=== PATIENT | male | born 1945 | race Caucasian/White ===

== ENCOUNTER 2019-04-29 12:52 | Inpatient (IN) | payer OTHER ==
[2019-04-29] MEDS ORDERED: nitroGLYCERIN DRIP* 25,000 MCG/250 ML BTL IV ONE (13:10)
[2019-04-29] MEDS ORDERED: Furosemide IV* 10 MG/ML VIAL (40 MG) IV SLOW PU ONE (13:10)
--- NOTE | 2019-04-29 13:27 | ED ---
Altered Mental Status - HPI Summary HPI Summary: HPI IS LIMITED DUE TO LEVEL 5 CAVEAT - ALTERED MENTAL STATUS Pt is a 74 y/o M presenting to the ED via EMS for AMS. Pt is present with his sister and another family member. Pt was found by his sister lying on the floor. Pts sister states that pt has not been taking his medications including Lisinopril because [facility] [place]. On the night of 04/28/19, pt was symptomatic. The morning of , pt had a skin tear on his arm, was incoherent and confused when found by his family. Pts family states he uses oxygen at home. Pt lives in [place]. - History Of Current Complaint Chief Complaint: EDAltMentalStatus Stated Complaint: AMS PER EMS Time Seen by Provider: 04/29/19 13:03 Hx Obtained From: Family/Health Aid - Sister and another family member Hx From Patient Unobtainable Due To: Altered Mental Status Onset/Duration: Suddenly Timing: Constant, Lasting Minutes Severity Initially: Severe Severity Currently: Severe Character: Confusion Aggravating Factor(s): Unknown Alleviating Factor(s): Unknown - Allergies/Home Medications Allergies/Adverse Reactions: Allergies Allergy/AdvReac Type Severity Reaction Status Date / Time No Known Allergies Allergy Verified 05/15/12 14:04 Home Medications: Home Medications Atorvastatin* [Lipitor*] 10 mg PO DAILY 04/29/19 [History Confirmed 04/29/19] Carvedilol TAB* [Coreg TAB*] 50 mg PO BID 04/29/19 [History Confirmed 04/29/19] Colchicine* [Colcrys*] 0.6 mg PO DAILY 04/29/19 [History Confirmed 04/29/19] Colchicine* [Colcrys*] 1.2 mg PO DAILY 04/29/19 [History Confirmed 04/29/19] Doxepin HCl [Silenor] 10 mg PO BEDTIME 04/29/19 [History Confirmed 04/29/19] Folic Acid TAB* [Folvite TAB*] 1 mg PO DAILY 04/29/19 [History Confirmed ] Furosemide TAB* [Lasix TAB*] 20 mg PO DAILY 04/29/19 [History Confirmed 04/29/19 ] Isosorbide Mononitrate ER TAB* [Imdur ER TAB*] 30 mg PO DAILY 04/29/19 [History Confirmed 04/29/19] Levothyroxine TAB* [Synthroid TAB*] 50 mcg PO DAILY 04/29/19 [History Confirmed 04/29/19] Lisinopril TAB* [Prinivil TAB*] 40 mg PO DAILY 04/29/19 [History Confirmed 04/29] Omeprazole CAP (NF) [Prilosec CAP* 20 MG] 20 mg PO DAILY 04/29/19 [History Confirmed 04/29/19] Rivaroxaban TAB(*) [Xarelto 20 mg] 20 mg PO DAILY 04/29/19 [History Confirmed ] metFORMIN* [Glucophage 1000 MG TAB *] 1,000 mg PO BID 04/29/19 [History Confirmed 04/29/19] PMH/Surg Hx/FS Hx/Imm Hx Previously Healthy: No - LIMITED DUE TO LEVEL 5 CAVEAT - ALTERED MENTAL STATUS Endocrine/Hematology History: Reports: Hx Diabetes Denies: Hx Anticoagulant Therapy, Hx Thyroid Disease Cardiovascular History: Reports: Hx Hypertension Denies: Hx Pacemaker/ICD Respiratory History: Reports: Hx Asthma, Hx Chronic Obstructive Pulmonary Disease (COPD) - YES 02 DEPENDENT AT HOME History: Denies: Hx Renal Disease Neurological History: Denies: Hx Dementia, Hx Seizures Psychiatric History: Denies: Hx Substance Abuse - Surgical History Surgical History: None Surgery Procedure, Year, and Place: None Infectious Disease History: Unable to Obtain/Confirm Infectious Disease History: Denies: Hx Hepatitis, Hx Human Immunodeficiency Virus (HIV), Traveled Outside the [place] in Last 30 Days - Family History Known Family History: Negative: Diabetes - Social History Alcohol Use: None Hx Substance Use: No Substance Use Type: Reports: None Smoking Status (MU): Unknown if Ever Smoked Review of Systems Positive: Other - Positive skin tear Neurological: Other - Positive confusion and incoherent per family All Other Systems Reviewed And Are Negative: No - Comments Additional Review of Systems Comments: ROS IS LIMITED DUE TO LEVEL 5 CAVEAT - ALTERED MENTAL STATUS Physical Exam - Summary Physical Exam Summary: PHYSICAL EXAM IS LIMITED BY LEVEL 5 CAVEAT - ALTERED MENTAL STATUS Constitutional: Well-developed, Well-nourished, Alert. (-) Distressed Skin: Warm, Dry HENT: Normocephalic; Atraumatic Eyes: Conjunctiva normal Neck: Musculoskeletal ROM normal neck. (-) JVD, (-) Stridor, (-) Tracheal deviation Cardio: Rhythm regular, rate normal, Heart sounds normal; Intact distal pulses; The pedal pulses are 2+ and symmetric. Radial pulses are 2+ and symmetric. (-) Murmur Pulmonary/Chest wall: Effort normal. (-) Respiratory distress, (-) Wheezes. Bilateral rales. Abd: Soft, (-) tenderness, (-) Distension, (-) Guarding, (-) Rebound Musculoskeletal: (-) Edema Lymph: (-) Cervical adenopathy Neuro: does not respond to painful stimulus, no appropriate answers to questions , aphasic, no focal motor deficits. Psych: Mood and affect Normal Triage Information Reviewed: Yes Vital Signs On Initial Exam: Initial Vitals Temp Pulse Resp BP Pulse Ox 97.5 F 103 26 202/166 99 04/29/19 12:55 04/29/19 12:55 04/29/19 12:55 04/29/19 12:55 04/29/19 12:55 Vital Signs Reviewed: Yes Completion Of Physical Exam Limited Due To: Altered Mental Status - Warren Coma Scale Best Eye Response: 4 - Spontaneous Best Motor Response: 5 - Purposeful Movement Best Verbal Response: 4 - Confused Coma Scale Total: 13 Procedures - Sedation Patient Received Moderate/Deep Sedation with Procedure: No - Intubation Time of Intubation: 14:34 Intubation Method: orotracheal Tube Size (cm): 8.0 Medications: Succinylcholine Breath Sounds after Intubation: equal Intubation Complications: no complications Post Intubation Xray: Yes Diagnostics - Vital Signs Vital Signs Temp Pulse Resp BP Pulse Ox 04/29/19 12:55 97.5 F 103 26 202/166 99 - Laboratory Result Diagrams: 05/02/19 05:00 05/02/19 05:00 Lab Statement: Any lab studies that have been ordered have been reviewed, and results considered in the medical decision making process. - Radiology Chest X-ray 1 Radiology Interpretation Completed By: Radiologist Summary of Radiographic Findings: Chest X-ray IMPRESSION: LIMITED STUDY. LEFT BASILAR ATELECTASIS VERSUS CONSOLIDATION. Reviewed by ED physician. Chest X-ray 2 Radiology Interpretation Completed By: Radiologist Summary of Radiographic Findings: Chest X-ray IMPRESSION: THE NASOGASTRIC TUBE PROJECTS OVER THE MEDIASTINUM AT THE LEVEL OF THE. JUANCHO. RECOMMEND REPOSITIONING. Reviewed by ED physician. - CT Brain CT CT Interpretation Completed By: Radiologist Summary of CT Findings: Brain CT IMPRESSION: BILATERAL CHRONIC APPEARING SUBDURAL HEMATOMAS/SUBDURAL HYGROMAS. NO ACUTE INTRACRANIAL. PATHOLOGY. Reviewed by ED physician. Cervical Spine CT CT Interpretation Completed By: Radiologist Summary of CT Findings: Cervical Spine CT IMPRESSION: LIMITED STUDY SECONDARY TO MOTION ARTIFACT. WHILE THERE IS NO GROSS DISPLACED FRACTURE,. THIS STUDY IS NOT CONSIDERED DIAGNOSTIC FOR THE DETECTION OF A NONDISPLACED CERVICAL SPINE. FRACTURE. Reviewed by ED physician. - EKG 13:09 Cardiac Rate: Other Rate - 99 BPM EKG Rhythm: Atrial Fibrillation ST Segment: Normal Ectopy: None Summary of EKG Findings: EKG at 13:09 shows 99 BPM with atrial fibrillation, no STEMI. Reviewed and interpreted by ED physician. Altered Mental Statu Course/Dx - Course Course Of Treatment: LIMITED DUE TO LEVEL 5 CAVEAT - ALTERED MENTAL STATUS. Pt is a 74 y/o M presenting to the ED via EMS for AMS. Pt is present with his sister and another family member. Pt was found by his sister lying on the floor. Pts sister states that pt has not been taking his medications including Lisinopril because the [facility] [place]. On the night of 04/28/19, pt was symptomatic. The morning of , pt had a skin tear on his arm, was incoherent and confused when found by his family. Pts family states he uses oxygen at home. Pt lives in [place]. On exam, does not respond to painful stimulus, no appropriate answers to questions , bilateral rales, aphasic, no focal motor deficits. EKG at 13:09 shows 99 BPM with atrial fibrillation, no STEMI. In the ED course, pt was given NTG 67405 mcg in 250 mls IV, furosemide 80 mg IV, propofol 15 mcg/kg/min IV, and ativan 1 ea IV. Laboratory abnormal findings: RBC 5.57, absolute neuts 8.6, ABG pH 7.27 , ABG pCO2 75, ABG base excess 3.9, sodium 133, potassium 5.6, chloride 95, BUN/ creatinine 25.3, glucose 168, b-natriuretic peptide 272, urine color red, urine RBC 3+. Intubation Procedure: At 14:34, orotracheal intubation method with 8.0 cm tube, succinylcholine, equal breath sounds, no complications. End-tidal capnography waveform is normal. Clinically, the patient presents in respiratory distress as evidenced by severe tachypnea and wheezing, his breath sounds are coarse, his mentation is poor. Given his PCO2 75 and respiratory acidosis, we elected for ventilatory management, starting with Vapotherm and then BiPAP with no significant improvement. The patient did not tolerate BiPAP and required multiple doses of sedation to tolerate this. At this point Dr. Sherif Strong, the supervisor cell operation was present in the emergency department and we made a joint decision to intubate the patient as he was no longer protecting his airway. The family was agreeable. Bacon insertion was somewhat traumatic, a coud was passed, the Bacon bag is now filling with blood. The patient's anticoagulated and the supervisor cell operation plans reversal of anticoagulation. The patient is hemodynamically stable. At 14:50, Dr. Sherif Strong agrees to admit the pt to [facility] with a diagnosis of CO2 narcosis, respiratory acidosis, and acute respiratory failure. Patient will be admitted to [facility] with a diagnosis of CO2 narcosis, respiratory acidosis, and acute respiratory failure. - Diagnoses Provider Diagnoses: CO2 narcosis, Respiratory acidosis, Acute respiratory failure - Provider Notifications Discussed Care Of Patient With: Sherif Strong Time Discussed With Above Provider: 14:50 - At 14:50, Dr. Sherif Strong agrees to admit the pt to [facility] with a diagnosis of CO2 narcosis, respiratory acidosis, and acute respiratory failure. Instructed by Provider To: Admit As Inpatient - Critical Care Time Critical Care Time: 75-104 min Discharge ED - Sign-Out/Discharge Documenting (check all that apply): Patient Departure - Admit - Discharge Plan Condition: Stable Disposition: ADMITTED TO [facility] - Billing Disposition and Condition Condition: STABLE Disposition: Admitted to [facility] - Attestation Statements Document Initiated by Scribe: Yes Documenting Scribe: Nilda Campos Provider For Whom Yaquelin is Documenting (Include Credential): Taran Osorio MD Scribe Attestation: Nilda Epps, scribed for Taran Osorio MD on 05/02/19 at 0730. Scribe Documentation Reviewed: Yes Provider Attestation: The documentation as recorded by the Nilda pal accurately reflects the service I personally performed and the decisions made by me, Taran Osorio MD Status of Scribe Document: Viewed
[2019-04-29 13:37] LABS: ABS Eosinophils 0.2 10^3/ul (0-0.6); ABS Monocytes 0.6 10^3/ul (0-0.8); ABS Neutrophils 8.6 10^3/ul (1.5-7.7); Hematocrit 47 % (42-52); Hemoglobin 15.8 g/dL (14.0-18.0); Lymphocyte % 9.3 %; Mean Corpuscular HGB Conc 33 g/dL (31-36); Mean Corpuscular Hemoglobin 28 pg (27-31); Mean Corpuscular Volume 85 fL (80-94); Mean Platelet Volume 7.6 fL (7.4-10.4); Platelet Count 261 10^3/uL (150-450); Red Blood Count 5.57 10^6 /uL (4.18-5.48); Red Cell Distribution Width 14 % (10-15); White Blood Count 10.3 10^3/uL (3.5-10.8)
[2019-04-29 13:43] LABS: INR 1.09 (0.82-1.09)
[2019-04-29] MEDS ORDERED: Lorazepam PYXIS KEY PRN ×2 (13:44→14:06)
[2019-04-29] MEDS ORDERED: LORazepam INJ* 2 MG/ML 1 ML VIAL IV PUSH ONE ×2 (13:44→14:06)
[2019-04-29] MEDS ORDERED: Lorazepam PYXIS KEY ONE (13:46)
[2019-04-29 13:54] LABS: ALT 22 U/L (7-52); AST 22 U/L (13-39); Albumin 4.3 g/dL (3.2-5.2); Albumin/Globulin Ratio 1.3 (1-3); Alkaline Phosphatase 57 U/L (34-104); BUN/Creatinine Ratio 25.3 (8-20); Blood Urea Nitrogen 19 mg/dL (6-24); CO2 Carbon Dioxide 31 mmol/L (22-32); Calcium 9.6 mg/dL (8.6-10.3); Chloride 95 mmol/L (101-111); Creatine Kinase 163 U/L (10-223); EGFR African American 123.9 (>60); EGFR Non-African American 102.4 (>60); Globulin 3.4 g/dL (2-4); Glucose 168 mg/dL (70-100); Sodium 133 mmol/L (135-145); Total Protein 7.7 g/dL (6.4-8.9)
[2019-04-29 13:57] LABS: Troponin I 0.01 ng/mL (<0.04)
[2019-04-29 13:59] LABS: Myoglobin 68.6 ng/mL (17.4-105.7)
[2019-04-29 14:01] LABS: Anion Gap 7 mmol/L (2-11); Potassium 5.6 mmol/L (3.5-5.0)
[2019-04-29 14:10] LABS: Alcohol < 10 mg/dL (<10)
[2019-04-29 14:10] LABS: Urine Color Red; Urine Specific Gravity 1.016 (1.010-1.030)
[2019-04-29 14:16] LABS: Urine Appearance Cloudy; Urine Bacteria Absent (Absent); Urine Red Blood Cell 3+(>10/hpf) (Absent); Urine White Blood Cell Trace(0-5/hpf) (Absent)
[2019-04-29] MEDS ORDERED: Propofol* 100 ML ONE (14:21)
[2019-04-29] MEDS ORDERED: Succinylcholine* 20 MG/ML 10 ML VIAL ONE (14:30)
[2019-04-29] MEDS ORDERED: Etomidate* 2 MG/ML 20 ML VIAL (40 MG) ONE (14:30)
[2019-04-29] MEDS: Propofol* 100 ML IV ONE ×2 (14:41→20:00)
[2019-04-29] MEDS: Lactated Ringers 1000 ML Bag* 1,000 ML IV SCH (16:31)
[2019-04-29] MEDS: fentaNYL* 50 MCG/ML 2 ML VIAL (100 MCG VIAL) IV SLOW PU PRN (17:15)
[2019-04-29] MEDS ORDERED: fentaNYL* 50 MCG/ML 2 ML VIAL (100 MCG VIAL) ONE (17:19)
[2019-04-29] MEDS: Chlorhexidine MOUTHWASH 0.12%* 15 ML UDC TOPICAL SCH ×2 (18:14→21:41)
[2019-04-29 18:22] LABS: Hematocrit 41 % (42-52); Hemoglobin 13.6 g/dL (14.0-18.0); Mean Corpuscular HGB Conc 34 g/dL (31-36); Mean Corpuscular Hemoglobin 29 pg (27-31); Mean Corpuscular Volume 85 fL (80-94); Mean Platelet Volume 7.9 fL (7.4-10.4); Platelet Count 255 10^3/uL (150-450); Red Blood Count 4.75 10^6 /uL (4.18-5.48); Red Cell Distribution Width 14 % (10-15); White Blood Count 13.4 10^3/uL (3.5-10.8)
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
[2019-04-29] MEDS ORDERED: Lactated Ringers 1000 ML Bag* 500 ML IV SCH (19:00)
[2019-04-29] MEDS ORDERED: Lactated Ringers 1000 ML Bag* 500 ML IV ONE (19:00)
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
[2019-04-29] MEDS: metFORMIN* 1,000 MG TAB PO SCH (21:39)
[2019-04-29] MEDS: Propofol* 100 ML IV SCH (23:23)
[2019-04-29] MEDS: Nystatin CREAM* 15 GM TUBE TOPICAL SCH (23:30)
[2019-04-30] MEDS: Chlorhexidine MOUTHWASH 0.12%* 15 ML UDC TOPICAL SCH ×6 (01:12→21:23)
[2019-04-30] MEDS ORDERED: Metoprolol Tartrate IV* 1 MG/ML 5 ML VIAL IV PRN (01:33)
[2019-04-30] MEDS: Propofol* 100 ML IV SCH ×4 (01:54→14:47)
[2019-04-30] MEDS: fentaNYL* 50 MCG/ML 2 ML VIAL (100 MCG VIAL) IV SLOW PU PRN ×2 (02:40→21:51)
[2019-04-30 05:27] LABS: Hematocrit 43 % (42-52); Hemoglobin 14.2 g/dL (14.0-18.0); Mean Corpuscular HGB Conc 33 g/dL (31-36); Mean Corpuscular Hemoglobin 28 pg (27-31); Mean Corpuscular Volume 85 fL (80-94); Mean Platelet Volume 8.1 fL (7.4-10.4); Platelet Count 219 10^3/uL (150-450); Red Blood Count 5.07 10^6 /uL (4.18-5.48); Red Cell Distribution Width 14 % (10-15); White Blood Count 12.9 10^3/uL (3.5-10.8)
[2019-04-30 05:44] LABS: BUN/Creatinine Ratio 18.5 (8-20); Calcium 8.9 mg/dL (8.6-10.3); EGFR African American 62.9 (>60); Potassium 4.3 mmol/L (3.5-5.0)
[2019-04-30] MEDS ORDERED: Perflutren Lipid Microsphere* 3 ML VIAL ONE (08:14)
[2019-04-30] MEDS ORDERED: Omeprazole CAP (NF) 20 MG CAP.DR PO SCH (09:00)
[2019-04-30] MEDS ORDERED: Lisinopril TAB* 10 MG PO SCH (09:00)
[2019-04-30] MEDS: metFORMIN* 1,000 MG TAB PO SCH ×2 (09:13→21:23)
[2019-04-30] MEDS: Famotidine SUSP ORALSYR 8 MG/ML G TUBE SCH (09:13)
[2019-04-30] MEDS: Levothyroxine TAB* 50 MCG TAB PO SCH (09:13)
[2019-04-30] MEDS: Nystatin CREAM* 15 GM TUBE TOPICAL SCH ×2 (09:14→21:23)
--- NOTE | 2019-04-30 09:24 | ECHO ---
*[facility]* [place] [address] Fax #: [phone] Transthoracic Echocardiogram Patient: Jonah Stone : 1945 Study Date: 04/30/2019 Age: 74 Gender: M HR: 106 bpm Height: 70 in /177.8 cm BSA: 2.17 m^2 Weight: 219.5 lb /99.8 kg BMI: 31.6 kg/m^2 *Real Estate Loan Officer: Nilda Gee [facility] *Referring Physician: * Sherif StrongReading Physician: * Wing Strong MD Indications: Congestive Heart Failure. History: Atrial fibrillation. Congestive heart failure. Chronic obstructive pulmonary disease. Risk factors: Current tobacco use. Conclusions Summary: - Left ventricle: The cavity size is mildly reduced. Wall thickness is mildly increased. Systolic function is normal. The estimated ejection fraction is 60-65%. Wall motion is normal; there are no regional wall motion abnormalities. - Right ventricle: The cavity size is mildly dilated. Systolic function is mildly to moderately reduced. - Left atrium: The atrium is moderately dilated. - Pulmonary arteries: Systolic pressure is mildly increased. The peak pressure during systole by Doppler is 44.0 mm Hg. - No significant valvular abnormalities noted. Recommendations: None prior for comparison at time of interpretation Study data: Transthoracic echocardiogram. Procedure: Transthoracic echocardiography was performed. Image quality was adequate. The study was technically limited due to Patient on ventilator. Intravenous Definity , 2 mlswas administered. Complete 2D, spectral Doppler, and color flow Doppler. Location: ICU Patient status: Inpatient. Patient room number: 2. Rhythm: Atrial fibrillation. Findings Left ventricle: The cavity size is mildly reduced. Wall thickness is mildly increased. Systolic function is normal. The estimated ejection fraction is 60-65%. Wall motion is normal; there are no regional wall motion abnormalities. Left ventricular diastolic function parameters are indeterminate. Right ventricle: The cavity size is mildly dilated. Systolic function is mildly to moderately reduced. Left atrium: The atrium is moderately dilated. Right atrium: The atrium is mildly to moderately dilated. Mitral valve: The leaflets are normal thickness. There is no evidence of stenosis. There is no significant regurgitation. Aortic valve: The valve is probably trileaflet. The leaflets are normal thickness. There is no evidence of stenosis. There is no significant regurgitation. Tricuspid valve: The leaflets are normal thickness. There is no evidence of stenosis. There is trace regurgitation. Pulmonic valve: Not well visualized. The leaflets are normal thickness. There is no significant regurgitation. Aorta: Aortic root: The aortic root is upper normal in size. Ascending aorta: The ascending aorta is appears normal. Aortic arch: The aortic arch is upper normal in size. Pericardium: There is no significant pericardial effusion. Pulmonary arteries: Not well visualized. Systolic pressure is mildly increased. Systemic veins: Inferior vena cava: The vessel is normal in size. Respirophasic changes in dimension are absent. Measurements Left ventricle Value Ref Aortic valve Value Ref ABHINAV, LAX (L) 3.9 cm 4.2 - 5.8 Yevgeniy diam, ED 2.2 cm ----- ESD, LAX 2.5 cm 2.5 - 4.0 Peak v, S 0.99 m/sec ----- FS, LAX 35 % 25 - 43 VTI, S 17.4 cm ----- PW, ED, LAX (H) 1.2 cm 0.6 - 1.0 Mean grad, S 3.0 mm Hg ----- PW/ID, ED 0.31 Peak grad, S 4.0 mm Hg ----- EF 65 % 52 - 72 E', lat yevgeniy, TDI 12.1 cm/sec >=10.0 Mitral valve Value Ref E/e', lat yevgeniy, 6 Peak E 0.7 m/sec ----- TDI Decel time 164 ms ----- E', med yevgeniy, TDI 16.9 cm/sec >=7.0 E/e', med yevgeniy, 4 Pulmonic valve Value Ref TDI Peak v, S 0.78 m/sec ----- E', avg, TDI 14.5 cm/sec Peak grad, S 2.0 mm Hg ----- E/e', avg, TDI 5 <=14 Tricuspid valve Value Ref LVOT Value Ref TR peak v (H) 3.1 m/sec <=2.8 Peak claire, S 0.8 m/sec Peak RV-RA grad, S 38 mm Hg ----- Mean grad, S 1 mm Hg Aortic root Value Ref Ventricular septum Value Ref Root diam 3.5 cm <4.3 IVS, ED (H) 1.6 cm 0.6 - 1.0 Ascending aorta Value Ref Right ventricle Value Ref AAo AP diam, S 3.3 cm ----- ABHINAV, LAX 3.7 cm ABHINAV minor ax, A4C (H) 3.6 cm 1.9 - 3.5 Aortic arch Value Ref mid Arch diam 3.5 cm ----- Pressure, S 46 mm Hg Pulmonary artery Value Ref Left atrium Value Ref Pressure, S 44.0 mm Hg ----- AP dim, ES (H) 4.80 cm 3.00 - 4.00 Inferior vena cava Value Ref ML dim, A4C 6.2 cm Diam 1.6 cm ----- SI dim, A4C 7.4 cm Vol/bsa, ES, A/L (H) 51 ml/m^2 16 - 34 Right atrium Value Ref SI dim, ES (H) 6.0 cm 3.4 - 5.3 ML dim, ES, A4C (H) 4.7 cm 2.6 - 4.4 Estimated RAP 8 mm Hg Legend: (L) and (H) ruben values outside specified reference range. Prepared and electronically signed by Wing Strong MD 04/30/2019 09:24
[2019-04-30] MEDS ORDERED: Gadoteridol* (CONTRAST) 279.3 MG/ML 10 ML IV ONE (11:46)
[2019-04-30] MEDS: Lactated Ringers 1000 ML Bag* 1,000 ML IV SCH (14:49)
[2019-04-30] MEDS: Metoprolol Tartrate IV* 1 MG/ML 5 ML VIAL IV PRN (16:57)
[2019-04-30] MEDS ORDERED: DEXMEDETOMIDINE IV ONE ×2 (17:15)
[2019-04-30] MEDS: Dexmedetomidine* 1,000 MCG in NS 0.9% 250 ML* 240 ML IV SCH (17:38)
--- NOTE | 2019-04-30 21:25 | PN ---
Date of Service: 04/30/19 Critical Care Services: Clinical status unchanged. Remains on ventilator. MRI shows no evidence of subdural empyema or cerical fracture. Switched from propofol to dexmedetomidine - continues to be difficult to arouse. Vital Signs: Temp Pulse Resp BP SpO2 FiO2 97.0 F 85 20 108/75 96 40 Physical Exam: Gen: Unresponsive HEENT: Pupils and corneals reactive. No facial asymmetry Lungs:Coarse rhonchi Cardiac: No murmurs Abdomen:Not distended Extremities: No cyanosis or edema Fluid Balance (Past 24 Hours): 04/30/19 05/01/19 06:59 06:59 Intake Total 1310 755.7 Output Total 854 268 Balance 456 487.7 Weight 219 lb 5.759 oz 219 lb 5.759 oz Intake: IV Fluids 1139 368 LR 1139 368 Medicated IV 121 287.7 CC - Propofol/Diprivan 121 287.7 Oral 0 Tube Feeding Flush Amount 100 NG Tube Irrigate Amount 50 Output: NG Tube Drainage Amount 150 Urine 24 0 Bacon 680 268 Other: Date of Last Bowel 04/30/2019 Movement # Bowel Movements 1 Estimated Stool Amount Medium Labs: 04/29/19 04/30/19 04/30/19 21:35 05:00 05:00 WBC 12.9 H RBC 5.07 Hgb 14.2 Hct 43 MCV 85 MCH 28 MCHC 33 RDW 14 Plt Count 219 MPV 8.1 Sodium 132 L Potassium 4.3 Chloride 93 L Carbon Dioxide 30 Anion Gap 9 BUN 25 Creatinine 1.35 Est GFR ( Amer) 62.9 Est GFR (Non-Af Amer) 52.0 BUN/Creatinine Ratio 18.5 Glucose 160 H POC Glucose (mg/dL) 129 H Calcium 8.9 Studies: MRI scans: as mentioned Cardiac ECHO: dilated right heart. left heart OK Nutrition: None Impression: Exacerbation of COPD. Continues to have decreased consciousness after d/cing propofol. No apparent cause of this continued encephalopathy Plan: Will get neurology evaluation if mental status does not improve. In meantime, will try to wean off ventilator. Critical Care Time: 40 minutes (not including time spent discussing case with family).
[2019-04-30] MEDS: methylPREDNISolone 125 MG* 2 ML VIAL IV SCH (22:45)
[2019-05-01] MEDS: fentaNYL* 50 MCG/ML 2 ML VIAL (100 MCG VIAL) IV SLOW PU PRN ×2 (04:57→10:05)
[2019-05-01] MEDS: Chlorhexidine MOUTHWASH 0.12%* 15 ML UDC TOPICAL SCH ×6 (04:59→20:19)
[2019-05-01] MEDS ORDERED: Lorazepam PYXIS KEY ONE (05:20)
[2019-05-01] MEDS ORDERED: LORazepam INJ* 2 MG/ML 1 ML VIAL ONE (05:20)
[2019-05-01] MEDS ORDERED: Lorazepam PYXIS KEY PRN (05:23)
[2019-05-01] MEDS ORDERED: LORazepam INJ* 2 MG/ML 1 ML VIAL IV PUSH ONE (05:23)
[2019-05-01 05:47] LABS: Hematocrit 44 % (42-52); Hemoglobin 14.4 g/dL (14.0-18.0); Mean Corpuscular HGB Conc 33 g/dL (31-36); Mean Corpuscular Hemoglobin 28 pg (27-31); Mean Corpuscular Volume 85 fL (80-94); Mean Platelet Volume 8.5 fL (7.4-10.4); Platelet Count 199 10^3/uL (150-450); Red Blood Count 5.14 10^6 /uL (4.18-5.48); Red Cell Distribution Width 14 % (10-15); White Blood Count 11.2 10^3/uL (3.5-10.8)
[2019-05-01 05:55] LABS: BUN/Creatinine Ratio 22.4 (8-20); EGFR African American 58.8 (>60); EGFR Non-African American 48.6 (>60); Potassium 4.6 mmol/L (3.5-5.0)
[2019-05-01] MEDS: Dexmedetomidine* 1,000 MCG in NS 0.9% 250 ML* 240 ML IV SCH ×2 (06:48→21:45)
[2019-05-01] MEDS: Nystatin CREAM* 15 GM TUBE TOPICAL SCH ×2 (08:25→20:20)
[2019-05-01] MEDS: methylPREDNISolone 125 MG* 2 ML VIAL IV SCH (08:37)
[2019-05-01] MEDS: Famotidine SUSP ORALSYR 8 MG/ML G TUBE SCH (08:37)
[2019-05-01] MEDS: metFORMIN* 1,000 MG TAB PO SCH ×2 (08:38→20:19)
[2019-05-01] MEDS: Levothyroxine TAB* 50 MCG TAB PO SCH (08:38)
[2019-05-01] MEDS ORDERED: Propofol* 100 ML ONE (10:14)
[2019-05-01] MEDS: Propofol* 100 ML IV SCH ×3 (10:20→22:00)
[2019-05-01] MEDS: Lactated Ringers 1000 ML Bag* 1,000 ML IV SCH (11:41)
[2019-05-01] MEDS: Metoprolol Tartrate IV* 1 MG/ML 5 ML VIAL IV PRN (13:28)
[2019-05-01] MEDS: Cefepime 2 GM in Dextrose(*) 2 GM/50 ML BAG IV SCH (14:06)
[2019-05-01] MEDS ORDERED: hydrALAZINE IV* 20 MG/ML VIAL ONE (15:03)
[2019-05-01] MEDS: hydrALAZINE IV* 20 MG/ML VIAL IV SLOW PU PRN ×2 (15:05→22:25)
--- NOTE | 2019-05-01 16:29 | PN ---
Date of Service: 05/01/19 Critical Care Services: Awoke today and responded to verbal commands. However, became agitated and had to be placed back on propofol. No wean attempts today. Has developed thick, grossly purulent respiratory secretions Vital Signs: Temp Pulse Resp BP SpO2 FiO2 98.1 F 90 23 108/69 95 40 Physical Exam: Gen: Unresponsive (on propofol and precedex) HEENT: Orotrach tube in place Lungs: Coarse rhonchi. No wheezes Cardiac: No murmurs Abdomen: not distended Extremities: 1+ edema Fluid Balance (Past 24 Hours): 04/30/19 05/01/19 05/02/19 06:59 06:59 06:59 Intake Total 1310 1777.7 612 Output Total 854 988 900 Balance 456 789.7 -288 Weight 219 lb 5.759 oz 265 lb 6.985 oz Intake: IV Fluids 1139 1129 LR 1139 1129 IVPB 371 LR 371 Medicated IV 121 548.7 241 CC - Propofol/Diprivan 121 287.7 54 precedex 261 187 Oral 0 0 Tube Feeding Flush Amount 100 NG Tube Irrigate Amount 50 Output: NG Tube Drainage Amount 150 220 Urine 24 0 Bacon 680 988 680 Other: Date of Last Bowel 04/30/2019 04/30/2019 Movement # Bowel Movements 1 Estimated Stool Amount Medium Labs: 05/01/19 05/01/19 04:15 04:15 WBC 11.2 H RBC 5.14 Hgb 14.4 Hct 44 MCV 85 MCH 28 MCHC 33 RDW 14 Plt Count 199 MPV 8.5 Sodium 135 Potassium 4.6 Chloride 97 L Carbon Dioxide 29 Anion Gap 9 BUN 32 H Creatinine 1.43 H Est GFR ( Amer) 58.8 Est GFR (Non-Af Amer) 48.6 BUN/Creatinine Ratio 22.4 H Glucose 198 H Calcium 9.0 Studies: Sputum Gram's stain: 4+ neutrophils, no epithelial cells, 4+ gram+ cocci Nutrition: None since admission (except the propofol) Impression: More aware, but still very agitated. Remains on ventilator, and may have a new lung infection. Plan: start empiric Rx with cefepime. Continue jamila attempts when feasible. Critical Care Time: 50 minutes
[2019-05-01] MEDS: Carvedilol TAB* 25 MG PO SCH (20:19)
[2019-05-02] MEDS: Cefepime 2 GM in Dextrose(*) 2 GM/50 ML BAG IV SCH ×2 (00:40→13:43)
[2019-05-02] MEDS: Chlorhexidine MOUTHWASH 0.12%* 15 ML UDC TOPICAL SCH ×4 (02:23→13:43)
[2019-05-02] MEDS: Propofol* 100 ML IV SCH (03:01)
[2019-05-02 05:18] LABS: Hematocrit 41 % (42-52); Hemoglobin 13.4 g/dL (14.0-18.0); Mean Corpuscular HGB Conc 33 g/dL (31-36); Mean Corpuscular Hemoglobin 28 pg (27-31); Mean Corpuscular Volume 86 fL (80-94); Mean Platelet Volume 8.1 fL (7.4-10.4); Platelet Count 204 10^3/uL (150-450); Red Blood Count 4.81 10^6 /uL (4.18-5.48); Red Cell Distribution Width 14 % (10-15); White Blood Count 10.2 10^3/uL (3.5-10.8)
[2019-05-02 05:33] LABS: BUN/Creatinine Ratio 32.6 (8-20); Calcium 8.8 mg/dL (8.6-10.3); EGFR African American 101.7 (>60); Potassium 4.2 mmol/L (3.5-5.0)
[2019-05-02] MEDS: Lactated Ringers 1000 ML Bag* 1,000 ML IV SCH (09:17)
[2019-05-02] MEDS: Famotidine SUSP ORALSYR 8 MG/ML G TUBE SCH (09:21)
[2019-05-02] MEDS: Carvedilol TAB* 25 MG PO SCH ×2 (09:21→21:52)
[2019-05-02] MEDS: metFORMIN* 1,000 MG TAB PO SCH ×2 (09:21→21:52)
[2019-05-02] MEDS: Levothyroxine TAB* 50 MCG TAB PO SCH (09:21)
[2019-05-02] MEDS: methylPREDNISolone 125 MG* 2 ML VIAL IV SCH (09:21)
[2019-05-02] MEDS: Nystatin CREAM* 15 GM TUBE TOPICAL SCH ×2 (09:30→23:47)
[2019-05-02] MEDS: Albuterol/Ipratropium NEB.SOL* Albuterol 2.5 MG/Ipratropium 0.5 MG 3 ML INH PRN ×2 (14:28→23:54)
--- NOTE | 2019-05-02 15:24 | PN ---
Date of Service: 05/02/19 Critical Care Services: Extubated earlier today and has done well since. Is oxygenating adequately on nasal O2 at 3 L/min. Is confused at times but still able to protect the airways. Vital Signs: Temp Pulse Resp BP SpO2 FiO2 99.1 F 103 18 142/98 98 40 Physical Exam: Gen: Awake and breathing comfortably HEENT: No stridor Lungs: End-exp wheezing both bases Cardiac: Irreg rhythm (AFib) Abdomen: Not distended Extremities: Warm. No cyanosis. Trace edema lower limbs. Fluid Balance (Past 24 Hours): 04/30/19 05/01/19 05/02/19 06:59 06:59 06:59 Intake Total 1310 1777.7 1900 Output Total 953 155 1346 Balance 456 789.7 -220 Weight 219 lb 5.759 oz 265 lb 6.985 oz 265 lb 3.457 oz Intake: IV Fluids 1139 1129 676 LR 1139 1129 676 IVPB 471 LR 471 Medicated IV 121 548.7 683 CC - Propofol/Diprivan 121 287.7 274 precedex 261 409 Oral 0 0 Tube Feeding Flush Amount 100 NG Tube Irrigate Amount 50 70 Output: NG Tube Drainage Amount 150 270 Urine 24 0 Bacon 479 407 3952 Other: Date of Last Bowel 04/30/2019 04/30/2019 Movement # Bowel Movements 1 Estimated Stool Amount Medium Labs: 05/02/19 05/02/19 05:00 05:00 WBC 10.2 RBC 4.81 Hgb 13.4 L Hct 41 L MCV 86 MCH 28 MCHC 33 RDW 14 Plt Count 204 MPV 8.1 Sodium 139 Potassium 4.2 Chloride 100 L Carbon Dioxide 34 H Anion Gap 5 BUN 29 H Creatinine 0.89 Est GFR ( Amer) 101.7 Est GFR (Non-Af Amer) 84.0 BUN/Creatinine Ratio 32.6 H Glucose 184 H Calcium 8.8 Studies: Sputum culture growing Staph aureus, which is consistent with the gram stain. Nutrition: None so far. Impression: 1. Tolerating transition to unassisted breathing at this time. 2. Sputum Gram's stain and culture suggests a Staph pneumonia, but the clinical picture is not convincing. However, will Rx for Staphylococci. 3. The atrophic changes on CT scan of the head indicate probable dementia. Plan: 1. Continue cefepime for the presumed pneumonia. 2. Will use haloperidol to control agitation 3. Transfer out of ICU if tolerates spontaneous breathing overnight. Critical Care Time:
[2019-05-02] MEDS ORDERED: Lorazepam PYXIS KEY PRN (15:36)
[2019-05-02] MEDS: Haloperidol INJ IV/IM* 5 MG/ML AMP IV SLOW PU PRN ×2 (18:46→23:40)
[2019-05-02] MEDS: hydrALAZINE IV* 20 MG/ML VIAL IV SLOW PU PRN (22:45)
[2019-05-02] MEDS: LORazepam INJ* 2 MG/ML 1 ML VIAL IV PUSH PRN (23:40)
[2019-05-02] MEDS ORDERED: Ziprasidone IM INJ* 20 MG/ML VIAL IM PRN (23:52)
--- NOTE | 2019-05-02 23:55 | PN ---
Hospitalist Progress Note Date of Service: 05/02/19 HOSPITALIST ADDENDUM Called by RN because patient is agitated and removing BiPAP. By the time I arrived to bedside, he had received Ativan and was receiving Haldol. He was sedated. CVS: normal S1 and S2, tachycardic Chest: BS+ bilaterally diminished, no added sounds Suspect ICU induced delirium in the setting of dementia. D/w Dr Strong - recommended Geodon if he becomes agitated again and to continue benzos. Will continue to monitor.
[2019-05-03] MEDS: Cefepime 2 GM in Dextrose(*) 2 GM/50 ML BAG IV SCH (01:07)
[2019-05-03] MEDS ORDERED: hydrALAZINE IV* 20 MG/ML VIAL IV SLOW PU ONE ×3 (03:35→17:23)
[2019-05-03] MEDS ORDERED: Labetalol IV* 5 MG/ML 20 ML VIAL IV PUSH ONE ×2 (03:36→04:36)
[2019-05-03 04:47] LABS: Hematocrit 43 % (42-52); Hemoglobin 14.1 g/dL (14.0-18.0); Mean Corpuscular HGB Conc 33 g/dL (31-36); Mean Corpuscular Hemoglobin 28 pg (27-31); Mean Corpuscular Volume 87 fL (80-94); Mean Platelet Volume 8.1 fL (7.4-10.4); Platelet Count 250 10^3/uL (150-450); Red Blood Count 4.97 10^6 /uL (4.18-5.48); Red Cell Distribution Width 14 % (10-15); White Blood Count 8.2 10^3/uL (3.5-10.8)
[2019-05-03 05:01] LABS: BUN/Creatinine Ratio 37.2 (8-20); Calcium 9.1 mg/dL (8.6-10.3); EGFR African American 118.4 (>60); EGFR Non-African American 97.8 (>60); Potassium 4.1 mmol/L (3.5-5.0)
[2019-05-03] MEDS: hydrALAZINE IV* 20 MG/ML VIAL IV SLOW PU PRN (05:03)
[2019-05-03] MEDS: LORazepam INJ* 2 MG/ML 1 ML VIAL IV PUSH PRN (06:27)
[2019-05-03] MEDS: Lactated Ringers 1000 ML Bag* 1,000 ML IV SCH (07:07)
[2019-05-03] MEDS: Nystatin CREAM* 15 GM TUBE TOPICAL SCH ×2 (08:43→20:35)
[2019-05-03] MEDS: Carvedilol TAB* 25 MG PO SCH ×2 (08:44→20:25)
[2019-05-03] MEDS: Famotidine SUSP ORALSYR 8 MG/ML G TUBE SCH (08:44)
[2019-05-03] MEDS: metFORMIN* 1,000 MG TAB PO SCH ×2 (08:45→20:25)
[2019-05-03] MEDS: Levothyroxine TAB* 50 MCG TAB PO SCH (08:45)
[2019-05-03] MEDS ORDERED: Acetaminophen TAB* 325 MG PO PRN (10:46)
[2019-05-03] MEDS: Isosorbide Mononitrate ER TAB* 30 MG PO SCH (10:59)
[2019-05-03] MEDS: methylPREDNISolone 125 MG* 2 ML VIAL IV SCH (10:59)
--- NOTE | 2019-05-03 11:14 | PN ---
Progress Note - Progress Note Date of Service: 05/03/19 Note: Progress Note -- Critical Care 24 hour events/significant events: -extubated yesterday and overnight placed on NIV -agitation episodes overnight requiring ativan to calm him down -he is awake, appears alert, slightly restless but follows commands and speaks -tmax 99.9, BP elevated >160s overnight, mild tachycardia -family at bedside, discussed plan and previous history Tele: NSR, sinus tachy Vitals: Vital Signs Temp 98.7 F 05/03/19 11:04 Pulse 109 05/03/19 09:30 Resp 21 05/03/19 09:30 BP 183/118 05/03/19 09:30 Pulse Ox 92 05/03/19 09:30 Intake & Output 05/02/19 05/03/19 05/03/19 18:59 06:59 18:59 Intake Total 570 730.2 Output Total 570 1350 200 Balance 0 -619.8 -200 Weight 117.3 kg Intake: IV Fluids 376.2 ABX - CEFEPIME 147.2 LR 229 IVPB 410 354 LR 410 354 Medicated IV 160 CC - Propofol/Diprivan 50 precedex 110 Output: Carter 570 1350 200 Other: Date of Last Bowel 05/03/19 Movement # Bowel Movements 1 Estimated Stool Amount Small # Voids 65 O2/Vent: NIV 50%; now on hiflow 50% 40lpm, sats 95%, rr 22 Infusions: LR 50 Medications: Acetaminophen (Tylenol Tab*) 650 mg PO Q6H PRN PRN Reason: PAIN - MILD Last Admin: 05/03/19 10:59 Dose: 650 mg Albuterol/Ipratropium (Duoneb (Albuterol 2.5 Mg/Ipratropium 0.5 Mg)) 1 neb INH Q6H PRN PRN Reason: SOB/WHEEZING Last Admin: 05/02/19 23:54 Dose: 1 neb Carvedilol (Coreg Tab*) 50 mg PO BID JAYY Last Admin: 05/03/19 08:44 Dose: Not Given Famotidine (Pepcid Susp 8mg/Ml) 20 mg PO DAILY [facility] Haloperidol Lactate (Haldol Inj Iv/Im*) 5 mg IV SLOW PU Q4H PRN PRN Reason: AGITATION Hydralazine HCl (Apresoline Iv*) 10 mg IV SLOW PU Q6H PRN PRN Reason: BLOOD PRESSURE Last Admin: 05/03/19 05:03 Dose: 10 mg Cefepime HCl (Maxipime 2 Gm In Dextrose Duplex (*)) 2 gm in 50 mls @ 100 mls/ hr IV Q12H [facility] Last Admin: 05/03/19 01:07 Dose: 100 mls/hr Isosorbide Mononitrate (Imdur Er Tab*) 30 mg PO DAILY [facility] Last Admin: 05/03/19 10:59 Dose: 30 mg Levothyroxine Sodium (Synthroid Tab*) 50 mcg PO DAILY [facility] Last Admin: 05/03/19 08:45 Dose: Not Given Lorazepam (Ativan Inj*) 1 mg IV PUSH Q6H PRN PRN Reason: ANXIETY Last Admin: 05/03/19 06:27 Dose: 1 mg Metformin HCl (Glucophage*) 1,000 mg PO BID [facility] Last Admin: 05/03/19 08:45 Dose: Not Given Methylprednisolone Sodium Succinate (Solu-Medrol 125mg *) 60 mg IV DAILY [facility] Last Admin: 05/03/19 10:59 Dose: 60 mg Miscellaneous (Ativan Pyxis Ellis) 1 ea N/A .ATIVAN IV ELLIS PRN PRN Reason: PYXIS ELLIS Nystatin (Nystatin Cream*) 1 applic TOPICAL BID [facility] Last Admin: 05/03/19 08:43 Dose: 1 applic Ziprasidone (Geodon Im Inj*) 10 mg IM ONCE PRN PRN Reason: Severe agitation Last Admin: 05/03/19 01:50 Dose: 10 mg Physical Exam: Constitutional: awake, alert, restless sometimes, no distress, no diaphoresis Head: normocephalic, atraumatic Eyes: no pallor, no icterus ENT: moist mucous membranes Neck: soft, supple, no jvd, no stridor CVS: normal rate, regular, no murmur Chest/Resp: bilateral air entry, distant breath sounds+, no rhales, no wheeze, no rhonchi, no acc muscle use Abdomen/GI: soft, nontender, nondistended, BS+ Ext/Msk: warm, pulses+, no edema Skin: intact, warm Neuro: awake, semi-alert, appears confused at times, orientedx1-2, moving all extremities, no gross focal deficit Psych: normal affect Labs: Laboratory Results - last 24 hr 05/03/19 05/03/19 04:24 04:24 WBC 8.2 RBC 4.97 Hgb 14.1 Hct 43 MCV 87 MCH 28 MCHC 33 RDW 14 Plt Count 250 MPV 8.1 Sodium 143 Potassium 4.1 Chloride 103 Carbon Dioxide 33 H Anion Gap 7 BUN 29 H Creatinine 0.78 Est GFR ( Amer) 118.4 Est GFR (Non-Af Amer) 97.8 BUN/Creatinine Ratio 37.2 H Glucose 151 H Calcium 9.1 Imaging: CXR 05/01 - small left basal infiltrate Assessment: 74y M w/pmhx of HTN, Afib on Xarelto, DM2, Hypothyroidism, LV diastolic dysfunction, Gout, Chronic hypoxia on Home O2; admitted 04/29 after being found unresponsive, acute on chronic hypercapnic/hypoxic in ER and so was intubated. Found to have bilateral subdural hematomas, reversed Xarelto with Kcentra, but Neurosurgery suspected chronic hygromas, no surgical intervention suspected. Poor compliance with medications, history of confusion for months. Suspected COPD exacerbation with MSSA left lower lobe pneumonia as etiology. Extubated 05/02. Has been having intermittent restlessness and agitation since extubation, consistent with delirium, multifactorial. 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; no neurosurgical intervention -avoid AC given falls and subdurals, high-risk of rebleeds -Delirium prec CVS- -Afib, rate controlled; cont coreg -holding off AC due to falls/bleeding/subdurals -hypertensive, not well controlled, history of noncompliance as per family; restarted lisinopril/imdur; hydralazine prn -CHF; restart lasix 20mg po daily -d/c IVF -Maintain MAP>65 Resp- -on NIV overnight; change to Hiflow 50% 40lpm now, tolerating well -no active wheezing; cont solumedrol 60mg iv daily -cont duoneb q6h rtc -IV abx for MSSA pneumonia -Wean Fio2 to keep sat>92% -Bronchodilators PRN, Aspiration prec ID- tmax 99.9, wbc normallized. -sputum culture with MSSA+ -CXR last with left lower lobe infiltrate+ -Change cefepime to CTX 1gm iv daily for MSSA pneumonia (day 3 of 5) GI- -Bedside swallow eval passed -history of coughing as per famliy when he eats and bouts of it; obtain formal swallow eval and even barium study if needed -diabetic diet, mechanical soft -GI prophylaxis - h2b Renal- -strict I/O, replete to keep K>4, Mg>2 -carter as indicated Heme- hg stable -off AC due to subdurals and history of falls Endo-Maintain BG<200, insulin protocol as needed; on metformin 1gm bid. -cont synthroid 50mcg po daily Musculsk- pressure ulcer prophylaxis. oob to chair Wounds- none Nutrition- diabetic diet, mech soft for now DVT prophylaxis: SCDs GI prophylaxis: h2b Central Line: no Arterial Line: no Carter Cathetor: yes Disposition: Patient requires Critical Care/ICU for respiratory failure req HIflow, delirium, pneumonia Patient clinical status: guarded Code Status: full code Total Critical Care time is 50 minutes, excluding procedures/teaching Karson Brian MD Turf Keeper (Electronically Signed)
[2019-05-03] MEDS: Famotidine SUSP ORALSYR 8 MG/ML PO SCH (11:43)
[2019-05-03] MEDS: cefTRIAXone(*) 1 GM in NS 0.9% 50 ML* 50 ML IVPB SCH (12:14)
[2019-05-03] MEDS ORDERED: traMADol TAB* 50 MG PO PRN (13:56)
[2019-05-03] MEDS ORDERED: traMADol TAB* 50 MG ONE (14:01)
[2019-05-03] MEDS ORDERED: Acetaminophen IV 1GM/100ML * 100 ML IVPB SCH (18:00)
--- NOTE | 2019-05-03 18:50 | PN ---
Progress Note - Progress Note Date of Service: 05/03/19 Note: Reviewed imaging, MRI of Brain with and with out contrast, hematoma appear chronic no apparent signs of empyema. The cervical spine MRI also did not demonstrate any acute injury. Patient was seen this evening was extubated, he does open his name on command, but had difficulty following commands. he was able to wiggle toes and squeeze my hand after several prompts, but was able to answer questions. His siblings were at bedside and observed that patient would occasionally answer questions, but would have episodes of confusion. Also states that patient indicated having head pain. Since patient had an unwitnessed fall will recommend completion of either CT scan or X rays of thoracic and lumbar spine. Also spoke with Dr. Brian at bedside, he will order repeat CT of the head since patient has complained of headache. Will follow up once imaging is completed.
[2019-05-03] MEDS: Albuterol/Ipratropium NEB.SOL* Albuterol 2.5 MG/Ipratropium 0.5 MG 3 ML INH SCH ×2 (18:53→19:22)
[2019-05-03] MEDS: Haloperidol INJ IV/IM* 5 MG/ML AMP IV SLOW PU PRN (22:25)
[2019-05-04] MEDS: LORazepam INJ* 2 MG/ML 1 ML VIAL IV PUSH PRN ×2 (00:30→14:31)
[2019-05-04] MEDS ORDERED: Acetaminophen IV 1GM/100ML * 100 ML IVPB PRN (01:00)
[2019-05-04] MEDS: Albuterol/Ipratropium NEB.SOL* Albuterol 2.5 MG/Ipratropium 0.5 MG 3 ML INH SCH ×4 (01:26→19:06)
[2019-05-04] MEDS: hydrALAZINE IV* 20 MG/ML VIAL IV SLOW PU PRN ×2 (02:36→18:34)
[2019-05-04 05:02] LABS: Hematocrit 42 % (42-52); Hemoglobin 13.5 g/dL (14.0-18.0); Mean Corpuscular HGB Conc 32 g/dL (31-36); Mean Corpuscular Hemoglobin 28 pg (27-31); Mean Corpuscular Volume 87 fL (80-94); Mean Platelet Volume 8.1 fL (7.4-10.4); Platelet Count 244 10^3/uL (150-450); Red Blood Count 4.78 10^6 /uL (4.18-5.48); Red Cell Distribution Width 14 % (10-15); White Blood Count 7.1 10^3/uL (3.5-10.8)
[2019-05-04 05:15] LABS: BUN/Creatinine Ratio 43.9 (8-20); Calcium 9.1 mg/dL (8.6-10.3); EGFR African American 143.6 (>60); EGFR Non-African American 118.6 (>60); Magnesium 2.1 mg/dL (1.9-2.7); Phosphorus 2.9 mg/dL (2.5-5.0); Potassium 4.1 mmol/L (3.5-5.0)
[2019-05-04] MEDS: Carvedilol TAB* 25 MG PO SCH ×3 (05:19→22:24)
[2019-05-04] MEDS: methylPREDNISolone 125 MG* 2 ML VIAL IV SCH ×2 (08:01→22:24)
[2019-05-04] MEDS: Levothyroxine TAB* 50 MCG TAB PO SCH (08:02)
[2019-05-04] MEDS: Isosorbide Mononitrate ER TAB* 30 MG PO SCH (08:02)
[2019-05-04] MEDS: metFORMIN* 1,000 MG TAB PO SCH ×2 (08:02→22:24)
[2019-05-04] MEDS: Furosemide TAB* 20 MG PO SCH (08:02)
[2019-05-04] MEDS: Famotidine SUSP ORALSYR 8 MG/ML PO SCH ×2 (08:03→22:24)
[2019-05-04] MEDS ORDERED: Lisinopril TAB* 10 MG PO SCH (09:00)
[2019-05-04] MEDS: Nystatin CREAM* 15 GM TUBE TOPICAL SCH ×2 (09:19→23:08)
--- NOTE | 2019-05-04 10:31 | PN ---
Progress Note - Progress Note Date of Service: 05/04/19 Note: Progress Note -- Critical Care 24 hour events/significant events: -yesterday had headache all day, requiring tylenol, tramadol -was in chair much of day on hiflow, toelrated well -evening had fluctuating mental status, intermittent unresponsiveness with then back to communicating. -CT brain repeated -ABG last night with no acute worsening hypercapnea -on NIV overnight -this morning awake, alert, oriented x3, no complaints offered, feels okay; but slightly confused -family at bedside -afebrile, BP 140-150s, mild tachycardia, sats 95% on 5L NC Tele: afib, tachy Vitals: Vital Signs Temp 97.9 F 05/04/19 08:00 Pulse 117 05/04/19 10:01 Resp 20 05/04/19 10:01 BP 137/99 05/04/19 10:01 Pulse Ox 96 05/04/19 10:01 Intake & Output 05/03/19 05/04/19 05/04/19 18:59 06:59 18:59 Intake Total 465 355 300 Output Total 580 925 150 Balance -115 -570 150 Weight 118.8 kg Intake: IV Fluids 65 115 LR 65 Tylenol 115 IVPB 50 ABX - CEFEPIME 50 Oral 350 240 300 Output: Carter 580 925 150 Other: # Bowel Movements 2 Estimated Stool Amount Medium Large O2/Vent: NC 5 L Infusions: heplock Medications: Acetaminophen (Tylenol Tab*) 650 mg PO Q6H PRN PRN Reason: PAIN - MILD Last Admin: 05/03/19 10:59 Dose: 650 mg Albuterol/Ipratropium (Duoneb (Albuterol 2.5 Mg/Ipratropium 0.5 Mg)) 1 neb INH [id number] AWAKE [facility] Last Admin: 05/04/19 08:28 Dose: 1 neb Carvedilol (Coreg Tab*) 50 mg PO BID [facility] Last Admin: 05/04/19 07:46 Dose: Not Given Famotidine (Pepcid Susp 8mg/Ml) 20 mg PO DAILY [facility] Last Admin: 05/04/19 08:03 Dose: Not Given Furosemide (Lasix Tab*) 20 mg PO DAILY [facility] Last Admin: 05/04/19 08:02 Dose: 20 mg Haloperidol Lactate (Haldol Inj Iv/Im*) 5 mg IV SLOW PU Q4H PRN PRN Reason: AGITATION Last Admin: 05/03/19 22:25 Dose: 5 mg Hydralazine HCl (Apresoline Iv*) 10 mg IV SLOW PU Q6H PRN PRN Reason: BLOOD PRESSURE Last Admin: 05/04/19 02:36 Dose: 10 mg Ceftriaxone Sodium 1 gm/ (Sodium Chloride) 50 mls @ 200 mls/hr IVPB Q24H [facility] Stop: 05/06/19 11:59 Last Admin: 05/03/19 12:14 Dose: 200 mls/hr Acetaminophen (Ofirmev*) 100 mls @ 400 mls/hr IVPB Q8H PRN PRN Reason: .MD LOVE Isosorbide Mononitrate (Imdur Er Tab*) 30 mg PO DAILY [facility] Last Admin: 05/04/19 08:02 Dose: 30 mg Levothyroxine Sodium (Synthroid Tab*) 50 mcg PO DAILY [facility] Last Admin: 05/04/19 08:02 Dose: 50 mcg Lorazepam (Ativan Inj*) 1 mg IV PUSH Q6H PRN PRN Reason: ANXIETY Last Admin: 05/04/19 00:30 Dose: 1 mg Metformin HCl (Glucophage*) 1,000 mg PO BID [facility] Last Admin: 05/04/19 08:02 Dose: 1,000 mg Methylprednisolone Sodium Succinate (Solu-Medrol 125mg *) 60 mg IV DAILY [facility] Last Admin: 05/04/19 08:01 Dose: 60 mg Miscellaneous (Ativan Pyxis Ellis) 1 ea N/A .ATIVAN IV ELLIS PRN PRN Reason: PYXIS ELLIS Nystatin (Nystatin Cream*) 1 applic TOPICAL BID [facility] Last Admin: 05/04/19 09:19 Dose: 1 applic Quetiapine Fumarate (Seroquel Tab*) 12.5 mg PO DAILY [facility] Tramadol HCl (Ultram*) 50 mg PO Q8H PRN PRN Reason: PAIN - MODERATE Stop: 05/05/19 13:55 Last Admin: 05/03/19 14:05 Dose: 50 mg Physical Exam: Constitutional: awake, alert, no distress, no diaphoresis Head: normocephalic, atraumatic Eyes: no pallor, no icterus ENT: moist mucous membranes Neck: soft, supple, no jvd, no stridor CVS: tachy, irregular, no murmur Chest/Resp: bilateral air entry, distant breath sounds+, no rhales, no wheeze, no rhonchi, no acc muscle use Abdomen/GI: soft, nontender, nondistended, BS+ Ext/Msk: warm, pulses+, no edema Skin: intact, warm Neuro: awake, alert, mild confusion at times, orientedx3, moving all extremities , no gross focal deficit Psych: normal affect Labs: Laboratory Results - last 24 hr 05/03/19 05/03/19 05/03/19 12:30 17:18 18:47 WBC RBC Hgb Hct MCV MCH MCHC RDW Plt Count MPV Patient Temperature Not Reportable ABG pH 7.41 ABG pH (Temp Correct) Not Reportable ABG pCO2 62 H ABG pCO2 (Temp Corrct Not Reportable ABG pO2 114 H ABG pO2 (Temp Correct Not Reportable ABG HCO3 34.3 H ABG O2 Saturation 99.7 H ABG Base Excess 12.0 H Respiration Rate Not Reportable O2 Delivery Device 40 lpm vapo Ventilator Type Not Reportable Vent Mode Not Reportable FiO2 50 Inspiratory Time Not Reportable PEEP Not Reportable Pressure Support Not Reportable Pressure Control Not Reportable EPAP Not Reportable IPAP Not Reportable BiPAP Not Reportable Sodium Potassium Chloride Carbon Dioxide Anion Gap BUN Creatinine Est GFR ( Amer) Est GFR (Non-Af Amer) BUN/Creatinine Ratio Glucose POC Glucose (mg/dL) 191 H 205 H Calcium Phosphorus Magnesium Ammonia 05/03/19 05/04/19 05/04/19 20:40 04:35 04:35 WBC RBC Hgb Hct MCV MCH MCHC RDW Plt Count MPV Patient Temperature ABG pH ABG pH (Temp Correct) ABG pCO2 ABG pCO2 (Temp Corrct ABG pO2 ABG pO2 (Temp Correct ABG HCO3 ABG O2 Saturation ABG Base Excess Respiration Rate O2 Delivery Device Ventilator Type Vent Mode FiO2 Inspiratory Time PEEP Pressure Support Pressure Control EPAP IPAP BiPAP Sodium 140 Potassium 4.1 Chloride 102 Carbon Dioxide 35 H Anion Gap 3 BUN 29 H Creatinine 0.66 L Est GFR ( Amer) 143.6 Est GFR (Non-Af Amer) 118.6 BUN/Creatinine Ratio 43.9 H Glucose 148 H POC Glucose (mg/dL) 203 H Calcium 9.1 Phosphorus 2.9 Magnesium 2.1 Ammonia TNP 05/04/19 05/04/19 05/04/19 04:35 06:00 07:50 WBC 7.1 RBC 4.78 Hgb 13.5 L Hct 42 MCV 87 MCH 28 MCHC 32 RDW 14 Plt Count 244 MPV 8.1 Patient Temperature ABG pH ABG pH (Temp Correct) ABG pCO2 ABG pCO2 (Temp Corrct ABG pO2 ABG pO2 (Temp Correct ABG HCO3 ABG O2 Saturation ABG Base Excess Respiration Rate O2 Delivery Device Ventilator Type Vent Mode FiO2 Inspiratory Time PEEP Pressure Support Pressure Control EPAP IPAP BiPAP Sodium Potassium Chloride Carbon Dioxide Anion Gap BUN Creatinine Est GFR ( Amer) Est GFR (Non-Af Amer) BUN/Creatinine Ratio Glucose POC Glucose (mg/dL) 153 H Calcium Phosphorus Magnesium Ammonia 70 H Imaging: CXR 05/01 - small left basal infiltrate CT brain 05/03 - stable subdural hygromas Xray lumbar/thoracic spine - djd, mild scoliosis+ CXR 05/04 - improving left basal infiltrate/effusion Assessment: 74y M w/pmhx of HTN, Afib on Xarelto, DM2, Hypothyroidism, LV diastolic dysfunction, Gout, Chronic hypoxia on Home O2; admitted 04/29 after being found unresponsive, acute on chronic hypercapnic/hypoxic in ER and so was intubated. Found to have bilateral subdural hematomas, reversed Xarelto with Kcentra, but Neurosurgery suspected chronic hygromas, no surgical intervention suspected. Poor compliance with medications, history of confusion for months. Suspected COPD exacerbation with MSSA left lower lobe pneumonia as etiology. Extubated 05/02. Has been having intermittent restlessness and agitation since extubation, consistent with delirium, multifactorial. Headaches+ 05/03. 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 -Xray of lumbar/thoracic spines with no overt fracture noted; neurosurg followup -Delirium prec CVS- -Afib, tachy; cont coreg 50mg bid -holding off AC due to falls/bleeding/subdurals -hypertension; cont imdur 30mg daily, incr lisinopril to 40mg po daily ; hydralazine prn -CHF; lasix 20mg po daily -Maintain MAP>65 Resp- -weaned to NC 5 L now; will need to continue home oxygen on discharge -cont nocturnal NIV for JANN -no active wheezing; dec to solumedrol 40mg iv daily tonight, start tapering -cont duoneb q6h rtc -IV abx for MSSA pneumonia -Wean Fio2 to keep sat>92% -Bronchodilators PRN, Aspiration prec ID- afebrile, wbc normal -sputum culture with MSSA+ -CXR last with left lower lobe infiltrate+ -Cont CTX 1gm iv daily for MSSA pneumonia (day 4 of 5) GI- -Bedside swallow eval passed -still evidence of couging on liquids when he drinks fast -diabetic diet with nectar thick liquids -history of coughing as per famliy when he eats and bouts of it; will have speech/swallow consult see patient today -GI prophylaxis - h2b Renal- -hematuria yesterday but resolved now; carter in place -will consider d/c carter tomorrow/today -strict I/O, replete to keep K>4, Mg>2 -carter as indicated Heme- hg stable -off AC due to subdurals and history of falls Endo-Maintain BG<200, insulin protocol as needed; on metformin 1gm bid. -cont synthroid 50mcg po daily Musculsk- pressure ulcer prophylaxis. oob to chair Wounds- none Nutrition- diabetic diet, mech soft with nectar thick DVT prophylaxis: SCDs; off AC due to falls in past GI prophylaxis: h2b Central Line: no Arterial Line: no Carter Cathetor: yes Disposition: Patient requires Critical Care/ICU for respiratory failure, delirium, pneumonia ; will consider floor transfer next 24 hours Patient clinical status: stable Code Status: full code Karson Brian MD Ortho Tech (Electronically Signed)
[2019-05-04] MEDS: QUEtiapine TAB* 25 MG PO SCH (12:19)
[2019-05-04] MEDS: cefTRIAXone(*) 1 GM in NS 0.9% 50 ML* 50 ML IVPB SCH (12:21)
[2019-05-04] MEDS ORDERED: QUEtiapine TAB* 25 MG PO SCH (13:00)
[2019-05-04] MEDS ORDERED: Diltiazem IV push/loading dose 5 MG/ML 5 ML vial (25 mg) IV SLOW PU ONE (13:59)
[2019-05-04] MEDS: Haloperidol INJ IV/IM* 5 MG/ML AMP IV SLOW PU PRN ×2 (14:17→19:03)
[2019-05-04] MEDS ORDERED: Dextrose 50% VIAL 50 ml IV PUSH PRN (16:23)
[2019-05-04] MEDS: Insulin LISPRO* 1 UNITS UNIT SUBCUT SCH ×2 (16:45→22:25)
--- NOTE | 2019-05-04 17:36 | PN ---
Progress Note - Progress Note Date of Service: 05/04/19 Note: Reviewed imaging of thoracic and lumbar spine, there does not appear to be any acute injury. Patient condition has improved, he is more alert and follows commands. He is alert to place but still confused to date and time. At this time no surgical intervention is needed, neurosurgery will still be available if needed.
[2019-05-04] MEDS ORDERED: Lorazepam PYXIS KEY PRN (19:13)
[2019-05-04] MEDS ORDERED: LORazepam INJ* 2 MG/ML 1 ML VIAL IV PUSH ONE (19:13)
[2019-05-05] MEDS: Albuterol/Ipratropium NEB.SOL* Albuterol 2.5 MG/Ipratropium 0.5 MG 3 ML INH SCH ×3 (01:31→12:50)
[2019-05-05] MEDS: hydrALAZINE IV* 20 MG/ML VIAL IV SLOW PU PRN (05:06)
[2019-05-05 05:23] LABS: Hematocrit 40 % (42-52); Hemoglobin 13.3 g/dL (14.0-18.0); Mean Corpuscular HGB Conc 33 g/dL (31-36); Mean Corpuscular Hemoglobin 28 pg (27-31); Mean Corpuscular Volume 86 fL (80-94); Platelet Count 256 10^3/uL (150-450); Red Blood Count 4.72 10^6 /uL (4.18-5.48); Red Cell Distribution Width 14 % (10-15); White Blood Count 6.1 10^3/uL (3.5-10.8)
[2019-05-05 05:44] LABS: BUN/Creatinine Ratio 39.4 (8-20); Calcium 9.1 mg/dL (8.6-10.3); EGFR Non-African American 109.1 (>60); Magnesium 1.9 mg/dL (1.9-2.7); Phosphorus 3.6 mg/dL (2.5-5.0); Potassium 4.8 mmol/L (3.5-5.0)
[2019-05-05] MEDS: Insulin LISPRO* 1 UNITS UNIT SUBCUT SCH ×4 (09:41→21:02)
[2019-05-05] MEDS: Levothyroxine TAB* 50 MCG TAB PO SCH (09:51)
[2019-05-05] MEDS: Lisinopril TAB* 10 MG PO SCH (09:51)
[2019-05-05] MEDS: Famotidine SUSP ORALSYR 8 MG/ML PO SCH ×2 (09:52→21:05)
[2019-05-05] MEDS: Isosorbide Mononitrate ER TAB* 30 MG PO SCH (09:52)
[2019-05-05] MEDS: Carvedilol TAB* 25 MG PO SCH ×2 (09:52→21:02)
[2019-05-05] MEDS: Furosemide TAB* 20 MG PO SCH (09:52)
[2019-05-05] MEDS: metFORMIN* 1,000 MG TAB PO SCH ×2 (09:52→21:02)
[2019-05-05] MEDS: QUEtiapine TAB* 25 MG PO SCH ×2 (09:53→15:35)
[2019-05-05] MEDS: Nystatin CREAM* 15 GM TUBE TOPICAL SCH ×2 (09:54→21:06)
[2019-05-05] MEDS ORDERED: Diltiazem TAB* 30 MG PO SCH (12:00)
[2019-05-05] MEDS: cefTRIAXone(*) 1 GM in NS 0.9% 50 ML* 50 ML IVPB SCH (12:20)
[2019-05-05] MEDS: Magnesium Oxide TAB* 400 MG PO SCH ×2 (12:59→21:02)
--- NOTE | 2019-05-05 14:58 | PN ---
Progress Note - Progress Note Date of Service: 05/05/19 Note: Progress Note -- Critical Care 24 hour events/significant events: -yesterday was alert in daytime, then sun-downing and delirium set in in evening , given ativan and haldol to calm down -NIV overnight -this morning awake, alert, slighty confusion at times, but calm -on NC 5 L -Afib, rate 100-120s Tele: afib, tachy Vitals: Vital Signs Temp 98.9 F 05/05/19 11:06 Pulse 120 05/05/19 12:50 Resp 16 05/05/19 14:00 BP 113/79 05/05/19 13:01 Pulse Ox 97 05/05/19 11:00 Intake & Output 05/04/19 05/05/19 05/05/19 18:59 06:59 18:59 Intake Total 650 911 Output Total 705 899 185 Balance -55 -899 726 Weight 120.4 kg Intake: IV Fluids 61 NS 61 Oral 650 850 Output: Urine 110 Carter 705 899 75 Other: Estimated Void Medium # Bowel Movements 2 Estimated Stool Amount Large Medium O2/Vent: NC 5 L Infusions: heplock Medications: Acetaminophen (Tylenol Tab*) 650 mg PO Q6H PRN PRN Reason: PAIN - MILD Last Admin: 05/03/19 10:59 Dose: 650 mg Albuterol/Ipratropium (Duoneb (Albuterol 2.5 Mg/Ipratropium 0.5 Mg)) 1 neb INH [id number] AWAKE [facility] Last Admin: 05/05/19 12:50 Dose: 1 neb Carvedilol (Coreg Tab*) 50 mg PO BID [facility] Last Admin: 05/05/19 09:52 Dose: 50 mg Dextrose (Dextrose 50% Vial 50 Ml*) 25 ml IV PUSH .FOR FS < 60 - SS PRN PRN Reason: FS < 60 Diltiazem HCl (Cardizem Tab*) 30 mg PO Q6HR [facility] Last Admin: 05/05/19 12:35 Dose: 30 mg Famotidine (Pepcid Susp 8mg/Ml) 20 mg PO BID [facility] Last Admin: 05/05/19 09:52 Dose: 20 mg Furosemide (Lasix Tab*) 20 mg PO DAILY [facility] Last Admin: 05/05/19 09:52 Dose: 20 mg Haloperidol Lactate (Haldol Inj Iv/Im*) 5 mg IV SLOW PU Q4H PRN PRN Reason: AGITATION Last Admin: 05/04/19 19:03 Dose: 5 mg Hydralazine HCl (Apresoline Iv*) 10 mg IV SLOW PU Q6H PRN PRN Reason: BLOOD PRESSURE Last Admin: 05/05/19 05:06 Dose: 10 mg Ceftriaxone Sodium 1 gm/ (Sodium Chloride) 50 mls @ 200 mls/hr IVPB Q24H [facility] Stop: 05/06/19 11:59 Last Admin: 05/05/19 12:20 Dose: 200 mls/hr Insulin Human Lispro (Humalog*) 0 units SUBCUT ACHS [facility]; Protocol Last Admin: 05/05/19 12:59 Dose: 3 unit Isosorbide Mononitrate (Imdur Er Tab*) 30 mg PO DAILY [facility] Last Admin: 05/05/19 09:52 Dose: 30 mg Levothyroxine Sodium (Synthroid Tab*) 50 mcg PO DAILY [facility] Last Admin: 05/05/19 09:51 Dose: 50 mcg Lisinopril (Prinivil Tab*) 40 mg PO DAILY [facility] Last Admin: 05/05/19 09:51 Dose: 40 mg Lorazepam (Ativan Inj*) 1 mg IV PUSH Q4H PRN PRN Reason: for severe agitation Magnesium Oxide (Magox 400 Tab*) 400 mg PO BID [facility] Stop: 05/06/19 21:01 Last Admin: 05/05/19 12:59 Dose: 400 mg Metformin HCl (Glucophage*) 1,000 mg PO BID [facility] Last Admin: 05/05/19 09:52 Dose: 1,000 mg Methylprednisolone Sodium Succinate (Solu-Medrol 125mg *) 40 mg IV Q24H [facility] Last Admin: 05/04/19 22:24 Dose: 40 mg Miscellaneous (Ativan Pyxis Ellis) 1 ea N/A .ATIVAN IV ELLIS PRN PRN Reason: PYXIS ELLIS Nystatin (Nystatin Cream*) 1 applic TOPICAL BID [facility] Last Admin: 05/05/19 09:54 Dose: 1 applic Quetiapine Fumarate (Seroquel Tab*) 25 mg PO Q24H [facility] Physical Exam: Constitutional: awake, alert, no distress, no diaphoresis Head: normocephalic, atraumatic Eyes: no pallor, no icterus ENT: moist mucous membranes Neck: soft, supple, no jvd, no stridor CVS: tachy, irregular, no murmur Chest/Resp: bilateral air entry, distant breath sounds+, no rhales, no wheeze, no rhonchi, no acc muscle use Abdomen/GI: soft, nontender, nondistended, BS+ Ext/Msk: warm, pulses+, no edema Skin: intact, warm Neuro: awake, alert, mild confusion at times, orientedx3, moving all extremities , no gross focal deficit Psych: normal affect Labs: Laboratory Results - last 24 hr 05/04/19 05/05/19 05/05/19 21:56 05:05 05:05 WBC 6.1 RBC 4.72 Hgb 13.3 L Hct 40 L MCV 86 MCH 28 MCHC 33 RDW 14 Plt Count 256 MPV 8.0 Sodium 138 Potassium 4.8 Chloride 100 L Carbon Dioxide 34 H Anion Gap 4 BUN 28 H Creatinine 0.71 Est GFR ( Amer) 132.0 Est GFR (Non-Af Amer) 109.1 BUN/Creatinine Ratio 39.4 H Glucose 166 H POC Glucose (mg/dL) 145 H Calcium 9.1 Phosphorus 3.6 Magnesium 1.9 05/05/19 12:26 WBC RBC Hgb Hct MCV MCH MCHC RDW Plt Count MPV Sodium Potassium Chloride Carbon Dioxide Anion Gap BUN Creatinine Est GFR ( Amer) Est GFR (Non-Af Amer) BUN/Creatinine Ratio Glucose POC Glucose (mg/dL) 194 H Calcium Phosphorus Magnesium Imaging: CXR 05/01 - small left basal infiltrate CT brain 05/03 - stable subdural hygromas Xray lumbar/thoracic spine - djd, mild scoliosis+ CXR 05/04 - improving left basal infiltrate/effusion Assessment: 74y M w/pmhx of HTN, Afib on Xarelto, DM2, Hypothyroidism, LV diastolic dysfunction, Gout, Chronic hypoxia on Home O2; admitted 04/29 after being found unresponsive, acute on chronic hypercapnic/hypoxic in ER and so was intubated. Found to have bilateral subdural hematomas, reversed Xarelto with Kcentra, but Neurosurgery suspected chronic hygromas, no surgical intervention suspected. Poor compliance with medications, history of confusion for months. Suspected COPD exacerbation with MSSA left lower lobe pneumonia as etiology. Extubated 05/02. Has been having intermittent restlessness and agitation since extubation, consistent with delirium, multifactorial. Headaches+ 05/03. 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 -Xray of lumbar/thoracic spines with no overt fracture noted; neurosurg followup -Delirium prec CVS- -Afib, tachy; cont coreg 50mg bid; add cardizem 30mg po q6h for rate control, increase as tolerated -holding off AC due to falls/bleeding/subdurals -hypertension, controlled; cont imdur 30mg daily, lisinopril to 40mg po daily ; hydralazine prn -CHF, stable; lasix 20mg po daily -Maintain MAP>65 Resp- - NC 5 L ; will need to continue home oxygen on discharge -cont nocturnal NIV for JANN -no active wheezing; on solumedrol 40mg iv daily, further taper 05/07 onwards to PO prednisone -cont duoneb q6h rtc -IV abx for MSSA pneumonia (complete 05/05) -Wean Fio2 to keep sat>92% -Bronchodilators PRN, Aspiration prec ID- afebrile, wbc normal -sputum culture with MSSA+ -CXR last with left lower lobe infiltrate+ -Cont CTX 1gm iv daily for MSSA pneumonia (day 5 of 5) GI- -Bedside swallow eval passed -still evidence of couging on liquids when he drinks fast -diabetic diet with nectar thick liquids -history of coughing as per famliy when he eats and bouts of it; will have speech/swallow consult see patient today -GI prophylaxis - h2b Renal- -hematuria resolved -d/c carter -strict I/O, replete to keep K>4, Mg>2 -carter as indicated Heme- hg stable -off AC due to subdurals and history of falls Endo-Maintain BG<200, insulin protocol as needed; on metformin 1gm bid. -cont synthroid 50mcg po daily Musculsk- pressure ulcer prophylaxis. oob to chair, pt/ot Wounds- none Nutrition- diabetic diet, mech soft with nectar thick DVT prophylaxis: SCDs; off AC due to falls in past GI prophylaxis: h2b Central Line: no Arterial Line: no Carter Cathetor: yes, d/c 05/05 Disposition: respiratoyr status stable now, improved on NC; has some delirium/ sun-downing, will observe and likely transfer if stable in evening and not requiring a lot of IV meds. Patient clinical status: stable Code Status: full code Karson Brian MD [employer] (Electronically Signed)
[2019-05-05] MEDS: LORazepam INJ* 2 MG/ML 1 ML VIAL IV PUSH PRN ×2 (17:19→22:45)
[2019-05-05] MEDS: Diltiazem TAB* 60 MG PO SCH ×2 (18:24→23:48)
[2019-05-05] MEDS: methylPREDNISolone 125 MG* 2 ML VIAL IV SCH (21:07)
[2019-05-05] MEDS: Haloperidol INJ IV/IM* 5 MG/ML AMP IV SLOW PU PRN (23:48)
[2019-05-06 05:27] LABS: Hematocrit 41 % (42-52); Hemoglobin 13.3 g/dL (14.0-18.0); Mean Corpuscular HGB Conc 33 g/dL (31-36); Mean Corpuscular Hemoglobin 28 pg (27-31); Mean Corpuscular Volume 87 fL (80-94); Mean Platelet Volume 7.8 fL (7.4-10.4); Platelet Count 262 10^3/uL (150-450); Red Cell Distribution Width 14 % (10-15); White Blood Count 8.4 10^3/uL (3.5-10.8)
[2019-05-06 05:43] LABS: BUN/Creatinine Ratio 46.7 (8-20); Calcium 9.8 mg/dL (8.6-10.3); EGFR African American 123.9 (>60); EGFR Non-African American 102.4 (>60); Magnesium 1.7 mg/dL (1.9-2.7); Phosphorus 4.6 mg/dL (2.5-5.0)
[2019-05-06 05:53] LABS: Potassium 5.2 mmol/L (3.5-5.0)
[2019-05-06] MEDS: Diltiazem TAB* 60 MG PO SCH ×3 (06:33→17:05)
[2019-05-06] MEDS: Insulin LISPRO* 1 UNITS UNIT SUBCUT SCH ×4 (09:24→20:52)
[2019-05-06] MEDS: Isosorbide Mononitrate ER TAB* 30 MG PO SCH (09:26)
[2019-05-06] MEDS: metFORMIN* 1,000 MG TAB PO SCH ×2 (09:27→20:25)
[2019-05-06] MEDS: Magnesium Oxide TAB* 400 MG PO SCH ×2 (09:27→20:17)
[2019-05-06] MEDS: Furosemide TAB* 20 MG PO SCH (09:27)
[2019-05-06] MEDS: Lisinopril TAB* 10 MG PO SCH (09:27)
[2019-05-06] MEDS: Levothyroxine TAB* 50 MCG TAB PO SCH (09:29)
[2019-05-06] MEDS: Famotidine SUSP ORALSYR 8 MG/ML PO SCH ×2 (09:36→20:17)
[2019-05-06] MEDS: Carvedilol TAB* 25 MG PO SCH ×2 (09:37→20:29)
[2019-05-06] MEDS: Nystatin CREAM* 15 GM TUBE TOPICAL SCH ×2 (09:40→20:27)
[2019-05-06] MEDS: Albuterol/Ipratropium NEB.SOL* Albuterol 2.5 MG/Ipratropium 0.5 MG 3 ML INH PRN ×2 (11:03→23:52)
--- NOTE | 2019-05-06 11:23 | PN ---
Subjective Date of Service: 05/06/19 Interval History: Pt feels well, although has been using abd muscles to breath all morning. C/o no increased SOB, denies CP Used BIPAP at night, has no BIPAP at home At home on 3L 02, but not compliant Objective Active Medications: Acetaminophen (Tylenol Tab*) 650 mg PO Q6H PRN PRN Reason: PAIN - MILD Last Admin: 05/03/19 10:59 Dose: 650 mg Albuterol/Ipratropium (Duoneb (Albuterol 2.5 Mg/Ipratropium 0.5 Mg)) 1 neb INH [id number] AWAKE PRN PRN Reason: change in order Last Admin: 05/06/19 11:03 Dose: 1 neb Carvedilol (Coreg Tab*) 50 mg PO BID [facility] Last Admin: 05/06/19 09:37 Dose: 50 mg Dextrose (Dextrose 50% Vial 50 Ml*) 25 ml IV PUSH .FOR FS < 60 - SS PRN PRN Reason: FS < 60 Diltiazem HCl (Cardizem Tab*) 60 mg PO Q6HR [facility] Last Admin: 05/06/19 06:33 Dose: 60 mg Famotidine (Pepcid Susp 8mg/Ml) 20 mg PO BID [facility] Last Admin: 05/06/19 09:36 Dose: 20 mg Furosemide (Lasix Tab*) 20 mg PO DAILY [facility] Last Admin: 05/06/19 09:27 Dose: 20 mg Haloperidol Lactate (Haldol Inj Iv/Im*) 5 mg IV SLOW PU Q4H PRN PRN Reason: AGITATION Last Admin: 05/05/19 23:48 Dose: 5 mg Hydralazine HCl (Apresoline Iv*) 10 mg IV SLOW PU Q6H PRN PRN Reason: BLOOD PRESSURE Last Admin: 05/05/19 05:06 Dose: 10 mg Insulin Human Lispro (Humalog*) 0 units SUBCUT ACHS [facility]; Protocol Last Admin: 05/06/19 09:24 Dose: 3 unit Isosorbide Mononitrate (Imdur Er Tab*) 30 mg PO DAILY [facility] Last Admin: 05/06/19 09:26 Dose: 30 mg Levothyroxine Sodium (Synthroid Tab*) 50 mcg PO DAILY [facility] Last Admin: 05/06/19 09:29 Dose: 50 mcg Lisinopril (Prinivil Tab*) 40 mg PO DAILY [facility] Last Admin: 05/06/19 09:27 Dose: 40 mg Lorazepam (Ativan Inj*) 1 mg IV PUSH Q4H PRN PRN Reason: for severe agitation Last Admin: 05/05/19 22:45 Dose: 1 mg Magnesium Oxide (Magox 400 Tab*) 400 mg PO BID [facility] Stop: 05/06/19 21:01 Last Admin: 05/06/19 09:27 Dose: 400 mg Metformin HCl (Glucophage*) 1,000 mg PO BID [facility] Last Admin: 05/06/19 09:27 Dose: 1,000 mg Methylprednisolone Sodium Succinate (Solu-Medrol 125mg *) 40 mg IV Q24H [facility] Last Admin: 05/05/19 21:07 Dose: 40 mg Miscellaneous (Ativan Pyxis Rodriguez) 1 ea N/A .ATIVAN IV RODRIGUEZ PRN PRN Reason: PYXIS RODRIGUEZ Nystatin (Nystatin Cream*) 1 applic TOPICAL BID [facility] Last Admin: 05/06/19 09:40 Dose: 1 applic Quetiapine Fumarate (Seroquel Tab*) 25 mg PO Q24H [facility] Last Admin: 05/05/19 15:35 Dose: 25 mg Vital Signs - 8 hr 05/06/19 05/06/19 05/06/19 04:00 05:00 05:03 Pulse Rate 90 92 100 Respiratory 13 30 19 Rate Blood Pressure 140/90 166/114 (mmHg) O2 Sat by Pulse 92 90 90 Oximetry 05/06/19 05/06/19 05/06/19 05:44 06:00 07:00 Pulse Rate 96 94 91 Respiratory 16 13 14 Rate Blood Pressure 146/105 146/110 159/98 (mmHg) O2 Sat by Pulse 93 92 92 Oximetry 05/06/19 05/06/19 05/06/19 08:00 09:00 10:00 Pulse Rate 106 93 94 Respiratory 26 17 21 Rate Blood Pressure 153/109 (mmHg) O2 Sat by Pulse 94 93 92 Oximetry 05/06/19 11:04 Pulse Rate 92 Respiratory 18 Rate Blood Pressure (mmHg) O2 Sat by Pulse 91 Oximetry Oxygen Devices in Use Now: BiPAP Appearance: 74 yo M in NAD, AAOx3 Eyes: No Scleral Icterus, PERRLA Ears/Nose/Mouth/Throat: NL Teeth, Lips, Gums, Mucous Membranes Moist Neck: NL Appearance and Movements; NL JVP, Trachea Midline Respiratory: - - diffuse b/l upper lung wheezes, poor air entry to b/l lower lungs Cardiovascular: - - irregular, no murmur Abdominal: NL Sounds; No Tenderness; No Distention, No Hepatosplenomegaly Lymphatic: No Cervical Adenopathy Extremities: No Edema, No Clubbing, Cyanosis Skin: No Rash or Ulcers, No Nodules or Sclerosis Neurological: Alert and Oriented x 3, - - genereralized deconditioning Result Diagrams: 05/07/19 04:30 05/07/19 04:30 Microbiology and Other Data: Microbiology 05/01/19 10:55 Aerobic Blood Culture - Preliminary Blood Venous No Growth Day 4 Anaerobic Blood Culture - Preliminary No Growth Day 4 05/01/19 10:24 Aerobic Blood Culture - Preliminary Blood Venous No Growth Day 4 Anaerobic Blood Culture - Preliminary No Growth Day 4 04/29/19 13:25 Aerobic Blood Culture - Final Blood Venous No Growth Day 5 Anaerobic Blood Culture - Final No Growth Day 5 04/29/19 13:19 Aerobic Blood Culture - Final Blood Venous No Growth Day 5 Anaerobic Blood Culture - Final No Growth Day 5 05/04/19 09:41 Stool Occult Blood (BEATRIZ) - Final Stool 05/01/19 07:50 Gram Stain - Final Sputum Sputum Culture - Final Staphylococcus Aureus 04/29/19 13:50 Urine Culture - Final Urine No Growth (<1,000 CFU/mL) 04/29/19 15:27 Nasal Screen MRSA (PCR) - Final Nasal Mrsa Not Detected Assess/Plan/Problems-Billing Assessment: 74y M w/pmhx of HTN, Afib on Xarelto, DM2, Hypothyroidism, LV diastolic dysfunction, Gout, Chronic hypoxia on Home O2; admitted 04/29 after being found unresponsive, acute on chronic hypercapnic/hypoxic in ER and so was intubated. Found to have bilateral subdural hematomas, reversed Xarelto with Kcentra, but Neurosurgery suspected chronic hygromas, no surgical intervention suspected. Poor compliance with medications, history of confusion for months. Suspected COPD exacerbation with MSSA left lower lobe pneumonia as etiology. Extubated . Had intermittent restlessness and agitation after extubation - Patient Problems (1) Encephalopathy Comment: -fluctuating mental status in evenings; may be sun-downing; no other clear reason for delirium but he is on steroids, but stable hygromas, no further fevers/resp compromise but improving oxygenation -CT brain 05/03 with no new changes to chronic hygromas, -cont seroquel to 25mg po daily in evenings -prn haldol ; avoid bdz -history of falls in the past and forgetfullness; no history of dementia otherwise -Chronic subdurals, 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 -Xray of lumbar/thoracic spines with no overt fracture noted; neurosurg followup (2) Pneumonia Comment: sputum culture with MSSA+ -CXR last with left lower lobe infiltrate+ - CTX 1gm iv daily for MSSA pneumonia completed 5 days tx on 05/05/19 (3) COPD exacerbation Comment: NC 5 L ; will need to continue home oxygen on discharge -cont nocturnal NIV for JANN -cont solumedrol 40mg iv daily -cont duoneb q6h rtc -IV abx for MSSA pneumonia (complete 05/05) -Wean Fio2 to keep sat>92% -Bronchodilators PRN, Aspiration prec (4) JANN (obstructive sleep apnea) Comment: Has BIPAP at home, but is not using it (5) Heme + stool Comment: Sample obtained in ICU, no noted h/o melena or BRBPR. Hb stable, so no need for urgent GI eval. Needs outpatient colonoscopy (6) Atrial fibrillation Comment: chronic, anicoagulation stopped due to SDH cont Cardizem , Coreg Rate controled EF 60-65%, no sig valve abn on Echo (7) DVT prophylaxis Comment: SCD's, no anticoagulation due to SDH
[2019-05-06] MEDS ORDERED: Ondansetron INJ* 2 MG/ML VIAL IV PRN (12:14)
[2019-05-06] MEDS ORDERED: Magnesium Sulfate 2 GM IV* 2 GM/50 ML BAG IVPB ONE (12:35)
[2019-05-06] MEDS: QUEtiapine TAB* 25 MG PO SCH (15:49)
[2019-05-06] MEDS: methylPREDNISolone 125 MG* 2 ML VIAL IV SCH (20:57)
[2019-05-07] MEDS: Diltiazem TAB* 60 MG PO SCH ×4 (01:02→17:46)
[2019-05-07 04:58] LABS: Magnesium 1.8 mg/dL (1.9-2.7)
[2019-05-07] MEDS ORDERED: Magnesium Sulfate 2 GM IV* 2 GM/50 ML BAG IVPB ONE (08:46)
[2019-05-07 09:07] LABS: BUN/Creatinine Ratio 46.4 (8-20); Calcium 9.9 mg/dL (8.6-10.3); EGFR African American 136.4 (>60); EGFR Non-African American 112.7 (>60)
[2019-05-07 09:09] LABS: ABS Lymphocytes 0.4 10^3/ul (1.0-4.8); ABS Monocytes 0.3 10^3/ul (0-0.8); ABS Neutrophils 7.3 10^3/ul (1.5-7.7); Eosinophil % 0.1 %; Hematocrit 41 % (42-52); Hemoglobin 13.5 g/dL (14.0-18.0); Lymphocyte % 4.9 %; Mean Corpuscular HGB Conc 33 g/dL (31-36); Mean Corpuscular Hemoglobin 29 pg (27-31); Mean Corpuscular Volume 87 fL (80-94); Mean Platelet Volume 8.4 fL (7.4-10.4); Nucleated Red Blood Cells % 0.1; Platelet Count 253 10^3/uL (150-450); Red Blood Count 4.74 10^6 /uL (4.18-5.48); Red Cell Distribution Width 14 % (10-15)
[2019-05-07] MEDS: Famotidine SUSP ORALSYR 8 MG/ML PO SCH ×2 (09:11→21:53)
[2019-05-07 09:12] LABS: Potassium 5.4 mmol/L (3.5-5.0)
[2019-05-07] MEDS: Carvedilol TAB* 25 MG PO SCH ×2 (09:12→21:56)
[2019-05-07] MEDS: Lisinopril TAB* 10 MG PO SCH (09:12)
[2019-05-07] MEDS: Levothyroxine TAB* 50 MCG TAB PO SCH (09:13)
[2019-05-07] MEDS: metFORMIN* 1,000 MG TAB PO SCH ×2 (09:13→20:44)
[2019-05-07] MEDS: Furosemide TAB* 20 MG PO SCH (09:13)
[2019-05-07] MEDS: Isosorbide Mononitrate ER TAB* 30 MG PO SCH (09:13)
[2019-05-07] MEDS: Insulin LISPRO* 1 UNITS UNIT SUBCUT SCH ×4 (09:34→20:44)
[2019-05-07] MEDS: Nystatin CREAM* 15 GM TUBE TOPICAL SCH ×2 (10:10→21:57)
--- NOTE | 2019-05-07 10:48 | PN ---
Subjective Date of Service: 05/07/19 Interval History: Pt is seen today accompanied by two brothers. Feels much better today. Yesterday he vomited after breakfast and the required BIPAP most of the day Objective Active Medications: Acetaminophen (Tylenol Tab*) 650 mg PO Q6H PRN PRN Reason: PAIN - MILD Last Admin: 05/03/19 10:59 Dose: 650 mg Albuterol/Ipratropium (Duoneb (Albuterol 2.5 Mg/Ipratropium 0.5 Mg)) 1 neb INH [id number] AWAKE PRN PRN Reason: change in order Last Admin: 05/06/19 23:52 Dose: 1 neb Atorvastatin Calcium (Lipitor*) 10 mg PO DAILY [facility] Carvedilol (Coreg Tab*) 50 mg PO BID [facility] Last Admin: 05/07/19 09:12 Dose: 50 mg Dextrose (Dextrose 50% Vial 50 Ml*) 25 ml IV PUSH .FOR FS < 60 - SS PRN PRN Reason: FS < 60 Diltiazem HCl (Cardizem Tab*) 60 mg PO Q6HR [facility] Stop: 05/07/19 23:59 Last Admin: 05/07/19 06:14 Dose: 60 mg Diltiazem HCl (Cardizem Cd Cap*) 240 mg PO DAILY [facility] Famotidine (Pepcid Susp 8mg/Ml) 20 mg PO BID [facility] Last Admin: 05/07/19 09:11 Dose: 20 mg Folic Acid (Folvite Tab*) 1 mg PO DAILY [facility] Furosemide (Lasix Tab*) 20 mg PO DAILY [facility] Last Admin: 05/07/19 09:13 Dose: 20 mg Haloperidol Lactate (Haldol Inj Iv/Im*) 5 mg IV SLOW PU Q4H PRN PRN Reason: AGITATION Last Admin: 05/05/19 23:48 Dose: 5 mg Hydralazine HCl (Apresoline Iv*) 10 mg IV SLOW PU Q6H PRN PRN Reason: BLOOD PRESSURE Last Admin: 05/05/19 05:06 Dose: 10 mg Insulin Human Lispro (Humalog*) 0 units SUBCUT ACHS [facility]; Protocol Last Admin: 05/07/19 09:34 Dose: 3 unit Isosorbide Mononitrate (Imdur Er Tab*) 30 mg PO DAILY [facility] Last Admin: 05/07/19 09:13 Dose: 30 mg Levothyroxine Sodium (Synthroid Tab*) 50 mcg PO DAILY [facility] Last Admin: 05/07/19 09:13 Dose: 50 mcg Lorazepam (Ativan Inj*) 1 mg IV PUSH Q4H PRN PRN Reason: for severe agitation Last Admin: 05/05/19 22:45 Dose: 1 mg Metformin HCl (Glucophage*) 1,000 mg PO BID [facility] Last Admin: 05/07/19 09:13 Dose: 1,000 mg Methylprednisolone Sodium Succinate (Solu-Medrol 125mg *) 40 mg IV Q24H [facility] Last Admin: 05/06/19 20:57 Dose: 40 mg Miscellaneous (Ativan Pyxis Rodriguez) 1 ea N/A .ATIVAN IV RODRIGUEZ PRN PRN Reason: PYXIS RODRIGUEZ Nystatin (Nystatin Cream*) 1 applic TOPICAL BID [facility] Last Admin: 05/06/19 20:27 Dose: 1 applic Patiromer (Veltassa Powder*) 8.4 gm PO DAILY [facility] Stop: 05/07/19 23:59 Quetiapine Fumarate (Seroquel Tab*) 25 mg PO Q24H [facility] Last Admin: 05/06/19 15:49 Dose: 25 mg Vital Signs - 8 hr 05/07/19 05/07/19 05/07/19 03:00 04:00 04:54 Temperature 97.3 F Pulse Rate 91 94 Respiratory 16 13 16 Rate Blood Pressure 132/94 (mmHg) O2 Sat by Pulse 94 94 Oximetry 05/07/19 05/07/19 05/07/19 05:00 05:54 06:00 Temperature Pulse Rate 94 83 Respiratory 17 20 11 Rate Blood Pressure (mmHg) O2 Sat by Pulse 95 94 Oximetry 05/07/19 05/07/19 05/07/19 06:15 06:16 06:17 Temperature Pulse Rate 90 94 94 Respiratory 18 13 26 Rate Blood Pressure 155/104 150/118 165/87 (mmHg) O2 Sat by Pulse 90 90 91 Oximetry 05/07/19 05/07/19 05/07/19 07:00 08:00 08:30 Temperature Pulse Rate 93 95 93 Respiratory 15 11 17 Rate Blood Pressure 158/94 (mmHg) O2 Sat by Pulse 93 92 88 Oximetry 05/07/19 09:00 Temperature Pulse Rate 95 Respiratory 22 Rate Blood Pressure (mmHg) O2 Sat by Pulse 89 Oximetry Oxygen Devices in Use Now: Nasal Cannula Appearance: 74 yo m in nAD, aAOx3 Eyes: No Scleral Icterus, PERRLA Ears/Nose/Mouth/Throat: NL Teeth, Lips, Gums, Mucous Membranes Moist Neck: NL Appearance and Movements; NL JVP, Trachea Midline Respiratory: Symmetrical Chest Expansion and Respiratory Effort, - - scant rhonchi b/l upper lungs Cardiovascular: - - irregular Abdominal: NL Sounds; No Tenderness; No Distention, No Hepatosplenomegaly Lymphatic: No Cervical Adenopathy Extremities: No Edema, No Clubbing, Cyanosis Skin: No Nodules or Sclerosis Neurological: Alert and Oriented x 3, NL Muscle Strength and Tone Result Diagrams: 05/07/19 04:30 05/07/19 04:30 Microbiology and Other Data: Microbiology 05/01/19 10:55 Aerobic Blood Culture - Preliminary Blood Venous No Growth Day 4 Anaerobic Blood Culture - Preliminary No Growth Day 4 05/01/19 10:24 Aerobic Blood Culture - Preliminary Blood Venous No Growth Day 4 Anaerobic Blood Culture - Preliminary No Growth Day 4 04/29/19 13:25 Aerobic Blood Culture - Final Blood Venous No Growth Day 5 Anaerobic Blood Culture - Final No Growth Day 5 04/29/19 13:19 Aerobic Blood Culture - Final Blood Venous No Growth Day 5 Anaerobic Blood Culture - Final No Growth Day 5 05/04/19 09:41 Stool Occult Blood (BEATRIZ) - Final Stool 05/01/19 07:50 Gram Stain - Final Sputum Sputum Culture - Final Staphylococcus Aureus 04/29/19 13:50 Urine Culture - Final Urine No Growth (<1,000 CFU/mL) 04/29/19 15:27 Nasal Screen MRSA (PCR) - Final Nasal Mrsa Not Detected Assess/Plan/Problems-Billing Assessment: 74y M w/pmhx of HTN, Afib on Xarelto, DM2, Hypothyroidism, LV diastolic dysfunction, Gout, Chronic hypoxia on Home O2; admitted 04/29 after being found unresponsive, acute on chronic hypercapnic/hypoxic in ER and so was intubated. Found to have bilateral subdural hematomas, reversed Xarelto with Kcentra, but Neurosurgery suspected chronic hygromas, no surgical intervention suspected. Poor compliance with medications, history of confusion for months. Suspected COPD exacerbation with MSSA left lower lobe pneumonia as etiology. Extubated . Had intermittent restlessness and agitation after extubation - Patient Problems (1) Encephalopathy Comment: -fluctuating mental status in evenings; may be sun-downing; no other clear reason for delirium but he is on steroids, but stable hygromas, no further fevers/resp compromise but improving oxygenation -CT brain 05/03 with no new changes to chronic hygromas, -cont seroquel to 25mg po daily in evenings -prn haldol ; avoid bdz -history of falls in the past and forgetfullness; no history of dementia otherwise -Chronic subdurals, 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 -Xray of lumbar/thoracic spines with no overt fracture noted; neurosurg followup (2) Pneumonia Comment: sputum culture with MSSA+ -CXR last with left lower lobe infiltrate+ - CTX 1gm iv daily for MSSA pneumonia completed 5 days tx on 05/05/19 (3) COPD exacerbation Comment: NC 5 L ; will need to continue home oxygen on discharge -cont nocturnal NIV for JANN, but had been refusing -switch solumedrol 40mg to Prednisone PO -cont duoneb prn -IV abx for MSSA pneumonia (completed 05/05) -Wean Fio2 to keep sat>92% (4) JANN (obstructive sleep apnea) Comment: Has BIPAP at home, but is not using it (5) Heme + stool Comment: Sample obtained in ICU, no noted h/o melena or BRBPR. Hb stable, so no need for urgent GI eval. Needs outpatient colonoscopy PPI started (6) Atrial fibrillation Comment: chronic, anicoagulation stopped due to SDH cont Cardizem , Coreg Rate controled EF 60-65%, no sig valve abn on Echo (7) Hyperkalemia Comment: mild, will treat with Patiromer and d/c ACEI (8) DVT prophylaxis Comment: SCD's, no anticoagulation due to SDH Status and Disposition: inpatient, likely transfer out of ICU today
[2019-05-07] MEDS ORDERED: Isosorbide Mononitrate ER TAB* 30 MG PO ONE (10:53)
[2019-05-07] MEDS ORDERED: Patiromer POWDER* 8.4 GM PAK PO SCH (11:00)
[2019-05-07] MEDS: QUEtiapine TAB* 25 MG PO SCH (17:44)
[2019-05-08 05:51] LABS: Blood Urea Nitrogen 35 mg/dL (6-24); CO2 Carbon Dioxide 37 mmol/L (22-32); Chloride 98 mmol/L (101-111); EGFR African American 134.1 (>60); EGFR Non-African American 110.9 (>60); Glucose 119 mg/dL (70-100); Sodium 139 mmol/L (135-145)
[2019-05-08 06:13] LABS: ABS Monocytes 0.9 10^3/ul (0-0.8); ABS Neutrophils 5.7 10^3/ul (1.5-7.7); Eosinophil % 0.6 %; Hematocrit 41 % (42-52); Hemoglobin 12.9 g/dL (14.0-18.0); Lymphocyte % 13.3 %; Mean Corpuscular HGB Conc 32 g/dL (31-36); Mean Corpuscular Hemoglobin 28 pg (27-31); Mean Corpuscular Volume 87 fL (80-94); Mean Platelet Volume 7.8 fL (7.4-10.4); Platelet Count 205 10^3/uL (150-450); Red Blood Count 4.66 10^6 /uL (4.18-5.48); Red Cell Distribution Width 14 % (10-15); White Blood Count 7.7 10^3/uL (3.5-10.8)
[2019-05-08 06:25] LABS: Anion Gap 4 mmol/L (2-11)
[2019-05-08] MEDS: Insulin LISPRO* 1 UNITS UNIT SUBCUT SCH ×4 (08:09→22:15)
[2019-05-08] MEDS ORDERED: Diltiazem CD CAP* 240 MG PO SCH (09:00)
[2019-05-08] MEDS: metFORMIN* 1,000 MG TAB PO SCH ×2 (09:12→22:16)
[2019-05-08] MEDS: Levothyroxine TAB* 50 MCG TAB PO SCH (09:12)
[2019-05-08] MEDS: predniSONE TAB* 20 MG PO SCH (09:12)
[2019-05-08] MEDS: Atorvastatin* 10 MG TAB PO SCH (09:13)
[2019-05-08] MEDS: Isosorbide Mononitrate ER TAB* 60 MG PO SCH (09:13)
[2019-05-08] MEDS: Furosemide TAB* 20 MG PO SCH (09:13)
[2019-05-08] MEDS: Carvedilol TAB* 25 MG PO SCH ×2 (09:13→22:16)
[2019-05-08] MEDS: Magnesium Oxide TAB* 400 MG PO SCH (09:13)
[2019-05-08] MEDS: Pantoprazole TAB * 40 MG TAB PO SCH (09:13)
[2019-05-08] MEDS: Folic Acid TAB* 1 MG PO SCH (09:13)
[2019-05-08] MEDS: Nystatin CREAM* 15 GM TUBE TOPICAL SCH ×2 (09:14→22:21)
[2019-05-08] MEDS: Famotidine SUSP ORALSYR 8 MG/ML PO SCH (09:14)
[2019-05-08] MEDS: Albuterol/Ipratropium NEB.SOL* Albuterol 2.5 MG/Ipratropium 0.5 MG 3 ML INH PRN (10:01)
--- NOTE | 2019-05-08 11:27 | PN ---
Subjective Date of Service: 05/08/19 Interval History: As per d/w RN pt had mild confusion last night. today is seen with his brother in the room. Feels "OK" awaiting transfer to telem. Still SOB, requiring 5 L 02 NC. Objective Active Medications: Acetaminophen (Tylenol Tab*) 650 mg PO Q6H PRN PRN Reason: PAIN - MILD Last Admin: 05/03/19 10:59 Dose: 650 mg Albuterol/Ipratropium (Duoneb (Albuterol 2.5 Mg/Ipratropium 0.5 Mg)) 1 neb INH [id number] AWAKE PRN PRN Reason: change in order Last Admin: 05/08/19 10:01 Dose: 1 neb Atorvastatin Calcium (Lipitor*) 10 mg PO DAILY [facility] Last Admin: 05/08/19 09:13 Dose: 10 mg Carvedilol (Coreg Tab*) 50 mg PO BID [facility] Last Admin: 05/08/19 09:13 Dose: 50 mg Dextrose (Dextrose 50% Vial 50 Ml*) 25 ml IV PUSH .FOR FS < 60 - SS PRN PRN Reason: FS < 60 Diltiazem HCl (Cardizem Cd Cap*) 240 mg PO DAILY [facility] Last Admin: 05/08/19 09:12 Dose: 240 mg Famotidine (Pepcid Tab*) 20 mg PO BID [facility] Folic Acid (Folvite Tab*) 1 mg PO DAILY [facility] Last Admin: 05/08/19 09:13 Dose: 1 mg Furosemide (Lasix Tab*) 20 mg PO DAILY [facility] Last Admin: 05/08/19 09:13 Dose: 20 mg Haloperidol Lactate (Haldol Inj Iv/Im*) 5 mg IV SLOW PU Q4H PRN PRN Reason: AGITATION Last Admin: 05/05/19 23:48 Dose: 5 mg Hydralazine HCl (Apresoline Iv*) 10 mg IV SLOW PU Q6H PRN PRN Reason: BLOOD PRESSURE Last Admin: 05/05/19 05:06 Dose: 10 mg Insulin Human Lispro (Humalog*) 0 units SUBCUT ACHS [facility]; Protocol Last Admin: 05/08/19 08:09 Dose: Not Given Isosorbide Mononitrate (Imdur Er Tab*) 60 mg PO DAILY [facility] Last Admin: 05/08/19 09:13 Dose: 60 mg Levothyroxine Sodium (Synthroid Tab*) 50 mcg PO DAILY [facility] Last Admin: 05/08/19 09:12 Dose: 50 mcg Lorazepam (Ativan Inj*) 1 mg IV PUSH Q4H PRN PRN Reason: for severe agitation Last Admin: 05/05/19 22:45 Dose: 1 mg Magnesium Oxide (Magox 400 Tab*) 800 mg PO DAILY [facility] Last Admin: 05/08/19 09:13 Dose: 800 mg Metformin HCl (Glucophage*) 1,000 mg PO BID [facility] Last Admin: 05/08/19 09:12 Dose: 1,000 mg Miscellaneous (Ativan Pyxis Rodriguez) 1 ea N/A .ATIVAN IV RODRIGUEZ PRN PRN Reason: PYXIS RODRIGUEZ Nystatin (Nystatin Cream*) 1 applic TOPICAL BID [facility] Last Admin: 05/08/19 09:14 Dose: 1 applic Pantoprazole Sodium (Protonix Tab*) 40 mg PO DAILY [facility] Last Admin: 05/08/19 09:13 Dose: 40 mg Prednisone (Deltasone Tab*) 40 mg PO DAILY [facility] Last Admin: 05/08/19 09:12 Dose: 40 mg Quetiapine Fumarate (Seroquel Tab*) 25 mg PO Q24H [facility] Last Admin: 05/07/19 17:44 Dose: 25 mg Vital Signs - 8 hr 05/08/19 05/08/19 05/08/19 04:00 04:35 05:00 Temperature 98.1 F Pulse Rate 97 100 104 Respiratory 14 19 19 Rate Blood Pressure 151/110 137/101 (mmHg) O2 Sat by Pulse 100 98 99 Oximetry 05/08/19 05/08/19 05/08/19 05:17 05:29 05:32 Temperature Pulse Rate 100 97 Respiratory 16 14 16 Rate Blood Pressure 168/107 146/101 (mmHg) O2 Sat by Pulse 95 95 Oximetry 05/08/19 05/08/19 05/08/19 06:00 07:00 07:22 Temperature 97.5 F Pulse Rate 98 95 Respiratory 15 14 Rate Blood Pressure (mmHg) O2 Sat by Pulse 98 95 Oximetry 05/08/19 05/08/19 05/08/19 08:00 09:00 10:00 Temperature 98.9 F Pulse Rate 96 Respiratory 14 16 23 Rate Blood Pressure 151/111 (mmHg) O2 Sat by Pulse 99 Oximetry 05/08/19 10:01 Temperature Pulse Rate 112 Respiratory 20 Rate Blood Pressure (mmHg) O2 Sat by Pulse 99 Oximetry Oxygen Devices in Use Now: Nasal Cannula Appearance: 74 yo m in nAD, aAO3 Eyes: No Scleral Icterus, PERRLA Ears/Nose/Mouth/Throat: NL Teeth, Lips, Gums, Mucous Membranes Moist Neck: NL Appearance and Movements; NL JVP, Trachea Midline Respiratory: Symmetrical Chest Expansion and Respiratory Effort, - - diffuse wheezes b/l Cardiovascular: - - irregular Abdominal: NL Sounds; No Tenderness; No Distention, No Hepatosplenomegaly Lymphatic: No Cervical Adenopathy Extremities: - - toes purplle R>L, good pedal pulses b/l Skin: No Nodules or Sclerosis Neurological: Alert and Oriented x 3, NL Muscle Strength and Tone Result Diagrams: 05/08/19 06:06 05/08/19 06:15 Microbiology and Other Data: Microbiology 05/01/19 10:55 Aerobic Blood Culture - Preliminary Blood Venous No Growth Day 4 Anaerobic Blood Culture - Preliminary No Growth Day 4 05/01/19 10:24 Aerobic Blood Culture - Preliminary Blood Venous No Growth Day 4 Anaerobic Blood Culture - Preliminary No Growth Day 4 04/29/19 13:25 Aerobic Blood Culture - Final Blood Venous No Growth Day 5 Anaerobic Blood Culture - Final No Growth Day 5 04/29/19 13:19 Aerobic Blood Culture - Final Blood Venous No Growth Day 5 Anaerobic Blood Culture - Final No Growth Day 5 05/04/19 09:41 Stool Occult Blood (BEATRIZ) - Final Stool 05/01/19 07:50 Gram Stain - Final Sputum Sputum Culture - Final Staphylococcus Aureus 04/29/19 13:50 Urine Culture - Final Urine No Growth (<1,000 CFU/mL) 04/29/19 15:27 Nasal Screen MRSA (PCR) - Final Nasal Mrsa Not Detected Assess/Plan/Problems-Billing Assessment: 74y M w/pmhx of HTN, Afib on Xarelto, DM2, Hypothyroidism, LV diastolic dysfunction, Gout, Chronic hypoxia on Home O2; admitted 04/29 after being found unresponsive, acute on chronic hypercapnic/hypoxic in ER and so was intubated. Found to have bilateral subdural hematomas, reversed Xarelto with Kcentra, but Neurosurgery suspected chronic hygromas, no surgical intervention suspected. Poor compliance with medications, history of confusion for months. Suspected COPD exacerbation with MSSA left lower lobe pneumonia as etiology. Extubated . Had intermittent restlessness and agitation after extubation - Patient Problems (1) COPD exacerbation Comment: NC 5 L ; will need to continue home oxygen on discharge -cont nocturnal NIV for JANN, but had been refusing -switched solumedrol 40mg to Prednisone PO on 05/07/19 -cont duoneb but swithc to JAYY due to cont wheezes -IV abx for MSSA pneumonia (completed 05/05) -Wean Fio2 to keep sat>92% (2) Encephalopathy Comment: -fluctuating mental status in evenings; may be sun-downing; no other clear reason for delirium but he is on steroids, but stable hygromas, no further fevers/resp compromise but improving oxygenation -CT brain 05/03 with no new changes to chronic hygromas, -cont seroquel to 25mg po daily in evenings -prn haldol ; avoid bdz -history of falls in the past and forgetfullness; no history of dementia otherwise -Chronic subdurals, 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 -Xray of lumbar/thoracic spines with no overt fracture noted; neurosurg followup (3) Pneumonia Comment: sputum culture with MSSA+ -CXR last with left lower lobe infiltrate+ - CTX 1gm iv daily for MSSA pneumonia completed 5 days tx on 05/05/19 (4) JANN (obstructive sleep apnea) Comment: Has BIPAP at home, but is not using it (5) Heme + stool Comment: Sample obtained in ICU, no noted h/o melena or BRBPR. Hb stable, so no need for urgent GI eval. Needs outpatient colonoscopy PPI started (6) Atrial fibrillation Comment: chronic, anicoagulation stopped due to SDH cont Cardizem , Coreg Rate controled EF 60-65%, no sig valve abn on Echo (7) Hyperkalemia Comment: mild, treated with Patiromer and d/c ACEI on 05/07/19 (8) DM2 (diabetes mellitus, type 2) Comment: controlled on metformin and ISS (9) DVT prophylaxis Comment: SCD's, no anticoagulation due to SDH Status and Disposition: inpatient, likely transfer out of ICU today will need STR
[2019-05-08] MEDS: Albuterol/Ipratropium NEB.SOL* Albuterol 2.5 MG/Ipratropium 0.5 MG 3 ML INH SCH ×2 (13:03→19:39)
[2019-05-08] MEDS ORDERED: NS 0.9% 250 ML* 250 ML IV ONE ×2 (13:19→13:40)
[2019-05-08] MEDS: QUEtiapine TAB* 25 MG PO SCH (17:41)
[2019-05-08] MEDS: Haloperidol INJ IV/IM* 5 MG/ML AMP IV SLOW PU PRN (21:16)
[2019-05-08] MEDS: Famotidine TAB* 20 MG PO SCH (22:16)
[2019-05-09] MEDS: Albuterol/Ipratropium NEB.SOL* Albuterol 2.5 MG/Ipratropium 0.5 MG 3 ML INH SCH ×4 (03:54→20:26)
[2019-05-09] MEDS: Insulin LISPRO* 1 UNITS UNIT SUBCUT SCH ×4 (08:05→20:08)
[2019-05-09] MEDS: predniSONE TAB* 20 MG PO SCH (08:52)
[2019-05-09] MEDS: Famotidine TAB* 20 MG PO SCH ×2 (08:54→19:54)
[2019-05-09] MEDS: Atorvastatin* 10 MG TAB PO SCH (08:54)
[2019-05-09] MEDS: Folic Acid TAB* 1 MG PO SCH (08:54)
[2019-05-09] MEDS: Levothyroxine TAB* 50 MCG TAB PO SCH (08:54)
[2019-05-09] MEDS: Furosemide TAB* 20 MG PO SCH (08:54)
[2019-05-09] MEDS: metFORMIN* 1,000 MG TAB PO SCH ×2 (08:55→19:55)
[2019-05-09] MEDS: Magnesium Oxide TAB* 400 MG PO SCH (08:55)
[2019-05-09] MEDS: Diltiazem CD CAP* 120 MG PO SCH (08:55)
[2019-05-09] MEDS: Carvedilol TAB* 25 MG PO SCH ×2 (08:55→19:54)
[2019-05-09] MEDS: Isosorbide Mononitrate ER TAB* 60 MG PO SCH (08:56)
[2019-05-09] MEDS: Pantoprazole TAB * 40 MG TAB PO SCH (08:56)
--- NOTE | 2019-05-09 11:30 | PN ---
Subjective Date of Service: 05/09/19 Interval History: Pt still has problems with recalling recent events. Has no idea why he is here and what happened. he is surprised had had been here almost 10 days today he has no complaints. stated that he needs to talk with his family about STR Last night got agitated , needed Haldol and hit hid head. CT brain unchanged today. Pt Objective Active Medications: Acetaminophen (Tylenol Tab*) 650 mg PO Q6H PRN PRN Reason: PAIN - MILD Last Admin: 05/03/19 10:59 Dose: 650 mg Albuterol/Ipratropium (Duoneb (Albuterol 2.5 Mg/Ipratropium 0.5 Mg)) 1 neb INH [id number] AWAKE [facility] Last Admin: 05/09/19 07:22 Dose: 1 neb Atorvastatin Calcium (Lipitor*) 10 mg PO DAILY [facility] Last Admin: 05/09/19 08:54 Dose: 10 mg Carvedilol (Coreg Tab*) 50 mg PO BID [facility] Last Admin: 05/09/19 08:55 Dose: 50 mg Dextrose (Dextrose 50% Vial 50 Ml*) 25 ml IV PUSH .FOR FS < 60 - SS PRN PRN Reason: FS < 60 Diltiazem HCl (Cardizem Cd Cap*) 120 mg PO DAILY [facility] Last Admin: 05/09/19 08:55 Dose: 120 mg Famotidine (Pepcid Tab*) 20 mg PO BID [facility] Last Admin: 05/09/19 08:54 Dose: 20 mg Folic Acid (Folvite Tab*) 1 mg PO DAILY [facility] Last Admin: 05/09/19 08:54 Dose: 1 mg Furosemide (Lasix Tab*) 20 mg PO DAILY [facility] Last Admin: 05/09/19 08:54 Dose: 20 mg Haloperidol Lactate (Haldol Inj Iv/Im*) 5 mg IV SLOW PU Q4H PRN PRN Reason: AGITATION Last Admin: 05/08/19 21:16 Dose: 5 mg Hydralazine HCl (Apresoline Iv*) 10 mg IV SLOW PU Q6H PRN PRN Reason: BLOOD PRESSURE Last Admin: 05/05/19 05:06 Dose: 10 mg Insulin Human Lispro (Humalog*) 0 units SUBCUT ACHS [facility]; Protocol Last Admin: 05/09/19 08:05 Dose: Not Given Isosorbide Mononitrate (Imdur Er Tab*) 60 mg PO DAILY [facility] Last Admin: 05/09/19 08:56 Dose: 60 mg Levothyroxine Sodium (Synthroid Tab*) 50 mcg PO DAILY [facility] Last Admin: 05/09/19 08:54 Dose: 50 mcg Lorazepam (Ativan Inj*) 1 mg IV PUSH Q4H PRN PRN Reason: for severe agitation Last Admin: 05/05/19 22:45 Dose: 1 mg Magnesium Oxide (Magox 400 Tab*) 800 mg PO DAILY [facility] Last Admin: 05/09/19 08:55 Dose: 800 mg Metformin HCl (Glucophage*) 1,000 mg PO BID [facility] Last Admin: 05/09/19 08:55 Dose: 1,000 mg Miscellaneous (Ativan Pyxis Rodriguez) 1 ea N/A .ATIVAN IV RODRIGUEZ PRN PRN Reason: PYXIS RODRIGUEZ Nystatin (Nystatin Cream*) 1 applic TOPICAL BID [facility] Last Admin: 05/08/19 22:21 Dose: 1 applic Pantoprazole Sodium (Protonix Tab*) 40 mg PO DAILY [facility] Last Admin: 05/09/19 08:56 Dose: 40 mg Prednisone (Deltasone Tab*) 40 mg PO DAILY [facility] Last Admin: 05/09/19 08:52 Dose: 40 mg Quetiapine Fumarate (Seroquel Tab*) 25 mg PO Q24H [facility] Last Admin: 05/08/19 17:41 Dose: 25 mg Vital Signs - 8 hr 05/09/19 05/09/19 05/09/19 03:57 07:22 07:35 Temperature 97.7 F 98.2 F Pulse Rate 93 95 82 Respiratory 18 17 18 Rate Blood Pressure 154/98 156/104 (mmHg) O2 Sat by Pulse 97 97 96 Oximetry Oxygen Devices in Use Now: Nasal Cannula Appearance: 74 yo m in nAD, aAOx3, but poor historian Eyes: No Scleral Icterus, PERRLA Ears/Nose/Mouth/Throat: NL Teeth, Lips, Gums, Mucous Membranes Moist Neck: NL Appearance and Movements; NL JVP, Trachea Midline Respiratory: Symmetrical Chest Expansion and Respiratory Effort, - - scant wheezes and crackles at b/l bases Cardiovascular: - - irregular Abdominal: NL Sounds; No Tenderness; No Distention, No Hepatosplenomegaly Lymphatic: No Cervical Adenopathy Extremities: No Clubbing, Cyanosis, - - trace pedal edema Skin: No Nodules or Sclerosis Neurological: Alert and Oriented x 3, NL Muscle Strength and Tone Result Diagrams: 05/08/19 06:06 05/08/19 06:15 Microbiology and Other Data: Microbiology 05/01/19 10:55 Aerobic Blood Culture - Preliminary Blood Venous No Growth Day 4 Anaerobic Blood Culture - Preliminary No Growth Day 4 05/01/19 10:24 Aerobic Blood Culture - Preliminary Blood Venous No Growth Day 4 Anaerobic Blood Culture - Preliminary No Growth Day 4 04/29/19 13:25 Aerobic Blood Culture - Final Blood Venous No Growth Day 5 Anaerobic Blood Culture - Final No Growth Day 5 04/29/19 13:19 Aerobic Blood Culture - Final Blood Venous No Growth Day 5 Anaerobic Blood Culture - Final No Growth Day 5 05/04/19 09:41 Stool Occult Blood (BEATRIZ) - Final Stool 05/01/19 07:50 Gram Stain - Final Sputum Sputum Culture - Final Staphylococcus Aureus 04/29/19 13:50 Urine Culture - Final Urine No Growth (<1,000 CFU/mL) 04/29/19 15:27 Nasal Screen MRSA (PCR) - Final Nasal Mrsa Not Detected Assess/Plan/Problems-Billing Assessment: 74y M w/pmhx of HTN, Afib on Xarelto, DM2, Hypothyroidism, LV diastolic dysfunction, Gout, Chronic hypoxia on Home O2; admitted 04/29 after being found unresponsive, acute on chronic hypercapnic/hypoxic in ER and so was intubated. Found to have bilateral subdural hematomas, reversed Xarelto with Kcentra, but Neurosurgery suspected chronic hygromas, no surgical intervention suspected. Poor compliance with medications, history of confusion for months. Suspected COPD exacerbation with MSSA left lower lobe pneumonia as etiology. Extubated . Had intermittent restlessness and agitation after extubation - Patient Problems (1) COPD exacerbation Comment: NC 5 L ; will need to continue home oxygen on discharge -cont nocturnal NIV for JANN, but had been refusing -switched solumedrol 40mg to Prednisone PO on 05/07/19 -cont duoneb JAYY due to cont wheezes -IV abx for MSSA pneumonia (completed 05/05) -Wean Fio2 to keep sat>92% (2) Encephalopathy Comment: -fluctuating mental status in evenings; may be sun-downing; no other clear reason for delirium but he is on steroids, but stable hygromas, no further fevers/resp compromise but improving oxygenation -CT brain 05/03 with no new changes to chronic hygromas, -cont seroquel to 25mg po daily in evenings -prn haldol ; avoid bdz -history of falls in the past and forgetfullness; no history of dementia otherwise -Chronic subdurals, 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 -Xray of lumbar/thoracic spines with no overt fracture noted; neurosurg followup (3) Pneumonia Comment: sputum culture with MSSA+ -CXR last with left lower lobe infiltrate+ - CTX 1gm iv daily for MSSA pneumonia completed 5 days tx on 05/05/19 (4) JANN (obstructive sleep apnea) Comment: Has BIPAP at home, but is not using it (5) Heme + stool Comment: Sample obtained in ICU, no noted h/o melena or BRBPR. Hb stable, so no need for urgent GI eval. Needs outpatient colonoscopy PPI started (6) Atrial fibrillation Comment: chronic, anicoagulation stopped due to SDH cont Cardizem , Coreg Rate controled EF 60-65%, no sig valve abn on Echo (7) Hyperkalemia Comment: mild, treated with Patiromer and d/c ACEI on 05/07/19 (8) DM2 (diabetes mellitus, type 2) Comment: controlled on metformin and ISS (9) DVT prophylaxis Comment: SCD's, no anticoagulation due to SDH Status and Disposition: inpatient, medically ready for discharge will need STR
[2019-05-09] MEDS: Nystatin CREAM* 15 GM TUBE TOPICAL SCH ×2 (13:29→20:08)
[2019-05-09] MEDS: QUEtiapine TAB* 25 MG PO SCH (17:06)
[2019-05-10] MEDS: Albuterol/Ipratropium NEB.SOL* Albuterol 2.5 MG/Ipratropium 0.5 MG 3 ML INH SCH ×2 (01:37→07:25)
[2019-05-10] MEDS ORDERED: Albuterol/Ipratropium NEB.SOL* Albuterol 2.5 MG/Ipratropium 0.5 MG 3 ML INH PRN (07:28)
[2019-05-10] MEDS: Insulin LISPRO* 1 UNITS UNIT SUBCUT SCH ×4 (08:44→21:18)
[2019-05-10] MEDS: Isosorbide Mononitrate ER TAB* 60 MG PO SCH (08:58)
[2019-05-10] MEDS: Famotidine TAB* 20 MG PO SCH ×2 (08:58→20:42)
[2019-05-10] MEDS: predniSONE TAB* 20 MG PO SCH (08:58)
[2019-05-10] MEDS: Folic Acid TAB* 1 MG PO SCH (08:58)
[2019-05-10] MEDS: Levothyroxine TAB* 50 MCG TAB PO SCH (08:58)
[2019-05-10] MEDS: Furosemide TAB* 20 MG PO SCH (08:58)
[2019-05-10] MEDS: metFORMIN* 1,000 MG TAB PO SCH ×2 (08:58→20:42)
[2019-05-10] MEDS: Pantoprazole TAB * 40 MG TAB PO SCH (08:59)
[2019-05-10] MEDS: Diltiazem CD CAP* 120 MG PO SCH (08:59)
[2019-05-10] MEDS: Carvedilol TAB* 25 MG PO SCH ×2 (08:59→20:43)
[2019-05-10] MEDS: Magnesium Oxide TAB* 400 MG PO SCH (08:59)
[2019-05-10] MEDS: Atorvastatin* 10 MG TAB PO SCH (08:59)
[2019-05-10] MEDS: Nystatin CREAM* 15 GM TUBE TOPICAL SCH ×2 (11:18→20:42)
--- NOTE | 2019-05-10 16:29 | DS ---
ADDENDUM NOW INCLUDED ON THIS REPORT CC: Hailee Dilalo; Sylvie Parish NP; Dr. Lezama * DISCHARGE SUMMARY: DATE OF ADMISSION: 04/29/19 DATE OF ANTICIPATED DISCHARGE: 05/11/19 PRIMARY CARE PROVIDER: Sylvie Parish NP, from [place]. DISCHARGE DIAGNOSES: 1. Acute hypercapnic respiratory failure necessitating intubation. The patient was intubated on the day of admission, extubated on 05/02/19. 2. Subsequent development of an acute metabolic encephalopathy and sundowning that is improving. 3. Methicillin-susceptible Staphylococcus aureus pneumonia. 4. Bilateral subdural hematomas, reversed Xarelto with Kcentra, suspected chronic hygromas. The patient's anticoagulation was stopped and not recommended further. 5. Obstructive sleep apnea. The patient is on BiPAP at home, but not using it. 6. Episode of stool positive for blood with rather stable hemoglobin and no evidence of acute bleeding. SECONDARY DIAGNOSES: 1. Oxygen-dependent chronic obstructive pulmonary disease, on 2 L at home. 2. Obstructive sleep apnea, on BiPAP at home. The patient is not using. 3. History of chronic atrial fibrillation, on anticoagulation with Xarelto prior to the hospital stay. 4. History of gastroesophageal reflux disease. 5. Hypothyroidism. MEDICATIONS AT DISCHARGE: Include: 1. Lipitor 10 mg daily. 2. Coreg 50 mg b.i.d. 3. Colchicine 0.6 mg daily p.r.n. 4. Folic acid 1 mg daily. 5. Furosemide 20 mg daily. 6. Imdur ER 30 mg daily. 7. Levothyroxine 50 mcg daily. 8. Glucophage 1000 mg b.i.d. 9. Omeprazole 20 mg daily. 10. Diltiazem CD 180 mg daily. 11. Pepcid 20 mg b.i.d. 12. Magnesium oxide 800 mg daily. 13. Nystatin cream apply to the affected areas b.i.d. 14. Prednisone taper 40 mg daily for 2 days, then 20 mg daily for 2 days, then 10 mg daily for 2 days, then stop. 15. Seroquel 25 mg at bedtime scheduled. 16. Dulera 200/5 two inhalations b.i.d. 17. DuoNeb 1 neb every 4 hours p.r.n. wheezing. DISCHARGE INSTRUCTIONS: 1. The patient is currently on oxygen at 2 to 3 L, which is advised to be continued. 2. The patient's diet is diabetic. 3. The patient is to ambulate with assistance. DISPOSITION AT DISCHARGE: The patient is being discharged to [facility] rehabilitation [facility]. CONDITION ON DISCHARGE: Stable. LABORATORY DATA AND STUDIES PERFORMED DURING THE HOSPITAL STAY: Included on 08/25, white blood cell count of 7.7, hemoglobin of 12.9, hematocrit of 41, and platelets of 209. Sodium 139, potassium 4.6, chloride 98, carbon dioxide 37, BUN 35, creatinine 0.7, calcium of 10. Microbiology tests: Sputum culture is positive for MSSA. Stool occult positive for blood on 05/04/19. Blood cultures showed no growth and 1 set was placed on 04/29/19 and other set on 05/01/19. Brain CT most recently obtained on 05/09/19 after the patient hit his head on a bedside table showed "stable exam from 05/03/19 with prominence of the extraaxial space along with convexities. Stable postoperative changes centered in the right parietal and temporal regions. Cerebral volume loss. Mild chronic small vessel ischemic changes likely." Most recent chest x-ray obtained on 05/04/19, impression: "Resolving left basilar infiltrate and pleural effusion." Thoracic spine x-ray, impression: "Degenerative disk disease and osteoarthritis." Lumbar spine x-ray, impression: "Scoliosis with degenerative disk disease and osteoarthritis progressed from January 2005." Cervical spine MRI, impression: "Degenerative disk disease and osteoarthritis as described above. There is no abnormal enhancement. There is no bone or soft tissue edema to suggest acute injury." Brain MRI obtained on 04/30/19, impression: "Again noted are bilateral chronic subdural hematomas versus subdural hygromas. There is no enhancement or complex fluid to suggest subdural empyema. Chronic small vessel ischemic change. Diffuse involutional change. Moderate sinus mucosal inflammatory disease with air-fluid levels in the maxillary sinuses bilaterally, in the correct clinical setting this may represent acute sinusitis." The patient's transthoracic echocardiogram obtained on 04/30/19 shows EF of 60% to 65% with no significant valvular abnormalities. CONSULTATIONS DURING THE HOSPITAL STAY: Included Dr. Lezama from Neurosurgery. The patient was on splitting machine operator helper service for significant portion of his hospital stay. HOSPITALIZATION COURSE: Gary Stone is a 74-year-old male with history of medical noncompliance who has history of oxygen-dependent COPD and obstructive sleep apnea for which he was supposed to use BiPAP, but he was known by the family not to use either oxygen or BiPAP, who was found down on 04/29/19 [address] his apartment. The initial CT of the brain shows bilateral subdural hematomas that appeared to be chronic. The patient was noted to be confused at home according to his family members. His Xarelto was reversed with Kcentra. Neurosurgical consult was requested, who noted that the patient's CT brain changes are likely due to bilateral chronic hygromas. Nevertheless, due to the patient's history of intermittent confusion and falls, anticoagulation was not recommended by our splitting machine operator helper. The patient also was noted to be in hypercapnic respiratory failure and he was intubated. He was extubated on 05/02/19 with subsequent significant encephalopathy, confusion, and agitation. He was started on Seroquel for that and gradually improving. By the time of discharge, he still has episodes of sundowning, but that is markedly improved. During the day, he is not confused and he is oriented x3. He had been refusing BiPAP during his hospital stay, but it is recommended for the patient to continue his BiPAP from home at discharge to rehab. The patient also is recommended to continue on his oxygen at 5 to 6 L. The patient was treated for MSSA pneumonia with appropriate antibiotic course and finished it during his hospital stay. He was placed on Solu-Medrol and then transitioned to prednisone for COPD exacerbation. By the time of discharge , the patient is to continue prednisone taper as mentioned above. He also has still significant oxygen requirement at 5 to 6 L, that should be continued. He remained in atrial fibrillation that was rate controlled throughout his hospital stay. Once again, his anticoagulation was discontinued and is not recommended to be restarted due to his chronic subdural hematomas. Please note that the patient was evaluated by Physical Therapy and Occupational Therapy and deemed to be a good candidate to rehabilitation for further physical therapy. He is planned to be discharged to [facility] for further rehabilitation on 05/11/19. Disposition at discharge is to [facility]. Condition at discharge is stable. For physical exam, please see daily progress notes. Please note that this is a short summary of the patient's hospital stay. Please refer to further medical records for details. [id number] #: [id number]- [id number]/[facility] #: [id number] [facility]
[2019-05-10] MEDS: QUEtiapine TAB* 25 MG PO SCH (17:43)
[2019-05-10] MEDS: Haloperidol INJ IV/IM* 5 MG/ML AMP IV SLOW PU PRN (20:46)
[2019-05-11] MEDS: Haloperidol INJ IV/IM* 5 MG/ML AMP IV SLOW PU PRN (05:39)
[2019-05-11] MEDS: Insulin LISPRO* 1 UNITS UNIT SUBCUT SCH (08:21)
[2019-05-11] MEDS ORDERED: Ondansetron INJ* 2 MG/ML VIAL IV ONE (08:27)
[2019-05-11] MEDS ORDERED: Diltiazem CD CAP* 180 MG PO SCH (09:00)
[2019-05-11] MEDS: Folic Acid TAB* 1 MG PO SCH (09:12)
[2019-05-11] MEDS: Carvedilol TAB* 25 MG PO SCH (09:12)
[2019-05-11] MEDS: Atorvastatin* 10 MG TAB PO SCH (09:14)
[2019-05-11] MEDS: Pantoprazole TAB * 40 MG TAB PO SCH (09:14)
[2019-05-11] MEDS: Magnesium Oxide TAB* 400 MG PO SCH (09:14)
[2019-05-11] MEDS: Levothyroxine TAB* 50 MCG TAB PO SCH (09:15)
[2019-05-11] MEDS: Isosorbide Mononitrate ER TAB* 60 MG PO SCH (09:15)
[2019-05-11] MEDS: Furosemide TAB* 20 MG PO SCH (09:16)
[2019-05-11] MEDS: Famotidine TAB* 20 MG PO SCH (09:16)
[2019-05-11] MEDS: metFORMIN* 1,000 MG TAB PO SCH (09:16)
[2019-05-11] MEDS: predniSONE TAB* 20 MG PO SCH (09:17)
[2019-05-11] MEDS: Nystatin CREAM* 15 GM TUBE TOPICAL SCH (10:15)
--- NOTE | 2019-05-11 11:18 | DS ---
ADDENDUM: DISCHARGE SUMMARY: MEDICATIONS: Please note that the patient's Cardizem CD is increased to 180 mg daily from 120 that was noted on previous dictation. [id number]/[facility] #: [id number] [facility]
[2019-05-11 11:33] VITALS: BP 130/88
== END 2019-05-11 11:11 | DRG 208 ==
LOC: ED 12:52 → UNDOADMIN 14:26 → ICU 14:26 → MEDTELE 05-08 14:36
PROVIDERS: ADMIT Internal Medicine Critical Care Medicine; ATTEND Internal Medicine
PROC: 5A1945Z Respiratory Ventilation, 24-96 Consecutive Hours (ICD-10-PCS; principal; 2019-04-29)
PROC: 0BH17EZ Insertion of Endotracheal Airway into Trachea, Via Natural or Artificial Opening (ICD-10-PCS; 2019-04-29)
PROC: 5A09357 Assistance with Respiratory Ventilation, Less than 24 Consecutive Hours, Continuous Positive Airway Pressure (ICD-10-PCS; 2019-04-29)
PROC: 30283B1 Transfusion of Nonautologous 4-Factor Prothrombin Complex Concentrate into Vein, Percutaneous Approach (ICD-10-PCS; 2019-04-30)
PROC: 0BP1XDZ Removal of Intraluminal Device from Trachea, External Approach (ICD-10-PCS; 2019-05-02)
DX: J96.22 Acute and chronic respiratory failure with hypercapnia (principal); J15.211 Pneumonia due to Methicillin susceptible Staphylococcus aureus; I62.03 Nontraumatic chronic subdural hemorrhage; G93.41 Metabolic encephalopathy; J44.1 Chronic obstructive pulmonary disease with (acute) exacerbation; J44.0 Chronic obstructive pulmonary disease with (acute) lower respiratory infection; E87.2 Acidosis; G96.0 Cerebrospinal fluid leak; I48.20 Chronic atrial fibrillation, unspecified; J96.21 Acute and chronic respiratory failure with hypoxia; E11.9 Type 2 diabetes mellitus without complications; R40.2352 Coma scale, best motor response, localizes pain, at arrival to emergency department; R40.2142 Coma scale, eyes open, spontaneous, at arrival to emergency department; R40.2242 Coma scale, best verbal response, confused conversation, at arrival to emergency department; I50.9 Heart failure, unspecified; I11.0 Hypertensive heart disease with heart failure; E03.9 Hypothyroidism, unspecified; E66.9 Obesity, unspecified; R31.0 Gross hematuria; M41.56 Other secondary scoliosis, lumbar region; M47.812 Spondylosis without myelopathy or radiculopathy, cervical region; M47.816 Spondylosis without myelopathy or radiculopathy, lumbar region; M47.814 Spondylosis without myelopathy or radiculopathy, thoracic region; G47.33 Obstructive sleep apnea (adult) (pediatric); K21.9 Gastro-esophageal reflux disease without esophagitis; M10.9 Gout, unspecified; F17.200 Nicotine dependence, unspecified, uncomplicated; F03.90 Unspecified dementia, unspecified severity, without behavioral disturbance, psychotic disturbance, mood disturbance, and anxiety; E87.5 Hyperkalemia; Z68.37 Body mass index [BMI] 37.0-37.9, adult; Z99.81 Dependence on supplemental oxygen; Z79.01 Long term (current) use of anticoagulants; Z79.84 Long term (current) use of oral hypoglycemic drugs; Z79.899 Other long term (current) drug therapy; Z91.19 Patient's noncompliance with other medical treatment and regimen
CPT/HCPCS: 36415; 36600; 70450; 70553; 71045; 72070; 72100; 72125; 72156; 80048; 80053; 80320; 81003; 82140; 82272; 82550; 82803; 83605; 83735; 83874; 83880; 84100; 84484; 85025; 85027; 85610; 87040; 87070; 87077; 87086; 87186; 87205; 87641; 93005; 93306; 94002; 94003; 94640; 94660; 96374; 99285; A9270-GY; A9579; C8929; C9132; G0480; G8978-GP-CK; G8979-GP-CI; G8979-GP-CJ; J0330; J0360; J0692; J0696; J1630; J1940; J2060; J2405; J2704; J2930; J3010; J3475; J3486; J3490; J7512

== ENCOUNTER 2019-05-15 09:28 | Inpatient (IN) | payer OTHER ==
[2019-05-15 10:13] LABS: ABS Eosinophils 0.1 10^3/ul (0-0.6); ABS Lymphocytes 0.9 10^3/ul (1.0-4.8); ABS Monocytes 0.7 10^3/ul (0-0.8); ABS Neutrophils 6.7 10^3/ul (1.5-7.7); Eosinophil % 1.3 %; Hematocrit 42 % (42-52); Hemoglobin 13.4 g/dL (14.0-18.0); Lymphocyte % 10.4 %; Mean Corpuscular HGB Conc 32 g/dL (31-36); Mean Corpuscular Hemoglobin 28 pg (27-31); Mean Corpuscular Volume 88 fL (80-94); Mean Platelet Volume 8.3 fL (7.4-10.4); Platelet Count 224 10^3/uL (150-450); Red Blood Count 4.84 10^6 /uL (4.18-5.48); Red Cell Distribution Width 14 % (10-15); White Blood Count 8.4 10^3/uL (3.5-10.8)
--- NOTE | 2019-05-15 10:27 | ED ---
Adult Trauma - HPI Summary HPI Summary: This patient is a 74 year old M w hx chronic SDH, recent respiratory failure and intubation, brought to [facility] by EMS accompanied by sister and brother with a chief complaint of slight altered mental status due to fall. EMS reports he fell 2 days ago which was the 2nd time he has fallen recently. EMS reports pt hit head on cabinet making hole on the 2nd fall and has been more confused, forgetful, weak, fatigued, breathing worse, and more off than normal since fall. Pt reports not remembering falling so assumed LOC. EMS reports significant bruising on arm due to 1st fall. Pt reports left arm pain and bruising, head pain, sore neck, lower back pain, and swollen lower extremities. Pt was at [facility] for chronic subdural on Xarelto and taken off blood thinner . - History of Current Complaint Chief Complaint: EDShortnessOfBreath Stated Complaint: DIFF BREATHING PER EMS Time Seen by Provider: 05/15/19 09:32 Hx Obtained From: Patient Pain Intensity: 0 Aggravating Factor(s): Nothing Alleviating Factor(s): Nothing Associated Signs & Symptoms: Positive: Other: - more confused, forgetful, weak, fatigued, breathing worse, and more off than normal since; bruising; left arm pain and bruising, head pain, sore neck, lower back pain, and swollen lower extremities - Additional Pertinent History Primary Care Physician: [id number] - Allergy/Home Medications Allergies/Adverse Reactions: Allergies Allergy/AdvReac Type Severity Reaction Status Date / Time No Known Allergies Allergy Verified 05/15/12 14:04 Home Medications: Home Medications Acetaminophen [Tylenol Extra Strength] 1,000 mg PO TID 05/15/19 [History Confirmed 05/15/19] Diltiazem CD CAP* [Cardizem CD CAP*] 120 mg PO DAILY 05/15/19 [History Confirmed 05/15/19] Sertraline* [Zoloft*] 50 mg PO DAILY 05/15/19 [History Confirmed 05/15/19] predniSONE TAB* [Deltasone 20 MG TAB*] 10 mg PO DAILY 05/15/19 [History Confirmed 05/15/19] PMH/Surg Hx/FS Hx/Imm Hx Endocrine/Hematology History: Reports: Hx Diabetes Denies: Hx Anticoagulant Therapy, Hx Thyroid Disease Cardiovascular History: Reports: Hx Hypertension, Other Cardiovascular Problems/ Disorders - afib Denies: Hx Pacemaker/ICD Respiratory History: Reports: Hx Asthma, Hx Chronic Obstructive Pulmonary Disease (COPD) - YES 02 DEPENDENT AT HOME, Other Respiratory Problems/Disorders - Agent orange exposure History: Denies: Hx Renal Disease Sensory History: Reports: Hx Contacts or Glasses Denies: Hx Hearing Aid Opthamlomology History: Reports: Hx Contacts or Glasses Neurological History: Denies: Hx Dementia, Hx Seizures Psychiatric History: Denies: Hx Panic Disorder, Hx Substance Abuse - Surgical History Surgery Procedure, Year, and Place: None Infectious Disease History: No Infectious Disease History: Denies: Hx Hepatitis, Hx Human Immunodeficiency Virus (HIV), Traveled Outside the [place] in Last 30 Days - Family History Known Family History: Negative: Diabetes - Social History Alcohol Use: None Hx Substance Use: No Substance Use Type: Reports: None Hx Tobacco Use: Yes Smoking Status (MU): Former Smoker Review of Systems Positive: Other - respiratory failure Positive: Other - confused, forgetful, weak, fatigued, breathing worse, and more off than normal since fall; swollen arm Neurological: Other - slight altered mental status; confused, forgetful, weak, fatigued, breathing worse, and more off than normal since fall. ;; denies LOC All Other Systems Reviewed And Are Negative: Yes Physical Exam - Summary Physical Exam Summary: Constitutional: Well-developed, elderly, Alert. (-) Distressed Skin: ecchymosis to the left forearm HENT: Normocephalic; Atraumatic Eyes: Conjunctiva normal Neck: Musculoskeletal ROM normal neck. (-) JVD, (-) Stridor, (-) Nuchal rigidity Cardio: Irregularly irregular; Intact distal pulses; Radial pulses are 2+ and symmetric. (-) Murmur Pulmonary/Chest wall: slightly increased work of breathing, (-) Respiratory distress, (-) Wheezes, (-) Rales Abd: Soft, (-) tenderness, (-) Distension, (-) Guarding, (-) Rebound Musculoskeletal: 2+ edema to lower extremity, tenderness of the sacrum, paraspinal C spine tenderness, no midline CTL tenderness Neuro: Alert, Oriented x3 Psych: Mood and affect Normal Triage Information Reviewed: Yes Vital Signs On Initial Exam: Initial Vitals Temp Pulse Resp BP Pulse Ox 97 F 111 20 136/112 97 05/15/19 09:31 11/09/19 09:31 05/15/19 09:31 05/15/19 09:31 05/15/19 09:31 Vital Signs Reviewed: Yes Procedures - Sedation Patient Received Moderate/Deep Sedation with Procedure: No Diagnostics - Vital Signs Vital Signs Temp Pulse Resp BP Pulse Ox 05/15/19 09:37 20 05/15/19 09:35 98 14 136/112 97 05/15/19 09:33 8 05/15/19 09:31 97 F 111 20 136/112 97 - Laboratory Lab Results: Lab Results 05/15/19 Range/Units 09:47 WBC 8.4 (3.5-10.8) 10^3/uL RBC 4.84 (4.18-5.48) 10^6 /uL Hgb 13.4 L (14.0-18.0) g/dL Hct 42 (42-52) % MCV 88 (80-94) fL MCH 28 (27-31) pg MCHC 32 (31-36) g/dL RDW 14 (10-15) % Plt Count 224 (150-450) 10^3/uL MPV 8.3 (7.4-10.4) fL Neut % (Auto) 80.4 % Lymph % (Auto) 10.4 % Maury % (Auto) 7.8 % Eos % (Auto) 1.3 % Baso % (Auto) 0.1 % Absolute Neuts (auto) 6.7 (1.5-7.7) 10^3/ul Absolute Lymphs (auto) 0.9 L (1.0-4.8) 10^3/ul Absolute Monos (auto) 0.7 (0-0.8) 10^3/ul Absolute Eos (auto) 0.1 (0-0.6) 10^3/ul Absolute Basos (auto) 0.0 (0-0.2) 10^3/ul Absolute Nucleated RBC 0.0 10^3/ul Nucleated RBC % 0.0 Result Diagrams: 05/15/19 09:47 05/15/19 09:47 Lab Statement: Any lab studies that have been ordered have been reviewed, and results considered in the medical decision making process. - Radiology Pelvis X-Ray Radiology Interpretation Completed By: Radiologist Summary of Radiographic Findings: Per radiologist,. OSTEOARTHRITIS. NO ACUTE OSSEOUS INJURY. IF SYMPTOMS PERSIST, RECOMMEND REPEAT IMAGING. ED physician has reviewed this imaging report. Forearm X-Ray Radiology Interpretation Completed By: Radiologist Summary of Radiographic Findings: Per radiologist,. NO ACUTE OSSEOUS INJURY. IF SYMPTOMS PERSIST, RECOMMEND REPEAT IMAGING. ED physician has reviewed this imaging report. Chest X-Ray Radiology Interpretation Completed By: Radiologist Summary of Radiographic Findings: Per radiologist,. LEFT BASILAR ATELECTASIS VERSUS CONSOLIDATION. ED physician has reveiwed this imaging report. - CT Cervical Spine CT CT Interpretation Completed By: Radiologist Summary of CT Findings: Per radiologist,. DEGENERATIVE DISC DISEASE AND OSTEOARTHRITIS DESCRIBED ABOVE. NO ACUTE OSSEOUS INJURY TO THE CERVICAL SPINE. ED Physician has reviewed this imaging report. Brain CT CT Interpretation Completed By: Radiologist Summary of CT Findings: Per radiologist,. NO ACUTE INTRACRANIAL PATHOLOGY. POSTSURGICAL CHANGE. NO SIGNIFICANT CHANGE FROM MAY 09, 2019. ED physician has reviewed this imaging report. - EKG 0944 Cardiac Rate: NL - 110 BPM Summary of EKG Findings: An EKG taken at 0944, rate 110 BPM atrial fibrillation with artifact, consistent with prior. nml axis, nml intervals. No STEMI. No acute changes. Adult Trauma Course/Dx - Course Course Of Treatment: 74-year-old male with a history of hypercapnic respiratory failure, bilateral subdural hematomas, chronic, JANN who presents with confusion and dyspnea. EF 60-65% on echo. - patient w ecchymosis on arm, paraspinal C spine tenderness no midline, sacral tenderness. - brain/cspine CT neg for acute process. Forearm XRay negative. - CXR w ?LLL infiltrate. Will treat for PNA w lizet and renate. Plan for admit to medicine for PNA. - currently AAOx3, but family reports intermittent confusion. Could be 2/2 hypercapneic resp failure (CO2 77). Pending UA. - Diagnoses Provider Diagnoses: Fall, Pneumonia - Physician Notifications Discussed Care Of Patient With: Vinay Hale Time Discussed With Above Provider: 11:24 Instructed by Provider To: Admit As Inpatient Discharge ED - Sign-Out/Discharge Documenting (check all that apply): Patient Departure - admit - Discharge Plan Condition: Stable Disposition: ADMITTED TO [facility] Referrals: Sylvie Parish [Primary Care Provider] - - Billing Disposition and Condition Condition: STABLE Disposition: Admitted to [facility] - Attestation Statements Document Initiated by Yaquelin: Yes Documenting Scribe: Lakia Anguiano Provider For Whom Yaquelin is Documenting (Include Credential): Dr. Rajwinder Mclaughlin MD Scribe Attestation: ILakia, scribed for Dr. Rajwinder Mclaughlin MD on 05/15/19 at 1157. Scribe Documentation Reviewed: Yes Provider Attestation: The documentation as recorded by the Lakia pal accurately reflects the service I personally performed and the decisions made by il, Dr. Rajwinder Mclaughlin MD Status of Scribe Document: Viewed
[2019-05-15 10:34] LABS: Albumin 3.7 g/dL (3.2-5.2); Albumin/Globulin Ratio 1.3 (1-3); BUN/Creatinine Ratio 21.6 (8-20); Calcium 8.8 mg/dL (8.6-10.3); EGFR Non-African American 85.1 (>60); Globulin 2.8 g/dL (2-4); Potassium 3.6 mmol/L (3.5-5.0); Total Bilirubin 0.4 mg/dL (0.2-1.0); Total Protein 6.5 g/dL (6.4-8.9)
[2019-05-15 10:36] LABS: Troponin I 0.03 ng/mL (<0.04)
[2019-05-15] MEDS ORDERED: Furosemide IV* 10 MG/ML VIAL (40 MG) IV SLOW PU ONE (10:51)
[2019-05-15] MEDS ORDERED: DOXYcycline CAP(*) 100 MG PO ONE (11:23)
[2019-05-15] MEDS ORDERED: Amoxicillin/Clavulanate TAB* 875 MG PO ONE (11:23)
[2019-05-15] MEDS ORDERED: Albuterol/Ipratropium NEB.SOL* Albuterol 2.5 MG/Ipratropium 0.5 MG 3 ML INH PRN (12:37)
[2019-05-15] MEDS ORDERED: Dextrose 50% VIAL 50 ml IV PUSH PRN (12:51)
[2019-05-15 13:21] LABS: Urine Appearance Cloudy; Urine Bacteria Absent (Absent); Urine Bilirubin Negative (Negative); Urine Blood 2+ (Negative); Urine Color Yellow; Urine Glucose Negative (Negative); Urine Ketones Negative (Negative); Urine Nitrite Negative (Negative); Urine Protein Negative (Negative); Urine Red Blood Cell 1+(3-5/hpf) (Absent); Urine Specific Gravity 1.014 (1.010-1.030); Urine Urobilinogen Negative (Negative); Urine White Blood Cell 1+(6-10/hpf) (Absent)
[2019-05-15] MEDS ORDERED: Heparin VIAL(*) 5000 UNITS/ML VIAL (FIVE THOUSAND) SUBCUT SCH (14:00)
[2019-05-15 14:02] LABS: TSH (Thyroid Stimulating Horm) 0.52 mcIU/mL (0.34-5.60)
[2019-05-15] MEDS: QUEtiapine TAB* 25 MG PO SCH (14:29)
[2019-05-15] MEDS: Furosemide IV* 10 MG/ML VIAL (40 MG) IV SCH (14:30)
[2019-05-15] MEDS ORDERED: metFORMIN* 1,000 MG TAB PO SCH (17:00)
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
[2019-05-15] MEDS: Insulin LISPRO* 1 UNITS UNIT SUBCUT SCH (17:23)
[2019-05-15] MEDS: Mometasone/Formoter 200/5 MDI INH SCH (19:31)
[2019-05-15] MEDS: Carvedilol TAB* 25 MG PO SCH (20:30)
[2019-05-15] MEDS: Famotidine TAB* 20 MG PO SCH (20:30)
[2019-05-15] MEDS: Nystatin CREAM* 15 GM TUBE TOPICAL SCH (20:31)
[2019-05-16] MEDS: Levothyroxine TAB* 50 MCG TAB PO SCH (05:09)
[2019-05-16] MEDS: Mometasone/Formoter 200/5 MDI INH SCH ×2 (08:04→19:30)
[2019-05-16] MEDS: Insulin LISPRO* 1 UNITS UNIT SUBCUT SCH ×3 (08:37→17:19)
[2019-05-16] MEDS: Magnesium Oxide TAB* 400 MG PO SCH (08:38)
[2019-05-16] MEDS: Famotidine TAB* 20 MG PO SCH ×2 (08:39→21:16)
[2019-05-16] MEDS: Carvedilol TAB* 25 MG PO SCH ×2 (08:39→22:04)
[2019-05-16] MEDS: Sertraline* 50 MG TAB PO SCH (08:39)
[2019-05-16] MEDS: Atorvastatin* 10 MG TAB PO SCH (08:39)
[2019-05-16] MEDS: Folic Acid TAB* 1 MG PO SCH (08:39)
[2019-05-16] MEDS: predniSONE TAB* 10 MG PO SCH (08:39)
[2019-05-16] MEDS: Isosorbide Mononitrate ER TAB* 30 MG PO SCH (08:40)
[2019-05-16] MEDS: Furosemide IV* 10 MG/ML VIAL (40 MG) IV SCH ×2 (08:40→12:55)
[2019-05-16] MEDS: Nystatin CREAM* 15 GM TUBE TOPICAL SCH ×2 (08:40→22:06)
[2019-05-16] MEDS: Pantoprazole TAB * 40 MG TAB PO SCH (08:42)
[2019-05-16] MEDS ORDERED: Diltiazem CD CAP* 120 MG PO SCH (09:00)
[2019-05-16] MEDS ORDERED: Colchicine* 0.6 MG TAB PO SCH (09:00)
[2019-05-16 10:01] LABS: BUN/Creatinine Ratio 19.5 (8-20); Calcium 8.8 mg/dL (8.6-10.3); EGFR African American 104.4 (>60); EGFR Non-African American 86.3 (>60); Potassium 3.3 mmol/L (3.5-5.0)
--- NOTE | 2019-05-16 10:16 | PN ---
Subjective Date of Service: 05/16/19 Interval History: Patient states he wants to go home and doesn't want to go back to [facility] because he doesn't like the food there. Mentions his sister wants him to go to [facility]. Patient denies fever/chills, headache, chest pain, abd pain. Endorses some difficulty breathing but states, "That's always a problem." He does go on to mention that he feels his breathing is improved from yesterday. Discussed with RN at [facility]. Yesterday patient was in some respiratory distress which apparently improved with a duoneb. However, the patient's brother requested the patient be sent to the emergency room due to a fall 2 days prior that was not reported to [facility] staff. Additionally, [facility] staff did not realize there was a discharge order for overnight BiPAP and therefore he has not had it since he was at [facility]. Objective Active Medications: Acetaminophen (Tylenol Tab*) 650 mg PO Q4H PRN PRN Reason: mild to moderate pain Albuterol/Ipratropium (Duoneb (Albuterol 2.5 Mg/Ipratropium 0.5 Mg)) 1 neb INH Q4H PRN PRN Reason: WHEEZING Atorvastatin Calcium (Lipitor*) 10 mg PO DAILY [facility] Last Admin: 05/16/19 08:39 Dose: 10 mg Carvedilol (Coreg Tab*) 50 mg PO BID [facility] Last Admin: 05/16/19 08:39 Dose: 50 mg Dextrose (Dextrose 50% Vial 50 Ml*) 25 ml IV PUSH .FOR FS < 60 - SS PRN PRN Reason: FS < 60 Diltiazem HCl (Cardizem Cd Cap*) 120 mg PO DAILY [facility] Last Admin: 05/16/19 08:39 Dose: 120 mg Famotidine (Pepcid Tab*) 20 mg PO BID [facility] Last Admin: 05/16/19 08:39 Dose: 20 mg Folic Acid (Folvite Tab*) 1 mg PO DAILY [facility] Last Admin: 05/16/19 08:39 Dose: 1 mg Furosemide (Lasix Iv*) 40 mg IV 0800,1400 [facility] Last Admin: 05/16/19 08:40 Dose: 40 mg Insulin Human Lispro (Humalog*) 0 units SUBCUT [facility]; Protocol Last Admin: 05/16/19 08:37 Dose: Not Given Isosorbide Mononitrate (Imdur Er Tab*) 30 mg PO DAILY [facility] Last Admin: 05/16/19 08:40 Dose: 30 mg Levothyroxine Sodium (Synthroid Tab*) 50 mcg PO DAILY@0600 [facility] Last Admin: 05/16/19 05:09 Dose: 50 mcg Magnesium Oxide (Magox 400 Tab*) 800 mg PO DAILY [facility] Last Admin: 05/16/19 08:38 Dose: 800 mg Mometasone Furoate/Formoterol Fumar (Dulera 200/5 Mdi*) 2 puff INH BID [facility] Last Admin: 05/16/19 08:04 Dose: 2 puff Nystatin (Nystatin Cream*) 1 applic TOPICAL BID [facility] Last Admin: 05/16/19 08:40 Dose: 1 applic Pantoprazole Sodium (Protonix Tab*) 40 mg PO DAILY [facility] Last Admin: 05/16/19 08:42 Dose: 40 mg Prednisone (Deltasone Tab*) 10 mg PO DAILY [facility] Last Admin: 05/16/19 08:39 Dose: 10 mg Quetiapine Fumarate (Seroquel Tab*) 25 mg PO Q24H [facility] Last Admin: 05/15/19 14:29 Dose: 25 mg Sertraline HCl (Zoloft*) 50 mg PO DAILY [facility] Last Admin: 05/16/19 08:39 Dose: 50 mg Vital Signs - 8 hr 05/16/19 05/16/19 05/16/19 02:57 06:21 08:06 Temperature 97.0 F 97.5 F Pulse Rate 104 106 105 Respiratory 18 22 16 Rate Blood Pressure 117/73 159/97 (mmHg) O2 Sat by Pulse 98 91 98 Oximetry Oxygen Devices in Use Now: Nasal Cannula Appearance: Elderly, white male, sitting in chair, appearing comfortable and in NAD Eyes: No Scleral Icterus, - - PERRL Ears/Nose/Mouth/Throat: Mucous Membranes Moist Neck: Trachea Midline Respiratory: Symmetrical Chest Expansion and Respiratory Effort, Clear to Auscultation Cardiovascular: NL Sounds; No Murmurs; No JVD, RRR Abdominal: - - abd soft, nontender, nondistended Extremities: - - +2 pitting edema bilaterally pedally and snf up shins Skin: - - skin warm and intact Neurological: Alert and Oriented x 3, NL Muscle Strength and Tone Result Diagrams: 05/15/19 09:47 05/16/19 09:23 Additional Lab and Data: Lab Results 05/15/19 Range/Units 09:47 WBC 8.4 (3.5-10.8) 10^3/uL RBC 4.84 (4.18-5.48) 10^6 /uL Hgb 13.4 L (14.0-18.0) g/dL Hct 42 (42-52) % MCV 88 (80-94) fL MCH 28 (27-31) pg MCHC 32 (31-36) g/dL RDW 14 (10-15) % Plt Count 224 (150-450) 10^3/uL MPV 8.3 (7.4-10.4) fL Neut % (Auto) 80.4 % Lymph % (Auto) 10.4 % [place] % (Auto) 7.8 % Eos % (Auto) 1.3 % Baso % (Auto) 0.1 % Absolute Neuts (auto) 6.7 (1.5-7.7) 10^3/ul Absolute Lymphs (auto) 0.9 L (1.0-4.8) 10^3/ul Absolute Monos (auto) 0.7 (0-0.8) 10^3/ul Absolute Eos (auto) 0.1 (0-0.6) 10^3/ul Absolute Basos (auto) 0.0 (0-0.2) 10^3/ul Absolute Nucleated RBC 0.0 10^3/ul Nucleated RBC % 0.0 Microbiology and Other Data: Microbiology 05/15/19 16:00 Nasal Screen MRSA (PCR) - Final Nasal Mrsa Not Detected Assess/Plan/Problems-Billing Assessment: 74 yo white male with PMHx Afib not on AC due to recent subdural hematoma, DMT2 , HTN, HFpEF, and COPD with recent exacerbation 2/2 PNA presents with bilateral LE edema and altered mental status. - Patient Problems (1) UTI (urinary tract infection) Current Visit: Yes Status: Acute Comment: -urine culture positive for pseudomonas, S&S pending -ordered cefepime -possibly contributed to the altered mental status at admission, however this seemed improved at time of evaluation this morning (2) Hypercapnia Current Visit: Yes Status: Acute Code(s): R06.89 - OTHER ABNORMALITIES OF BREATHING SNOMED Code(s): 49458353 Comment: -likely due to not using BiPAP at [facility] since discharge on 05/10/19 -Bicarb 44 today, which is likely contributing to why patient was altered at admission though he does appear more mentally clear today despite worsening bicarb -ordered BiPAP overnight and transferring to ICU to receive BiPAP now too -VBG demonstrates compensation (3) COPD (chronic obstructive pulmonary disease) Current Visit: Yes Status: Acute Code(s): J44.9 - CHRONIC OBSTRUCTIVE PULMONARY DISEASE, UNSPECIFIED SNOMED Code(s): 88328424 Comment: -on 5-6L at home -appears patient is not on LAMA at home, starting spiriva -continue dulera and prn duonebs -likely contributes to CO2 retention. BiPAP overnight should be alleviating this -does not appear to have acute exacerbation but did in recent hospitalization (4) Acute on chronic heart failure with preserved ejection fraction Current Visit: Yes Status: Acute Code(s): I50.33 - ACUTE ON CHRONIC DIASTOLIC (CONGESTIVE) HEART FAILURE SNOMED Code(s): 395180315 Comment: -presents with bilateral LE edema -[facility] RN reports patien was compliant with medications since he has been there for TOBY, likely needs po lasix increase at discharge -continue IV lasix BID -LE edema improving, no lung crackles on exam (5) Atrial fibrillation Current Visit: No Status: Acute Code(s): I48.91 - UNSPECIFIED ATRIAL FIBRILLATION SNOMED Code(s): 24961797 Comment: -chronic, anicoagulation stopped due to SDH -was supposed to be discharged on 180mg diltiazem on last d/c, will continue now -minimally tachycardic which is likely related to being on incorrectly low dose of diltiazem at [facility] since last discharge -continue carvedilol -will closelyl monitor HR (6) Hypothyroidism Current Visit: Yes Status: Acute Code(s): E03.9 - HYPOTHYROIDISM, UNSPECIFIED SNOMED Code(s): 69802290 Comment: -continue levothyroxine (7) DM2 (diabetes mellitus, type 2) Current Visit: No Status: Acute Comment: -A1c 7.1 indicating good control for his age -on metformin at home which is on hold -continue lispro SS in the hospital (8) JANN (obstructive sleep apnea) Current Visit: No Status: Acute Code(s): G47.33 - OBSTRUCTIVE SLEEP APNEA ( ADULT) (PEDIATRIC) SNOMED Code(s): 37570414 Comment: -reportedly has BiPAP overnight at home that he was not adherent to, and due to unclear reasons was not receiving at [facility] for TOBY since [place] [facility] [place] -continue BiPAP o/n (9) Full code status Current Visit: Yes Status: Acute Code(s): Z78.9 - OTHER SPECIFIED HEALTH STATUS SNOMED Code(s): 299128460 (10) DVT prophylaxis Current Visit: No Status: Acute Code(s): Z29.9 - ENCOUNTER FOR PROPHYLACTIC MEASURES, UNSPECIFIED SNOMED Code(s): 639455544 Comment: -SCD's, no anticoagulation due to recent SDH Status and Disposition: pending further medical improvement, anticipate back to [facility] for continued TOBY at d/c
[2019-05-16] MEDS ORDERED: Haloperidol INJ IV/IM* 5 MG/ML AMP IV SLOW PU ONE (11:46)
[2019-05-16] MEDS ORDERED: diPHENhydraMINE PO* 25 MG PO ONE (11:47)
[2019-05-16] MEDS: QUEtiapine TAB* 25 MG PO SCH (12:27)
[2019-05-16] MEDS: KCL 20 MEQ/100 ML IVPREMIX* 20 MEQ/100 ML BAG IV SCH ×3 (16:04→21:04)
[2019-05-16] MEDS: Acetaminophen TAB* 325 MG PO PRN (17:19)
[2019-05-16] MEDS: Cefepime 1 GM in Dextrose(*) 1 GM/50 ML BAG IV SCH (18:38)
[2019-05-16] MEDS: SPIRIVA Respimat* (tiotropium) 2.5 mcg/inh Inhaler INH SCH (19:28)
[2019-05-16] MEDS ORDERED: Potassium Chlor TAB* 20 MEQ TAB.ER PO ONE (21:00)
[2019-05-17] MEDS: Acetaminophen TAB* 325 MG PO PRN ×5 (03:25→21:58)
[2019-05-17] MEDS: Cefepime 1 GM in Dextrose(*) 1 GM/50 ML BAG IV SCH ×3 (03:40→21:58)
[2019-05-17] MEDS: Levothyroxine TAB* 50 MCG TAB PO SCH (06:16)
[2019-05-17 07:06] LABS: Calcium 8.4 mg/dL (8.6-10.3); Chloride 94 mmol/L (101-111); Sodium 140 mmol/L (135-145)
[2019-05-17 07:09] LABS: Hematocrit 42 % (42-52); Hemoglobin 13.2 g/dL (14.0-18.0); Mean Corpuscular HGB Conc 32 g/dL (31-36); Mean Corpuscular Hemoglobin 28 pg (27-31); Mean Corpuscular Volume 88 fL (80-94); Red Blood Count 4.71 10^6 /uL (4.18-5.48); Red Cell Distribution Width 14 % (10-15); White Blood Count 5.9 10^3/uL (3.5-10.8)
[2019-05-17 07:11] LABS: BUN/Creatinine Ratio 20.9 (8-20); Blood Urea Nitrogen 18 mg/dL (6-24); EGFR African American 105.8 (>60); EGFR Non-African American 87.4 (>60); Glucose 114 mg/dL (70-100)
[2019-05-17 07:15] LABS: CO2 Carbon Dioxide 41 mmol/L (22-32)
[2019-05-17 07:43] LABS: ABS Eosinophils 0.1 10^3/ul (0-0.6); ABS Monocytes 0.6 10^3/ul (0-0.8); ABS Neutrophils 4.2 10^3/ul (1.5-7.7); Eosinophil % 2.1 %; Lymphocyte % 16.8 %; Mean Platelet Volume 8.8 fL (7.4-10.4); Nucleated Red Blood Cells % 0.1; Platelet Count 63 10^3/uL (150-450)
[2019-05-17 08:12] LABS: Anion Gap 5 mmol/L (2-11)
[2019-05-17] MEDS: Insulin LISPRO* 1 UNITS UNIT SUBCUT SCH ×3 (08:16→17:35)
[2019-05-17] MEDS: Furosemide IV* 10 MG/ML VIAL (40 MG) IV SCH ×2 (08:17→16:11)
[2019-05-17] MEDS: Carvedilol TAB* 25 MG PO SCH ×2 (08:18→20:22)
[2019-05-17] MEDS: Atorvastatin* 10 MG TAB PO SCH (08:18)
[2019-05-17] MEDS: Folic Acid TAB* 1 MG PO SCH (08:18)
[2019-05-17] MEDS: Diltiazem CD CAP* 180 MG PO SCH (08:18)
[2019-05-17] MEDS: Magnesium Oxide TAB* 400 MG PO SCH (08:18)
[2019-05-17] MEDS: Isosorbide Mononitrate ER TAB* 30 MG PO SCH (08:18)
[2019-05-17] MEDS: Famotidine TAB* 20 MG PO SCH ×2 (08:18→20:23)
[2019-05-17] MEDS: Pantoprazole TAB * 40 MG TAB PO SCH (08:19)
[2019-05-17] MEDS: Nystatin CREAM* 15 GM TUBE TOPICAL SCH ×2 (08:19→22:00)
[2019-05-17] MEDS: predniSONE TAB* 10 MG PO SCH (08:19)
[2019-05-17] MEDS: Sertraline* 50 MG TAB PO SCH (08:19)
[2019-05-17] MEDS: Mometasone/Formoter 200/5 MDI INH SCH ×2 (08:23→19:53)
[2019-05-17] MEDS: SPIRIVA Respimat* (tiotropium) 2.5 mcg/inh Inhaler INH SCH (08:23)
[2019-05-17 09:27] LABS: Magnesium 1.5 mg/dL (1.9-2.7)
[2019-05-17] MEDS: acetaZOLAMIDE VIAL* 500 MG in NS 0.9% 50 ML* 50 ML IVPB SCH (11:34)
[2019-05-17] MEDS ORDERED: Magnesium Sulfate 2 GM IV* 2 GM/50 ML BAG IVPB ONE (13:12)
--- NOTE | 2019-05-17 13:14 | PN ---
Subjective Date of Service: 05/17/19 Interval History: Patient tells me he had abdominal pain yesterday which is resolved today. He did not mention that yesterday during this selling underwriter's evaluation. Today he denies SOB, chest pain, fever/chills, visual changes, headache. He and his sister agree that he as previously prescribed a CPAP and he was not using it. Objective Active Medications: Acetaminophen (Tylenol Tab*) 650 mg PO Q4H PRN PRN Reason: mild to moderate pain Last Admin: 05/17/19 12:34 Dose: 650 mg Albuterol/Ipratropium (Duoneb (Albuterol 2.5 Mg/Ipratropium 0.5 Mg)) 1 neb INH Q4H PRN PRN Reason: WHEEZING Atorvastatin Calcium (Lipitor*) 10 mg PO DAILY [facility] Last Admin: 05/17/19 08:18 Dose: 10 mg Carvedilol (Coreg Tab*) 50 mg PO BID [facility] Last Admin: 05/17/19 08:18 Dose: 50 mg Dextrose (Dextrose 50% Vial 50 Ml*) 25 ml IV PUSH .FOR FS < 60 - SS PRN PRN Reason: FS < 60 Diltiazem HCl (Cardizem Cd Cap*) 180 mg PO DAILY [facility] Last Admin: 05/17/19 08:18 Dose: 180 mg Famotidine (Pepcid Tab*) 20 mg PO BID [facility] Last Admin: 05/17/19 08:18 Dose: 20 mg Folic Acid (Folvite Tab*) 1 mg PO DAILY [facility] Last Admin: 05/17/19 08:18 Dose: 1 mg Furosemide (Lasix Iv*) 40 mg IV 0800,1400 [facility] Last Admin: 05/17/19 08:17 Dose: 40 mg Cefepime HCl (Maxipime 1 Gm In Dextrose Duplex (*)) 1 gm in 50 mls @ 100 mls/ hr IV Q12H [facility] Last Admin: 05/17/19 03:40 Dose: 100 mls/hr Acetazolamide Sodium 500 mg/ (Sodium Chloride) 50 mls @ 100 mls/hr IVPB DAILY [facility] Last Admin: 05/17/19 11:34 Dose: 100 mls/hr Magnesium Sulfate (Magnesium Sulfate 2 Gm Iv*) 2 gm in 50 mls @ 50 mls/hr IVPB ONCE ONE Stop: 05/17/19 14:11 Insulin Human Lispro (Humalog*) 0 units SUBCUT AC [facility]; Protocol Last Admin: 05/17/19 12:35 Dose: 3 units Isosorbide Mononitrate (Imdur Er Tab*) 30 mg PO DAILY [facility] Last Admin: 05/17/19 08:18 Dose: 30 mg Levothyroxine Sodium (Synthroid Tab*) 50 mcg PO DAILY@0600 [facility] Last Admin: 05/17/19 06:16 Dose: 50 mcg Magnesium Oxide (Magox 400 Tab*) 800 mg PO DAILY [facility] Last Admin: 05/17/19 08:18 Dose: 800 mg Mometasone Furoate/Formoterol Fumar (Dulera 200/5 Mdi*) 2 puff INH BID [facility] Last Admin: 05/17/19 08:23 Dose: 2 puff Nystatin (Nystatin Cream*) 1 applic TOPICAL BID [facility] Last Admin: 05/17/19 08:19 Dose: 1 applic Pantoprazole Sodium (Protonix Tab*) 40 mg PO DAILY [facility] Last Admin: 05/17/19 08:19 Dose: 40 mg Prednisone (Deltasone Tab*) 10 mg PO DAILY [facility] Last Admin: 05/17/19 08:19 Dose: 10 mg Quetiapine Fumarate (Seroquel Tab*) 25 mg PO Q24H [facility] Last Admin: 05/16/19 12:27 Dose: 25 mg Sertraline HCl (Zoloft*) 50 mg PO DAILY [facility] Last Admin: 05/17/19 08:19 Dose: 50 mg Tamsulosin HCl (Flomax Cap*) 0.4 mg PO BEDTIME [facility] Tiotropium [place] (Spiriva Respimat 2.5 Mcg) 2 puff INH DAILY [facility] Last Admin: 05/17/19 08:23 Dose: 2 puff Vital Signs - 8 hr 05/17/19 05/17/19 08:00 08:27 Temperature 97.1 F Pulse Rate 97 103 Respiratory 20 18 Rate Blood Pressure 138/95 (mmHg) O2 Sat by Pulse 98 95 Oximetry Oxygen Devices in Use Now: Nasal Cannula Appearance: Elderly white male, laying upright in bed, appearing comfortable and in NAD; sister and brother at bedside Eyes: No Scleral Icterus, - - PERRL Ears/Nose/Mouth/Throat: Mucous Membranes Moist Neck: Trachea Midline Respiratory: Symmetrical Chest Expansion and Respiratory Effort, Clear to Auscultation Cardiovascular: NL Sounds; No Murmurs; No JVD, RRR Abdominal: - - abd soft, nontender, nondistended Extremities: - - +2 pitting edema bilaterally pedally up to [facility] through shins, overall unchanged from yesterday Skin: No Rash or Ulcers Neurological: Alert and Oriented x 3, NL Muscle Strength and Tone Result Diagrams: 05/17/19 15:16 05/17/19 15:16 Additional Lab and Data: Lab Results 05/15/19 Range/Units 09:47 WBC 8.4 (3.5-10.8) 10^3/uL RBC 4.84 (4.18-5.48) 10^6 /uL Hgb 13.4 L (14.0-18.0) g/dL Hct 42 (42-52) % MCV 88 (80-94) fL MCH 28 (27-31) pg MCHC 32 (31-36) g/dL RDW 14 (10-15) % Plt Count 224 (150-450) 10^3/uL MPV 8.3 (7.4-10.4) fL Neut % (Auto) 80.4 % Lymph % (Auto) 10.4 % [place] % (Auto) 7.8 % Eos % (Auto) 1.3 % Baso % (Auto) 0.1 % Absolute Neuts (auto) 6.7 (1.5-7.7) 10^3/ul Absolute Lymphs (auto) 0.9 L (1.0-4.8) 10^3/ul Absolute Monos (auto) 0.7 (0-0.8) 10^3/ul Absolute Eos (auto) 0.1 (0-0.6) 10^3/ul Absolute Basos (auto) 0.0 (0-0.2) 10^3/ul Absolute Nucleated RBC 0.0 10^3/ul Nucleated RBC % 0.0 Microbiology and Other Data: Microbiology 05/15/19 16:00 Nasal Screen MRSA (PCR) - Final Nasal Mrsa Not Detected Assess/Plan/Problems-Billing Assessment: 74 yo white male with PMHx Afib not on AC due to recent subdural hematoma, DMT2 , HTN, HFpEF, and COPD with recent exacerbation 2/2 PNA presents with bilateral LE edema and altered mental status. - Patient Problems (1) UTI (urinary tract infection) Current Visit: Yes Status: Acute Comment: -urine culture positive for pseudomonas -continue cefepime, sensitive -possibly contributed to the altered mental status at admission, however this seems resolved (2) Hypercapnia Current Visit: Yes Status: Acute Code(s): R06.89 - OTHER ABNORMALITIES OF BREATHING SNOMED Code(s): 40851723 Comment: -likely due to not using BiPAP at [facility] since discharge on 05/10/19, likely chronic retention due to COPD -possibly also contributing factor to AMS at admission -improving today -VBGs demonstrate compensation -continue BiPAP o/n. Need to ensure this is ordered for d/c to [facility] (3) Urinary retention Current Visit: Yes Status: Acute Code(s): R33.9 - RETENTION OF URINE, UNSPECIFIED SNOMED Code(s): 839701601 Comment: -Nursing verbally reports that patient had 960 cc urine output when carter inserted overnight -starting flomax -will trial carter out tomorrow with bladder scans (4) Acute on chronic heart failure with preserved ejection fraction Current Visit: Yes Status: Acute Code(s): I50.33 - ACUTE ON CHRONIC DIASTOLIC (CONGESTIVE) HEART FAILURE SNOMED Code(s): 385475827 Comment: -presents with bilateral LE edema -[facility] RN reports patien was compliant with medications since he has been there for [facility], likely needs po lasix increase at discharge -continue IV lasix BID -lungs clear, LE edema unchanged from yesterday -adding spironolactone to assist diuresis and prevent future hypokalemia which occurred today (5) COPD (chronic obstructive pulmonary disease) Current Visit: Yes Status: Acute Code(s): J44.9 - CHRONIC OBSTRUCTIVE PULMONARY DISEASE, UNSPECIFIED SNOMED Code(s): 05752479 Comment: -was on 5-6L at [facility] after recent discharge 05/10/19 -appears patient is not on LAMA at home, continue spiriva -continue dulera and prn duonebs -likely contributes to CO2 retention. BiPAP overnight should be alleviating this -does not appear to have acute exacerbation but did in recent hospitalization (6) Atrial fibrillation Current Visit: No Status: Acute Code(s): I48.91 - UNSPECIFIED ATRIAL FIBRILLATION SNOMED Code(s): 17967826 Comment: -chronic, anicoagulation stopped due to SDH -continue diltiazem and carvedilol -overall rate controlled, at times with HR tachycardic to low 100s but not symptomatic (7) Hypothyroidism Current Visit: Yes Status: Acute Code(s): E03.9 - HYPOTHYROIDISM, UNSPECIFIED SNOMED Code(s): 84355769 Comment: -continue levothyroxine (8) DM2 (diabetes mellitus, type 2) Current Visit: No Status: Acute Comment: -A1c 7.1 indicating good control for his age -on metformin at home which is on hold -continue lispro SS in the hospital (9) JANN (obstructive sleep apnea) Current Visit: No Status: Acute Code(s): G47.33 - OBSTRUCTIVE SLEEP APNEA ( ADULT) (PEDIATRIC) SNOMED Code(s): 33614510 Comment: -reportedly has CPAP overnight at home that he was not adherent to, and due to unclear reasons was not receiving ordered BiPAP at [facility] for TOBY since discharge from [facility] 05/10/19 -continue BiPAP o/n (10) Hypomagnesemia Current Visit: Yes Status: Acute Code(s): E83.42 - HYPOMAGNESEMIA SNOMED Code(s): 225017704 Comment: -possibly related to diuresis -possibly contributing to hypercapnia -replacing and will reassess (11) Full code status Current Visit: Yes Status: Acute Code(s): Z78.9 - OTHER SPECIFIED HEALTH STATUS SNOMED Code(s): 847345230 (12) DVT prophylaxis Current Visit: No Status: Acute Code(s): Z29.9 - ENCOUNTER FOR PROPHYLACTIC MEASURES, UNSPECIFIED SNOMED Code(s): 902921691 Comment: -SCD's, no anticoagulation due to recent SDH Status and Disposition: pending further medical improvement. Came from [facility] at [facility] and has been accepted to [facility] at [facility]
[2019-05-17 15:34] LABS: ABS Eosinophils 0.1 10^3/ul (0-0.6); ABS Lymphocytes 0.8 10^3/ul (1.0-4.8); ABS Monocytes 0.7 10^3/ul (0-0.8); ABS Neutrophils 9.5 10^3/ul (1.5-7.7); Eosinophil % 0.9 %; Hematocrit 42 % (42-52); Hemoglobin 13.4 g/dL (14.0-18.0); Lymphocyte % 6.9 %; Mean Corpuscular HGB Conc 32 g/dL (31-36); Mean Corpuscular Hemoglobin 28 pg (27-31); Mean Corpuscular Volume 88 fL (80-94); Nucleated Red Blood Cells % 0.1; Platelet Count 253 10^3/uL (150-450); Red Blood Count 4.79 10^6 /uL (4.18-5.48); Red Cell Distribution Width 14 % (10-15)
[2019-05-17 15:57] LABS: BUN/Creatinine Ratio 20.6 (8-20); Calcium 8.6 mg/dL (8.6-10.3); EGFR African American 82.2 (>60); EGFR Non-African American 67.9 (>60); Potassium 3.8 mmol/L (3.5-5.0)
[2019-05-17] MEDS: QUEtiapine TAB* 25 MG PO SCH (16:11)
[2019-05-17] MEDS: Spironolactone TAB* 25 MG PO SCH (16:11)
[2019-05-17] MEDS: Tamsulosin CAP* 0.4 MG PO SCH (20:24)
[2019-05-18 05:07] LABS: ABS Eosinophils 0.2 10^3/ul (0-0.6); ABS Lymphocytes 1.1 10^3/ul (1.0-4.8); ABS Monocytes 0.6 10^3/ul (0-0.8); ABS Neutrophils 4.7 10^3/ul (1.5-7.7); Eosinophil % 2.7 %; Hematocrit 40 % (42-52); Hemoglobin 13.1 g/dL (14.0-18.0); Lymphocyte % 16.2 %; Mean Corpuscular HGB Conc 33 g/dL (31-36); Mean Corpuscular Hemoglobin 28 pg (27-31); Mean Corpuscular Volume 85 fL (80-94); Mean Platelet Volume 7.7 fL (7.4-10.4); Platelet Count 177 10^3/uL (150-450); Red Blood Count 4.65 10^6 /uL (4.18-5.48); Red Cell Distribution Width 14 % (10-15); White Blood Count 6.6 10^3/uL (3.5-10.8)
[2019-05-18 05:23] LABS: BUN/Creatinine Ratio 26.5 (8-20); Calcium 8.2 mg/dL (8.6-10.3); EGFR African American 110.2 (>60); EGFR Non-African American 91.1 (>60); Magnesium 1.9 mg/dL (1.9-2.7)
[2019-05-18] MEDS: Levothyroxine TAB* 50 MCG TAB PO SCH (06:03)
[2019-05-18] MEDS: Insulin LISPRO* 1 UNITS UNIT SUBCUT SCH ×3 (07:53→18:21)
[2019-05-18] MEDS: SPIRIVA Respimat* (tiotropium) 2.5 mcg/inh Inhaler INH SCH (08:24)
[2019-05-18] MEDS: Mometasone/Formoter 200/5 MDI INH SCH ×2 (08:24→19:30)
[2019-05-18] MEDS ORDERED: Potassium Chlor TAB* 20 MEQ TAB.ER PO ONE (08:28)
[2019-05-18] MEDS: Cefepime 1 GM in Dextrose(*) 1 GM/50 ML BAG IV SCH ×2 (08:36→21:39)
[2019-05-18] MEDS: Furosemide IV* 10 MG/ML VIAL (40 MG) IV SCH ×2 (08:36→14:17)
[2019-05-18] MEDS: Diltiazem CD CAP* 180 MG PO SCH (08:37)
[2019-05-18] MEDS: Spironolactone TAB* 25 MG PO SCH (08:37)
[2019-05-18] MEDS: Famotidine TAB* 20 MG PO SCH ×2 (08:37→20:23)
[2019-05-18] MEDS: Carvedilol TAB* 25 MG PO SCH (08:37)
[2019-05-18] MEDS: Nystatin CREAM* 15 GM TUBE TOPICAL SCH ×2 (08:37→21:39)
[2019-05-18] MEDS: predniSONE TAB* 10 MG PO SCH (08:37)
[2019-05-18] MEDS: Isosorbide Mononitrate ER TAB* 30 MG PO SCH (08:37)
[2019-05-18] MEDS: Folic Acid TAB* 1 MG PO SCH (08:37)
[2019-05-18] MEDS: Magnesium Oxide TAB* 400 MG PO SCH (08:38)
[2019-05-18] MEDS: Pantoprazole TAB * 40 MG TAB PO SCH (08:38)
[2019-05-18] MEDS: Atorvastatin* 10 MG TAB PO SCH (08:38)
[2019-05-18] MEDS: Sertraline* 50 MG TAB PO SCH (08:38)
[2019-05-18] MEDS: acetaZOLAMIDE VIAL* 500 MG in NS 0.9% 50 ML* 50 ML IVPB SCH (09:46)
[2019-05-18] MEDS: Acetaminophen TAB* 325 MG PO PRN ×2 (09:46→20:23)
[2019-05-18] MEDS ORDERED: Simethicone TAB* 80 MG TAB.CHEW PO PRN (10:35)
--- NOTE | 2019-05-18 10:39 | PN ---
Subjective Date of Service: 05/18/19 Interval History: Patient c/o lower abdominal pain shortly after breakfast. Says he has now started eating an apple "to see if that helps." Patient denies nausea, vomiting , fever/chills, difficulty breathing, chest pain. Urgently called to bedside approx 1300 and patient was tammie appearing, hypoxic and requiring 15 L via oxymask, hypotensive to 80s/40s-50s. C/o chest pain, but 5-10 min later denies this. Transferred to ICU for BiPAP Objective Active Medications: Acetaminophen (Tylenol Tab*) 650 mg PO Q4H PRN PRN Reason: mild to moderate pain Last Admin: 05/18/19 09:46 Dose: 650 mg Albuterol/Ipratropium (Duoneb (Albuterol 2.5 Mg/Ipratropium 0.5 Mg)) 1 neb INH Q4H PRN PRN Reason: WHEEZING Atorvastatin Calcium (Lipitor*) 10 mg PO DAILY [facility] Last Admin: 05/18/19 08:38 Dose: 10 mg Carvedilol (Coreg Tab*) 50 mg PO BID [facility] Last Admin: 05/18/19 08:37 Dose: 50 mg Dextrose (Dextrose 50% Vial 50 Ml*) 25 ml IV PUSH .FOR FS < 60 - SS PRN PRN Reason: FS < 60 Diltiazem HCl (Cardizem Cd Cap*) 180 mg PO DAILY [facility] Last Admin: 05/18/19 08:37 Dose: 180 mg Famotidine (Pepcid Tab*) 20 mg PO BID [facility] Last Admin: 05/18/19 08:37 Dose: 20 mg Folic Acid (Folvite Tab*) 1 mg PO DAILY [facility] Last Admin: 05/18/19 08:37 Dose: 1 mg Furosemide (Lasix Iv*) 40 mg IV 0800,1400 [facility] Last Admin: 05/18/19 08:36 Dose: 40 mg Acetazolamide Sodium 500 mg/ (Sodium Chloride) 50 mls @ 100 mls/hr IVPB DAILY [facility] Last Admin: 05/18/19 09:46 Dose: 100 mls/hr Cefepime HCl (Maxipime 1 Gm In Dextrose Duplex (*)) 1 gm in 50 mls @ 100 mls/ hr IV 0900,2100 [facility] Last Admin: 05/18/19 08:36 Dose: 100 mls/hr Potassium Chloride (Potassium Chloride 20 Meq/100 Ml Ivpremix*) 20 meq in 100 mls @ 50 mls/hr IV Q2H [facility] Stop: 05/18/19 12:59 Insulin Human Lispro (Humalog*) 0 units SUBCUT AC [facility]; Protocol Last Admin: 05/18/19 07:53 Dose: Not Given Isosorbide Mononitrate (Imdur Er Tab*) 30 mg PO DAILY [facility] Last Admin: 05/18/19 08:37 Dose: 30 mg Levothyroxine Sodium (Synthroid Tab*) 50 mcg PO DAILY@0600 [facility] Last Admin: 05/18/19 06:03 Dose: 50 mcg Magnesium Oxide (Magox 400 Tab*) 800 mg PO DAILY [facility] Last Admin: 05/18/19 08:38 Dose: 800 mg Mometasone Furoate/Formoterol Fumar (Dulera 200/5 Mdi*) 2 puff INH BID [facility] Last Admin: 05/18/19 08:24 Dose: 2 puff Nystatin (Nystatin Cream*) 1 applic TOPICAL BID [facility] Last Admin: 05/18/19 08:37 Dose: 1 applic Pantoprazole Sodium (Protonix Tab*) 40 mg PO DAILY [facility] Last Admin: 05/18/19 08:38 Dose: 40 mg Quetiapine Fumarate (Seroquel Tab*) 25 mg PO Q24H [facility] Last Admin: 05/17/19 16:11 Dose: 25 mg Sertraline HCl (Zoloft*) 50 mg PO DAILY [facility] Last Admin: 05/18/19 08:38 Dose: 50 mg Spironolactone (Aldactone Tab*) 25 mg PO DAILY [facility] Last Admin: 05/18/19 08:37 Dose: 25 mg Tamsulosin HCl (Flomax Cap*) 0.4 mg PO BEDTIME [facility] Last Admin: 05/17/19 20:24 Dose: 0.4 mg Tiotropium [place] (Spiriva Respimat 2.5 Mcg) 2 puff INH DAILY [facility] Last Admin: 05/18/19 08:24 Dose: 2 puff Vital Signs - 8 hr 05/18/19 05/18/19 05/18/19 03:33 08:00 08:27 Temperature 97.8 F Pulse Rate 96 97 Respiratory 20 16 18 Rate Blood Pressure 99/76 (mmHg) O2 Sat by Pulse 99 96 Oximetry 05/18/19 09:05 Temperature 97.3 F Pulse Rate 97 Respiratory 16 Rate Blood Pressure 148/93 (mmHg) O2 Sat by Pulse 98 Oximetry Oxygen Devices in Use Now: Nasal Cannula Appearance: Elderly white male, sitting in hospital recliner, eating an apple, appearing comfortable and in NAD Eyes: No Scleral Icterus, - - PERRL Ears/Nose/Mouth/Throat: Mucous Membranes Moist Neck: Trachea Midline Respiratory: Symmetrical Chest Expansion and Respiratory Effort, - - expiratory wheeze in right LL and left mid lung field Cardiovascular: NL Sounds; No Murmurs; No JVD, RRR Abdominal: - - abd soft, nontender, nondistended Extremities: No Clubbing, Cyanosis, - - +1 pitting edema pedally and to ankles bilaterally Skin: No Rash or Ulcers Neurological: Alert and Oriented x 3, NL Muscle Strength and Tone Result Diagrams: 05/18/19 04:53 05/18/19 13:17 Additional Lab and Data: Lab Results 05/15/19 Range/Units 09:47 WBC 8.4 (3.5-10.8) 10^3/uL RBC 4.84 (4.18-5.48) 10^6 /uL Hgb 13.4 L (14.0-18.0) g/dL Hct 42 (42-52) % MCV 88 (80-94) fL MCH 28 (27-31) pg MCHC 32 (31-36) g/dL RDW 14 (10-15) % Plt Count 224 (150-450) 10^3/uL MPV 8.3 (7.4-10.4) fL Neut % (Auto) 80.4 % Lymph % (Auto) 10.4 % [place] % (Auto) 7.8 % Eos % (Auto) 1.3 % Baso % (Auto) 0.1 % Absolute Neuts (auto) 6.7 (1.5-7.7) 10^3/ul Absolute Lymphs (auto) 0.9 L (1.0-4.8) 10^3/ul Absolute Monos (auto) 0.7 (0-0.8) 10^3/ul Absolute Eos (auto) 0.1 (0-0.6) 10^3/ul Absolute Basos (auto) 0.0 (0-0.2) 10^3/ul Absolute Nucleated RBC 0.0 10^3/ul Nucleated RBC % 0.0 Microbiology and Other Data: Microbiology 05/15/19 16:00 Nasal Screen MRSA (PCR) - Final Nasal Mrsa Not Detected Assess/Plan/Problems-Billing Assessment: 74 yo white male with PMHx Afib not on AC due to recent subdural hematoma, DMT2 , HTN, HFpEF, and COPD with recent exacerbation 2/2 PNA presents with bilateral LE edema and altered mental status. - Patient Problems (1) Hypoxia Current Visit: Yes Status: Acute Code(s): R09.02 - HYPOXEMIA SNOMED Code(s ): 598196044 Comment: -transferred to ICU for urgent BiPAP and hypotension -Dr. Sheehan consulted, appreciate recommendations. Holding diuretics and giving IVF. BP improving. -ABG compensated (2) UTI (urinary tract infection) Current Visit: Yes Status: Acute Comment: -urine culture positive for pseudomonas -continue cefepime, sensitive -possibly contributed to the altered mental status at admission, however this seems resolved (3) Hypercapnia Current Visit: Yes Status: Acute Code(s): R06.89 - OTHER ABNORMALITIES OF BREATHING SNOMED Code(s): 22066725 Comment: -likely due to not using BiPAP at [place] since discharge on 05/10/19, likely chronic retention due to COPD -possibly also contributing factor to AMS at admission -VBGs demonstrate compensation -continue BiPAP o/n. Need to ensure this is ordered for d/c to [facility] -continues to improve (4) Urinary retention Current Visit: Yes Status: Acute Code(s): R33.9 - RETENTION OF URINE, UNSPECIFIED SNOMED Code(s): 337924247 Comment: -Nursing verbally reports that patient had 960 cc urine output when carter inserted overnight -starting flomax -will trial carter out today with bladder scans (5) Acute on chronic heart failure with preserved ejection fraction Current Visit: Yes Status: Acute Code(s): I50.33 - ACUTE ON CHRONIC DIASTOLIC (CONGESTIVE) HEART FAILURE SNOMED Code(s): 884865768 Comment: -presents with bilateral LE edema -[place] RN reports patien was compliant with medications since he has been there for [facility], likely needs po lasix increase at discharge -holding diuretics in setting of sudden hypotension today -lungs clear, LE edema improving (6) COPD (chronic obstructive pulmonary disease) Current Visit: Yes Status: Acute Code(s): J44.9 - CHRONIC OBSTRUCTIVE PULMONARY DISEASE, UNSPECIFIED SNOMED Code(s): 86626568 Comment: -was on 5-6L at [facility] after recent discharge 05/10/19 -appears patient is not on LAMA at home, continue spiriva -continue dulera and prn duonebs -likely contributes to CO2 retention. BiPAP overnight should be alleviating this -does not appear to have acute exacerbation but did in recent hospitalization. Now on 4L oxygen -finished prednisone taper (7) Atrial fibrillation Current Visit: No Status: Acute Code(s): I48.91 - UNSPECIFIED ATRIAL FIBRILLATION SNOMED Code(s): 78804581 Comment: -chronic, anicoagulation stopped due to SDH -continue diltiazem and carvedilol -overall rate controlled, at times with HR tachycardic to low 100s but not symptomatic (8) Hypothyroidism Current Visit: Yes Status: Acute Code(s): E03.9 - HYPOTHYROIDISM, UNSPECIFIED SNOMED Code(s): 52366722 Comment: -continue levothyroxine (9) DM2 (diabetes mellitus, type 2) Current Visit: No Status: Acute Comment: -A1c 7.1 indicating good control for his age -on metformin at home which is on hold -continue lispro SS in the hospital (10) JANN (obstructive sleep apnea) Current Visit: No Status: Acute Code(s): G47.33 - OBSTRUCTIVE SLEEP APNEA ( ADULT) (PEDIATRIC) SNOMED Code(s): 82409373 Comment: -due to unclear reasons was not receiving ordered BiPAP at [place] for [facility] [place] [facility] [place] -continue BiPAP o/n (11) Hypomagnesemia Current Visit: Yes Status: Acute Code(s): E83.42 - HYPOMAGNESEMIA SNOMED Code(s): 297091281 Comment: -possibly related to diuresis -possibly contributing to hypercapnia -replacing and will reassess (12) Full code status Current Visit: Yes Status: Acute Code(s): Z78.9 - OTHER SPECIFIED HEALTH STATUS SNOMED Code(s): 146809432 (13) DVT prophylaxis Current Visit: No Status: Acute Code(s): Z29.9 - ENCOUNTER FOR PROPHYLACTIC MEASURES, UNSPECIFIED SNOMED Code(s): 246555362 Comment: -SCD's, no anticoagulation due to recent SDH Status and Disposition: pending further medical improvement. Came from [facility] at [place] and has been accepted to [facility] at [facility]
[2019-05-18] MEDS: KCL 20 MEQ/100 ML IVPREMIX* 20 MEQ/100 ML BAG IV SCH ×3 (10:50→19:39)
[2019-05-18] MEDS ORDERED: Morphine INJ* 2 MG/ML 1 ML SYRINGE (TWO MG - NEW SYRINGE VERSION) ONE (13:16)
[2019-05-18 13:48] LABS: Troponin I 0.01 ng/mL (<0.04)
[2019-05-18 13:51] LABS: BUN/Creatinine Ratio 22.3 (8-20); Calcium 8.2 mg/dL (8.6-10.3); EGFR African American 95.5 (>60); EGFR Non-African American 78.9 (>60); Potassium 3.9 mmol/L (3.5-5.0)
[2019-05-18] MEDS ORDERED: NS 0.9% 500 ML* 500 ML IV ONE ×2 (13:55→14:14)
--- NOTE | 2019-05-18 13:59 | PN ---
Date of Service: 05/18/19 Critical Care Services: transferred to ICU for hypoxemia and hypotension. patient on multiple BP medications and negative balance past several days. ABG prior to admission to ICU: 7.40/57/79/31/97.5%. Patient with long hx of COPD and on 4-5 liters NC at home. Vital Signs: Temp Pulse Resp BP SpO2 FiO2 97.6 F 82 18 95/64 98 05/18/19 12:00 05/18/19 12:00 05/18/19 12:00 05/18/19 12:00 05/18/19 12:00 Physical Exam: Gen: AO times 3. Following and answering appropriately. HEENT: EOMI Lungs: Decreased bS's Cardiac: RRR Abdomen: +BS's, Soft, NTP. Extremities: No JOANN Neuro: no focal deficits Fluid Balance (Past 24 Hours): I= O= Net Intake & Output 05/16/19 05/17/19 05/18/19 05/19/19 06:59 06:59 06:59 06:59 Intake Total 635 0440 600 4534 Output Total 3175 3775 1800 Balance 635 -1553 -3065 -740 Weight 261 lb 256 lb 9.6 oz 244 lb 1.6 oz Intake: IV Fluids 20 200 30 ABX - CEFEPIME 30 30 NS (0.9%) 20 Potassium 170 IVPB 272 50 100 ABX - CEFEPIME 112 50 100 Potassium 160 Oral 615 1150 630 960 Output: Urine 1775 2600 [place] 1400 1175 1800 Other: Estimated Void Medium Large # Bowel Movements 0 1 Estimated Stool Amount Medium Small # Voids 1 1 Labs: Laboratory Results - last 24 hr 05/17/19 05/17/19 05/17/19 05:55 15:16 15:16 WBC 11.0 H RBC 4.79 Hgb 13.4 L Hct 42 MCV 88 MCH 28 MCHC 32 RDW 14 Plt Count 253 MPV 8.0 Neut % (Auto) 85.9 Lymph % (Auto) 6.9 [place] % (Auto) 6.0 Eos % (Auto) 0.9 Baso % (Auto) 0.3 Absolute Neuts (auto) 9.5 H Absolute Lymphs (auto) 0.8 L Absolute Monos (auto) 0.7 Absolute Eos (auto) 0.1 Absolute Basos (auto) 0.0 Absolute Nucleated RBC 0.0 Nucleated RBC % 0.1 Hem Pathologist Commnt Patient Temperature ABG pH ABG pH (Temp Correct) ABG pCO2 ABG pCO2 (Temp Corrct ABG pO2 ABG pO2 (Temp Correct ABG HCO3 ABG O2 Saturation ABG Base Excess Respiration Rate O2 Delivery Device Ventilator Type Vent Mode FiO2 Inspiratory Time PEEP Pressure Support Pressure Control EPAP IPAP BiPAP Sodium 141 Potassium 3.8 Chloride 92 L Carbon Dioxide 41 H* Anion Gap 8 BUN 22 Creatinine 1.07 Est GFR ( Amer) 82.2 Est GFR (Non-Af Amer) 67.9 BUN/Creatinine Ratio 20.6 H Glucose 115 H POC Glucose (mg/dL) Lactic Acid Calcium 8.6 Magnesium Troponin I 05/17/19 05/17/19 05/18/19 17:08 20:10 04:53 WBC 6.6 RBC 4.65 Hgb 13.1 L Hct 40 L MCV 85 MCH 28 MCHC 33 RDW 14 Plt Count 177 MPV 7.7 Neut % (Auto) 71.6 Lymph % (Auto) 16.2 [place] % (Auto) 8.9 Eos % (Auto) 2.7 Baso % (Auto) 0.6 Absolute Neuts (auto) 4.7 Absolute Lymphs (auto) 1.1 Absolute Monos (auto) 0.6 Absolute Eos (auto) 0.2 Absolute Basos (auto) 0.0 Absolute Nucleated RBC 0.0 Nucleated RBC % 0.0 Hem Pathologist Commnt Patient Temperature ABG pH ABG pH (Temp Correct) ABG pCO2 ABG pCO2 (Temp Corrct ABG pO2 ABG pO2 (Temp Correct ABG HCO3 ABG O2 Saturation ABG Base Excess Respiration Rate O2 Delivery Device Ventilator Type Vent Mode FiO2 Inspiratory Time PEEP Pressure Support Pressure Control EPAP IPAP BiPAP Sodium Potassium Chloride Carbon Dioxide Anion Gap BUN Creatinine Est GFR ( Amer) Est GFR (Non-Af Amer) BUN/Creatinine Ratio Glucose POC Glucose (mg/dL) 200 H 169 H Lactic Acid Calcium Magnesium Troponin I 05/18/19 05/18/19 05/18/19 04:53 07:21 11:23 WBC RBC Hgb Hct MCV MCH MCHC RDW Plt Count MPV Neut % (Auto) Lymph % (Auto) [place] % (Auto) Eos % (Auto) Baso % (Auto) Absolute Neuts (auto) Absolute Lymphs (auto) Absolute Monos (auto) Absolute Eos (auto) Absolute Basos (auto) Absolute Nucleated RBC Nucleated RBC % Hem Pathologist Commnt Patient Temperature ABG pH ABG pH (Temp Correct) ABG pCO2 ABG pCO2 (Temp Corrct ABG pO2 ABG pO2 (Temp Correct ABG HCO3 ABG O2 Saturation ABG Base Excess Respiration Rate O2 Delivery Device Ventilator Type Vent Mode FiO2 Inspiratory Time PEEP Pressure Support Pressure Control EPAP IPAP BiPAP Sodium 138 Potassium 3.0 L Chloride 94 L Carbon Dioxide 39 H Anion Gap 5 BUN 22 Creatinine 0.83 Est GFR ( Amer) 110.2 Est GFR (Non-Af Amer) 91.1 BUN/Creatinine Ratio 26.5 H Glucose 111 H POC Glucose (mg/dL) 127 H 162 H Lactic Acid Calcium 8.2 L Magnesium 1.9 Troponin I 05/18/19 05/18/19 05/18/19 13:10 13:17 13:17 WBC RBC Hgb Hct MCV MCH MCHC RDW Plt Count MPV Neut % (Auto) Lymph % (Auto) [place] % (Auto) Eos % (Auto) Baso % (Auto) Absolute Neuts (auto) Absolute Lymphs (auto) Absolute Monos (auto) Absolute Eos (auto) Absolute Basos (auto) Absolute Nucleated RBC Nucleated RBC % Hem Pathologist Commnt Patient Temperature Not Reportable ABG pH 7.40 ABG pH (Temp Correct) Not Reportable ABG pCO2 57 H ABG pCO2 (Temp Corrct Not Reportable ABG pO2 79 L ABG pO2 (Temp Correct Not Reportable ABG HCO3 31.5 H ABG O2 Saturation 97.5 ABG Base Excess 8.5 H Respiration Rate Not Reportable O2 Delivery Device 15 lpm oxymask Ventilator Type Not Reportable Vent Mode Not Reportable FiO2 Not Reportable Inspiratory Time Not Reportable PEEP Not Reportable Pressure Support Not Reportable Pressure Control Not Reportable EPAP Not Reportable IPAP Not Reportable BiPAP Not Reportable Sodium 136 Potassium 3.9 Chloride 94 L Carbon Dioxide 36 H Anion Gap 6 BUN 21 Creatinine 0.94 Est GFR ( Amer) 95.5 Est GFR (Non-Af Amer) 78.9 BUN/Creatinine Ratio 22.3 H Glucose 171 H POC Glucose (mg/dL) Lactic Acid 2.4 H* Calcium 8.2 L Magnesium Troponin I 0.01 Impression: End stage COPD on 4-5 liters home 02 Hx ISMAEL not on AC 2/2 SDH DM HTN HFpEF with LVEF 60-65% Pulmonary HTN with PAP approx 44 (04/24) Hx of intubation Hx of urine pseudomonas Hx of hypothyroidism JANN Plan: patient at baseline respiratory status with normal ABG for him now IVF challenge for hypotension Hold BP medications for next 24 hours Patient does not need Diamox at moment. Patient's pH 7.40 presently hold all diuretics. Net negative 6 liters past several days continue to monitor in the ICU Critical Care Time: 67
[2019-05-18] MEDS: QUEtiapine TAB* 25 MG PO SCH (15:24)
[2019-05-18] MEDS ORDERED: KCL 20 MEQ/100 ML IVPREMIX* 20 MEQ/100 ML BAG IV ONE (18:30)
[2019-05-18] MEDS: Ondansetron INJ* 2 MG/ML VIAL IV PRN (19:02)
[2019-05-18] MEDS: Tamsulosin CAP* 0.4 MG PO SCH (20:23)
[2019-05-19] MEDS: Levothyroxine TAB* 50 MCG TAB PO SCH (05:28)
[2019-05-19 05:34] LABS: BUN/Creatinine Ratio 21.6 (8-20); Calcium 7.8 mg/dL (8.6-10.3); EGFR African American 125.8 (>60); Potassium 3.8 mmol/L (3.5-5.0)
[2019-05-19] MEDS: Insulin LISPRO* 1 UNITS UNIT SUBCUT SCH ×3 (07:36→17:53)
[2019-05-19] MEDS: SPIRIVA Respimat* (tiotropium) 2.5 mcg/inh Inhaler INH SCH (07:53)
[2019-05-19] MEDS: Mometasone/Formoter 200/5 MDI INH SCH ×2 (07:53→20:35)
[2019-05-19] MEDS: Atorvastatin* 10 MG TAB PO SCH (08:04)
[2019-05-19] MEDS: Sertraline* 50 MG TAB PO SCH (08:04)
[2019-05-19] MEDS: Famotidine TAB* 20 MG PO SCH ×2 (08:04→21:32)
[2019-05-19] MEDS: Folic Acid TAB* 1 MG PO SCH (08:04)
[2019-05-19] MEDS: Magnesium Oxide TAB* 400 MG PO SCH (08:04)
[2019-05-19] MEDS: Pantoprazole TAB * 40 MG TAB PO SCH (08:04)
[2019-05-19] MEDS: Diltiazem CD CAP* 180 MG PO SCH (08:04)
[2019-05-19] MEDS: Nystatin CREAM* 15 GM TUBE TOPICAL SCH ×2 (08:05→21:33)
[2019-05-19] MEDS: Cefepime 1 GM in Dextrose(*) 1 GM/50 ML BAG IV SCH ×2 (08:06→21:32)
[2019-05-19] MEDS: Acetaminophen TAB* 325 MG PO PRN (10:28)
--- NOTE | 2019-05-19 11:54 | PN ---
Date of Service: 05/19/19 Critical Care Services: remains on NC. Oxygenation WNL. At baseline No longer hypotensive. Vital Signs: Temp Pulse Resp BP SpO2 FiO2 97.3 F 95 10 123/100 96 70 05/19/19 07:36 05/19/19 10:01 05/19/19 10:01 05/19/19 10:01 05/19/19 10:01 05/19 07:52 Physical Exam: Gen: Sitting up in bed. Family at bedside. Conversational. NAD HEENT: EOMI Lungs: Decreased BS"s Cardiac: RRR Abdomen: +BS's, soft, NTP. No rebound or guarding Extremities: No JOANN Neuro: No focal deficits Fluid Balance (Past 24 Hours): I= O= Net Intake & Output 05/17/19 05/18/19 05/19/19 05/20/19 06:59 06:59 06:59 06:59 Intake Total 4713 497 3135 360 Output Total 3175 3775 1800 Balance -1553 -3065 242 360 Weight 256 lb 9.6 oz 244 lb 1.6 oz 251 lb 5.231 oz Intake: IV Fluids 200 30 729 ABX - CEFEPIME 30 30 NS (0.9%) 729 Potassium 170 IVPB 272 50 353 ABX - CEFEPIME 112 50 150 Potassium 160 203 Oral 1150 630 960 360 Output: Urine 1775 2600 [place] 1400 1175 1800 Other: Estimated Void Large Large # Bowel Movements 1 Estimated Stool Amount Small # Voids 1 1 Labs: Laboratory Results - last 24 hr 05/17/19 05/18/19 05/18/19 05:55 13:10 13:17 Hem Pathologist Commnt Patient Temperature Not Reportable ABG pH 7.40 ABG pH (Temp Correct) Not Reportable ABG pCO2 57 H ABG pCO2 (Temp Corrct Not Reportable ABG pO2 79 L ABG pO2 (Temp Correct Not Reportable ABG HCO3 31.5 H ABG O2 Saturation 97.5 ABG Base Excess 8.5 H Respiration Rate Not Reportable O2 Delivery Device 15 lpm oxymask Ventilator Type Not Reportable Vent Mode Not Reportable FiO2 Not Reportable Inspiratory Time Not Reportable PEEP Not Reportable Pressure Support Not Reportable Pressure Control Not Reportable EPAP Not Reportable IPAP Not Reportable BiPAP Not Reportable Sodium 136 Potassium 3.9 Chloride 94 L Carbon Dioxide 36 H Anion Gap 6 BUN 21 Creatinine 0.94 Est GFR ( Amer) 95.5 Est GFR (Non-Af Amer) 78.9 BUN/Creatinine Ratio 22.3 H Glucose 171 H POC Glucose (mg/dL) Lactic Acid Calcium 8.2 L Troponin I 0.01 05/18/19 05/18/19 05/18/19 13:17 16:17 17:46 Hem Pathologist Commnt Patient Temperature ABG pH ABG pH (Temp Correct) ABG pCO2 ABG pCO2 (Temp Corrct ABG pO2 ABG pO2 (Temp Correct ABG HCO3 ABG O2 Saturation ABG Base Excess Respiration Rate O2 Delivery Device Ventilator Type Vent Mode FiO2 Inspiratory Time PEEP Pressure Support Pressure Control EPAP IPAP BiPAP Sodium Potassium Chloride Carbon Dioxide Anion Gap BUN Creatinine Est GFR ( Amer) Est GFR (Non-Af Amer) BUN/Creatinine Ratio Glucose POC Glucose (mg/dL) 210 H Lactic Acid 2.4 H* 1.5 Calcium Troponin I 05/19/19 05/19/19 05:12 07:35 Hem Pathologist Commnt Patient Temperature ABG pH ABG pH (Temp Correct) ABG pCO2 ABG pCO2 (Temp Corrct ABG pO2 ABG pO2 (Temp Correct ABG HCO3 ABG O2 Saturation ABG Base Excess Respiration Rate O2 Delivery Device Ventilator Type Vent Mode FiO2 Inspiratory Time PEEP Pressure Support Pressure Control EPAP IPAP BiPAP Sodium 138 Potassium 3.8 Chloride 102 Carbon Dioxide 34 H Anion Gap 2 BUN 16 Creatinine 0.74 Est GFR ( Amer) 125.8 Est GFR (Non-Af Amer) 104.0 BUN/Creatinine Ratio 21.6 H Glucose 112 H POC Glucose (mg/dL) 120 H Lactic Acid Calcium 7.8 L Troponin I Impression: End stage COPD on 4-5 liters home 02 Hx ISMAEL not on AC 2/2 SDH DM HTN HFpEF with LVEF 60-65% Pulmonary HTN with PAP approx 44 (04/24) Hx of intubation Hx of urine pseudomonas Hx of hypothyroidism JANN Plan: Plan: patient at baseline respiratory and does not require Bi-Pap hold off on further diuretics 2/2 hypotension continue to hold Blood pressure medications Patient does not need Diamox at moment since well compensated patient can transfer to floor. would consult pulmonary on the floor. Critical Care Time: 56
--- NOTE | 2019-05-19 12:49 | PN ---
Subjective Date of Service: 05/19/19 Interval History: Patient is very anxious to get out of the hospital. Patient denies any F/C, SOB , Cough, F/C, VYAS, dizziness, palpitations, CP, Abdominal pain, diarrhea, or other pain. Patient states "I Have slept my whole life, why don't you want me to sleep now?" Patient very odd and somewhat non-sensical at times. Family History: Unchanged from Admission Social History: Unchanged from Admission Past Medical History: Unchanged from Admission Objective Active Medications: Acetaminophen (Tylenol Tab*) 650 mg PO Q4H PRN PRN Reason: mild to moderate pain Last Admin: 05/19/19 10:28 Dose: 650 mg Albuterol/Ipratropium (Duoneb (Albuterol 2.5 Mg/Ipratropium 0.5 Mg)) 1 neb INH Q4H PRN PRN Reason: WHEEZING Atorvastatin Calcium (Lipitor*) 10 mg PO DAILY [facility] Last Admin: 05/19/19 08:04 Dose: 10 mg Dextrose (Dextrose 50% Vial 50 Ml*) 25 ml IV PUSH .FOR FS < 60 - SS PRN PRN Reason: FS < 60 Diltiazem HCl (Cardizem Cd Cap*) 180 mg PO DAILY [facility] Last Admin: 05/19/19 08:04 Dose: 180 mg Famotidine (Pepcid Tab*) 20 mg PO BID [facility] Last Admin: 05/19/19 08:04 Dose: 20 mg Folic Acid (Folvite Tab*) 1 mg PO DAILY [facility] Last Admin: 05/19/19 08:04 Dose: 1 mg Cefepime HCl (Maxipime 1 Gm In Dextrose Duplex (*)) 1 gm in 50 mls @ 100 mls/ hr IV 0900,2100 [facility] Last Admin: 05/19/19 08:06 Dose: 100 mls/hr Insulin Human Lispro (Humalog*) 0 units SUBCUT AC [facility]; Protocol Last Admin: 05/19/19 11:57 Dose: 9 units Levothyroxine Sodium (Synthroid Tab*) 50 mcg PO DAILY@0600 [facility] Last Admin: 05/19/19 05:28 Dose: 50 mcg Magnesium Oxide (Magox 400 Tab*) 800 mg PO DAILY [facility] Last Admin: 05/19/19 08:04 Dose: 800 mg Mometasone Furoate/Formoterol Fumar (Dulera 200/5 Mdi*) 2 puff INH BID [facility] Last Admin: 05/19/19 07:53 Dose: 2 puff Nystatin (Nystatin Cream*) 1 applic TOPICAL BID [facility] Last Admin: 05/19/19 08:05 Dose: 1 applic Ondansetron HCl (Zofran Inj*) 4 mg IV Q4H PRN PRN Reason: NAUSEA Last Admin: 05/18/19 19:02 Dose: 4 mg Pantoprazole Sodium (Protonix Tab*) 40 mg PO DAILY [facility] Last Admin: 05/19/19 08:04 Dose: 40 mg Quetiapine Fumarate (Seroquel Tab*) 25 mg PO Q24H [facility] Last Admin: 05/18/19 15:24 Dose: 25 mg Sertraline HCl (Zoloft*) 50 mg PO DAILY [facility] Last Admin: 05/19/19 08:04 Dose: 50 mg Simethicone (Mylicon Tab*) 80 mg PO Q6H PRN PRN Reason: abdomen pain Tamsulosin HCl (Flomax Cap*) 0.4 mg PO BEDTIME [facility] Last Admin: 05/18/19 20:23 Dose: 0.4 mg Tiotropium [place] (Spiriva Respimat 2.5 Mcg) 2 puff INH DAILY [facility] Last Admin: 05/19/19 07:53 Dose: 2 puff Vital Signs - 8 hr 05/19/19 05/19/19 05/19/19 04:45 05:00 05:15 Temperature Pulse Rate 82 85 88 Respiratory 11 13 14 Rate Blood Pressure 129/78 121/74 142/91 (mmHg) O2 Sat by Pulse 97 97 97 Oximetry 05/19/19 05/19/19 05/19/19 05:30 05:45 06:00 Temperature Pulse Rate 90 88 82 Respiratory 15 13 9 Rate Blood Pressure 135/98 142/100 153/95 (mmHg) O2 Sat by Pulse 92 94 98 Oximetry 05/19/19 05/19/19 05/19/19 06:15 06:30 06:45 Temperature Pulse Rate 75 79 74 Respiratory 12 11 11 Rate Blood Pressure 123/88 116/87 123/88 (mmHg) O2 Sat by Pulse 97 97 98 Oximetry 05/19/19 05/19/19 05/19/19 07:00 07:16 07:30 Temperature Pulse Rate 87 91 82 Respiratory 16 15 15 Rate Blood Pressure 147/96 128/81 148/93 (mmHg) O2 Sat by Pulse 98 96 99 Oximetry 05/19/19 05/19/19 05/19/19 07:36 07:45 07:54 Temperature 97.3 F Pulse Rate 87 79 Respiratory 12 14 Rate Blood Pressure 133/117 (mmHg) O2 Sat by Pulse 99 98 Oximetry 05/19/19 05/19/19 05/19/19 08:00 09:00 10:00 Temperature Pulse Rate 85 86 91 Respiratory 9 16 15 Rate Blood Pressure 154/92 (mmHg) O2 Sat by Pulse 98 95 97 Oximetry 05/19/19 10:01 Temperature Pulse Rate 95 Respiratory 10 Rate Blood Pressure 123/100 (mmHg) O2 Sat by Pulse 96 Oximetry Oxygen Devices in Use Now: Nasal Cannula Appearance: Patient is a 74yo male who appears stated age and is sitting in the bed in NAD. Eyes: No Scleral Icterus, PERRLA Ears/Nose/Mouth/Throat: NL Teeth, Lips, Gums, Clear Oropharnyx, Mucous Membranes Moist Neck: NL Appearance and Movements; NL JVP, Trachea Midline Respiratory: Symmetrical Chest Expansion and Respiratory Effort, - - Diminished in bases, Cardiovascular: NL Sounds; No Murmurs; No JVD, RRR, No Edema Abdominal: NL Sounds; No Tenderness; No Distention, No Hepatosplenomegaly Lymphatic: No Cervical Adenopathy Extremities: No Edema, No Clubbing, Cyanosis Skin: No Rash or Ulcers, No Nodules or Sclerosis Neurological: Alert and Oriented x 3, NL Sensation, NL Muscle Strength and Tone , - - CN II-XII intact. Result Diagrams: 05/18/19 04:53 05/19/19 05:12 Additional Lab and Data: Lab Results Microbiology and Other Data: Microbiology 05/15/19 16:00 Nasal Screen MRSA (PCR) - Final Nasal Mrsa Not Detected Assess/Plan/Problems-Billing Assessment: 74 yo white male with PMHx Afib not on AC due to recent subdural hematoma, DMT2 , HTN, HFpEF, and COPD with recent exacerbation 2/2 PNA presents with bilateral LE edema and altered mental status. - Patient Problems (1) Acute on chronic heart failure with preserved ejection fraction Current Visit: Yes Status: Acute Code(s): I50.33 - ACUTE ON CHRONIC DIASTOLIC (CONGESTIVE) HEART FAILURE SNOMED Code(s): 942650719 Comment: - Presents with bilateral LE edema - Hailee Antoine RN reports patient was compliant with medications since he has been there for TOBY, likely needs po lasix increase at discharge - Close to chronic 2L O2. - Lungs clear, LE edema improved - Diuretics on hold due to hypotension yesterday. - Resume diuretics tomorrow (2) COPD (chronic obstructive pulmonary disease) Current Visit: Yes Status: Acute Code(s): J44.9 - CHRONIC OBSTRUCTIVE PULMONARY DISEASE, UNSPECIFIED SNOMED Code(s): 75750870 Comment: - With chronic hypoxic and hypercarbic respiratory failure - Not in acute exacerbation, titrate to low 90s. - Continue triple inhaler therapy - Was previously on 2L O2, recently D/C'd on 5-6L, will likely need a flow rate between these - No indication for steroids at this time. - Possibly contributed to AMS on admission. (3) Hypomagnesemia Current Visit: Yes Status: Acute Code(s): E83.42 - HYPOMAGNESEMIA SNOMED Code(s): 618750359 Comment: - Replace and recheck PRN. (4) Hypothyroidism Current Visit: Yes Status: Acute Code(s): E03.9 - HYPOTHYROIDISM, UNSPECIFIED SNOMED Code(s): 10643194 Comment: - Continue levothyroxine (5) UTI (urinary tract infection) Current Visit: Yes Status: Acute Comment: - Urine culture positive for pseudomonas - Continue cefepime, sensitive - Possibly contributed to the altered mental status at admission, however this seems resolved (6) Urinary retention Current Visit: Yes Status: Acute Code(s): R33.9 - RETENTION OF URINE, UNSPECIFIED SNOMED Code(s): 844882763 Comment: - Continue flomax, no signs of ongoing retention. (7) Atrial fibrillation Current Visit: No Status: Acute Code(s): I48.91 - UNSPECIFIED ATRIAL FIBRILLATION SNOMED Code(s): 91134925 Comment: - Chronic, anicoagulation stopped due to SDH - Continue diltiazem and carvedilol - Overall rate controlled, at times with HR tachycardic to low 100s but not symptomatic - Treating JANN may help with rate control. (8) DM2 (diabetes mellitus, type 2) Current Visit: No Status: Acute Comment: - A1c 7.1 indicating good control for his age - On metformin at home which is on hold - Continue lispro SS in the hospital - Relatively good control (9) JANN (obstructive sleep apnea) Current Visit: No Status: Acute Code(s): G47.33 - OBSTRUCTIVE SLEEP APNEA ( ADULT) (PEDIATRIC) SNOMED Code(s): 57601568 Comment: - With Chronic Hypercarbic respiratory failure - Due to unclear reasons was not receiving ordered BiPAP at [place] for [facility] since discharge from [facility] 05/10/19 - Continue BiPAP O/N (10) Full code status Current Visit: Yes Status: Acute Code(s): Z78.9 - OTHER SPECIFIED HEALTH STATUS SNOMED Code(s): 581469870 Status and Disposition: pending further medical improvement. Came from [facility] at [place] and has been accepted to [facility] at [facility]. Hopeful D/C in the next 1-2 days.
[2019-05-19] MEDS: QUEtiapine TAB* 25 MG PO SCH (13:32)
[2019-05-19] MEDS: Ondansetron INJ* 2 MG/ML VIAL IV PRN (18:50)
[2019-05-19] MEDS: Tamsulosin CAP* 0.4 MG PO SCH (21:32)
[2019-05-19] MEDS: Carvedilol TAB* 6.25 MG PO SCH (21:32)
[2019-05-20] MEDS: Levothyroxine TAB* 50 MCG TAB PO SCH (05:10)
[2019-05-20 05:58] LABS: ABS Eosinophils 0.2 10^3/ul (0-0.6); ABS Monocytes 0.5 10^3/ul (0-0.8); ABS Neutrophils 4.3 10^3/ul (1.5-7.7); Eosinophil % 3.5 %; Hematocrit 39 % (42-52); Hemoglobin 12.7 g/dL (14.0-18.0); Mean Corpuscular HGB Conc 33 g/dL (31-36); Mean Corpuscular Hemoglobin 28 pg (27-31); Mean Corpuscular Volume 87 fL (80-94); Platelet Count 165 10^3/uL (150-450); Red Cell Distribution Width 14 % (10-15)
[2019-05-20 06:14] LABS: BUN/Creatinine Ratio 24.1 (8-20); Calcium 8.5 mg/dL (8.6-10.3); EGFR African American 116.7 (>60); EGFR Non-African American 96.4 (>60); Potassium 3.7 mmol/L (3.5-5.0)
[2019-05-20] MEDS: SPIRIVA Respimat* (tiotropium) 2.5 mcg/inh Inhaler INH SCH (07:54)
[2019-05-20] MEDS: Mometasone/Formoter 200/5 MDI INH SCH (07:54)
[2019-05-20] MEDS: Magnesium Oxide TAB* 400 MG PO SCH (08:42)
[2019-05-20] MEDS: Famotidine TAB* 20 MG PO SCH (08:42)
[2019-05-20] MEDS: Folic Acid TAB* 1 MG PO SCH (08:43)
[2019-05-20] MEDS: Sertraline* 50 MG TAB PO SCH (08:44)
[2019-05-20] MEDS: Atorvastatin* 10 MG TAB PO SCH (08:44)
[2019-05-20] MEDS: Carvedilol TAB* 6.25 MG PO SCH (08:44)
[2019-05-20] MEDS: Pantoprazole TAB * 40 MG TAB PO SCH (08:45)
[2019-05-20] MEDS: Insulin LISPRO* 1 UNITS UNIT SUBCUT SCH ×2 (08:45→11:28)
[2019-05-20] MEDS: Diltiazem CD CAP* 180 MG PO SCH (08:45)
[2019-05-20] MEDS: Nystatin CREAM* 15 GM TUBE TOPICAL SCH (08:46)
[2019-05-20] MEDS: Cefepime 1 GM in Dextrose(*) 1 GM/50 ML BAG IV SCH (08:49)
[2019-05-20] MEDS ORDERED: Furosemide TAB* 20 MG PO SCH ×2 (09:00)
[2019-05-20] MEDS: Ondansetron INJ* 2 MG/ML VIAL IV PRN (11:44)
[2019-05-20] MEDS: QUEtiapine TAB* 25 MG PO SCH (12:41)
--- NOTE | 2019-05-20 14:15 | DS ---
CC: Sylvie Parish NP; [facility] * DATE OF ADMISSION: 05/15/2019. DATE OF DISCHARGE: 05/20/2019. PRIMARY CARE PROVIDER: Sylvie Parish NP. ATTENDING PHYSICIAN: Dr. Kaiyt Pickens * (dictated by ARI Montejo). PRIMARY DISCHARGE DIAGNOSES: 1. Acute on chronic hypercarbic respiratory failure due to hyperoxemia. 2. Acute metabolic encephalopathy due to hypercapnia, resolved. 3. Acute on chronic diastolic heart failure, resolved. 4. Fall. 5. Pseudomonas urinary tract infection. 6. Urinary retention, resolved. SECONDARY DISCHARGE DIAGNOSES: 1. Diabetes mellitus type 2. 2. Hypertension. 3. Atrial fibrillation. 4. Hypothyroidism. 5. COPD with chronic hypoxic respiratory failure. 6. Asthma. 7. GERD. 8. Pulmonary nodule. STUDIES DONE WHILE IN THE HOSPITAL: 1. Brain CT from 05/15/2019, read as: No acute intracranial pathology. 2. Cervical spine CT from 05/15/2019, read as: Degenerative disk disease and osteoarthritis. No acute osseous injury to the cervical spine. 3. EKG from 05/15/2019, read as: Atrial fibrillation, rate of 110, QTc of 461 , wandering baseline, left axis deviation, no segment elevation or depression, no obvious hypertrophy or enlargement. 4. Repeat EKG from 05/18/2019 shows diffuse T-wave inversions in the lateral leads, new from previous exam. 5. Chest x-ray from 05/15/2019, read as: Left basilar atelectasis versus consolidation. 6. Forearm x-ray from 05/15/2019, read as: No acute osseous injury. 7. Pelvis x-ray from 05/15/2019, read as: No acute osseous injury, osteoarthritis. 8. Chest x-ray from 05/08/2019, read as: Small pleural effusion. MEDICATIONS AT DISCHARGE: 1. Folic Acid 1 mg p.o. daily. 2. Synthroid 50 mcg p.o. daily. 3. Atorvastatin 10 mg p.o. daily. 4. Furosemide 20 mg p.o. daily. 5. Metformin 1,000 mg p.o. b.i.d. 6. Prilosec 20 mg p.o. daily. 7. Imdur 30 mg p.o. daily. 8. Colchicine 0.6 mg p.o. daily. 9. Famotidine 20 mg p.o. b.i.d. 10. Magnesium Oxide 800 mg p.o. daily. 11. Nystatin one application topical b.i.d. 12. Quetiapine 25 mg p.o. daily. 13. DuoNeb one inhalation q.4 hours as needed. 14. Dulera 200/5 two puffs inhalation b.i.d. 15. Sertraline 50 mg p.o. daily. 16. Tylenol 1,000 mg p.o. t.i.d. 17. Diltiazem 120 mg p.o. daily. 18. Ciprofloxacin 500 mg p.o. b.i.d. times 6 doses. 19. Lactobacillus Acidophilus one tab p.o. daily. 20. Simethicone 80 mg p.o. q.6 hours as needed. 21. Tamsulosin 0.4 mg p.o. at bedtime. 22. Spiriva one cap inhalation daily. 23. Carvedilol 25 mg p.o. daily. NEW MEDICATION AT DISCHARGE: Cipro, lactobacillus, Simethicone, Flomax, Tiotropium, Carvedilol. MEDICATIONS DISCONTINUED AT DISCHARGE: Prednisone 10 mg p.o. daily, Carvedilol 50 mg p.o. b.i.d. HOSPITAL COURSE: This is a brief summary of the patient's presentation. For more details, please see the history and physical from ARI Melendez on 05/15/2019. In brief, the patient is a 74-year-old male with a past medical history significant for the above who was recently admitted to the hospital, intubated due to hypoxic respiratory failure, in that time developed MSSA pneumonia and had anticoagulation for his atrial fibrillation, discontinued due to chronic hygromas in his brain. The patient was deconditioned through his hospital stay and was discharged to [facility]. The patient was discharged on 5 to 6 liters of oxygen with no weaning protocol. The patient, while at rehab, got more encephalopathic and had several falls and was sent back to the hospital, and was found to have severely elevated carbon dioxide. The patient was admitted to the hospital with concern for metabolic encephalopathy from his hypercarbic respiratory failure, as well as heart failure exacerbation. The patient was diuresed aggressively during this. The patient's carbon dioxide level on his BMP went as high as 41 and his PCO2 on his ABG as high as 77. The patient had significant negative weight during his hospitalization with his greatest weight gain being noted to be 20 pounds. This is more likely approximately 12 pounds. The patient diuresed well. He had lower extremity edema, resolved. The patient was maintained on high levels of oxygen of 3 to 4 liters with his oxygen saturations being near 100 percent through the vast portion of his hospitalization. The patent on 05/18/2019 was noted to have significant altered mental status, hypoxia, hypotension, and was transferred to the ICU for BiPAP and fluids. These both resolved quickly. The patient, however, was only able to tolerate BiPAP for a short period of time. He did not tolerate it overnight and repeatedly refused it while in the hospital. The patient was found to have a pseudomonas urinary tract infection during his hospitalization and though the patient was initially treated and placed on antibiotics, this was transitioned to Cefepime which was appropriate coverage on 05/17/2019. The patient's mental status improved greatly during his time in the ICU as did his oxygen requirements. He was able to taper down to 2 liters of oxygen with his oxygen saturation still staying in the mid 90s. The patient carbon dioxide level on his BMP improved significantly, being down to 34 on May 19 and not worsening despite lack of BiPAP overnight from the to the . The patient was found again to have physical therapy needs, but did not want to go back to [facility] and he accepted a bed to [facility]. The patient had some abdominal pain with bowel movements, but with small diarrheal bowel movements on the morning of 05/20/2019, but his abdominal pain decreased significantly throughout the day. The patient was stable and amenable for discharge on 05/20/2019 to [facility]. PHYSICAL EXAMINATION ON THE DAY OF DISCHARGE: General: The patient is a 74- year- old male who appears stated age and sitting in bed, in no acute distress. Vital Signs: Temperature 98.3, pulse rate 90, respiratory rate 16, oxygen saturation 94 percent on two liters, blood pressure 135/86. HEENT: Head normocephalic, atraumatic. Sclerae anicteric. No conjunctival injection. Nasal mucosa moist. Oral mucosa moist. No pharyngeal erythema, discharge, or exudate. Neck: Supple, nontender. No lymphadenopathy. Unable to assess JVD. Cardiac: Irregularly irregular rate and rhythm. No clicks, murmurs, gallops, or rubs. Pulses are 2+ in the bilateral dorsalis pedis, posterior tibialis, and radial areas. 2+ bilateral pitting edema in the feet and ankles, not in the calves. Respiratory: Clear to auscultation bilaterally. No wheezes, rales , or rhonchi diminished. Abdomen: Soft, nontender, nondistended. Bowel sounds are present. Normoactive in all four quadrants. No hepatosplenomegaly. No abdominal bruits auscultated. No hepatojugular reflux. Genitourinary: No suprapubic or CVA tenderness. Skin: Clean, dry, and intact. No rashes. Neuro : Cranial nerves II through XII intact. No focal deficits. Alert and oriented times three. Psychiatric: Pleasant and cooperative. DISCHARGE PLAN BY PROBLEM: 1. Acute on chronic hypoxic respiratory failure due to hyperoxemia. This was likely due to the patient being discharged on a much higher dose of oxygen than was needed long-term likely causing CO2 retention, encephalopathy and falls leading to his return to the hospital. The patient was weaned onto his home dose of 2 liters of oxygen. 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 The patient does not need acute BiPAP therapy at this time. The patient appears euvolemic and is not being volume contracted. The patient is not in COPD exacerbation at this time and needs no additional therapy for this. 2. Urinary tract infection due to pseudomonas. This possibly was contributing to the patient's metabolic encephalopathy. This has improved greatly during his hospitalization and on Cefepime. The patient will be transitioned to Ciprofloxacin to which his bacterium is sensitive for a total of three more days for a total of seven days total treatment. 3. Hypertension: The patient was markedly hypotensive likely due over diuresis. The patient's blood pressure is now on the high end of normal. The patient will be continued on a decrease dose of Carvedilol, a decreased dose of his Diltiazem, and will be resumed on his Imdur and his Furosemide as well. The patient's blood pressure should be monitored and his blood pressure medication should be titrated at [facility]. 4. Urinary retention: The patient was found to be retaining urine. The patient was given a Bacon catheter and was started on Tamsulosin and this resolved. The patient has been voiding normally. 5. COPD: The patient was started on triple inhaler therapy and is on oxygen as above due to chronic hypoxic respiratory failure. 6. Hyperlipidemia: Continue the patient's Lipitor. 7. GERD: Continue the patient's Famotidine. 8. Diabetes mellitus type 2: Continue patient's Metformin. The patient should be continued with routine BMP's and hemoglobin A1c. 9. Infiltrate on chest x-ray: This likely represents the patient's previous pneumonia and not a new event. 10. Chronic hygromas: The patient has no signs of neurologic deterioration concerning for intracranial bleed. 11. Patient had a small incidentally noted Pulmonary nodule in his lungs on CT from [facility]. This should be followed up within an appropriate period fo time via his primary care provider. DISPOSITION: To [facility]. DIET: Heart-healthy, caffeine okay, low sodium. CONDITION ON DISCHARGE: Stable. TIME SPENT: Approximately 60 minutes were spent on the discharge of this patient, 30 of which was spent [id number] with the patient obtaining history and physical and discussing the treatment plan. ARI MONTEJO [id number]/MIGUELINA #: [id number] SAMAN
[2019-05-20 14:39] VITALS: BP 140/88
== END 2019-05-20 14:15 | DRG 189 ==
LOC: ED 09:28 → MED 12:33 → ICU 05-16 10:27 → MEDTELE 05-17 02:34 → ICU 05-18 14:15 → MEDTELE 05-19 13:02
PROVIDERS: ADMIT Internal Medicine; ATTEND Hospitalist
PROC: 5A09357 Assistance with Respiratory Ventilation, Less than 24 Consecutive Hours, Continuous Positive Airway Pressure (ICD-10-PCS; principal; 2019-05-18)
DX: J96.22 Acute and chronic respiratory failure with hypercapnia (principal); G93.41 Metabolic encephalopathy; I50.33 Acute on chronic diastolic (congestive) heart failure; N39.0 Urinary tract infection, site not specified; G96.0 Cerebrospinal fluid leak; E11.9 Type 2 diabetes mellitus without complications; I11.0 Hypertensive heart disease with heart failure; I48.91 Unspecified atrial fibrillation; J44.9 Chronic obstructive pulmonary disease, unspecified; M50.30 Other cervical disc degeneration, unspecified cervical region; E03.9 Hypothyroidism, unspecified; K21.9 Gastro-esophageal reflux disease without esophagitis; E66.9 Obesity, unspecified; B96.5 Pseudomonas (aeruginosa) (mallei) (pseudomallei) as the cause of diseases classified elsewhere; S50.12XA Contusion of left forearm, initial encounter; J96.21 Acute and chronic respiratory failure with hypoxia; W19.XXXA Unspecified fall, initial encounter; G47.33 Obstructive sleep apnea (adult) (pediatric); E83.42 Hypomagnesemia; R33.9 Retention of urine, unspecified; I95.9 Hypotension, unspecified; I27.20 Pulmonary hypertension, unspecified; M47.812 Spondylosis without myelopathy or radiculopathy, cervical region; R91.1 Solitary pulmonary nodule; R29.6 Repeated falls; Y92.009 Unspecified place in unspecified non-institutional (private) residence as the place of occurrence of the external cause; Z87.891 Personal history of nicotine dependence; Z99.81 Dependence on supplemental oxygen; Z72.89 Other problems related to lifestyle; Z68.34 Body mass index [BMI] 34.0-34.9, adult; Z91.19 Patient's noncompliance with other medical treatment and regimen; Z79.84 Long term (current) use of oral hypoglycemic drugs; Z79.899 Other long term (current) drug therapy
CPT/HCPCS: 36415; 36600; 70450; 71045; 72125; 72170; 80048; 80053; 81003; 81015; 82550; 82803; 83036; 83605; 83735; 83880; 84443; 84484; 85025; 85060; 87077; 87086; 87186; 87641; 93005; 94640; 94660; 96374; 99284; A9270-GY; J0692; J1120; J1630; J1644; J1940; J2270; J2405; J3475; J3480; J3535; J7512

== ENCOUNTER 2019-06-04 09:06 | Inpatient (IN) | payer MEDICARE, OTHER ==
--- NOTE | 2019-06-04 09:24 | ED ---
Shortness of Breath - HPI Summary HPI Summary: 74 year old male presents to the ED by EMS for shortness of breath starting several days ago. Per EMS, patient was at [facility] for rehab due to a fall sustained several weeks ago. Patient has COPD and is normally on O2. He woke up this morning with severe shortness of breath. Per patient, he has had difficulty breathing every morning for the past several days. He reports vomiting every morning after breakfast. Patient also notes edema in his legs bilaterally for the past several weeks that has resolved over the last several days. He denies diarrhea and abdominal pain. PMHx of DM, HTN, and asthma. Pt is a former tobacco smoker. He does not drink alcohol. - History of Current Complaint Time Seen by Provider: 06/04/19 09:07 Hx Obtained From: Patient, EMS Onset/Duration: Sudden Onset, Lasting Days, Still Present Dyspnea At: Rest Alleviating Factors: Oxygen Associated Signs & Symptoms: Edema - Allergy/Home Medications Allergies/Adverse Reactions: Allergies Allergy/AdvReac Type Severity Reaction Status Date / Time No Known Allergies Allergy Verified 06/04/19 09:17 Home Medications: Home Medications Budesonide/Formote 160/4.5(NF) [Symbicort 160/4.5 (NF)] 2 puff INH BID 06/04/19 [History Confirmed 06/04/19] Calcium Carbonate [Tums Ultra 1000] 1,000 mg PO Q6H PRN 06/04/19 [History Confirmed 06/04/19] Finasteride TAB* [Proscar TAB*] 5 mg PO DAILY 06/04/19 [History Confirmed ] Methyl Salicylate/Menthol [Bengay Greaseless Cream] 1 applic TOPICAL DAILY 06/04 [History Confirmed 06/04/19] Ondansetron ODT TAB* [Zofran 4 MG Odt TAB*] 4 mg PO Q6H PRN 06/04/19 [History Confirmed 06/04/19] PMH/Surg Hx/FS Hx/Imm Hx Endocrine/Hematology History: Reports: Hx Diabetes Denies: Hx Anticoagulant Therapy, Hx Thyroid Disease Cardiovascular History: Reports: Hx Hypertension, Other Cardiovascular Problems/ Disorders - afib Denies: Hx Pacemaker/ICD Respiratory History: Reports: Hx Asthma, Hx Chronic Obstructive Pulmonary Disease (COPD) - YES 02 DEPENDENT AT HOME, Other Respiratory Problems/Disorders - Agent orange exposure History: Denies: Hx Renal Disease Sensory History: Reports: Hx Contacts or Glasses Denies: Hx Hearing Aid Opthamlomology History: Reports: Hx Contacts or Glasses Neurological History: Denies: Hx Dementia, Hx Seizures Psychiatric History: Denies: Hx Panic Disorder, Hx Substance Abuse - Surgical History Surgery Procedure, Year, and Place: None Infectious Disease History: No Infectious Disease History: Denies: Hx Hepatitis, Hx Human Immunodeficiency Virus (HIV), Traveled Outside the [place] in Last 30 Days - Family History Known Family History: Negative: Diabetes - Social History Alcohol Use: None Hx Substance Use: No Substance Use Type: Reports: None Hx Tobacco Use: Yes Smoking Status (MU): Former Smoker Review of Systems Negative: Fever Positive: Shortness Of Breath Positive: Vomiting. Negative: Abdominal Pain All Other Systems Reviewed And Are Negative: Yes Physical Exam - Summary Physical Exam Summary: Constitutional: Well-developed, Well-nourished, Alert. (-) Distressed. Skin: Warm, Dry HENT: Normocephalic; Atraumatic Eyes: Conjunctiva normal Neck: Musculoskeletal ROM normal neck. (-) JVD, (-) Stridor, (-) Tracheal deviation Cardio: Rhythm regular, rate normal, Heart sounds normal; Intact distal pulses; The pedal pulses are 2+ and symmetric. Radial pulses are 2+ and symmetric. (-) Murmur Pulmonary/Chest wall: Effort normal. (-) Respiratory distress, (-) Wheezes, (-) Rales Abd: Soft, (-) tenderness, (-) Distension, (-) Guarding, (-) Rebound Musculoskeletal: Edema bilaterally lower extremities. Lymph: (-) Cervical adenopathy Neuro: Alert, Oriented x3 Psych: Mood and affect Normal Triage Information Reviewed: Yes Vital Signs On Initial Exam: Initial Vitals Temp Pulse Resp BP Pulse Ox 98.7 F 86 16 151/108 94 06/04/19 09:14 06/04/19 09:14 06/04/19 09:14 06/04/19 09:14 06/04/19 09:14 Vital Signs Reviewed: Yes Procedures - Sedation Patient Received Moderate/Deep Sedation with Procedure: No Diagnostics - Vital Signs Vital Signs Temp Pulse Resp BP Pulse Ox 06/04/19 09:14 98.7 F 86 16 151/108 94 - Laboratory Result Diagrams: 06/04/19 09:40 06/04/19 09:39 Lab Statement: Any lab studies that have been ordered have been reviewed, and results considered in the medical decision making process. - Radiology CXR Radiology Interpretation Completed By: Radiologist Summary of Radiographic Findings: CXR IMPRESSION: 1. Elevated lung volumes corresponding with history of obstructive lung disease. No acute cardiopulmonary process evident. An ED physician has reviewed this report. - CT C/T CT CT Interpretation Completed By: Radiologist Summary of CT Findings: CHEST IMPRESSION: 1. Borderline suboptimal contrast opacification and motion artifact mildly degrades the CT pulmonary angiogram. No compelling filling defects are identified from the main to the segmental and where visible subsegmental pulmonary arteries to indicate pulmonary embolism. 2. Suggestion of mild pulmonary vascular congestion with small pleural effusions and passive reflux of contrast to the liver. 3. Suggestion of potential long segment mural thickening of the esophagus. Correlate for potential symptoms of esophagitis consider follow-up esophagram or upper GI for further assessment if deemed clinically appropriate. 4. Multiple mediastinal lymph nodes with a few mildly enlarged nodes. An ED physician has reviewed this report. - EKG No standard instances Cardiac Rate: NL EKG Rhythm: Atrial Fibrillation ST Segment: Normal Ectopy: None - A-fib, rate 87 Summary of EKG Findings: An ED physician has interpreted and reviewed this ECG. Course/Dx - Course Course Of Treatment: 74 year old male presents to the ED by EMS for shortness of breath starting several days ago. Per EMS, patient was at [facility] for rehab due to a fall sustained several weeks ago. Patient has COPD and is normally on O2. He woke up this morning with severe shortness of breath. Per patient, he has had difficulty breathing every morning for the past several days. He reports vomiting every morning after breakfast. Patient also notes edema in his legs bilaterally for the past several weeks that has resolved over the last several days. He denies diarrhea and abdominal pain. PMHx of DM, HTN, and asthma. Pt is a former tobacco smoker. He does not drink alcohol. Bilateral edema in lower extremities noted on physical. Patient's symptoms are alleviated by supplemental O2. CXR IMPRESSION: 1. Elevated lung volumes corresponding with history of obstructive lung disease. No acute cardiopulmonary process evident. EKG shows Afib. CHEST/THORAX CT IMPRESSION: 1. Borderline suboptimal contrast opacification and motion artifact mildly degrades the CT pulmonary angiogram. No compelling filling defects are identified from the main to the segmental and where visible subsegmental pulmonary arteries to indicate pulmonary embolism. 2. Suggestion of mild pulmonary vascular congestion with small pleural effusions and passive reflux of contrast to the liver. 3. Suggestion of potential long segment mural thickening of the esophagus. Correlate for potential symptoms of esophagitis consider follow-up esophagram or upper GI for further assessment if deemed clinically appropriate. 4. Multiple mediastinal lymph nodes with a few mildly enlarged nodes. During ED course patient was given albuterol, atorvastatin, carvedilol, dextrose, diltiazem, finasteride, folic acid, furosemide, heparin, insulin, iodixanol, isosorbide, lactobacillus, levothyroxine, magnesium oxide, fluids, Nystatin, ondansetron, pantoprazole, sertraline, simethicone, tamsulosin , and tiotropium. Diagnosis is CHF. Spoke to Dr. Galvez who recommends admission. Pt understands and agrees with this plan. - Diagnoses Provider Diagnoses: A-fib, CHF (congestive heart failure) - Physician Notifications Discussed Care of Patient With: Sia Galvez - Hospitalist Time Discussed With Above Provider: 13:57 Instructed by Provider To: Admit As Inpatient - Dr. Galvez recommends admitting patient to hospital. Admit/Transition Orders Completed By ED Provider: Yes Discharge ED - Sign-Out/Discharge Documenting (check all that apply): Patient Departure - admit All imaging exams completed and their final reports reviewed: Yes - Discharge Plan Condition: Stable Disposition: ADMITTED TO [facility] - Billing Disposition and Condition Condition: STABLE Disposition: Admitted to [facility] - Attestation Statements Document Initiated by Scribe: Yes Documenting Scribe: Williams Guan Provider For Whom Yaquelin is Documenting (Include Credential): Nahid Zhang DO Scribe Attestation: Williams Epps, josé miguelibed for Nahid Zhang DO on 06/04/19 at 1830. Status of Scribe Document: Viewed
[2019-06-04 09:49] LABS: ABS Eosinophils 0.1 10^3/ul (0-0.6); ABS Monocytes 0.5 10^3/ul (0-0.8); ABS Neutrophils 2.3 10^3/ul (1.5-7.7); Eosinophil % 2.6 %; Hematocrit 39 % (42-52); Hemoglobin 12.7 g/dL (14.0-18.0); Lymphocyte % 25.9 %; Mean Corpuscular HGB Conc 33 g/dL (31-36); Mean Corpuscular Hemoglobin 28 pg (27-31); Mean Corpuscular Volume 86 fL (80-94); Nucleated Red Blood Cells % 0.1; Platelet Count 160 10^3/uL (150-450); Red Cell Distribution Width 15 % (10-15); White Blood Count 3.9 10^3/uL (3.5-10.8)
[2019-06-04 09:58] LABS: Activated Partial Thrombo Time 23.6 seconds (26.0-38.0); INR 1.1 (0.82-1.09)
[2019-06-04 10:08] LABS: Albumin 3.5 g/dL (3.2-5.2); Albumin/Globulin Ratio 1.3 (1-3); BUN/Creatinine Ratio 15.9 (8-20); Calcium 8.7 mg/dL (8.6-10.3); EGFR African American 136.4 (>60); EGFR Non-African American 112.7 (>60); Globulin 2.6 g/dL (2-4); Potassium 3.7 mmol/L (3.5-5.0); Total Bilirubin 0.5 mg/dL (0.2-1.0); Total Protein 6.1 g/dL (6.4-8.9)
[2019-06-04 10:10] LABS: Troponin I 0.01 ng/mL (<0.03)
[2019-06-04] MEDS ORDERED: Furosemide IV* 10 MG/ML VIAL (40 MG) IV ONE (11:01)
[2019-06-04] MEDS ORDERED: Albuterol/Ipratropium NEB.SOL* Albuterol 2.5 MG/Ipratropium 0.5 MG 3 ML INH ONE (11:43)
[2019-06-04] MEDS ORDERED: NS 0.9% 500 ML* 500 ML IV ONE (12:35)
[2019-06-04] MEDS ORDERED: Iodixanol* (CONTRAST) 320 MG/ML 100 ML SDV IV ONE (12:52)
[2019-06-04] MEDS ORDERED: Ondansetron ODT TAB* 4 MG PO PRN (15:17)
[2019-06-04] MEDS ORDERED: Albuterol/Ipratropium NEB.SOL* Albuterol 2.5 MG/Ipratropium 0.5 MG 3 ML INH PRN (15:17)
[2019-06-04] MEDS ORDERED: Simethicone TAB* 80 MG TAB.CHEW PO PRN (15:17)
[2019-06-04] MEDS ORDERED: Dextrose 50% VIAL 50 ml IV PUSH PRN (15:25)
--- NOTE | 2019-06-04 16:58 | HP ---
CC: Sylvie Parish NP; Providers at [facility] MEDICINE HISTORY AND PHYSICAL: DATE OF ADMISSION: 06/04/19 PRIMARY CARE PHYSICIAN: Sylvie Parish NP ATTENDING PHYSICIAN: Dr. Sia Mathur * (dictation provided by Shi Muniz NP ). CHIEF COMPLAINT: Weakness and shortness of breath. HISTORY OF PRESENT ILLNESS: Mr. Stone is a 74-year-old male with a past medical history of diastolic congestive heart failure, COPD with chronic hypercapnic and hypoxic respiratory failure, on 2 L nasal cannula as well as non -insulin dependent diabetes, atrial fibrillation, hypothyroidism, who presents today to the hospital with concern for weakness and shortness of breath. Mr. Stone has been admitted to our hospital twice in the recent months, was first admitted on 04/29/19 to the intensive care unit for acute on chronic respiratory failure secondary to COPD. He was discharged on 05/10/19, but returned on 05/15/19 with altered mental status and a fall thought to be secondary to acute on chronic hypercapnic respiratory failure, metabolic encephalopathy due to the hypercapnia, diastolic heart failure and pseudomonas urinary tract infection with urinary retention. The patient was discharged on 05/20/19 to [facility]. The patient states that since being there, he has been deteriorating slowly. He has had worsening shortness of breath and increasing lower extremity edema. He states that he wears 2 L nasal cannula during the day only and does not wear his prescribed BiPAP or oxygen at all at night. He notes that over the same time course that he has been admitted to the hospital here with us since April that he has developed new nausea and vomiting in the a.m. He describes vomiting after he takes one bite of food in the morning, but then is able to tolerate oral intake as the day progresses. He is not exactly sure when this started, but from the report it sounds like it was around April. The patient denies abdominal pain. He has no diarrhea, no constipation. He does endorse worsening lower extremity edema. He does endorse shortness of breath. He denies chest pain. He denies palpitations. His family confirmed that his mental status is at baseline. Please note that the patient was discharged without a Bacon after his last hospitalization, but due to urinary retention, the Bacon was replaced at [facility]. Mr. Stone today was found to be short of breath and more hypoxic than usual and refusing oral intake and therefore was brought to the hospital for evaluation via emergency medical services. In the emergency room, he is requiring 4 L nasal cannula to maintain O2 saturation greater than 90%. He is afebrile. He is not tachycardic. His blood pressure is on the higher side, running systolically 150 and diastolically about 110. He had a chest x-ray that showed no acute process, but chest thorax CTA confirmed some mild interstitial edema, but also of note has a concerning finding of long segment mural thickening of the esophagus as well as multiple mediastinal lymph nodes enlarged with largest one being 1.2 cm in the short axis. His EKG shows atrial fibrillation with no evidence of ischemia. His labs are unremarkable, though his BNP is elevated at 343. His troponin is 0.01 x2. His D-dimer is 611, but CTA of the chest was obtained and did not show pulmonary embolism. PAST MEDICAL HISTORY: 1. Chronic hypoxic and hypercapnic respiratory failure. 2. COPD. 3. Diastolic CHF. 4. Hypertension. 5. Non-insulin dependent diabetes. 6. Atrial fibrillation. 7. GERD. 8. Hypothyroidism. MEDICATIONS: 1. Ondansetron 4 mg p.o. q.6 hours p.r.n. 2. Calcium carbonate 1000 mg p.o. q.6 hours p.r.n. 3. Spiriva 1 cap inhaled daily. 4. Tamsulosin 0.4 mg p.o. at bedtime. 5. Symbicort 160/4.5 two puffs inhaled b.i.d. 6. Simethicone 80 mg p.o. q.6 hours p.r.n. 7. Sertraline 50 mg p.o. daily. 8. Omeprazole 20 mg p.o. daily. 9. Nystatin cream 1 application topically b.i.d. 10. Metformin 1000 mg p.o. b.i.d. 11. Magnesium oxide 800 mg p.o. daily. 12. Levothyroxine 50 mcg p.o. daily. 13. Lactobacillus 1 cap p.o. daily. 14. Isosorbide mononitrate ER 30 mg p.o. daily. 15. Furosemide 20 mg p.o. daily. 16. Folic acid 1 mg p.o. daily. 17. DuoNeb nebulizers 1 neb inhaled q.4 hours p.r.n. 18. Finasteride 5 mg p.o. daily. 19. Tylenol 1000 mg p.o. q.8 hours. 20. Diltiazem CD 120 mg p.o. daily. 21. Carvedilol 25 mg p.o. b.i.d. 22. Bengay cream p.r.n. 23. Atorvastatin 10 mg p.o. at bedtime. FAMILY HISTORY: The patient's mother had diabetes and history of heart failure. She related to heart failure. No known history for the father. No family history of cancer or stroke. SOCIAL HISTORY: The patient is a former smoker, but he has not smoked for 40 to 50 years. He used alcohol daily, but has not done so in the last 2 to 5 weeks. As reported, the patient was a nightly marijuana smoker. 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 His surrogate decision-maker is his friend, Mike, but also Марина Marroquin, his sister. REVIEW OF SYSTEMS: A 14-point review of systems was completed with Mr. Stone and all those not mentioned above are negative. PHYSICAL EXAMINATION GENERAL: Mr. Stone is lying in the bed. He is in no acute distress. His family is at the bedside. VITAL SIGNS: Temperature 98.7, pulse rate 90, respiratory rate 15, O2 saturation 96% on 4 L nasal cannula, blood pressure 137/103. LUNGS: Diminished in the bases with fine expiratory crackles, but no accessory muscle use and good aeration. HEART: S1, S2. No murmur, rub, or gallop and regular. ABDOMEN: Soft, nontender with bowel sounds positive x4. EXTREMITIES: No cyanosis. Positive for 2+ pitting edema. NEUROLOGIC: He is alert. He is oriented x3. He moves all extremities equally. There is no facial asymmetry or focal weakness. Extraocular movements are intact. SKIN: Intact. DIAGNOSTIC STUDIES/LAB DATA: WBC 3.9, hemoglobin 12.7, hematocrit 39, platelet count 160. INR 1.10, D-dimer is 611. Sodium 138, potassium 3.7, chloride 96, serum bicarbonate 37, BUN 11, creatinine 0.69, glucose 125. AST 11 , ALT 12. BNP 343. Troponins 0.01 x2. WBC 3.9, hemoglobin 12.7, hematocrit 39 , platelet count 160. Chest x-ray shows elevated lung volumes corresponding with a history of obstructive lung disease, no acute cardiopulmonary process evident. The chest/thorax CTA shows "borderline suboptimal contrast opacification and motion artifact mildly degrades the CT pulmonary angiogram. No compelling filling defects are identified from the vein to segmental and more visible subsegmental pulmonary arteries to indicate pulmonary embolism. Suggestion of mild pulmonary vascular congestion with small pleural effusions and passive reflux of contrast to the liver. Suggestion of potential long segment mural thickening of the esophagus, correlate for potential symptoms of esophagitis, consider followup esophagogram or upper GI for further assessment if deemed clinically appropriate. Multiple mediastinal lymph nodes with few mildly enlarged nodes. ASSESSMENT AND PLAN: Mr. Stone is a 74-year-old male with a past medical history of a chronic hypoxemic and hypercapnia respiratory failure as well as diastolic congestive heart failure, chronic obstructive pulmonary disease, hypertension, non- insulin dependent diabetes, atrial fibrillation, who presented to the hospital with concern for shortness of breath and weakness, found to have likely acute on chronic hypoxemic respiratory failure due to diastolic congestive heart failure. Our plans are for observation in the hospital for the followin. Acute on chronic hypoxemic respiratory failure due to congestive heart failure: The patient's elevated blood pressure, CT chest findings and lower extremity edema as well as his laboratory findings all points to the fact that he likely has an acute diastolic congestive heart failure exacerbation. His last echocardiogram was on 04/30/19. At that time, he had an intact ejection fraction, no significant valvular abnormalities. His troponins are normal. Plan to monitor on telemetry, he will have I's and O's with daily weights. He has been given 40 mg IV Lasix in the emergency room and will continue with an additional dose in the morning and then will dose from there based on clinical course. It is not clear what is driving his congestive heart failure exacerbation. He denies any outside food other than what was provided at [facility]. 2. Chronic obstructive pulmonary disease. No evidence of current exacerbation. Plan to continue home medications. 3. Tyle 2 diabetes. Plan to hold metformin and provide blood glucoses q.a.c. with lispro sliding scale. 4. Hypertension. Plan to continue carvedilol, diltiazem, isosorbide. 5. Hypothyroidism. Continue levothyroxine. 6. Depression. Continue sertraline. 7. Urinary retention. Plan to continue tamsulosin and finasteride. The patient has a Bacon placed at [facility] and we will change this per routine q.30 days. 8. Question esophagitis and lymphadenopathy: This has been reviewed with Dr. Saldivar and he will be providing consultation regarding recommendations on the appropriate course of workup and diagnostic workup for this. He will continue on omeprazole and ondansetron and simethicone. 9. Code status is full code. TIME SPENT: Approximately 60 minutes was spent on the admission of this patient , more than half that time was spent with the patient at the bedside reviewing the events leading up to this hospitalization, performing the physical examination, and reviewing my plan of care. SHI MUNIZ NP [id number]/[facility] #: [id number] SAMAN
--- NOTE | 2019-06-04 17:38 | CONS ---
GASTROENTEROLOGY CONSULTATION DATE: 06/04/19 CONSULTING PHYSICIANS: Sia Mathur MD, Sylvie Parish NP ( [facility]) REASON FOR CONSULTATION: Repeated daily emesis and thickened esophagus on CTA in a man who came to the ER weak and short of breath. HISTORY: This 74-year-old man transferred from his intermediate for SOB has a history of diastolic heart failure, COPD, and chronic hypercarbic respiratory failure, AODM atrial fibrillation, recent cessation of anticoagulation ( bilateral chronic subdural hematomas) and recent falls. He has been at [facility] after his family transferred him from [facility]. He has received most of his medical care through the years through the [facility]. He states initially that he has not had any long-term gastrointestinal problems and has not required any evaluation. It appears he has not ever had an upper endoscopy or colonoscopy. He does at length refer to reflux and that the medication he is on (omeprazole 20 mg listed during initial admission 04/29/19) is working well. In the ER as part of the evaluation for possible pulmonary embolism he had a CTA today and that showed a thickened esophagus with some mediastinal nodes, somewhat to the left. There was no localized thickening of the esophagus and no pulmonary mass. History is limited as the patient states he does not know the the answer to most questions. It is in the notes that he has been vomiting in the morning after breakfast, which consist of eggs. He says months ago he was not prone to that although he would not eat eggs in the morning and he preferred cereal. He states that the noontime meal and dinner have not been a problem. Yesterday, he recalls eating turkey that his family brought in and that did not give him trouble. PAST MEDICAL HISTORY: 1. GERD - treated at the [facility] and the discharge summary on 05/20/19 shows he was sent home on Prilosec in the morning and famotidine 20 b.i.d. 2. Morbid obesity. 3. Diabetes. 4. Diastolic heart failure. 5. COPD. 6. Urinary retention - Bacon placed while at [facility]. 7. Atrial fibrillation. 8. Chronic subdurals and anticoagulations stopped.Apr 2019 MEDICATIONS: List reviewed and per the GI relevance are: 1. Metformin 1000 b.i.d. 2. Magnesium oxide 800 a day. 3. Cardizem 120. 4. Carvedilol 25 b.i.d. 5. Atorvastatin 20. 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 He never . He has no children. He has 4 brothers and 2 sisters. His healthcare proxy is Марина Marroquin, a sister who lives locally. REVIEW OF SYSTEMS: No history of abdominal surgery, gallstones, hepatitis, rectal bleeding, prior colonoscopy or upper endo. No history of seizure, TIA or CVA. No history of known thromboembolic phenomena. Again, most of his healthcare has been through the [facility] in [place] and says he has never been admitted there though with low oxygen they suggested admission a year ago and he refused. He recalls a nuclear stress test there a year or two ago. He had a heme positive stool during the April admission here and timing use of a prior Xarelto to be determined. PHYSICAL EXAM: He is a obese older man appearing chronically ill in no overt distress. When awakened, he can give a reasonably cogent history. He just does not know any of the details. His pulses are regular. His color is good. He is on oxygen. HEENT exam shows no icterus. He has no adenopathy. Breath showed diminished sounds bilaterally symmetrically. There is no murmur. The abdomen is obese, symmetric, soft and nontender. Rectal deferred. Extremity: Show symmetric dense edema to the knee 2 to 3+. He has a Bacon in place. DIAGNOSTIC STUDIES: CT review - there is an air-fluid level in a mildly dilated esophagus. The wall is thickened diffusely. There is no focal mass though some suspicious mediastinal nodes. IMPRESSION: This 74-year-old man with multiple problems and very poor functional status has been treated for gastroesophageal reflux disease for many years. The current appearance of the CT and the frequent vomiting could be compatible with a esophageal stricture distally. An early malignancy is certainly also a possibility. Having more trouble with breakfast than dinner might more suggest a pharyngeal problem. Full assessment of significance, cause of exacerbation and response of his cardiopulmonary disease is pending. Upper endoscopy certainly could be justified though the risks and benefits are to be reviewed with the patient and his family. A benign stricture could be dilated though treatment options for a malignancy may be limited. [id number]/[facility] #: [id number] [facility]
[2019-06-04] MEDS: Insulin LISPRO* 1 UNITS UNIT SUBCUT SCH (19:12)
[2019-06-04] MEDS: Tamsulosin CAP* 0.4 MG PO SCH (21:53)
[2019-06-04] MEDS: Atorvastatin* 10 MG TAB PO SCH (21:53)
[2019-06-04] MEDS: Nystatin CREAM* 15 GM TUBE TOPICAL SCH (21:53)
[2019-06-04] MEDS: Carvedilol TAB* 25 MG PO SCH (21:53)
[2019-06-04] MEDS: Heparin VIAL(*) 5000 UNITS/ML VIAL (FIVE THOUSAND) SUBCUT SCH (21:54)
[2019-06-05] MEDS: Heparin VIAL(*) 5000 UNITS/ML VIAL (FIVE THOUSAND) SUBCUT SCH ×3 (05:22→22:05)
[2019-06-05] MEDS: Levothyroxine TAB* 50 MCG TAB PO SCH (05:23)
[2019-06-05] MEDS ORDERED: Furosemide IV* 10 MG/ML VIAL (40 MG) IV ONE (06:00)
[2019-06-05 06:15] LABS: BUN/Creatinine Ratio 10.8 (8-20); Calcium 9.1 mg/dL (8.6-10.3); EGFR African American 146.1 (>60); EGFR Non-African American 120.8 (>60); Potassium 3.7 mmol/L (3.5-5.0)
[2019-06-05] MEDS: Insulin LISPRO* 1 UNITS UNIT SUBCUT SCH ×3 (07:54→17:45)
[2019-06-05] MEDS ORDERED: Acetaminophen TAB* 325 MG PO PRN (08:00)
[2019-06-05] MEDS: SPIRIVA Respimat* (tiotropium) 2.5 mcg/inh Inhaler INH SCH (08:07)
[2019-06-05] MEDS: Mometasone/Formoter 200/5 MDI INH SCH ×2 (08:08→22:34)
[2019-06-05] MEDS: Folic Acid TAB* 1 MG PO SCH (09:02)
[2019-06-05] MEDS: Isosorbide Mononitrate ER TAB* 30 MG PO SCH (09:02)
[2019-06-05] MEDS: Magnesium Oxide TAB* 400 MG PO SCH (09:02)
[2019-06-05] MEDS: Diltiazem CD CAP* 120 MG PO SCH (09:02)
[2019-06-05] MEDS: Finasteride TAB* 5 MG PO SCH (09:03)
[2019-06-05] MEDS: Lactobacillus Acidophilus* 1 TAB PO SCH (09:03)
[2019-06-05] MEDS: Sertraline* 50 MG TAB PO SCH (09:03)
[2019-06-05] MEDS: Carvedilol TAB* 25 MG PO SCH ×2 (09:03→22:05)
[2019-06-05] MEDS: Pantoprazole TAB * 40 MG TAB PO SCH (09:03)
[2019-06-05] MEDS: Nystatin CREAM* 15 GM TUBE TOPICAL SCH ×2 (09:13→22:24)
--- NOTE | 2019-06-05 10:41 | PN ---
Subjective Date of Service: 06/05/19 Interval History: No acute events overnight. Sat 99% on 4L currently, asked RN to wean down. Afebrile. Headache and tylenol prn added back on. Net negative 3.1L (got another 40mg IV dose at 6am) Improved pedal edema b/l tolerated his eggs without nausea this AM, had for 5 days straight at [facility]. Brother is fixing up a 2 room unit near his property (their sister also lives in the front), that is his ultimate goal destination. Does not "believe" in the physical therapy he is getting at [facility], does not think he needs it. Used to drink 4-5 beers a day but none for about 15 days he says though admits his memory is "shot". Denies hx of cirrhosis or double vision. Objective Active Medications: Acetaminophen (Tylenol Tab*) 650 mg PO Q6H PRN PRN Reason: PAIN-MILD/TEMP >/= 100.4 Last Admin: 06/05/19 09:03 Dose: 650 mg Albuterol/Ipratropium (Duoneb (Albuterol 2.5 Mg/Ipratropium 0.5 Mg)) 1 neb INH Q4H PRN PRN Reason: WHEEZING Atorvastatin Calcium (Lipitor*) 10 mg PO BEDTIME [facility] Last Admin: 06/04/19 21:53 Dose: 10 mg Carvedilol (Coreg Tab*) 25 mg PO BID [facility] Last Admin: 06/05/19 09:03 Dose: 25 mg Dextrose (Dextrose 50% Vial 50 Ml*) 25 ml IV PUSH .FOR FS < 60 - SS PRN PRN Reason: FS < 60 Diltiazem HCl (Cardizem Cd Cap*) 120 mg PO DAILY [facility] Last Admin: 06/05/19 09:02 Dose: 120 mg Finasteride (Proscar Tab*) 5 mg PO DAILY [facility] Last Admin: 06/05/19 09:03 Dose: 5 mg Folic Acid (Folvite Tab*) 1 mg PO DAILY [facility] Last Admin: 06/05/19 09:02 Dose: 1 mg Heparin Sodium (Porcine) (Heparin Vial(*)) 5,000 units SUBCUT Q8HR [facility] Last Admin: 06/05/19 05:22 Dose: 5,000 units Insulin Human Lispro (Humalog*) 0 units SUBCUT AC [facility]; Protocol Last Admin: 06/05/19 07:54 Dose: Not Given Isosorbide Mononitrate (Imdur Er Tab*) 30 mg PO DAILY [facility] Last Admin: 06/05/19 09:02 Dose: 30 mg Lactobacillus Rhamnosus (Lactobacillus Acidophilus*) 1 tab PO DAILY [facility] Last Admin: 06/05/19 09:03 Dose: 1 tab Levothyroxine Sodium (Synthroid Tab*) 50 mcg PO DAILY@0600 [facility] Last Admin: 06/05/19 05:23 Dose: 50 mcg Magnesium Oxide (Magox 400 Tab*) 800 mg PO DAILY [facility] Last Admin: 06/05/19 09:02 Dose: 800 mg Mometasone Furoate/Formoterol Fumar (Dulera 200/5 Mdi*) 2 puff INH BID [facility] Last Admin: 06/05/19 08:08 Dose: Not Given Nystatin (Nystatin Cream*) 1 applic TOPICAL BID [facility] Last Admin: 06/05/19 09:13 Dose: 1 applic Ondansetron HCl (Zofran Odt Tab*) 4 mg PO Q6H PRN PRN Reason: NAUSEA/VOMITING Pantoprazole Sodium (Protonix Tab*) 40 mg PO DAILY [facility] Last Admin: 06/05/19 09:03 Dose: 40 mg Sertraline HCl (Zoloft*) 50 mg PO DAILY [facility] Last Admin: 06/05/19 09:03 Dose: 50 mg Simethicone (Mylicon Tab*) 80 mg PO Q6H PRN PRN Reason: abdomen pain Tamsulosin HCl (Flomax Cap*) 0.4 mg PO BEDTIME [facility] Last Admin: 06/04/19 21:53 Dose: 0.4 mg Tiotropium Mccormick (Spiriva Respimat 2.5 Mcg) 2 puff INH DAILY [facility] Last Admin: 06/05/19 08:07 Dose: 2 puff Vital Signs - 8 hr 06/05/19 06/05/19 06/05/19 03:15 07:15 08:09 Temperature 97.4 F 97.6 F Pulse Rate 85 89 88 Respiratory 20 20 16 Rate Blood Pressure 139/85 139/95 (mmHg) O2 Sat by Pulse 96 99 97 Oximetry Oxygen Devices in Use Now: Nasal Cannula Appearance: NAD Eyes: No Scleral Icterus Respiratory: Symmetrical Chest Expansion and Respiratory Effort, - - slight rales bilateral bases. Cardiovascular: - - irregularly irregular, no m/r/g Abdominal: NL Sounds; No Tenderness; No Distention Extremities: - - 1+ edema feet and lower ext b/l. compression stockings on. Skin: No Rash or Ulcers Neurological: Alert and Oriented x 3, NL Muscle Strength and Tone Lines/Tubes/Other Access: Clean, Dry and Intact Bacon Nutrition: Taking PO's Result Diagrams: 06/04/19 09:40 06/05/19 05:49 Additional Lab and Data: Laboratory Results - last 24 hr 06/04/19 06/04/19 06/05/19 09:39 12:45 05:49 D-Dimer, Quantitative 611 H Sodium 140 Potassium 3.7 Chloride 92 L Carbon Dioxide 43 H* Anion Gap 5 BUN 7 Creatinine 0.65 L Est GFR ( Amer) 146.1 Est GFR (Non-Af Amer) 120.8 BUN/Creatinine Ratio 10.8 Glucose 125 H POC Glucose (mg/dL) Calcium 9.1 Troponin I 0.01 06/05/19 07:16 D-Dimer, Quantitative Sodium Potassium Chloride Carbon Dioxide Anion Gap BUN Creatinine Est GFR ( Amer) Est GFR (Non-Af Amer) BUN/Creatinine Ratio Glucose POC Glucose (mg/dL) 127 H Calcium Troponin I Assess/Plan/Problems-Billing Assessment: 74 yo male H diastolic CHF, COPD, 2L O2 with chronic hypercapnic and hypoxic respiratory, NIDDM, Afib (recently stopped off anticoagulation when 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 Suspected acute CHF exaccerbation. - Patient Problems (1) Acute on chronic heart failure with preserved ejection fraction Current Visit: No Status: Acute Code(s): I50.33 - ACUTE ON CHRONIC DIASTOLIC (CONGESTIVE) HEART FAILURE SNOMED Code(s): 755928816 Comment: - Presents with bilateral LE edema - chronically on 2L O2. - s/p net negative 3.1L after 40mg IV lasix. (2) Nausea & vomiting Current Visit: Yes Status: Acute Code(s): R11.2 - NAUSEA WITH VOMITING, UNSPECIFIED SNOMED Code(s): 27812110 Comment: appreciate GI recs resolved PPI consideration for EGD given esophageal thickening with mediastinal lymphadenopathy. Never had EGD or colonoscopy. (3) Esophageal thickening Current Visit: Yes Status: Acute Code(s): K22.8 - OTHER SPECIFIED DISEASES OF ESOPHAGUS SNOMED Code(s): 05652732 Comment: appreciated GI recs. consideration for EGD given esophageal thickening with mediastinal lymphadenopathy. Never had EGD or colonoscopy. (4) Atrial fibrillation Current Visit: No Status: Acute Code(s): I48.91 - UNSPECIFIED ATRIAL FIBRILLATION SNOMED Code(s): 60490240 Comment: - Paraxsymal, anicoagulation stopped due to SDH - Continue diltiazem and carvedilol - was NSR overnight but back in Afib. Overall rate controlled (5) COPD (chronic obstructive pulmonary disease) Current Visit: No Status: Acute Code(s): J44.9 - CHRONIC OBSTRUCTIVE PULMONARY DISEASE, UNSPECIFIED SNOMED Code(s): 95793507 Comment: - With chronic hypoxic and hypercarbic respiratory failure - Titrate supplemental oxygen to low 90s. - Continue triple inhaler therapy - 2L O2 (6) DM2 (diabetes mellitus, type 2) Current Visit: No Status: Acute Comment: - A1c 7.1 on 05/16/19 indicating good control for his age - On metformin at home which is on hold - Continue lispro SS in the hospital - 120s here (7) DVT prophylaxis Current Visit: No Status: Acute Code(s): Z29.9 - ENCOUNTER FOR PROPHYLACTIC MEASURES, UNSPECIFIED SNOMED Code(s): 277240709 Comment: -SCD's, no anticoagulation due to recent SDH (8) JANN (obstructive sleep apnea) Current Visit: No Status: Acute Code(s): G47.33 - OBSTRUCTIVE SLEEP APNEA ( ADULT) (PEDIATRIC) SNOMED Code(s): 02115173 Comment: - With Chronic Hypercarbic respiratory failure - Reportedly has not been compliant with BiPAP at [facility]. (9) Mediastinal lymphadenopathy Current Visit: Yes Status: Acute Code(s): R59.0 - LOCALIZED ENLARGED LYMPH NODES SNOMED Code(s): 45141917 Comment: consideration for EGD given esophageal thickening with mediastinal lymphadenopathy. Never had EGD or colonoscopy. (10) Urinary retention Current Visit: No Status: Acute Code(s): R33.9 - RETENTION OF URINE, UNSPECIFIED SNOMED Code(s): 672718803 Comment: - emma was put in at [facility] since last discharge for retention. - Continue flomax - recommend f/u with Urology as outpatient. Status and Disposition: medicine, switch to inpatient status. From [facility].
[2019-06-05] MEDS: Thiamine TAB* 100 MG TAB PO SCH (14:51)
[2019-06-05] MEDS: Tamsulosin CAP* 0.4 MG PO SCH (22:05)
[2019-06-05] MEDS: Atorvastatin* 10 MG TAB PO SCH (22:05)
[2019-06-06] MEDS: Heparin VIAL(*) 5000 UNITS/ML VIAL (FIVE THOUSAND) SUBCUT SCH ×3 (06:42→20:11)
[2019-06-06] MEDS: Levothyroxine TAB* 50 MCG TAB PO SCH (06:42)
[2019-06-06 07:11] LABS: BUN/Creatinine Ratio 12.1 (8-20); Calcium 9.3 mg/dL (8.6-10.3); EGFR African American 143.6 (>60); EGFR Non-African American 118.6 (>60); Magnesium 1.6 mg/dL (1.9-2.7); Potassium 3.7 mmol/L (3.5-5.0)
[2019-06-06] MEDS ORDERED: Magnesium Sulfate 2 GM IV* 2 GM/50 ML BAG IVPB ONE (07:48)
[2019-06-06] MEDS: Mometasone/Formoter 200/5 MDI INH SCH ×2 (08:11→19:32)
[2019-06-06] MEDS: SPIRIVA Respimat* (tiotropium) 2.5 mcg/inh Inhaler INH SCH (08:11)
[2019-06-06] MEDS: Magnesium Oxide TAB* 400 MG PO SCH (08:14)
[2019-06-06] MEDS: Isosorbide Mononitrate ER TAB* 30 MG PO SCH (08:14)
[2019-06-06] MEDS: Lactobacillus Acidophilus* 1 TAB PO SCH (08:14)
[2019-06-06] MEDS: Sertraline* 50 MG TAB PO SCH (08:14)
[2019-06-06] MEDS: Carvedilol TAB* 25 MG PO SCH ×2 (08:15→20:11)
[2019-06-06] MEDS: Pantoprazole TAB * 40 MG TAB PO SCH (08:15)
[2019-06-06] MEDS: Thiamine TAB* 100 MG TAB PO SCH (08:15)
[2019-06-06] MEDS: Folic Acid TAB* 1 MG PO SCH (08:15)
[2019-06-06] MEDS: Diltiazem CD CAP* 120 MG PO SCH (08:15)
[2019-06-06] MEDS: Finasteride TAB* 5 MG PO SCH (08:15)
[2019-06-06] MEDS: Insulin LISPRO* 1 UNITS UNIT SUBCUT SCH ×3 (08:16→16:55)
[2019-06-06] MEDS: Nystatin CREAM* 15 GM TUBE TOPICAL SCH ×2 (08:36→21:32)
[2019-06-06] MEDS ORDERED: Furosemide TAB* 20 MG PO SCH (09:00)
[2019-06-06] MEDS ORDERED: Magnesium Sulfate 1 GM IV* 1 GM/100 ML BAG IV ONE (14:06)
[2019-06-06] MEDS ORDERED: Potassium Chlor TAB* 20 MEQ TAB.ER PO ONE (14:16)
--- NOTE | 2019-06-06 14:52 | PN ---
Subjective Date of Service: 06/06/19 Interval History: Patient was still refusing Bipap overnight, he was put on oxy mask instead, requiring 4L/min O2 overnight. He was eating scrambled eggs and bagel this morning , he had a few bursts of cough when I saw him. Subsequently when he had another bites of egg and bagel, he coughed vigorously and eventually threw up. His cough settled after vomiting. He admitted he was a heavy smoker in the past stopped 35 yrs ago. He denied morning cough at home, he said it started in the past few days. Noted two episodes of sinus pause about 2s length at 1pm and 2pm, the first one when he was taking a nap, the second one when he was chatting with a aid. He didn't feel any chest pain, SOB, light headiness, dizziness. Rate is in 70-80s, Afib. Objective Active Medications: Acetaminophen (Tylenol Tab*) 650 mg PO Q6H PRN PRN Reason: PAIN-MILD/TEMP >/= 100.4 Last Admin: 06/05/19 09:03 Dose: 650 mg Albuterol/Ipratropium (Duoneb (Albuterol 2.5 Mg/Ipratropium 0.5 Mg)) 1 neb INH Q4H PRN PRN Reason: WHEEZING Atorvastatin Calcium (Lipitor*) 10 mg PO BEDTIME [facility] Last Admin: 06/05/19 22:05 Dose: 10 mg Carvedilol (Coreg Tab*) 25 mg PO BID [facility] Last Admin: 06/06/19 08:15 Dose: 25 mg Dextrose (Dextrose 50% Vial 50 Ml*) 25 ml IV PUSH .FOR FS < 60 - SS PRN PRN Reason: FS < 60 Diltiazem HCl (Cardizem Cd Cap*) 120 mg PO DAILY [facility] Last Admin: 06/06/19 08:15 Dose: 120 mg Finasteride (Proscar Tab*) 5 mg PO DAILY [facility] Last Admin: 06/06/19 08:15 Dose: 5 mg Folic Acid (Folvite Tab*) 1 mg PO DAILY [facility] Last Admin: 06/06/19 08:15 Dose: 1 mg Furosemide (Lasix Tab*) 40 mg PO DAILY [facility] Heparin Sodium (Porcine) (Heparin Vial(*)) 5,000 units SUBCUT Q8HR [facility] Last Admin: 06/06/19 06:42 Dose: 5,000 units Insulin Human Lispro (Humalog*) 0 units SUBCUT [facility]; Protocol Last Admin: 06/06/19 12:08 Dose: 2 units Isosorbide Mononitrate (Imdur Er Tab*) 30 mg PO DAILY [facility] Last Admin: 06/06/19 08:14 Dose: 30 mg Lactobacillus Rhamnosus (Lactobacillus Acidophilus*) 1 tab PO DAILY [facility] Last Admin: 06/06/19 08:14 Dose: 1 tab Levothyroxine Sodium (Synthroid Tab*) 50 mcg PO DAILY@0600 [facility] Last Admin: 06/06/19 06:42 Dose: 50 mcg Magnesium Oxide (Magox 400 Tab*) 800 mg PO DAILY [facility] Last Admin: 06/06/19 08:14 Dose: 800 mg Mometasone Furoate/Formoterol Fumar (Dulera 200/5 Mdi*) 2 puff INH BID [facility] Last Admin: 06/06/19 08:11 Dose: 2 puff Nystatin (Nystatin Cream*) 1 applic TOPICAL BID [facility] Last Admin: 06/06/19 08:36 Dose: 1 applic Ondansetron HCl (Zofran Odt Tab*) 4 mg PO Q6H PRN PRN Reason: NAUSEA/VOMITING Pantoprazole Sodium (Protonix Tab*) 40 mg PO DAILY [facility] Last Admin: 06/06/19 08:15 Dose: 40 mg Sertraline HCl (Zoloft*) 50 mg PO DAILY [facility] Last Admin: 06/06/19 08:14 Dose: 50 mg Simethicone (Mylicon Tab*) 80 mg PO Q6H PRN PRN Reason: abdomen pain Tamsulosin HCl (Flomax Cap*) 0.4 mg PO BEDTIME [facility] Last Admin: 06/05/19 22:05 Dose: 0.4 mg Thiamine HCl (Vitamin B-1 Tab*) 100 mg PO DAILY [facility] Last Admin: 06/06/19 08:15 Dose: 100 mg Tiotropium Hope (Spiriva Respimat 2.5 Mcg) 2 puff INH DAILY [facility] Last Admin: 06/06/19 08:11 Dose: 2 puff Vital Signs - 8 hr 06/06/19 06/06/19 06/06/19 07:15 08:13 11:15 Temperature 98.1 F 97.9 F Pulse Rate 91 91 82 Respiratory 22 22 18 Rate Blood Pressure 134/73 98/60 (mmHg) O2 Sat by Pulse 95 95 97 Oximetry Oxygen Devices in Use Now: Nasal Cannula Exam: Appearance: NAD Eyes: No Scleral Icterus Respiratory: Symmetrical Chest Expansion and Respiratory Effort, - - slight rales bilateral bases. Cardiovascular: irregularly irregular, no m/r/g Abdominal: NL Sounds; No Tenderness; No Distention Extremities: bilateral pitting edema up to ankles Skin: Decreased skin turgor Neurological: Alert and Oriented x 3, NL Muscle Strength and Tone Lines/Tubes/Other Access: Clean, Dry and Intact Carter Nutrition: Taking PO's. Result Diagrams: 06/04/19 09:40 06/06/19 14:49 Additional Lab and Data: Laboratory Results - last 24 hr 06/04/19 06/04/19 06/05/19 09:39 12:45 05:49 D-Dimer, Quantitative 611 H Sodium 140 Potassium 3.7 Chloride 92 L Carbon Dioxide 43 H* Anion Gap 5 BUN 7 Creatinine 0.65 L Est GFR ( Amer) 146.1 Est GFR (Non-Af Amer) 120.8 BUN/Creatinine Ratio 10.8 Glucose 125 H POC Glucose (mg/dL) Calcium 9.1 Troponin I 0.01 06/05/19 07:16 D-Dimer, Quantitative Sodium Potassium Chloride Carbon Dioxide Anion Gap BUN Creatinine Est GFR ( Amer) Est GFR (Non-Af Amer) BUN/Creatinine Ratio Glucose POC Glucose (mg/dL) 127 H Calcium Troponin I Assess/Plan/Problems-Billing Assessment: 74 yo male PMH diastolic CHF, COPD, 2L O2 with chronic hypercapnic and hypoxic respiratory, NIDDM, Afib (recently stopped off anticoagulation when found 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 Suspected acute CHF exaccerbation. His hospital course complicated by incidental finding of thickened gastric wall, and sinus pauses in tele. - Patient Problems (1) Sinus pause Current Visit: Yes Status: Acute Code(s): I45.5 - OTHER SPECIFIED HEART BLOCK SNOMED Code(s): 98215644 Comment: - two episodes of sinus pauses today, 2s each, asymptomatic - electrolytes and trop , EKG no acute changes, and inferior lead Q waves seen, present in Nov EKG but not Oct EKG - TTE pending - keep Mg>2, K>4 - Emphasized the importance of bipap to patient, he agreed to wear it during sleep (2) Acute on chronic heart failure with preserved ejection fraction Current Visit: No Status: Acute Code(s): I50.33 - ACUTE ON CHRONIC DIASTOLIC (CONGESTIVE) HEART FAILURE SNOMED Code(s): 046732374 Comment: - Presents with bilateral LE edema - chronically on 2L O2. - still requiring 3.5L today - decrease lasix to 40mg iv today as decreased skin turgor seen (3) Esophageal thickening Current Visit: Yes Status: Acute Code(s): K22.8 - OTHER SPECIFIED DISEASES OF ESOPHAGUS SNOMED Code(s): 49141370 Comment: appreciated GI recs. consideration for EGD given esophageal thickening with mediastinal lymphadenopathy. Never had EGD or colonoscopy. consider barium swallow and swallow evalulation instead in view of poor cardiac status (sinus pause) (4) Nausea & vomiting Current Visit: Yes Status: Acute Code(s): R11.2 - NAUSEA WITH VOMITING, UNSPECIFIED SNOMED Code(s): 58318083 Comment: oropharyngeal dysphagia vs GI pathology for swallowing eval and endoscopy (5) Atrial fibrillation Current Visit: No Status: Acute Code(s): I48.91 - UNSPECIFIED ATRIAL FIBRILLATION SNOMED Code(s): 64517449 Comment: - Paraxsymal, anicoagulation stopped due to SDH - Continue diltiazem and carvedilol - Afib. Overall rate controlled (6) COPD (chronic obstructive pulmonary disease) Current Visit: No Status: Acute Code(s): J44.9 - CHRONIC OBSTRUCTIVE PULMONARY DISEASE, UNSPECIFIED SNOMED Code(s): 17328523 Comment: - With chronic hypoxic and hypercarbic respiratory failure - Titrate supplemental oxygen to low 90s. - Continue triple inhaler therapy - baseline 2L (7) DM2 (diabetes mellitus, type 2) Current Visit: No Status: Acute Comment: - A1c 7.1 on 05/16/19 indicating good control for his age - On metformin at home which is on hold - Continue lispro SS in the hospital - 120s here (8) DVT prophylaxis Current Visit: No Status: Acute Code(s): Z29.9 - ENCOUNTER FOR PROPHYLACTIC MEASURES, UNSPECIFIED SNOMED Code(s): 956863005 Comment: -SCD's, no anticoagulation due to recent SDH (9) JANN (obstructive sleep apnea) Current Visit: No Status: Acute Code(s): G47.33 - OBSTRUCTIVE SLEEP APNEA ( ADULT) (PEDIATRIC) SNOMED Code(s): 09541763 Comment: - With Chronic Hypercarbic respiratory failure - Reportedly has not been compliant with BiPAP at [facility]. (10) Urinary retention Current Visit: No Status: Acute Code(s): R33.9 - RETENTION OF URINE, UNSPECIFIED SNOMED Code(s): 568080607 Comment: - carter was put in at [facility] since last discharge for retention. - Continue flomax - recommend f/u with Urology as outpatient. (11) Full code status Current Visit: No Status: Acute Code(s): Z78.9 - OTHER SPECIFIED HEALTH STATUS SNOMED Code(s): 345971712 Comment: Confirmed with patient today Status and Disposition: Inpatient Medicine. From [facility]. Attestation Documenting Resident: Zina Pfeiffer Supervising Physician: Vinay Hale Attending/Supervising Physician Comment: Was observed with suspected dysphagia by Dr. Pfeiffer. 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 Chronic hypoxic and hypercapnic failure with refusal to wear bipap to date. Explained the risks to the patient. Would consider a palliative care consult if continues to be noncompliant. ABG tomorrow requested by Dr. Saldivar prior to further consideration for possible EGD on Friday. ECHO ordered given sinus pauses and EKG with now continguous Q waves in III, aVF. Has had brisk diuresis previous 2 days, titrating down lasix. Still some dependent edema. Had been on 2-4L at [facility]. Goal sat between 88-92, wean excess supplemental oxygen. Attestation: This service has been performed in part by a resident under the direction of a teaching physician.I, Vinay Hale, performed the service, or was physically present during the critical, or herrera portions of the service, furnished by the resident. I participated in the management of the patient.
[2019-06-06 15:27] LABS: BUN/Creatinine Ratio 12.6 (8-20); Calcium 8.8 mg/dL (8.6-10.3); EGFR African American 104.4 (>60); EGFR Non-African American 86.3 (>60); Potassium 3.5 mmol/L (3.5-5.0)
[2019-06-06 15:28] LABS: Troponin I 0.01 ng/mL (<0.03)
[2019-06-06] MEDS: Atorvastatin* 10 MG TAB PO SCH (20:11)
[2019-06-06] MEDS: Tamsulosin CAP* 0.4 MG PO SCH (20:11)
[2019-06-06] MEDS: hydrOXYzine HCL TAB* 10 MG PO PRN (22:43)
[2019-06-07] MEDS: Melatonin 3 MG TAB PO SCH ×2 (00:32→21:07)
[2019-06-07] MEDS: Levothyroxine TAB* 50 MCG TAB PO SCH (05:23)
[2019-06-07] MEDS: Heparin VIAL(*) 5000 UNITS/ML VIAL (FIVE THOUSAND) SUBCUT SCH (05:23)
[2019-06-07 06:52] LABS: ABS Eosinophils 0.1 10^3/ul (0-0.6); ABS Lymphocytes 1.2 10^3/ul (1.0-4.8); ABS Monocytes 0.5 10^3/ul (0-0.8); ABS Neutrophils 2.6 10^3/ul (1.5-7.7); Eosinophil % 2.6 %; Hematocrit 36 % (42-52); Lymphocyte % 26.3 %; Mean Corpuscular HGB Conc 34 g/dL (31-36); Mean Corpuscular Hemoglobin 29 pg (27-31); Mean Corpuscular Volume 86 fL (80-94); Mean Platelet Volume 7.2 fL (7.4-10.4); Platelet Count 159 10^3/uL (150-450); Red Blood Count 4.15 10^6 /uL (4.18-5.48); Red Cell Distribution Width 15 % (10-15); White Blood Count 4.4 10^3/uL (3.5-10.8)
[2019-06-07 07:09] LABS: BUN/Creatinine Ratio 17.8 (8-20); Calcium 8.3 mg/dL (8.6-10.3); EGFR African American 127.8 (>60); EGFR Non-African American 105.6 (>60); Magnesium 1.9 mg/dL (1.9-2.7); Potassium 3.5 mmol/L (3.5-5.0)
[2019-06-07] MEDS: Mometasone/Formoter 200/5 MDI INH SCH ×2 (07:46→19:56)
[2019-06-07] MEDS: SPIRIVA Respimat* (tiotropium) 2.5 mcg/inh Inhaler INH SCH (07:47)
[2019-06-07] MEDS ORDERED: Potassium Chlor TAB* 20 MEQ TAB.ER PO ONE ×2 (08:10→17:11)
[2019-06-07] MEDS: Sertraline* 50 MG TAB PO SCH (08:55)
[2019-06-07] MEDS: Insulin LISPRO* 1 UNITS UNIT SUBCUT SCH ×3 (08:55→17:06)
[2019-06-07] MEDS: Thiamine TAB* 100 MG TAB PO SCH (08:56)
[2019-06-07] MEDS: Carvedilol TAB* 25 MG PO SCH ×2 (08:56→21:07)
[2019-06-07] MEDS: Diltiazem CD CAP* 120 MG PO SCH (08:56)
[2019-06-07] MEDS: Folic Acid TAB* 1 MG PO SCH (08:56)
[2019-06-07] MEDS: Furosemide TAB* 20 MG PO SCH (08:56)
[2019-06-07] MEDS: Finasteride TAB* 5 MG PO SCH (08:57)
[2019-06-07] MEDS: Lactobacillus Acidophilus* 1 TAB PO SCH (08:57)
[2019-06-07] MEDS: Pantoprazole TAB * 40 MG TAB PO SCH (08:57)
[2019-06-07] MEDS: Magnesium Oxide TAB* 400 MG PO SCH (08:57)
[2019-06-07] MEDS: Isosorbide Mononitrate ER TAB* 30 MG PO SCH (08:58)
[2019-06-07] MEDS ORDERED: Perflutren Lipid Microsphere* 3 ML VIAL ONE (09:40)
--- NOTE | 2019-06-07 11:00 | ECHO ---
*[facility]* [place] [address] Fax #: [phone] Transthoracic Echocardiogram Patient: Jonah Stone : 1945 Study Date: 06/07/2019 Age: 74 Gender: M HR: 79 bpm Height: 72 in /182.9 cm BSA: 2.29 m^2 Weight: 237.5 lb /108 kg BMI: 32.3 kg/m^2 *Field Contact Technician: * Nilda Metz [facility] *Referring Physician: * Zina Pfeiffer *Reading Physician: * Lj Dumas MD Indications: Abnormal EKG. History: Atrial fibrillation. Chronic obstructive pulmonary disease. Risk factors: Hypertension. Diabetes mellitus. Conclusions Summary: - Left ventricle: Systolic function is normal. The estimated ejection fraction is 55-60%. Wall motion is normal; there are no regional wall motion abnormalities. - Left atrium: The atrium is severely dilated. - Mitral valve: There is no significant regurgitation. - Aortic valve: There is no evidence of stenosis. - Tricuspid valve: There is trace to mild regurgitation. - Pulmonary arteries: Systolic pressure is within the normal range. - Compared to study of 04/30/19, there is no change. Study data: Transthoracic echocardiogram. Procedure: Transthoracic echocardiography was performed. Image quality was suboptimal. Intravenous Definity , 2 mlswas administered. Complete 2D, spectral Doppler, and color flow Doppler. Location: Bedside. Patient status: Inpatient. Patient room number: 448 02. Rhythm: Atrial fibrillation. Findings Left ventricle: The cavity size is normal. Wall thickness is mildly to moderately increased. Systolic function is normal. The estimated ejection fraction is 55-60%. Wall motion is normal; there are no regional wall motion abnormalities. Left ventricular diastolic function parameters are indeterminate. Right ventricle: The cavity size is mildly dilated. Systolic function is normal. Left atrium: The atrium is severely dilated. Right atrium: The atrium is moderately to severely dilated. Mitral valve: The leaflets are normal thickness. There is no evidence of stenosis. There is no significant regurgitation. Aortic valve: The valve is probably trileaflet. The leaflets are mildly thickened. There is no evidence of stenosis. There is no significant regurgitation. Tricuspid valve: The leaflets are normal thickness. There is no evidence of stenosis. There is trace to mild regurgitation. Pulmonic valve: Not well visualized. There is no significant regurgitation. Aorta: Aortic root: The aortic root is mildly dilated. Ascending aorta: The ascending aorta is mildly dilated. Aortic arch: The aortic arch is mildly dilated. Pericardium: There is no significant pericardial effusion. Pulmonary arteries: Not well visualized. Systolic pressure is within the normal range. Systemic veins: Inferior vena cava: There is (>= 50%) respiratory change in the IVC dimension. Measurements Left ventricle Value Ref Mitral valve Value Ref ABHINAV, LAX (L) 4.0 cm 4.2 - 5.8 Peak E 0.89 m/sec ----- ESD, LAX 3.2 cm 2.5 - 4.0 Peak A 0.03 m/sec ----- FS, LAX (L) 22 % 25 - 43 Decel time 143 ms ----- PW, ED, LAX (H) 1.3 cm 0.6 - 1.0 Peak grad, D 3.1 mm Hg ----- EF (L) 45 % 52 - 72 Peak E/A ratio 31.6 ----- E', lat yevgeniy, TDI 12.6 cm/sec >=10.0 E/e', lat yevgeniy, 7 Pulmonic valve Value Ref TDI Peak v, S 0.62 m/sec ----- E', med yevgeniy, TDI 9.6 cm/sec >=7.0 Peak grad, S 2.0 mm Hg --- -- E/e', med yevgeniy, 9 TDI Tricuspid valve Value Ref E', avg, TDI 11.1 cm/sec TR peak v 2 m/sec <=2 .8 E/e', avg, TDI 8 <=14 Peak RV-RA grad, S 16 mm Hg --- -- LVOT Value Ref Aortic root Value Ref Peak claire, S 0.97 m/sec Root diam 3.5 cm <4.4 Ventricular septum Value Ref Ascending aorta Value Ref IVS, ED (H) 1.6 cm 0.6 - 1.0 AAo AP diam, S 3.6 cm ----- Right ventricle Value Ref Aortic arch Value Ref ABHINAV, LAX 4.1 cm Arch diam 3.7 cm ----- ABHINAV minor ax, A4C (H) 4.0 cm 1.9 - 3.5 mid Decending aorta Value Ref Pressure, S 24 mm Hg Melany peak claire 0.57 m/sec ----- Left atrium Value Ref Pulmonary artery Value Ref AP dim, ES (H) 4.60 cm 3.00 - Pressure, S 22.0 mm Hg ----- 4.00 Vol/bsa, S (H) 58 ml/m^2 16 - 34 Inferior vena cava Value Ref Diam 1.8 cm ----- Right atrium Value Ref SI dim, ES (H) 6.7 cm 3.4 - 5.3 ML dim, ES, A4C (H) 4.7 cm 2.6 - 4.4 Estimated RAP 8 mm Hg Aortic valve Value Ref Yevgeniy diam, ED 2.1 cm Peak v, S 1.13 m/sec Peak grad, S 5.0 mm Hg Legend: (L) and (H) ruben values outside specified reference range. Prepared and electronically signed by Lj Dumas MD 06/07/2019 11:00
[2019-06-07] MEDS: Nystatin CREAM* 15 GM TUBE TOPICAL SCH ×2 (11:19→21:11)
--- NOTE | 2019-06-07 16:10 | PN ---
Progress Note - Progress Note Date of Service: 06/07/19 Note: Pt asleep will try tomorrow.
--- NOTE | 2019-06-07 17:29 | PN ---
Subjective Date of Service: 06/07/19 Interval History: Patient used Bipap yesterday. on room air; maintaining saturation of 97% Patient feeling fine. denies cough, chest pain and dizziness. had speech evaluation today and it was normal; recommended regular diet Objective Active Medications: Acetaminophen (Tylenol Tab*) 650 mg PO Q6H PRN PRN Reason: PAIN-MILD/TEMP >/= 100.4 Last Admin: 06/05/19 09:03 Dose: 650 mg Albuterol/Ipratropium (Duoneb (Albuterol 2.5 Mg/Ipratropium 0.5 Mg)) 1 neb INH Q4H PRN PRN Reason: WHEEZING Atorvastatin Calcium (Lipitor*) 10 mg PO BEDTIME [facility] Last Admin: 06/06/19 20:11 Dose: 10 mg Carvedilol (Coreg Tab*) 25 mg PO BID [facility] Last Admin: 06/07/19 08:56 Dose: 25 mg Dextrose (Dextrose 50% Vial 50 Ml*) 25 ml IV PUSH .FOR FS < 60 - SS PRN PRN Reason: FS < 60 Diltiazem HCl (Cardizem Cd Cap*) 120 mg PO DAILY [facility] Last Admin: 06/07/19 08:56 Dose: 120 mg Enoxaparin Sodium (Lovenox(*)) 40 mg SUBCUT BEDTIME [facility] Finasteride (Proscar Tab*) 5 mg PO DAILY [facility] Last Admin: 06/07/19 08:57 Dose: 5 mg Folic Acid (Folvite Tab*) 1 mg PO DAILY [facility] Last Admin: 06/07/19 08:56 Dose: 1 mg Furosemide (Lasix Tab*) 40 mg PO DAILY [facility] Last Admin: 06/07/19 08:56 Dose: 40 mg Hydroxyzine HCl (Atarax Tab*) 10 mg PO Q4H PRN PRN Reason: ANXIETY Last Admin: 06/06/19 22:43 Dose: 10 mg Insulin Human Lispro (Humalog*) 0 units SUBCUT AC [facility]; Protocol Last Admin: 06/07/19 17:06 Dose: Not Given Isosorbide Mononitrate (Imdur Er Tab*) 30 mg PO DAILY [facility] Last Admin: 06/07/19 08:58 Dose: 30 mg Lactobacillus Rhamnosus (Lactobacillus Acidophilus*) 1 tab PO DAILY [facility] Last Admin: 06/07/19 08:57 Dose: 1 tab Levothyroxine Sodium (Synthroid Tab*) 50 mcg PO DAILY@0600 [facility] Last Admin: 06/07/19 05:23 Dose: 50 mcg Magnesium Oxide (Magox 400 Tab*) 800 mg PO DAILY [facility] Last Admin: 06/07/19 08:57 Dose: 800 mg Melatonin (Melatonin) 3 mg PO BEDTIME [facility] Last Admin: 06/07/19 00:32 Dose: 3 mg Mometasone Furoate/Formoterol Fumar (Dulera 200/5 Mdi*) 2 puff INH BID [facility] Last Admin: 06/07/19 07:46 Dose: 2 puff Nystatin (Nystatin Cream*) 1 applic TOPICAL BID [facility] Last Admin: 06/07/19 11:19 Dose: 1 applic Ondansetron HCl (Zofran Odt Tab*) 4 mg PO Q6H PRN PRN Reason: NAUSEA/VOMITING Pantoprazole Sodium (Protonix Tab*) 40 mg PO DAILY [facility] Last Admin: 06/07/19 08:57 Dose: 40 mg Sertraline HCl (Zoloft*) 50 mg PO DAILY [facility] Last Admin: 06/07/19 08:55 Dose: 50 mg Simethicone (Mylicon Tab*) 80 mg PO Q6H PRN PRN Reason: abdomen pain Tamsulosin HCl (Flomax Cap*) 0.4 mg PO BEDTIME [facility] Last Admin: 06/06/19 20:11 Dose: 0.4 mg Thiamine HCl (Vitamin B-1 Tab*) 100 mg PO DAILY [facility] Last Admin: 06/07/19 08:56 Dose: 100 mg Tiotropium Lomita (Spiriva Respimat 2.5 Mcg) 2 puff INH DAILY [facility] Last Admin: 06/07/19 07:47 Dose: 2 puff Vital Signs - 8 hr 06/07/19 11:15 Temperature 97.0 F Pulse Rate 73 Respiratory 20 Rate Blood Pressure 114/70 (mmHg) O2 Sat by Pulse 97 Oximetry Oxygen Devices in Use Now: Nasal Cannula Exam: Appearance: NAD Eyes: No Scleral Icterus Respiratory: Symmetrical Chest Expansion and Respiratory Effort, - - slight rales bilateral bases. Cardiovascular: irregularly irregular, no m/r/g Abdominal: NL Sounds; No Tenderness; No Distention Extremities: bilateral pitting edema up to ankles Neurological: Alert and Oriented x 3, NL Muscle Strength and Tone Lines/Tubes/Other Access: Clean, Dry and Intact Bacon Nutrition: Taking PO's. Result Diagrams: 06/07/19 06:25 06/07/19 06:25 Additional Lab and Data: Laboratory Results - last 24 hr 06/04/19 06/04/19 06/05/19 09:39 12:45 05:49 D-Dimer, Quantitative 611 H Sodium 140 Potassium 3.7 Chloride 92 L Carbon Dioxide 43 H* Anion Gap 5 BUN 7 Creatinine 0.65 L Est GFR ( Amer) 146.1 Est GFR (Non-Af Amer) 120.8 BUN/Creatinine Ratio 10.8 Glucose 125 H POC Glucose (mg/dL) Calcium 9.1 Troponin I 0.01 06/05/19 07:16 D-Dimer, Quantitative Sodium Potassium Chloride Carbon Dioxide Anion Gap BUN Creatinine Est GFR ( Amer) Est GFR (Non-Af Amer) BUN/Creatinine Ratio Glucose POC Glucose (mg/dL) 127 H Calcium Troponin I Assess/Plan/Problems-Billing Assessment: 74 yo male PMH HFpEF, COPD, 2L O2 with chronic hypercapnic and hypoxic respiratory, NIDDM, Afib (recently stopped off anticoagulation 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 Suspected acute CHF exacerbation. Hospital course complicated by incidental finding of thickened gastric wall, and sinus pauses in tele; asymptomatic. Awaiting barium swallow and EGD - Patient Problems (1) Esophageal thickening Current Visit: Yes Status: Acute Code(s): K22.8 - OTHER SPECIFIED DISEASES OF ESOPHAGUS SNOMED Code(s): 15845691 Comment: -swallow eval normal -appreciated GI recs. -EGD tomorrow given esophageal thickening with mediastinal lymphadenopathy. Never had EGD or colonoscopy. -barium swallow tomorrow (2) Sinus pause Current Visit: Yes Status: Acute Code(s): I45.5 - OTHER SPECIFIED HEART BLOCK SNOMED Code(s): 14427289 Comment: - one episodes of sinus pause today for 2 sec, asymptomatic - electrolytes and trop , EKG no acute changes, and inferior lead Q waves seen, present in Nov EKG but not Oct EKG - TTE similar to 04/30/2019- EF of 55-60% with severe LA dilatation - keep Mg>2, K>4; repleting; monitor tomorrow - Noncomplaint with bipap; used today night (3) Acute on chronic heart failure with preserved ejection fraction Current Visit: No Status: Acute Code(s): I50.33 - ACUTE ON CHRONIC DIASTOLIC (CONGESTIVE) HEART FAILURE SNOMED Code(s): 935897495 Comment: - Presents with bilateral LE edema - chronically on 2L O2. - on room air today - on po lasix 40 mg daily (4) Atrial fibrillation Current Visit: No Status: Acute Code(s): I48.91 - UNSPECIFIED ATRIAL FIBRILLATION SNOMED Code(s): 27814672 Comment: - Paraxsymal, anicoagulation stopped due to SDH - Continue diltiazem and carvedilol - Afib. Overall rate controlled (5) COPD (chronic obstructive pulmonary disease) Current Visit: No Status: Acute Code(s): J44.9 - CHRONIC OBSTRUCTIVE PULMONARY DISEASE, UNSPECIFIED SNOMED Code(s): 15762135 Comment: - With chronic hypoxic and hypercarbic respiratory failure - Titrate supplemental oxygen to low 90s. - Continue triple inhaler therapy - baseline 2L; not using oxygen today (6) DM2 (diabetes mellitus, type 2) Current Visit: No Status: Acute Comment: - A1c 7.1 on 05/16/19 indicating good control for his age - On metformin at home which is on hold - Continue lispro SS in the hospital - 120s here (7) Carbon dioxide retention Current Visit: Yes Status: Acute Code(s): E87.2 - ACIDOSIS SNOMED Code(s) : 48479302 Comment: -has chronic retention -probably from JANN and noncomplaint with Bipap use -Got better during this discharge but increased today -could be from contraction alkalosis -lasix switched to po -will monitor (8) JANN (obstructive sleep apnea) Current Visit: No Status: Acute Code(s): G47.33 - OBSTRUCTIVE SLEEP APNEA ( ADULT) (PEDIATRIC) SNOMED Code(s): 08030292 Comment: - With Chronic Hypercarbic respiratory failure - Reportedly has not been compliant with BiPAP at [facility]. -encouraged to use bipap machine (9) Urinary retention Current Visit: No Status: Acute Code(s): R33.9 - RETENTION OF URINE, UNSPECIFIED SNOMED Code(s): 294521850 Comment: - emma was put in at [facility] since last discharge for retention. - Continue flomax - recommend f/u with Urology as outpatient. (10) DVT prophylaxis Current Visit: No Status: Acute Code(s): Z29.9 - ENCOUNTER FOR PROPHYLACTIC MEASURES, UNSPECIFIED SNOMED Code(s): 184504315 Comment: -SCD's, no anticoagulation due to recent SDH (11) Full code status Current Visit: No Status: Acute Code(s): Z78.9 - OTHER SPECIFIED HEALTH STATUS SNOMED Code(s): 569919964 Comment: Confirmed with patient today Status and Disposition: Inpatient Medicine. From [facility]. awaiting EGD and barium swallow- tomorrow. Attending: Maddie Rangel Attestation Documenting Resident: Ld Gerco Supervising Physician: Maddie Rangel Attestation: This service has been performed in part by a resident under the direction of a teaching physician.I, Maddie Rangel, performed the service, or was physically present during the critical, or herrera portions of the service, furnished by the resident. I participated in the management of the patient.
[2019-06-07] MEDS ORDERED: Enoxaparin(*) 40 MG/0.4 ML SYR SUBCUT SCH (21:00)
[2019-06-07] MEDS: Atorvastatin* 10 MG TAB PO SCH (21:08)
[2019-06-07] MEDS: Tamsulosin CAP* 0.4 MG PO SCH (21:08)
[2019-06-08] MEDS: Levothyroxine TAB* 50 MCG TAB PO SCH (05:56)
[2019-06-08 06:38] LABS: ABS Eosinophils 0.1 10^3/ul (0-0.6); ABS Lymphocytes 1.3 10^3/ul (1.0-4.8); ABS Monocytes 0.5 10^3/ul (0-0.8); ABS Neutrophils 2.8 10^3/ul (1.5-7.7); Eosinophil % 2.8 %; Hematocrit 36 % (42-52); Lymphocyte % 27.2 %; Mean Corpuscular HGB Conc 34 g/dL (31-36); Mean Corpuscular Hemoglobin 29 pg (27-31); Mean Corpuscular Volume 86 fL (80-94); Mean Platelet Volume 7.5 fL (7.4-10.4); Nucleated Red Blood Cells % 0.2; Platelet Count 171 10^3/uL (150-450); Red Blood Count 4.15 10^6 /uL (4.18-5.48); Red Cell Distribution Width 15 % (10-15); White Blood Count 4.8 10^3/uL (3.5-10.8)
--- NOTE | 2019-06-08 06:51 | PN ---
Subjective Date of Service: 06/08/19 Interval History: HD 5 on 06/08/2019 No acute overnight notes VS stable on and off oxygen; still requiring 3 L of oxygen patient says he feels hungry. Denies any complaint. Objective Active Medications: Acetaminophen (Tylenol Tab*) 650 mg PO Q6H PRN PRN Reason: PAIN-MILD/TEMP >/= 100.4 Last Admin: 06/05/19 09:03 Dose: 650 mg Albuterol/Ipratropium (Duoneb (Albuterol 2.5 Mg/Ipratropium 0.5 Mg)) 1 neb INH Q4H PRN PRN Reason: WHEEZING Atorvastatin Calcium (Lipitor*) 10 mg PO BEDTIME [facility] Last Admin: 06/07/19 21:08 Dose: 10 mg Carvedilol (Coreg Tab*) 25 mg PO BID [facility] Last Admin: 06/07/19 21:07 Dose: 25 mg Dextrose (Dextrose 50% Vial 50 Ml*) 25 ml IV PUSH .FOR FS < 60 - SS PRN PRN Reason: FS < 60 Diltiazem HCl (Cardizem Cd Cap*) 120 mg PO DAILY [facility] Last Admin: 06/07/19 08:56 Dose: 120 mg Enoxaparin Sodium (Lovenox(*)) 40 mg SUBCUT BEDTIME [facility] Last Admin: 06/07/19 21:08 Dose: 40 mg Finasteride (Proscar Tab*) 5 mg PO DAILY [facility] Last Admin: 06/07/19 08:57 Dose: 5 mg Folic Acid (Folvite Tab*) 1 mg PO DAILY [facility] Last Admin: 06/07/19 08:56 Dose: 1 mg Furosemide (Lasix Tab*) 40 mg PO DAILY [facility] Last Admin: 06/07/19 08:56 Dose: 40 mg Hydroxyzine HCl (Atarax Tab*) 10 mg PO Q4H PRN PRN Reason: ANXIETY Last Admin: 06/06/19 22:43 Dose: 10 mg Insulin Human Lispro (Humalog*) 0 units SUBCUT AC [facility]; Protocol Last Admin: 06/07/19 17:06 Dose: Not Given Isosorbide Mononitrate (Imdur Er Tab*) 30 mg PO DAILY [facility] Last Admin: 06/07/19 08:58 Dose: 30 mg Lactobacillus Rhamnosus (Lactobacillus Acidophilus*) 1 tab PO DAILY [facility] Last Admin: 06/07/19 08:57 Dose: 1 tab Levothyroxine Sodium (Synthroid Tab*) 50 mcg PO DAILY@0600 [facility] Last Admin: 06/08/19 05:56 Dose: 50 mcg Magnesium Oxide (Magox 400 Tab*) 800 mg PO DAILY [facility] Last Admin: 06/07/19 08:57 Dose: 800 mg Melatonin (Melatonin) 3 mg PO BEDTIME [facility] Last Admin: 06/07/19 21:07 Dose: 3 mg Mometasone Furoate/Formoterol Fumar (Dulera 200/5 Mdi*) 2 puff INH BID [facility] Last Admin: 06/07/19 19:56 Dose: 2 puff Nystatin (Nystatin Cream*) 1 applic TOPICAL BID [facility] Last Admin: 06/07/19 21:11 Dose: 1 applic Ondansetron HCl (Zofran Odt Tab*) 4 mg PO Q6H PRN PRN Reason: NAUSEA/VOMITING Pantoprazole Sodium (Protonix Tab*) 40 mg PO DAILY [facility] Last Admin: 06/07/19 08:57 Dose: 40 mg Sertraline HCl (Zoloft*) 50 mg PO DAILY [facility] Last Admin: 06/07/19 08:55 Dose: 50 mg Simethicone (Mylicon Tab*) 80 mg PO Q6H PRN PRN Reason: abdomen pain Tamsulosin HCl (Flomax Cap*) 0.4 mg PO BEDTIME [facility] Last Admin: 06/07/19 21:08 Dose: 0.4 mg Thiamine HCl (Vitamin B-1 Tab*) 100 mg PO DAILY [facility] Last Admin: 06/07/19 08:56 Dose: 100 mg Tiotropium Sprague (Spiriva Respimat 2.5 Mcg) 2 puff INH DAILY [facility] Last Admin: 06/07/19 07:47 Dose: 2 puff Vital Signs - 8 hr 06/07/19 06/08/19 23:15 03:20 Temperature 98.9 F 98.3 F Pulse Rate 70 78 Respiratory 16 16 Rate Blood Pressure 95/50 137/80 (mmHg) O2 Sat by Pulse 93 98 Oximetry Oxygen Devices in Use Now: Nasal Cannula Exam: Appearance: NAD Eyes: No Scleral Icterus Respiratory: Symmetrical Chest Expansion and Respiratory Effort, - - slight rales bilateral bases. Cardiovascular: irregularly irregular, no m/r/g Abdominal: NL Sounds; No Tenderness; No Distention Extremities: bilateral pitting edema up to ankles Neurological: Alert and Oriented x 3, NL Muscle Strength and Tone Lines/Tubes/Other Access: Clean, Dry and Intact Carter Nutrition: Taking PO's. Result Diagrams: 06/08/19 05:56 06/09/19 05:35 Additional Lab and Data: Laboratory Results - last 24 hr 06/04/19 06/04/19 06/05/19 09:39 12:45 05:49 D-Dimer, Quantitative 611 H Sodium 140 Potassium 3.7 Chloride 92 L Carbon Dioxide 43 H* Anion Gap 5 BUN 7 Creatinine 0.65 L Est GFR ( Amer) 146.1 Est GFR (Non-Af Amer) 120.8 BUN/Creatinine Ratio 10.8 Glucose 125 H POC Glucose (mg/dL) Calcium 9.1 Troponin I 0.01 06/05/19 07:16 D-Dimer, Quantitative Sodium Potassium Chloride Carbon Dioxide Anion Gap BUN Creatinine Est GFR ( Amer) Est GFR (Non-Af Amer) BUN/Creatinine Ratio Glucose POC Glucose (mg/dL) 127 H Calcium Troponin I Assess/Plan/Problems-Billing Assessment: 74 yo male PMH HFpEF, COPD, 2L O2 with chronic hypercapnic and hypoxic respiratory, NIDDM, Afib (recently stopped off anticoagulation d/t 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 Suspected acute CHF exacerbation. Hospital course complicated by incidental finding of thickened gastric wall, and sinus pauses in tele; asymptomatic. EGD showed thrush - Patient Problems (1) Esophageal thickening Status: Acute Code(s): K22.8 - OTHER SPECIFIED DISEASES OF ESOPHAGUS SNOMED Code(s): 94009534 Comment: -swallow eval normal -appreciated GI recs. -barium swallow- suspicion of malignacy -EGD done- no mass; had thrush and possible spasm -On clotrimazole (2) Sinus pause Status: Acute Code(s): I45.5 - OTHER SPECIFIED HEART BLOCK SNOMED Code(s): 90602917 Comment: - one episodes of sinus pause yesterday for 2 sec, asymptomatic - electrolytes and trop , EKG no acute changes, and inferior lead Q waves seen, present in Nov EKG but not Oct EKG - TTE similar to 04/30/2019- EF of 55-60% with severe LA dilatation - keep Mg>2, K>4; repleting; monitor tomorrow - Noncomplaint with bipap (3) Acute on chronic heart failure with preserved ejection fraction Status: Acute Code(s): I50.33 - ACUTE ON CHRONIC DIASTOLIC (CONGESTIVE) HEART FAILURE SNOMED Code(s): 071979110 Comment: - Presents with bilateral LE edema - chronically on 2L O2. - on room air today - on po lasix 40 mg daily (4) Atrial fibrillation Status: Acute Code(s): I48.91 - UNSPECIFIED ATRIAL FIBRILLATION SNOMED Code( s): 40011648 Comment: - Paraxsymal, anicoagulation stopped due to SDH - Continue diltiazem and carvedilol - Afib. Overall rate controlled (5) COPD (chronic obstructive pulmonary disease) Status: Acute Code(s): J44.9 - CHRONIC OBSTRUCTIVE PULMONARY DISEASE, UNSPECIFIED SNOMED Code(s): 94868131 Comment: - With chronic hypoxic and hypercarbic respiratory failure - Titrate supplemental oxygen to low 90s. - Continue triple inhaler therapy - baseline 2L; not using oxygen today (6) DM2 (diabetes mellitus, type 2) Status: Acute Comment: - A1c 7.1 on 05/16/19 indicating good control for his age - On metformin at home which is on hold - Continue lispro SS in the hospital - 120s here (7) Carbon dioxide retention Status: Acute Code(s): E87.2 - ACIDOSIS SNOMED Code(s): 46381349 Comment: -has chronic retention -probably from JANN and noncomplaint with Bipap use -Got better during this discharge but increased today -could be from contraction alkalosis -lasix switched to po -will monitor (8) JANN (obstructive sleep apnea) Status: Acute Code(s): G47.33 - OBSTRUCTIVE SLEEP APNEA (ADULT) (PEDIATRIC) SNOMED Code(s): 51755095 Comment: - With Chronic Hypercarbic respiratory failure - Reportedly has not been compliant with BiPAP at [facility]. -encouraged to use bipap machine (9) Urinary retention Status: Acute Code(s): R33.9 - RETENTION OF URINE, UNSPECIFIED SNOMED Code(s ): 913232716 Comment: - carter was put in at [facility] since last discharge for retention. - Continue flomax - recommend f/u with Urology as outpatient. (10) DVT prophylaxis Status: Acute Code(s): Z29.9 - ENCOUNTER FOR PROPHYLACTIC MEASURES, UNSPECIFIED SNOMED Code(s): 404017671 Comment: -SCD's, no anticoagulation due to recent SDH (11) Full code status Status: Acute Code(s): Z78.9 - OTHER SPECIFIED HEALTH STATUS SNOMED Code(s) : 668282541 Comment: Confirmed with patient today Status and Disposition: Inpatient Medicine. From [facility]. Attending: Maddie Rangel Attestation Documenting Resident: Ld Greco Supervising Physician: Maddie Rangel Attending/Supervising Physician Comment: HF exacerbation has resolved, but pt now being worked up for progressive nausea and vomiting. Barium swallow concerning for mass, however, EGD with esophageal spasm s/p dilation. Also noted to have candidiasis. Recommend to better control GERD. Pt already on PPI, can also consider bid dosing vs addition of H2 stephanie. Can follow this up outpatient. Attestation: This service has been performed in part by a resident under the direction of a teaching physician.I, Maddie Rangel, performed the service, or was physically present during the critical, or herrera portions of the service, furnished by the resident. I participated in the management of the patient.
[2019-06-08 07:01] LABS: BUN/Creatinine Ratio 16.2 (8-20); Blood Urea Nitrogen 11 mg/dL (6-24); CO2 Carbon Dioxide 38 mmol/L (22-32); Calcium 8.7 mg/dL (8.6-10.3); Chloride 96 mmol/L (101-111); EGFR African American 138.7 (>60); EGFR Non-African American 114.6 (>60); Glucose 109 mg/dL (70-100); Sodium 137 mmol/L (135-145)
[2019-06-08 07:20] LABS: Anion Gap 3 mmol/L (2-11)
[2019-06-08] MEDS: Insulin LISPRO* 1 UNITS UNIT SUBCUT SCH ×3 (07:35→17:36)
[2019-06-08] MEDS: Mometasone/Formoter 200/5 MDI INH SCH ×2 (08:06→20:11)
[2019-06-08] MEDS: SPIRIVA Respimat* (tiotropium) 2.5 mcg/inh Inhaler INH SCH (08:06)
[2019-06-08 08:58] LABS: Magnesium 1.9 mg/dL (1.9-2.7); Potassium 4.5 mmol/L (3.5-5.0)
[2019-06-08] MEDS: Magnesium Oxide TAB* 400 MG PO SCH (09:31)
[2019-06-08] MEDS: Folic Acid TAB* 1 MG PO SCH (09:31)
[2019-06-08] MEDS: Sertraline* 50 MG TAB PO SCH (09:31)
[2019-06-08] MEDS: Finasteride TAB* 5 MG PO SCH (09:31)
[2019-06-08] MEDS: Lactobacillus Acidophilus* 1 TAB PO SCH (09:31)
[2019-06-08] MEDS: Nystatin CREAM* 15 GM TUBE TOPICAL SCH ×2 (09:31→20:26)
[2019-06-08] MEDS: Pantoprazole TAB * 40 MG TAB PO SCH (09:31)
[2019-06-08] MEDS: Thiamine TAB* 100 MG TAB PO SCH (09:31)
[2019-06-08] MEDS: Isosorbide Mononitrate ER TAB* 30 MG PO SCH (09:31)
[2019-06-08] MEDS: Diltiazem CD CAP* 120 MG PO SCH (09:31)
[2019-06-08] MEDS: Carvedilol TAB* 25 MG PO SCH ×2 (09:31→20:24)
[2019-06-08] MEDS: Furosemide TAB* 20 MG PO SCH (09:31)
[2019-06-08] MEDS ORDERED: Levalbuterol 0.63MG/3ML NEB* UNIT OF USE INH ONE ×2 (16:46→16:57)
[2019-06-08] MEDS ORDERED: Naloxone* 0.4 MG/ML 1 ML VIAL IV PRN (16:58)
[2019-06-08] MEDS ORDERED: DiMENhydriNATE IV* 50 MG/ML VIAL IV PUSH PRN (16:58)
[2019-06-08] MEDS ORDERED: Midazolam* 1 MG/ML 5 ML VIAL (5 MG) ONE (17:10)
[2019-06-08] MEDS ORDERED: KETAMINE HCL* 50 MG/ML 10 ML VIAL ONE (17:19)
[2019-06-08] MEDS ORDERED: Ondansetron INJ* 2 MG/ML VIAL ONE (17:24)
[2019-06-08] MEDS ORDERED: Propofol* 10 MG/ML 20 ML BTL ONE (17:31)
[2019-06-08] MEDS: Clotrimazole TROCHE* 10 MG TROCHE PO SCH (20:24)
[2019-06-08] MEDS: Atorvastatin* 10 MG TAB PO SCH (20:24)
[2019-06-08] MEDS: Melatonin 3 MG TAB PO SCH (20:24)
[2019-06-08] MEDS: Tamsulosin CAP* 0.4 MG PO SCH (20:24)
[2019-06-08] MEDS: hydrOXYzine HCL TAB* 10 MG PO PRN (21:47)
--- NOTE | 2019-06-09 00:02 | PRO ---
DATE: 06/08/19 - ROOM #[id number] REFERRING PHYSICIAN: Gokul Ching MD, [facility].* PROCEDURE: Upper gastrointestinal endoscopy and balloon dilation of distal esophagus to 18 mm with TTS balloon. INDICATION: This 74-year-old man with COPD and CO2 retention and cardiomyopathy with elevated BNP, has also complained of dysphagia. It has been predominantly in the morning. He passed a swallowing function study by Speech Pathology yesterday. Barium swallow today was interpreted as a probable esophageal mass. CT scan a few days ago on admission showed thickened wall of the mid to distal esophagus with air above. Given his severe COPD, anesthesia assistance was requested. Informed consent was obtained and the patient was aware of biopsy or dilation are likely outcomes. ENDOSCOPIST: Dr. Saldivar. ANESTHESIOLOGIST: Dr. Marlena Stout. FINDINGS: He is a chronically ill-appearing moderately overweight older man in no overt distress despite CO2 retention. He was positioned left side down. EGD: Larynx - symmetric, limited views. Esophagus - easily entered and the mucosa is normal and then at about 19 to 20, there was a stippled monilia. There was no stricture. Beginning at about 32 cm , there was the impression of a spiral spastic configuration to the esophagus with slight mucosal scarring in the incomplete rings. The scope was steered somewhat around in the corkscrew configuration and the EG junction located at 46. There was no hiatal hernia and no focal stricture at the squamocolumnar junction. Stomach - generally normal contours and rugal folds, cardia, fundus, body and antrum. There was no ulcer. Duodenum - the pylorus, bulb and second through fourth portions appeared normal. The scope was brought back to the cardia and a TTS balloon inserted 15 to 18 mm. It was brought up to the distal esophagus with the scope tip at about 38 and the balloon inflated to 15, then 16.5, then 18 mm with only the latter creating slight splits and some minimal blood tinge in the lumen. The scope was then brought up to the mid esophagus at about 30 and the TTS balloon at about 34 and inflations from 16.5 to 18 done. A final 18 dilation distally was done. There were multiple small superficial bruise henry, but no defining split. IMPRESSION: Esophageal spasm - no masses seen. Further dilations can be considered depending upon the result today. [id number]/[facility] #: [id number] [facility]
[2019-06-09] MEDS: Levothyroxine TAB* 50 MCG TAB PO SCH (06:03)
[2019-06-09 06:10] LABS: Calcium 8.9 mg/dL (8.6-10.3); EGFR African American 160.2 (>60); EGFR Non-African American 132.4 (>60); Magnesium 1.7 mg/dL (1.9-2.7); Potassium 4.1 mmol/L (3.5-5.0)
[2019-06-09] MEDS ORDERED: Magnesium Sulfate 1 GM IV* 1 GM/100 ML BAG IV ONE (07:17)
[2019-06-09] MEDS: Mometasone/Formoter 200/5 MDI INH SCH (07:30)
[2019-06-09] MEDS: SPIRIVA Respimat* (tiotropium) 2.5 mcg/inh Inhaler INH SCH (07:31)
[2019-06-09] MEDS: Finasteride TAB* 5 MG PO SCH (08:04)
[2019-06-09] MEDS: Lactobacillus Acidophilus* 1 TAB PO SCH (08:04)
[2019-06-09] MEDS: Clotrimazole TROCHE* 10 MG TROCHE PO SCH ×2 (08:04→14:13)
[2019-06-09] MEDS: Sertraline* 50 MG TAB PO SCH (08:04)
[2019-06-09] MEDS: Furosemide TAB* 20 MG PO SCH (08:05)
[2019-06-09] MEDS: Folic Acid TAB* 1 MG PO SCH (08:05)
[2019-06-09] MEDS: Pantoprazole TAB * 40 MG TAB PO SCH (08:06)
[2019-06-09] MEDS: Carvedilol TAB* 25 MG PO SCH (08:06)
[2019-06-09] MEDS: Isosorbide Mononitrate ER TAB* 30 MG PO SCH (08:06)
[2019-06-09] MEDS: Thiamine TAB* 100 MG TAB PO SCH (08:06)
[2019-06-09] MEDS: Magnesium Oxide TAB* 400 MG PO SCH (08:06)
[2019-06-09] MEDS: Nystatin CREAM* 15 GM TUBE TOPICAL SCH (08:07)
[2019-06-09] MEDS: Diltiazem CD CAP* 120 MG PO SCH (08:08)
[2019-06-09] MEDS: Insulin LISPRO* 1 UNITS UNIT SUBCUT SCH ×2 (09:29→12:38)
[2019-06-09 11:26] VITALS: BP 99/63
--- NOTE | 2019-06-09 11:32 | CONSULT ---
Palliative / Hospice Consult Ordering Provider: Maddie Rangel - PCP-BRITTANY Parish Referal Reason: Goals of care/no bowel meds/no narcotics - Subjective Code Status: Full Code Advance Directives Location: With Family - History or Present Illness History or Present Illness: 74 yo male with COPD and diastolic CHF presents with SOB from [facility]. PMH is significant for COPD on 2 liters & BiPAP at night which he doesn't wear, DM type 2, afib, hypothyroid, GERD and HTN. 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 Studies CXR-COPD, EKG-afib, CTA-showed esophagitis, mild pulmonary congestion with small pleural effusion, H/H 12/36, BUN/Cr 13/.73 , egfr 105.6, alb 3.5, BNP 343, esophagus xray-circumferential lesions in proximal third of esophagus suspicious for neoplasm and egd showed spasm which was dilated, no lesion & no strictures. Pt was admitted with acute on chronic respiratory hypoxic failure and COPD. Pt has had 2 prior admissions 04/09-2018 for respiratory issues and 05/15- for acute on chronic CHF. All history is from the pt, sister and medical record. Lab Values: Abnormal Lab Results 06/08/19 06/08/19 06/09/19 11:32 15:57 05:35 Sodium 136 Potassium 4.1 Chloride 96 L Carbon Dioxide 38 H Anion Gap 2 BUN 9 Creatinine 0.60 L Est GFR ( Amer) 160.2 Est GFR (Non-Af Amer) 132.4 BUN/Creatinine Ratio 15.0 Glucose 97 POC Glucose (mg/dL) 125 H 125 H Calcium 8.9 Magnesium 1.7 L 06/09/19 08:14 Sodium Potassium Chloride Carbon Dioxide Anion Gap BUN Creatinine Est GFR ( Amer) Est GFR (Non-Af Amer) BUN/Creatinine Ratio Glucose POC Glucose (mg/dL) 131 H Calcium Magnesium Laboratory Last Values WBC 4.8 10^3/uL (3.5-10.8) 06/08/19 05:56 RBC 4.15 10^6 /uL (4.18-5.48) L 06/08/19 05:56 Hgb 12.0 g/dL (14.0-18.0) L 06/08/19 05:56 Hct 36 % (42-52) L 06/08/19 05:56 MCV 86 fL (80-94) 06/08/19 05:56 MCH 29 pg (27-31) 06/08/19 05:56 MCHC 34 g/dL (31-36) 06/08/19 05:56 RDW 15 % (10-15) 06/08/19 05:56 Plt Count 171 10^3/uL (150-450) 06/08/19 05:56 MPV 7.5 fL (7.4-10.4) 06/08/19 05:56 Neut % (Auto) 58.5 % 06/08/19 05:56 Lymph % (Auto) 27.2 % 06/08/19 05:56 [place] % (Auto) 11.1 % 06/08/19 05:56 Eos % (Auto) 2.8 % 06/08/19 05:56 Baso % (Auto) 0.4 % 06/08/19 05:56 Absolute Neuts (auto) 2.8 10^3/ul (1.5-7.7) 06/08/19 05:56 Absolute Lymphs (auto) 1.3 10^3/ul (1.0-4.8) 06/08/19 05:56 Absolute Monos (auto) 0.5 10^3/ul (0-0.8) 06/08/19 05:56 Absolute Eos (auto) 0.1 10^3/ul (0-0.6) 06/08/19 05:56 Absolute Basos (auto) 0.0 10^3/ul (0-0.2) 06/08/19 05:56 Absolute Nucleated RBC 0.0 10^3/ul 06/08/19 05:56 Nucleated RBC % 0.2 06/08/19 05:56 INR (Anticoag Therapy) 1.10 (0.82-1.09) H 06/04/19 09:39 APTT 23.6 seconds (26.0-38.0) L 06/04/19 09:39 D-Dimer, Quantitative 611 ng/mL (Less Than 230) H 06/04/19 09:39 ABG pH 7.43 (7.35-7.45) 06/07/19 07:50 ABG pCO2 65 mmHg (35-45) H 06/07/19 07:50 ABG pO2 77 mmHg (80-100) L 06/07/19 07:50 ABG HCO3 36.9 mmol/L (19-31) H 06/07/19 07:50 ABG O2 Saturation 97.3 % (94.0-98.0) 06/07/19 07:50 ABG Base Excess 15.5 mmol/L (-2.0-2.0) H 06/07/19 07:50 Sodium 136 mmol/L (135-145) 06/09/19 05:35 Potassium 4.1 mmol/L (3.5-5.0) 06/09/19 05:35 Chloride 96 mmol/L (101-111) L 06/09/19 05:35 Carbon Dioxide 38 mmol/L (22-32) H 06/09/19 05:35 Anion Gap 2 mmol/L (2-11) 06/09/19 05:35 BUN 9 mg/dL (6-24) 06/09/19 05:35 Creatinine 0.60 mg/dL (0.67-1.17) L 06/09/19 05:35 Est GFR ( Amer) 160.2 (>60) 06/09/19 05:35 Est GFR (Non-Af Amer) 132.4 (>60) 06/09/19 05:35 BUN/Creatinine Ratio 15.0 (8-20) 06/09/19 05:35 Glucose 97 mg/dL (70-100) 06/09/19 05:35 POC Glucose (mg/dL) 131 mg/dL (70-100) H 06/09/19 08:14 Calcium 8.9 mg/dL (8.6-10.3) 06/09/19 05:35 Magnesium 1.7 mg/dL (1.9-2.7) L 06/09/19 05:35 Total Bilirubin 0.50 mg/dL (0.2-1.0) 06/04/19 09:39 AST 11 U/L (13-39) L 06/04/19 09:39 ALT 12 U/L (7-52) 06/04/19 09:39 Alkaline Phosphatase 49 U/L (34-104) 06/04/19 09:39 Ammonia 42 mcmol/L (16-53) 06/06/19 06:41 Troponin I 0.01 ng/mL (<0.03) 06/06/19 14:49 B-Natriuretic Peptide 183 pg/mL (<=100) H 06/08/19 05:56 Total Protein 6.1 g/dL (6.4-8.9) L 06/04/19 09:39 Albumin 3.5 g/dL (3.2-5.2) 06/04/19 09:39 Globulin 2.6 g/dL (2-4) 06/04/19 09:39 Albumin/Globulin Ratio 1.3 (1-3) 06/04/19 09:39 - Objective Active Medications: Acetaminophen (Tylenol Tab*) 650 mg PO Q6H PRN PRN Reason: PAIN-MILD/TEMP >/= 100.4 Last Admin: 06/05/19 09:03 Dose: 650 mg Albuterol/Ipratropium (Duoneb (Albuterol 2.5 Mg/Ipratropium 0.5 Mg)) 1 neb INH Q4H PRN PRN Reason: WHEEZING Atorvastatin Calcium (Lipitor*) 10 mg PO BEDTIME [facility] Last Admin: 06/08/19 20:24 Dose: 10 mg Carvedilol (Coreg Tab*) 25 mg PO BID [facility] Last Admin: 06/09/19 08:06 Dose: 25 mg Clotrimazole (Mycelex Moises*) 10 mg PO QID [facility] Last Admin: 06/09/19 08:04 Dose: 10 mg Dextrose (Dextrose 50% Vial 50 Ml*) 25 ml IV PUSH .FOR FS < 60 - SS PRN PRN Reason: FS < 60 Diltiazem HCl (Cardizem Cd Cap*) 120 mg PO DAILY [facility] Last Admin: 06/09/19 08:08 Dose: 120 mg Finasteride (Proscar Tab*) 5 mg PO DAILY [facility] Last Admin: 06/09/19 08:04 Dose: 5 mg Folic Acid (Folvite Tab*) 1 mg PO DAILY [facility] Last Admin: 06/09/19 08:05 Dose: 1 mg Furosemide (Lasix Tab*) 40 mg PO DAILY [facility] Last Admin: 06/09/19 08:05 Dose: 40 mg Hydroxyzine HCl (Atarax Tab*) 10 mg PO Q4H PRN PRN Reason: ANXIETY Last Admin: 06/08/19 21:47 Dose: 10 mg Insulin Human Lispro (Humalog*) 0 units SUBCUT [facility]; Protocol Last Admin: 06/09/19 09:29 Dose: 1 units Isosorbide Mononitrate (Imdur Er Tab*) 30 mg PO DAILY [facility] Last Admin: 06/09/19 08:06 Dose: 30 mg Lactobacillus Rhamnosus (Lactobacillus Acidophilus*) 1 tab PO DAILY [facility] Last Admin: 06/09/19 08:04 Dose: 1 tab Levothyroxine Sodium (Synthroid Tab*) 50 mcg PO DAILY@0600 [facility] Last Admin: 06/09/19 06:03 Dose: 50 mcg Magnesium Oxide (Magox 400 Tab*) 800 mg PO DAILY [facility] Last Admin: 06/09/19 08:06 Dose: 800 mg Melatonin (Melatonin) 3 mg PO BEDTIME [facility] Last Admin: 06/08/19 20:24 Dose: 3 mg Mometasone Furoate/Formoterol Fumar (Dulera 200/5 Mdi*) 2 puff INH BID [facility] Last Admin: 06/09/19 07:30 Dose: 2 puff Nystatin (Nystatin Cream*) 1 applic TOPICAL BID [facility] Last Admin: 06/09/19 08:07 Dose: 1 applic Ondansetron HCl (Zofran Odt Tab*) 4 mg PO Q6H PRN PRN Reason: NAUSEA/VOMITING Pantoprazole Sodium (Protonix Tab*) 40 mg PO DAILY [facility] Last Admin: 06/09/19 08:06 Dose: 40 mg Sertraline HCl (Zoloft*) 50 mg PO DAILY [facility] Last Admin: 06/09/19 08:04 Dose: 50 mg Simethicone (Mylicon Tab*) 80 mg PO Q6H PRN PRN Reason: abdomen pain Tamsulosin HCl (Flomax Cap*) 0.4 mg PO BEDTIME [facility] Last Admin: 06/08/19 20:24 Dose: 0.4 mg Thiamine HCl (Vitamin B-1 Tab*) 100 mg PO DAILY [facility] Last Admin: 06/09/19 08:06 Dose: 100 mg Tiotropium [place] (Spiriva Respimat 2.5 Mcg) 2 puff INH DAILY [facility] Last Admin: 06/09/19 07:31 Dose: 2 puff Vital Signs: Vital Signs: Temp Pulse Resp BP Pulse Ox 96.9 F 88 20 123/72 94 06/09/19 07:15 06/09/19 07:34 06/09/19 08:00 06/09/19 07:15 06/09/19 07:34 Patient Weight: Weight 107.728 kg Intake and Output: Intake & Output 06/07/19 06/08/19 06/09/19 06/10/19 06:59 06:59 06:59 06:59 Intake Total 1907 1960 590 360 Output Total 6288 739 1763 410 Balance 507 1060 -1010 -50 Weight 107.32 kg 107.728 kg Intake: IV Fluids 107 Mg++ 107 Oral 1800 1960 590 360 Output: Urine 0 600 Bacon 9216 737 9249 350 Emesis 60 ADLs: Meal Record Start: 06/04/19 16: 33 Freq: DAILY@0900,1400,1800 Status: Active Protocol: Created 06/04/19 16:33 System (Rec: 06/04/19 16:33 System TELE-C15) Document 06/04/19 18:00 [id number] (Rec: 06/04/19 18:39 [id number] TELE-C01) Document 06/05/19 08:56 [id number] (Rec: 06/05/19 08:56 OIE0764 TELE-C09) Document 06/05/19 13:30 [id number] (Rec: 06/05/19 13:30 EDV0838 TELE-C09) Document 06/05/19 18:00 TQN0853 (Rec: 06/05/19 18:16 [id number] TELE-C09) Document 06/06/19 09:00 [id number] (Rec: 06/06/19 11:46 IUY0715 TELE-C09) Document 06/06/19 14:00 DEQ4387 (Rec: 06/06/19 15:05 RPV2160 TELE-C07) Document 06/06/19 18:00 JIG2755 (Rec: 06/06/19 18:10 [id number] TELE-C01) Document 06/07/19 09:00 OKL7338 (Rec: 06/07/19 09:09 [id number] TELE-C05) Document 06/07/19 13:16 QCO9599 (Rec: 06/07/19 13:17 NEF3645 TELE-C05) Document 06/07/19 18:00 UTE4958 (Rec: 06/07/19 18:29 BAP4913 TELE-C06) Document 06/08/19 09:00 OXK8081 (Rec: 06/08/19 09:53 EPK1016 TELE-C07) Document 06/08/19 13:25 QQA2322 (Rec: 06/08/19 13:25 CYD1035 TELE-C07) Document 06/08/19 18:00 XQW3493 (Rec: 06/08/19 20:19 KDR2112 TELE-C09) Document 06/08/19 20:44 VYB3575 (Rec: 06/08/19 20:44 CBA0920 TELE-C09) Document 06/09/19 09:00 KDN7914 (Rec: 06/09/19 09:20 [id number] TELE-C07) Intake and Output Start: 06/04/19 09: 17 Freq: Status: Cancelled Protocol: Created 06/04/19 09:17 System (Rec: 06/04/19 09:17 System EDRM-C18) Document 06/04/19 11:29 NAD1223 (Rec: 06/04/19 11:31 TLR7075 ED-C31) Document 06/04/19 12:50 ZKY0070 (Rec: 06/04/19 13:26 MQI2299 ED-C31) Intake and Output Start: 06/04/19 15: 16 Freq: 06,14,2200 Status: Active Protocol: Created 06/04/19 15:16 [id number] (Rec: 06/04/19 15:16 BKG JAMAAL-BG12) Document 06/04/19 22:00 NSZ1095 (Rec: 06/04/19 22:59 CPJ0669 MED-M27) Document 06/05/19 06:00 VWT0417 (Rec: 06/05/19 06:06 RVK6006 TELE-C10) Document 06/05/19 06:55 ZJM5715 (Rec: 06/05/19 06:55 ZVQ9314 TELE-C09) Document 06/05/19 08:08 TNQ7343 (Rec: 06/05/19 08:09 MLF3206 TELE-C09) Document 06/05/19 13:54 FYJ6251 (Rec: 06/05/19 13:54 TIE6758 TELE-C09) Document 06/05/19 21:56 IYY7767 (Rec: 06/05/19 21:57 QJZ9078 TELE-C01) Document 06/06/19 06:00 CKG6050 (Rec: 06/06/19 06:33 GUH8722 TELE-C07) Document 06/06/19 22:00 BQC7943 (Rec: 06/06/19 22:38 XBD4424 TELE-C09) Document 06/07/19 03:08 EMI0576 (Rec: 06/07/19 03:08 IUH7544 TELE-C08) Document 06/07/19 06:00 RQQ4437 (Rec: 06/07/19 06:05 KGK5663 TELE-C09) Document 06/07/19 14:00 ASQ6545 (Rec: 06/07/19 14:59 KLF4348 TELE-C05) Document 06/07/19 16:51 IXY8254 (Rec: 06/07/19 16:51 GBA4788 TELE-C05) Document 06/07/19 21:35 BIV4970 (Rec: 06/07/19 21:36 JKP1822 TELE-C05) Document 06/08/19 06:00 QTA6640 (Rec: 06/08/19 06:29 RNT9861 TELE-C09) Document 06/08/19 14:00 JFT6977 (Rec: 06/08/19 15:07 XGH9249 TELE-C07) Document 06/08/19 20:44 RIU5204 (Rec: 06/08/19 20:44 ZKV6637 TELE-C09) Document 06/08/19 20:46 NXS9972 (Rec: 06/08/19 20:47 SIN2682 TELE-C09) Document 06/09/19 06:00 LIP9984 (Rec: 06/09/19 06:36 YCP3671 TELE-C10) Document 06/09/19 08:44 JBT4408 (Rec: 06/09/19 08:44 XIS1454 TELE-C08) Intake and Output Start: 06/04/19 16: 33 Freq: DAILY@0600,1400,2200 Status: Inactive Protocol: Created 06/04/19 16:33 System (Rec: 06/04/19 16:33 System TELE-C15) Document 06/04/19 18:39 TNO8970 (Rec: 06/04/19 18:39 XGH2914 TELE-C01) Document 06/04/19 22:00 JND5403 (Rec: 06/04/19 22:31 UPX7724 TELE-C01) Eyes: No Scleral Icterus Ears/Nose/Mouth/Throat: NL Teeth, Lips, Gums Neck: NL Appearance and Movements; NL JVP Cardiovascular: NL Sounds; No Murmurs; No JVD, - - irregularly irregular, no m/r /g Respiratory: Symmetrical Chest Expansion and Respiratory Effort Abdominal: NL Sounds; No Tenderness; No Distention Extremities: - - 1+ edema feet and lower ext b/l. compression stockings on. Neurological: Alert and Oriented x 3, NL Muscle Strength and Tone - Assessment Assessment: 74yo male with acute on chronic respiratory hypoxic failure and worsening COPD - Plan Consult Plan (MU): Palliative Plan: Long discussion with pt about goals of care. Pt doesn't like [facility] and wants to move out and live with one of his siblings. Spoke with sister and she feels they will not be able to care for him at home. He is very forgetful, forgets to take pills and can't care for himself. She noted they are looking into a [place]. One of his brothers may still consider caring for him but sister doesn't think he understands how much care is involved. Pt doesn't want to wear BiPAP because it's uncomfortable and feels it doesn't help him. He doesn't have a lot of insight into his disease process but does feel he is getting a little worse. Pt is sad at times but still does enjoy things. Feels his quality of life is the same used to read but doesn't now due to his vision, watches TV. Discussed MOLST he wants to give CPR a try but doesn't want to be intubated or have BiPAP or have a feeding tube. His HCP is his sister. She asked prognosis of his illnesses which I explained the chronic disease trajectory and he is not eligible for hospice as of now. Pt is to go back to [facility]. KPS 50%, PPS 50% - Time On Unit Date of Evaluation: 06/09/19 Hospice Consult Time in: 10:30 Hospice Consult Time Out: 11:30 Hospice Consult Time Total: 60 > 50% of Time Spend In Counseling or Coordinating Care: Yes
--- NOTE | 2019-06-09 13:30 | DS ---
CC: Dr. Saldivar; Dr. Janelle Cote DATE OF ADMISSION: 06/04/2019. DATE OF DISCHARGE: 06/09/2019. PRIMARY CARE PHYSICIAN: Sylvie Parish NP. PRIMARY DIAGNOSES: 1. Acute on chronic heart failure preserved ejection fraction 2. Esophageal spasm s/p dilatation. 3. Esophageal candidiasis. CONSULTS: Dr. Saldivar of GI and Dr. Janelle Cote of Palliative Care. PROCEDURES: EGD on 06/08/2019. DISCHARGE MEDICATIONS: 1. Clotrimazole Moises 10 mg q.i.d. for 13 more days. 2. Furosemide 40 mg daily. 3. Thiamine 100 mg daily. 4. Atorvastatin 10 mg at bedtime. 5. Carvedilol 25 mg every 12 hours. 6. Diltiazem 120 mg daily. 7. Isosorbide Mononitrate 30 mg daily. 8. Symbicort two puffs twice a day. 9. Spiriva one cap inhalation daily. 10. DuoNebs every 4 hours as needed for shortness of breath. 11. Finasteride 5 mg daily. 12. Sertraline 50 mg daily. 13. Tamsulosin 0.4 mg daily. 14. Ondansetron 4 mg orally every 6 hours as needed for nausea. 15. Simethicone 80 mg every 6 hours as needed for gas pain. 16. Omeprazole 20 mg daily. 17. Metformin 1,000 mg twice a day. 18. Levothyroxine 50 mcg daily. 19. Lactobacillus one capsule daily. 20. Folic acid 1 mg daily. 21. Thiamine 100 mg daily. 22. Magnesium Oxide 800 mg daily. 23. Nystatin cream twice a day as needed for rash. 24. Tums every 6 hours as needed for epigastric pain. HISTORY OF PRESENT ILLNESS: Mr. Stone is a 74-year-old man with HFpEF, COPD with chronic hypercapnic and hypoxic respiratory failure on 2L of oxygen at home, DM2, atrial fibrillation, not on anticoagulation, and hypothyroidism who is presenting with concern for weakness and shortness of breath at [place]. Mr. Stone has had two hospitalizations recently. The first on 04/29/2019 through the ICU for acute on chronic respiratory failure secondary to COPD. He was discharged on May 10 and returned May 15 with altered mental status and a fall thought to be secondary to acute on chronic hypercapnic respiratory failure, metabolic encephalopathy due to hypercapnia, diastolic heart failure, and pseudomonas urinary tract infection with urinary retention. He was then discharged on May 20 to [facility]. The patient states that since he has been there he has been slowly deteriorating, had worsening shortness of breath, and increased lower extremity edema. He states that he wears two liters nasal cannula during the day only and does not wear his prescribed BiPAP or oxygen at night. He states that over the last month he has developed new nausea and vomiting in the morning. He describes vomiting after he takes one bite of food in the morning, but then is able to tolerate oral intake as the day progresses. He is not sure when this started, but it possibly was around April. He denies abdominal pain, diarrhea, or constipation. He is reporting lower extremity edema and shortness of breath, but no chest pain or palpitations. The patient's family reports his mental status is at baseline at this time. On the day of presentation, he was found to be more short of breath and hypoxic and refusing oral intake, so he was brought to the hospital for evaluation. HOSPITAL COURSE: In the emergency room, the patient had newly increased oxygen requirement, but was afebrile and he was not tachycardic. Chest x-ray was without acute process and a CTA confirmed mild interstitial edema. Incidentally, the CTA showed long segment mural thickening of the esophagus, as well as multiple mediastinal lymph nodes. EKG was with atrial fibrillation without evidence of ischemia. His labs were otherwise unremarkable, including negative troponins. He was admitted for heart failure exacerbation given worsening shortness of breath, lower extremity edema, and interstitial edema on CTA. He responded well to IV Lasix and he reports that his shortness of breath and lower extremity edema significantly improved; however, he was noted on his second day of admission to cough and choke after eating eggs and a bagel, and eventually vomiting in the morning, so GI was consulted, who recommended barium swallowing as well as an EGD. The barium swallow showed circumferential mucosa and submucosal lesion of the proximal third of the esophagus extending for approximately 6.3 cm in length which was concerning for an esophageal neoplasm. EGD was without findings concerning for mass, but was notable for esophageal spasm and candidiasis, and GI recommended clotrimazole troches and continued treatment for GERD. By the day of discharge, the patient reports that he is tolerating food better. His presenting symptoms had resolved and he was ready to return to [facility]. Given that the patient frequently declined BiPAP and expressed that he had significant concerns about returning to the hospital so frequently, he was amenable to a palliative care consult. The patient seemed to have poor insight into his disease process. MOLST form was reviewed with the patient and he expressed that he does not want intubation or BiPAP or feeding tube; however, he states he wants to "give CPR a try." PERTINENT DIAGNOSTIC STUDIES: 1. CBC notable for anemia to 12 which is near the patient's baseline with MCV of 86. 2. BMP with creatinine of 0.06. 3. ABG with PCO2 65 and pH 7.43. 4. Chest x-ray with elevated lung volumes corresponding with a history of obstructive lung disease. No acute cardiopulmonary process evident. 5. Chest CTA with borderline suboptimal; no compelling filling defects identified from the main to the segmental branches to indicate pulmonary embolism; suggestion of mild pulmonary vascular congestion with small pleural effusions and passive reflux of contrast to the liver; suggestion of potential long segment mural thickening of the esophagus; correlate for potential symptoms of esophagitis and consider follow-up esophagram or upper GI for further assessment if deemed clinically appropriate; multiple mediastinal lymph nodes with a few mildly enlarged nodes. 6. Transthoracic echocardiogram with LV systolic function normal and EF 55 to 60 percent, wall motion normal without regional wall motion abnormalities, LA severely dilated, mitral valve without significant regurg and aortic valve without evidence of stenosis. Compared to the study from last month, there is no change. Diastolic function parameters are indeterminate. 7. 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 8. EGD notable for esophageal spasms without masses seen. The esophagus was dilated during this exam. There was stippled monilia in the esophagus. DISCHARGE PLAN: The patient should follow-up with his primary care physician for ongoing management of his chronic medical problems. He was also referred to Dr. Harrington for his severe COPD on triple therapy with hypercarbic and hypoxic respiratory failure. Given the esophageal candidiasis seen on EGD with inflammation seen on CTA, he was discharged on Clotrimazole to complete a total of a 14 day course. He was also discharged on a higher dose of Furosemide. Now he should take 40 mg daily and continue to have ongoing daily weights for titration of his diuretic. The patient was educated on return precautions which include, but are not limited to fevers, chest pain, shortness of breath or chills. He should eat a healthy diet low in processed foods and resume activity as tolerated. DISPOSITION: To [facility]. CONDITION ON DISCHARGE: Improved. TIME SEEN: Approximately 60 minutes were spent on the discharge of this patient , more than half of which was spent with care coordination at bedside for interview and exam. [id number]/[facility] #: [id number] SAMAN
== END 2019-06-09 13:25 | DRG 291 ==
LOC: ED 09:06 → MEDTELE 15:14 → OBSVTOIN 15:14
PROVIDERS: ADMIT Internal Medicine; ATTEND Internal Medicine
PROC: 0D758ZZ Dilation of Esophagus, Via Natural or Artificial Opening Endoscopic (ICD-10-PCS; principal; 2019-06-08 14:30)
DX: I11.0 Hypertensive heart disease with heart failure (principal); J96.21 Acute and chronic respiratory failure with hypoxia; J96.12 Chronic respiratory failure with hypercapnia; E87.2 Acidosis; B37.81 Candidal esophagitis; K22.4 Dyskinesia of esophagus; E11.9 Type 2 diabetes mellitus without complications; I50.33 Acute on chronic diastolic (congestive) heart failure; I48.91 Unspecified atrial fibrillation; J44.9 Chronic obstructive pulmonary disease, unspecified; E03.9 Hypothyroidism, unspecified; F32.9 Major depressive disorder, single episode, unspecified; R33.9 Retention of urine, unspecified; I42.9 Cardiomyopathy, unspecified; M19.90 Unspecified osteoarthritis, unspecified site; E66.01 Morbid (severe) obesity due to excess calories; R13.12 Dysphagia, oropharyngeal phase; K21.0 Gastro-esophageal reflux disease with esophagitis; R59.0 Localized enlarged lymph nodes; I49.5 Sick sinus syndrome; Z79.84 Long term (current) use of oral hypoglycemic drugs; Z87.891 Personal history of nicotine dependence; Z68.32 Body mass index [BMI] 32.0-32.9, adult; Z79.890 Hormone replacement therapy; Z79.899 Other long term (current) drug therapy
CPT/HCPCS: 36415; 36600; 71046; 71275; 74220; 80048; 80053; 82140; 82272; 82803; 83735; 83880; 84132; 84425; 84484; 85025; 85379; 85610; 85730; 93005; 93306; 94640; 94660; 96374; 99285; A9270-GY; J1644; J1650; J1940; J2250; J2405; J2704; J3475; J3535; Q9967

== ENCOUNTER 2019-07-03 09:45 | Emergency (ER) | payer OTHER ==
[2019-07-03] MEDS ORDERED: Albuterol/Ipratropium NEB.SOL* Albuterol 2.5 MG/Ipratropium 0.5 MG 3 ML INH ONE (10:00)
--- NOTE | 2019-07-03 10:04 | ED ---
Respiratory - HPI Summary HPI Summary: Patient is a 74 y/o M presenting to [facility] via EMS for a chief complaint of dyspnea. Per EMS, patient's sister called for concern over the patient retaining CO2 and abdominal breathing. On EMS arrival, patient had an oxygen saturation of 92% and had diminished breath sounds. Patient does not have any complaints and denies cough, fever, headache, or myalgia. Patient is unsure why he is at [facility] as he states he feels well. Patient typically has a 2 L oxygen nasal cannula, and breathing treatment at home, which he completed on the morning of 07/03/19. He was given albuterol by EMS. He denies any aggravating factors. Last hospitalization was 3 weeks ago at [facility]. PMHx is significant for DM , atrial fibrillation, and COPD. - History of Current Complaint Chief Complaint: EDRespiratoryDistress Stated Complaint: DIFFICULTY BREATHING PER EMS Time Seen by Provider: 07/03/19 09:47 Hx Obtained From: Patient, EMS Onset/Duration: Sudden Onset, Still Present Timing: Constant Initial Severity: Mild Current Severity: Mild Pain Intensity: 0 Character: Dyspnea at Rest Sputum Amount: None Aggravating Factor(s): Nothing Alleviating Factor(s): Nothing Associated Signs and Symptoms: Dyspnea - Allergy/Home Medications Allergies/Adverse Reactions: Allergies Allergy/AdvReac Type Severity Reaction Status Date / Time No Known Allergies Allergy Verified 06/04/19 09:17 PMH/Surg Hx/FS Hx/Imm Hx Previously Healthy: Yes Endocrine/Hematology History: Reports: Hx Diabetes Denies: Hx Anticoagulant Therapy, Hx Thyroid Disease Cardiovascular History: Reports: Hx Atrial Fibrillation, Hx Hypertension, Other Cardiovascular Problems/Disorders - afib Denies: Hx Pacemaker/ICD Respiratory History: Reports: Hx Asthma, Hx Chronic Obstructive Pulmonary Disease (COPD) - YES 02 DEPENDENT AT HOME, Other Respiratory Problems/Disorders - Agent orange exposure History: Reports: Hx Benign Prostatic Hyperplasia Denies: Hx Renal Disease Musculoskeletal History: Reports: Hx Gout Sensory History: Reports: Hx Contacts or Glasses Denies: Hx Cataracts, Hx Glaucoma, Hx Legally Blind, Hx Deafness, Hx Hearing Aid, Other Sensory Impairments Opthamlomology History: Reports: Hx Contacts or Glasses Denies: Hx Cataracts, Hx Glaucoma, Hx Legally Blind, Other Sensory Impairments EENT History: Denies: Hx Deafness Neurological History: Denies: Hx Dementia, Hx Seizures Psychiatric History: Reports: Hx Post Traumatic Stress Disorder - [place] war Denies: Hx Panic Disorder, Hx Substance Abuse - Surgical History Surgical History: None Surgery Procedure, Year, and Place: None Hx Anesthesia Reactions: No Infectious Disease History: No Infectious Disease History: Denies: Hx Hepatitis, Hx Human Immunodeficiency Virus (HIV), Traveled Outside the [place] in Last 30 Days - Family History Known Family History: Negative: Diabetes - Social History Occupation: Retired Alcohol Use: None Alcohol Amount: 4-5 per day Hx Substance Use: No Substance Use Type: Reports: None Hx Tobacco Use: Yes Smoking Status (MU): Former Smoker Review of Systems Negative: Fever Positive: Other - Positive dyspnea. Negative: Cough Negative: Myalgia Negative: Headache All Other Systems Reviewed And Are Negative: Yes Physical Exam - Summary Physical Exam Summary: Constitutional: Well-developed, Well-nourished, Alert. (-) Distressed. Nasal cannula. Skin: Warm, Dry HENT: Normocephalic; Atraumatic Eyes: Conjunctiva normal Neck: Musculoskeletal ROM normal neck. (-) JVD, (-) Stridor, (-) Nuchal rigidity Cardio: Rhythm regular, rate normal, Heart sounds normal; Intact distal pulses; Radial pulses are 2+ and symmetric. (-) Murmur Pulmonary/Chest wall: Effort normal. (-) Respiratory distress,, (-) Rales. Mild expiratory wheezing. Abd: Soft, (-) tenderness, (-) Distension, (-) Guarding, (-) Rebound Musculoskeletal: (-) Edema Lymph: (-) Cervical adenopathy Neuro: Alert, Oriented x3 Psych: Mood and affect Normal Triage Information Reviewed: Yes Vital Signs On Initial Exam: Initial Vitals Temp Pulse Resp BP Pulse Ox 97.3 F 76 18 124/92 92 07/03/19 09:47 07/03/19 09:47 07/03/19 09:47 07/03/19 09:47 07/03/19 09:47 Vital Signs Reviewed: Yes Procedures - Sedation Patient Received Moderate/Deep Sedation with Procedure: No Diagnostics - Vital Signs Vital Signs Temp Pulse Resp BP Pulse Ox 07/03/19 09:53 79 93 07/03/19 09:51 78 124/92 92 07/03/19 09:47 97.3 F 76 18 124/92 92 - Laboratory Result Diagrams: 07/03/19 10:11 07/03/19 10:11 Lab Statement: Any lab studies that have been ordered have been reviewed, and results considered in the medical decision making process. - Radiology Chest X-ray Radiology Interpretation Completed By: Radiologist Summary of Radiographic Findings: Chest X-ray IMPRESSION: 1. SMALL LEFT BASILAR INFILTRATE AND PLEURAL EFFUSION. 2. FINDINGS CONSISTENT WITH COPD AND OLD GRANULOMATOUS DISEASE. Reviewed by Dr. Mclaughlin. Disposition - Course Course Of Treatment: 74-year-old male with a history of diabetes, A. fib, COPD on 2 L nasal cannula at baseline presents with concern for increased of breathing at home. - Physical exam of w well-appearing male, no respiratory distress. Lungs mild expiratory wheezing, given 1 DuoNeb. Patient denies respiratory complaints. Chest x-ray obtained shows a left-sided infiltrate, we' ll treat as pneumonia with Augmentin and erythromycin. Steroids deferred as patient has no obvious increased work of breathing or COPD exacerbation. - Diagnoses Provider Diagnoses: Pneumonia Discharge ED - Sign-Out/Discharge Documenting (check all that apply): Patient Departure - Discharge - Discharge Plan Condition: Stable Disposition: HOME Prescriptions: Amoxicillin/Clavulanate TAB* [Augmentin TAB 875*] 875 mg PO BID 5 Days #10 tab Azithromyxin JOSEPH (NF) [Z-Joseph (Zithromax) 250 mg tabs #6] 2 tab PO .TODAY, THEN 1 DAILY #6 tab Patient Education Materials: Bacterial Pneumonia (ED) Referrals: Sylvie Parish [Primary Care Provider] - Additional Instructions: You were seen in the emergency department for breath. Your x-ray showed a small infiltrate on the left side we are treating this as pneumonia. Please take Augmentin twice a day, please take Zithromax and once today. Please follow up with your primary care doctor in next 2-3 days and return to emergency department for trouble breathing, chest pain, worsening or concerning symptoms. It was a pleasure taking care of you today. - Billing Disposition and Condition Condition: STABLE Disposition: Home - Attestation Statements Document Initiated by Scribe: Yes Documenting Scribe: Nilda Campos Provider For Whom Scribe is Documenting (Include Credential): MD Tayler Jenningsibe Attestation: I, Nilda Campos, scribed for Rajwinder Mclaughlin MD on 07/03/19 at 1523. Scribe Documentation Reviewed: Yes Provider Attestation: The documentation as recorded by the scribe, Nilda Campos accurately reflects the service I personally performed and the decisions made by me, Rajwinder Mclaughlin MD Status of Scribe Document: Viewed
--- OUTSIDE RECORDS SUMMARY | 2019-07-03 10:10 | XMS REPORT ---
:1945 Author Organization [facility] Care Team Providers Name Role Phone Unavailable Unavailable Unavailable Problems Condition Condition Condition Status Onset Resolution Last Treating Comments Name Details Category Date Date Treatment Clinician Date Hypertensiv Hypertensiv Diagnosis Active 2018-07 Abigail e heart e heart 08-04 Carrier RN disease disease with heart with heart failure failure Acute on Acute on Diagnosis Active 2018-07 Abigail chronic chronic 08-04 Carrier RN diastolic diastolic (congestive (congestive ) heart ) heart failure failure Chronic Chronic Diagnosis Active Abigail obstructive obstructive 07-07 Carrier RN pulmonary pulmonary disease, disease, unspecified unspecified Chronic Chronic Diagnosis Active Abigail respiratory respiratory 07-07 Carrier RN failure failure with with hypoxia hypoxia Chronic Chronic Diagnosis Active Abigail respiratory respiratory 07-07 Carrier RN failure failure with with hypercapnia hypercapnia Type 2 Type 2 Diagnosis Active Abigail diabetes diabetes 07-07 Carrier RN mellitus mellitus without without complicatio complicatio ns ns Dyskinesia 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 Unspecified Unspecified Diagnosis Active Abigail atrial atrial Carrier RN fibrillatio fibrillatio n n Hypothyroid Hypothyroid Diagnosis Active Abigail ism, ism, Carrier RN unspecified unspecified Dependence Dependence Diagnosis Active Abigail on on Carrier RN supplementa supplementa l oxygen l oxygen 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 [facility] Diagnosis Active Abigail (current) (current) Carrier RN use of use of inhaled inhaled steroids steroids 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 Diagnosis Active Abigail (current) (current) Carrier RN use of oral use of oral hypoglycemi hypoglycemi c drugs c drugs Encounter Encounter Diagnosis Active Abigail for fitting for fitting Carrier RN and and adjustment adjustment of urinary of urinary device device Personal Personal Diagnosis Active Abigail history of history of Carrier RN urinary urinary (tract) (tract) infections infections Pain frequent Pain Mgmt Active 2018-07 Mary pain 2-17 [place] 12:28: [id number] Respiratory dyspnea Respirator Active 2018-07 Mary present y 08-23 [place] 12:28: [id number] 00 Respiratory oxygen Respirator Active 2018-07 Mary treatments y 08-23 [place] in home 12:28: [id number] 00 Respiratory lung sounds Respirator Active 2018-07 Mary deficit y 08-23 [place] 12:28: [id number] 00 Endo/Carlos diabetic Endo/Carlos Active 2018-07 Mary foot care 08-23 [place] 12:28: [id number] 00 Sensory impaired Sensory Active 2018-07 Mary hearing 08-23 [place] 12:28: [id number] 00 Integument skin Integument Active 2018-07 Mary integrity 08-23 [place] risk 12:28: [id number] 00 Nutrition nutritional Nutrition Active 2018-07 Mary restriction 08-23 [place] s 12:28: [id number] 00 Elimination catheter Eliminatio Active 2018-07 Mary present n 08-23 [place] 12:28: [id number] 00 Elimination ostomy Eliminatio Active 2018-07 Mary present n 08-23 [place] 12:28: [id number] 00 Neuro confusion Neuro/Emot Active 2018-07 Mary present ion 08-23 [place] 12:28: [id number] 00 Activity ADL Activity Active 2018-07 Mary assistance 08-23 [place] required 12:28: [id number] 00 Activity self-care Activity Active 2018-07 Mary deficit 08-23 [place] 12:28: [id number] 00 Safety structural Safety Active 2018-07 Mary barriers 08-23 [place] present 12:28: [id number] 00 Safety fall risk Safety Active 2018-07 Mary factor 08-23 [place] present 12:28: [id number] 00 Safety risk for Safety Active 2018-07 Mary hospitaliza 08-23 [place] tion 12:28: [id number] 00 Safety can be left Safety Active 2018-07 Mary alone for 08-23 [place] only short 12:28: [id number] periods 00 Medication oral med Meds Active 2018-07 Mary assistance 08-23 [place] required 12:28: [id number] 00 Medication knowledge/s Meds Active 2018-07 Mary kill 08-23 [place] deficit: pt 12:28: [id number] 00 Medication knowledge/s Meds Active 2018-07 Mary kill 08-23 [place] deficit: cg 12:28: [id number] 00 Medication potential Meds Active 2018-07 Mary clinically 08-23 [place] significant 12:28: [id number] medication 00 issue Musculoskel transfer Musculoske Active 2018-07 Mary etal assistance letal 08-23 [place] required 12:28: [id number] 00 Musculoskel requires Musculoske Active 2018-07 Mary etal human letal 08-23 [place] assist to 12:28: [id number] leave home 00 Allergies, Adverse Reactions, Alerts Allergy Allergy Status Severity Reaction(s) Onset Inactive Treating Comments Name Type Date Date Clinician Unknown None Active Unknown None Unknown No Known Allergies For This Patient Medications Ordered Filled Start Stop Current Ordering Indication Dosage Frequency Signature Comments Components Medication Medication Date Date Medication? Clinician (SIG) Name Name furosemide furosemide 2018-07 Yes Humza Unknown Unknown 20 mg 20 mg 2- Gokul SALAZAR tablet tablet thiamine thiamine 2018-07 Yes [employer] Unknown Unknown HCl HCl 08-23 Gokul SALAZAR (vitamin (vitamin B1) 100 mg B1) 100 mg tablet tablet atorvastati atorvastati 2018-07 Yes Humza Unknown Unknown n 20 mg n 20 mg 2- Gokul SALAZAR tablet tablet carvedilol carvedilol 2018-07 Yes [employer] Unknown Unknown 25 mg 25 mg 2- Gokul SALAZAR tablet tablet DILT-XR 120 DILT-XR 120 2018-07 Yes [employer] Unknown Unknown mg capsule, mg capsule, 2- Gokul SALAZAR extended extended release release isosorbide isosorbide 2018-07 Yes Humza Unknown Unknown mononitrate mononitrate 2- Gokul SALAZAR ER 30 mg ER 30 mg tablet,exte tablet,exte nded nded release 24 release 24 hr hr Symbicort Symbicort 2018-07 Yes [employer] Unknown Unknown 160 mcg-4.5 160 mcg-4.5 2- Gokul SALAZAR mcg/actuati mcg/actuati on HFA on HFA aerosol aerosol inhaler inhaler Spiriva Spiriva 2018-07 Yes Humza Unknown Unknown with with 2- Gokul SALAZAR HandiHaler HandiHaler 18 mcg and 18 mcg and inhalation inhalation capsules capsules ipratropium ipratropium 2018-07 Yes [employer] Unknown Unknown -albuterol -albuterol 2- Gokul SALAZAR 0.5 mg-3 0.5 mg-3 mg(2.5 mg mg(2.5 mg base)/3 mL base)/3 mL nebulizatio nebulizatio n soln n soln finasteride finasteride 2018-07 Yes [employer] Unknown Unknown 5 mg tablet 5 mg tablet 08-23 ,Gokul sertraline sertraline 2018-07 Yes Humza Unknown Unknown 100 mg 100 mg 08-23 ,Gokul tablet tablet tamsulosin tamsulosin 2018-07 Yes [employer] Unknown Unknown 0.4 mg 0.4 mg 08-23 ,Gokul capsule capsule ondansetron ondansetron 2018-07 Yes [employer] Unknown Unknown 4 mg 4 mg 08-23 Gokul SALAZAR disintegrat disintegrat ing tablet ing tablet simethicone simethicone 2018-07 Yes [employer] Unknown Unknown 80 mg 80 mg 08-23 ,Gokul chewable chewable tablet tablet omeprazole omeprazole 2018-07 Yes [employer] Unknown Unknown 20 mg 20 mg 08-23 ,Gokul capsule,del capsule,del ayed ayed release release metFORMIN metFORMIN 2018-07 Yes Humza Unknown Unknown 1,000 mg 1,000 mg 08-23 ,Gokul tablet tablet levothyroxi levothyroxi 2018-07 Yes [employer] Unknown Unknown ne 50 mcg ne 50 mcg 08-23 ,Gokul tablet tablet Lactobac. Lactobac. 2018-07 Yes [employer] Unknown Unknown acidophilus acidophilus 08-23 Gokul SALAZAR -Bifido. -Bifido. animalis 10 animalis 10 billion billion cell cell chewable chewable tablet tablet folic acid folic acid 2018-07 Yes Humza Unknown Unknown 1 mg tablet 1 mg tablet - ,Gokul magnesium magnesium 2018-07 Yes Humza Unknown Unknown oxide 400 oxide 400 08-23 ,Gokul mg (241.3 mg (241.3 mg mg magnesium) magnesium) tablet tablet colchicine colchicine 2018-07 Yes Humza Unknown Unknown 0.6 mg 0.6 mg 2 ,Gokul tablet tablet cholecalcif cholecalcif 2018-07 Yes [employer] Unknown Unknown murray murray - Gokul SALAZAR (vitamin (vitamin D3) 1,000 D3) 1,000 unit unit capsule capsule Tums 200 mg Tums 200 mg 2019-1 Yes Humza Unknown Unknown calcium calcium 2- Gokul SALAZAR (500 mg) (500 mg) chewable chewable tablet tablet oxygen oxygen 2018-07 Yes Humza Unknown Unknown 2- Gokul SALAZAR Vital Signs Vital Name Observation Time Observation Value Comments SYSTOLIC mm[Hg] 2019-06-28 18:09:30 132 mm[Hg] mm[Hg] Method: Sit SYSTOLIC mm[Hg] 2019-06-22 18:09:24 148 mm[Hg] mm[Hg] Method: Stand DIASTOLIC mm[Hg] 2019-06-28 18:09:30 80 mm[Hg] mm[Hg] Method: Sit DIASTOLIC mm[Hg] 2019-06-22 18:09:24 84 mm[Hg] mm[Hg] Method: Stand PULSE 2019-06-28 18:09:30 60 /min /min RESP RATE 2019-06-28 18:09:30 18 /min /min TEMP 2019-07-01 18:09:33 97.9 [degF] Procedures This patient has no known procedures. Results This patient has no known results.
--- OUTSIDE RECORDS SUMMARY | 2019-07-03 10:10 | XMS REPORT ---
:1945 Author Organization [facility] Care Team Providers Name Role Phone Unavailable [...] RN supplementa supplementa l oxygen l oxygen director long term care longterm Diagnosis Active Abigail (current) (current) Carrier RN use of use of inhaled inhaled steroids steroids director long term care director long term care Diagnosis Active Abigail (current) (current) Carrier RN [...] Pain Mgmt Active 2018-07 Mary pain 2-17 [place] 12:28: [id number] 00 Respiratory dyspnea Respirator Active 2018-07 Mary present y 08-23 [place] 12:28: [id number] 00 Respiratory oxygen Respirator Active 2018-07 Mary treatments y 08-23 [place] in home 12:28: [id number] 00 Respiratory lung sounds Respirator Active 2018-07 Mary deficit y 08-23 [place] 12:28: [id number] 00 Endo/Carlos diabetic Endo/Carlos Active 2018-07 Mary foot care 08-23 [place] 12:28: [id number] 00 Sensory impaired Sensory Active 2018-07 Mary hearing 08-23 [place] 12:28: [id number] 00 Integument skin Integument Active 2018-07 Mary integrity 08-23 [place] risk 12:28: [id number] 00 Nutrition nutritional Nutrition Active 2018-07 Mary restriction 08-23 [place] s 12:28: [id number] 00 Elimination catheter Eliminatio Active 2018-07 Mary present n 08-23 [place] 12:28: [id number] 00 Elimination ostomy Eliminatio Active 2018-07 Mary present n 08-23 [place] 12:28: [id number] 00 Neuro confusion Neuro/Emot Active 2018-07 Mary present ion 08-23 [place] 12:28: [id number] 00 Activity ADL Activity Active 2018-07 Mary assistance 08-23 [place] required 12:28: [id number] 00 Activity self-care Activity Active 2018-07 Mary deficit 08-23 [place] 12:28: [id number] 00 Safety structural Safety Active 2018-07 Mary barriers 08-23 [place] present 12:28: [id number] 00 Safety fall risk Safety Active 2018-07 Mary factor 08-23 [place] present 12:28: [id number] 00 Safety risk for Safety Active 2018-07 Mary hospitaliza 08-23 [place] tion 12:28: [id number] 00 Safety can be left Safety Active 2018-07 Mary alone for 08-23 [place] only short 12:28: [id number] periods 00 Medication oral med Meds Active 2018-07 Mary assistance 08-23 [place] required 12:28: [id number] 00 Medication knowledge/s Meds Active 2018-07 Mary kill 08-23 [place] deficit: pt 12:28: [id number] 00 Medication knowledge/s Meds Active 2018-07 Mary kill 08-23 [place] deficit: cg 12:28: [id number] 00 Medication potential Meds Active 2018-07 Mary clinically 08-23 [place] significant 12:28: [id number] medication 00 issue Musculoskel transfer Musculoske Active 2018-07 Mary etal assistance letal 08-23 [place] required 12:28: [id number] 00 Musculoskel requires Musculoske Active 2018-07 Mary etal human letal 08-23 [place] assist to 12:28: [id number] leave home 00 Allergies, Adverse Reactions, Alerts [...] SALAZAR tablet tablet thiamine thiamine 2018-07 Yes [place] Unknown Unknown HCl HCl 08-23 Gokul SALAZAR (vitamin (vitamin B1) 100 mg B1) 100 mg tablet tablet atorvastati atorvastati 2018-07 Yes Humza Unknown Unknown n 20 mg n 20 mg 2- Gokul SALAZAR tablet tablet carvedilol carvedilol 2018-07 Yes [place] Unknown Unknown 25 mg 25 mg 2- Gokul SALAZAR tablet tablet DILT-XR 120 DILT-XR 120 2018-07 Yes [place] Unknown Unknown mg capsule, mg capsule, 2- Gokul SALAZAR extended extended release release isosorbide isosorbide 2018-07 Yes Humza Unknown Unknown mononitrate mononitrate 2- Gokul SALAZAR ER 30 mg ER 30 mg tablet,exte tablet,exte nded nded release 24 release 24 hr hr Symbicort Symbicort 2018-07 Yes [place] Unknown Unknown 160 mcg-4.5 160 mcg-4.5 2- Gokul SALAZAR mcg/actuati mcg/actuati on HFA on HFA aerosol aerosol inhaler inhaler Spiriva Spiriva 2018-07 Yes Humza Unknown Unknown with with 2- Gokul SALAZAR HandiHaler HandiHaler 18 mcg and 18 mcg and inhalation inhalation capsules capsules ipratropium ipratropium 2018-07 Yes [place] Unknown Unknown -albuterol -albuterol 2- Gokul SALAZAR 0.5 mg-3 0.5 mg-3 mg(2.5 mg mg(2.5 mg base)/3 mL base)/3 mL nebulizatio nebulizatio n soln n soln finasteride finasteride 2018-07 Yes [place] Unknown Unknown 5 mg tablet 5 mg tablet 08-23 ,Gokul sertraline sertraline 2018-07 Yes Humza Unknown Unknown 100 mg 100 mg 08-23 ,Gokul tablet tablet tamsulosin tamsulosin 2018-07 Yes [place] Unknown Unknown 0.4 mg 0.4 mg 08-23 ,Gokul capsule capsule ondansetron ondansetron 2018-07 Yes [place] Unknown Unknown 4 mg 4 mg 08-23 Gokul SALAZAR disintegrat disintegrat ing tablet ing tablet simethicone simethicone 2018-07 Yes [place] Unknown Unknown 80 mg 80 mg 08-23 ,Gokul chewable chewable tablet tablet omeprazole omeprazole 2018-07 Yes [place] Unknown Unknown 20 mg 20 mg 08-23 ,Gokul capsule,del capsule,del ayed ayed release release metFORMIN metFORMIN 2018-07 Yes Humza Unknown Unknown 1,000 mg 1,000 mg 08-23 ,Gokul tablet tablet levothyroxi levothyroxi 2018-07 Yes [place] Unknown Unknown ne 50 mcg ne 50 mcg 08-23 ,Gokul tablet tablet Lactobac. Lactobac. 2018-07 Yes [place] Unknown Unknown acidophilus acidophilus 08-23 Gokul SALAZAR [...] ,Gokul tablet tablet cholecalcif cholecalcif 2018-07 Yes [place] Unknown Unknown murray murray - Gokul SALAZAR [...] RATE 2019-06-28 18:09:30 18 /min /min TEMP 2019-06-28 18:09:30 99.0 [degF] Procedures This patient has no known procedures. Results This patient has no known results.
--- OUTSIDE RECORDS SUMMARY | 2019-07-03 10:10 | XMS REPORT ---
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 Abigail (current) (current) Carrier RN [...] Pain Mgmt Active 2018-07 Mary pain 2-17 [place] 12:28: [id number] Respiratory dyspnea Respirator Active 2018-07 Mary present y 08-23 [place] 12:28: [id number] 00 Respiratory oxygen Respirator Active 2018-07 Mary treatments y 08-23 [place] in home 12:28: [id number] 00 Respiratory lung sounds Respirator Active 2018-07 Mary deficit y 08-23 [place] 12:28: [id number] 00 Endo/Carlos diabetic Endo/Carlos Active 2018-07 Mary foot care 08-23 [place] 12:28: [id number] 00 Sensory impaired Sensory Active 2018-07 Mary hearing 08-23 [place] 12:28: [id number] 00 Integument skin Integument Active 2018-07 Mary integrity 08-23 [place] risk 12:28: [id number] 00 Nutrition nutritional Nutrition Active 2018-07 Mary restriction 08-23 [place] s 12:28: [id number] 00 Elimination catheter Eliminatio Active 2018-07 Mary present n 08-23 [place] 12:28: [id number] 00 Elimination ostomy Eliminatio Active 2018-07 Mary present n 08-23 [place] 12:28: [id number] 00 Neuro confusion Neuro/Emot Active 2018-07 Mary present ion 08-23 [place] 12:28: [id number] 00 Activity ADL Activity Active 2018-07 Mary assistance 08-23 [place] required 12:28: [id number] 00 Activity self-care Activity Active 2018-07 Mary deficit 08-23 [place] 12:28: [id number] 00 Safety structural Safety Active 2018-07 Mary barriers 08-23 [place] present 12:28: [id number] 00 Safety fall risk Safety Active 2018-07 Mary factor 08-23 [place] present 12:28: [id number] 00 Safety risk for Safety Active 2018-07 Mary hospitaliza 08-23 [place] tion 12:28: [id number] 00 Safety can be left Safety Active 2018-07 Mary alone for 08-23 [place] only short 12:28: [id number] periods 00 Medication oral med Meds Active 2018-07 Mary assistance 08-23 [place] required 12:28: [id number] 00 Medication knowledge/s Meds Active 2018-07 Mary kill 08-23 [place] deficit: pt 12:28: [id number] 00 Medication knowledge/s Meds Active 2018-07 Mary kill 08-23 [place] deficit: cg 12:28: [id number] 00 Medication potential Meds Active 2018-07 Mary clinically 08-23 [place] significant 12:28: [id number] medication 00 issue Musculoskel transfer Musculoske Active 2018-07 Mary etal assistance letal 08-23 [place] required 12:28: [id number] 00 Musculoskel requires Musculoske Active 2018-07 Mary etal human letal 08-23 [place] assist to 12:28: [id number] leave home 00 Allergies, Adverse Reactions, Alerts [...] SALAZAR tablet tablet thiamine thiamine 2018-07 Yes [place] Unknown Unknown HCl HCl 08-23 Gokul SALAZAR (vitamin (vitamin B1) 100 mg B1) 100 mg tablet tablet atorvastati atorvastati 2018-07 Yes Humza Unknown Unknown n 20 mg n 20 mg 2- Gokul SALAZAR tablet tablet carvedilol carvedilol 2018-07 Yes [place] Unknown Unknown 25 mg 25 mg 2- Gokul SALAZAR tablet tablet DILT-XR 120 DILT-XR 120 2018-07 Yes [place] Unknown Unknown mg capsule, mg capsule, 2- Gokul SALAZAR extended extended release release isosorbide isosorbide 2018-07 Yes Humza Unknown Unknown mononitrate mononitrate 2- Gokul SALAZAR ER 30 mg ER 30 mg tablet,exte tablet,exte nded nded release 24 release 24 hr hr Symbicort Symbicort 2018-07 Yes [place] Unknown Unknown 160 mcg-4.5 160 mcg-4.5 2- Gokul SALAZAR mcg/actuati mcg/actuati on HFA on HFA aerosol aerosol inhaler inhaler Spiriva Spiriva 2018-07 Yes Humza Unknown Unknown with with 2- Gokul SALAZAR HandiHaler HandiHaler 18 mcg and 18 mcg and inhalation inhalation capsules capsules ipratropium ipratropium 2018-07 Yes [place] Unknown Unknown -albuterol -albuterol 2- Gokul SALAZAR 0.5 mg-3 0.5 mg-3 mg(2.5 mg mg(2.5 mg base)/3 mL base)/3 mL nebulizatio nebulizatio n soln n soln finasteride finasteride 2018-07 Yes [place] Unknown Unknown 5 mg tablet 5 mg tablet 08-23 ,Gokul sertraline sertraline 2018-07 Yes Humza Unknown Unknown 100 mg 100 mg 08-23 ,Gokul tablet tablet tamsulosin tamsulosin 2018-07 Yes [place] Unknown Unknown 0.4 mg 0.4 mg 08-23 ,Gokul capsule capsule ondansetron ondansetron 2018-07 Yes [place] Unknown Unknown 4 mg 4 mg 08-23 Gokul SALAZAR disintegrat disintegrat ing tablet ing tablet simethicone simethicone 2018-07 Yes [place] Unknown Unknown 80 mg 80 mg 08-23 ,Gokul chewable chewable tablet tablet omeprazole omeprazole 2018-07 Yes [place] Unknown Unknown 20 mg 20 mg 08-23 ,Gokul capsule,del capsule,del ayed ayed release release metFORMIN metFORMIN 2018-07 Yes Humza Unknown Unknown 1,000 mg 1,000 mg 08-23 ,Gokul tablet tablet levothyroxi levothyroxi 2018-07 Yes [place] Unknown Unknown ne 50 mcg ne 50 mcg 08-23 ,Gokul tablet tablet Lactobac. Lactobac. 2018-07 Yes [place] Unknown Unknown acidophilus acidophilus 08-23 Gokul SALAZAR [...] ,Gokul tablet tablet cholecalcif cholecalcif 2018-07 Yes [place] Unknown Unknown murray murray - Gokul SALAZAR [...]
--- OUTSIDE RECORDS SUMMARY | 2019-07-03 10:10 | XMS REPORT ---
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 Abigail (current) (current) Carrier RN [...] Pain Mgmt Active 2018-07 Mary pain 2-17 [place] 12:28: [id number] Respiratory dyspnea Respirator Active 2018-07 Mary present y 08-23 [place] 12:28: [id number] 00 Respiratory oxygen Respirator Active 2018-07 Mary treatments y 08-23 [place] in home 12:28: [id number] 00 Respiratory lung sounds Respirator Active 2018-07 Mary deficit y 08-23 [place] 12:28: [id number] 00 Endo/Acrlos diabetic Endo/Carlos Active 2018-07 Mary foot care 08-23 [place] 12:28: [id number] 00 Sensory impaired Sensory Active 2018-07 Mary hearing 08-23 [place] 12:28: [id number] 00 Integument skin Integument Active 2018-07 Mary integrity 08-23 [place] risk 12:28: [id number] 00 Nutrition nutritional Nutrition Active 2018-07 Mary restriction 08-23 [place] s 12:28: [id number] 00 Elimination catheter Eliminatio Active 2018-07 Mary present n 08-23 [place] 12:28: [id number] 00 Elimination ostomy Eliminatio Active 2018-07 Mary present n 08-23 [place] 12:28: [id number] 00 Neuro confusion Neuro/Emot Active 2018-07 Mary present ion 08-23 [place] 12:28: [id number] 00 Activity ADL Activity Active 2018-07 Mary assistance 08-23 [place] required 12:28: [id number] 00 Activity self-care Activity Active 2018-07 Mary deficit 08-23 [place] 12:28: [id number] 00 Safety structural Safety Active 2018-07 Mary barriers 08-23 [place] present 12:28: [id number] 00 Safety fall risk Safety Active 2018-07 Mary factor 08-23 [place] present 12:28: [id number] 00 Safety risk for Safety Active 2018-07 Mary hospitaliza 08-23 [place] tion 12:28: [id number] 00 Safety can be left Safety Active 2018-07 Mary alone for 08-23 [place] only short 12:28: [id number] periods 00 Medication oral med Meds Active 2018-07 Mary assistance 08-23 [place] required 12:28: [id number] 00 Medication knowledge/s Meds Active 2018-07 Mary kill 08-23 [place] deficit: pt 12:28: [id number] 00 Medication knowledge/s Meds Active 2018-07 Mary kill 08-23 [place] deficit: cg 12:28: [id number] 00 Medication potential Meds Active 2018-07 Mary clinically 08-23 [place] significant 12:28: [id number] medication 00 issue Musculoskel transfer Musculoske Active 2018-07 Mary etal assistance letal 08-23 [place] required 12:28: [id number] 00 Musculoskel requires Musculoske Active 2018-07 Mary etal human letal 08-23 [place] assist to 12:28: [id number] leave home 00 Allergies, Adverse Reactions, Alerts [...] SALAZAR tablet tablet thiamine thiamine 2018-07 Yes [place] Unknown Unknown HCl HCl 08-23 Gokul SALAZAR (vitamin (vitamin B1) 100 mg B1) 100 mg tablet tablet atorvastati atorvastati 2018-07 Yes Humza Unknown Unknown n 20 mg n 20 mg 2- Gokul SALAZAR tablet tablet carvedilol carvedilol 2018-07 Yes [place] Unknown Unknown 25 mg 25 mg 2- Gokul SALAZAR tablet tablet DILT-XR 120 DILT-XR 120 2018-07 Yes [place] Unknown Unknown mg capsule, mg capsule, 2- Gokul SALAZAR extended extended release release isosorbide isosorbide 2018-07 Yes Humza Unknown Unknown mononitrate mononitrate 2- Gokul SALAZAR ER 30 mg ER 30 mg tablet,exte tablet,exte nded nded release 24 release 24 hr hr Symbicort Symbicort 2018-07 Yes [place] Unknown Unknown 160 mcg-4.5 160 mcg-4.5 2- Gokul SALAZAR mcg/actuati mcg/actuati on HFA on HFA aerosol aerosol inhaler inhaler Spiriva Spiriva 2018-07 Yes Humza Unknown Unknown with with 2- Gokul SALAZAR HandiHaler HandiHaler 18 mcg and 18 mcg and inhalation inhalation capsules capsules ipratropium ipratropium 2018-07 Yes [place] Unknown Unknown -albuterol -albuterol 2- Gokul SALAZAR 0.5 mg-3 0.5 mg-3 mg(2.5 mg mg(2.5 mg base)/3 mL base)/3 mL nebulizatio nebulizatio n soln n soln finasteride finasteride 2018-07 Yes [place] Unknown Unknown 5 mg tablet 5 mg tablet 08-23 ,Gokul sertraline sertraline 2018-07 Yes Humza Unknown Unknown 100 mg 100 mg 08-23 ,Gokul tablet tablet tamsulosin tamsulosin 2018-07 Yes [place] Unknown Unknown 0.4 mg 0.4 mg 08-23 ,Gokul capsule capsule ondansetron ondansetron 2018-07 Yes [place] Unknown Unknown 4 mg 4 mg 08-23 Gokul SALAZAR disintegrat disintegrat ing tablet ing tablet simethicone simethicone 2018-07 Yes [place] Unknown Unknown 80 mg 80 mg 08-23 ,Gokul chewable chewable tablet tablet omeprazole omeprazole 2018-07 Yes [place] Unknown Unknown 20 mg 20 mg 08-23 ,Gokul capsule,del capsule,del ayed ayed release release metFORMIN metFORMIN 2018-07 Yes Humza Unknown Unknown 1,000 mg 1,000 mg 08-23 ,Gokul tablet tablet levothyroxi levothyroxi 2018-07 Yes [place] Unknown Unknown ne 50 mcg ne 50 mcg 08-23 ,Gokul tablet tablet Lactobac. Lactobac. 2018-07 Yes [place] Unknown Unknown acidophilus acidophilus 08-23 Gokul SALAZAR [...] ,Gokul tablet tablet cholecalcif cholecalcif 2018-07 Yes [place] Unknown Unknown murray murray - Gokul SALAZAR [...]
--- OUTSIDE RECORDS SUMMARY | 2019-07-03 10:10 | XMS REPORT ---
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 Diagnosis Active Abigail (current) (current) Carrier RN use of use of inhaled inhaled steroids steroids 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 Diagnosis 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 Abigail (current) (current) Carrier RN [...] Pain Mgmt Active 2018-07 Mary pain 2-17 [place] 12:28: [id number] 00 Respiratory dyspnea Respirator Active 2018-07 Mary present y 08-23 [place] 12:28: [id number] 00 Respiratory oxygen Respirator Active 2018-07 Mary treatments y 08-23 [place] in home 12:28: [id number] 00 Respiratory lung sounds Respirator Active 2018-07 Mary deficit y 08-23 [place] 12:28: [id number] 00 Endo/Carlos diabetic Endo/Carlos Active 2018-07 Mary foot care 08-23 [place] 12:28: [id number] 00 Sensory impaired Sensory Active 2018-07 Mary hearing 08-23 [place] 12:28: [id number] 00 Integument skin Integument Active 2018-07 Mary integrity 08-23 [place] risk 12:28: [id number] 00 Nutrition nutritional Nutrition Active 2018-07 Mary restriction 08-23 [place] s 12:28: [id number] 00 Elimination catheter Eliminatio Active 2018-07 Mary present n 08-23 [place] 12:28: [id number] 00 Elimination ostomy Eliminatio Resolve 2018-072019-06-24 Mary present n d 08-23 14:35:00 [place] 12:28: [id number] 00 Neuro confusion Neuro/Emot Active 2018-07 Mary present ion 08-23 [place] 12:28: [id number] 00 Activity ADL Activity Active 2018-07 Mary assistance 08-23 [place] required 12:28: [id number] 00 Activity self-care Activity Active 2018-07 Mary deficit 08-23 [place] 12:28: [id number] 00 Safety structural Safety Active 2018-07 Mary barriers 08-23 [place] present 12:28: [id number] 00 Safety fall risk Safety Active 2018-07 Mary factor 08-23 [place] present 12:28: [id number] 00 Safety risk for Safety Active 2018-07 Mary hospitaliza 08-23 [place] tion 12:28: [id number] 00 Safety can be left Safety Active 2018-07 Mary alone for 08-23 [place] only short 12:28: [id number] periods 00 Medication oral med Meds Active 2018-07 Mary assistance 08-23 [place] required 12:28: [id number] 00 Medication knowledge/s Meds Active 2018-07 Mary kill 08-23 [place] deficit: pt 12:28: [id number] 00 Medication knowledge/s Meds Active 2018-07 Mary garcia -17 [place] deficit: cg 12:28: [id number] 00 Medication potential Meds Active 2018-07 Mary clinically - [place] significant 12:28: [id number] medication 00 issue Musculoskel transfer Musculoske Active 2018-07 Mary etal assistance letal 08-23 [place] required 12:28: [id number] 00 Musculoskel requires Musculoske Active 2018-07 Mary etal human letal 08-23 [place] assist to 12:28: [id number] leave home 00 Cardio edema Cardiovasc Active 2018-07 Abigail teague 2-19 Carrier RN 14:35: 00 Cardio hypertensio Cardiovasc Resolve 2018-072019-06-24 Abigail dalalar d 2- 14:35:00 Carrier RN 14:35: 00 Respiratory nebulizer Respirator Active 2018-07 Abigail souza y - Carrier RN in home 14:35: 00 Integument knowledge/s Integument Active 2018-07 Abigail jose 2-23 Carrier RN deficit: pt 15:25: 00 Integument knowledge/s Integument Active 2018-07 Abigail garcia 2-26 Carrier RN deficit: cg 10:55: 00 Allergies, Adverse Reactions, Alerts Allergy Allergy Status Severity Reaction(s) Onset Inactive Treating Comments Name Type Date Date Clinician Unknown None Active Unknown None Unknown No Known Allergies For This Patient Medications Ordered Filled Start Stop Current Ordering Indication Dosage Frequency Signature Comments Components Medication Medication Date Date Medication? Clinician (SIG) Name Name furosemide furosemide 2018-07 Yes [place] Unknown Unknown 20 mg 20 mg 2-17 Gokul SALAZAR tablet tablet thiamine thiamine 2018-07 Yes Humza Unknown Unknown HCl HCl 2-17 Gokul SALAZAR (vitamin (vitamin B1) 100 mg B1) 100 mg tablet tablet atorvastati atorvastati 2018-07 Yes [place] Unknown Unknown n 20 mg n 20 mg 2-17 Gokul SALAZAR tablet tablet carvedilol carvedilol 2018-07 Yes Humza Unknown Unknown 25 mg 25 mg 2- Gokul SALAZAR tablet tablet DILT-XR 120 DILT-XR 120 2018-07 Yes Humza Unknown Unknown mg capsule, mg capsule, 2- Gokul SALAZAR extended extended release release isosorbide isosorbide 2018-07 Yes [place] Unknown Unknown mononitrate mononitrate 2- Gokul SALAZAR ER 30 mg ER 30 mg tablet,exte tablet,exte nded nded release 24 release 24 hr hr Symbicort Symbicort 2018-07 Yes Humza Unknown Unknown 160 mcg-4.5 160 mcg-4.5 2- Gokul SALAZAR mcg/actuati mcg/actuati on HFA on HFA aerosol aerosol inhaler inhaler Spiriva Spiriva 2018-07 Yes Humza Unknown Unknown with with 2- Gokul SALAZAR HandiHaler HandiHaler 18 mcg and 18 mcg and inhalation inhalation capsules capsules ipratropium ipratropium 2018-07 Yes Humza Unknown Unknown -albuterol -albuterol 2- Gokul SALAZAR 0.5 mg-3 0.5 mg-3 mg(2.5 mg mg(2.5 mg base)/3 mL base)/3 mL nebulizatio nebulizatio n soln n soln finasteride finasteride 2018-07 Yes [place] Unknown Unknown 5 mg tablet 5 mg tablet 2- Gokul SALAZAR sertraline sertraline 2018-07 Yes [place] Unknown Unknown 100 mg 100 mg 2- ,Gokul tablet tablet tamsulosin tamsulosin 2018-07 Yes [place] Unknown Unknown 0.4 mg 0.4 mg 2 Gokul SALAZAR capsule capsule ondansetron ondansetron 2018-07 Yes [place] Unknown Unknown 4 mg 4 mg 2- Gokul SALAZAR disintegrat disintegrat ing tablet ing tablet simethicone simethicone 2018-07 Yes Humza Unknown Unknown 80 mg 80 mg 2- Gokul SALAZAR chewable chewable tablet tablet omeprazole omeprazole 2018-07 Yes Humza Unknown Unknown 20 mg 20 mg 2- Gokul SALAZAR capsule,del capsule,del ayed ayed release release metFORMIN metFORMIN 2018-07 Yes Humza Unknown Unknown 1,000 mg 1,000 mg 2- ,Gokul tablet tablet levothyroxi levothyroxi 2018-07 Yes Humza Unknown Unknown ne 50 mcg ne 50 mcg 2-17 ,Gokul tablet tablet Lactobac. Lactobac. 2018-07 Yes [place] Unknown Unknown acidophilus acidophilus 2-17 Gokul SALAZAR -Bifido. -Bifido. animalis 10 animalis 10 billion billion cell cell chewable chewable tablet tablet folic acid folic acid 2018-07 Yes Humza Unknown Unknown 1 mg tablet 1 mg tablet 2 Gokul SALAZAR magnesium magnesium 2018-07 Yes [place] Unknown Unknown oxide 400 oxide 400 2 Gokul SALAZAR mg (241.3 mg (241.3 mg mg magnesium) magnesium) tablet tablet colchicine colchicine 2018-07 Yes Humza Unknown Unknown 0.6 mg 0.6 mg 2 Gokul SALAZAR tablet tablet cholecalcif cholecalcif 2018-07 Yes Humza Unknown Unknown murray murray 08-23 Gokul SALAZAR (vitamin (vitamin D3) 1,000 D3) 1,000 unit unit capsule capsule Tums 200 mg Tums 200 mg 2018-07 Yes Humza Unknown Unknown calcium calcium 08-23 Gokul SALAZAR (500 mg) (500 mg) chewable chewable tablet tablet oxygen oxygen 2018-07 Yes Humza Unknown Unknown 2 Gokul SALAZAR acetaminoph acetaminoph 2018-07 Yes Humza Unknown Unknown en 500 mg en 500 mg 08-29 ,Gokul tablet tablet Vital Signs Vital Name Observation Time Observation Value Comments SYSTOLIC mm[Hg] 2019-07-02 18:09:34 136 mm[Hg] mm[Hg] Method: Sit SYSTOLIC mm[Hg] 2019-06-22 18:09:24 148 mm[Hg] mm[Hg] Method: Stand DIASTOLIC mm[Hg] 2019-07-02 18:09:34 84 mm[Hg] mm[Hg] Method: Sit DIASTOLIC mm[Hg] 2019-06-22 18:09:24 84 mm[Hg] mm[Hg] Method: Stand PULSE 2019-07-02 18:09:34 72 /min /min RESP RATE 2019-07-02 18:09:34 16 /min /min TEMP 2019-07-01 18:09:33 97.9 [degF] Procedures This patient has no known procedures. Results This patient has no known results.
--- OUTSIDE RECORDS SUMMARY | 2019-07-03 10:11 | XMS REPORT ---
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 Abigail (current) (current) Carrier RN [...] Pain Mgmt Active 2018-07 Mary pain 2-17 [place] 12:28: [id number] 00 Respiratory dyspnea Respirator Active 2018-07 Mary present y 08-23 [place] 12:28: [id number] 00 Respiratory oxygen Respirator Active 2018-07 Mary treatments y 08-23 [place] in home 12:28: [id number] 00 Respiratory lung sounds Respirator Active 2018-07 Mary deficit y 08-23 [place] 12:28: [id number] 00 Endo/Carlos diabetic Endo/Carlos Active 2018-07 Mary foot care 08-23 [place] 12:28: [id number] 00 Sensory impaired Sensory Active 2018-07 Mary hearing 08-23 [place] 12:28: [id number] 00 Integument skin Integument Active 2018-07 Mary integrity 08-23 [place] risk 12:28: [id number] 00 Nutrition nutritional Nutrition Active 2018-07 Mary restriction 08-23 [place] s 12:28: [id number] 00 Elimination catheter Eliminatio Active 2018-07 Mary present n 08-23 [place] 12:28: [id number] 00 Elimination ostomy Eliminatio Active 2018-07 Mary present n 08-23 [place] 12:28: [id number] 00 Neuro confusion Neuro/Emot Active 2018-07 Mary present ion 08-23 [place] 12:28: [id number] 00 Activity ADL Activity Active 2018-07 Mary assistance 08-23 [place] required 12:28: [id number] 00 Activity self-care Activity Active 2018-07 Mary deficit 08-23 [place] 12:28: [id number] 00 Safety structural Safety Active 2018-07 Mary barriers 08-23 [place] present 12:28: [id number] 00 Safety fall risk Safety Active 2018-07 Mary factor 08-23 [place] present 12:28: [id number] 00 Safety risk for Safety Active 2018-07 Mary hospitaliza 08-23 [place] tion 12:28: [id number] 00 Safety can be left Safety Active 2018-07 Mary alone for 08-23 [place] only short 12:28: [id number] periods 00 Medication oral med Meds Active 2018-07 Mary assistance 08-23 [place] required 12:28: [id number] 00 Medication knowledge/s Meds Active 2018-07 Mary kill 08-23 [place] deficit: pt 12:28: [id number] 00 Medication knowledge/s Meds Active 2018-07 Mary kill 08-23 [place] deficit: cg 12:28: [id number] 00 Medication potential Meds Active 2018-07 Mary clinically 08-23 [place] significant 12:28: [id number] medication 00 issue Musculoskel transfer Musculoske Active 2018-07 Mary etal assistance letal 08-23 [place] required 12:28: [id number] 00 Musculoskel requires Musculoske Active 2018-07 Mary etal human letal 08-23 [place] assist to 12:28: [id number] leave home 00 Allergies, Adverse Reactions, Alerts [...] SALAZAR tablet tablet thiamine thiamine 2018-07 Yes [place] Unknown Unknown HCl HCl 08-23 Gokul SALAZAR (vitamin (vitamin B1) 100 mg B1) 100 mg tablet tablet atorvastati atorvastati 2018-07 Yes Humza Unknown Unknown n 20 mg n 20 mg 2- Gokul SALAZAR tablet tablet carvedilol carvedilol 2018-07 Yes [place] Unknown Unknown 25 mg 25 mg 2- Gokul SALAZAR tablet tablet DILT-XR 120 DILT-XR 120 2018-07 Yes [place] Unknown Unknown mg capsule, mg capsule, 2- Gokul SALAZAR extended extended release release isosorbide isosorbide 2018-07 Yes Humza Unknown Unknown mononitrate mononitrate 2- Gokul SALAZAR ER 30 mg ER 30 mg tablet,exte tablet,exte nded nded release 24 release 24 hr hr Symbicort Symbicort 2018-07 Yes [place] Unknown Unknown 160 mcg-4.5 160 mcg-4.5 2- Gokul SALAZAR mcg/actuati mcg/actuati on HFA on HFA aerosol aerosol inhaler inhaler Spiriva Spiriva 2018-07 Yes Humza Unknown Unknown with with 2- Gokul SALAZAR HandiHaler HandiHaler 18 mcg and 18 mcg and inhalation inhalation capsules capsules ipratropium ipratropium 2018-07 Yes [place] Unknown Unknown -albuterol -albuterol 2- Gokul SALAZAR 0.5 mg-3 0.5 mg-3 mg(2.5 mg mg(2.5 mg base)/3 mL base)/3 mL nebulizatio nebulizatio n soln n soln finasteride finasteride 2018-07 Yes [place] Unknown Unknown 5 mg tablet 5 mg tablet 08-23 ,Gokul sertraline sertraline 2018-07 Yes Humza Unknown Unknown 100 mg 100 mg 08-23 ,Gokul tablet tablet tamsulosin tamsulosin 2018-07 Yes [place] Unknown Unknown 0.4 mg 0.4 mg 08-23 ,Gokul capsule capsule ondansetron ondansetron 2018-07 Yes [place] Unknown Unknown 4 mg 4 mg 08-23 Gokul SALAZAR disintegrat disintegrat ing tablet ing tablet simethicone simethicone 2018-07 Yes [place] Unknown Unknown 80 mg 80 mg 08-23 ,Gokul chewable chewable tablet tablet omeprazole omeprazole 2018-07 Yes [place] Unknown Unknown 20 mg 20 mg 08-23 ,Gokul capsule,del capsule,del ayed ayed release release metFORMIN metFORMIN 2018-07 Yes Humza Unknown Unknown 1,000 mg 1,000 mg 08-23 ,Gokul tablet tablet levothyroxi levothyroxi 2018-07 Yes [place] Unknown Unknown ne 50 mcg ne 50 mcg 08-23 ,Gokul tablet tablet Lactobac. Lactobac. 2018-07 Yes [place] Unknown Unknown acidophilus acidophilus 08-23 Gokul SALAZAR [...] ,Gokul tablet tablet cholecalcif cholecalcif 2018-07 Yes [place] Unknown Unknown murray murray - Gokul SALAZAR (vitamin (vitamin D3) 1,000 D3) 1,000 unit unit capsule capsule Tums 200 mg Tums 200 mg 2019-1 Yes Humza Unknown Unknown calcium calcium 2-17 Gokul SALAZAR (500 mg) (500 mg) chewable chewable tablet tablet oxygen oxygen 2018-07 Yes Humza Unknown Unknown 08-23 Gokul SALAZAR Vital Signs Vital Name Observation Time Observation Value Comments SYSTOLIC mm[Hg] 2019-06-22 18:09:24 140 mm[Hg] mm[Hg] Method: Sit SYSTOLIC mm[Hg] 2019-06-22 18:09:24 148 mm[Hg] mm[Hg] Method: Stand DIASTOLIC mm[Hg] 2019-06-22 18:09:24 78 mm[Hg] mm[Hg] Method: Sit DIASTOLIC mm[Hg] 2019-06-22 18:09:24 84 mm[Hg] mm[Hg] Method: Stand PULSE 2019-06-22 18:09:24 76 /min /min RESP RATE 2019-06-22 18:09:24 16 /min /min TEMP 2019-06-24 18:09:26 97.8 [degF] Procedures This patient has no known procedures. Results This patient has no known results.
--- OUTSIDE RECORDS SUMMARY | 2019-07-03 10:11 | XMS REPORT ---
:1945 Author Organization [facility] Care Team Providers Name Role Phone Unavailable Unavailable Unavailable Problems This patient has no known problems. Allergies, Adverse Reactions, Alerts Allergy Allergy Status Severity Reaction(s) Onset Inactive Treating Comments Name Type Date Date Clinician Unknown None Active Unknown None Unknown No Known Allergies For This Patient Medications Ordered Filled Start Stop Current Ordering Indication Dosage Frequency Signature Comments Components Medication Medication Date Date Medication? Clinician (SIG) Name Name No Known No Known No None None None Medications Medications For This For This Patient Patient Procedures This patient has no known procedures. Results This patient has no known results.
--- OUTSIDE RECORDS SUMMARY | 2019-07-03 10:11 | XMS REPORT ---
:1945 Author Organization [facility] Care Team Providers Name Role Phone Unavailable [...]
--- OUTSIDE RECORDS SUMMARY | 2019-07-03 10:11 | XMS REPORT ---
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 (congestive (congestive ) heart ) heart failure failure Pain frequent Pain Mgmt Active 2018-07 Mary pain 08-23 [place] 12:28: [id number] Respiratory dyspnea Respirator Active 2018-07 Mary present y 08-23 [place] 12:28: [id number] 00 Respiratory oxygen Respirator Active 2018-07 Mary treatments y 08-23 [place] in home 12:28: [id number] 00 Respiratory lung sounds Respirator Active 2018-07 Mary deficit y 08-23 [place] 12:28: [id number] 00 Endo/Carlos diabetic Endo/Carlos Active 2018-07 Mary foot care 08-23 [place] 12:28: [id number] 00 Sensory impaired Sensory Active 2018-07 Mary hearing 08-23 [place] 12:28: [id number] 00 Integument skin Integument Active 2018-07 Mary integrity 08-23 [place] risk 12:28: [id number] 00 Nutrition nutritional Nutrition Active 2018-07 Mary restriction 08-23 [place] s 12:28: [id number] 00 Elimination catheter Eliminatio Active 2018-07 Mary present n 08-23 [place] 12:28: [id number] 00 Elimination ostomy Eliminatio Active 2018-07 Mary present n 08-23 [place] 12:28: [id number] 00 Neuro confusion Neuro/Emot Active 2018-07 Mary present ion 08-23 [place] 12:28: [id number] 00 Activity ADL Activity Active 2018-07 Mary assistance 08-23 [place] required 12:28: [id number] 00 Activity self-care Activity Active 2018-07 Mary deficit 08-23 [place] 12:28: [id number] 00 Safety structural Safety Active 2018-07 Mary barriers 08-23 [place] present 12:28: [id number] 00 Safety fall risk Safety Active 2018-07 Mary factor 08-23 [place] present 12:28: [id number] 00 Safety risk for Safety Active 2018-07 Mary hospitaliza 08-23 [place] tion 12:28: [id number] 00 Safety can be left Safety Active 2018-07 Mary alone for 08-23 [place] only short 12:28: [id number] periods 00 Medication oral med Meds Active 2018-07 Mary assistance 08-23 [place] required 12:28: [id number] 00 Medication knowledge/s Meds Active 2018-07 Mary kill 08-23 [place] deficit: pt 12:28: [id number] 00 Medication knowledge/s Meds Active 2018-07 Mary kill 08-23 [place] deficit: cg 12:28: [id number] 00 Medication potential Meds Active 2018-07 Mary clinically 08-23 [place] significant 12:28: [id number] medication 00 issue Musculoskel transfer Musculoske Active 2018-07 Mary etal assistance letal 08-23 [place] required 12:28: [id number] 00 Musculoskel requires Musculoske Active 2018-07 Mary etal human letal 08-23 [place] assist to 12:28: [id number] leave home 00 Allergies, Adverse Reactions, Alerts [...] Medications For This For This Patient Patient Vital Signs Vital Name Observation Time Observation Value Comments SYSTOLIC mm[Hg] 2019-06-22 18:09:24 140 mm[Hg] mm[Hg] Method: Sit SYSTOLIC mm[Hg] 2019-06-22 18:09:24 148 mm[Hg] mm[Hg] Method: Stand DIASTOLIC mm[Hg] 2019-06-22 18:09:24 78 mm[Hg] mm[Hg] Method: Sit DIASTOLIC mm[Hg] 2019-06-22 18:09:24 84 mm[Hg] mm[Hg] Method: Stand PULSE 2019-06-22 18:09:24 76 /min /min RESP RATE 2019-06-22 18:09:24 16 /min /min TEMP 2019-06-22 18:09:24 98.4 [degF] Procedures This patient has no known procedures. Results This patient has no known results.
--- OUTSIDE RECORDS SUMMARY | 2019-07-03 10:11 | XMS REPORT ---
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 RN [...] Pain Mgmt Active 2018-07 Mary pain 2-17 [place] 12:28: [id number] 00 Respiratory dyspnea Respirator Active 2018-07 Mary present y 08-23 [place] 12:28: [id number] 00 Respiratory oxygen Respirator Active 2018-07 Mary treatments y 08-23 [place] in home 12:28: [id number] 00 Respiratory lung sounds Respirator Active 2018-07 Mary deficit y 08-23 [place] 12:28: [id number] 00 Endo/Carlos diabetic Endo/Carlos Active 2018-07 Mary foot care 08-23 [place] 12:28: [id number] 00 Sensory impaired Sensory Active 2018-07 Mary hearing 08-23 [place] 12:28: [id number] 00 Integument skin Integument Active 2018-07 Mary integrity 08-23 [place] risk 12:28: [id number] 00 Nutrition nutritional Nutrition Active 2018-07 Mary restriction 08-23 [place] 12:28: [id number] 00 Elimination catheter Eliminatio Active 2018-07 Mary present n 08-23 [place] 12:28: [id number] 00 Elimination ostomy Eliminatio Active 2018-07 Mary present n 08-23 [place] 12:28: [id number] 00 Neuro confusion Neuro/Emot Active 2018-07 Mary present ion 08-23 [place] 12:28: [id number] 00 Activity ADL Activity Active 2018-07 Mary assistance 08-23 [place] required 12:28: [id number] 00 Activity self-care Activity Active 2018-07 Mary deficit 08-23 [place] 12:28: [id number] 00 Safety structural Safety Active 2018-07 Mary barriers 08-23 [place] present 12:28: [id number] 00 Safety fall risk Safety Active 2018-07 Mary factor 08-23 [place] present 12:28: [id number] 00 Safety risk for Safety Active 2018-07 Mary hospitaliza 08-23 [place] tion 12:28: [id number] 00 Safety can be left Safety Active 2018-07 Mary alone for 08-23 [place] only short 12:28: [id number] periods 00 Medication oral med Meds Active 2018-07 Mary assistance 08-23 [place] required 12:28: [id number] 00 Medication knowledge/s Meds Active 2018-07 Mary kill 08-23 [place] deficit: pt 12:28: [id number] 00 Medication knowledge/s Meds Active 2018-07 Mary kill 08-23 [place] deficit: cg 12:28: [id number] 00 Medication potential Meds Active 2018-07 Mary clinically 08-23 [place] significant 12:28: [id number] medication 00 issue Musculoskel transfer Musculoske Active 2018-07 Mary etal assistance letal 08-23 [place] required 12:28: [id number] 00 Musculoskel requires Musculoske Active 2018-07 Mary etal human letal 08-23 [place] assist to 12:28: [id number] leave home 00 Allergies, Adverse Reactions, Alerts [...] SALAZAR tablet tablet thiamine thiamine 2018-07 Yes [place] Unknown Unknown HCl HCl 08-23 [place] SALAZAR (vitamin (vitamin B1) 100 mg B1) 100 mg tablet tablet atorvastati atorvastati 2018-07 Yes Humza Unknown Unknown n 20 mg n 20 mg 2- Gokul SALAZAR tablet tablet carvedilol carvedilol 2018-07 Yes [place] Unknown Unknown 25 mg 25 mg 2- Gokul SALAAZR tablet tablet DILT-XR 120 DILT-XR 120 2018-07 Yes [place] Unknown Unknown mg capsule, mg capsule, 2- Gokul SALAZAR extended extended release release isosorbide isosorbide 2018-07 Yes Humza Unknown Unknown mononitrate mononitrate 2- Gokul SALAZAR ER 30 mg ER 30 mg tablet,exte tablet,exte nded nded release 24 release 24 hr hr Symbicort Symbicort 2018-07 Yes [place] Unknown Unknown 160 mcg-4.5 160 mcg-4.5 2- Gokul SALAZAR mcg/actuati mcg/actuati on HFA on HFA aerosol aerosol inhaler inhaler Spiriva Spiriva 2018-07 Yes Humza Unknown Unknown with with 2- Gokul SALAZAR HandiHaler HandiHaler 18 mcg and 18 mcg and inhalation inhalation capsules capsules ipratropium ipratropium 2018-07 Yes [place] Unknown Unknown -albuterol -albuterol 2- Gokul SALAZAR 0.5 mg-3 0.5 mg-3 mg(2.5 mg mg(2.5 mg base)/3 mL base)/3 mL nebulizatio nebulizatio n soln n soln finasteride finasteride 2018-07 Yes [place] Unknown Unknown 5 mg tablet 5 mg tablet 08-23 ,Gokul sertraline sertraline 2018-07 Yes Humza Unknown Unknown 100 mg 100 mg 08-23 ,Gokul tablet tablet tamsulosin tamsulosin 2018-07 Yes [place] Unknown Unknown 0.4 mg 0.4 mg 08-23 ,Gokul capsule capsule ondansetron ondansetron 2018-07 Yes [place] Unknown Unknown 4 mg 4 mg 08-23 Gokul SALAZAR disintegrat disintegrat ing tablet ing tablet simethicone simethicone 2018-07 Yes [place] Unknown Unknown 80 mg 80 mg 08-23 ,Gokul chewable chewable tablet tablet omeprazole omeprazole 2018-07 Yes [place] Unknown Unknown 20 mg 20 mg 08-23 ,Gokul capsule,del capsule,del ayed ayed release release metFORMIN metFORMIN 2018-07 Yes Humza Unknown Unknown 1,000 mg 1,000 mg 08-23 ,Gokul tablet tablet levothyroxi levothyroxi 2018-07 Yes [place] Unknown Unknown ne 50 mcg ne 50 mcg 08-23 ,Gokul tablet tablet Lactobac. Lactobac. 2018-07 Yes [place] Unknown Unknown acidophilus acidophilus 08-23 Gokul SALAZAR [...] ,Gokul tablet tablet cholecalcif cholecalcif 2018-07 Yes [place] Unknown Unknown murray murray - Gokul SALAZAR [...]
--- OUTSIDE RECORDS SUMMARY | 2019-07-03 10:11 | XMS REPORT ---
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 diastolic diastolic (congestive (congestive ) heart ) heart failure failure Pain frequent Pain Mgmt Active 2018-07 Mary pain 08-23 [place] 12:28: [id number] Respiratory dyspnea Respirator Active 2018-07 Mary present y 08-23 [place] 12:28: [id number] 00 Respiratory oxygen Respirator Active 2018-07 Mary treatments y 08-23 [place] in home 12:28: [id number] 00 Respiratory lung sounds Respirator Active 2018-07 Mary deficit y 08-23 [place] 12:28: [id number] 00 Endo/Carlos diabetic Endo/Carlos Active 2018-07 Mary foot care 08-23 [place] 12:28: [id number] 00 Sensory impaired Sensory Active 2018-07 Mary hearing 08-23 [place] 12:28: [id number] 00 Integument skin Integument Active 2018-07 Mary integrity 08-23 [place] risk 12:28: [id number] 00 Nutrition nutritional Nutrition Active 2018-07 Mary restriction 08-23 [place] s 12:28: [id number] 00 Elimination catheter Eliminatio Active 2018-07 Mary present n 08-23 [place] 12:28: [id number] 00 Elimination ostomy Eliminatio Active 2018-07 Mary present n 08-23 [place] 12:28: [id number] 00 Neuro confusion Neuro/Emot Active 2018-07 Mary present ion 08-23 [place] 12:28: [id number] 00 Activity ADL Activity Active 2018-07 Mary assistance 08-23 [place] required 12:28: [id number] 00 Activity self-care Activity Active 2018-07 Mary deficit 08-23 [place] 12:28: [id number] 00 Safety structural Safety Active 2018-07 Mary barriers 08-23 [place] present 12:28: [id number] 00 Safety fall risk Safety Active 2018-07 Mary factor 08-23 [place] present 12:28: [id number] 00 Safety risk for Safety Active 2018-07 Mary hospitaliza 08-23 [place] tion 12:28: [id number] 00 Safety can be left Safety Active 2018-07 Mary alone for 08-23 [place] only short 12:28: [id number] periods 00 Medication oral med Meds Active 2018-07 Mary assistance 08-23 [place] required 12:28: [id number] 00 Medication knowledge/s Meds Active 2018-07 Mary kill 08-23 [place] deficit: pt 12:28: [id number] 00 Medication knowledge/s Meds Active 2018-07 Mary kill 08-23 [place] deficit: cg 12:28: [id number] 00 Medication potential Meds Active 2018-07 Mary clinically 08-23 [place] significant 12:28: [id number] medication 00 issue Musculoskel transfer Musculoske Active 2018-07 Mary etal assistance letal 08-23 [place] required 12:28: [id number] 00 Musculoskel requires Musculoske Active 2018-07 Mary etal human letal 08-23 [place] assist to 12:28: [id number] leave home 00 Allergies, Adverse Reactions, Alerts [...] Humza Unknown Unknown 20 mg 20 mg 08-23 Gok[place] SALAZAR tablet tablet thiamine thiamine 2018-07 Yes Humza Unknown Unknown HCl HCl 08-23 Gokul SALAZAR (vitamin (vitamin B1) 100 mg B1) 100 mg tablet tablet atorvastati atorvastati 2018-07 Yes [place] Unknown Unknown n 20 mg n 20 mg 2 Gokul SALAZAR tablet tablet carvedilol carvedilol 2018-07 Yes Humza Unknown Unknown 25 mg 25 mg 08-23 Gokul SALAZAR tablet tablet DILT-XR 120 DILT-XR 120 2018-07 Yes [place] Unknown Unknown mg capsule, mg capsule, 2- Gokul SALAZAR extended extended release release isosorbide isosorbide 2018-07 Yes [place] Unknown Unknown mononitrate mononitrate 2- Gokul SALAZAR ER 30 mg ER 30 mg tablet,exte tablet,exte nded nded release 24 release 24 hr hr Symbicort Symbicort 2018-07 Yes [place] Unknown Unknown 160 mcg-4.5 160 mcg-4.5 2- Gokul SALAZAR mcg/actuati mcg/actuati on HFA on HFA aerosol aerosol inhaler inhaler Spiriva Spiriva 2018-07 Yes Humza Unknown Unknown with with 2 Gokul SALAZAR HandiHaler HandiHaler 18 mcg and 18 mcg and inhalation inhalation capsules capsules ipratropium ipratropium 2018-07 Yes [place] Unknown Unknown -albuterol -albuterol 2- Gokul SALAZAR 0.5 mg-3 0.5 mg-3 mg(2.5 mg mg(2.5 mg base)/3 mL base)/3 mL nebulizatio nebulizatio n soln n soln finasteride finasteride 2018-07 Yes Humza Unknown Unknown 5 mg tablet 5 mg tablet 2 Gokul SALAZAR sertraline sertraline 2018-07 Yes [place] Unknown Unknown 100 mg 100 mg 2- Gokul SALAZAR tablet tablet tamsulosin tamsulosin 2018-07 Yes [place] Unknown Unknown 0.4 mg 0.4 mg 2 Gokul SALAZAR capsule capsule ondansetron ondansetron 2018-07 Yes Humza Unknown Unknown 4 mg 4 mg 2 Gokul SALAZAR disintegrat disintegrat ing tablet ing tablet simethicone simethicone 2018-07 Yes Humza Unknown Unknown 80 mg 80 mg 2- Gokul SALAZAR chewable chewable tablet tablet omeprazole omeprazole 2018-07 Yes [place] Unknown Unknown 20 mg 20 mg 2- Gokul SALAZAR capsule,del capsule,del ayed ayed release release metFORMIN metFORMIN 2018-07 Yes Humza Unknown Unknown 1,000 mg 1,000 mg 2-17 ,Gokul tablet tablet levothyroxi levothyroxi 2018-07 Yes Humza Unknown Unknown ne 50 mcg ne 50 mcg 2- ,Gokul tablet tablet Lactobac. Lactobac. 2018-07 Yes [place] Unknown Unknown acidophilus acidophilus 2-17 MD,Gokul -Bifido. -Bifido. animalis 10 animalis 10 billion billion cell cell chewable chewable tablet tablet folic acid folic acid 2018-07 Yes [place] Unknown Unknown 1 mg tablet 1 mg tablet 08-23 Gokul SALAZAR magnesium magnesium 2018-07 Yes Humza Unknown Unknown oxide 400 oxide 400 08-23 Gokul SALAZAR mg (241.3 mg (241.3 mg mg magnesium) magnesium) tablet tablet colchicine colchicine 2018-07 Yes Humza Unknown Unknown 0.6 mg 0.6 mg 08-23 Gokul SALAZAR tablet tablet cholecalcif cholecalcif 2018-07 Yes Humza Unknown Unknown murray murray 08-23 Gokul SALAZAR (vitamin (vitamin D3) 1,000 D3) 1,000 unit unit capsule capsule Tums 200 mg Tums 200 mg 2018-07 Yes [place] Unknown Unknown calcium calcium 08-23 Gokul SALAZAR [...]
[2019-07-03 10:27] LABS: ABS Eosinophils 0.2 10^3/ul (0-0.6); ABS Lymphocytes 1.2 10^3/ul (1.0-4.8); ABS Monocytes 0.6 10^3/ul (0-0.8); ABS Neutrophils 8.5 10^3/ul (1.5-7.7); Eosinophil % 2.1 %; Hematocrit 40 % (42-52); Hemoglobin 13.2 g/dL (14.0-18.0); Lymphocyte % 11.4 %; Mean Corpuscular HGB Conc 33 g/dL (31-36); Mean Corpuscular Hemoglobin 28 pg (27-31); Mean Corpuscular Volume 85 fL (80-94); Mean Platelet Volume 7.4 fL (7.4-10.4); Nucleated Red Blood Cells % 0.3; Platelet Count 250 10^3/uL (150-450); Red Blood Count 4.72 10^6 /uL (4.18-5.48); Red Cell Distribution Width 15 % (10-15); White Blood Count 10.6 10^3/uL (3.5-10.8)
[2019-07-03 10:41] LABS: Albumin/Globulin Ratio 1.2 (1-3); BUN/Creatinine Ratio 13.6 (8-20); Calcium 9.4 mg/dL (8.6-10.3); EGFR African American 163.4 (>60); Globulin 3.3 g/dL (2-4); Potassium 3.9 mmol/L (3.5-5.0); Total Bilirubin 0.4 mg/dL (0.2-1.0); Total Protein 7.3 g/dL (6.4-8.9)
[2019-07-03 12:25] VITALS: BP 122/86
== END 2019-07-03 12:36 | disposition home or self-care (01) ==
LOC: ED 09:45
DX: J18.9 Pneumonia, unspecified organism (principal); R06.00 Dyspnea, unspecified; E11.9 Type 2 diabetes mellitus without complications; I48.91 Unspecified atrial fibrillation; I10 Essential (primary) hypertension; Z87.891 Personal history of nicotine dependence; Z86.79 Personal history of other diseases of the circulatory system
CPT/HCPCS: 36415; 71046; 80053; 85025; 99283; A9270-GY

== ENCOUNTER 2019-07-15 06:32 | Inpatient (IN) | payer OTHER ==
[2019-07-15] MEDS ORDERED: NS 0.9% 1000 ML** 1,000 ML IV ONE (06:36)
--- OUTSIDE RECORDS SUMMARY | 2019-07-15 06:39 | XMS REPORT ---
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 RN [...] Pain Mgmt Active 2018-07 Mary pain 2-17 [place] 12:28: [id number] 00 Respiratory dyspnea Respirator Active 2018-07 Mary present y 08-23 [place] 12:28: [id number] 00 Respiratory oxygen Respirator Active 2018-07 Mary treatments y 08-23 [place] in home 12:28: [id number] 00 Respiratory lung sounds Respirator Active 2018-07 Mary deficit y 08-23 [place] 12:28: [id number] 00 Endo/Carlos diabetic Endo/Carlos Active 2018-07 Mary foot care 08-23 [place] 12:28: [id number] 00 Sensory impaired Sensory Active 2018-07 Mary hearing 08-23 [place] 12:28: [id number] 00 Integument skin Integument Active 2018-07 Mary integrity 08-23 [place] risk 12:28: [id number] 00 Nutrition nutritional Nutrition Active 2018-07 Mary restriction 08-23 [place] s 12:28: [id number] 00 Elimination catheter Eliminatio Active 2018-07 Mary present n 08-23 [place] 12:28: [id number] 00 Elimination ostomy Eliminatio Resolve 2018-072019-06-24 Mary present n d 08-23 14:35:00 [place] 12:28: [id number] 00 Neuro confusion Neuro/Emot Active 2018-07 Mary present ion 08-23 [place] 12:28: [id number] 00 Activity ADL Activity Active 2018-07 Mary assistance 08-23 [place] required 12:28: [id number] 00 Activity self-care Activity Active 2018-07 Mary deficit 08-23 [place] 12:28: [id number] 00 Safety structural Safety Active 2018-07 Mary barriers 08-23 [place] present 12:28: [id number] 00 Safety fall risk Safety Active 2018-07 Mary factor 08-23 [place] present 12:28: [id number] 00 Safety risk for Safety Active 2018-07 Mary hospitaliza 08-23 [place] tion 12:28: [id number] 00 Safety can be left Safety Active 2018-07 Mary alone for 08-23 [place] only short 12:28: [id number] periods 00 Medication oral med Meds Active 2018-07 Mary assistance 08-23 [place] required 12:28: [id number] 00 Medication knowledge/s Meds Active 2018-07 Mary kill 08-23 [place] deficit: pt 12:28: [id number] 00 Medication knowledge/s Meds Active 2018-07 Mary garcia 2-17 [place] deficit: cg 12:28: [id number] 00 Medication potential Meds Active 2018-07 Mary clinically 2-17 [place] significant 12:28: [id number] medication 00 issue Musculoskel transfer Musculoske Active 2018-07 Mary etal assistance letal -17 [place] required 12:28: [id number] 00 Musculoskel requires Musculoske Active 2018-07 Mary etal human letal 2-17 [place] assist to 12:28: [id number] leave home 00 Cardio edema Cardiovasc Active 2018-07 Abigail ular 2-19 Carrier RN 14:35: 00 Cardio hypertensio Cardiovasc Active 2018-07 Abigail n ular 2-19 Carrier RN 14:35: 00 Respiratory nebulizer Respirator Active 2018-07 Abigail treatment y 2-19 [place] RN in home 14:35: 00 Integument knowledge/s Integument Active 2018-07 Abigail kill 2-23 [place]rier RN deficit: pt 15:25: 00 Integument knowledge/s Integument Active 2018-07 Abigali kill 2-26 Carrier RN deficit: cg 10:55: 00 Social knowledge/s SERGIO: Active 2018-07 Nancy Services kill Social 2-27 [place] deficit - Services 10:00: [id number] pt 00 Social knowledge/s SERGIO: Active 2018-07 Nancy Services kill Social 2-27 [place] deficit - Services 10:00: [id number] cg 00 Social knowledge/s SERGIO: Unknown 2018-07 Alicia Services kill Social 2-30 [place] deficit - Services 13:17: [id number] cg 00 Allergies, Adverse Reactions, Alerts Allergy Allergy Status Severity Reaction(s) Onset Inactive Treating Comments Name Type Date Date Clinician Unknown None Active Unknown None Unknown No Known Allergies For This Patient Medications Ordered Filled Start Stop Current Ordering Indication Dosage Frequency Signature Comments Components Medication Medication Date Date Medication? Clinician (SIG) Name Name furosemide furosemide 2018-07 Yes [place] Unknown Unknown 20 mg 20 mg 2- Gokul SALAZAR tablet tablet thiamine thiamine 2018-07 Yes [place] Unknown Unknown HCl HCl 2-17 Gokul SALAZAR (vitamin (vitamin B1) 100 mg B1) 100 mg tablet tablet atorvastati atorvastati 2018-07 Yes [place] Unknown Unknown n 20 mg n 20 mg 2-17 ,Gokul tablet tablet carvedilol carvedilol 2018-07 Yes [place] Unknown Unknown 25 mg 25 mg 2-17 ,Gokul tablet tablet DILT-XR 120 DILT-XR 120 2018-07 Yes Humza Unknown Unknown mg capsule, mg capsule, 2-17 ,Gokul extended extended release release isosorbide isosorbide 2018-07 Yes [place] Unknown Unknown mononitrate mononitrate 2-17 MD,Gokul ER 30 mg ER 30 mg tablet,exte tablet,exte nded nded release 24 release 24 hr hr Symbicort Symbicort 2018-07 Yes Humza Unknown Unknown 160 mcg-4.5 160 mcg-4.5 2-17 Gokul SALAZAR mcg/actuati mcg/actuati on HFA on HFA aerosol aerosol inhaler inhaler Spiriva Spiriva 2018-07 Yes Humza Unknown Unknown with with 2-17 Gokul SALAZAR HandiHaler HandiHaler 18 mcg and 18 mcg and inhalation inhalation capsules capsules ipratropium ipratropium 2018-07 Yes Humza Unknown Unknown -albuterol -albuterol 2-17 Gokul SALAZAR 0.5 mg-3 0.5 mg-3 mg(2.5 mg mg(2.5 mg base)/3 mL base)/3 mL nebulizatio nebulizatio n soln n soln finasteride finasteride 2018-07 Yes Humza Unknown Unknown 5 mg tablet 5 mg tablet 2-17 Gokul SALAZAR sertraline sertraline 2018-07 Yes Humza Unknown Unknown 100 mg 100 mg 2-17 Gokul SALAZAR tablet tablet tamsulosin tamsulosin 2018-07 Yes Humza Unknown Unknown 0.4 mg 0.4 mg 2-17 ,Gokul capsule capsule ondansetron ondansetron 2018-07 Yes [place] Unknown Unknown 4 mg 4 mg 2-17 Gokul SALAZAR disintegrat disintegrat ing tablet ing tablet simethicone simethicone 2018-07 Yes Humza Unknown Unknown 80 mg 80 mg 2-17 MD,Gokul chewable chewable tablet tablet omeprazole omeprazole 2018-07 Yes [place] Unknown Unknown 20 mg 20 mg 2-17 ,Gokul capsule,del capsule,del ayed ayed release release metFORMIN metFORMIN 2018-07 Yes [place] Unknown Unknown 1,000 mg 1,000 mg 2 Gokul SALAZAR tablet tablet levothyroxi levothyroxi 2018-07 Yes [place] Unknown Unknown ne 50 mcg ne 50 mcg 2 Gokul SALAZAR tablet tablet Lactobac. Lactobac. 2018-07 Yes [place] Unknown Unknown acidophilus acidophilus 08-23 Gokul SALAZAR -Bifido. -Bifido. animalis 10 animalis 10 billion billion cell cell chewable chewable tablet tablet folic acid folic acid 2018-07 Yes [place] Unknown Unknown 1 mg tablet 1 mg tablet 2- Gokul SALAZAR magnesium magnesium 2018-07 Yes [place] Unknown Unknown oxide 400 oxide 400 08-23 Gokul SALAZAR mg (241.3 mg (241.3 mg mg magnesium) magnesium) tablet tablet colchicine colchicine 2018-07 Yes Humza Unknown Unknown 0.6 mg 0.6 mg 2 Gokul SALAZAR tablet tablet cholecalcif cholecalcif 2018-07 Yes [place] Unknown Unknown murray murray 08-23 Gokul SALAZAR (vitamin (vitamin D3) 1,000 D3) 1,000 unit unit capsule capsule Tums 200 mg Tums 200 mg 2018-07 Yes Humza Unknown Unknown calcium calcium 08-23 Gokul SALAZAR (500 mg) (500 mg) chewable chewable tablet tablet oxygen oxygen 2018-07 Yes [place] Unknown Unknown 08-23 Gokul SALAZAR acetaminoph acetaminoph 2018-07 Yes Humza Unknown Unknown en 500 mg en 500 mg 08-29 Gokul SALAZAR tablet tablet azithromyci azithromyci 2018-07- Yes [place] Unknown Unknown n 250 mg n 250 mg 09-02 Gokul SALAZAR tablet tablet amoxicillin amoxicillin 2018-07 Yes Humza Unknown Unknown [id number] 09-02 Gokul SALAZAR mg-potassiu mg-potassiu m m clavulanate clavulanate 125 mg 125 mg tablet tablet diphenhydrA diphenhydrA 2018-07 Yes Humza Unknown Unknown MINE 25 mg MINE 25 mg 09-02 Gokul SALAZAR tablet tablet Zithromax Zithromax 2018-07 Yes [place] Unknown Unknown 250 mg 250 mg 09-03 Gokul SALAZAR tablet tablet Vital Signs Vital Name Observation Time Observation Value Comments SYSTOLIC mm[Hg] 2019-07-08 18:09:40 130 mm[Hg] mm[Hg] Method: Sit SYSTOLIC mm[Hg] 2019-06-22 18:09:24 148 mm[Hg] mm[Hg] Method: Stand DIASTOLIC mm[Hg] 2019-07-08 18:09:40 80 mm[Hg] mm[Hg] Method: Sit DIASTOLIC mm[Hg] 2019-06-22 18:09:24 84 mm[Hg] mm[Hg] Method: Stand PULSE 2019-07-08 18:09:40 84 /min /min RESP RATE 2019-07-08 18:09:40 16 /min /min TEMP 2019-07-08 18:09:40 97.9 [degF] Procedures This patient has no known procedures. Results This patient has no known results.
--- OUTSIDE RECORDS SUMMARY | 2019-07-15 06:39 | XMS REPORT ---
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 rodent exterminator Diagnosis Active Abigail (current) (current) Carrier [...] Pain Mgmt Active 2018-07 Mary pain 2-17 [place] 12:28: [id number] 00 Respiratory dyspnea Respirator Active 2018-07 Mary present y 08-23 [place] 12:28: [id number] 00 Respiratory oxygen Respirator Active 2018-07 Mary treatments y 08-23 [place] in home 12:28: [id number] Respiratory lung sounds Respirator Active 2018-07 Mary deficit y 08-23 [place] 12:28: [id number] 00 Endo/Carlos diabetic Endo/Carlos Active 2018-07 Mary foot care 08-23 [place] 12:28: [id number] 00 Sensory impaired Sensory Active 2018-07 Mary hearing 08-23 [place] 12:28: [id number] 00 Integument skin Integument Active 2018-07 Mary integrity 08-23 [place] risk 12:28: [id number] 00 Nutrition nutritional Nutrition Active 2018-07 Mary restriction 08-23 [place] 12:28: [id number] 00 Elimination catheter Eliminatio Active 2018-07 Mary present n 08-23 [place] 12:28: [id number] 00 Elimination ostomy Eliminatio Resolve 2018-072019-06-24 Mary present n d 08-23 14:35:00 [place] 12:28: [id number] 00 Neuro confusion Neuro/Emot Active 2018-07 Mary present ion 08-23 [place] 12:28: [id number] 00 Activity ADL Activity Active 2018-07 Mary assistance 08-23 [place] required 12:28: [id number] Activity self-care Activity Active 2018-07 Mary deficit 08-23 [place] 12:28: [id number] 00 Safety structural Safety Active 2018-07 Mary barriers 08-23 [place] present 12:28: [id number] 00 Safety fall risk Safety Active 2018-07 Mary factor 08-23 [place] present 12:28: [id number] 00 Safety risk for Safety Active 2018-07 Mary hospitaliza 08-23 [place] tion 12:28: [id number] 00 Safety can be left Safety Active 2018-07 Mary alone for 08-23 [place] only short 12:28: [id number] periods 00 Medication oral med Meds Active 2018-07 Mary assistance 08-23 [place] required 12:28: [id number] 00 Medication knowledge/s Meds Active 2018-07 Mary kill 08-23 [place] deficit: pt 12:28: [id number] 00 Medication knowledge/s Meds Active 2018-07 Mary kill 2-17 [place] deficit: cg 12:28: [id number] 00 Medication potential Meds Active 2018-07 Mary clinically 2-17 [place] significant 12:28: [id number] medication 00 issue Musculoskel transfer Musculoske Active 2018-07 Mary etal assistance letal -17 [place] required 12:28: [id number] 00 Musculoskel requires Musculoske Active 2018-07 Mary etal human letal -17 [place] assist to 12:28: [id number] leave home 00 Cardio edema Cardiovasc Active [...] Integument knowledge/s Integument Active 2018-07 Abigail kill 2-26 Carrier RN deficit: cg 10:55: 00 Social knowledge/s SERGIO: Active 2018-07 Nancy Services kill Social -27 [place] deficit - Services 10:00: [id number] pt 00 Social knowledge/s SERGIO: Resolve 2018-072019-07-02 Nancy Services kill Social d 2-27 10:00:00 [place] deficit - Services 10:00: [id number] cg 00 Allergies, Adverse Reactions, Alerts Allergy Allergy Status Severity Reaction(s) Onset Inactive Treating Comments Name Type Date Date Clinician Unknown None Active Unknown None Unknown No Known Allergies For This Patient Medications Ordered Filled Start Stop Current Ordering Indication Dosage Frequency Signature Comments Components Medication Medication Date Date Medication? Clinician (SIG) Name Name furosemide furosemide 2018-07 Yes [place] Unknown Unknown 20 mg 20 mg 2-17 [...] tablet DILT-XR 120 DILT-XR 120 2018-07 Yes [place] Unknown Unknown mg capsule, mg capsule, 2-17 Gokul SALAZAR extended extended release release isosorbide isosorbide 2018-07 Yes [place] Unknown Unknown mononitrate mononitrate 2-17 Gokul SALAZAR ER 30 mg ER 30 mg tablet,exte tablet,exte nded nded release 24 release 24 hr hr Symbicort Symbicort 2018-07 Yes Humza Unknown Unknown 160 mcg-4.5 160 mcg-4.5 2- Gokul SALAZAR mcg/actuati mcg/actuati on HFA on HFA aerosol aerosol inhaler inhaler Spiriva Spiriva 2018-07 Yes Humza Unknown Unknown with with 2- Gokul SALZAAR HandiHaler HandiHaler 18 mcg and 18 mcg and inhalation inhalation capsules capsules ipratropium ipratropium 2018-07 Yes Humza Unknown Unknown -albuterol -albuterol 2-17 Gokul SALAZAR 0.5 mg-3 0.5 mg-3 mg(2.5 mg mg(2.5 mg base)/3 mL base)/3 mL nebulizatio nebulizatio n soln n soln finasteride finasteride 2018-07 Yes [place] Unknown Unknown 5 mg tablet 5 mg tablet 2- Gokul SALAZAR sertraline sertraline 2018-07 Yes Humza Unknown Unknown 100 mg 100 mg 2- Gokul SALAZAR tablet tablet tamsulosin tamsulosin 2018-07 Yes Humza Unknown Unknown 0.4 mg 0.4 mg 2- Gokul SALAZAR capsule capsule ondansetron ondansetron 2018-07 Yes Humza Unknown Unknown 4 mg 4 mg 2- Gokul SALAZAR disintegrat disintegrat ing tablet ing tablet simethicone simethicone 2018-07 Yes [place] Unknown Unknown 80 mg 80 mg 2-17 ,Gokul chewable chewable tablet tablet omeprazole omeprazole 2018-07 Yes [place] Unknown Unknown 20 mg 20 mg 2- ,Gokul capsule,del capsule,del ayed ayed release release metFORMIN metFORMIN 2018-07 Yes [place] Unknown Unknown 1,000 mg 1,000 mg 2-17 ,Gokul tablet tablet levothyroxi levothyroxi 2018-07 Yes [place] Unknown Unknown ne 50 mcg ne 50 mcg 2 Gokul SALAZAR tablet tablet Lactobac. Lactobac. 2018-07 Yes Humza Unknown Unknown acidophilus acidophilus 2 Goklu SALAZAR -Bifido. -Bifido. animalis 10 animalis 10 billion billion cell cell chewable chewable tablet tablet folic acid folic acid 2018-07 Yes [place] Unknown Unknown 1 mg tablet 1 mg tablet 2 Gokul SALAZAR magnesium magnesium 2018-07 Yes [place] Unknown Unknown oxide 400 oxide 400 2 [...] 2018-07 Yes Humza Unknown Unknown calcium calcium 2- Gokul SALAZAR (500 mg) (500 mg) chewable chewable tablet tablet oxygen oxygen 2018-07 Yes Humza Unknown Unknown 2- Gokul SALAZAR acetaminoph acetaminoph 2018-07 Yes [place] Unknown Unknown en 500 mg en 500 mg 08-29 ,Gokul tablet tablet Vital Signs Vital Name Observation Time Observation Value Comments SYSTOLIC mm[Hg] 2019-07-05 18:09:37 124 mm[Hg] mm[Hg] Method: Sit SYSTOLIC mm[Hg] 2019-06-22 18:09:24 148 mm[Hg] mm[Hg] Method: Stand DIASTOLIC mm[Hg] 2019-07-05 18:09:37 80 mm[Hg] mm[Hg] Method: Sit DIASTOLIC mm[Hg] 2019-06-22 18:09:24 84 mm[Hg] mm[Hg] Method: Stand PULSE 2019-07-05 18:09:37 78 /min /min RESP RATE 2019-07-05 18:09:37 18 /min /min TEMP 2019-07-05 18:09:37 98 [degF] Procedures This patient has no known procedures. Results This patient has no known results.
--- OUTSIDE RECORDS SUMMARY | 2019-07-15 06:39 | XMS REPORT ---
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 Diagnosis Active Abigail (current) (current) Carrier RN [...] Pain Mgmt Active 2018-07 Mary pain 2-17 [place] 12:28: [id number] 00 Respiratory dyspnea Respirator Active 2018-07 Mary present y 08-23 [place] 12:28: [id number] 00 Respiratory oxygen Respirator Active 2018-07 Mary treatments y 08-23 [place] in home 12:28: [id number] 00 Respiratory lung sounds Respirator Active 2018-07 Mary deficit y 08-23 [place] 12:28: [id number] 00 Endo/Carlos diabetic Endo/Carlos Active 2018-07 Mary foot care 08-23 [place] 12:28: [id number] 00 Sensory impaired Sensory Active 2018-07 Mary hearing 08-23 [place] 12:28: [id number] 00 Integument skin Integument Active 2018-07 Mary integrity 08-23 [place] risk 12:28: [id number] 00 Nutrition nutritional Nutrition Active 2018-07 Mary restriction 08-23 [place] s 12:28: [id number] 00 Elimination catheter Eliminatio Active 2018-07 Mary present n 08-23 [place] 12:28: [id number] 00 Elimination ostomy Eliminatio Resolve 2018-072019-06-24 Mary present n d 08-23 14:35:00 [place] 12:28: [id number] 00 Neuro confusion Neuro/Emot Active 2018-07 Mary present ion 08-23 [place] 12:28: [id number] 00 Activity ADL Activity Active 2018-07 Mary assistance 08-23 [place] required 12:28: [id number] 00 Activity self-care Activity Active 2018-07 Mary deficit 08-23 [place] 12:28: [id number] 00 Safety structural Safety Active 2018-07 Mary barriers 08-23 [place] present 12:28: [id number] 00 Safety fall risk Safety Active 2018-07 Mary factor 08-23 [place] present 12:28: [id number] 00 Safety risk for Safety Active 2018-07 Mary hospitaliza 08-23 [place] tion 12:28: [id number] 00 Safety can be left Safety Active 2018-07 Mary alone for 08-23 [place] only short 12:28: [id number] periods 00 Medication oral med Meds Active 2018-07 Mary assistance 08-23 [place] required 12:28: [id number] 00 Medication knowledge/s Meds Active 2018-07 Mary kill 08-23 [place] deficit: pt 12:28: [id number] 00 Medication knowledge/s Meds Active 2018-07 Mary kill 2-17 [place] deficit: cg 12:28: [id number] 00 Medication potential Meds Active 2018-07 Mary clinically 2-17 [place] significant 12:28: [id number] medication 00 issue Musculoskel transfer Musculoske Active 2018-07 Mary etal assistance letal -17 [place] required 12:28: [id number] 00 Musculoskel requires Musculoske Active 2018-07 Mary etal human letal -17 [place] assist to 12:28: [id number] leave home 00 Cardio edema Cardiovasc Active [...] Social -27 [place] deficit - Services 10:00: [id number] pt 00 Social knowledge/s SERGIO: Resolve 2018-072019-07-02 Nancy Services kill Social d 2-27 10:00:00 [place] deficit - Services 10:00: [id number] cg 00 Allergies, Adverse Reactions, Alerts Allergy [...] Humza Unknown Unknown 20 mg 20 mg 2-17 Gokul SALAZAR tablet tablet thiamine thiamine 2018-07 Yes [place] Unknown Unknown HCl HCl 2-17 Gokul SALAZAR (vitamin (vitamin B1) 100 mg B1) 100 mg tablet tablet atorvastati atorvastati 2018-07 Yes Humza Unknown Unknown n 20 mg n 20 mg 2-17 Gokul SALAZAR tablet tablet carvedilol carvedilol 2018-07 Yes Humza Unknown Unknown 25 mg 25 mg 2- Gokul SALAZAR tablet tablet DILT-XR 120 DILT-XR 120 2018-07 Yes [place] Unknown Unknown mg capsule, mg capsule, 2-17 Gokul SALAZAR extended extended release release isosorbide isosorbide 2018-07 Yes Humza Unknown Unknown mononitrate mononitrate 2-17 Gokul SALAZAR [...] inhalation capsules capsules ipratropium ipratropium 2018-07 Yes [place] Unknown Unknown -albuterol -albuterol 2-17 Gokul SALAZAR [...] SALAZAR capsule capsule ondansetron ondansetron 2018-07 Yes [place] Unknown Unknown 4 mg 4 mg 2- Gokul SALAZAR disintegrat disintegrat ing tablet ing tablet simethicone simethicone 2018-07 Yes Humza Unknown Unknown 80 mg 80 mg 2-17 ,Gokul chewable chewable tablet tablet omeprazole omeprazole 2018-07 Yes [place] Unknown Unknown 20 mg 20 mg 2- ,Gokul capsule,del capsule,del ayed ayed release release metFORMIN metFORMIN 2018-07 Yes Humza Unknown Unknown 1,000 mg 1,000 mg 2-17 ,Gokul tablet tablet levothyroxi levothyroxi 2018-07 Yes Humza Unknown Unknown ne 50 mcg ne 50 mcg 2 Gokul SALAZAR tablet tablet Lactobac. Lactobac. 2018-07 Yes Humza Unknown Unknown acidophilus acidophilus 2 Gokul SALAZAR -Bifido. -Bifido. animalis 10 animalis 10 billion billion cell cell chewable chewable tablet tablet folic acid folic acid 2018-07 Yes Humza Unknown Unknown 1 mg tablet 1 mg tablet 2 Gokul SALAZAR magnesium magnesium 2018-07 Yes Humza Unknown Unknown oxide 400 oxide 400 2 Gokul SALAZAR mg (241.3 mg (241.3 mg mg magnesium) magnesium) tablet tablet colchicine colchicine 2018-07 Yes Humza Unknown Unknown 0.6 mg 0.6 mg 2 Gokul SALAZAR tablet tablet cholecalcif cholecalcif 2018-07 Yes [place] Unknown Unknown murray murray 08-23 Gokul SALAZAR (vitamin (vitamin D3) 1,000 D3) 1,000 unit unit capsule capsule Tums 200 mg Tums 200 mg 2018-07 Yes Humza Unknown Unknown calcium calcium 2- Gokul SALAZAR (500 mg) (500 mg) chewable chewable tablet tablet oxygen oxygen 2018-07 Yes [place] Unknown Unknown 2- Gokul SALAZAR acetaminoph acetaminoph 2018-07 Yes Humza [...]
--- OUTSIDE RECORDS SUMMARY | 2019-07-15 06:39 | XMS REPORT ---
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 Active Abigail (current) (current) Carrier RN [...] Pain Mgmt Active 2018-07 Mary pain 2-17 [place] 12:28: [id number] 00 Respiratory dyspnea Respirator Active 2018-07 Mary present y 08-23 [place] 12:28: [id number] 00 Respiratory oxygen Respirator Active 2018-07 Mary treatments y 08-23 [place] in home 12:28: [id number] 00 Respiratory lung sounds Respirator Active 2018-07 Mary deficit y 08-23 [place] 12:28: [id number] 00 Endo/Carlos diabetic Endo/Carlos Active 2018-07 Mary foot care 08-23 [place] 12:28: [id number] 00 Sensory impaired Sensory Active 2018-07 Mary hearing 08-23 [place] 12:28: [id number] 00 Integument skin Integument Active 2018-07 Mary integrity 08-23 [place] risk 12:28: [id number] 00 Nutrition nutritional Nutrition Active 2018-07 Mary restriction 08-23 [place] s 12:28: [id number] 00 Elimination catheter Eliminatio Active 2018-07 Mary present n 08-23 [place] 12:28: [id number] 00 Elimination ostomy Eliminatio Resolve 2018-072019-06-24 Mary present n d 08-23 14:35:00 [place] 12:28: [id number] 00 Neuro confusion Neuro/Emot Active 2018-07 Mary present ion 08-23 [place] 12:28: [id number] 00 Activity ADL Activity Active 2018-07 Mary assistance 08-23 [place] required 12:28: [id number] 00 Activity self-care Activity Active 2018-07 Mary deficit 08-23 [place] 12:28: [id number] 00 Safety structural Safety Active 2018-07 Mary barriers 08-23 [place] present 12:28: [id number] 00 Safety fall risk Safety Active 2018-07 Mary factor 08-23 [place] present 12:28: [id number] 00 Safety risk for Safety Active 2018-07 Mary hospitaliza 08-23 [place] tion 12:28: [id number] 00 Safety can be left Safety Active 2018-07 Mary alone for 08-23 [place] only short 12:28: [id number] periods 00 Medication oral med Meds Active 2018-07 Mary assistance 08-23 [place] required 12:28: [id number] 00 Medication knowledge/s Meds Active 2018-07 Mary kill 08-23 [place] deficit: pt 12:28: [id number] 00 Medication knowledge/s Meds Active 2018-07 Mary garcia 2-17 [place] deficit: cg 12:28: [id number] 00 Medication potential Meds Active 2018-07 Mary clinically 2-17 [place] significant 12:28: [id number] medication 00 issue Musculoskel transfer Musculoske Active 2018-07 Mary etal assistance letal -17 [place] required 12:28: [id number] 00 Musculoskel requires Musculoske Active 2018-07 Mary etal human letal 2-17 [place] assist to 12:28: [id number] leave home 00 Cardio edema Cardiovasc Active [...] Social 2-27 [place] deficit - Services 10:00: [id number] pt 00 Social knowledge/s SERGIO: Active 2018-07 Nancy Services kill Social 2-27 [place] deficit - Services 10:00: [id number] cg 00 Social knowledge/s SERGIO: Unknown 2018-07 Alicia Services kill Social 2-30 [place] deficit - Services 13:17: [id number] cg 00 Allergies, Adverse Reactions, Alerts Allergy Allergy Status Severity Reaction(s) Onset Inactive Treating Comments Name Type Date Date Clinician Unknown None Active Unknown None Unknown No Known Allergies For This Patient Medications Ordered Filled Start Stop Current Ordering Indication Dosage Frequency Signature Comments Components Medication Medication Date Date Medication? Clinician (SIG) Name Name furosemide furosemide 2018-07 Yes [place] Unknown Unknown 20 mg 20 mg 2- Gokul SALAZAR tablet tablet thiamine thiamine 2018-07 Yes [place] Unknown Unknown HCl HCl 2-17 Gokul SALAZAR (vitamin (vitamin B1) 100 mg B1) 100 mg tablet tablet atorvastati atorvastati 2018-07 Yes [place] Unknown Unknown n 20 mg n 20 mg 2-17 ,Gokul tablet tablet carvedilol carvedilol 2018-07 Yes [place] Unknown Unknown 25 mg 25 mg 2-17 ,Gokul tablet tablet DILT-XR 120 DILT-XR 120 2018-07 Yes Humza Unknown Unknown mg capsule, mg capsule, 2-17 ,Gokul extended extended release release isosorbide isosorbide 2018-07 Yes [place] Unknown Unknown mononitrate mononitrate 2-17 MD,Gokul ER [...] ,Gokul capsule capsule ondansetron ondansetron 2018-07 Yes [place] Unknown Unknown 4 mg 4 mg 2-17 Gokul SALAZAR disintegrat disintegrat ing tablet ing tablet simethicone simethicone 2018-07 Yes Humza Unknown Unknown 80 mg 80 mg 2-17 MD,Gokul chewable chewable tablet tablet omeprazole omeprazole 2018-07 Yes [place] Unknown Unknown 20 mg 20 mg 2-17 ,Gokul capsule,del capsule,del ayed ayed release release metFORMIN metFORMIN 2018-07 Yes [place] Unknown Unknown 1,000 mg 1,000 mg 2 Gokul SALAZAR tablet tablet levothyroxi levothyroxi 2018-07 Yes [place] Unknown Unknown ne 50 mcg ne 50 mcg 2 Gokul SALAZAR tablet tablet Lactobac. Lactobac. 2018-07 Yes [place] Unknown Unknown acidophilus acidophilus 08-23 Gokul SALAZAR -Bifido. -Bifido. animalis 10 animalis 10 billion billion cell cell chewable chewable tablet tablet folic acid folic acid 2018-07 Yes [place] Unknown Unknown 1 mg tablet 1 mg tablet 2- Gokul SALAZAR magnesium magnesium 2018-07 Yes [place] Unknown Unknown oxide 400 oxide 400 08-23 Gokul SALAZAR mg (241.3 mg (241.3 mg mg magnesium) magnesium) tablet tablet colchicine colchicine 2018-07 Yes Humza Unknown Unknown 0.6 mg 0.6 mg 2 Gokul SALAZAR tablet tablet cholecalcif cholecalcif 2018-07 Yes [place] Unknown Unknown murray murray 08-23 Gokul SALAZAR (vitamin (vitamin D3) 1,000 D3) 1,000 unit unit capsule capsule Tums 200 mg Tums 200 mg 2018-07 Yes Humza Unknown Unknown calcium calcium 08-23 Gokul SALAZAR (500 mg) (500 mg) chewable chewable tablet tablet oxygen oxygen 2018-07 Yes [place] Unknown Unknown 08-23 Gokul SALAZAR acetaminoph acetaminoph 2018-07 Yes Humza Unknown Unknown en 500 mg en 500 mg 08-29 Gokul SALAZAR tablet tablet azithromyci azithromyci 2018-07- Yes [place] Unknown Unknown n 250 mg n 250 mg 09-02 Gokul SALAZAR tablet tablet amoxicillin amoxicillin 2018-07 Yes Humza Unknown Unknown [id number] 09-02 Gokul SALAZAR mg-potassiu mg-potassiu m m clavulanate clavulanate 125 mg 125 mg tablet tablet diphenhydrA diphenhydrA 2018-07 Yes Humza Unknown Unknown MINE 25 mg MINE 25 mg 09-02 Gokul SALAZAR tablet tablet Zithromax Zithromax 2018-07 Yes [place] Unknown Unknown 250 mg 250 mg 09-03 Gokul SALAZAR tablet tablet Vital Signs Vital Name Observation Time Observation Value Comments SYSTOLIC mm[Hg] 2019-07-13 18:09:45 120 mm[Hg] mm[Hg] Method: Sit SYSTOLIC mm[Hg] 2019-06-22 18:09:24 148 mm[Hg] mm[Hg] Method: Stand DIASTOLIC mm[Hg] 2019-07-13 18:09:45 52 mm[Hg] mm[Hg] Method: Sit DIASTOLIC mm[Hg] 2019-06-22 18:09:24 84 mm[Hg] mm[Hg] Method: Stand PULSE 2019-07-13 18:09:45 72 /min /min RESP RATE 2019-07-08 18:09:40 16 /min /min TEMP 2019-07-13 18:09:45 98.2 [degF] Procedures This patient has no known procedures. Results This patient has no known results.
--- OUTSIDE RECORDS SUMMARY | 2019-07-15 06:39 | XMS REPORT ---
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 ro[facility] winder [facility] Diagnosis Active Abigail (current) (current) [...] Pain Mgmt Active 2018-07 Mary pain 2-17 [place] 12:28: [id number] Respiratory dyspnea Respirator Active 2018-07 Mary present y 08-23 [place] 12:28: [id number] 00 Respiratory oxygen Respirator Active 2018-07 Mary treatments y 08-23 [place] in home 12:28: [id number] 00 Respiratory lung sounds Respirator Active 2018-07 Mary deficit y 08-23 [place] 12:28: [id number] Endo/Carlos diabetic Endo/Carlos Active 2018-07 Mary foot care 08-23 [place] 12:28: [id number] Sensory impaired Sensory Active 2018-07 Mary hearing 08-23 [place] 12:28: [id number] 00 Integument skin Integument Active 2018-07 Mary integrity 08-23 [place] risk 12:28: [id number] Nutrition nutritional Nutrition Active 2018-07 Mary restriction 08-23 [place] s 12:28: [id number] Elimination catheter Eliminatio Active 2018-07 Mary present n 08-23 [place] 12:28: [id number] 00 Elimination ostomy Eliminatio Resolve 2018-072019-06-24 Mary present n d 08-23 14:35:00 [place] 12:28: [id number] 00 Neuro confusion Neuro/Emot Active 2018-07 Mary present ion 08-23 [place] 12:28: [id number] Activity ADL Activity Active 2018-07 Mary assistance 08-23 [place] required 12:28: [id number] 00 Activity self-care Activity Active 2018-07 Mary deficit 08-23 [place] 12:28: [id number] 00 Safety structural Safety Active 2018-07 Mary barriers 08-23 [place] present 12:28: [id number] 00 Safety fall risk Safety Active 2018-07 Mary factor 08-23 [place] present 12:28: [id number] 00 Safety risk for Safety Active 2018-07 Mary hospitaliza 08-23 [place] tion 12:28: [id number] 00 Safety can be left Safety Active 2018-07 Mary alone for 08-23 [place] only short 12:28: [id number] periods 00 Medication oral med Meds Active 2018-07 Mary assistance 08-23 [place] required 12:28: [id number] 00 Medication knowledge/s Meds Active 2018-07 Mary kill 08-23 [place] deficit: pt 12:28: [id number] 00 Medication knowledge/s Meds Active 2018-07 Mary garcia 2-17 [place] deficit: cg 12:28: [id number] 00 Medication potential Meds Active 2018-07 Mary clinically 2-17 [place] significant 12:28: [id number] medication 00 issue Musculoskel transfer Musculoske Active 2018-07 Mary etal assistance letal -17 [place] required 12:28: [id number] 00 Musculoskel requires Musculoske Active 2018-07 Mary etal human letal 2-17 [place] assist to 12:28: [id number] leave home 00 Cardio edema Cardiovasc Active [...] Social 2-27 [place] deficit - Services 10:00: [id number] pt 00 Social knowledge/s SERGIO: Active 2018-07 Nancy Services kill Social 2-27 [place] deficit - Services 10:00: [id number] cg 00 Social knowledge/s SERGIO: Active 2018-07 Alicia Services kill Social 2-30 [place] deficit - Services 13:17: [id number] cg 00 Allergies, Adverse Reactions, Alerts Allergy Allergy Status Severity Reaction(s) Onset Inactive Treating Comments Name Type Date Date Clinician Unknown None Active Unknown None Unknown No Known Allergies For This Patient Medications Ordered Filled Start Stop Current Ordering Indication Dosage Frequency Signature Comments Components Medication Medication Date Date Medication? Clinician (SIG) Name Name furosemide furosemide 2018-07 Yes Hernandez Unknown Unknown 20 mg 20 mg 2- Gokul SALAZAR tablet tablet thiamine thiamine 2018-07 Yes Humza Unknown Unknown HCl HCl 2- Gokul SALAZAR (vitamin (vitamin B1) 100 mg B1) 100 mg tablet tablet atorvastati atorvastati 2018-07 Yes Humza Unknown Unknown n 20 mg n 20 mg 2-17 ,Gokul tablet tablet carvedilol carvedilol 2018-07 Yes Hernandez Unknown Unknown 25 mg 25 mg 2-17 ,Gokul tablet tablet DILT-XR 120 DILT-XR 120 2018-07 Yes Hernandez Unknown Unknown mg capsule, mg capsule, 2-17 ,Gokul extended extended release release isosorbide isosorbide 2018-07 Yes Hernandez Unknown Unknown mononitrate mononitrate 2-17 MD,Gokul ER [...] inhalation capsules capsules ipratropium ipratropium 2018-07 Yes Hernandez Unknown Unknown -albuterol -albuterol 2-17 Gokul SALAZAR [...] ,Gokul capsule capsule ondansetron ondansetron 2018-07 Yes Hernandez Unknown Unknown 4 mg 4 mg 2-17 Gokul SALAZAR disintegrat disintegrat ing tablet ing tablet simethicone simethicone 2018-07 Yes Hernandez Unknown Unknown 80 mg 80 mg 2-17 MD,Gokul chewable chewable tablet tablet omeprazole omeprazole 2018-07 Yes Hernandez Unknown Unknown 20 mg 20 mg 2-17 ,Gokul capsule,del capsule,del ayed ayed release release metFORMIN metFORMIN 2018-07 Yes Hernandez Unknown Unknown 1,000 mg 1,000 mg 2 Gokul SALAZAR tablet tablet levothyroxi levothyroxi 2018-07 Yes Hernandez Unknown Unknown ne 50 mcg ne 50 mcg 08-23 Gokul SALAZAR tablet tablet Lactobac. Lactobac. 2018-07 Yes Hernandez Unknown Unknown acidophilus acidophilus 08-23 Gokul SALAZAR -Bifido. -Bifido. animalis 10 animalis 10 billion billion cell cell chewable chewable tablet tablet folic acid folic acid 2018-07 Yes Hernandez Unknown Unknown 1 mg tablet 1 mg tablet 2- Gokul SALAZAR magnesium magnesium 2018-07 Yes Hernandez Unknown Unknown oxide 400 oxide 400 08-23 Gokul SALAZAR mg (241.3 mg (241.3 mg mg magnesium) magnesium) tablet tablet colchicine colchicine 2018-07 Yes Hernandez Unknown Unknown 0.6 mg 0.6 mg 08-23 Gokul SLAAZAR tablet tablet cholecalcif cholecalcif 2018-07 Yes Hernandez Unknown Unknown murray murray 08-23 Gokul SALAZAR (vitamin (vitamin D3) 1,000 D3) 1,000 unit unit capsule capsule Tums 200 mg Tums 200 mg 2018-07 Yes Hernandez Unknown Unknown calcium calcium 08-23 Gokul SALAZAR (500 mg) (500 mg) chewable chewable tablet tablet oxygen oxygen 2018-07 Yes Humza Unknown Unknown 08-23 Gokul SALAZAR acetaminoph acetaminoph 2018-07 Yes Hernandez Unknown Unknown en 500 mg en 500 mg 08-29 Gokul SALAZAR tablet tablet azithromyci azithromyci 2018-07 Yes Hernandez Unknown Unknown n 250 mg n 250 mg 09-02 Gokul SALAZAR tablet tablet amoxicillin amoxicillin 2018-07 Yes Hernandez Unknown Unknown [id number] 09-02 Gokul SALAZAR mg-potassiu mg-potassiu m m clavulanate clavulanate 125 mg 125 mg tablet tablet diphenhydrA diphenhydrA 2018-07 Yes Uhmza Unknown Unknown MINE 25 mg MINE 25 mg 09-02 Gokul SALAZAR tablet tablet Vital Signs Vital [...]
--- OUTSIDE RECORDS SUMMARY | 2019-07-15 06:39 | XMS REPORT ---
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 rn long term care [facility] Diagnosis Active Abigail (current) (current) Carrier [...] Pain Mgmt Active 2018-07 Mary pain 2-17 [place] 12:28: [id number] 00 Respiratory dyspnea Respirator Active 2018-07 Mary present y 08-23 [place] 12:28: [id number] 00 Respiratory oxygen Respirator Active 2018-07 Mary treatments y 08-23 [place] in home 12:28: [id number] 00 Respiratory lung sounds Respirator Active 2018-07 Mary deficit y 08-23 [place] 12:28: [id number] 00 Endo/Carlos diabetic Endo/Carlos Active 2018-07 Mary foot care 08-23 [place] 12:28: [id number] 00 Sensory impaired Sensory Active 2018-07 Mary hearing 08-23 [place] 12:28: [id number] 00 Integument skin Integument Active 2018-07 Mary integrity 08-23 [place] risk 12:28: [id number] 00 Nutrition nutritional Nutrition Active 2018-07 Mary restriction 08-23 [place] s 12:28: [id number] 00 Elimination catheter Eliminatio Active 2018-07 Mary present n 08-23 [place] 12:28: [id number] 00 Elimination ostomy Eliminatio Resolve 2018-072019-06-24 Mary present n d 08-23 14:35:00 [place] 12:28: [id number] 00 Neuro confusion Neuro/Emot Active 2018-07 Mary present ion 08-23 [place] 12:28: [id number] 00 Activity ADL Activity Active 2018-07 Mary assistance 08-23 [place] required 12:28: [id number] 00 Activity self-care Activity Active 2018-07 Mary deficit 08-23 [place] 12:28: [id number] 00 Safety structural Safety Active 2018-07 Mary barriers 08-23 [place] present 12:28: [id number] 00 Safety fall risk Safety Active 2018-07 Mary factor 08-23 [place] present 12:28: [id number] 00 Safety risk for Safety Active 2018-07 Mary hospitaliza 08-23 [place] tion 12:28: [id number] 00 Safety can be left Safety Active 2018-07 Mary alone for 08-23 [place] only short 12:28: [id number] periods 00 Medication oral med Meds Active 2018-07 Mary assistance 08-23 [place] required 12:28: [id number] 00 Medication knowledge/s Meds Active 2018-07 Mary kill 08-23 [place] deficit: pt 12:28: [id number] 00 Medication knowledge/s Meds Active 2018-07 Mary garcia 2-17 [place] deficit: cg 12:28: [id number] 00 Medication potential Meds Active 2018-07 Mary clinically 2-17 [place] significant 12:28: [id number] medication 00 issue Musculoskel transfer Musculoske Active 2018-07 Mary etal assistance letal -17 [place] required 12:28: [id number] 00 Musculoskel requires Musculoske Active 2018-07 Mary etal human letal 2-17 [place] assist to 12:28: [id number] leave home 00 Cardio edema Cardiovasc Active [...] Social 2-27 [place] deficit - Services 10:00: [id number] pt 00 Social knowledge/s SERGIO: Active 2018-07 Nancy Services kill Social 2-27 [place] deficit - Services 10:00: [id number] cg 00 Social knowledge/s SERGIO: Unknown 2018-07 Alicia Services kill Social 2-30 [place] deficit - Services 13:17: [id number] cg 00 Allergies, Adverse Reactions, Alerts Allergy Allergy Status Severity Reaction(s) Onset Inactive Treating Comments Name Type Date Date Clinician Unknown None Active Unknown None Unknown No Known Allergies For This Patient Medications Ordered Filled Start Stop Current Ordering Indication Dosage Frequency Signature Comments Components Medication Medication Date Date Medication? Clinician (SIG) Name Name furosemide furosemide 2018-07 Yes [place] Unknown Unknown 20 mg 20 mg 2- Gokul SALAZAR tablet tablet thiamine thiamine 2018-07 Yes [place] Unknown Unknown HCl HCl 2-17 Gokul SALAZAR (vitamin (vitamin B1) 100 mg B1) 100 mg tablet tablet atorvastati atorvastati 2018-07 Yes [place] Unknown Unknown n 20 mg n 20 mg 2-17 ,Gokul tablet tablet carvedilol carvedilol 2018-07 Yes [place] Unknown Unknown 25 mg 25 mg 2-17 ,Gokul tablet tablet DILT-XR 120 DILT-XR 120 2018-07 Yes Humza Unknown Unknown mg capsule, mg capsule, 2-17 ,Gokul extended extended release release isosorbide isosorbide 2018-07 Yes [place] Unknown Unknown mononitrate mononitrate 2-17 MD,Gokul ER [...] ,Gokul capsule capsule ondansetron ondansetron 2018-07 Yes [place] Unknown Unknown 4 mg 4 mg 2-17 Gokul SALAZAR disintegrat disintegrat ing tablet ing tablet simethicone simethicone 2018-07 Yes Humza Unknown Unknown 80 mg 80 mg 2-17 MD,Gokul chewable chewable tablet tablet omeprazole omeprazole 2018-07 Yes [place] Unknown Unknown 20 mg 20 mg 2-17 ,Gokul capsule,del capsule,del ayed ayed release release metFORMIN metFORMIN 2018-07 Yes [place] Unknown Unknown 1,000 mg 1,000 mg 2 Gokul SALAZAR tablet tablet levothyroxi levothyroxi 2018-07 Yes [place] Unknown Unknown ne 50 mcg ne 50 mcg 2 Gokul SALAZAR tablet tablet Lactobac. Lactobac. 2018-07 Yes [place] Unknown Unknown acidophilus acidophilus 08-23 Gokul SALAZAR -Bifido. -Bifido. animalis 10 animalis 10 billion billion cell cell chewable chewable tablet tablet folic acid folic acid 2018-07 Yes [place] Unknown Unknown 1 mg tablet 1 mg tablet 2- Gokul SALAZAR magnesium magnesium 2018-07 Yes [place] Unknown Unknown oxide 400 oxide 400 08-23 Gokul SALAZAR mg (241.3 mg (241.3 mg mg magnesium) magnesium) tablet tablet colchicine colchicine 2018-07 Yes Humza Unknown Unknown 0.6 mg 0.6 mg 2 Gokul SALAZAR tablet tablet cholecalcif cholecalcif 2018-07 Yes [place] Unknown Unknown murray murray 08-23 Gokul SALAZAR (vitamin (vitamin D3) 1,000 D3) 1,000 unit unit capsule capsule Tums 200 mg Tums 200 mg 2018-07 Yes Humza Unknown Unknown calcium calcium 08-23 Gokul SALAZAR (500 mg) (500 mg) chewable chewable tablet tablet oxygen oxygen 2018-07 Yes [place] Unknown Unknown 08-23 Gokul SALAZAR acetaminoph acetaminoph 2018-07 Yes Humza Unknown Unknown en 500 mg en 500 mg 08-29 Gokul SALAZAR tablet tablet azithromyci azithromyci 2018-07- Yes [place] Unknown Unknown n 250 mg n 250 mg 09-02 Gokul SALAZAR tablet tablet amoxicillin amoxicillin 2018-07 Yes Humza Unknown Unknown [id number] 09-02 Gokul SALAZAR mg-potassiu mg-potassiu m m clavulanate clavulanate 125 mg 125 mg tablet tablet diphenhydrA diphenhydrA 2018-07 Yes Humza Unknown Unknown MINE 25 mg MINE 25 mg 09-02 Gokul SALAZAR tablet tablet Zithromax Zithromax 2018-07 Yes [place] Unknown Unknown 250 mg 250 mg 09-03 [...]
--- OUTSIDE RECORDS SUMMARY | 2019-07-15 06:39 | XMS REPORT ---
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 [...] Pain Mgmt Active 2018-07 Mary pain 2-17 [place] 12:28: [id number] 00 Respiratory dyspnea Respirator Active 2018-07 Mary present y 08-23 [place] 12:28: [id number] 00 Respiratory oxygen Respirator Active 2018-07 Mary treatments y 08-23 [place] in home 12:28: [id number] 00 Respiratory lung sounds Respirator Active 2018-07 Mary deficit y 08-23 [place] 12:28: [id number] 00 Endo/Carlos diabetic Endo/Carlos Active 2018-07 Mary foot care 08-23 [place] 12:28: [id number] 00 Sensory impaired Sensory Active 2018-07 Mary hearing 08-23 [place] 12:28: [id number] 00 Integument skin Integument Active 2018-07 Mary integrity 08-23 [place] risk 12:28: [id number] 00 Nutrition nutritional Nutrition Active 2018-07 Mary restriction 08-23 [place] s 12:28: [id number] 00 Elimination catheter Eliminatio Active 2018-07 Mary present n 08-23 [place] 12:28: [id number] 00 Elimination ostomy Eliminatio Resolve 2018-072019-06-24 Mary present n d 08-23 14:35:00 [place] 12:28: [id number] 00 Neuro confusion Neuro/Emot Active 2018-07 Mary present ion 08-23 [place] 12:28: [id number] Activity ADL Activity Active 2018-07 Mary assistance 08-23 [place] required 12:28: [id number] 00 Activity self-care Activity Active 2018-07 Mary deficit 08-23 [place] 12:28: [id number] 00 Safety structural Safety Active 2018-07 Mary barriers 08-23 [place] present 12:28: [id number] 00 Safety fall risk Safety Active 2018-07 Mary factor 08-23 [place] present 12:28: [id number] 00 Safety risk for Safety Active 2018-07 Mary hospitaliza 08-23 [place] tion 12:28: [id number] 00 Safety can be left Safety Active 2018-07 Mary alone for 08-23 [place] only short 12:28: [id number] periods 00 Medication oral med Meds Active 2018-07 Mary assistance 08-23 [place] required 12:28: [id number] 00 Medication knowledge/s Meds Active 2018-07 Mary kill 08-23 [place] deficit: pt 12:28: [id number] 00 Medication knowledge/s Meds Active 2018-07 Mary garcia 2-17 [place] deficit: cg 12:28: [id number] 00 Medication potential Meds Active 2018-07 Mary clinically 2-17 [place] significant 12:28: [id number] medication 00 issue Musculoskel transfer Musculoske Active 2018-07 Mary etal assistance letal -17 [place] required 12:28: [id number] 00 Musculoskel requires Musculoske Active 2018-07 Mary etal human letal 2-17 [place] assist to 12:28: [id number] leave home 00 Cardio edema Cardiovasc Active [...] Social 2-27 [place] deficit - Services 10:00: [id number] pt 00 Social knowledge/s SERGIO: Active 2018-07 Nancy Services kill Social 2-27 [place] deficit - Services 10:00: [id number] cg 00 Social knowledge/s SERGIO: Unknown 2018-07 Alicia Services kill Social 2-30 [place] deficit - Services 13:17: [id number] cg 00 Allergies, Adverse Reactions, Alerts Allergy Allergy Status Severity Reaction(s) Onset Inactive Treating Comments Name Type Date Date Clinician Unknown None Active Unknown None Unknown No Known Allergies For This Patient Medications Ordered Filled Start Stop Current Ordering Indication Dosage Frequency Signature Comments Components Medication Medication Date Date Medication? Clinician (SIG) Name Name furosemide furosemide 2018-07 Yes [place] Unknown Unknown 20 mg 20 mg 2- Gokul SALAZAR tablet tablet thiamine thiamine 2018-07 Yes [place] Unknown Unknown HCl HCl 2-17 Gokul SALAZAR (vitamin (vitamin B1) 100 mg B1) 100 mg tablet tablet atorvastati atorvastati 2018-07 Yes [place] Unknown Unknown n 20 mg n 20 mg 2-17 ,Gokul tablet tablet carvedilol carvedilol 2018-07 Yes [place] Unknown Unknown 25 mg 25 mg 2-17 ,Gokul tablet tablet DILT-XR 120 DILT-XR 120 2018-07 Yes Humza Unknown Unknown mg capsule, mg capsule, 2-17 ,Gokul extended extended release release isosorbide isosorbide 2018-07 Yes [place] Unknown Unknown mononitrate mononitrate 2-17 MD,Gokul ER [...] ,Gokul capsule capsule ondansetron ondansetron 2018-07 Yes [place] Unknown Unknown 4 mg 4 mg 2-17 Gokul SALAZAR disintegrat disintegrat ing tablet ing tablet simethicone simethicone 2018-07 Yes Humza Unknown Unknown 80 mg 80 mg 2-17 MD,Gokul chewable chewable tablet tablet omeprazole omeprazole 2018-07 Yes [place] Unknown Unknown 20 mg 20 mg 2-17 ,Gokul capsule,del capsule,del ayed ayed release release metFORMIN metFORMIN 2018-07 Yes [place] Unknown Unknown 1,000 mg 1,000 mg 2 Gokul SALAZAR tablet tablet levothyroxi levothyroxi 2018-07 Yes [place] Unknown Unknown ne 50 mcg ne 50 mcg 2 Gokul SALAZAR tablet tablet Lactobac. Lactobac. 2018-07 Yes [place] Unknown Unknown acidophilus acidophilus 08-23 Gokul SALAZAR -Bifido. -Bifido. animalis 10 animalis 10 billion billion cell cell chewable chewable tablet tablet folic acid folic acid 2018-07 Yes [place] Unknown Unknown 1 mg tablet 1 mg tablet 2- Gokul SALAZAR magnesium magnesium 2018-07 Yes [place] Unknown Unknown oxide 400 oxide 400 08-23 Gokul SALAZAR mg (241.3 mg (241.3 mg mg magnesium) magnesium) tablet tablet colchicine colchicine 2018-07 Yes Humza Unknown Unknown 0.6 mg 0.6 mg 2 Gokul SALAZAR tablet tablet cholecalcif cholecalcif 2018-07 Yes [place] Unknown Unknown murray murray 08-23 Gokul SALAZAR (vitamin (vitamin D3) 1,000 D3) 1,000 unit unit capsule capsule Tums 200 mg Tums 200 mg 2018-07 Yes Humza Unknown Unknown calcium calcium 08-23 Gokul SALAZAR (500 mg) (500 mg) chewable chewable tablet tablet oxygen oxygen 2018-07 Yes [place] Unknown Unknown 08-23 Gokul SALAZAR acetaminoph acetaminoph 2018-07 Yes Humza Unknown Unknown en 500 mg en 500 mg 08-29 Gokul SALAZAR tablet tablet azithromyci azithromyci 2018-07- Yes [place] Unknown Unknown n 250 mg n 250 mg 09-02 Gokul SALAZAR tablet tablet amoxicillin amoxicillin 2018-07 Yes Humza Unknown Unknown [id number] 09-02 Gokul SALAZAR mg-potassiu mg-potassiu m m clavulanate clavulanate 125 mg 125 mg tablet tablet diphenhydrA diphenhydrA 2018-07 Yes Humza Unknown Unknown MINE 25 mg MINE 25 mg 09-02 Gokul SALAZAR tablet tablet Zithromax Zithromax 2018-07 Yes [place] Unknown Unknown 250 mg 250 mg 09-03 [...]
--- OUTSIDE RECORDS SUMMARY | 2019-07-15 06:39 | XMS REPORT ---
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 [...] Mgmt Active 2018-07 Mary pain 2-17 [place] 12:28: [id number] 00 Respiratory dyspnea Respirator Active 2018-07 Mary present y 08-23 [place] 12:28: [id number] 00 Respiratory oxygen Respirator Active 2018-07 Mary treatments y 08-23 [place] in home 12:28: [id number] 00 Respiratory lung sounds Respirator Active 2018-07 Mary deficit y 08-23 [place] 12:28: [id number] 00 Endo/Carlos diabetic Endo/Carlos Active 2018-07 Mary foot care 08-23 [place] 12:28: [id number] 00 Sensory impaired Sensory Active 2018-07 Mary hearing 08-23 [place] 12:28: [id number] 00 Integument skin Integument Active 2018-07 Mary integrity 08-23 [place] risk 12:28: [id number] 00 Nutrition nutritional Nutrition Active 2018-07 Mary restriction 08-23 [place] s 12:28: [id number] 00 Elimination catheter Eliminatio Active 2018-07 Mary present n 08-23 [place] 12:28: [id number] 00 Elimination ostomy Eliminatio Resolve 2018-072019-06-24 Mary present n d 08-23 14:35:00 [place] 12:28: [id number] 00 Neuro confusion Neuro/Emot Active 2018-07 Mary present ion 08-23 [place] 12:28: [id number] 00 Activity ADL Activity Active 2018-07 Mary assistance 08-23 [place] required 12:28: [id number] 00 Activity self-care Activity Active 2018-07 Mary deficit 08-23 [place] 12:28: [id number] 00 Safety structural Safety Active 2018-07 Mary barriers 08-23 [place] present 12:28: [id number] 00 Safety fall risk Safety Active 2018-07 Mary factor 08-23 [place] present 12:28: [id number] 00 Safety risk for Safety Active 2018-07 Mary hospitaliza 08-23 [place] tion 12:28: [id number] 00 Safety can be left Safety Active 2018-07 Mary alone for 08-23 [place] only short 12:28: [id number] periods 00 Medication oral med Meds Active 2018-07 Mary assistance 08-23 [place] required 12:28: [id number] 00 Medication knowledge/s Meds Active 2018-07 Mary kill 08-23 [place] deficit: pt 12:28: [id number] 00 Medication knowledge/s Meds Active 2018-07 Mary garcia -17 [place] deficit: cg 12:28: [id number] 00 Medication potential Meds Active 2018-07 Mary clinically - [place] significant 12:28: [id number] medication 00 issue Musculoskel transfer Musculoske Active 2018-07 Mary etal assistance letal 08-23 [place] required 12:28: [id number] 00 Musculoskel requires Musculoske Active 2018-07 Mary etal human letal 08-23 [place] assist to 12:28: [id number] leave home 00 Cardio edema Cardiovasc Active [...] 00 Integument knowledge/s Integument Active 2018-07 Abigali garcia 2-26 Carrier RN deficit: cg 10:55: [...] (SIG) Name Name furosemide furosemide 2018-07 Yes [place] Unknown Unknown 20 mg 20 mg 2-17 Gokul SALAZAR tablet tablet thiamine thiamine 2018-07 Yes Humza Unknown Unknown HCl HCl 2-17 Gokul SALAZAR (vitamin (vitamin B1) 100 mg B1) 100 mg tablet tablet atorvastati atorvastati 2018-07 Yes [place] Unknown Unknown n 20 mg n 20 mg 2-17 Gokul SALAZAR tablet tablet carvedilol carvedilol 2018-07 Yes Humza Unknown Unknown 25 mg 25 mg 2- Gokul SALAZAR tablet tablet DILT-XR 120 DILT-XR 120 2018-07 Yes Humza Unknown Unknown mg capsule, mg capsule, 2- Gokul SALAZAR extended extended release release isosorbide isosorbide 2018-07 Yes [place] Unknown Unknown mononitrate mononitrate 2- Gokul SALAZAR [...] soln n soln finasteride finasteride 2018-07 Yes [place] Unknown Unknown 5 mg tablet 5 mg tablet 2- Gokul SALAZAR sertraline sertraline 2018-07 Yes [place] Unknown Unknown 100 mg 100 mg 2- ,Gokul tablet tablet tamsulosin tamsulosin 2018-07 Yes [place] Unknown Unknown 0.4 mg 0.4 mg 2 Gokul SALAZAR capsule capsule ondansetron ondansetron 2018-07 Yes [place] Unknown Unknown 4 mg 4 mg 2- [...] ,Gokul tablet tablet Lactobac. Lactobac. 2018-07 Yes [place] Unknown Unknown acidophilus acidophilus 2-17 Gokul SALAZAR -Bifido. -Bifido. animalis 10 animalis 10 billion billion cell cell chewable chewable tablet tablet folic acid folic acid 2018-07 Yes Humza Unknown Unknown 1 mg tablet 1 mg tablet 2 Gokul SALAZAR magnesium magnesium 2018-07 Yes [place] Unknown Unknown oxide 400 oxide 400 2 [...]
--- NOTE | 2019-07-15 07:01 | ED ---
Shortness of Breath - HPI Summary HPI Summary: 74-year-old male with a significant past medical history of chronic hypoxic and hypercapnic respiratory failure, COPD, diastolic congestive heart failure, hypertension, [id number] diabetes mellitus, atrial fibrillation, hypothyroidism presents to the emergency department today in acute respiratory failure. Patient's family states she was fine last night and awoke this morning having considerable shortness of breath. Family denies recent trauma, fever, complaints of chest pain, abdominal pain, rash. Patient is unable to give adequate history at this time. - History of Current Complaint Chief Complaint: EDRespiratoryDistress Time Seen by Provider: 07/15/19 06:36 Hx Obtained From: Family/Local Delivery Truck Driver Onset/Duration: Sudden Onset Current Severity: Severe Dyspnea At: Rest Alleviating Factors: Bronchodilators, EMS Tx, Oxygen, Upright Position Associated Signs & Symptoms: Wheezing - Allergy/Home Medications Allergies/Adverse Reactions: Allergies Allergy/AdvReac Type Severity Reaction Status Date / Time No Known Allergies Allergy Verified 06/04/19 09:17 Home Medications: Home Medications Albuterol HFA INHALER* [Ventolin HFA Inhaler*] 2 puff INH Q4H PRN 07/15/19 [ History Confirmed 07/15/19] Cholecalciferol CAP/TAB(NF) [Vitamin D3 CAP/TAB (NF)] 2,000 unit PO DAILY [History Confirmed 07/15/19] Nystatin CREAM* 1 applic TOPICAL DAILY PRN 07/15/19 [History Confirmed 07/15/19] Simethicone TAB* [Mylicon TAB*] 80 mg PO Q6H PRN 07/15/19 [History Confirmed 03/26] Tamsulosin CAP* [Flomax CAP*] 0.4 mg PO DAILY 07/15/19 [History Confirmed ] PMH/Surg Hx/FS Hx/Imm Hx Endocrine/Hematology History: Reports: Hx Diabetes Denies: Hx Anticoagulant Therapy, Hx Thyroid Disease Cardiovascular History: Reports: Hx Atrial Fibrillation, Hx Hypertension, Other Cardiovascular Problems/Disorders - afib Denies: Hx Pacemaker/ICD Respiratory History: Reports: Hx Asthma, Hx Chronic Obstructive Pulmonary Disease (COPD) - YES 02 DEPENDENT AT HOME, Other Respiratory Problems/Disorders - Agent orange exposure History: Reports: Hx Benign Prostatic Hyperplasia Denies: Hx Renal Disease Musculoskeletal History: Reports: Hx Gout Sensory History: Reports: Hx Contacts or Glasses Denies: Hx Cataracts, Hx Glaucoma, Hx Legally Blind, Hx Deafness, Hx Hearing Aid, Other Sensory Impairments Opthamlomology History: Reports: Hx Contacts or Glasses Denies: Hx Cataracts, Hx Glaucoma, Hx Legally Blind, Other Sensory Impairments Neurological History: Denies: Hx Dementia, Hx Seizures Psychiatric History: Reports: Hx Post Traumatic Stress Disorder - [place] war Denies: Hx Panic Disorder, Hx Substance Abuse - Surgical History Surgery Procedure, Year, and Place: None Hx Anesthesia Reactions: No Infectious Disease History: No Infectious Disease History: Denies: Hx Hepatitis, Hx Human Immunodeficiency Virus (HIV), Traveled Outside the [place] in Last 30 Days - Family History Known Family History: Negative: Diabetes - Social History Alcohol Use: Occasionally Alcohol Amount: 4-5 per day Hx Substance Use: No Substance Use Type: Reports: None Hx Tobacco Use: Yes Smoking Status (MU): Former Smoker Review of Systems Constitutional: Negative Negative: Cough Negative: Rash, Bruising Positive: Anxious All Other Systems Reviewed And Are Negative: Yes Physical Exam - Summary Physical Exam Summary: Patient has evidence of labored breathing with accessory muscle use. Patient speaks in 2 word broken sentences. GCS 15. No evidence of cyanosis. Auscultation reveals diminished lung sounds. Auscultation heart reveals S1 and S2 with an irregular rate and rhythm. Vital Signs On Initial Exam: Initial Vitals Temp Pulse Resp BP Pulse Ox 96.9 F 89 23 162/106 91 07/15/19 06:34 07/15/19 06:34 07/15/19 06:34 07/15/19 06:34 07/15/19 06:34 Appearance: Positive: No Pain Distress, Well-Nourished, Ill-Appearing, Obese Skin: Positive: Warm, Skin Color Reflects Adequate Perfusion Eyes: Positive: EOMI, NANETTE ENT: Positive: Hearing grossly normal Respiratory/Lung Sounds: Positive: Breath Sounds Present, Decreased Breath Sounds, Wheezes Cardiovascular: Positive: RRR, S1, S2 Abdomen Description: Positive: Soft, Distended Bowel Sounds: Positive: Present Musculoskeletal: Positive: Strength/ROM Intact Neurological: Positive: Sensory/Motor Intact, Alert, Oriented to Person Place, Time, Facial Symmetry, Speech Normal Psychiatric: Positive: Affect/Mood Appropriate, Anxious AVPU Assessment: Alert Procedures - Sedation Patient Received Moderate/Deep Sedation with Procedure: No Diagnostics - Vital Signs Vital Signs Temp Pulse Resp BP Pulse Ox 07/15/19 07:00 86 21 100 07/15/19 06:55 104 25 91 07/15/19 06:37 90 23 162/106 90 07/15/19 06:34 96.9 F 89 23 162/106 91 - Laboratory Lab Results: Lab Results 07/15/19 Range/Units 06:40 Patient Temperature Not Reportable ABG pH 7.24 L (7.35-7.45) ABG pH (Temp Correct) Not Reportable ABG pCO2 87 H* (35-45) mmHg ABG pCO2 (Temp Corrct Not Reportable ABG pO2 67 L (80-100) mmHg ABG pO2 (Temp Correct Not Reportable ABG HCO3 29.9 (19-31) mmol/L ABG O2 Saturation 93.1 L (94.0-98.0) % ABG Base Excess 6.6 H (-2.0-2.0) mmol/L Respiration Rate Not Reportable Ventilator Type Not Reportable Vent Mode Not Reportable FiO2 100 Inspiratory Time Not Reportable PEEP Not Reportable Pressure Support Not Reportable Pressure Control Not Reportable EPAP Not Reportable IPAP 10 BiPAP Not Reportable Result Diagrams: 07/15/19 07:23 07/15/19 07:23 Lab Statement: Any lab studies that have been ordered have been reviewed, and results considered in the medical decision making process. Course/Dx - Course Course Of Treatment: Patient was evaluated in the emergency department today for shortness of breath. Patient seen and examined he showed evidence of accessory muscle use and labored breathing. Patient received 1 DuoNeb and 10 mg of Decadron and wrapped the hospital. Upon arrival to hospital patient was placed on BiPAP EKG was done promptly which showed atrial fibrillation at rate of 93 bpm long QTc interval. No evidence of STEMI. Normal axis. No significant changes when compared to prior EKG in 06-06-19. ABG was done which shows pH 7.24 and PCO2 of 87 consistent with respiratory acidosis secondary to acute on chronic hypercarbic hypoxemic respiratory failure. Patient placed on BiPAP for respiratory support. Labs show no leukocytosis with a white blood count of 10.2. There are no significant electrolyte abnormalities however hyperglycemia is noted with a BG of 192 Patient has mild anemia however this is his baseline. BNP is 353 which is not significant for acute congestive heart failure. Urinalysis appears contaminated and pt is asymptomatic for UTI. Initial ABG shows pH 7.24, CO2 87. Repeat ABG 1 hr later shows pH 7.30, PCO2 75. Influenza swab negative. Pt improving with use of BIPAP with decrease in respiritory acidosis. Dr. Pickens, ep technologist, was consulted at 1006 for admisison of the patient for further managment. - Diagnoses Differential Diagnosis/HQI/PQRI: Positive: Airway Obstruction, Airway Foreign Body, Asthma, CHF, COPD Exacerbation, Pneumonia, Pneumothorax Provider Diagnoses: COPD exacerbation - Critical Care Time Critical Care Time: 30-74 min - 30 min Discharge ED - Sign-Out/Discharge Documenting (check all that apply): Patient Departure - Discharge Plan Condition: Stable Disposition: ADMITTED TO [facility] - Billing Disposition and Condition Condition: STABLE Disposition: Admitted to [facility] - Attestation Statements Provider Attestation: I have seen the patient with the AIDEE and agree with the plan and documentation below except as noted: briefly this is a 74-year-old male history of COPD presents with hypercapnic respiratory failure. Placed on BiPAP, given DuoNeb and Decadron. To be admitted to ICU on BiPAP. Rajwinder Mclaughlin MD
[2019-07-15 07:31] LABS: ABS Eosinophils 0.3 10^3/ul (0-0.6); ABS Lymphocytes 0.9 10^3/ul (1.0-4.8); ABS Monocytes 0.5 10^3/ul (0-0.8); ABS Neutrophils 8.4 10^3/ul (1.5-7.7); Eosinophil % 2.6 %; Hematocrit 38 % (42-52); Hemoglobin 12.5 g/dL (14.0-18.0); Lymphocyte % 9.3 %; Mean Corpuscular HGB Conc 33 g/dL (31-36); Mean Corpuscular Hemoglobin 29 pg (27-31); Mean Corpuscular Volume 85 fL (80-94); Mean Platelet Volume 7.6 fL (7.4-10.4); Platelet Count 218 10^3/uL (150-450); Red Cell Distribution Width 14 % (10-15); White Blood Count 10.2 10^3/uL (3.5-10.8)
[2019-07-15 07:49] LABS: ALT 19 U/L (7-52); AST 16 U/L (13-39); Albumin/Globulin Ratio 1.2 (1-3); Alkaline Phosphatase 71 U/L (34-104); Anion Gap 4 mmol/L (2-11); BUN/Creatinine Ratio 14.9 (8-20); Blood Urea Nitrogen 10 mg/dL (6-24); C Reactive Protein 21.01 mg/L (<8.01); CO2 Carbon Dioxide 39 mmol/L (22-32); Chloride 95 mmol/L (101-111); EGFR African American 141.1 (>60); EGFR Non-African American 116.6 (>60); Globulin 3.3 g/dL (2-4); Glucose 192 mg/dL (70-100); Potassium 4.1 mmol/L (3.5-5.0); Sodium 138 mmol/L (135-145); Total Protein 7.3 g/dL (6.4-8.9)
[2019-07-15 07:50] LABS: Troponin I 0.01 ng/mL (<0.03)
[2019-07-15 08:24] LABS: Urine Appearance Turbid; Urine Bilirubin Negative (Negative); Urine Blood 1+ (Negative); Urine Color Yellow; Urine Glucose Negative (Negative); Urine Ketones Negative (Negative); Urine Nitrite Negative (Negative); Urine Protein 2+(100 mg/dL) (Negative); Urine Specific Gravity 1.013 (1.010-1.030); Urine Urobilinogen Negative (Negative)
[2019-07-15 08:33] LABS: Urine Bacteria Absent (Absent); Urine Red Blood Cell 1+(3-5/hpf) (Absent); Urine White Blood Cell 3+(>20/hpf) (Absent)
[2019-07-15 09:15] LABS: Influenza A Molecular NEGATIVE (Negative); Influenza B Molecular NEGATIVE (Negative)
[2019-07-15] MEDS ORDERED: Acetaminophen TAB* 325 MG PO PRN (11:24)
[2019-07-15] MEDS ORDERED: Furosemide IV* 10 MG/ML VIAL (40 MG) IV ONE (11:27)
[2019-07-15] MEDS ORDERED: Azithromycin 500 mg/250 ml NS 500 MG/250 ML BAG IVPB ONE (11:27)
[2019-07-15] MEDS ORDERED: Dextrose 50% VIAL 50 ml IV PUSH PRN (11:49)
[2019-07-15] MEDS ORDERED: Albuterol HFA INHALER* 8 gm MDI INH PRN (11:50)
[2019-07-15] MEDS ORDERED: Simethicone TAB* 80 MG TAB.CHEW PO PRN (11:50)
[2019-07-15 12:13] LABS: % Iron Saturation 13 % (15-55); Iron 48 ug/dL (50-212); Total Iron Binding Capacity 365 mcg/dL (250-450); Transferrin 261 mg/dL (203-362)
[2019-07-15 12:38] LABS: Folate > 20.00 ng/mL (>3.99)
[2019-07-15] MEDS ORDERED: Heparin VIAL(*) 5000 UNITS/ML VIAL (FIVE THOUSAND) SUBCUT SCH (14:00)
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
[2019-07-15] MEDS: methylPREDNISolone 125 MG* 2 ML VIAL IV SCH (14:19)
[2019-07-15] MEDS: hydrALAZINE IV* 20 MG/ML VIAL IV SLOW PU PRN (14:19)
[2019-07-15] MEDS ORDERED: Albuterol/Ipratropium NEB.SOL* Albuterol 2.5 MG/Ipratropium 0.5 MG 3 ML INH SCH (15:00)
[2019-07-15] MEDS: Azithromycin IV(*) 250 MG in NS 0.9% 250 ML* 250 ML IVPB SCH (16:40)
[2019-07-15] MEDS: Insulin LISPRO* 1 UNITS UNIT SUBCUT SCH (17:03)
[2019-07-15] MEDS: Diltiazem CD CAP* 120 MG PO SCH (17:33)
[2019-07-15] MEDS: Mometasone/Formoter 200/5 MDI INH SCH (19:41)
[2019-07-15] MEDS: Albuterol/Ipratropium NEB.SOL* Albuterol 2.5 MG/Ipratropium 0.5 MG 3 ML INH SCH (19:43)
[2019-07-15] MEDS: Carvedilol TAB* 25 MG PO SCH (21:31)
[2019-07-15] MEDS: Melatonin 3 MG TAB PO SCH (21:31)
[2019-07-16] MEDS: methylPREDNISolone 125 MG* 2 ML VIAL IV SCH ×2 (03:20→14:08)
[2019-07-16 05:30] LABS: ABS Lymphocytes 0.7 10^3/ul (1.0-4.8); ABS Monocytes 0.3 10^3/ul (0-0.8); ABS Neutrophils 5.3 10^3/ul (1.5-7.7); Hematocrit 36 % (42-52); Hemoglobin 12.2 g/dL (14.0-18.0); Lymphocyte % 10.9 %; Mean Corpuscular HGB Conc 34 g/dL (31-36); Mean Corpuscular Hemoglobin 28 pg (27-31); Mean Corpuscular Volume 84 fL (80-94); Mean Platelet Volume 8.2 fL (7.4-10.4); Platelet Count 248 10^3/uL (150-450); Red Blood Count 4.31 10^6 /uL (4.18-5.48); Red Cell Distribution Width 14 % (10-15); White Blood Count 6.2 10^3/uL (3.5-10.8)
[2019-07-16 05:35] LABS: EGFR African American 197.8 (>60); EGFR Non-African American 163.5 (>60); Potassium 3.8 mmol/L (3.5-5.0)
[2019-07-16] MEDS: Levothyroxine TAB* 50 MCG TAB PO SCH (06:25)
[2019-07-16] MEDS: SPIRIVA Respimat* (tiotropium) 2.5 mcg/inh Inhaler INH SCH (08:16)
[2019-07-16] MEDS: Albuterol/Ipratropium NEB.SOL* Albuterol 2.5 MG/Ipratropium 0.5 MG 3 ML INH SCH ×2 (08:18→19:59)
[2019-07-16] MEDS: Mometasone/Formoter 200/5 MDI INH SCH ×2 (08:18→19:59)
[2019-07-16] MEDS ORDERED: Folic Acid TAB* 1 MG PO SCH (09:00)
[2019-07-16] MEDS ORDERED: Diltiazem CD CAP* 120 MG PO SCH (09:00)
[2019-07-16] MEDS ORDERED: Furosemide TAB* 40 MG PO SCH (09:00)
[2019-07-16] MEDS: Insulin LISPRO* 1 UNITS UNIT SUBCUT SCH ×3 (09:06→17:37)
[2019-07-16] MEDS: Diltiazem CD CAP* 120 MG PO SCH (09:09)
[2019-07-16] MEDS: Atorvastatin* 10 MG TAB PO SCH (09:09)
[2019-07-16] MEDS: Isosorbide Mononitrate ER TAB* 30 MG PO SCH (09:09)
[2019-07-16] MEDS: Finasteride TAB* 5 MG PO SCH (09:10)
[2019-07-16] MEDS: Pantoprazole TAB * 40 MG TAB PO SCH (09:10)
[2019-07-16] MEDS: Sertraline* 50 MG TAB PO SCH (09:10)
[2019-07-16] MEDS: Thiamine TAB* 100 MG TAB PO SCH (09:10)
[2019-07-16] MEDS: Magnesium Oxide TAB* 400 MG PO SCH (09:11)
[2019-07-16] MEDS: Cholecalciferol TAB* 1000 UNITS PO SCH (09:11)
[2019-07-16] MEDS: Tamsulosin CAP* 0.4 MG PO SCH (09:12)
[2019-07-16] MEDS: Lactobacillus Acidophilus* 1 TAB PO SCH (09:12)
[2019-07-16] MEDS: Carvedilol TAB* 25 MG PO SCH ×2 (09:42→20:00)
[2019-07-16] MEDS: Furosemide IV* 10 MG/ML VIAL (40 MG) IV SLOW PU SCH (10:41)
--- NOTE | 2019-07-16 14:21 | PN ---
Subjective Date of Service: 07/16/19 Interval History: HOSPITALIST PROGRESS NOTE Patient seen and examined at bedside. Care reviewed and d/w Napoleon Marcelino RN. He feels better this AM. States his breathing is much improved, denies chest pain or palpitations. Family History: Unchanged from Admission Social History: Unchanged from Admission Past Medical History: Unchanged from Admission Objective Active Medications: Acetaminophen (Tylenol Tab*) 650 mg PO Q4H PRN PRN Reason: mild to moderate pain Last Admin: 07/15/19 15:23 Dose: 650 mg Albuterol (Ventolin Hfa Inhaler*) 2 puff INH Q4H PRN PRN Reason: SOB/WHEEZING Albuterol/Ipratropium (Duoneb (Albuterol 2.5 Mg/Ipratropium 0.5 Mg)) 1 neb INH BID [facility] Last Admin: 07/16/19 08:18 Dose: 1 neb Atorvastatin Calcium (Lipitor*) 10 mg PO DAILY [facility] Last Admin: 07/16/19 09:09 Dose: 10 mg Carvedilol (Coreg Tab*) 25 mg PO BID [facility] Last Admin: 07/16/19 09:42 Dose: 25 mg Cholecalciferol (Vitamin D Tab*) 2,000 units PO DAILY [facility] Last Admin: 07/16/19 09:11 Dose: 2,000 units Dextrose (Dextrose 50% Vial 50 Ml*) 25 ml IV PUSH .FOR FS < 60 - SS PRN PRN Reason: FS < 60 Diltiazem HCl (Cardizem Cd Cap*) 120 mg PO DAILY [facility] Last Admin: 07/16/19 09:09 Dose: 120 mg Finasteride (Proscar Tab*) 5 mg PO DAILY [facility] Last Admin: 07/16/19 09:10 Dose: 5 mg Folic Acid (Folvite Tab*) 1 mg PO DAILY [facility] Last Admin: 07/16/19 09:12 Dose: 1 mg Furosemide (Lasix Iv*) 40 mg IV SLOW PU DAILY [facility] Last Admin: 07/16/19 10:41 Dose: 40 mg Hydralazine HCl (Apresoline Iv*) 5 mg IV SLOW PU Q6H PRN PRN Reason: SBP > 160 Last Admin: 07/15/19 14:19 Dose: 5 mg Azithromycin 250 mg/ Sodium (Chloride) 250 mls @ 250 mls/hr IVPB Q24H [facility] Stop: 07/19/19 12:59 Last Admin: 07/15/19 16:40 Dose: 250 mls/hr Insulin Human Lispro (Humalog*) 0 units SUBCUT AC [facility]; Protocol Last Admin: 07/16/19 12:41 Dose: 6 units Isosorbide Mononitrate (Imdur Er Tab*) 30 mg PO DAILY [facility] Last Admin: 07/16/19 09:09 Dose: 30 mg Lactobacillus Rhamnosus (Lactobacillus Acidophilus*) 1 tab PO DAILY [facility] Last Admin: 07/16/19 09:12 Dose: 1 tab Levothyroxine Sodium (Synthroid Tab*) 50 mcg PO DAILY@0600 [facility] Last Admin: 07/16/19 06:25 Dose: 50 mcg Magnesium Oxide (Magox 400 Tab*) 800 mg PO DAILY [facility] Last Admin: 07/16/19 09:11 Dose: 800 mg Melatonin (Melatonin) 3 mg PO BEDTIME [facility] Last Admin: 07/15/19 21:31 Dose: 3 mg Methylprednisolone Sodium Succinate (Solu-Medrol 125mg *) 60 mg IV Q12H [facility] Last Admin: 07/16/19 14:08 Dose: 60 mg Mometasone Furoate/Formoterol Fumar (Dulera 200/5 Mdi*) 2 puff INH BID [facility]; Protocol Last Admin: 07/16/19 08:18 Dose: 2 puff Pantoprazole Sodium (Protonix Tab*) 40 mg PO DAILY [facility] Last Admin: 07/16/19 09:10 Dose: 40 mg Sertraline HCl (Zoloft*) 50 mg PO DAILY [facility] Last Admin: 07/16/19 09:10 Dose: 50 mg Simethicone (Mylicon Tab*) 80 mg PO Q6H PRN PRN Reason: gas Tamsulosin HCl (Flomax Cap*) 0.4 mg PO DAILY [facility] Last Admin: 07/16/19 09:12 Dose: 0.4 mg Thiamine HCl (Vitamin B-1 Tab*) 100 mg PO DAILY [facility] Last Admin: 07/16/19 09:10 Dose: 100 mg Tiotropium [place] (Spiriva Respimat 2.5 Mcg) 2 puff INH DAILY [facility] Last Admin: 07/16/19 08:16 Dose: 2 puff Vital Signs - 8 hr 01/10/20 01/10/20 01/10/20 07:00 07:59 08:00 Temperature 97.5 F Pulse Rate 85 83 78 Respiratory 25 17 19 Rate Blood Pressure 133/82 152/97 152/91 (mmHg) O2 Sat by Pulse 96 96 95 Oximetry 07/16/19 07/16/19 07/16/19 08:02 08:20 09:00 Temperature Pulse Rate 87 89 85 Respiratory 20 16 21 Rate Blood Pressure 146/78 (mmHg) O2 Sat by Pulse 96 98 94 Oximetry 07/16/19 07/16/19 07/16/19 10:00 11:00 11:59 Temperature 97 F Pulse Rate 87 84 85 Respiratory 21 14 18 Rate Blood Pressure 152/88 136/79 135/85 (mmHg) O2 Sat by Pulse 95 96 98 Oximetry Oxygen Devices in Use Now: Nasal Cannula Appearance: Elderly obese gentleman sitting up in bed in NAD, watching TV Eyes: No Scleral Icterus Ears/Nose/Mouth/Throat: Mucous Membranes Moist Neck: Trachea Midline Respiratory: Symmetrical Chest Expansion and Respiratory Effort, - - BS+ bilaterally diminished, no added sounds Cardiovascular: RRR - Normal S1 and S2 Abdominal: NL Sounds; No Tenderness; No Distention Neurological: Alert and Oriented x 3, NL Muscle Strength and Tone Result Diagrams: 07/16/19 04:59 07/16/19 04:59 Microbiology and Other Data: Microbiology 07/15/19 08:10 Urine Culture - Preliminary Urine Enterobacter Cloacae 07/15/19 19:11 Nasal Screen MRSA (PCR) - Final Nasal Mrsa Not Detected Assess/Plan/Problems-Billing Assessment: Mr Stone is a 74yo M with PMH of chronic hypoxic/hypercapnic respiratory failure, COPD, HFpEF, type 2 DM, HTN, HLD, Afib not on AC, hypothyroidism, GERD , depression, BPH, who presented to ED with dyspnea, found to have acute on chronic hypercapnic respiratory failure secondary to COPD exacerbation and BiPAP non compliance. - Patient Problems (1) Acute hypercapnic respiratory failure Comment: - Secondary to COPD exacerbation and BiPAP non compliance. - Improved. - This is his 4th admission since end of April. - Lengthy conversation about indication and importance of BiPAP for his condition, but he is adamant he cannot tolerate it. We talked about different masks that would not trigger claustrophobia, including nasal pillows, but he is not interested. (2) COPD exacerbation Comment: - Secondary to bronchitis. - Continue Azithromycin, steroids, and bronchodilators. (3) UTI (urinary tract infection) Comment: - Present on admission, not Bacon catheter related. - Urine culture growing Enterobacter - add Ceftriaxone and follow sensitivities. (4) DM2 (diabetes mellitus, type 2) Comment: - Continue Lispro SS. (5) DVT prophylaxis Comment: - SQ heparin. (6) Full code status Status and Disposition: Inpatient. Transfer to telemetry floor.
[2019-07-16] MEDS: Azithromycin IV(*) 250 MG in NS 0.9% 250 ML* 250 ML IVPB SCH (14:23)
[2019-07-16] MEDS: cefTRIAXone(*) 1 GM in NS 0.9% 50 ML* 50 ML IVPB SCH (16:49)
[2019-07-16] MEDS: Melatonin 3 MG TAB PO SCH (20:00)
[2019-07-16] MEDS ORDERED: Thiamine INJ* 100 MG/ML 2 ML VIAL IM ONE (23:00)
[2019-07-16] MEDS ORDERED: LORazepam INJ* 2 MG/ML 1 ML VIAL IV PUSH SCH (23:00)
[2019-07-16] MEDS ORDERED: Lorazepam PYXIS KEY ONE ×2 (23:13→23:26)
[2019-07-17] MEDS: methylPREDNISolone 125 MG* 2 ML VIAL IV SCH ×2 (03:51→14:42)
[2019-07-17] MEDS: Levothyroxine TAB* 50 MCG TAB PO SCH (06:13)
[2019-07-17] MEDS: Mometasone/Formoter 200/5 MDI INH SCH ×2 (07:49→19:28)
[2019-07-17] MEDS: Albuterol/Ipratropium NEB.SOL* Albuterol 2.5 MG/Ipratropium 0.5 MG 3 ML INH SCH ×2 (07:49→19:28)
[2019-07-17] MEDS: SPIRIVA Respimat* (tiotropium) 2.5 mcg/inh Inhaler INH SCH (07:50)
[2019-07-17] MEDS: Insulin LISPRO* 1 UNITS UNIT SUBCUT SCH ×3 (08:24→17:48)
[2019-07-17] MEDS: Furosemide IV* 10 MG/ML VIAL (40 MG) IV SLOW PU SCH (08:24)
[2019-07-17] MEDS: Thiamine TAB* 100 MG TAB PO SCH (08:25)
[2019-07-17] MEDS: Cholecalciferol TAB* 1000 UNITS PO SCH (08:25)
[2019-07-17] MEDS: Lactobacillus Acidophilus* 1 TAB PO SCH (08:25)
[2019-07-17] MEDS: Magnesium Oxide TAB* 400 MG PO SCH (08:25)
[2019-07-17] MEDS: Isosorbide Mononitrate ER TAB* 30 MG PO SCH (08:25)
[2019-07-17] MEDS: Pantoprazole TAB * 40 MG TAB PO SCH (08:25)
[2019-07-17] MEDS: Finasteride TAB* 5 MG PO SCH (08:25)
[2019-07-17] MEDS: Atorvastatin* 10 MG TAB PO SCH (08:25)
[2019-07-17] MEDS: Carvedilol TAB* 25 MG PO SCH ×2 (08:25→21:13)
[2019-07-17] MEDS: Tamsulosin CAP* 0.4 MG PO SCH (08:25)
[2019-07-17] MEDS: Multivitamins/Minerals TAB PO SCH (08:25)
[2019-07-17] MEDS: Diltiazem CD CAP* 120 MG PO SCH (08:25)
[2019-07-17] MEDS: Sertraline* 50 MG TAB PO SCH (08:25)
[2019-07-17] MEDS: Folic Acid TAB* 1 MG PO SCH (08:25)
[2019-07-17 09:44] LABS: BUN/Creatinine Ratio 26.8 (8-20); Calcium 9.3 mg/dL (8.6-10.3); EGFR African American 173.5 (>60); EGFR Non-African American 143.4 (>60); Potassium 3.5 mmol/L (3.5-5.0)
[2019-07-17] MEDS: acetaZOLAMIDE TAB* 250 MG PO SCH ×2 (11:23→21:14)
[2019-07-17] MEDS: Azithromycin IV(*) 250 MG in NS 0.9% 250 ML* 250 ML IVPB SCH (11:27)
--- NOTE | 2019-07-17 14:36 | PN ---
Subjective Date of Service: 07/17/19 Interval History: HOSPITALIST PROGRESS NOTE Patient seen and examined at bedside. Care reviewed and d/w Florentin Mark RN. He offers no new complaints, feels tired. Willing to try BIPAP again after talking to his sister. Family History: Unchanged from Admission Social History: Unchanged from Admission Past Medical History: Unchanged from Admission Objective Active Medications: Acetaminophen (Tylenol Tab*) 650 mg PO Q4H PRN PRN Reason: mild to moderate pain Last Admin: 07/15/19 15:23 Dose: 650 mg Acetazolamide (Diamox Tab*) 250 mg PO BID [facility] Stop: 07/17/19 21:01 Last Admin: 07/17/19 11:23 Dose: 250 mg Albuterol (Ventolin Hfa Inhaler*) 2 puff INH Q4H PRN PRN Reason: SOB/WHEEZING Albuterol/Ipratropium (Duoneb (Albuterol 2.5 Mg/Ipratropium 0.5 Mg)) 1 neb INH BID [facility] Last Admin: 07/17/19 07:49 Dose: 1 neb Atorvastatin Calcium (Lipitor*) 10 mg PO DAILY [facility] Last Admin: 07/17/19 08:25 Dose: 10 mg Carvedilol (Coreg Tab*) 25 mg PO BID [facility] Last Admin: 07/17/19 08:25 Dose: 25 mg Cholecalciferol (Vitamin D Tab*) 2,000 units PO DAILY [facility] Last Admin: 07/17/19 08:25 Dose: 2,000 units Dextrose (Dextrose 50% Vial 50 Ml*) 25 ml IV PUSH .FOR FS < 60 - SS PRN PRN Reason: FS < 60 Diltiazem HCl (Cardizem Cd Cap*) 120 mg PO DAILY [facility] Last Admin: 07/17/19 08:25 Dose: 120 mg Finasteride (Proscar Tab*) 5 mg PO DAILY [facility] Last Admin: 07/17/19 08:25 Dose: 5 mg Folic Acid (Folvite Tab*) 1 mg PO DAILY [facility] Last Admin: 07/17/19 08:25 Dose: 1 mg Furosemide (Lasix Iv*) 40 mg IV SLOW PU DAILY [facility] Last Admin: 07/17/19 08:24 Dose: 40 mg Hydralazine HCl (Apresoline Iv*) 5 mg IV SLOW PU Q6H PRN PRN Reason: SBP > 160 Last Admin: 07/15/19 14:19 Dose: 5 mg Azithromycin 250 mg/ Sodium (Chloride) 250 mls @ 250 mls/hr IVPB Q24H [facility] Stop: 07/19/19 12:59 Last Admin: 07/17/19 11:27 Dose: 250 mls/hr Ceftriaxone Sodium 1 gm/ (Sodium Chloride) 50 mls @ 100 mls/hr IVPB Q24H [facility] Last Admin: 07/16/19 16:49 Dose: 100 mls/hr Insulin Human Lispro (Humalog*) 0 units SUBCUT AC [facility]; Protocol Last Admin: 07/17/19 11:54 Dose: 9 units Isosorbide Mononitrate (Imdur Er Tab*) 30 mg PO DAILY [facility] Last Admin: 07/17/19 08:25 Dose: 30 mg Lactobacillus Rhamnosus (Lactobacillus Acidophilus*) 1 tab PO DAILY [facility] Last Admin: 07/17/19 08:25 Dose: 1 tab Levothyroxine Sodium (Synthroid Tab*) 50 mcg PO DAILY@0600 [facility] Last Admin: 07/17/19 06:13 Dose: 50 mcg Magnesium Oxide (Magox 400 Tab*) 800 mg PO DAILY [facility] Last Admin: 07/17/19 08:25 Dose: 800 mg Melatonin (Melatonin) 3 mg PO BEDTIME [facility] Last Admin: 07/16/19 20:00 Dose: 3 mg Methylprednisolone Sodium Succinate (Solu-Medrol 125mg *) 60 mg IV Q12H [facility] Last Admin: 07/17/19 03:51 Dose: 60 mg Mometasone Furoate/Formoterol Fumar (Dulera 200/5 Mdi*) 2 puff INH BID [facility]; Protocol Last Admin: 07/17/19 07:49 Dose: 2 puff Multivitamins/Minerals (Theragran/Minerals Tab*) 1 tab PO DAILY [facility] Last Admin: 07/17/19 08:25 Dose: 1 tab Pantoprazole Sodium (Protonix Tab*) 40 mg PO DAILY [facility] Last Admin: 07/17/19 08:25 Dose: 40 mg Sertraline HCl (Zoloft*) 50 mg PO DAILY [facility] Last Admin: 07/17/19 08:25 Dose: 50 mg Simethicone (Mylicon Tab*) 80 mg PO Q6H PRN PRN Reason: gas Tamsulosin HCl (Flomax Cap*) 0.4 mg PO DAILY [facility] Last Admin: 07/17/19 08:25 Dose: 0.4 mg Thiamine HCl (Vitamin B-1 Tab*) 100 mg PO DAILY [facility] Last Admin: 07/17/19 08:25 Dose: 100 mg Tiotropium [place] (Spiriva Respimat 2.5 Mcg) 2 puff INH DAILY [facility] Last Admin: 07/17/19 07:50 Dose: 2 puff Vital Signs - 8 hr 07/17/19 07/17/19 07/17/19 07:35 07:52 08:38 Temperature 97.4 F Pulse Rate 93 Respiratory 20 16 20 Rate Blood Pressure 149/96 (mmHg) O2 Sat by Pulse 97 Oximetry 07/17/19 07/17/19 09:13 11:47 Temperature 97.5 F 97.3 F Pulse Rate 104 93 Respiratory 20 20 Rate Blood Pressure 136/79 128/73 (mmHg) O2 Sat by Pulse 92 97 Oximetry Oxygen Devices in Use Now: Nasal Cannula Appearance: Elderly obese gentleman sitting up in bed in NAD Eyes: No Scleral Icterus Ears/Nose/Mouth/Throat: Mucous Membranes Moist Neck: Trachea Midline Respiratory: Symmetrical Chest Expansion and Respiratory Effort, Clear to Auscultation Cardiovascular: RRR - Normal S1 and S2 Abdominal: NL Sounds; No Tenderness; No Distention Neurological: Alert and Oriented x 3, NL Muscle Strength and Tone Result Diagrams: 07/16/19 04:59 07/17/19 09:20 Microbiology and Other Data: Microbiology 07/15/19 08:10 Urine Culture - Preliminary Urine Enterobacter Cloacae 07/15/19 19:11 Nasal Screen MRSA (PCR) - Final Nasal Mrsa Not Detected Assess/Plan/Problems-Billing Assessment: Mr Stone is a 74yo M with PMH of chronic hypoxic/hypercapnic respiratory failure, COPD, HFpEF, type 2 DM, HTN, HLD, Afib not on AC, hypothyroidism, GERD , depression, BPH, who presented to ED with dyspnea, found to have acute on chronic hypercapnic respiratory failure secondary to COPD exacerbation and BiPAP non compliance. - Patient Problems (1) Acute hypercapnic respiratory failure Comment: - Secondary to COPD exacerbation and BiPAP non compliance. - Improved. - This is his 4th admission since end april. - Lengthy conversation about indication and importance of BiPAP for his condition, but he was adamant he cannot tolerate it. After he talked to his sister, he is willing to try again. - Will give Acetazolamide to lower CO2 and give him a buffer if he doesn't wear BIPAP. (2) COPD exacerbation Comment: - Secondary to bronchitis. - Continue Azithromycin, steroids, and bronchodilators. (3) UTI (urinary tract infection) Comment: - Present on admission, not Bacon catheter related. - Urine culture growing Enterobacter sensitive to Ceftriaxone. (4) DM2 (diabetes mellitus, type 2) Comment: - Uncontrolledin the setting of steroid use. - Add low dose Lantus and continue Lispro SS. (5) DVT prophylaxis Comment: - SQ heparin. (6) Full code status Status and Disposition: Inpatient. Transfer to telemetry floor.
[2019-07-17] MEDS: cefTRIAXone(*) 1 GM in NS 0.9% 50 ML* 50 ML IVPB SCH (14:42)
[2019-07-17] MEDS: Potassium Chlor TAB* 20 MEQ TAB.ER PO SCH (15:14)
[2019-07-17] MEDS: Melatonin 3 MG TAB PO SCH (21:13)
[2019-07-17] MEDS: Insulin GLARGINE(*) 1 UNITS UNIT SUBCUT SCH (21:13)
[2019-07-18] MEDS: methylPREDNISolone 125 MG* 2 ML VIAL IV SCH ×2 (02:53→14:23)
[2019-07-18] MEDS: Levothyroxine TAB* 50 MCG TAB PO SCH (06:04)
[2019-07-18] MEDS: Albuterol/Ipratropium NEB.SOL* Albuterol 2.5 MG/Ipratropium 0.5 MG 3 ML INH SCH ×3 (06:56→22:37)
[2019-07-18] MEDS: Mometasone/Formoter 200/5 MDI INH SCH ×2 (06:57→07:06)
[2019-07-18] MEDS: SPIRIVA Respimat* (tiotropium) 2.5 mcg/inh Inhaler INH SCH ×2 (07:00→07:06)
[2019-07-18 08:09] LABS: Calcium 9.3 mg/dL (8.6-10.3); Potassium 3.5 mmol/L (3.5-5.0)
[2019-07-18] MEDS: Insulin LISPRO* 1 UNITS UNIT SUBCUT SCH ×3 (08:10→16:33)
[2019-07-18] MEDS: Tamsulosin CAP* 0.4 MG PO SCH (08:11)
[2019-07-18] MEDS: Sertraline* 50 MG TAB PO SCH (08:11)
[2019-07-18] MEDS: Furosemide IV* 10 MG/ML VIAL (40 MG) IV SLOW PU SCH (08:11)
[2019-07-18] MEDS: Pantoprazole TAB * 40 MG TAB PO SCH (08:11)
[2019-07-18] MEDS: Thiamine TAB* 100 MG TAB PO SCH (08:11)
[2019-07-18] MEDS: Carvedilol TAB* 25 MG PO SCH ×2 (08:11→21:21)
[2019-07-18] MEDS: Folic Acid TAB* 1 MG PO SCH (08:12)
[2019-07-18] MEDS: Isosorbide Mononitrate ER TAB* 30 MG PO SCH (08:12)
[2019-07-18] MEDS: Diltiazem CD CAP* 120 MG PO SCH (08:12)
[2019-07-18] MEDS: Atorvastatin* 10 MG TAB PO SCH (08:12)
[2019-07-18] MEDS: Magnesium Oxide TAB* 400 MG PO SCH (08:12)
[2019-07-18] MEDS: Cholecalciferol TAB* 1000 UNITS PO SCH (08:12)
[2019-07-18] MEDS: Finasteride TAB* 5 MG PO SCH (08:12)
[2019-07-18 08:27] LABS: BUN/Creatinine Ratio 31.7 (8-20); EGFR African American 160.2 (>60); EGFR Non-African American 132.4 (>60)
[2019-07-18] MEDS: Potassium Chlor TAB* 20 MEQ TAB.ER PO SCH (10:20)
[2019-07-18] MEDS: Multivitamins/Minerals TAB PO SCH (10:20)
[2019-07-18] MEDS: Lactobacillus Acidophilus* 1 TAB PO SCH (10:20)
[2019-07-18] MEDS: Azithromycin IV(*) 250 MG in NS 0.9% 250 ML* 250 ML IVPB SCH (12:06)
--- NOTE | 2019-07-18 13:49 | PN ---
Subjective Date of Service: 07/18/19 Interval History: HOSPITALIST PROGRESS NOTE Patient seen and examined at bedside. Care reviewed and d/w Florentin Jackson RN. He offers no new complaints today. Tried BIPAP last night from -, but states it is "uncomfortable, but I'm going to use it". Family History: Unchanged from Admission Social History: Unchanged from Admission Past Medical History: Unchanged from Admission Objective Active Medications: Acetaminophen (Tylenol Tab*) 650 mg PO Q4H PRN PRN Reason: mild to moderate pain Last Admin: 07/15/19 15:23 Dose: 650 mg Albuterol (Ventolin Hfa Inhaler*) 2 puff INH Q4H PRN PRN Reason: SOB/WHEEZING Albuterol/Ipratropium (Duoneb (Albuterol 2.5 Mg/Ipratropium 0.5 Mg)) 1 neb INH BID [facility] Last Admin: 07/18/19 07:05 Dose: Not Given Atorvastatin Calcium (Lipitor*) 10 mg PO DAILY [facility] Last Admin: 07/18/19 08:12 Dose: 10 mg Carvedilol (Coreg Tab*) 25 mg PO BID [facility] Last Admin: 07/18/19 08:11 Dose: 25 mg Cholecalciferol (Vitamin D Tab*) 2,000 units PO DAILY [facility] Last Admin: 07/18/19 08:12 Dose: 2,000 units Dextrose (Dextrose 50% Vial 50 Ml*) 25 ml IV PUSH .FOR FS < 60 - SS PRN PRN Reason: FS < 60 Diltiazem HCl (Cardizem Cd Cap*) 120 mg PO DAILY [facility] Last Admin: 07/18/19 08:12 Dose: 120 mg Finasteride (Proscar Tab*) 5 mg PO DAILY [facility] Last Admin: 07/18/19 08:12 Dose: 5 mg Folic Acid (Folvite Tab*) 1 mg PO DAILY [facility] Last Admin: 07/18/19 08:12 Dose: 1 mg Furosemide (Lasix Iv*) 40 mg IV SLOW PU DAILY [facility] Last Admin: 07/18/19 08:11 Dose: 40 mg Hydralazine HCl (Apresoline Iv*) 5 mg IV SLOW PU Q6H PRN PRN Reason: SBP > 160 Last Admin: 07/15/19 14:19 Dose: 5 mg Azithromycin 250 mg/ Sodium (Chloride) 250 mls @ 250 mls/hr IVPB Q24H [facility] Stop: 07/19/19 12:59 Last Admin: 07/18/19 12:06 Dose: 250 mls/hr Ceftriaxone Sodium 1 gm/ (Sodium Chloride) 50 mls @ 100 mls/hr IVPB Q24H [facility] Last Admin: 07/17/19 14:42 Dose: 100 mls/hr Insulin Glargine (Lantus(*)) 10 units SUBCUT BEDTIME [facility] Last Admin: 07/17/19 21:13 Dose: 10 units Insulin Human Lispro (Humalog*) 0 units SUBCUT AC [facility]; Protocol Last Admin: 07/18/19 12:05 Dose: 6 units Isosorbide Mononitrate (Imdur Er Tab*) 30 mg PO DAILY [facility] Last Admin: 07/18/19 08:12 Dose: 30 mg Lactobacillus Rhamnosus (Lactobacillus Acidophilus*) 1 tab PO DAILY [facility] Last Admin: 07/18/19 10:20 Dose: 1 tab Levothyroxine Sodium (Synthroid Tab*) 50 mcg PO DAILY@0600 [facility] Last Admin: 07/18/19 06:04 Dose: 50 mcg Magnesium Oxide (Magox 400 Tab*) 800 mg PO DAILY [facility] Last Admin: 07/18/19 08:12 Dose: 800 mg Melatonin (Melatonin) 3 mg PO BEDTIME [facility] Last Admin: 07/17/19 21:13 Dose: 3 mg Methylprednisolone Sodium Succinate (Solu-Medrol 125mg *) 60 mg IV Q12H [facility] Last Admin: 07/18/19 02:53 Dose: 60 mg Mometasone Furoate/Formoterol Fumar (Dulera 200/5 Mdi*) 2 puff INH BID [facility]; Protocol Last Admin: 07/18/19 07:06 Dose: Not Given Multivitamins/Minerals (Theragran/Minerals Tab*) 1 tab PO DAILY [facility] Last Admin: 07/18/19 10:20 Dose: 1 tab Pantoprazole Sodium (Protonix Tab*) 40 mg PO DAILY [facility] Last Admin: 07/18/19 08:11 Dose: 40 mg Potassium Chloride (Klor Con Er Tab*) 40 meq PO DAILY [facility] Last Admin: 07/18/19 10:20 Dose: 40 meq Sertraline HCl (Zoloft*) 50 mg PO DAILY [facility] Last Admin: 07/18/19 08:11 Dose: 50 mg Simethicone (Mylicon Tab*) 80 mg PO Q6H PRN PRN Reason: gas Tamsulosin HCl (Flomax Cap*) 0.4 mg PO DAILY [facility] Last Admin: 07/18/19 08:11 Dose: 0.4 mg Thiamine HCl (Vitamin B-1 Tab*) 100 mg PO DAILY [facility] Last Admin: 07/18/19 08:11 Dose: 100 mg Tiotropium [place] (Spiriva Respimat 2.5 Mcg) 2 puff INH DAILY [facility] Last Admin: 07/18/19 07:06 Dose: Not Given Vital Signs - 8 hr 07/18/19 07/18/19 07/18/19 07:01 07:46 07:51 Temperature 97.8 F Pulse Rate 100 94 Respiratory 16 20 20 Rate Blood Pressure 150/88 (mmHg) O2 Sat by Pulse 97 Oximetry 07/18/19 11:24 Temperature 97.7 F Pulse Rate 95 Respiratory 20 Rate Blood Pressure 142/89 (mmHg) O2 Sat by Pulse 91 Oximetry Oxygen Devices in Use Now: Nasal Cannula Appearance: Elderly obese gentleman sitting up in a chair in NAD Eyes: No Scleral Icterus Ears/Nose/Mouth/Throat: Mucous Membranes Moist Neck: Trachea Midline Respiratory: Symmetrical Chest Expansion and Respiratory Effort, Clear to Auscultation Cardiovascular: RRR - Normal S1 and S2 Abdominal: NL Sounds; No Tenderness; No Distention - obese Neurological: Alert and Oriented x 3, NL Muscle Strength and Tone Result Diagrams: 07/16/19 04:59 07/18/19 07:50 Microbiology and Other Data: Microbiology 07/15/19 08:10 Urine Culture - Preliminary Urine Enterobacter Cloacae 07/15/19 19:11 Nasal Screen MRSA (PCR) - Final Nasal Mrsa Not Detected Assess/Plan/Problems-Billing Assessment: Mr Stone is a 74yo M with PMH of chronic hypoxic/hypercapnic respiratory failure, COPD, HFpEF, type 2 DM, HTN, HLD, Afib not on AC, hypothyroidism, GERD , depression, BPH, who presented to ED with dyspnea, found to have acute on chronic hypercapnic respiratory failure secondary to COPD exacerbation and BiPAP non compliance. - Patient Problems (1) Acute hypercapnic respiratory failure Comment: - Secondary to COPD exacerbation. - Improved. - This is his 4th admission since end april. - Lengthy conversation about indication and importance of BiPAP for his condition, but he was adamant he cannot tolerate it. After he talked to his sister, he is willing to try again. - Received Acetazolamide x 2 and bicarb is down to 31. Patient understands if he doesn't wear BIPAP, his CO2 will go up again. (2) COPD exacerbation Comment: - Secondary to bronchitis. - Continue Azithromycin, steroids, and bronchodilators. (3) UTI (urinary tract infection) Comment: - Present on admission, not Bacon catheter related. - Urine culture growing Enterobacter sensitive to Ceftriaxone. (4) DM2 (diabetes mellitus, type 2) Comment: - Uncontrolled in the setting of steroid use. - Continue Lantus and Lispro SS. (5) DVT prophylaxis Comment: - SQ heparin. (6) Full code status Status and Disposition: Inpatient.
[2019-07-18] MEDS: cefTRIAXone(*) 1 GM in NS 0.9% 50 ML* 50 ML IVPB SCH (14:23)
[2019-07-18] MEDS: Melatonin 3 MG TAB PO SCH (21:21)
[2019-07-18] MEDS: Insulin GLARGINE(*) 1 UNITS UNIT SUBCUT SCH (21:21)
[2019-07-19] MEDS: methylPREDNISolone 125 MG* 2 ML VIAL IV SCH (02:38)
[2019-07-19] MEDS: Levothyroxine TAB* 50 MCG TAB PO SCH (05:27)
[2019-07-19] MEDS: Mometasone/Formoter 200/5 MDI INH SCH ×3 (06:56→19:21)
[2019-07-19] MEDS: Albuterol/Ipratropium NEB.SOL* Albuterol 2.5 MG/Ipratropium 0.5 MG 3 ML INH SCH ×2 (08:31→19:16)
[2019-07-19] MEDS: SPIRIVA Respimat* (tiotropium) 2.5 mcg/inh Inhaler INH SCH (08:34)
[2019-07-19] MEDS: Furosemide IV* 10 MG/ML VIAL (40 MG) IV SLOW PU SCH (09:04)
[2019-07-19] MEDS: Insulin LISPRO* 1 UNITS UNIT SUBCUT SCH ×3 (09:04→17:29)
[2019-07-19] MEDS: Pantoprazole TAB * 40 MG TAB PO SCH (09:05)
[2019-07-19] MEDS: Atorvastatin* 10 MG TAB PO SCH (09:05)
[2019-07-19] MEDS: Finasteride TAB* 5 MG PO SCH (09:05)
[2019-07-19] MEDS: Magnesium Oxide TAB* 400 MG PO SCH (09:05)
[2019-07-19] MEDS: Folic Acid TAB* 1 MG PO SCH (09:05)
[2019-07-19] MEDS: Multivitamins/Minerals TAB PO SCH (09:05)
[2019-07-19] MEDS: Isosorbide Mononitrate ER TAB* 30 MG PO SCH (09:05)
[2019-07-19] MEDS: Thiamine TAB* 100 MG TAB PO SCH (09:05)
[2019-07-19] MEDS: Potassium Chlor TAB* 20 MEQ TAB.ER PO SCH (09:05)
[2019-07-19] MEDS: Lactobacillus Acidophilus* 1 TAB PO SCH (09:05)
[2019-07-19] MEDS: Cholecalciferol TAB* 1000 UNITS PO SCH (09:05)
[2019-07-19] MEDS: Carvedilol TAB* 25 MG PO SCH ×2 (09:05→21:44)
[2019-07-19] MEDS: Tamsulosin CAP* 0.4 MG PO SCH (09:05)
[2019-07-19] MEDS: Diltiazem CD CAP* 120 MG PO SCH (09:05)
[2019-07-19] MEDS: Sertraline* 50 MG TAB PO SCH (09:06)
[2019-07-19] MEDS ORDERED: Azithromycin TAB* 250 MG PO ONE (11:28)
--- NOTE | 2019-07-19 11:32 | PN ---
Subjective Date of Service: 07/19/19 Interval History: Mr. Stone states that he wore his BiPAP all night last night without too much difficulty; he states that he is able to tolerate the face mask and is more amenable to use at home. Currently waiting for arrangements for home delivery of BiPAP prior to d/c. Mr. Stone states that he has no SOB, cough, fever today. He has had a Bacon in place for "a while" and follows with a urologist at the [place] clinic. He has been up to [place] with walker. He has no other complaints today, but is eager for discharge. Family History: Unchanged from Admission Social History: Unchanged from Admission Past Medical History: Unchanged from Admission Objective Active Medications: Acetaminophen (Tylenol Tab*) 650 mg PO Q4H PRN PRN Reason: mild to moderate pain Last Admin: 07/15/19 15:23 Dose: 650 mg Albuterol (Ventolin Hfa Inhaler*) 2 puff INH Q4H PRN PRN Reason: SOB/WHEEZING Albuterol/Ipratropium (Duoneb (Albuterol 2.5 Mg/Ipratropium 0.5 Mg)) 1 neb INH BID [facility] Last Admin: 07/19/19 08:31 Dose: 1 neb Atorvastatin Calcium (Lipitor*) 10 mg PO DAILY [facility] Last Admin: 07/19/19 09:05 Dose: 10 mg Carvedilol (Coreg Tab*) 25 mg PO BID [facility] Last Admin: 07/19/19 09:05 Dose: 25 mg Cholecalciferol (Vitamin D Tab*) 2,000 units PO DAILY [facility] Last Admin: 07/19/19 09:05 Dose: 2,000 units Dextrose (Dextrose 50% Vial 50 Ml*) 25 ml IV PUSH .FOR FS < 60 - SS PRN PRN Reason: FS < 60 Diltiazem HCl (Cardizem Cd Cap*) 120 mg PO DAILY [facility] Last Admin: 07/19/19 09:05 Dose: 120 mg Finasteride (Proscar Tab*) 5 mg PO DAILY [facility] Last Admin: 07/19/19 09:05 Dose: 5 mg Folic Acid (Folvite Tab*) 1 mg PO DAILY [facility] Last Admin: 07/19/19 09:05 Dose: 1 mg Furosemide (Lasix Iv*) 40 mg IV SLOW PU DAILY [facility] Last Admin: 07/19/19 09:04 Dose: 40 mg Hydralazine HCl (Apresoline Iv*) 5 mg IV SLOW PU Q6H PRN PRN Reason: SBP > 160 Last Admin: 07/15/19 14:19 Dose: 5 mg Azithromycin 250 mg/ Sodium (Chloride) 250 mls @ 250 mls/hr IVPB Q24H [facility] Stop: 07/19/19 12:59 Last Admin: 07/18/19 12:06 Dose: 250 mls/hr Ceftriaxone Sodium 1 gm/ (Sodium Chloride) 50 mls @ 100 mls/hr IVPB Q24H [facility] Last Admin: 07/18/19 14:23 Dose: 100 mls/hr Insulin Glargine (Lantus(*)) 10 units SUBCUT BEDTIME [facility] Last Admin: 07/18/19 21:21 Dose: 10 units Insulin Human Lispro (Humalog*) 0 units SUBCUT AC [facility]; Protocol Last Admin: 07/19/19 09:04 Dose: 6 units Isosorbide Mononitrate (Imdur Er Tab*) 30 mg PO DAILY [facility] Last Admin: 07/19/19 09:05 Dose: 30 mg Lactobacillus Rhamnosus (Lactobacillus Acidophilus*) 1 tab PO DAILY [facility] Last Admin: 07/19/19 09:05 Dose: 1 tab Levothyroxine Sodium (Synthroid Tab*) 50 mcg PO DAILY@0600 [facility] Last Admin: 07/19/19 05:27 Dose: 50 mcg Magnesium Oxide (Magox 400 Tab*) 800 mg PO DAILY [facility] Last Admin: 07/19/19 09:05 Dose: 800 mg Melatonin (Melatonin) 3 mg PO BEDTIME [facility] Last Admin: 07/18/19 21:21 Dose: 3 mg Methylprednisolone Sodium Succinate (Solu-Medrol 125mg *) 60 mg IV Q12H [facility] Last Admin: 07/19/19 02:38 Dose: 60 mg Mometasone Furoate/Formoterol Fumar (Dulera 200/5 Mdi*) 2 puff INH BID [facility]; Protocol Last Admin: 07/19/19 08:33 Dose: 2 puff Multivitamins/Minerals (Theragran/Minerals Tab*) 1 tab PO DAILY [facility] Last Admin: 07/19/19 09:05 Dose: 1 tab Pantoprazole Sodium (Protonix Tab*) 40 mg PO DAILY [facility] Last Admin: 07/19/19 09:05 Dose: 40 mg Potassium Chloride (Klor Con Er Tab*) 40 meq PO DAILY [facility] Last Admin: 07/19/19 09:05 Dose: 40 meq Sertraline HCl (Zoloft*) 50 mg PO DAILY [facility] Last Admin: 07/19/19 09:06 Dose: 50 mg Simethicone (Mylicon Tab*) 80 mg PO Q6H PRN PRN Reason: gas Tamsulosin HCl (Flomax Cap*) 0.4 mg PO DAILY [facility] Last Admin: 07/19/19 09:05 Dose: 0.4 mg Thiamine HCl (Vitamin B-1 Tab*) 100 mg PO DAILY [facility] Last Admin: 07/19/19 09:05 Dose: 100 mg Tiotropium [place] (Spiriva Respimat 2.5 Mcg) 2 puff INH DAILY [facility] Last Admin: 07/19/19 08:34 Dose: 2 puff Vital Signs: Temp Pulse Resp BP Pulse Ox 97.4 F 94 18 147/90 99 07/19/19 11:13 07/19/19 11:13 07/19/19 11:13 07/19/19 11:13 07/19/19 11:13 Oxygen Devices in Use Now: Nasal Cannula Appearance: Mr. Stone is an obese older white male who is sitting in a chair with LE elevated. He is breathing comfortably on his home dose of 2L O2 and appears to be in no acute distress. Eyes: No Scleral Icterus, PERRLA Ears/Nose/Mouth/Throat: NL Teeth, Lips, Gums, Clear Oropharnyx, Mucous Membranes Moist Neck: NL Appearance and Movements; NL JVP, Trachea Midline Respiratory: Symmetrical Chest Expansion and Respiratory Effort, Clear to Auscultation Cardiovascular: NL Sounds; No Murmurs; No JVD, - - irregular rate, rhythm controlled; trace LE edema Abdominal: NL Sounds; No Tenderness; No Distention - obese Extremities: No Clubbing, Cyanosis Neurological: Alert and Oriented x 3 Result Diagrams: 07/16/19 04:59 07/18/19 07:50 Additional Lab and Data: Lab Results 07/15/19 Range/Units 06:40 Patient Temperature Not Reportable ABG pH 7.24 L (7.35-7.45) ABG pH (Temp Correct) Not Reportable ABG pCO2 87 H* (35-45) mmHg ABG pCO2 (Temp Corrct Not Reportable ABG pO2 67 L (80-100) mmHg ABG pO2 (Temp Correct Not Reportable ABG HCO3 29.9 (19-31) mmol/L ABG O2 Saturation 93.1 L (94.0-98.0) % ABG Base Excess 6.6 H (-2.0-2.0) mmol/L Respiration Rate Not Reportable Ventilator Type Not Reportable Vent Mode Not Reportable FiO2 100 Inspiratory Time Not Reportable PEEP Not Reportable Pressure Support Not Reportable Pressure Control Not Reportable EPAP Not Reportable IPAP 10 BiPAP Not Reportable Microbiology and Other Data: Microbiology 07/15/19 08:10 Urine Culture - Preliminary Urine Enterobacter Cloacae 07/15/19 19:11 Nasal Screen MRSA (PCR) - Final Nasal Mrsa Not Detected Assess/Plan/Problems-Billing Assessment: Mr Stone is a 74yo M with PMH of chronic hypoxic/hypercapnic respiratory failure, COPD, HFpEF, type 2 DM, HTN, HLD, Afib not on AC, hypothyroidism, GERD , depression, BPH, who presented to ED with dyspnea, found to have acute on chronic hypercapnic respiratory failure secondary to COPD exacerbation and BiPAP non compliance. - Patient Problems (1) Acute hypercapnic respiratory failure Comment: -secondary to COPD exacerbation -improved -this is his 4th admission since end of April -lengthy conversation about indication and importance of BiPAP for his condition , but he was adamant he cannot tolerate it; after he talked to his sister, he is willing to try again; [facility] -received Acetazolamide x 2 and bicarb is down to 31. Patient understands if he doesn't wear BIPAP, his CO2 will go up again. (2) COPD exacerbation Comment: -secondary to bronchitis -continue azithromycin (day 5/5), bronchodilators -transition from IV to PO steroid -continue home inhalers (3) DM2 (diabetes mellitus, type 2) Comment: -BS 190-280; uncontrolled in the setting of steroid use -continue Lantus and Lispro SS (4) UTI (urinary tract infection) Comment: -present on admission, not Bacon catheter related -urine culture growing Enterobacter sensitive to Ceftriaxone (5) (HFpEF) heart failure with preserved ejection fraction Comment: -does not appear to be in exacerbation -continue BB, CCB, imdur, furosemide (6) HTN (hypertension) Comment: -SBP 130-150's -continue dilt, carvedolol, hydralazine, furosemide (7) Atrial fibrillation Comment: -rate controlled; tele shows AF -paroxysmal; not on AC d/t SDH -continue diltiazem and carvedilol (8) Hypothyroidism Comment: -continue levothyroxine (9) HLD (hyperlipidemia) Comment: -continue atorvastatin (10) GERD (gastroesophageal reflux disease) Comment: -continue PPI (11) BPH (benign prostatic hyperplasia) Comment: -continue tamsulosin, finasteride (12) DVT prophylaxis Comment: -SCD's -no anticoagulation due to recent SDH (13) Full code status Status and Disposition: Inpatient. Plan for discharge once BiPAP arranged.
[2019-07-19] MEDS: cefTRIAXone(*) 1 GM in NS 0.9% 50 ML* 50 ML IVPB SCH (14:42)
[2019-07-19] MEDS: Melatonin 3 MG TAB PO SCH (21:45)
[2019-07-19] MEDS: Insulin GLARGINE(*) 1 UNITS UNIT SUBCUT SCH (21:45)
[2019-07-20] MEDS: hydrALAZINE IV* 20 MG/ML VIAL IV SLOW PU PRN (04:10)
[2019-07-20] MEDS: Levothyroxine TAB* 50 MCG TAB PO SCH (05:30)
[2019-07-20] MEDS: SPIRIVA Respimat* (tiotropium) 2.5 mcg/inh Inhaler INH SCH (07:47)
[2019-07-20] MEDS: Albuterol/Ipratropium NEB.SOL* Albuterol 2.5 MG/Ipratropium 0.5 MG 3 ML INH SCH ×2 (07:47→19:54)
[2019-07-20] MEDS: Mometasone/Formoter 200/5 MDI INH SCH ×2 (07:48→19:56)
[2019-07-20] MEDS: Folic Acid TAB* 1 MG PO SCH (08:46)
[2019-07-20] MEDS: Isosorbide Mononitrate ER TAB* 30 MG PO SCH (08:46)
[2019-07-20] MEDS: Magnesium Oxide TAB* 400 MG PO SCH (08:46)
[2019-07-20] MEDS: Potassium Chlor TAB* 20 MEQ TAB.ER PO SCH (08:46)
[2019-07-20] MEDS: Atorvastatin* 10 MG TAB PO SCH (08:46)
[2019-07-20] MEDS: Sertraline* 50 MG TAB PO SCH (08:46)
[2019-07-20] MEDS: Pantoprazole TAB * 40 MG TAB PO SCH (08:46)
[2019-07-20] MEDS: Thiamine TAB* 100 MG TAB PO SCH (08:46)
[2019-07-20] MEDS: Cholecalciferol TAB* 1000 UNITS PO SCH (08:46)
[2019-07-20] MEDS: Lactobacillus Acidophilus* 1 TAB PO SCH (08:46)
[2019-07-20] MEDS: Multivitamins/Minerals TAB PO SCH (08:47)
[2019-07-20] MEDS: Carvedilol TAB* 25 MG PO SCH ×2 (08:47→21:08)
[2019-07-20] MEDS: Diltiazem CD CAP* 120 MG PO SCH (08:47)
[2019-07-20] MEDS: Finasteride TAB* 5 MG PO SCH (08:47)
[2019-07-20] MEDS: Furosemide IV* 10 MG/ML VIAL (40 MG) IV SLOW PU SCH (08:47)
[2019-07-20] MEDS: Insulin LISPRO* 1 UNITS UNIT SUBCUT SCH ×3 (08:47→17:23)
[2019-07-20] MEDS: Tamsulosin CAP* 0.4 MG PO SCH (08:47)
[2019-07-20] MEDS ORDERED: Diltiazem CD CAP* 120 MG PO ONE (10:24)
[2019-07-20] MEDS: cefTRIAXone(*) 1 GM in NS 0.9% 50 ML* 50 ML IVPB SCH (15:11)
--- NOTE | 2019-07-20 19:52 | PN ---
Subjective Date of Service: 07/20/19 Interval History: Mr. Stone states he is eager to be discharged, but is agreeable to waiting for BiPAP machine arrival. He denies cough, fever, chills. He is on his home dose of supplemental oxygen and breathing comfortably. He is using BiPAP overnight without difficulty. No other complaints today. Family History: Unchanged from Admission Social History: Unchanged from Admission Past Medical History: Unchanged from Admission Objective Active Medications: Acetaminophen (Tylenol Tab*) 650 mg PO Q4H PRN PRN Reason: mild to moderate pain Last Admin: 07/15/19 15:23 Dose: 650 mg Albuterol (Ventolin Hfa Inhaler*) 2 puff INH Q4H PRN PRN Reason: SOB/WHEEZING Albuterol/Ipratropium (Duoneb (Albuterol 2.5 Mg/Ipratropium 0.5 Mg)) 1 neb INH BID [facility] Last Admin: 07/20/19 07:47 Dose: 1 neb Atorvastatin Calcium (Lipitor*) 10 mg PO DAILY [facility] Last Admin: 07/20/19 08:46 Dose: 10 mg Carvedilol (Coreg Tab*) 25 mg PO BID [facility] Last Admin: 07/20/19 08:47 Dose: 25 mg Cholecalciferol (Vitamin D Tab*) 2,000 units PO DAILY [facility] Last Admin: 07/20/19 08:46 Dose: 2,000 units Dextrose (Dextrose 50% Vial 50 Ml*) 25 ml IV PUSH .FOR FS < 60 - SS PRN PRN Reason: FS < 60 Diltiazem HCl (Cardizem Cd Cap*) 120 mg PO DAILY [facility] Last Admin: 07/20/19 08:47 Dose: 120 mg Finasteride (Proscar Tab*) 5 mg PO DAILY [facility] Last Admin: 07/20/19 08:47 Dose: 5 mg Folic Acid (Folvite Tab*) 1 mg PO DAILY [facility] Last Admin: 07/20/19 08:46 Dose: 1 mg Furosemide (Lasix Iv*) 40 mg IV SLOW PU DAILY [facility] Last Admin: 07/20/19 08:47 Dose: 40 mg Hydralazine HCl (Apresoline Iv*) 5 mg IV SLOW PU Q6H PRN PRN Reason: SBP > 160 Last Admin: 07/20/19 04:10 Dose: 5 mg Ceftriaxone Sodium 1 gm/ (Sodium Chloride) 50 mls @ 100 mls/hr IVPB Q24H [facility] Last Admin: 07/20/19 15:11 Dose: 100 mls/hr Insulin Glargine (Lantus(*)) 10 units SUBCUT BEDTIME [facility] Last Admin: 07/19/19 21:45 Dose: 10 units Insulin Human Lispro (Humalog*) 0 units SUBCUT AC [facility]; Protocol Last Admin: 07/20/19 17:23 Dose: 9 units Isosorbide Mononitrate (Imdur Er Tab*) 30 mg PO DAILY [facility] Last Admin: 07/20/19 08:46 Dose: 30 mg Lactobacillus Rhamnosus (Lactobacillus Acidophilus*) 1 tab PO DAILY [facility] Last Admin: 07/20/19 08:46 Dose: 1 tab Levothyroxine Sodium (Synthroid Tab*) 50 mcg PO DAILY@0600 [facility] Last Admin: 07/20/19 05:30 Dose: 50 mcg Magnesium Oxide (Magox 400 Tab*) 800 mg PO DAILY [facility] Last Admin: 07/20/19 08:46 Dose: 800 mg Melatonin (Melatonin) 3 mg PO BEDTIME [facility] Last Admin: 07/19/19 21:45 Dose: 3 mg Mometasone Furoate/Formoterol Fumar (Dulera 200/5 Mdi*) 2 puff INH BID [facility]; Protocol Last Admin: 07/20/19 07:48 Dose: 2 puff Multivitamins/Minerals (Theragran/Minerals Tab*) 1 tab PO DAILY [facility] Last Admin: 07/20/19 08:47 Dose: 1 tab Pantoprazole Sodium (Protonix Tab*) 40 mg PO DAILY [facility] Last Admin: 07/20/19 08:46 Dose: 40 mg Potassium Chloride (Klor Con Er Tab*) 40 meq PO DAILY [facility] Last Admin: 07/20/19 08:46 Dose: 40 meq Prednisone (Deltasone 50 Mg Tab) 50 mg PO DAILY [facility] Stop: 07/21/19 09:01 Last Admin: 07/20/19 08:46 Dose: 50 mg Sertraline HCl (Zoloft*) 50 mg PO DAILY [facility] Last Admin: 07/20/19 08:46 Dose: 50 mg Simethicone (Mylicon Tab*) 80 mg PO Q6H PRN PRN Reason: gas Tamsulosin HCl (Flomax Cap*) 0.4 mg PO DAILY [facility] Last Admin: 07/20/19 08:47 Dose: 0.4 mg Thiamine HCl (Vitamin B-1 Tab*) 100 mg PO DAILY [facility] Last Admin: 07/20/19 08:46 Dose: 100 mg Tiotropium [place] (Spiriva Respimat 2.5 Mcg) 2 puff INH DAILY [facility] Last Admin: 07/20/19 07:47 Dose: 2 puff Vital Signs: Temp Pulse Resp BP Pulse Ox 97.6 F 97 20 119/63 96 07/20/19 14:59 07/20/19 14:59 07/20/19 14:59 07/20/19 14:59 07/20/19 14:59 Oxygen Devices in Use Now: Nasal Cannula Appearance: Mr. Stone is an obese, older white male who is sitting in chair with LE elevated; he is seen eating lunch. He appears comfortable and in no acute distress. Eyes: No Scleral Icterus, PERRLA Ears/Nose/Mouth/Throat: NL Teeth, Lips, Gums, Clear Oropharnyx, Mucous Membranes Moist Neck: NL Appearance and Movements; NL JVP, Trachea Midline Respiratory: Symmetrical Chest Expansion and Respiratory Effort, Clear to Auscultation Cardiovascular: NL Sounds; No Murmurs; No JVD, No Edema, - - irregularly irregular Abdominal: NL Sounds; No Tenderness; No Distention, No Hepatosplenomegaly Extremities: No Edema, No Clubbing, Cyanosis Neurological: Alert and Oriented x 3 Result Diagrams: 07/16/19 04:59 07/18/19 07:50 Additional Lab and Data: Lab Results 07/15/19 Range/Units 06:40 Patient Temperature Not Reportable ABG pH 7.24 L (7.35-7.45) ABG pH (Temp Correct) Not Reportable ABG pCO2 87 H* (35-45) mmHg ABG pCO2 (Temp Corrct Not Reportable ABG pO2 67 L (80-100) mmHg ABG pO2 (Temp Correct Not Reportable ABG HCO3 29.9 (19-31) mmol/L ABG O2 Saturation 93.1 L (94.0-98.0) % ABG Base Excess 6.6 H (-2.0-2.0) mmol/L Respiration Rate Not Reportable Ventilator Type Not Reportable Vent Mode Not Reportable FiO2 100 Inspiratory Time Not Reportable PEEP Not Reportable Pressure Support Not Reportable Pressure Control Not Reportable EPAP Not Reportable IPAP 10 BiPAP Not Reportable Microbiology and Other Data: Microbiology 07/15/19 08:10 Urine Culture - Preliminary Urine Enterobacter Cloacae 07/15/19 19:11 Nasal Screen MRSA (PCR) - Final Nasal Mrsa Not Detected Assess/Plan/Problems-Billing Assessment: Mr Stone is a 74yo M with PMH of chronic hypoxic/hypercapnic respiratory failure, COPD, HFpEF, type 2 DM, HTN, HLD, Afib not on AC, hypothyroidism, GERD , depression, BPH, who presented to ED with dyspnea, found to have acute on chronic hypercapnic respiratory failure secondary to COPD exacerbation and BiPAP non compliance. - Patient Problems (1) Acute hypercapnic respiratory failure Comment: -secondary to COPD exacerbation -improved -this is his 4th admission since end of April -lengthy conversation about indication and importance of BiPAP for his condition , but he was adamant he cannot tolerate it; after he talked to his sister, he is willing to try again; [facility] -received Acetazolamide x 2 and bicarb is down to 31. Patient understands if he doesn't wear BIPAP, his CO2 will go up again. (2) COPD exacerbation Comment: -secondary to bronchitis -finished course of azithromycin -continue bronchodilators and PO steroid -continue home inhalers (3) DM2 (diabetes mellitus, type 2) Comment: -BS 160-290; uncontrolled in the setting of steroid use -continue Lantus and Lispro SS (4) UTI (urinary tract infection) Comment: -present on admission, not Bacon catheter related -urine culture growing Enterobacter sensitive to Ceftriaxone -continue ceftriaxone (day 5) (5) (HFpEF) heart failure with preserved ejection fraction Comment: -does not appear to be in exacerbation -continue BB, CCB, imdur, furosemide (6) HTN (hypertension) Comment: -SBP 110-150's -continue dilt, carvedolol, hydralazine, furosemide (7) Atrial fibrillation Comment: -rate controlled; tele shows AF -paroxysmal; not on AC d/t SDH -continue diltiazem and carvedilol (8) Hypothyroidism Comment: -continue levothyroxine (9) HLD (hyperlipidemia) Comment: -continue atorvastatin (10) GERD (gastroesophageal reflux disease) Comment: -continue PPI (11) BPH (benign prostatic hyperplasia) Comment: -continue tamsulosin, finasteride (12) DVT prophylaxis Comment: -SCD's -no anticoagulation due to recent SDH (13) Full code status Status and Disposition: Inpatient. Plan for discharge once BiPAP arranged.
[2019-07-20] MEDS: Melatonin 3 MG TAB PO SCH (21:08)
[2019-07-20] MEDS: Insulin GLARGINE(*) 1 UNITS UNIT SUBCUT SCH (21:09)
[2019-07-21] MEDS: Levothyroxine TAB* 50 MCG TAB PO SCH (05:02)
[2019-07-21] MEDS: Albuterol/Ipratropium NEB.SOL* Albuterol 2.5 MG/Ipratropium 0.5 MG 3 ML INH SCH ×2 (07:54→19:27)
[2019-07-21] MEDS: Mometasone/Formoter 200/5 MDI INH SCH ×2 (07:54→19:27)
[2019-07-21] MEDS: SPIRIVA Respimat* (tiotropium) 2.5 mcg/inh Inhaler INH SCH (07:55)
[2019-07-21] MEDS: Insulin LISPRO* 1 UNITS UNIT SUBCUT SCH ×3 (08:00→16:28)
[2019-07-21] MEDS: Folic Acid TAB* 1 MG PO SCH (08:06)
[2019-07-21] MEDS: Furosemide IV* 10 MG/ML VIAL (40 MG) IV SLOW PU SCH (08:06)
[2019-07-21] MEDS: Lactobacillus Acidophilus* 1 TAB PO SCH (08:07)
[2019-07-21] MEDS: Tamsulosin CAP* 0.4 MG PO SCH (08:07)
[2019-07-21] MEDS: Atorvastatin* 10 MG TAB PO SCH (08:07)
[2019-07-21] MEDS: Finasteride TAB* 5 MG PO SCH (08:07)
[2019-07-21] MEDS: Pantoprazole TAB * 40 MG TAB PO SCH (08:07)
[2019-07-21] MEDS: Thiamine TAB* 100 MG TAB PO SCH (08:07)
[2019-07-21] MEDS: Potassium Chlor TAB* 20 MEQ TAB.ER PO SCH (08:07)
[2019-07-21] MEDS: Carvedilol TAB* 25 MG PO SCH ×2 (08:07→21:37)
[2019-07-21] MEDS: Magnesium Oxide TAB* 400 MG PO SCH (08:07)
[2019-07-21] MEDS: Sertraline* 50 MG TAB PO SCH (08:07)
[2019-07-21] MEDS: Multivitamins/Minerals TAB PO SCH (08:07)
[2019-07-21] MEDS: Diltiazem CD CAP* 120 MG PO SCH (08:07)
[2019-07-21] MEDS: Isosorbide Mononitrate ER TAB* 30 MG PO SCH (08:07)
[2019-07-21] MEDS: Cholecalciferol TAB* 1000 UNITS PO SCH (08:08)
--- NOTE | 2019-07-21 11:36 | PN ---
Subjective Date of Service: 07/21/19 Interval History: Mr. Stone states he is ready to go home, although he does understand we are waiting for BiPAP. He reports that BiPAP is uncomfortable, but he has been using it nightly. He denies cough, SOB, fever, chills. He has no other complaints today. Family History: Unchanged from Admission Social History: Unchanged from Admission Past Medical History: Unchanged from Admission Objective Active Medications: Acetaminophen (Tylenol Tab*) 650 mg PO Q4H PRN PRN Reason: mild to moderate pain Last Admin: 07/15/19 15:23 Dose: 650 mg Albuterol (Ventolin Hfa Inhaler*) 2 puff INH Q4H PRN PRN Reason: SOB/WHEEZING Albuterol/Ipratropium (Duoneb (Albuterol 2.5 Mg/Ipratropium 0.5 Mg)) 1 neb INH BID [facility] Last Admin: 07/21/19 07:54 Dose: 1 neb Atorvastatin Calcium (Lipitor*) 10 mg PO DAILY [facility] Last Admin: 07/21/19 08:07 Dose: 10 mg Carvedilol (Coreg Tab*) 25 mg PO BID [facility] Last Admin: 07/21/19 08:07 Dose: 25 mg Cholecalciferol (Vitamin D Tab*) 2,000 units PO DAILY [facility] Last Admin: 07/21/19 08:08 Dose: 2,000 units Dextrose (Dextrose 50% Vial 50 Ml*) 25 ml IV PUSH .FOR FS < 60 - SS PRN PRN Reason: FS < 60 Diltiazem HCl (Cardizem Cd Cap*) 120 mg PO DAILY [facility] Last Admin: 07/21/19 08:07 Dose: 120 mg Finasteride (Proscar Tab*) 5 mg PO DAILY [facility] Last Admin: 07/21/19 08:07 Dose: 5 mg Folic Acid (Folvite Tab*) 1 mg PO DAILY [facility] Last Admin: 07/21/19 08:06 Dose: 1 mg Furosemide (Lasix Iv*) 40 mg IV SLOW PU DAILY [facility] Last Admin: 07/21/19 08:06 Dose: 40 mg Hydralazine HCl (Apresoline Iv*) 5 mg IV SLOW PU Q6H PRN PRN Reason: SBP > 160 Last Admin: 07/20/19 04:10 Dose: 5 mg Ceftriaxone Sodium 1 gm/ (Sodium Chloride) 50 mls @ 100 mls/hr IVPB Q24H [facility] Last Admin: 07/20/19 15:11 Dose: 100 mls/hr Insulin Glargine (Lantus(*)) 10 units SUBCUT BEDTIME [facility] Last Admin: 07/20/19 21:09 Dose: 10 units Insulin Human Lispro (Humalog*) 0 units SUBCUT AC [facility]; Protocol Last Admin: 07/21/19 08:00 Dose: Not Given Isosorbide Mononitrate (Imdur Er Tab*) 30 mg PO DAILY [facility] Last Admin: 07/21/19 08:07 Dose: 30 mg Lactobacillus Rhamnosus (Lactobacillus Acidophilus*) 1 tab PO DAILY [facility] Last Admin: 07/21/19 08:07 Dose: 1 tab Levothyroxine Sodium (Synthroid Tab*) 50 mcg PO DAILY@0600 [facility] Last Admin: 07/21/19 05:02 Dose: 50 mcg Magnesium Oxide (Magox 400 Tab*) 800 mg PO DAILY [facility] Last Admin: 07/21/19 08:07 Dose: 800 mg Melatonin (Melatonin) 3 mg PO BEDTIME [facility] Last Admin: 07/20/19 21:08 Dose: 3 mg Mometasone Furoate/Formoterol Fumar (Dulera 200/5 Mdi*) 2 puff INH BID [facility]; Protocol Last Admin: 07/21/19 07:54 Dose: 2 puff Multivitamins/Minerals (Theragran/Minerals Tab*) 1 tab PO DAILY [facility] Last Admin: 07/21/19 08:07 Dose: 1 tab Pantoprazole Sodium (Protonix Tab*) 40 mg PO DAILY [facility] Last Admin: 07/21/19 08:07 Dose: 40 mg Potassium Chloride (Klor Con Er Tab*) 40 meq PO DAILY [facility] Last Admin: 07/21/19 08:07 Dose: 40 meq Sertraline HCl (Zoloft*) 50 mg PO DAILY [facility] Last Admin: 07/21/19 08:07 Dose: 50 mg Simethicone (Mylicon Tab*) 80 mg PO Q6H PRN PRN Reason: gas Tamsulosin HCl (Flomax Cap*) 0.4 mg PO DAILY [facility] Last Admin: 07/21/19 08:07 Dose: 0.4 mg Thiamine HCl (Vitamin B-1 Tab*) 100 mg PO DAILY [facility] Last Admin: 07/21/19 08:07 Dose: 100 mg Tiotropium [place] (Spiriva Respimat 2.5 Mcg) 2 puff INH DAILY [facility] Last Admin: 07/21/19 07:55 Dose: 2 puff Vital Signs: Temp Pulse Resp BP Pulse Ox 97.5 F 87 14 118/82 97 07/21/19 11:15 07/21/19 11:15 07/21/19 11:15 07/21/19 11:15 07/21/19 11:15 Oxygen Devices in Use Now: Nasal Cannula Appearance: Mr. Stone is an obese older white male who is sitting in chair with LE elevated. He is breathing comfortably on home dose of O2. He appears to be in no acute distress. Eyes: No Scleral Icterus, PERRLA Ears/Nose/Mouth/Throat: NL Teeth, Lips, Gums, Clear Oropharnyx, Mucous Membranes Moist Neck: NL Appearance and Movements; NL JVP, Trachea Midline Respiratory: Symmetrical Chest Expansion and Respiratory Effort, Clear to Auscultation Cardiovascular: NL Sounds; No Murmurs; No JVD, No Edema, - - irregularly irregular Abdominal: NL Sounds; No Tenderness; No Distention, No Hepatosplenomegaly Extremities: No Edema, No Clubbing, Cyanosis Neurological: Alert and Oriented x 3 Result Diagrams: 07/16/19 04:59 07/18/19 07:50 Additional Lab and Data: Lab Results 07/15/19 Range/Units 06:40 Patient Temperature Not Reportable ABG pH 7.24 L (7.35-7.45) ABG pH (Temp Correct) Not Reportable ABG pCO2 87 H* (35-45) mmHg ABG pCO2 (Temp Corrct Not Reportable ABG pO2 67 L (80-100) mmHg ABG pO2 (Temp Correct Not Reportable ABG HCO3 29.9 (19-31) mmol/L ABG O2 Saturation 93.1 L (94.0-98.0) % ABG Base Excess 6.6 H (-2.0-2.0) mmol/L Respiration Rate Not Reportable Ventilator Type Not Reportable Vent Mode Not Reportable FiO2 100 Inspiratory Time Not Reportable PEEP Not Reportable Pressure Support Not Reportable Pressure Control Not Reportable EPAP Not Reportable IPAP 10 BiPAP Not Reportable Microbiology and Other Data: Microbiology 07/15/19 08:10 Urine Culture - Preliminary Urine Enterobacter Cloacae 07/15/19 19:11 Nasal Screen MRSA (PCR) - Final Nasal Mrsa Not Detected Assess/Plan/Problems-Billing Assessment: Mr Stone is a 74yo M with PMH of chronic hypoxic/hypercapnic respiratory failure, COPD, HFpEF, type 2 DM, HTN, HLD, Afib not on AC, hypothyroidism, GERD , depression, BPH, who presented to ED with dyspnea, found to have acute on chronic hypercapnic respiratory failure secondary to COPD exacerbation and BiPAP non compliance. - Patient Problems (1) Acute hypercapnic respiratory failure Comment: -secondary to COPD exacerbation -improved -this is his 4th admission since end of April -lengthy conversation about indication and importance of BiPAP for his condition , but he was adamant he cannot tolerate it; after he talked to his sister, he is willing to try again; awaiting Bi[facility] -received Acetazolamide x 2 and bicarb is down to 31. Patient understands if he doesn't wear BIPAP, his CO2 will go up again. (2) COPD exacerbation Comment: -resolved -secondary to bronchitis -finished course of azithromycin and prednisone -continue bronchodilators and home inhalers (3) DM2 (diabetes mellitus, type 2) Comment: -BS 120-330 -uncontrolled in the setting of steroid use; today was last dose -continue Lantus and Lispro SS (4) UTI (urinary tract infection) Comment: -present on admission, not Bacon catheter related -urine culture growing Enterobacter sensitive to Ceftriaxone -continue ceftriaxone (day 6/7) (5) (HFpEF) heart failure with preserved ejection fraction Comment: -does not appear to be in exacerbation -continue BB, CCB, imdur, furosemide (6) HTN (hypertension) Comment: -SBP 110-160's -continue dilt, carvedolol, hydralazine, furosemide (7) Atrial fibrillation Comment: -rate controlled; tele shows AF -paroxysmal; not on AC d/t SDH -continue diltiazem and carvedilol (8) Hypothyroidism Comment: -continue levothyroxine (9) HLD (hyperlipidemia) Comment: -continue atorvastatin (10) GERD (gastroesophageal reflux disease) Comment: -continue PPI (11) BPH (benign prostatic hyperplasia) Comment: -continue tamsulosin, finasteride (12) DVT prophylaxis Comment: -SCD's -no anticoagulation due to recent SDH (13) Full code status Status and Disposition: Inpatient. Plan for discharge once BiPAP arranged.
[2019-07-21] MEDS: cefTRIAXone(*) 1 GM in NS 0.9% 50 ML* 50 ML IVPB SCH (14:41)
[2019-07-21] MEDS: Insulin GLARGINE(*) 1 UNITS UNIT SUBCUT SCH (21:37)
[2019-07-21] MEDS: Melatonin 3 MG TAB PO SCH (21:37)
[2019-07-22] MEDS: Levothyroxine TAB* 50 MCG TAB PO SCH (06:11)
[2019-07-22] MEDS: Mometasone/Formoter 200/5 MDI INH SCH (07:34)
[2019-07-22] MEDS: Albuterol/Ipratropium NEB.SOL* Albuterol 2.5 MG/Ipratropium 0.5 MG 3 ML INH SCH (07:34)
[2019-07-22] MEDS: SPIRIVA Respimat* (tiotropium) 2.5 mcg/inh Inhaler INH SCH (07:34)
[2019-07-22] MEDS: Insulin LISPRO* 1 UNITS UNIT SUBCUT SCH ×3 (07:53→17:20)
[2019-07-22] MEDS: Magnesium Oxide TAB* 400 MG PO SCH (09:03)
[2019-07-22] MEDS: Diltiazem CD CAP* 120 MG PO SCH (09:03)
[2019-07-22] MEDS: Tamsulosin CAP* 0.4 MG PO SCH (09:04)
[2019-07-22] MEDS: Cholecalciferol TAB* 1000 UNITS PO SCH (09:04)
[2019-07-22] MEDS: Finasteride TAB* 5 MG PO SCH (09:04)
[2019-07-22] MEDS: Thiamine TAB* 100 MG TAB PO SCH (09:04)
[2019-07-22] MEDS: Lactobacillus Acidophilus* 1 TAB PO SCH (09:04)
[2019-07-22] MEDS: Multivitamins/Minerals TAB PO SCH (09:04)
[2019-07-22] MEDS: Isosorbide Mononitrate ER TAB* 30 MG PO SCH (09:04)
[2019-07-22] MEDS: Sertraline* 50 MG TAB PO SCH (09:04)
[2019-07-22] MEDS: Potassium Chlor TAB* 20 MEQ TAB.ER PO SCH (09:04)
[2019-07-22] MEDS: Pantoprazole TAB * 40 MG TAB PO SCH (09:05)
[2019-07-22] MEDS: Atorvastatin* 10 MG TAB PO SCH (09:05)
[2019-07-22] MEDS: Folic Acid TAB* 1 MG PO SCH (09:05)
[2019-07-22] MEDS: Carvedilol TAB* 25 MG PO SCH (09:05)
[2019-07-22] MEDS: Furosemide IV* 10 MG/ML VIAL (40 MG) IV SLOW PU SCH (09:05)
[2019-07-22] MEDS: cefTRIAXone(*) 1 GM in NS 0.9% 50 ML* 50 ML IVPB SCH (15:31)
[2019-07-22 15:39] VITALS: BP 101/65
--- NOTE | 2019-07-23 04:10 | DS ---
CC: Sylvie Parish NP * DISCHARGE SUMMARY: DATE OF ADMISSION: 07/15/19 DATE OF DISCHARGE: 07/22/19 PRIMARY CARE PROVIDER: Sylvie Parish NP ATTENDING PHYSICIAN: Dr. Laury Huizar * (dictated by ARI Melendez) PRIMARY DIAGNOSES: 1. Acute on chronic hypoxic and hypercapnic respiratory failure. 2. Chronic obstructive pulmonary disease exacerbation. 3. Urinary tract infection with Enterobacter cloacae. SECONDARY DIAGNOSES: 1. Chronic hypoxic and hypercapnic respiratory failure, requiring 2 L of oxygen at all times. 2. Chronic obstructive pulmonary disease. 3. Heart failure, preserved ejection fraction. 4. Diabetes mellitus type 2, not on insulin. 5. Hypertension. 6. Hyperlipidemia. 7. Atrial fibrillation, not on anticoagulation. 8. Hypothyroidism. 9. Gastroesophageal reflux disease. 10. Depression. 11. Benign prostatic hypertrophy. STUDIES WHILE IN THE HOSPITAL: Chest x-ray, impression: Blunting of the left costophrenic angle, could be due to atelectasis and/or pleural effusion, the degree of aeration is improved relative to the 07/03/19 chest x-ray. DISCHARGE MEDICATIONS: Home medications: 1. Albuterol HFA inhaler 2 puffs inhalation q.4 hours p.r.n. 2. Atorvastatin 10 mg p.o. daily. 3. Budesonide/formoterol 160/4.5 two puffs inhalation b.i.d. 4. Carvedilol 25 mg p.o. b.i.d. 5. Cholecalciferol 2000 units p.o. daily. 6. Diltiazem CD 120 mg p.o. daily. 7. Finasteride 5 mg p.o. daily. 8. Folic acid 1 mg p.o. daily. 9. Furosemide 40 mg p.o. daily. 10. Isosorbide mononitrate ER 30 mg p.o. daily. 11. Lactobacillus acidophilus 1 cap p.o. daily. 12. Levothyroxine 50 mcg p.o. daily. 13. Magnesium oxide 800 mg p.o. daily. 14. Metformin 1000 mg p.o. b.i.d. 15. Nystatin cream 1 application topically daily p.r.n. 16. Omeprazole 20 mg p.o. daily. 17. Ondansetron 4 mg p.o. q.6 hours p.r.n. 18. Sertraline 50 mg p.o. daily. 19. Simethicone 80 mg p.o. q.6 hours p.r.n. 20. Tamsulosin 0.4 mg p.o. daily. 21. Thiamine 100 mg p.o. daily. 22. Tiotropium capsule 1 cap inhalation daily. HISTORY OF PRESENT ILLNESS/HOSPITAL COURSE: Mr. Stone is a 74-year-old male with a past medical history of chronic hypoxic and hypercapnic respiratory failure, requiring 2 L of oxygen at all times; COPD; heart failure, preserved ejection fraction, who presented to the ER on 07/15/19 with complaints of shortness of breath. For full and complete details, please see the history and physical dictated on 07/15/19, but in short, the patient presents with the above symptoms noting that he awoke with these symptoms. Chart reveals recommendations for BiPAP, which he refused. The patient was admitted and placed on BiPAP due to elevated CO2 and shortness of breath. He was admitted to the ICU. He was eventually weaned off of daytime BiPAP, but continued to use BiPAP at night. Initially, the patient was having difficulty with tolerating therapy, but he eventually started to use the machine every night. He reports that he is able to tolerate the machine longer each night, although he does report that it is still mildly uncomfortable. Upon admission, the patient was noted to be in mild COPD exacerbation. He received a full course of azithromycin and oral steroids. He was continued on his home medications. Upon arrival, the patient's urinalysis revealed 3+ LE, negative for nitrites and bacteria. He had a Bacon in place at that time, which was changed. The patient was started on ceftriaxone. Urine cultures came back with Enterobacter cloacae, which was sensitive to ceftriaxone. The patient remained on ceftriaxone throughout his stay and completed a 7-day course of antibiotics. At the time of discharge, the patient states that he has a mild cough, but denies fevers and chills. He is eager to be discharged to home. His sister has offered to shrimp picker his BiPAP machine for [place] and will then receive teaching on the BiPAP machine in written for her brother. She plans to discuss instructions with him upon taking him home. The patient denies dizziness, lightheadedness, vision changes, difficulty speaking or swallowing, chest pain, shortness of breath. He again has mild cough without fevers, chills, sweats, or fatigue. He denies abdominal pain, nausea, vomiting, diarrhea, myalgias, arthralgias, swelling in the extremities. Mr. Stone is stable for discharge to home. PHYSICAL EXAMINATION: Vital Signs: Temperature 96.9 temporal, heart rate 84, respiratory 20, oxygen saturation 99% on 2 L nasal cannula, blood pressure 101/ 65. General: Mr. Stone is a well-developed, well-nourished, obese, older while male who is sitting in his chair with his lower extremities elevated. He is breathing comfortably on 2 L supplemental oxygen. He speaks in complete sentences. HEENT: PERRL, EOMI. Hearing grossly intact. Oral mucous membranes are moist. There are no lesions. The pharynx is clear. The tongue is at midline. Palate elevates symmetrically. Cardiovascular: Irregular rate and rhythm with S1, S2 present. There are no murmurs, rubs, clicks, or gallops. There is no JVD or peripheral edema. Pulmonary: Symmetrical chest expansion without use of accessory muscles. Clear to auscultation bilaterally without rhonchi, wheeze, or rales. Abdomen: Obese. Bowel sounds in all quadrants. Soft, nontender to palpation. Neuro: The patient is awake. He is alert and oriented x3. Cranial nerves are grossly intact. DISCHARGE PLAN: Mr. Stone will be discharged to home. CONDITION: Fair. DIET: 1. Heart Healthy. 2. ADA/diabetic. ACTIVITY: As tolerated. MEDICATIONS: 1. Continue home medications. 2. Continue BiPAP. EDUCATION: 1. Recheck BMP in 3 to 5 days and prior to appointment with primary care provider. 2. Follow up with primary care provider in 4 to 7 days. 3. Return to the ER or nearest hospital if you experience any return or worsening of symptoms, chest pain or discomfort, shortness of breath, dizziness , lightheadedness, loss of consciousness, high fevers, chills, night sweats, or any other worrisome signs or symptoms. This is a summarized report of a complex medical history and hospital stay. For further details, please see the entire medical record. TIME SPENT: Approximately 38 minutes was spent on this discharge, greater than half that time was spent [id number] with the patient discussing discharge plans and instructions. ARI SANCHEZ [id number]/[facility] #: [id number] SAMAN
== END 2019-07-22 18:36 | disposition home or self-care (01) | DRG 189 ==
LOC: ED 06:32 → ICU 11:13 → MEDTELE 07-16 09:05
PROVIDERS: ADMIT Hospitalist; ATTEND Internal Medicine
PROC: 5A09357 Assistance with Respiratory Ventilation, Less than 24 Consecutive Hours, Continuous Positive Airway Pressure (ICD-10-PCS; principal; 2019-07-15)
DX: J96.21 Acute and chronic respiratory failure with hypoxia (principal); J44.1 Chronic obstructive pulmonary disease with (acute) exacerbation; N39.0 Urinary tract infection, site not specified; E87.2 Acidosis; I50.32 Chronic diastolic (congestive) heart failure; J96.22 Acute and chronic respiratory failure with hypercapnia; B96.89 Other specified bacterial agents as the cause of diseases classified elsewhere; E03.9 Hypothyroidism, unspecified; I11.0 Hypertensive heart disease with heart failure; E11.9 Type 2 diabetes mellitus without complications; I48.91 Unspecified atrial fibrillation; N40.0 Benign prostatic hyperplasia without lower urinary tract symptoms; M10.9 Gout, unspecified; F43.10 Post-traumatic stress disorder, unspecified; E78.5 Hyperlipidemia, unspecified; D64.9 Anemia, unspecified; F40.240 Claustrophobia; E66.9 Obesity, unspecified; J40 Bronchitis, not specified as acute or chronic; K21.9 Gastro-esophageal reflux disease without esophagitis; F32.9 Major depressive disorder, single episode, unspecified; T38.0X5A Adverse effect of glucocorticoids and synthetic analogues, initial encounter; Y92.239 Unspecified place in hospital as the place of occurrence of the external cause; Z68.32 Body mass index [BMI] 32.0-32.9, adult; Z87.891 Personal history of nicotine dependence; Z99.81 Dependence on supplemental oxygen; Z91.19 Patient's noncompliance with other medical treatment and regimen; Z79.890 Hormone replacement therapy; Z79.84 Long term (current) use of oral hypoglycemic drugs; Z79.899 Other long term (current) drug therapy; Z99.89 Dependence on other enabling machines and devices
CPT/HCPCS: 36415; 36600; 71045; 80048; 80053; 81003; 81015; 82607; 82728; 82746; 82803; 83540; 83550; 83605; 83880; 84484; 85025; 86140; 87077; 87086; 87186; 87641; 93005; 94640; 94660; 99285; A9270-GY; J0360; J0456; J0696; J1940; J2060; J2930; J3411; J3535; J7512

== ENCOUNTER 2019-08-10 19:01 | Inpatient (IN) | payer OTHER ==
--- OUTSIDE RECORDS SUMMARY | 2019-08-10 19:16 | XMS REPORT ---
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 Chronic Chronic Diagnosis Active 2018-07 Abigail diastolic diastolic 08-04 Carrier RN (congestive (congestive ) heart ) heart failure [...] mellitus without without complicatio complicatio ns ns Unspecified Unspecified Diagnosis Active Abigail atrial atrial Carrier RN fibrillatio fibrillatio n n Anemia, Anemia, Diagnosis Active Baigail unspecified unspecified Carrier RN Major Major Diagnosis Active Abigail depressive depressive Carrier RN disorder, disorder, single single episode, episode, unspecified unspecified Benign Benign Diagnosis Active Abigail prostatic prostatic Carrier RN hyperplasia hyperplasia with lower with lower urinary urinary tract tract symptoms symptoms Other Other Diagnosis Active Abigail retention retention Carrier RN of urine of urine Encounter Encounter Diagnosis Active Abigail for fitting for fitting Carrier RN and and adjustment adjustment of urinary of urinary device device Hypothyroid Hypothyroid Diagnosis Active Abigail ism, ism, Carrier RN unspecified unspecified Hyperlipide Hyperlipide Diagnosis Active Abigail jered, jered, Carrier RN unspecified unspecified Gastro-esop Gastro-esop Diagnosis Active Abigail hageal hageal Carrier RN reflux reflux disease disease without without esophagitis esophagitis Obesity, Obesity, Diagnosis Active Abigail unspecified unspecified Carrier RN Dependence Dependence Diagnosis Active Abigail on on Carrier RN supplementa supplementa l oxygen l oxygen intermediate long term Diagnosis Active Abigail (current) (current) Carrier RN use of use of inhaled inhaled steroids steroids long term intermediate Diagnosis Active Abigail (current) (current) Carrier RN use of oral use of oral hypoglycemi hypoglycemi c drugs c drugs Personal Personal Diagnosis Active Abigail history of history of Carrier RN urinary urinary (tract) (tract) infections infections Personal Personal Diagnosis Active Abigail history of history of Carrier RN nicotine nicotine dependence dependence Body mass Body mass Diagnosis Active Abigail index (BMI) index (BMI) Carrier RN 32.0-32.9, 32.0-32.9, adult adult Pain frequent Pain Mgmt Resolve 2018-072019-08-02 Mary pain d 08-23 12:50:00 [place] 12:28: [id number] 00 Respiratory dyspnea Respirator Active 2018-07 Mary present y 08-23 [place] 12:28: [id number] 00 Respiratory oxygen Respirator Active 2018-07 Mary treatments y 08-23 [place] in home 12:28: [id number] 00 Respiratory lung sounds Respirator Active 2018-07 Mary deficit y 08-23 [place] 12:28: [id number] 00 Endo/Carlos diabetic Endo/Carlos Resolve 2018-072019-07-30 Mary foot care d 08-23 10:45:00 [place] 12:28: [id number] 00 Sensory impaired Sensory Active 2018-07 Mary hearing 08-23 [place] 12:28: [id number] 00 Integument skin Integument Active 2018-07 Mary integrity 08-23 [place] risk 12:28: [id number] 00 Nutrition nutritional Nutrition Resolve 2018-072019-07-30 Mary restriction d 08-23 10:45:00 [place] s 12:28: [id number] 00 Elimination catheter Eliminatio Active 2018-07 Mary present n 08-23 [place] 12:28: [id number] 00 Elimination ostomy Eliminatio Resolve 2018-072019-06-24 Mary present n d 08-23 14:35:00 [place] 12:28: [id number] 00 Neuro confusion Neuro/Emot Resolve 2018-072019-08-02 Mary present ion d 08-23 12:50:00 [place] 12:28: [id number] 00 Activity ADL Activity Resolve 2018-072019-08-02 Mary assistance d 2- 12:50:00 [place] required 12:28: [id number] 00 Activity self-care Activity Resolve 2018-072019-07-30 Mary deficit d 2-17 10:45:00 [place] 12:28: [id number] 00 Safety structural Safety Active 2018-07 Mary barriers 08-23 [place] present 12:28: [id number] 00 Safety fall risk Safety Active 2018-07 Mary factor 08-23 [place] present 12:28: [id number] 00 Safety risk for Safety Active 2018-07 Mary hospitaliza 08-23 [place] tion 12:28: [id number] 00 Safety can be left Safety Active 2018-07 Mary alone for 08-23 [place] only short 12:28: [id number] periods 00 Medication oral med Meds Resolve 2018-072019-08-02 Mary assistance d 2- 12:50:00 [place] required 12:28: [id number] 00 Medication knowledge/s Meds Resolve 2018-072019-08-02 Mary kill d 2- 12:50:00 [place] deficit: pt 12:28: [id number] 00 Medication knowledge/s Meds Resolve 2018-072019-08-02 Mary kill d 2- 12:50:00 [place] deficit: cg 12:28: [id number] 00 Medication potential Meds Resolve 2018-072019-08-02 Mary clinically d - 12:50:00 [place] significant 12:28: [id number] medication 00 issue Musculoskel transfer Musculoske Active 2018-07 Mary etal assistance letal 08-23 [place] required 12:28: [id number] 00 Musculoskel requires Musculoske Active 2018-07 Mary etal human letal 08-23 [place] assist to 12:28: [id number] leave home 00 Cardio edema Cardiovasc Active [...] Social 2-27 [place] deficit - Services 10:00: [id number] pt 00 Social knowledge/s SERGIO: Active 2018-07 Nancy Services kill Social 2- [place] deficit - Services 10:00: [id number] cg 00 Social knowledge/s SERGIO: Unknown 2018-07 Alicia Services kill Social 2-30 [place] deficit - Services 13:17: [id number] cg 00 Cardio knowledge/s Cardiovasc Active 2020-0 Abigail kill ular 1-17 Carrier RN deficit: pt 14:45: 00 Respiratory CPAP Respirator Active 2020-0 Abigail treatments y 1-17 Carrier RN in home 14:45: 00 Respiratory knowledge/s Respirator Active 2020-0 Abigail kill y 1-17 Carrier RN deficit: pt 14:45: 00 Respiratory knowledge/s Respirator Active 2020-0 Abigail kill y 1-17 Carrier RN deficit: cg 14:45: 00 Elimination recurring Eliminatio Active 2020-0 Abigail UTI n 1-17 Carrier RN 14:45: 00 Elimination UTI within Eliminatio Active 2020-0 Abigail past 14 n 1-17 Carrier RN days 14:45: 00 Medication inhalant Meds Active 2020-0 Abigail med 1-17 Carrier RN assistance 14:45: required 00 Respiratory BiPAP Respirator Active 2020-0 Abigail treatments y 1-24 Carrier RN in home 10:45: 00 Nutrition nutritional Nutrition Active 2020-0 Abigail restriction 1-27 Carrier RN s 12:50: 00 Medication knowledge/s Meds Active 2020-0 Abigail kill 1-28 Carrier RN deficit: pt 16:00: 00 Allergies, Adverse Reactions, Alerts Allergy Allergy Status Severity Reaction(s) Onset Inactive Treating Comments Name Type Date Date Clinician Unknown None Active Unknown None Unknown No Known Allergies For This Patient Medications Ordered Filled Start Stop Current Ordering Indication Dosage Frequency Signature Comments Components Medication Medication Date Date Medication? Clinician (SIG) Name Name furosemide furosemide 2018-07 Yes Arnold Unknown Unknown 20 mg 20 mg 2-17 ,Gokul tablet tablet thiamine thiamine 2018-07 Yes Humza Unknown Unknown HCl HCl 2-17 Gokul SALAZAR (vitamin (vitamin B1) 100 mg B1) 100 mg tablet tablet atorvastati atorvastati 2018-07 Yes Arnold Unknown Unknown n 20 mg n 20 mg 2- ,Gokul tablet tablet carvedilol carvedilol 2018-07 Yes Humza Unknown Unknown 25 mg 25 mg 2- ,Gokul tablet tablet DILT-XR 120 DILT-XR 120 2018-07 Yes Humza Unknown Unknown mg capsule, mg capsule, 2- ,Gokul extended extended release release isosorbide isosorbide 2018-07 Yes Humza Unknown Unknown mononitrate mononitrate 2-17 ,Gokul ER 30 mg ER 30 mg tablet,exte tablet,exte nded nded release 24 release 24 hr hr Symbicort Symbicort 2018-07 Yes Arnold Unknown Unknown 160 mcg-4.5 160 mcg-4.5 2- [...] 5 mg tablet 5 mg tablet 2-17 ,Gokul sertraline sertraline 2018-07 Yes Humza Unknown Unknown 100 mg 100 mg 2-17 ,Gokul tablet tablet tamsulosin tamsulosin 2018-07 Yes Humza Unknown Unknown 0.4 mg 0.4 mg 2- ,Gokul capsule capsule ondansetron ondansetron 2018-07 Yes Humza Unknown Unknown 4 mg 4 mg 2- Gokul SALAZAR disintegrat disintegrat ing tablet ing tablet simethicone simethicone 2018-07 Yes Humza Unknown Unknown 80 mg 80 mg 2-17 Gokul SALAZAR chewable chewable tablet tablet omeprazole omeprazole 2018-07 Yes Humza Unknown Unknown 20 mg 20 mg 2- Gokul SALAZAR capsule,del capsule,del ayed ayed release release metFORMIN metFORMIN 2018-07 Yes Humza Unknown Unknown 1,000 mg 1,000 mg 2 Gokul SALAZAR tablet tablet levothyroxi levothyroxi 2018-07 Yes Humza Unknown Unknown ne 50 mcg ne 50 mcg 2 Gokul SALAZAR tablet tablet Lactobac. Lactobac. 2018-07 Yes Arnold Unknown Unknown acidophilus acidophilus 08-23 Gokul SALAZAR -Bifido. -Bifido. animalis 10 animalis 10 billion billion cell cell chewable chewable tablet tablet folic acid folic acid 2018-07 Yes Arnold Unknown Unknown 1 mg tablet 1 mg tablet 08-23 Gokul SALAZAR magnesium magnesium 2018-07 Yes Humza Unknown Unknown oxide 400 oxide 400 08-23 Gokul SALAZAR mg (241.3 mg (241.3 mg mg magnesium) magnesium) tablet tablet colchicine colchicine 2018-07 Yes Arnold Unknown Unknown 0.6 mg 0.6 mg 08-23 Gokul SALAZAR tablet tablet cholecalcif cholecalcif 2018-07 Yes Arnold Unknown Unknown murray murray 08-23 Gokul SALAZAR (vitamin (vitamin D3) 1,000 D3) 1,000 unit unit capsule capsule Tums 200 mg Tums 200 mg 2018-07 Yes Humza Unknown Unknown calcium calcium 08-23 Gokul SALAZAR (500 mg) (500 mg) chewable chewable tablet tablet oxygen oxygen 2018-07 Yes Arnold Unknown Unknown 08-23 Gokul SALAZAR acetaminoph acetaminoph 2018-07 Yes Arnold Unknown Unknown en 500 mg en 500 mg 08-29 Gokul SALAZAR tablet tablet azithromyci azithromyci 2018-07- Yes Humza Unknown Unknown n 250 mg n 250 mg 09-02 Gokul SALAZAR tablet tablet amoxicillin amoxicillin 2018-07- Yes Arnold Unknown Unknown [id number] 09-02 Gokul SALAZAR mg-potassiu mg-potassiu m m clavulanate clavulanate 125 mg 125 mg tablet tablet diphenhydrA diphenhydrA 2018-07 Yes Arnold Unknown Unknown MINE 25 mg MINE 25 mg 09-02 MD,Gokul tablet tablet Zithromax Zithromax 2018-07- Yes Humza Unknown Unknown 250 mg 250 mg 09-03 ,Gokul tablet tablet Vital Signs Vital Name Observation Time Observation Value Comments SYSTOLIC mm[Hg] 2019-08-09 18:10:12 140 mm[Hg] mm[Hg] Method: Sit SYSTOLIC mm[Hg] 2019-06-22 18:09:24 148 mm[Hg] mm[Hg] Method: Stand DIASTOLIC mm[Hg] 2019-08-09 18:10:12 80 mm[Hg] mm[Hg] Method: Sit DIASTOLIC mm[Hg] 2019-06-22 18:09:24 84 mm[Hg] mm[Hg] Method: Stand PULSE 2019-08-09 18:10:12 70 /min /min RESP RATE 2019-08-09 18:10:12 16 /min /min TEMP 2019-08-09 18:10:12 99.3 [degF] Procedures This patient has no known procedures. Results This patient has no known results.
--- OUTSIDE RECORDS SUMMARY | 2019-08-10 19:16 | XMS REPORT ---
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 manager Diagnosis Active Abigail (current) (current) Carrier RN use of use of inhaled inhaled steroids steroids admitting manager [facility] Diagnosis Active Abigail (current) (current) Carrier RN use of oral use of oral hypoglycemi hypoglycemi c drugs c drugs Personal Personal Diagnosis Active Aibgail history of history of Carrier RN urinary urinary (tract) (tract) infections infections Personal Personal Diagnosis Active Abigail history of history of Carrier RN nicotine nicotine dependence dependence Body mass Body mass Diagnosis Active Abigail index (BMI) index (BMI) Carrier RN 32.0-32.9, 32.0-32.9, adult adult Pain frequent Pain Mgmt Resolve 2018-072019-08-02 Mary pain d 08-23 12:50:00 [place] 12:28: [id number] 00 Respiratory dyspnea Respirator Active 2018-07 Mary present y 08-23 [place] 12:28: [id number] 00 Respiratory oxygen Respirator Active 2018-07 Mary treatments y 08-23 [place] in home 12:28: [id number] 00 Respiratory lung sounds Respirator Active 2018-07 Mary deficit y 08-23 [place] 12:28: [id number] 00 Endo/Carlos diabetic Endo/Carlos Resolve 2018-072019-07-30 Mary foot care d 08-23 10:45:00 [place] 12:28: [id number] 00 Sensory impaired Sensory Active 2018-07 Mary hearing 08-23 [place] 12:28: [id number] 00 Integument skin Integument Active 2018-07 Mary integrity 08-23 [place] risk 12:28: [id number] 00 Nutrition nutritional Nutrition Resolve 2018-072019-07-30 Mary restriction d 08-23 10:45:00 [place] s 12:28: [id number] 00 Elimination catheter Eliminatio Active 2018-07 Mary present n 08-23 [place] 12:28: [id number] 00 Elimination ostomy Eliminatio Resolve 2018-072019-06-24 Mary present n d 08-23 14:35:00 [place] 12:28: [id number] 00 Neuro confusion Neuro/Emot Resolve 2018-072019-08-02 Mary present ion d 08-23 12:50:00 [place] 12:28: [id number] 00 Activity ADL Activity Resolve 2018-072019-08-02 Mary assistance d 2- 12:50:00 [place] required 12:28: [id number] 00 Activity self-care Activity Resolve 2018-072019-07-30 Mary deficit d 2-17 10:45:00 [place] 12:28: [id number] 00 Safety structural Safety Active 2018-07 Mary barriers 08-23 [place] present 12:28: [id number] 00 Safety fall risk Safety Active 2018-07 Mary factor 08-23 [place] present 12:28: [id number] 00 Safety risk for Safety Active 2018-07 Mary hospitaliza 08-23 [place] tion 12:28: [id number] 00 Safety can be left Safety Active 2018-07 Mary alone for 08-23 [place] only short 12:28: [id number] periods 00 Medication oral med Meds Resolve 2018-072019-08-02 Mary assistance d 2- 12:50:00 [place] required 12:28: [id number] 00 Medication knowledge/s Meds Resolve 2018-072019-08-02 Mary kill d 2- 12:50:00 [place] deficit: pt 12:28: [id number] 00 Medication knowledge/s Meds Resolve 2018-072019-08-02 Mary kill d 2- 12:50:00 [place] deficit: cg 12:28: [id number] 00 Medication potential Meds Resolve 2018-072019-08-02 Mary clinically d - 12:50:00 [place] significant 12:28: [id number] medication 00 issue Musculoskel transfer Musculoske Active 2018-07 Mary etal assistance letal 08-23 [place] required 12:28: [id number] 00 Musculoskel requires Musculoske Active 2018-07 Mary etal human letal 08-23 [place] assist to 12:28: [id number] leave home 00 Cardio edema Cardiovasc Active [...] Social 2-27 [place] deficit - Services 10:00: [id number] pt 00 Social knowledge/s SERGIO: Active 2018-07 Nancy Services kill Social 2- [place] deficit - Services 10:00: [id number] cg 00 Social knowledge/s SERGIO: Unknown 2018-07 Alicia Services kill Social 2-30 [place] deficit - Services 13:17: [id number] cg 00 Cardio knowledge/s Cardiovasc Active 2019-0 Abigail kill ular 1-17 Carrier RN deficit: pt 14:45: 00 Respiratory CPAP Respirator Active 2019-0 Abigail treatments y 1-17 Carrier RN in home 14:45: 00 Respiratory knowledge/s Respirator Active 2020-0 Abigail kill y 1-17 Carrier RN deficit: pt 14:45: 00 Respiratory knowledge/s Respirator Active 2020-0 Abigail kill y 1-17 Carrier RN deficit: cg 14:45: 00 Elimination recurring Eliminatio Active 2019-0 Abigail UTI n 1-17 Carrier RN 14:45: 00 Elimination UTI within Eliminatio Active 2020-0 Abigail past 14 n 1-17 Carrier RN days 14:45: 00 Medication inhalant Meds Active 2019-0 Abigail med 1-17 Carrier RN assistance 14:45: required 00 Respiratory BiPAP Respirator Resolve 2020-0 2019-07-30 Abigail treatments y d -24 10:45:00 Carrier RN in home 10:45: 00 Nutrition nutritional Nutrition Active 2019-0 Abigail restriction - Carrier RN s 12:50: 00 Allergies, Adverse Reactions, Alerts Allergy Allergy Status Severity Reaction(s) Onset Inactive Treating Comments Name Type Date Date Clinician Unknown None Active Unknown None Unknown No Known Allergies For This Patient Medications Ordered Filled Start Stop Current Ordering Indication Dosage Frequency Signature Comments Components Medication Medication Date Date Medication? Clinician (SIG) Name Name furosemide furosemide 2018-07 Yes [place] Unknown Unknown 20 mg 20 mg 2-17 Gokul SALAZAR tablet tablet thiamine thiamine 2018-07 Yes [place] Unknown Unknown HCl HCl 2- Gokul SALAZAR (vitamin (vitamin B1) 100 mg B1) 100 mg tablet tablet atorvastati atorvastati 2018-07 Yes Humza Unknown Unknown n 20 mg n 20 mg 2- ,Gokul tablet tablet carvedilol carvedilol 2018-07 Yes [place] Unknown Unknown 25 mg 25 mg 2- Gokul SALAZAR tablet tablet DILT-XR 120 DILT-XR 120 2018-07 Yes Humza Unknown Unknown mg capsule, mg capsule, 2- ,Gokul extended extended release release isosorbide isosorbide 2018-07 Yes [place] Unknown Unknown mononitrate mononitrate 2- ,Gokul ER 30 mg ER 30 mg tablet,exte tablet,exte nded nded release 24 release 24 hr hr Symbicort Symbicort 2018-07 Yes [place] Unknown Unknown 160 mcg-4.5 160 mcg-4.5 2- Gokul SALAZAR mcg/actuati mcg/actuati on HFA on HFA aerosol aerosol inhaler inhaler Spiriva Spiriva 2018-07 Yes [place] Unknown Unknown with with 2- Gokul SALAZAR HandiHaler HandiHaler 18 mcg and 18 mcg and inhalation inhalation capsules capsules ipratropium ipratropium 2018-07 Yes [place] Unknown Unknown -albuterol -albuterol 2- Gokul SALAZAR 0.5 mg-3 0.5 mg-3 mg(2.5 mg mg(2.5 mg base)/3 mL base)/3 mL nebulizatio nebulizatio n soln n soln finasteride finasteride 2018-07 Yes [place] Unknown Unknown 5 mg tablet 5 mg tablet 2- Gokul SALAZAR sertraline sertraline 2018-07 Yes Humza Unknown Unknown 100 mg 100 mg 2- Gokul SALAZAR tablet tablet tamsulosin tamsulosin 2018-07 Yes Humza Unknown Unknown 0.4 mg 0.4 mg 2- Gokul SALAZAR capsule capsule ondansetron ondansetron 2018-07 Yes [place] Unknown Unknown 4 mg 4 mg 2- Gokul SALAZAR disintegrat disintegrat ing tablet ing tablet simethicone simethicone 2018-07 Yes Humza Unknown Unknown 80 mg 80 mg 2- Gokul SALAZAR chewable chewable tablet tablet omeprazole omeprazole 2018-07 Yes [place] Unknown Unknown 20 mg 20 mg 2 Gokul SALAZAR capsule,del capsule,del ayed ayed release release metFORMIN metFORMIN 2018-07 Yes [place] Unknown Unknown 1,000 mg 1,000 mg 2 Gokul SALAZAR tablet tablet levothyroxi levothyroxi 2018-07 Yes [place] Unknown Unknown ne 50 mcg ne 50 mcg 2 Gokul SALAZAR tablet tablet Lactobac. Lactobac. 2018-07 Yes [place] Unknown Unknown acidophilus acidophilus 08-23 Gokul SALAZAR [...] magnesium) tablet tablet colchicine colchicine 2018-07 Yes [place] Unknown Unknown 0.6 mg 0.6 mg 08-23 Gokul SALAZAR tablet tablet cholecalcif cholecalcif 2018-07 Yes Humza Unknown Unknown murray murray 08-23 Gokul SALAZAR (vitamin (vitamin D3) 1,000 D3) 1,000 unit unit capsule capsule Tums 200 mg Tums 200 mg 2018-07 Yes Humza Unknown Unknown calcium calcium 08-23 Gokul SALAZAR (500 mg) (500 mg) chewable chewable tablet tablet oxygen oxygen 2018-07 Yes [place] Unknown Unknown 08-23 Gokul SALAZAR acetaminoph acetaminoph 2018-07 Yes [place] Unknown Unknown en 500 mg en 500 mg 08-29 Gokul SALAZAR tablet tablet azithromyci azithromyci 2018-07- Yes Humza Unknown Unknown n 250 mg n 250 mg 09-02 Gokul SALAZAR tablet tablet amoxicillin amoxicillin 2018-07- Yes [place] Unknown Unknown [id number] 09-02 Gokul SALAZAR mg-potassiu mg-potassiu m m clavulanate clavulanate 125 mg 125 mg tablet tablet diphenhydrA diphenhydrA 2018-07 Yes Humza Unknown Unknown MINE 25 mg MINE 25 mg 09-02 Gokul SALAZAR tablet tablet Zithromax Zithromax 2018-07- Yes Humza Unknown Unknown 250 mg 250 mg 09-03 ,Gokul tablet tablet Vital Signs Vital Name Observation Time Observation Value Comments SYSTOLIC mm[Hg] 2019-08-02 18:10:05 138 mm[Hg] mm[Hg] Method: Sit SYSTOLIC mm[Hg] 2019-06-22 18:09:24 148 mm[Hg] mm[Hg] Method: Stand DIASTOLIC mm[Hg] 2019-08-02 18:10:05 78 mm[Hg] mm[Hg] Method: Sit DIASTOLIC mm[Hg] 2019-06-22 18:09:24 84 mm[Hg] mm[Hg] Method: Stand PULSE 2019-08-02 18:10:05 60 /min /min RESP RATE 2019-08-02 18:10:05 16 /min /min TEMP 2019-08-02 18:10:05 98.1 [degF] Procedures This patient has no known procedures. Results This patient has no known results.
--- OUTSIDE RECORDS SUMMARY | 2019-08-10 19:16 | XMS REPORT ---
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 Diagnosis Active Abigail (current) (current) Carrier RN [...] 32.0-32.9, adult adult Pain frequent Pain Mgmt Active 2018-07 Mary pain 08-23 [place] 12:28: [id number] 00 Respiratory dyspnea Respirator Active 2018-07 Mary present y 08-23 [place] 12:28: [id number] 00 Respiratory oxygen Respirator Active 2018-07 Mary treatments y 08-23 [place] in home 12:28: [id number] 00 Respiratory lung sounds Respirator Active 2018-07 Mary deficit y 08-23 [place] 12:28: [id number] 00 Endo/Carlos diabetic Endo/Carlos Active 2018-07 Mary foot care 08-23 [place] 12:28: [id number] 00 Sensory impaired Sensory Active 2018-07 Mary hearing 08-23 [place] 12:28: [id number] 00 Integument skin Integument Active 2018-07 Mary integrity 08-23 [place] risk 12:28: [id number] 00 Nutrition nutritional Nutrition Active 2018-07 Mary restriction 08-23 [place] s 12:28: [id number] 00 Elimination catheter Eliminatio Active 2018-07 Mary present n 08-23 [place] 12:28: [id number] 00 Elimination ostomy Eliminatio Resolve 2018-072019-06-24 Mary present n d 08-23 14:35:00 [place] 12:28: [id number] 00 Neuro confusion Neuro/Emot Active 2018-07 Mary present ion 08-23 [place] 12:28: [id number] 00 Activity ADL Activity Active 2018-07 Mary assistance 08-23 [place] required 12:28: [id number] 00 Activity self-care Activity Active 2018-07 Mary deficit - [place] 12:28: [id number] 00 Safety structural Safety Active 2018-07 Mary barriers - [place] present 12:28: [id number] 00 Safety fall risk Safety Active 2018-07 Mary factor - [place] present 12:28: [id number] 00 Safety risk for Safety Active 2018-07 Mary hospitaliza 08-23 [place] tion 12:28: [id number] 00 Safety can be left Safety Active 2018-07 Mary alone for 08-23 [place] only short 12:28: [id number] periods 00 Medication oral med Meds Active 2018-07 Mary assistance 08-23 [place] required 12:28: [id number] 00 Medication knowledge/s Meds Active 2018-07 Mary kill 08-23 [place] deficit: pt 12:28: [id number] 00 Medication knowledge/s Meds Active 2018-07 Mary kill 08-23 [place] deficit: cg 12:28: [id number] 00 Medication potential Meds Active 2018-07 Mary clinically 08-23 [place] significant 12:28: [id number] medication 00 issue Musculoskel transfer Musculoske Active 2018-07 Mary etal assistance letal 08-23 [place] required 12:28: [id number] 00 Musculoskel requires Musculoske Active 2018-07 Mary etal human letal 08-23 [place] assist to 12:28: [id number] leave home 00 Cardio edema Cardiovasc Active 2018-07 Abigail ular 2-19 Carrier RN 14:35: 00 Cardio hypertensio Cardiovasc Active 2018-07 Abigail teague 2-19 Carrier RN 14:35: 00 Respiratory nebulizer Respirator Active 2018-07 Abigail treatment y 2-19 Carrier RN in home 14:35: 00 Integument knowledge/s Integument Active 2018-07 Abigail kill 2-23 Carrier RN deficit: pt 15:25: 00 Integument knowledge/s Integument Active 2018-07 Abigail kill 2-26 Carrier RN deficit: cg 10:55: 00 Social knowledge/s SERGIO: Active 2018-07 Nancy Services kill Social 09-02 [place] deficit - Services 10:00: [id number] pt 00 Social knowledge/s SERGIO: Active 2018-07 Nancy Services kill Social - [place] deficit - Services 10:00: [id number] cg 00 Social knowledge/s SERGIO: Unknown 2018-07 Alicia Potts kill Social 2-30 [place] deficit - Services 13:17: [id number] cg 00 Cardio knowledge/s Cardiovasc Active Abigail kill ular -17 Carrier RN deficit: pt 14:45: 00 Respiratory CPAP Respirator Active Abigail treatments y -17 Carrier RN in home 14:45: 00 Respiratory knowledge/s Respirator Active 2019- Abigail kill y 1-17 Carrier RN deficit: pt 14:45: 00 Respiratory knowledge/s Respirator Active 2019- Abigail kill y -17 Carrier RN deficit: cg 14:45: 00 Elimination recurring Eliminatio Active Abigail UTI n 1-17 Carrier RN 14:45: 00 Elimination UTI within Eliminatio Active Abigail past 14 n -17 Carrier RN days 14:45: 00 Medication inhalant Meds Resolve 2019-07-23 Abigail med d -17 14:45:00 Carrier RN assistance 14:45: required 00 Allergies, Adverse Reactions, Alerts Allergy Allergy Status Severity Reaction(s) Onset Inactive Treating Comments Name Type Date Date Clinician Unknown None Active Unknown None Unknown No Known Allergies For This Patient Medications Ordered Filled Start Stop Current Ordering Indication Dosage Frequency Signature Comments Components Medication Medication Date Date Medication? Clinician (SIG) Name Name furosemide furosemide 2018-07 Yes [place] Unknown Unknown 20 mg 20 mg 2- Gokul SALAZAR tablet tablet thiamine thiamine 2018-07 Yes Humza Unknown Unknown HCl HCl 2- Gokul SALAZAR (vitamin (vitamin B1) 100 mg B1) 100 mg tablet tablet atorvastati atorvastati 2018-07 Yes [place] Unknown Unknown n 20 mg n 20 mg 2- Gokul SALAZAR tablet tablet carvedilol carvedilol 2018-07 Yes [place] Unknown Unknown 25 mg 25 mg 2- Gokul SALAZAR tablet tablet DILT-XR 120 DILT-XR 120 2018-07 Yes Humza Unknown Unknown mg capsule, mg capsule, 2- Gokul SALAZAR extended extended release release isosorbide isosorbide 2018-07 Yes Humza Unknown Unknown mononitrate mononitrate 2- Gokul SALAZAR ER 30 mg ER 30 mg tablet,exte tablet,exte nded nded release 24 release 24 hr hr Symbicort Symbicort 2018-07 Yes [place] Unknown Unknown 160 mcg-4.5 160 mcg-4.5 2-17 [...] SALAZAR tablet tablet tamsulosin tamsulosin 2018-07 Yes [place] Unknown Unknown 0.4 mg 0.4 mg 2 Gokul SALAZAR capsule capsule ondansetron ondansetron 2018-07 Yes Humza Unknown Unknown 4 mg 4 mg 2- Gokul SALAZAR disintegrat disintegrat ing tablet ing tablet simethicone simethicone 2018-07 Yes [place] Unknown Unknown 80 mg 80 mg 2- Gokul SALAZAR chewable chewable tablet tablet omeprazole omeprazole 2018-07 Yes [place] Unknown Unknown 20 mg 20 mg 2- Gokul SALAZAR capsule,del capsule,del ayed ayed release release metFORMIN metFORMIN 2018-07 Yes Humza Unknown Unknown 1,000 mg 1,000 mg 2-17 ,Gokul tablet tablet levothyroxi levothyroxi 2018-07 Yes [place] Unknown Unknown ne 50 mcg ne 50 mcg 2- ,Gokul tablet tablet Lactobac. Lactobac. 2018-07 Yes Humza Unknown Unknown acidophilus acidophilus 2- Gokul SALAZAR -Bifido. -Bifido. animalis 10 animalis 10 billion billion cell cell chewable chewable tablet tablet folic acid folic acid 2018-07 Yes [place] Unknown Unknown 1 mg tablet 1 mg tablet 2-17 MD,Gokul magnesium magnesium 2018-07 Yes Humza Unknown Unknown oxide 400 oxide 400 2- Gokul SALAZAR mg (241.3 mg (241.3 mg mg magnesium) magnesium) tablet tablet colchicine colchicine 2018-07 Yes [facility]za Unknown Unknown 0.6 mg 0.6 mg 2 Gokul SALAZAR tablet tablet cholecalcif cholecalcif 2018-07 Yes [place] Unknown Unknown murray murray 2 Gokul SALAZAR (vitamin (vitamin D3) 1,000 D3) 1,000 unit unit capsule capsule Tums 200 mg Tums 200 mg 2018-07 Yes [place] Unknown Unknown calcium calcium 2 Gokul SALAZAR (500 mg) (500 mg) chewable chewable tablet tablet oxygen oxygen 2018-07 Yes [place] Unknown Unknown 08-23 Gokul SALAZAR acetaminoph acetaminoph 2018-07 Yes [place] Unknown Unknown en 500 mg en 500 mg 08-29 Gokul SALAZAR tablet tablet azithromyci azithromyci 2018-07 Yes [place] Unknown Unknown n 250 mg n 250 mg 09-02 Gokul SALAZAR tablet tablet amoxicillin amoxicillin 2018-07- Yes [place] Unknown Unknown [phone] 09-02 Gokul SALAZAR mg-potassiu mg-potassiu m m clavulanate clavulanate 125 mg 125 mg tablet tablet diphenhydrA diphenhydrA 2018-07 Yes Humza Unknown Unknown MINE 25 mg MINE 25 mg 09-02 Gokul SALAZAR tablet tablet Zithromax Zithromax 2018-07 Yes Humza Unknown Unknown 250 mg 250 mg 09-03 ,Gokul tablet tablet Vital Signs Vital Name Observation Time Observation Value Comments SYSTOLIC mm[Hg] 2019-07-30 18:10:02 122 mm[Hg] mm[Hg] Method: Sit SYSTOLIC mm[Hg] 2019-06-22 18:09:24 148 mm[Hg] mm[Hg] Method: Stand DIASTOLIC mm[Hg] 2019-07-30 18:10:02 60 mm[Hg] mm[Hg] Method: Sit DIASTOLIC mm[Hg] 2019-06-22 18:09:24 84 mm[Hg] mm[Hg] Method: Stand PULSE 2019-07-30 18:10:02 84 /min /min RESP RATE 2019-07-30 18:10:02 18 /min /min TEMP 2019-07-30 18:10:02 98.9 [degF] Procedures This patient has no known procedures. Results This patient has no known results.
--- OUTSIDE RECORDS SUMMARY | 2019-08-10 19:16 | XMS REPORT ---
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 Abigail (current) (current) Carrier [...] Resolve 2018-072019-08-02 Mary pain d 08-23 12:50:00 [place] 12:28: [id number] 00 Respiratory dyspnea Respirator Active 2018-07 Mary present y 08-23 [place] 12:28: [id number] 00 Respiratory oxygen Respirator Active 2018-07 Mary treatments y 08-23 [place] in home 12:28: [id number] 00 Respiratory lung sounds Respirator Active 2018-07 Mary deficit y 08-23 [place] 12:28: [id number] 00 Endo/Carlos diabetic Endo/Carlos Resolve 2018-072019-07-30 Mary foot care d 08-23 10:45:00 [place] 12:28: [id number] 00 Sensory impaired Sensory Active 2018-07 Mary hearing 08-23 [place] 12:28: [id number] 00 Integument skin Integument Active 2018-07 Mary integrity 08-23 [place] risk 12:28: [id number] 00 Nutrition nutritional Nutrition Resolve 2018-072019-07-30 Mary restriction d 08-23 10:45:00 [place] s 12:28: [id number] 00 Elimination catheter Eliminatio Active 2018-07 Mary present n 08-23 [place] 12:28: [id number] 00 Elimination ostomy Eliminatio Resolve 2018-072019-06-24 Mary present n d 08-23 14:35:00 [place] 12:28: [id number] 00 Neuro confusion Neuro/Emot Resolve 2018-072019-08-02 Mary present ion d 08-23 12:50:00 [place] 12:28: [id number] 00 Activity ADL Activity Resolve 2018-072019-08-02 Mary assistance d 2- 12:50:00 [place] required 12:28: [id number] 00 Activity self-care Activity Resolve 2018-072019-07-30 Mary deficit d 2-17 10:45:00 [place] 12:28: [id number] 00 Safety structural Safety Active 2018-07 Mary barriers 08-23 [place] present 12:28: [id number] 00 Safety fall risk Safety Active 2018-07 Mary factor 08-23 [place] present 12:28: [id number] 00 Safety risk for Safety Active 2018-07 Mary hospitaliza 08-23 [place] tion 12:28: [id number] 00 Safety can be left Safety Active 2018-07 Mary alone for 08-23 [place] only short 12:28: [id number] periods 00 Medication oral med Meds Resolve 2018-072019-08-02 Mary assistance d 2- 12:50:00 [place] required 12:28: [id number] 00 Medication knowledge/s Meds Resolve 2018-072019-08-02 Mary kill d 2- 12:50:00 [place] deficit: pt 12:28: [id number] 00 Medication knowledge/s Meds Resolve 2018-072019-08-02 Mary kill d 2- 12:50:00 [place] deficit: cg 12:28: [id number] 00 Medication potential Meds Resolve 2018-072019-08-02 Mary clinically d - 12:50:00 [place] significant 12:28: [id number] medication 00 issue Musculoskel transfer Musculoske Active 2018-07 Mary etal assistance letal 08-23 [place] required 12:28: [id number] 00 Musculoskel requires Musculoske Active 2018-07 Mary etal human letal 08-23 [place] assist to 12:28: [id number] leave home 00 Cardio edema Cardiovasc Active [...] Social 2-27 [place] deficit - Services 10:00: [id number] pt 00 Social knowledge/s SERGIO: Active 2018-07 Nancy Services kill Social 2- [place] deficit - Services 10:00: [id number] cg 00 Social knowledge/s SERGIO: Unknown 2018-07 Alicia Services kill Social 2-30 [place] deficit - Services 13:17: [id number] cg 00 Cardio knowledge/s Cardiovasc Active 2019-0 [...] (SIG) Name Name furosemide furosemide 2018-07 Yes [place] Unknown Unknown 20 mg 20 mg 2-17 Gokul SALAZAR tablet tablet thiamine thiamine 2018-07 Yes [place] Unknown Unknown HCl HCl 2- Gokul SALAZAR (vitamin (vitamin B1) 100 mg B1) 100 mg tablet tablet atorvastati atorvastati 2018-07 Yes Humza Unknown Unknown n 20 mg n 20 mg 2- ,Gokul tablet tablet carvedilol carvedilol 2018-07 Yes [place] Unknown Unknown 25 mg 25 mg 2- Gokul SALAZAR tablet tablet DILT-XR 120 DILT-XR 120 2018-07 Yes Humza Unknown Unknown mg capsule, mg capsule, 2- ,Gokul extended extended release release isosorbide isosorbide 2018-07 Yes [place] Unknown Unknown mononitrate mononitrate 2- ,Gokul ER 30 mg ER 30 mg tablet,exte tablet,exte nded nded release 24 release 24 hr hr Symbicort Symbicort 2018-07 Yes [place] Unknown Unknown 160 mcg-4.5 160 mcg-4.5 2- Gokul SALAZAR mcg/actuati mcg/actuati on HFA on HFA aerosol aerosol inhaler inhaler Spiriva Spiriva 2018-07 Yes [place] Unknown Unknown with with 2- Gokul SALAZAR HandiHaler HandiHaler 18 mcg and 18 mcg and inhalation inhalation capsules capsules ipratropium ipratropium 2018-07 Yes [place] Unknown Unknown -albuterol -albuterol 2- Gokul SALAZAR 0.5 mg-3 0.5 mg-3 mg(2.5 mg mg(2.5 mg base)/3 mL base)/3 mL nebulizatio nebulizatio n soln n soln finasteride finasteride 2018-07 Yes [place] Unknown Unknown 5 mg tablet 5 mg tablet 2- Gokul SALAZAR sertraline sertraline 2018-07 Yes Humza Unknown Unknown 100 mg 100 mg 2- Gokul SALZAAR tablet tablet tamsulosin tamsulosin 2018-07 Yes Humza Unknown Unknown 0.4 mg 0.4 mg 2- Gokul SALAZAR capsule capsule ondansetron ondansetron 2018-07 Yes [place] Unknown Unknown 4 mg 4 mg 2- Gokul SALAZAR disintegrat disintegrat ing tablet ing tablet simethicone simethicone 2018-07 Yes Humza Unknown Unknown 80 mg 80 mg 2- Gokul SALAZAR chewable chewable tablet tablet omeprazole omeprazole 2018-07 Yes [place] Unknown Unknown 20 mg 20 mg 2 Gokul SALAZAR capsule,del capsule,del ayed ayed release release metFORMIN metFORMIN 2018-07 Yes [place] Unknown Unknown 1,000 mg 1,000 mg 2 Gokul SALAZAR tablet tablet levothyroxi levothyroxi 2018-07 Yes [place] Unknown Unknown ne 50 mcg ne 50 mcg 2 Gokul SALAZAR tablet tablet Lactobac. Lactobac. 2018-07 Yes [place] Unknown Unknown acidophilus acidophilus 08-23 Gokul SALAZAR [...] magnesium) tablet tablet colchicine colchicine 2018-07 Yes [place] Unknown Unknown 0.6 mg 0.6 mg 08-23 Gokul SALAZAR tablet tablet cholecalcif cholecalcif 2018-07 Yes Humza Unknown Unknown murray murray 08-23 Gokul SALAZAR (vitamin (vitamin D3) 1,000 D3) 1,000 unit unit capsule capsule Tums 200 mg Tums 200 mg 2018-07 Yes Humza Unknown Unknown calcium calcium 08-23 Gokul SALAZAR (500 mg) (500 mg) chewable chewable tablet tablet oxygen oxygen 2018-07 Yes [place] Unknown Unknown 08-23 Gokul SALAZAR acetaminoph acetaminoph 2018-07 Yes [place] Unknown Unknown en 500 mg en 500 mg 08-29 Gokul SALAZAR tablet tablet azithromyci azithromyci 2018-07- Yes Humza Unknown Unknown n 250 mg n 250 mg 09-02 Gokul SALAZAR tablet tablet amoxicillin amoxicillin 2018-07- Yes [place] Unknown Unknown [id number] 09-02 Gokul SALAZAR [...]
--- OUTSIDE RECORDS SUMMARY | 2019-08-10 19:16 | XMS REPORT ---
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 Abigail (current) [...] Pain Mgmt Active 2018-07 Mary pain 2-17 [place] 12:28: [id number] 00 Respiratory dyspnea Respirator Active 2018-07 Mary present y 08-23 [place] 12:28: [id number] 00 Respiratory oxygen Respirator Active 2018-07 Mary treatments y 08-23 [place] in home 12:28: [id number] 00 Respiratory lung sounds Respirator Active 2018-07 Mary deficit y 08-23 [place] 12:28: [id number] 00 Endo/Carlos diabetic Endo/Carlos Active 2018-07 Mary foot care 08-23 [place] 12:28: [id number] 00 Sensory impaired Sensory Active 2018-07 Mary hearing 08-23 [place] 12:28: [id number] 00 Integument skin Integument Active 2018-07 Mary integrity 08-23 [place] risk 12:28: [id number] 00 Nutrition nutritional Nutrition Active 2018-07 Mary restriction 08-23 [place] s 12:28: [id number] 00 Elimination catheter Eliminatio Active 2018-07 Mary present n 08-23 [place] 12:28: [id number] 00 Elimination ostomy Eliminatio Resolve 2018-072019-06-24 Mary present n d 08-23 14:35:00 [place] 12:28: [id number] 00 Neuro confusion Neuro/Emot Active 2018-07 Mary present ion 08-23 [place] 12:28: [id number] 00 Activity ADL Activity Active 2018-07 Mary assistance 08-23 [place] required 12:28: [id number] 00 Activity self-care Activity Active 2018-07 Mary deficit 08-23 [place] 12:28: [id number] 00 Safety structural Safety Active 2018-07 Mary barriers 08-23 [place] present 12:28: [id number] 00 Safety fall risk Safety Active 2018-07 Mary factor 08-23 [place] present 12:28: [id number] 00 Safety risk for Safety Active 2018-07 Mary hospitaliza 08-23 [place] tion 12:28: [id number] 00 Safety can be left Safety Active 2018-07 Mary alone for 08-23 [place] only short 12:28: [id number] periods 00 Medication oral med Meds Active 2018-07 Mary assistance 08-23 [place] required 12:28: [id number] 00 Medication knowledge/s Meds Active 2018-07 Mary kill 08-23 [place] deficit: pt 12:28: [id number] 00 Medication knowledge/s Meds Active 2018-07 Mary garcia 2-17 [place] deficit: cg 12:28: [id number] 00 Medication potential Meds Active 2018-07 Mary clinically 2-17 [place] significant 12:28: [id number] medication 00 issue Musculoskel transfer Musculoske Active 2018-07 Mary etal assistance letal 2-17 [place] required 12:28: [id number] 00 Musculoskel requires Musculoske Active 2018-07 Mary etal human letal 2-17 [place] assist to 12:28: [id number] leave home 00 Cardio edema Cardiovasc Active [...] Social 2-27 [place] deficit - Services 10:00: [id number] pt 00 Social knowledge/s SERGIO: Active 2018-07 Nancy Services kill Social 2-27 [place] deficit - Services 10:00: [id number] cg 00 Social knowledge/s SERGIO: Unknown 2018-07 Alicia Services kill Social 2-30 [place] deficit - Services 13:17: [id number] cg 00 Respiratory CPAP Respirator Active Abigail treatments y 1-17 Carrier RN in home 14:45: 00 Allergies, Adverse Reactions, Alerts Allergy Allergy [...] mg tablet tablet atorvastati atorvastati 2018-07 Yes [place] Unknown Unknown n 20 mg n 20 mg 2- ,Gokul tablet tablet carvedilol carvedilol 2018-07 Yes [place] Unknown Unknown 25 mg 25 mg 2- Gokul SALAZAR tablet tablet DILT-XR 120 DILT-XR 120 2018-07 Yes [place] Unknown Unknown mg capsule, mg capsule, 2- ,Gokul extended extended release release isosorbide isosorbide 2018-07 Yes Humza Unknown Unknown mononitrate mononitrate 2- Gokul SALAZAR ER 30 mg ER 30 mg tablet,exte tablet,exte nded nded release 24 release 24 hr hr Symbicort Symbicort 2018-07 Yes [place] Unknown Unknown 160 mcg-4.5 160 mcg-4.5 2- Gokul SALAZAR mcg/actuati mcg/actuati on HFA on HFA aerosol aerosol inhaler inhaler Spiriva Spiriva 2018-07 Yes [place] Unknown Unknown with with 2- Gokul SALAZAR HandiHaler HandiHaler 18 mcg and 18 mcg and inhalation inhalation capsules capsules ipratropium ipratropium 2018-07 Yes [place] Unknown Unknown -albuterol -albuterol 2- Gokul SALAZAR 0.5 mg-3 0.5 mg-3 mg(2.5 mg mg(2.5 mg base)/3 mL base)/3 mL nebulizatio nebulizatio n soln n soln finasteride finasteride 2018-07 Yes [place] Unknown Unknown 5 mg tablet 5 mg [...] tablet ing tablet simethicone simethicone 2018-07 Yes [place] Unknown Unknown 80 mg 80 mg 2- Gokul SALAZAR chewable chewable tablet tablet omeprazole omeprazole 2018-07 Yes [place] Unknown Unknown 20 mg 20 mg 2 Gokul SALAZAR capsule,del capsule,del ayed ayed release release metFORMIN metFORMIN 2018-07 Yes Humza Unknown Unknown 1,000 mg 1,000 mg 2 Gokul SALAZAR tablet tablet levothyroxi levothyroxi 2018-07 Yes Humza Unknown Unknown ne 50 mcg ne 50 mcg 2 Gokul SALAZAR tablet tablet Lactobac. Lactobac. 2018-07 Yes [place] Unknown Unknown acidophilus acidophilus 08-23 Gokul SALAZAR [...] magnesium) tablet tablet colchicine colchicine 2018-07 Yes [place] Unknown Unknown 0.6 mg 0.6 mg 08-23 Gokul SALAZAR tablet tablet cholecalcif cholecalcif 2018-07 Yes [place] Unknown Unknown murray murray 08-23 Gokul SALAZAR (vitamin (vitamin D3) 1,000 D3) 1,000 unit unit capsule capsule Tums 200 mg Tums 200 mg 2018-07 Yes [place] Unknown Unknown calcium calcium 08-23 Gokul SALAZAR (500 mg) (500 mg) chewable chewable tablet tablet oxygen oxygen 2018-07 Yes Humza Unknown Unknown 08-23 Gokul SALAZAR acetaminoph acetaminoph 2018-07 Yes [place] Unknown Unknown en 500 mg en 500 mg 08-29 Gokul SALAZAR tablet tablet azithromyci azithromyci 2018-07- Yes [place] Unknown Unknown n 250 mg n 250 mg 09-02 Gokul SALAZAR tablet tablet amoxicillin amoxicillin 2018-07 Yes [place] Unknown Unknown [id number] 09-02 Gokul SALAZAR mg-potassiu mg-potassiu m m clavulanate clavulanate 125 mg 125 mg tablet tablet diphenhydrA diphenhydrA 2018-07 Yes [place] Unknown Unknown MINE 25 mg MINE 25 mg 09-02 Gokul SALAZAR tablet tablet Zithromax Zithromax 2018-07 Yes [place] Unknown Unknown 250 mg 250 mg 09-03 Gokul SALAZAR tablet tablet Vital Signs Vital Name Observation Time Observation Value Comments SYSTOLIC mm[Hg] 2019-07-23 18:09:55 118 mm[Hg] mm[Hg] Method: Sit SYSTOLIC mm[Hg] 2019-06-22 18:09:24 148 mm[Hg] mm[Hg] Method: Stand DIASTOLIC mm[Hg] 2019-07-23 18:09:55 60 mm[Hg] mm[Hg] Method: Sit DIASTOLIC mm[Hg] 2019-06-22 18:09:24 84 mm[Hg] mm[Hg] Method: Stand PULSE 2019-07-23 18:09:55 60 /min /min RESP RATE 2019-07-23 18:09:55 16 /min /min TEMP 2019-07-23 18:09:55 97.5 [degF] Procedures This patient has no known procedures. Results This patient has no known results.
--- OUTSIDE RECORDS SUMMARY | 2019-08-10 19:16 | XMS REPORT ---
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) (current) 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 use of use of inhaled inhaled steroids 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 Diagnosis Active Abigail (current) (current) Carrier [...] Pain Mgmt Active 2018-07 Mary pain 08-23 [facility] 12:28: [id number] Respiratory dyspnea Respirator Active 2018-07 Mary present y 08-23 [facility] 12:28: [id number] 00 Respiratory oxygen Respirator Active 2018-07 Mary treatments y 08-23 [facility] in home 12:28: [id number] 00 Respiratory lung sounds Respirator Active 2018-07 Mary deficit y 08-23 [facility] 12:28: [id number] 00 Endo/Carlos diabetic Endo/Carlos Active 2018-07 Mary foot care 08-23 [facility] 12:28: [id number] 00 Sensory impaired Sensory Active 2018-07 Mary hearing 08-23 [facility] 12:28: [id number] 00 Integument skin Integument Active 2018-07 Mary integrity 08-23 [facility] risk 12:28: [id number] 00 Nutrition nutritional Nutrition Active 2018-07 Mary restriction 08-23 [facility] s 12:28: [id number] 00 Elimination catheter Eliminatio Active 2018-07 Mary present n 08-23 [facility] 12:28: [id number] 00 Elimination ostomy Eliminatio Resolve 2018-072019-06-24 Mary present n d 08-23 14:35:00 [facility] 12:28: [id number] 00 Neuro confusion Neuro/Emot Active 2018-07 Mary present ion 08-23 [facility] 12:28: [id number] 00 Activity ADL Activity Active 2018-07 Mary assistance 08-23 [facility] required 12:28: [id number] 00 Activity self-care Activity Active 2018-07 Mary deficit - [facility] 12:28: [id number] 00 Safety structural Safety Active 2018-07 Mary barriers - [facility] present 12:28: [id number] 00 Safety fall risk Safety Active 2018-07 Mary factor - [facility] present 12:28: [id number] 00 Safety risk for Safety Active 2018-07 Mary hospitaliza 08-23 [facility] tion 12:28: [id number] 00 Safety can be left Safety Active 2018-07 Mary alone for 08-23 [facility] only short 12:28: [id number] periods 00 Medication oral med Meds Active 2018-07 Mary assistance 08-23 [facility] required 12:28: [id number] 00 Medication knowledge/s Meds Active 2018-07 Mary kill 08-23 [facility] deficit: pt 12:28: [id number] 00 Medication knowledge/s Meds Active 2018-07 Mary kill 08-23 [facility] deficit: cg 12:28: [id number] 00 Medication potential Meds Active 2018-07 Mary clinically 08-23 [facility] significant 12:28: [id number] medication 00 issue Musculoskel transfer Musculoske Active 2018-07 Mary etal assistance letal 08-23 [facility] required 12:28: [id number] 00 Musculoskel requires Musculoske Active 2018-07 Mary etal human letal 08-23 [facility] assist to 12:28: [id number] leave home 00 Cardio edema Cardiovasc Active [...] Social 09-02 [place] deficit - Services 10:00: [id number] pt 00 Social knowledge/s SERGIO: Active 2018-07 Nancy Services kill Social - [place] deficit - Services 10:00: [id number] cg 00 Social knowledge/s SERGIO: Unknown 2018-07 Alicia Potts kill Social 2-30 [place] deficit - Services 13:17: [id number] cg 00 Cardio knowledge/s Cardiovasc Active Abigail kill ular -17 Carrier RN deficit: pt 14:45: 00 Respiratory CPAP Respirator Active Abigial treatments y -17 Carrier RN in home [...] (SIG) Name Name furosemide furosemide 2018-07 Yes [place] Unknown Unknown 20 mg 20 mg 2- Gokul SALAZAR tablet tablet thiamine thiamine 2018-07 Yes Humza Unknown Unknown HCl HCl 2- Gokul SALAZAR (vitamin (vitamin B1) 100 mg B1) 100 mg tablet tablet atorvastati atorvastati 2018-07 Yes [place] Unknown Unknown n 20 mg n 20 mg 2- Gokul SALAZAR tablet tablet carvedilol carvedilol 2018-07 Yes [place] Unknown Unknown 25 mg 25 mg 2- Gokul SALAZAR tablet tablet DILT-XR 120 DILT-XR 120 2018-07 Yes Humza Unknown Unknown mg capsule, mg capsule, 2- Gokul SALAZAR extended extended release release isosorbide isosorbide 2018-07 Yes Humza Unknown Unknown mononitrate mononitrate 2- Gokul SALAZAR ER 30 mg ER 30 mg tablet,exte tablet,exte nded nded release 24 release 24 hr hr Symbicort Symbicort 2018-07 Yes [place] Unknown Unknown 160 mcg-4.5 160 mcg-4.5 2-17 [...] SALAZAR tablet tablet tamsulosin tamsulosin 2018-07 Yes [place] Unknown Unknown 0.4 mg 0.4 mg 2 Gokul SALAZAR capsule capsule ondansetron ondansetron 2018-07 Yes Humza Unknown Unknown 4 mg 4 mg 2- Gokul SALAZAR disintegrat disintegrat ing tablet ing tablet simethicone simethicone 2018-07 Yes [place] Unknown Unknown 80 mg 80 mg 2- Gokul SALAZAR chewable chewable tablet tablet omeprazole omeprazole 2018-07 Yes [place] Unknown Unknown 20 mg 20 mg 2- Gokul SALAZAR capsule,del capsule,del ayed ayed release release metFORMIN metFORMIN 2018-07 Yes Humza Unknown Unknown 1,000 mg 1,000 mg 2-17 ,Gokul tablet tablet levothyroxi levothyroxi 2018-07 Yes [place] Unknown Unknown ne 50 mcg ne 50 mcg 2- ,Gokul tablet tablet Lactobac. Lactobac. 2018-07 Yes Humza Unknown Unknown acidophilus acidophilus 2- Gokul SALAZAR -Bifido. -Bifido. animalis 10 animalis 10 billion billion cell cell chewable chewable tablet tablet folic acid folic acid 2018-07 Yes [place] Unknown Unknown 1 mg tablet 1 mg tablet 2-17 MD,Gokul magnesium magnesium 2018-07 Yes Humza Unknown Unknown oxide 400 oxide 400 2- Gokul SALAZAR mg (241.3 mg (241.3 mg mg magnesium) magnesium) tablet tablet colchicine colchicine 2018-07 Yes Humza Unknown Unknown 0.6 mg 0.6 mg 2 Gokul SALAZAR tablet tablet cholecalcif cholecalcif 2018-07 Yes [place] Unknown Unknown murray murray 2 Gokul SALAZAR (vitamin (vitamin D3) 1,000 D3) 1,000 unit unit capsule capsule Tums 200 mg Tums 200 mg 2018-07 Yes [place] Unknown Unknown calcium calcium 2 Gokul SALAZAR (500 mg) (500 mg) chewable chewable tablet tablet oxygen oxygen 2018-07 Yes [place] Unknown Unknown 08-23 Gokul SALAZAR acetaminoph acetaminoph 2018-07 Yes [place] Unknown Unknown en 500 mg en 500 mg 08-29 Gokul SALAZAR tablet tablet azithromyci azithromyci 2018-07 Yes [place] Unknown Unknown n 250 mg n 250 mg 09-02 Gokul SALAZAR tablet tablet amoxicillin amoxicillin 2018-07- Yes [place] Unknown Unknown [id number] 09-02 Gokul SALAZAR [...]
--- OUTSIDE RECORDS SUMMARY | 2019-08-10 19:16 | XMS REPORT ---
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 Abigail (current) (current) Carrier [...] Pain Mgmt Active 2018-07 Mary pain 2-17 [place] 12:28: [id number] Respiratory dyspnea Respirator Active 2018-07 Mary present y 08-23 [place] 12:28: [id number] 00 Respiratory oxygen Respirator Active 2018-07 Mary treatments y 08-23 [place] in home 12:28: [id number] 00 Respiratory lung sounds Respirator Active 2018-07 Mary deficit y 08-23 [place] 12:28: [id number] 00 Endo/Carlos diabetic Endo/Carlos Active 2018-07 Mary foot care 08-23 [place] 12:28: [id number] 00 Sensory impaired Sensory Active 2018-07 Mary hearing 08-23 [place] 12:28: [id number] 00 Integument skin Integument Active 2018-07 Mary integrity 08-23 [place] risk 12:28: [id number] 00 Nutrition nutritional Nutrition Active 2018-07 Mary restriction 08-23 [place] s 12:28: [id number] 00 Elimination catheter Eliminatio Active 2018-07 Mary present n 08-23 [place] 12:28: [id number] 00 Elimination ostomy Eliminatio Resolve 2018-072019-06-24 Mary present n d 08-23 14:35:00 [place] 12:28: [id number] 00 Neuro confusion Neuro/Emot Active 2018-07 Mary present ion 08-23 [place] 12:28: [id number] 00 Activity ADL Activity Active 2018-07 Mary assistance 08-23 [place] required 12:28: [id number] 00 Activity self-care Activity Active 2018-07 Mary deficit 08-23 [place] 12:28: [id number] 00 Safety structural Safety Active 2018-07 Mary barriers 08-23 [place] present 12:28: [id number] 00 Safety fall risk Safety Active 2018-07 Mary factor 08-23 [place] present 12:28: [id number] 00 Safety risk for Safety Active 2018-07 Mary hospitaliza 08-23 [place] tion 12:28: [id number] 00 Safety can be left Safety Active 2018-07 Mary alone for 08-23 [place] only short 12:28: [id number] periods 00 Medication oral med Meds Active 2018-07 Mary assistance 08-23 [place] required 12:28: [id number] 00 Medication knowledge/s Meds Active 2018-07 Mary kill 08-23 [place] deficit: pt 12:28: [id number] 00 Medication knowledge/s Meds Active 2018-07 Mary garcia 2-17 [place] deficit: cg 12:28: [id number] 00 Medication potential Meds Active 2018-07 Mary clinically 2-17 [place] significant 12:28: [id number] medication 00 issue Musculoskel transfer Musculoske Active 2018-07 Mary etal assistance letal 2-17 [place] required 12:28: [id number] 00 Musculoskel requires Musculoske Active 2018-07 Mary etal human letal 2-17 [place] assist to 12:28: [id number] leave home 00 Cardio edema Cardiovasc Active [...] Social 2-27 [place] deficit - Services 10:00: [id number] pt 00 Social knowledge/s SERGIO: Active 2018-07 Nancy Services kill Social 2-27 [place] deficit - Services 10:00: [id number] cg 00 Social knowledge/s SERGIO: Unknown 2018-07 Alicia Services kill Social 2-30 [place] deficit - Services 13:17: [id number] cg 00 Respiratory CPAP Respirator Active Abigail [...] mg tablet tablet atorvastati atorvastati 2018-07 Yes [place] Unknown Unknown n 20 mg n 20 mg 2- ,Gokul tablet tablet carvedilol carvedilol 2018-07 Yes [place] Unknown Unknown 25 mg 25 mg 2- Gokul SALAZAR tablet tablet DILT-XR 120 DILT-XR 120 2018-07 Yes [place] Unknown Unknown mg capsule, mg capsule, 2- ,Gokul extended extended release release isosorbide isosorbide 2018-07 Yes Humza Unknown Unknown mononitrate mononitrate 2- Gokul SALAZAR ER 30 mg ER 30 mg tablet,exte tablet,exte nded nded release 24 release 24 hr hr Symbicort Symbicort 2018-07 Yes [place] Unknown Unknown 160 mcg-4.5 160 mcg-4.5 2- Gokul SALAZAR mcg/actuati mcg/actuati on HFA on HFA aerosol aerosol inhaler inhaler Spiriva Spiriva 2018-07 Yes [place] Unknown Unknown with with 2- Gokul SALAZAR HandiHaler HandiHaler 18 mcg and 18 mcg and inhalation inhalation capsules capsules ipratropium ipratropium 2018-07 Yes [place] Unknown Unknown -albuterol -albuterol 2- Gokul SALAZAR 0.5 mg-3 0.5 mg-3 mg(2.5 mg mg(2.5 mg base)/3 mL base)/3 mL nebulizatio nebulizatio n soln n soln finasteride finasteride 2018-07 Yes [place] Unknown Unknown 5 mg tablet 5 mg [...] tablet ing tablet simethicone simethicone 2018-07 Yes [place] Unknown Unknown 80 mg 80 mg 2- Gokul SALAZAR chewable chewable tablet tablet omeprazole omeprazole 2018-07 Yes [place] Unknown Unknown 20 mg 20 mg 2 Gokul SALAZAR capsule,del capsule,del ayed ayed release release metFORMIN metFORMIN 2018-07 Yes Humza Unknown Unknown 1,000 mg 1,000 mg 2 Gokul SALAZAR tablet tablet levothyroxi levothyroxi 2018-07 Yes Humza Unknown Unknown ne 50 mcg ne 50 mcg 2 Gokul SALAZAR tablet tablet Lactobac. Lactobac. 2018-07 Yes Humza Unknown Unknown acidophilus acidophilus 08-23 Gokul SALAZAR [...] magnesium) tablet tablet colchicine colchicine 2018-07 Yes [place] Unknown Unknown 0.6 mg 0.6 mg 08-23 Gokul SALAZAR tablet tablet cholecalcif cholecalcif 2018-07 Yes [place] Unknown Unknown murray murray 08-23 Gokul SALAZAR (vitamin (vitamin D3) 1,000 D3) 1,000 unit unit capsule capsule Tums 200 mg Tums 200 mg 2018-07 Yes [place] Unknown Unknown calcium calcium 08-23 Gokul SALAZAR (500 mg) (500 mg) chewable chewable tablet tablet oxygen oxygen 2018-07 Yes Humza Unknown Unknown 08-23 Gokul SALAZAR acetaminoph acetaminoph 2018-07 Yes [place] Unknown Unknown en 500 mg en 500 mg 08-29 Gokul SALAZAR tablet tablet azithromyci azithromyci 2018-07- Yes [place] Unknown Unknown n 250 mg n 250 mg 09-02 Gokul SALAZAR tablet tablet amoxicillin amoxicillin 2018-07 Yes [place] Unknown Unknown [id number] 09-02 Gokul SALAZAR mg-potassiu mg-potassiu m m clavulanate clavulanate 125 mg 125 mg tablet tablet diphenhydrA diphenhydrA 2018-07 Yes Marcell Unknown Unknown MINE 25 mg MINE 25 mg 09-02 Gokul SALAZAR tablet tablet Zithromax Zithromax 2018-07 Yes Marcell Unknown Unknown 250 mg 250 mg 09-03 [...]
--- OUTSIDE RECORDS SUMMARY | 2019-08-10 19:16 | XMS REPORT ---
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 Abigail (current) (current) Carrier RN [...] Pain Mgmt Active 2018-07 Mary pain 2-17 [place] 12:28: [id number] 00 Respiratory dyspnea Respirator Active 2018-07 Mary present y 08-23 [place] 12:28: [id number] 00 Respiratory oxygen Respirator Active 2018-07 Mary treatments y 08-23 [place] in home 12:28: [id number] 00 Respiratory lung sounds Respirator Active 2018-07 Mary deficit y 08-23 [place] 12:28: [id number] 00 Endo/Carlos diabetic Endo/Carlos Active 2018-07 Mary foot care 08-23 [place] 12:28: [id number] 00 Sensory impaired Sensory Active 2018-07 Mary hearing 08-23 [place] 12:28: [id number] 00 Integument skin Integument Active 2018-07 Mary integrity 08-23 [place] risk 12:28: [id number] 00 Nutrition nutritional Nutrition Active 2018-07 Mary restriction 08-23 [place] s 12:28: [id number] 00 Elimination catheter Eliminatio Active 2018-07 Mary present n 08-23 [place] 12:28: [id number] 00 Elimination ostomy Eliminatio Resolve 2018-072019-06-24 Mary present n d 08-23 14:35:00 [place] 12:28: [id number] 00 Neuro confusion Neuro/Emot Active 2018-07 Mary present ion 08-23 [place] 12:28: [id number] 00 Activity ADL Activity Active 2018-07 Mary assistance 08-23 [place] required 12:28: [id number] 00 Activity self-care Activity Active 2018-07 Mary deficit 08-23 [place] 12:28: [id number] 00 Safety structural Safety Active 2018-07 Mary barriers 08-23 [place] present 12:28: [id number] 00 Safety fall risk Safety Active 2018-07 Mary factor 08-23 [place] present 12:28: [id number] 00 Safety risk for Safety Active 2018-07 Mary hospitaliza 08-23 [place] tion 12:28: [id number] 00 Safety can be left Safety Active 2018-07 Mary alone for 08-23 [place] only short 12:28: [id number] periods 00 Medication oral med Meds Active 2018-07 Mary assistance 08-23 [place] required 12:28: [id number] 00 Medication knowledge/s Meds Active 2018-07 Mary kill 08-23 [place] deficit: pt 12:28: [id number] 00 Medication knowledge/s Meds Active 2018-07 Mary garcia 2-17 [place] deficit: cg 12:28: [id number] 00 Medication potential Meds Active 2018-07 Mary clinically 2-17 [place] significant 12:28: [id number] medication 00 issue Musculoskel transfer Musculoske Active 2018-07 Mary etal assistance letal -17 [place] required 12:28: [id number] 00 Musculoskel requires Musculoske Active 2018-07 Mary etal human letal 2-17 [place] assist to 12:28: [id number] leave home 00 Cardio edema Cardiovasc Active [...] Social 2-27 [place] deficit - Services 10:00: [id number] pt 00 Social knowledge/s SERGIO: Active 2018-07 Nancy Services kill Social 2-27 [place] deficit - Services 10:00: [id number] cg 00 Social knowledge/s SERGIO: Unknown 2018-07 Alicia Services kill Social 2-30 [place] deficit - Services 13:17: [id number] cg 00 Allergies, Adverse Reactions, Alerts Allergy [...] Unknown 20 mg 20 mg 2- Gokul SALZAAR tablet tablet thiamine thiamine 2018-07 Yes Humza Unknown Unknown HCl HCl 2-17 Gokul SALAZAR (vitamin (vitamin B1) 100 mg B1) 100 mg tablet tablet atorvastati atorvastati 2018-07 Yes Humza Unknown Unknown n 20 mg n 20 mg 2-17 ,Gokul tablet tablet carvedilol carvedilol 2018-07 Yes [place] Unknown Unknown 25 mg 25 mg 2-17 ,Gokul tablet tablet DILT-XR 120 DILT-XR 120 2018-07 Yes Humza Unknown Unknown mg capsule, mg capsule, 2-17 ,Gokul extended extended release release isosorbide isosorbide 2018-07 Yes [place] Unknown Unknown mononitrate mononitrate 2-17 MD,Gokul ER 30 mg ER 30 mg tablet,exte tablet,exte nded nded release 24 release 24 hr hr Symbicort Symbicort 2018-07 Yes [place] Unknown Unknown 160 mcg-4.5 160 mcg-4.5 2-17 [...] ,Gokul capsule capsule ondansetron ondansetron 2018-07 Yes [place] Unknown Unknown 4 mg 4 mg 2-17 Gokul SALAZAR disintegrat disintegrat ing tablet ing tablet simethicone simethicone 2018-07 Yes [place] Unknown Unknown 80 mg 80 mg 2-17 [...] mg tablet 1 mg tablet 2- Gokul SALAAZR magnesium magnesium 2018-07 Yes [place] Unknown Unknown oxide 400 oxide 400 08-23 Gokul SALAZAR mg (241.3 mg (241.3 mg mg magnesium) magnesium) tablet tablet colchicine colchicine 2018-07 Yes [place] Unknown Unknown 0.6 mg 0.6 mg 2 [...] mg tablet tablet diphenhydrA diphenhydrA 2018-07 Yes [place] Unknown Unknown MINE 25 mg MINE 25 mg 09-02 Gokul SALAZAR tablet tablet Zithromax Zithromax 2018-07 Yes [place] Unknown Unknown 250 mg 250 mg 09-03 [...] 2019-07-13 18:09:45 72 /min /min RESP RATE 2019-07-15 18:09:47 16 /min /min TEMP 2019-07-13 18:09:45 98.2 [degF] Procedures This patient has no known procedures. Results This patient has no known results.
--- OUTSIDE RECORDS SUMMARY | 2019-08-10 19:16 | XMS REPORT ---
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 halfway Diagnosis Active Abigail (current) (current) Carrier [...] Resolve 2018-072019-08-02 Mary pain d 08-23 12:50:00 [place] 12:28: [id number] 00 Respiratory dyspnea Respirator Active 2018-07 Mary present y 08-23 [place] 12:28: [id number] 00 Respiratory oxygen Respirator Active 2018-07 Mary treatments y 08-23 [place] in home 12:28: [id number] 00 Respiratory lung sounds Respirator Active 2018-07 Mary deficit y 08-23 [place] 12:28: [id number] 00 Endo/Carlos diabetic Endo/Carlos Resolve 2018-072019-07-30 Mary foot care d 08-23 10:45:00 [place] 12:28: [id number] 00 Sensory impaired Sensory Active 2018-07 Mary hearing 08-23 [place] 12:28: [id number] 00 Integument skin Integument Active 2018-07 Mary integrity 08-23 [place] risk 12:28: [id number] Nutrition nutritional Nutrition Resolve 2018-072019-07-30 Mary restriction d 08-23 10:45:00 [place] s 12:28: [id number] 00 Elimination catheter Eliminatio Active 2018-07 Mary present n 08-23 [place] 12:28: [id number] 00 Elimination ostomy Eliminatio Resolve 2018-072019-06-24 Mary present n d 08-23 14:35:00 [place] 12:28: [id number] 00 Neuro confusion Neuro/Emot Resolve 2018-072019-08-02 Mary present ion d 08-23 12:50:00 [place] 12:28: [id number] 00 Activity ADL Activity Resolve 2018-072019-08-02 Mary assistance d 2- 12:50:00 [place] required 12:28: [id number] 00 Activity self-care Activity Resolve 2018-072019-07-30 Mary deficit d 2-17 10:45:00 [place] 12:28: [id number] 00 Safety structural Safety Active 2018-07 Mary barriers 08-23 [place] present 12:28: [id number] 00 Safety fall risk Safety Active 2018-07 Mary factor 08-23 [place] present 12:28: [id number] 00 Safety risk for Safety Active 2018-07 Mary hospitaliza 08-23 [place] tion 12:28: [id number] 00 Safety can be left Safety Active 2018-07 Mary alone for 08-23 [place] only short 12:28: [id number] periods 00 Medication oral med Meds Resolve 2018-072019-08-02 Mary assistance d 2- 12:50:00 [place] required 12:28: [id number] 00 Medication knowledge/s Meds Resolve 2018-072019-08-02 Mary kill d 2- 12:50:00 [place] deficit: pt 12:28: [id number] 00 Medication knowledge/s Meds Resolve 2018-072019-08-02 Mary kill d 2- 12:50:00 [place] deficit: cg 12:28: [id number] 00 Medication potential Meds Resolve 2018-072019-08-02 Mary clinically d - 12:50:00 [place] significant 12:28: [id number] medication 00 issue Musculoskel transfer Musculoske Active 2018-07 Mary etal assistance letal 08-23 [place] required 12:28: [id number] 00 Musculoskel requires Musculoske Active 2018-07 Mary etal human letal 08-23 [place] assist to 12:28: [id number] leave home 00 Cardio edema Cardiovasc Active 2018-07 Abigail ular 2-19 Carrier RN 14:35: 00 Cardio hypertensio Cardiovasc Active 2018-07 Abigail n ular 2-19 Carrier RN 14:35: 00 Respiratory nebulizer Respirator Active 2018-07 Abigali treatment y 2-19 Carrier RN in home 14:35: 00 Integument knowledge/s Integument Active 2018-07 Abigail kill 2-23 Carrier RN deficit: pt 15:25: 00 Integument knowledge/s Integument Active 2018-07 Abigail kill 2-26 Carrier RN deficit: cg 10:55: 00 Social knowledge/s SERGIO: Active 2018-07 Nancy Services kill Social 2-27 [place] deficit - Services 10:00: [id number] pt 00 Social knowledge/s SERGIO: Active 2018-07 Nancy Services kill Social 2- [place] deficit - Services 10:00: [id number] cg 00 Social knowledge/s SERGIO: Unknown 2018-07 Alicia Services kill Social 2-30 [place] deficit - Services 13:17: [id number] cg 00 Cardio knowledge/s Cardiovasc Active 2019-0 [...] (SIG) Name Name furosemide furosemide 2018-07 Yes [place] Unknown Unknown 20 mg 20 mg 2-17 Gokul SALAZAR tablet tablet thiamine thiamine 2018-07 Yes [place] Unknown Unknown HCl HCl 2- Gokul SALAZAR (vitamin (vitamin B1) 100 mg B1) 100 mg tablet tablet atorvastati atorvastati 2018-07 Yes Humza Unknown Unknown n 20 mg n 20 mg 2- ,Gokul tablet tablet carvedilol carvedilol 2018-07 Yes [place] Unknown Unknown 25 mg 25 mg 2- Gokul SALAZAR tablet tablet DILT-XR 120 DILT-XR 120 2018-07 Yes Humza Unknown Unknown mg capsule, mg capsule, 2- ,Gokul extended extended release release isosorbide isosorbide 2018-07 Yes [place] Unknown Unknown mononitrate mononitrate 2- ,Gokul ER 30 mg ER 30 mg tablet,exte tablet,exte nded nded release 24 release 24 hr hr Symbicort Symbicort 2018-07 Yes [place] Unknown Unknown 160 mcg-4.5 160 mcg-4.5 2- Gokul SALAZAR mcg/actuati mcg/actuati on HFA on HFA aerosol aerosol inhaler inhaler Spiriva Spiriva 2018-07 Yes [place] Unknown Unknown with with 2- Gokul SALAZAR HandiHaler HandiHaler 18 mcg and 18 mcg and inhalation inhalation capsules capsules ipratropium ipratropium 2018-07 Yes [place] Unknown Unknown -albuterol -albuterol 2- Gokul SALAZAR 0.5 mg-3 0.5 mg-3 mg(2.5 mg mg(2.5 mg base)/3 mL base)/3 mL nebulizatio nebulizatio n soln n soln finasteride finasteride 2018-07 Yes [place] Unknown Unknown 5 mg tablet 5 mg tablet 2- Gokul SALAZAR sertraline sertraline 2018-07 Yes Humza Unknown Unknown 100 mg 100 mg 2- Gokul SALAZAR tablet tablet tamsulosin tamsulosin 2018-07 Yes Humza Unknown Unknown 0.4 mg 0.4 mg 2- Gokul SALAZAR capsule capsule ondansetron ondansetron 2018-07 Yes [place] Unknown Unknown 4 mg 4 mg 2- Gokul SALAZAR disintegrat disintegrat ing tablet ing tablet simethicone simethicone 2018-07 Yes Humza Unknown Unknown 80 mg 80 mg 2- Gokul SALAZAR chewable chewable tablet tablet omeprazole omeprazole 2018-07 Yes [place] Unknown Unknown 20 mg 20 mg 2 Gokul SALAZAR capsule,del capsule,del ayed ayed release release metFORMIN metFORMIN 2018-07 Yes [place] Unknown Unknown 1,000 mg 1,000 mg 2 Gokul SALAZAR tablet tablet levothyroxi levothyroxi 2018-07 Yes [place] Unknown Unknown ne 50 mcg ne 50 mcg 2 Gokul SALAZAR tablet tablet Lactobac. Lactobac. 2018-07 Yes [place] Unknown Unknown acidophilus acidophilus 08-23 Gokul SALAZAR [...] magnesium) tablet tablet colchicine colchicine 2018-07 Yes [place] Unknown Unknown 0.6 mg 0.6 mg 08-23 Gokul SALAZAR tablet tablet cholecalcif cholecalcif 2018-07 Yes Humza Unknown Unknown murray murray 08-23 Gokul SALAZAR (vitamin (vitamin D3) 1,000 D3) 1,000 unit unit capsule capsule Tums 200 mg Tums 200 mg 2018-07 Yes Humza Unknown Unknown calcium calcium 08-23 Gokul SALAZAR (500 mg) (500 mg) chewable chewable tablet tablet oxygen oxygen 2018-07 Yes [place] Unknown Unknown 08-23 Gokul SALAZAR acetaminoph acetaminoph 2018-07 Yes [place] Unknown Unknown en 500 mg en 500 mg 08-29 Gokul SALAZAR tablet tablet azithromyci azithromyci 2018-07- Yes Humza Unknown Unknown n 250 mg n 250 mg 09-02 Gokul SALAZAR tablet tablet amoxicillin amoxicillin 2018-07- Yes [place] Unknown Unknown [id number] 09-02 Gokul SALAZAR [...]
--- OUTSIDE RECORDS SUMMARY | 2019-08-10 19:16 | XMS REPORT ---
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 Active Abigail (current) (current) Carrier RN [...] Pain Mgmt Active 2018-07 Mary pain 2-17 [place] 12:28: [id number] 00 Respiratory dyspnea Respirator Active 2018-07 Mary present y 08-23 [place] 12:28: [id number] 00 Respiratory oxygen Respirator Active 2018-07 Mary treatments y 08-23 [place] in home 12:28: [id number] 00 Respiratory lung sounds Respirator Active 2018-07 Mary deficit y 08-23 [place] 12:28: [id number] 00 Endo/Carlos diabetic Endo/Carlos Active 2018-07 Mary foot care 08-23 [place] 12:28: [id number] 00 Sensory impaired Sensory Active 2018-07 Mary hearing 08-23 [place] 12:28: [id number] 00 Integument skin Integument Active 2018-07 Mary integrity 08-23 [place] risk 12:28: [id number] Nutrition nutritional Nutrition Active 2018-07 Mary restriction 08-23 [place] s 12:28: [id number] 00 Elimination catheter Eliminatio Active 2018-07 Mary present n 08-23 [place] 12:28: [id number] 00 Elimination ostomy Eliminatio Resolve 2018-072019-06-24 Mary present n d 08-23 14:35:00 [place] 12:28: [id number] 00 Neuro confusion Neuro/Emot Active 2018-07 Mary present ion 08-23 [place] 12:28: [id number] 00 Activity ADL Activity Active 2018-07 Mary assistance 08-23 [place] required 12:28: [id number] 00 Activity self-care Activity Active 2018-07 Mary deficit 08-23 [place] 12:28: [id number] 00 Safety structural Safety Active 2018-07 Mary barriers 08-23 [place] present 12:28: [id number] 00 Safety fall risk Safety Active 2018-07 Mary factor 08-23 [place] present 12:28: [id number] 00 Safety risk for Safety Active 2018-07 Mary hospitaliza 08-23 [place] tion 12:28: [id number] 00 Safety can be left Safety Active 2018-07 Mary alone for 08-23 [place] only short 12:28: [id number] periods 00 Medication oral med Meds Active 2018-07 Mary assistance 08-23 [place] required 12:28: [id number] 00 Medication knowledge/s Meds Active 2018-07 Mary kill 08-23 [place] deficit: pt 12:28: [id number] 00 Medication knowledge/s Meds Active 2018- Mary kill 2-17 [place] deficit: cg 12:28: [id number] 00 Medication potential Meds Active 2018-07 Mary clinically 2-17 [place] significant 12:28: [id number] medication 00 issue Musculoskel transfer Musculoske Active 2018-07 Mary etal assistance letal 2-17 [place] required 12:28: [id number] 00 Musculoskel requires Musculoske Active 2018-07 Mary etal human letal 2-17 [place] assist to 12:28: [id number] leave home 00 Cardio edema Cardiovasc Active [...] Social 2-27 [place] deficit - Services 10:00: [id number] pt 00 Social knowledge/s SERGIO: Active 2018-07 Nancy Services kill Social 2-27 [place] deficit - Services 10:00: [id number] cg 00 Social knowledge/s SERGIO: Unknown 2018-07 Alicia Services kill Social 2-30 [place] deficit - Services 13:17: [id number] cg 00 Cardio knowledge/s Cardiovasc Active 2020-0 [...] (SIG) Name Name furosemide furosemide 2018-07 Yes [place] Unknown Unknown 20 mg 20 mg 2- Gokul SALAZAR tablet tablet thiamine thiamine 2018-07 Yes [place] Unknown Unknown HCl HCl 2- Gokul SALAZAR (vitamin (vitamin B1) 100 mg B1) 100 mg tablet tablet atorvastati atorvastati 2018-07 Yes Humza Unknown Unknown n 20 mg n 20 mg 2- Gokul SALAZAR tablet tablet carvedilol carvedilol 2018-07 Yes Humza Unknown Unknown 25 mg 25 mg 2- Gokul SALAZAR tablet tablet DILT-XR 120 DILT-XR 120 2018-07 Yes [place] Unknown Unknown mg capsule, mg capsule, 2- Gokul SALAZAR extended extended release release isosorbide isosorbide 2018-07 Yes [place] Unknown Unknown mononitrate mononitrate 2-17 Gokul SALAZAR ER 30 mg ER 30 mg tablet,exte tablet,exte nded nded release 24 release 24 hr hr Symbicort Symbicort 2018-07 Yes [place] Unknown Unknown 160 mcg-4.5 160 mcg-4.5 2-17 Gokul SALAZAR mcg/actuati mcg/actuati on HFA on HFA aerosol aerosol inhaler inhaler Spiriva Spiriva 2018-07 Yes [place] Unknown Unknown with with 2- Gokul SALAZAR HandiHaler HandiHaler 18 mcg and 18 mcg and inhalation inhalation capsules capsules ipratropium ipratropium 2018-07 Yes Humza Unknown Unknown -albuterol -albuterol 2-17 Gokul SALAZAR 0.5 mg-3 0.5 mg-3 mg(2.5 mg mg(2.5 mg base)/3 mL base)/3 mL nebulizatio nebulizatio n soln n soln finasteride finasteride 2018-07 Yes [place] Unknown Unknown 5 mg tablet 5 mg tablet 08-23 Gokul SALAZAR sertraline sertraline 2018-07 Yes Humza Unknown Unknown 100 mg 100 mg 08-23 Gokul SALAZAR tablet tablet tamsulosin tamsulosin 2018-07 Yes Humza Unknown Unknown 0.4 mg 0.4 mg 08-23 Gokul SALAZAR capsule capsule ondansetron ondansetron 2018-07 Yes [place] Unknown Unknown 4 mg 4 mg 08-23 Gokul SALAZAR disintegrat disintegrat ing tablet ing tablet simethicone simethicone 2018-07 Yes [place] Unknown Unknown 80 mg 80 mg 08-23 Gokul SALAZAR chewable chewable tablet tablet omeprazole omeprazole 2018-07 Yes Humza Unknown Unknown 20 mg 20 mg 08-23 Gokul SALAZAR capsule,del capsule,del ayed ayed release release metFORMIN metFORMIN 2018-07 Yes Humza Unknown Unknown 1,000 mg 1,000 mg 08-23 Gokul SALAZAR tablet tablet levothyroxi levothyroxi 2018-07 Yes Humza Unknown Unknown ne 50 mcg ne 50 mcg 08-23 Gokul SALAZAR tablet tablet Lactobac. Lactobac. 2018-07 Yes [place] Unknown Unknown acidophilus acidophilus 08-23 Gokul SALAZAR -Bifido. -Bifido. animalis 10 animalis 10 billion billion cell cell chewable chewable tablet tablet folic acid folic acid 2018-07 Yes Humza Unknown Unknown 1 mg tablet 1 mg tablet 08-23 Gokul SALAZAR magnesium magnesium 2018-07 Yes [place] Unknown Unknown oxide 400 oxide 400 08-23 [...] 200 mg Tums 200 mg 2018-07 Yes [place] Unknown Unknown calcium calcium 08-23 Gokul SALAZAR (500 mg) (500 mg) chewable chewable tablet tablet oxygen oxygen 2018-07 Yes Humza Unknown Unknown 08-23 Gokul SALAZAR acetaminoph acetaminoph 2018-07 Yes Humza Unknown Unknown en 500 mg en 500 mg 08-29 MD,Gokul tablet tablet azithromyci azithromyci 2018-07- Yes [place] Unknown Unknown n 250 mg n 250 mg 09-02 ,Gokul tablet tablet amoxicillin amoxicillin 2018-07- Yes Humza Unknown Unknown [id number] 09-02 ,Gokul mg-potassiu mg-potassiu m m clavulanate clavulanate 125 mg 125 mg tablet tablet diphenhydrA diphenhydrA 2018-07 Yes [place] Unknown Unknown MINE 25 mg MINE 25 mg 09-02 MD,Gokul tablet tablet Zithromax Zithromax 2018-07- Yes Humza Unknown Unknown 250 mg 250 mg 09-03 ,Gokul tablet tablet Vital Signs Vital Name Observation Time Observation Value Comments SYSTOLIC mm[Hg] 2019-07-28 18:10:00 140 mm[Hg] mm[Hg] Method: Sit SYSTOLIC mm[Hg] 2019-06-22 18:09:24 148 mm[Hg] mm[Hg] Method: Stand DIASTOLIC mm[Hg] 2019-07-28 18:10:00 72 mm[Hg] mm[Hg] Method: Sit DIASTOLIC mm[Hg] 2019-06-22 18:09:24 84 mm[Hg] mm[Hg] Method: Stand PULSE 2019-07-28 18:10:00 70 /min /min RESP RATE 2019-07-28 18:10:00 16 /min /min TEMP 2019-07-28 18:10:00 98.1 [degF] Procedures This patient has no known procedures. Results This patient has no known results.
--- OUTSIDE RECORDS SUMMARY | 2019-08-10 19:16 | XMS REPORT ---
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 intermediate teacher Diagnosis Active Abigail (current) (current) Carrier RN [...] Pain Mgmt Active 2018-07 Mary pain 2-17 [place] 12:28: [id number] 00 Respiratory dyspnea Respirator Active 2018-07 Mary present y 08-23 [place] 12:28: [id number] 00 Respiratory oxygen Respirator Active 2018-07 Mary treatments y 08-23 [place] in home 12:28: [id number] 00 Respiratory lung sounds Respirator Active 2018-07 Mary deficit y 08-23 [place] 12:28: [id number] 00 Endo/Carlos diabetic Endo/Carlos Active 2018-07 Mary foot care 08-23 [place] 12:28: [id number] 00 Sensory impaired Sensory Active 2018-07 Mary hearing 08-23 [place] 12:28: [id number] 00 Integument skin Integument Active 2018-07 Mary integrity 08-23 [place] risk 12:28: [id number] 00 Nutrition nutritional Nutrition Active 2018-07 Mary restriction 08-23 [place] s 12:28: [id number] 00 Elimination catheter Eliminatio Active 2018-07 Mary present n 08-23 [place] 12:28: [id number] 00 Elimination ostomy Eliminatio Resolve 2018-072019-06-24 Mary present n d 08-23 14:35:00 [place] 12:28: [id number] 00 Neuro confusion Neuro/Emot Active 2018-07 Mary present ion 08-23 [place] 12:28: [id number] 00 Activity ADL Activity Active 2018-07 Mary assistance 08-23 [place] required 12:28: [id number] 00 Activity self-care Activity Active 2018-07 Mary deficit 08-23 [place] 12:28: [id number] 00 Safety structural Safety Active 2018-07 Mary barriers 08-23 [place] present 12:28: [id number] 00 Safety fall risk Safety Active 2018-07 Mary factor 08-23 [place] present 12:28: [id number] 00 Safety risk for Safety Active 2018-07 Mary hospitaliza 08-23 [place] tion 12:28: [id number] 00 Safety can be left Safety Active 2018-07 Mary alone for 08-23 [place] only short 12:28: [id number] periods 00 Medication oral med Meds Active 2018-07 Mary assistance 08-23 [place] required 12:28: [id number] 00 Medication knowledge/s Meds Active 2018-07 Mary kill 08-23 [place] deficit: pt 12:28: [id number] 00 Medication knowledge/s Meds Active 2018- Mary kill 2-17 [place] deficit: cg 12:28: [id number] 00 Medication potential Meds Active 2018-07 Mary clinically 2-17 [place] significant 12:28: [id number] medication 00 issue Musculoskel transfer Musculoske Active 2018-07 Mary etal assistance letal 2-17 [place] required 12:28: [id number] 00 Musculoskel requires Musculoske Active 2018-07 Mary etal human letal 2-17 [place] assist to 12:28: [id number] leave home 00 Cardio edema Cardiovasc Active [...] Social 2-27 [place] deficit - Services 10:00: [id number] pt 00 Social knowledge/s SERGIO: Active 2018-07 Nancy Services kill Social 2-27 [place] deficit - Services 10:00: [id number] cg 00 Social knowledge/s SERGIO: Unknown 2018-07 Alicia Services kill Social 2-30 [place] deficit - Services 13:17: [id number] cg 00 Cardio knowledge/s Cardiovasc Active 2020-0 [...] (SIG) Name Name furosemide furosemide 2018-[address] Unknown Unknown 20 mg 20 mg 2- Gokul SALAZAR tablet tablet thiamine thiamine 2018-[address] Unknown Unknown HCl HCl 2- Gokul SALAZAR (vitamin (vitamin B1) 100 mg B1) 100 mg tablet tablet atorvastati atorvastati 2018-07 Yes Humza Unknown Unknown n 20 mg n 20 mg 2- Gokul SALAZAR tablet tablet carvedilol carvedilol 2018-07 Yes Humza Unknown Unknown 25 mg 25 mg 2- Gokul SALAZAR tablet tablet DILT-XR 120 DILT-XR 120 2018-[address] Unknown Unknown mg capsule, mg capsule, 2- Gokul SALAZAR extended extended release release isosorbide isosorbide 2018-[address] Unknown Unknown mononitrate mononitrate 2-17 Gokul SALAZAR ER 30 mg ER 30 mg tablet,exte tablet,exte nded nded release 24 release 24 hr hr Symbicort Symbicort 2018-[address] Unknown Unknown 160 mcg-4.5 160 mcg-4.5 2-17 Gokul SALAZAR mcg/actuati mcg/actuati on HFA on HFA aerosol aerosol inhaler inhaler Spiriva Spiriva 2018-[address] Unknown Unknown with with 2- Gokul SALAZAR HandiHaler HandiHaler 18 mcg and 18 mcg and inhalation inhalation capsules capsules ipratropium ipratropium 2018-07 Yes Humza Unknown Unknown -albuterol -albuterol 2-17 Gokul SALAZAR 0.5 mg-3 0.5 mg-3 mg(2.5 mg mg(2.5 mg base)/3 mL base)/3 mL nebulizatio nebulizatio n soln n soln finasteride finasteride 2018-[address] Unknown Unknown 5 mg tablet 5 mg tablet 08-23 Gokul SALAZAR sertraline sertraline 2018-07 Yes Humza Unknown Unknown 100 mg 100 mg 08-23 Gokul SALAZAR tablet tablet tamsulosin tamsulosin 2018-07 Yes Humza Unknown Unknown 0.4 mg 0.4 mg 08-23 Gokul SALAZAR capsule capsule ondansetron ondansetron 2018-[address] Unknown Unknown 4 mg 4 mg 08-23 Gokul SALAZAR disintegrat disintegrat ing tablet ing tablet simethicone simethicone 2018-[address] Unknown Unknown 80 mg 80 mg 08-23 [...] SALAZAR tablet tablet Lactobac. Lactobac. 2018-[address] Unknown Unknown acidophilus acidophilus 08-23 Gokul SALAZAR -Bifido. -Bifido. animalis 10 animalis 10 billion billion cell cell chewable chewable tablet tablet folic acid folic acid 2018-07 Yes Humza Unknown Unknown 1 mg tablet 1 mg tablet 08-23 Gokul SALAZAR magnesium magnesium 2018-[address] Unknown Unknown oxide 400 oxide 400 08-23 [...] 200 mg Tums 200 mg 2018-[address] Unknown Unknown calcium calcium 08-23 Gokul SALAZAR (500 mg) (500 mg) chewable chewable tablet tablet oxygen oxygen 2018-07 Yes Humza Unknown Unknown 08-23 Gokul SALAZAR acetaminoph acetaminoph 2018-07 Yes Humza Unknown Unknown en 500 mg en 500 mg 08-29 MD,[place] tablet tablet azithromyci azithromyci 2018-07- Yes [address] Unknown Unknown n 250 mg n 250 mg 09-02 ,Gokul tablet tablet amoxicillin amoxicillin 2018-07- Yes Humza Unknown Unknown [phone] 09-02 ,Gokul mg-potassiu mg-potassiu m m clavulanate clavulanate 125 mg 125 mg tablet tablet diphenhydrA diphenhydrA 2018-[address] Unknown Unknown MINE 25 mg MINE 25 [...]
--- OUTSIDE RECORDS SUMMARY | 2019-08-10 19:16 | XMS REPORT ---
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 exterminator helper longterm Diagnosis Active Abigail (current) (current) Carrier [...] Resolve 2018-072019-08-02 Mary pain d 08-23 12:50:00 [place] 12:28: [id number] 00 Respiratory dyspnea Respirator Active 2018-07 Mary present y 08-23 [place] 12:28: [id number] 00 Respiratory oxygen Respirator Active 2018-07 Mary treatments y 08-23 [place] in home 12:28: [id number] 00 Respiratory lung sounds Respirator Active 2018-07 Mary deficit y 08-23 [place] 12:28: [id number] 00 Endo/Carlos diabetic Endo/Carlos Resolve 2018-072019-07-30 Mary foot care d 08-23 10:45:00 [place] 12:28: [id number] 00 Sensory impaired Sensory Active 2018-07 Mary hearing 08-23 [place] 12:28: [id number] 00 Integument skin Integument Active 2018-07 Mary integrity 08-23 [place] risk 12:28: [id number] 00 Nutrition nutritional Nutrition Resolve 2018-072019-07-30 Mary restriction d 08-23 10:45:00 [place] s 12:28: [id number] 00 Elimination catheter Eliminatio Active 2018-07 Mary present n 08-23 [place] 12:28: [id number] 00 Elimination ostomy Eliminatio Resolve 2018-072019-06-24 Mary present n d 08-23 14:35:00 [place] 12:28: [id number] 00 Neuro confusion Neuro/Emot Resolve 2018-072019-08-02 Mary present ion d 08-23 12:50:00 [place] 12:28: [id number] 00 Activity ADL Activity Resolve 2018-072019-08-02 Mary assistance d 2- 12:50:00 [place] required 12:28: [id number] 00 Activity self-care Activity Resolve 2018-072019-07-30 Mary deficit d 2-17 10:45:00 [place] 12:28: [id number] 00 Safety structural Safety Active 2018-07 Mary barriers 08-23 [place] present 12:28: [id number] 00 Safety fall risk Safety Active 2018-07 Mary factor 08-23 [place] present 12:28: [id number] 00 Safety risk for Safety Active 2018-07 Mary hospitaliza 08-23 [place] tion 12:28: [id number] 00 Safety can be left Safety Active 2018-07 Mary alone for 08-23 [place] only short 12:28: [id number] periods 00 Medication oral med Meds Resolve 2018-072019-08-02 Mary assistance d 2- 12:50:00 [place] required 12:28: [id number] 00 Medication knowledge/s Meds Resolve 2018-072019-08-02 Mary kill d 2- 12:50:00 [place] deficit: pt 12:28: [id number] 00 Medication knowledge/s Meds Resolve 2018-072019-08-02 Mary kill d 2- 12:50:00 [place] deficit: cg 12:28: [id number] 00 Medication potential Meds Resolve 2018-072019-08-02 Mary clinically d - 12:50:00 [place] significant 12:28: [id number] medication 00 issue Musculoskel transfer Musculoske Active 2018-07 Mary etal assistance letal 08-23 [place] required 12:28: [id number] Musculoskel requires Musculoske Active 2018-07 Mary etal human letal 08-23 [place] assist to 12:28: [id number] leave home 00 Cardio edema Cardiovasc Active [...] Social 2-27 [place] deficit - Services 10:00: [id number] pt 00 Social knowledge/s SERGIO: Active 2018-07 Nancy Services kill Social 2- [place] deficit - Services 10:00: [id number] cg 00 Social knowledge/s SERGIO: Unknown 2018-07 [place]ia Services kill Social 2-30 [place] deficit - Services 13:17: [id number] cg 00 Cardio knowledge/s Cardiovasc Active 2019-0 [...] (SIG) Name Name furosemide furosemide 2018-07 Yes [place] Unknown Unknown 20 mg 20 mg 2-17 Gokul SALAZAR tablet tablet thiamine thiamine 2018-07 Yes [place] Unknown Unknown HCl HCl 2- Gokul SALAZAR (vitamin (vitamin B1) 100 mg B1) 100 mg tablet tablet atorvastati atorvastati 2018-07 Yes [place] Unknown Unknown n 20 mg n 20 mg 2- ,Gokul tablet tablet carvedilol carvedilol 2018-07 Yes [place] Unknown Unknown 25 mg 25 mg 2- Gokul SALAZAR tablet tablet DILT-XR 120 DILT-XR 120 2018-07 Yes [place] Unknown Unknown mg capsule, mg capsule, 2- ,Gokul extended extended release release isosorbide isosorbide 2018-07 Yes [place] Unknown Unknown mononitrate mononitrate 2- ,Gokul ER 30 mg ER 30 mg tablet,exte tablet,exte nded nded release 24 release 24 hr hr Symbicort Symbicort 2018-07 Yes [place] Unknown Unknown 160 mcg-4.5 160 mcg-4.5 2- Gokul SALAZAR mcg/actuati mcg/actuati on HFA on HFA aerosol aerosol inhaler inhaler Spiriva Spiriva 2018-07 Yes [place] Unknown Unknown with with 2- Gokul SALAZAR HandiHaler HandiHaler 18 mcg and 18 mcg and inhalation inhalation capsules capsules ipratropium ipratropium 2018-07 Yes [place] Unknown Unknown -albuterol -albuterol 2- Gokul SALAZAR 0.5 mg-3 0.5 mg-3 mg(2.5 mg mg(2.5 mg base)/3 mL base)/3 mL nebulizatio nebulizatio n soln n soln finasteride finasteride 2018-07 Yes [place] Unknown Unknown 5 mg tablet 5 mg tablet 2- Gokul SALAZAR sertraline sertraline 2018-07 Yes [place] Unknown Unknown 100 mg 100 mg 2- Gokul SALAZAR tablet tablet tamsulosin tamsulosin 2018-07 Yes [place] Unknown Unknown 0.4 mg 0.4 mg 2- Gokul SALAZAR capsule capsule ondansetron ondansetron 2018-07 Yes [place] Unknown Unknown 4 mg 4 mg 2- Gokul SALAZAR disintegrat disintegrat ing tablet ing tablet simethicone simethicone 2018-07 Yes [place] Unknown Unknown 80 mg 80 mg 2- Gokul SALAZAR chewable chewable tablet tablet omeprazole omeprazole 2018-07 Yes [place] Unknown Unknown 20 mg 20 mg 2 Gokul SALAZAR capsule,del capsule,del ayed ayed release release metFORMIN metFORMIN 2018-07 Yes [place] Unknown Unknown 1,000 mg 1,000 mg 2 Gokul SALAZAR tablet tablet levothyroxi levothyroxi 2018-07 Yes [place] Unknown Unknown ne 50 mcg ne 50 mcg 2 Gokul SALAZAR tablet tablet Lactobac. Lactobac. 2018-07 Yes [place] Unknown Unknown acidophilus acidophilus 08-23 Gokul SALAZAR [...] magnesium) tablet tablet colchicine colchicine 2018-07 Yes [place] Unknown Unknown 0.6 mg 0.6 mg 08-23 Gokul SALAZAR tablet tablet cholecalcif cholecalcif 2018-07 Yes [place] Unknown Unknown umrray murray 08-23 Gokul SALAZAR (vitamin (vitamin D3) 1,000 D3) 1,000 unit unit capsule capsule Tums 200 mg Tums 200 mg 2018-07 Yes [place] Unknown Unknown calcium calcium 08-23 Gokul SALAZAR (500 mg) (500 mg) chewable chewable tablet tablet oxygen oxygen 2018-07 Yes [place] Unknown Unknown 08-23 Gokul SALAZAR acetaminoph acetaminoph 2018-07 Yes [place] Unknown Unknown en 500 mg en 500 mg 08-29 Gokul SALAZAR tablet tablet azithromyci azithromyci 2018-07- Yes [place] Unknown Unknown n 250 mg n 250 mg 09-02 Gokul SALAZAR tablet tablet amoxicillin amoxicillin 2018-07- Yes [place] Unknown Unknown [id number] 09-02 Gokul SALAZAR mg-potassiu mg-potassiu m m clavulanate clavulanate 125 mg 125 mg tablet tablet diphenhydrA diphenhydrA 2018-07 Yes Humza Unknown Unknown MINE 25 mg MINE 25 mg 09-02 Gokul SALAZAR tablet tablet Zithromax Zithromax 2018-07- Yes Humza Unknown Unknown 250 mg 250 mg 09-03 ,Gokul tablet tablet Vital Signs Vital Name Observation Time Observation Value Comments SYSTOLIC mm[Hg] 2019-08-06 18:10:09 128 mm[Hg] mm[Hg] Method: Sit SYSTOLIC mm[Hg] 2019-06-22 18:09:24 148 mm[Hg] mm[Hg] Method: Stand DIASTOLIC mm[Hg] 2019-08-06 18:10:09 70 mm[Hg] mm[Hg] Method: Sit DIASTOLIC mm[Hg] 2019-06-22 18:09:24 84 mm[Hg] mm[Hg] Method: Stand PULSE 2019-08-06 18:10:09 64 /min /min RESP RATE 2019-08-06 18:10:09 16 /min /min TEMP 2019-08-06 18:10:09 98.1 [degF] Procedures This patient has no known procedures. Results This patient has no known results.
--- OUTSIDE RECORDS SUMMARY | 2019-08-10 19:16 | XMS REPORT ---
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 clerk Diagnosis Active Abigail (current) (current) [...] Pain Mgmt Active 2018-07 Mary pain 2-17 [place] 12:28: [id number] 00 Respiratory dyspnea Respirator Active 2018-07 Mary present y 08-23 [place] 12:28: [id number] 00 Respiratory oxygen Respirator Active 2018-07 Mary treatments y 08-23 [place] in home 12:28: [id number] 00 Respiratory lung sounds Respirator Active 2018-07 Mary deficit y 08-23 [place] 12:28: [id number] 00 Endo/Carlos diabetic Endo/Carlos Active 2018-07 Mary foot care 08-23 [place] 12:28: [id number] 00 Sensory impaired Sensory Active 2018-07 Mary hearing 08-23 [place] 12:28: [id number] 00 Integument skin Integument Active 2018-07 Mary integrity 08-23 [place] risk 12:28: [id number] 00 Nutrition nutritional Nutrition Active 2018-07 Mary restriction 08-23 [place] s 12:28: [id number] 00 Elimination catheter Eliminatio Active 2018-07 Mary present n 08-23 [place] 12:28: [id number] 00 Elimination ostomy Eliminatio Resolve 2018-072019-06-24 Mary present n d 08-23 14:35:00 [place] 12:28: [id number] 00 Neuro confusion Neuro/Emot Active 2018-07 Mary present ion 08-23 [place] 12:28: [id number] 00 Activity ADL Activity Active 2018-07 Mary assistance 08-23 [place] required 12:28: [id number] 00 Activity self-care Activity Active 2018-07 Mary deficit 08-23 [place] 12:28: [id number] 00 Safety structural Safety Active 2018-07 Mary barriers 08-23 [place] present 12:28: [id number] 00 Safety fall risk Safety Active 2018-07 Mary factor 08-23 [place] present 12:28: [id number] 00 Safety risk for Safety Active 2018-07 Mary hospitaliza 08-23 [place] tion 12:28: [id number] 00 Safety can be left Safety Active 2018-07 Mary alone for 08-23 [place] only short 12:28: [id number] periods 00 Medication oral med Meds Active 2018-07 Mary assistance 08-23 [place] required 12:28: [id number] 00 Medication knowledge/s Meds Active 2018-07 Mary kill 08-23 [place] deficit: pt 12:28: [id number] 00 Medication knowledge/s Meds Active 2018-07 Mary garcia 2-17 [place] deficit: cg 12:28: [id number] 00 Medication potential Meds Active 2018-07 Mary clinically 2-17 [place] significant 12:28: [id number] medication 00 issue Musculoskel transfer Musculoske Active 2018-07 Mary etal assistance letal 2-17 [place] required 12:28: [id number] 00 Musculoskel requires Musculoske Active 2018-07 Mary etal human letal 2-17 [place] assist to 12:28: [id number] leave home 00 Cardio edema Cardiovasc Active [...] Social 2-27 [place] deficit - Services 10:00: [id number] pt 00 Social knowledge/s SERGIO: Active 2018-07 Nancy Services kill Social 2-27 [place] deficit - Services 10:00: [id number] cg 00 Social knowledge/s SERGIO: Unknown 2018-07 Alicia Services kill Social 2-30 [place] deficit - Services 13:17: [id number] cg 00 Respiratory CPAP Respirator Active Abigail [...] tablet tablet atorvastati atorvastati 2018-07 Yes [place] Unknown Unknown n 20 mg n 20 mg 2- ,Gokul tablet tablet carvedilol carvedilol 2018-07 Yes [place] Unknown Unknown 25 mg 25 mg 2- Gokul SALAZAR tablet tablet DILT-XR 120 DILT-XR 120 2018-07 Yes [place] Unknown Unknown mg capsule, mg capsule, 2- ,Gokul extended extended release release isosorbide isosorbide 2018-07 Yes [facility] Unknown Unknown mononitrate mononitrate 2- Gokul SALAZAR ER 30 mg ER 30 mg tablet,exte tablet,exte nded nded release 24 release 24 hr hr Symbicort Symbicort 2018-07 Yes [place] Unknown Unknown 160 mcg-4.5 160 mcg-4.5 2- Gokul SALAZAR mcg/actuati mcg/actuati on HFA on HFA aerosol aerosol inhaler inhaler Spiriva Spiriva 2018-07 Yes [place] Unknown Unknown with with 2- Gokul SALAZAR HandiHaler HandiHaler 18 mcg and 18 mcg and inhalation inhalation capsules capsules ipratropium ipratropium 2018-07 Yes [place] Unknown Unknown -albuterol -albuterol 2- Gokul SALAZAR 0.5 mg-3 0.5 mg-3 mg(2.5 mg mg(2.5 mg base)/3 mL base)/3 mL nebulizatio nebulizatio n soln n soln finasteride finasteride 2018-07 Yes [place] Unknown Unknown 5 mg tablet 5 mg [...] tablet ing tablet simethicone simethicone 2018-07 Yes [place] Unknown Unknown 80 mg 80 mg 2- Gokul SALAZAR chewable chewable tablet tablet omeprazole omeprazole 2018-07 Yes [place] Unknown Unknown 20 mg 20 mg 2 [...] magnesium) tablet tablet colchicine colchicine 2018-07 Yes [place] Unknown Unknown 0.6 mg 0.6 mg 08-23 Gokul SALAZAR tablet tablet cholecalcif cholecalcif 2018-07 Yes [place] Unknown Unknown murray murray 08-23 Gokul SALAZAR (vitamin (vitamin D3) 1,000 D3) 1,000 unit unit capsule capsule Tums 200 mg Tums 200 mg 2018-07 Yes [place] Unknown Unknown calcium calcium 08-23 Gokul SALAZAR (500 mg) (500 mg) chewable chewable tablet tablet oxygen oxygen 2018-07 Yes [place] Unknown Unknown 08-23 Gokul SALAZAR acetaminoph acetaminoph 2018-07 Yes [place] Unknown Unknown en 500 mg en 500 mg 08-29 Gokul SALAZAR tablet tablet azithromyci azithromyci 2018-07- Yes [place] Unknown Unknown n 250 mg n 250 mg 09-02 Gokul SALAZAR tablet tablet amoxicillin amoxicillin 2018-07 Yes [place] Unknown Unknown [id number] 09-02 Gokul SALAZAR mg-potassiu mg-potassiu m m clavulanate clavulanate 125 mg 125 mg tablet tablet diphenhydrA diphenhydrA 2018-07 Yes [place] Unknown Unknown MINE 25 mg MINE 25 mg 09-02 Gokul SALAZAR tablet tablet Zithromax Zithromax 2018-07 Yes [place] Unknown Unknown 250 mg 250 mg 09-03 Gokul SALAZAR tablet tablet Vital Signs Vital Name Observation Time Observation Value Comments SYSTOLIC mm[Hg] 2019-07-26 18:09:58 110 mm[Hg] mm[Hg] Method: Sit SYSTOLIC mm[Hg] 2019-06-22 18:09:24 148 mm[Hg] mm[Hg] Method: Stand DIASTOLIC mm[Hg] 2019-07-26 18:09:58 74 mm[Hg] mm[Hg] Method: Sit DIASTOLIC mm[Hg] 2019-06-22 18:09:24 84 mm[Hg] mm[Hg] Method: Stand PULSE 2019-07-26 18:09:58 72 /min /min RESP RATE 2019-07-26 18:09:58 16 /min /min TEMP 2019-07-26 18:09:58 97.6 [degF] Procedures This patient has no known procedures. Results This patient has no known results.
--- OUTSIDE RECORDS SUMMARY | 2019-08-10 19:16 | XMS REPORT ---
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) Carrier [...] Pain Mgmt Active 2018-07 Mary pain 2-17 [place] 12:28: [id number] 00 Respiratory dyspnea Respirator Active 2018-07 Mary present y 08-23 [place] 12:28: [id number] 00 Respiratory oxygen Respirator Active 2018-07 Mary treatments y 08-23 [place] in home 12:28: [id number] 00 Respiratory lung sounds Respirator Active 2018-07 Mary deficit y 08-23 [place] 12:28: [id number] 00 Endo/Carlos diabetic Endo/Carlos Active 2018-07 Mary foot care 08-23 [place] 12:28: [id number] 00 Sensory impaired Sensory Active 2018-07 Mary hearing 08-23 [place] 12:28: [id number] 00 Integument skin Integument Active 2018-07 Mary integrity 08-23 [place] risk 12:28: [id number] 00 Nutrition nutritional Nutrition Active 2018-07 Mary restriction 08-23 [place] s 12:28: [id number] 00 Elimination catheter Eliminatio Active 2018-07 Mary present n 08-23 [place] 12:28: [id number] 00 Elimination ostomy Eliminatio Resolve 2018-072019-06-24 Mary present n d 08-23 14:35:00 [place] 12:28: [id number] 00 Neuro confusion Neuro/Emot Active 2018-07 Mary present ion 08-23 [place] 12:28: [id number] 00 Activity ADL Activity Active 2018-07 Mary assistance 08-23 [place] required 12:28: [id number] 00 Activity self-care Activity Active 2018-07 Mary deficit 08-23 [place] 12:28: [id number] 00 Safety structural Safety Active 2018-07 Mary barriers 08-23 [place] present 12:28: [id number] 00 Safety fall risk Safety Active 2018-07 Mary factor 08-23 [place] present 12:28: [id number] 00 Safety risk for Safety Active 2018-07 Mary hospitaliza 08-23 [place] tion 12:28: [id number] 00 Safety can be left Safety Active 2018-07 Mary alone for 08-23 [place] only short 12:28: [id number] periods 00 Medication oral med Meds Active 2018-07 Mary assistance 08-23 [place] required 12:28: [id number] 00 Medication knowledge/s Meds Active 2018-07 Mary kill 08-23 [place] deficit: pt 12:28: [id number] 00 Medication knowledge/s Meds Active 2018-07 Mary garcia 2-17 [place] deficit: cg 12:28: [id number] 00 Medication potential Meds Active 2018-07 Mary clinically 2-17 [place] significant 12:28: [id number] medication 00 issue Musculoskel transfer Musculoske Active 2018-07 Mary etal assistance letal -17 [place] required 12:28: [id number] 00 Musculoskel requires Musculoske Active 2018-07 Mary etal human letal 2-17 [place] assist to 12:28: [id number] leave home 00 Cardio edema Cardiovasc Active [...] Social 2-27 [place] deficit - Services 10:00: [id number] pt 00 Social knowledge/s SERGIO: Active 2018-07 Nancy Services kill Social 2-27 [place] deficit - Services 10:00: [id number] cg 00 Social knowledge/s SERGIO: Unknown 2018-07 Alicia Services kill Social 2-30 [place] deficit - Services 13:17: [id number] cg 00 Allergies, Adverse Reactions, Alerts Allergy [...] ,Gokul tablet tablet carvedilol carvedilol 2018-07 Yes [place] Unknown Unknown 25 mg 25 mg 2-17 ,Gokul tablet tablet DILT-XR 120 DILT-XR 120 2018-07 Yes [place] Unknown Unknown mg capsule, mg capsule, 2-17 ,Gokul extended extended release release isosorbide isosorbide 2018-07 Yes [place] Unknown Unknown mononitrate mononitrate 2-17 MD,Gokul ER 30 mg ER 30 mg tablet,exte tablet,exte nded nded release 24 release 24 hr hr Symbicort Symbicort 2018-07 Yes [place] Unknown Unknown 160 mcg-4.5 160 mcg-4.5 2-17 [...] ,Gokul capsule capsule ondansetron ondansetron 2018-07 Yes [place] Unknown Unknown 4 mg 4 mg 2-17 Gokul SALAZAR disintegrat disintegrat ing tablet ing tablet simethicone simethicone 2018-07 Yes [place] Unknown Unknown 80 mg 80 mg 2-17 [...] 2- Gokul SALAZAR magnesium magnesium 2018-07 Yes [place] Unknown Unknown oxide 400 oxide 400 08-23 Gokul SALAZAR mg (241.3 mg (241.3 mg mg magnesium) magnesium) tablet tablet colchicine colchicine 2018-07 Yes [place] Unknown Unknown 0.6 mg 0.6 mg 2 [...] mg tablet tablet diphenhydrA diphenhydrA 2018-07 Yes [place] Unknown Unknown MINE 25 mg MINE 25 mg 09-02 Gokul SALAZAR tablet tablet Zithromax Zithromax 2018-07 Yes [place] Unknown Unknown 250 mg 250 mg 09-03 [...]
--- OUTSIDE RECORDS SUMMARY | 2019-08-10 19:16 | XMS REPORT ---
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 continuous churn Diagnosis Active Abigail (current) (current) Carrier RN [...] Pain Mgmt Active 2018-07 Mary pain 2-17 [place] 12:28: [id number] 00 Respiratory dyspnea Respirator Active 2018-07 Mary present y 08-23 [place] 12:28: [id number] 00 Respiratory oxygen Respirator Active 2018-07 Mary treatments y 08-23 [place] in home 12:28: [id number] 00 Respiratory lung sounds Respirator Active 2018-07 Mary deficit y 08-23 [place] 12:28: [id number] 00 Endo/Carlos diabetic Endo/Carlos Active 2018-07 Mary foot care 08-23 [place] 12:28: [id number] 00 Sensory impaired Sensory Active 2018-07 Mary hearing 08-23 [place] 12:28: [id number] 00 Integument skin Integument Active 2018-07 Mary integrity 08-23 [place] risk 12:28: [id number] 00 Nutrition nutritional Nutrition Active 2018-07 Mary restriction 08-23 [place] s 12:28: [id number] 00 Elimination catheter Eliminatio Active 2018-07 [place] present n 08-23 [place] 12:28: [id number] 00 Elimination ostomy Eliminatio Resolve 2018-072019-06-24 Mary present n d 08-23 14:35:00 [place] 12:28: [id number] 00 Neuro confusion Neuro/Emot Active 2018-07 Mary present ion 08-23 [place] 12:28: [id number] 00 Activity ADL Activity Active 2018-07 Mary assistance 08-23 [place] required 12:28: [id number] 00 Activity self-care Activity Active 2018-07 Mary deficit 08-23 [place] 12:28: [id number] 00 Safety structural Safety Active 2018-07 Mary barriers 08-23 [place] present 12:28: [id number] 00 Safety fall risk Safety Active 2018-07 Mary factor 08-23 [place] present 12:28: [id number] 00 Safety risk for Safety Active 2018-07 Mary hospitaliza 08-23 [place] tion 12:28: [id number] 00 Safety can be left Safety Active 2018-07 Mary alone for 08-23 [place] only short 12:28: [id number] periods 00 Medication oral med Meds Active 2018-07 Mary assistance 08-23 [place] required 12:28: [id number] 00 Medication knowledge/s Meds Active 2018-07 Mary kill 08-23 [place] deficit: pt 12:28: [id number] 00 Medication knowledge/s Meds Active 2018-07 Mary garcia 2-17 [place] deficit: cg 12:28: [id number] 00 Medication potential Meds Active 2018-07 Mary clinically 2-17 [place] significant 12:28: [id number] medication 00 issue Musculoskel transfer Musculoske Active 2018-07 Mary etal assistance letal 2-17 [place] required 12:28: [id number] 00 Musculoskel requires Musculoske Active 2018-07 Mary etal human letal 2-17 [place] assist to 12:28: [id number] leave home 00 Cardio edema Cardiovasc Active [...] Social 2-27 [place] deficit - Services 10:00: [id number] pt 00 Social knowledge/s SERGIO: Active 2018-07 Nancy Services kill Social 2-27 [place] deficit - Services 10:00: [id number] cg 00 Social knowledge/s SERGIO: Unknown 2018-07 [place] Services kill Social 2-30 [place] deficit - Services 13:17: [id number] cg 00 Respiratory CPAP Respirator Active Abigail [...] mg tablet tablet atorvastati atorvastati 2018-07 Yes [place] Unknown Unknown n 20 mg n 20 mg 2- ,Goklu tablet tablet carvedilol carvedilol 2018-07 Yes [place] Unknown Unknown 25 mg 25 mg 2- Gokul SALAZAR tablet tablet DILT-XR 120 DILT-XR 120 2018-07 Yes [place] Unknown Unknown mg capsule, mg capsule, 2- ,Gokul extended extended release release isosorbide isosorbide 2018-07 Yes [place] Unknown Unknown mononitrate mononitrate 2- Gokul SALAZAR ER 30 mg ER 30 mg tablet,exte tablet,exte nded nded release 24 release 24 hr hr Symbicort Symbicort 2018-07 Yes [place] Unknown Unknown 160 mcg-4.5 160 mcg-4.5 2- Gokul SALAZAR mcg/actuati mcg/actuati on HFA on HFA aerosol aerosol inhaler inhaler Spiriva Spiriva 2018-07 Yes [place] Unknown Unknown with with 2- Gokul SALAZAR HandiHaler HandiHaler 18 mcg and 18 mcg and inhalation inhalation capsules capsules ipratropium ipratropium 2018-07 Yes [place] Unknown Unknown -albuterol -albuterol 2- Gokul SALAZAR 0.5 mg-3 0.5 mg-3 mg(2.5 mg mg(2.5 mg base)/3 mL base)/3 mL nebulizatio nebulizatio n soln n soln finasteride finasteride 2018-07 Yes [place] Unknown Unknown 5 mg tablet 5 mg [...] tablet ing tablet simethicone simethicone 2018-07 Yes [place] Unknown Unknown 80 mg 80 mg 2- Gokul SALAZAR chewable chewable tablet tablet omeprazole omeprazole 2018-07 Yes [place] Unknown Unknown 20 mg 20 mg 2 [...] magnesium) tablet tablet colchicine colchicine 2018-07 Yes [place] Unknown Unknown 0.6 mg 0.6 mg 08-23 Gokul SALAZAR tablet tablet cholecalcif cholecalcif 2018-07 Yes [place] Unknown Unknown murray murray 08-23 Gokul SALAZAR (vitamin (vitamin D3) 1,000 D3) 1,000 unit unit capsule capsule Tums 200 mg Tums 200 mg 2018-07 Yes [place] Unknown Unknown calcium calcium 08-23 Gokul SALAZAR (500 mg) (500 mg) chewable chewable tablet tablet oxygen oxygen 2018-07 Yes [place] Unknown Unknown 08-23 Gokul SALAZAR acetaminoph acetaminoph 2018-07 Yes [place] Unknown Unknown en 500 mg en 500 mg 08-29 Gokul SALAZAR tablet tablet azithromyci azithromyci 2018-07- Yes [place] Unknown Unknown n 250 mg n 250 mg 09-02 Gokul SALAZAR tablet tablet amoxicillin amoxicillin 2018-07 Yes [place] Unknown Unknown [id number] 09-02 Gokul SALAZAR mg-potassiu mg-potassiu m m clavulanate clavulanate 125 mg 125 mg tablet tablet diphenhydrA diphenhydrA 2018-07 Yes [place] Unknown Unknown MINE 25 mg MINE 25 mg 09-02 Gokul SALAZAR tablet tablet Zithromax Zithromax 2018-07 Yes [place] Unknown Unknown 250 mg 250 mg 09-03 [...]
--- OUTSIDE RECORDS SUMMARY | 2019-08-10 19:16 | XMS REPORT ---
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 Diagnosis Active Abigail (current) (current) Carrier [...] Resolve 2018-072019-08-02 Mary pain d 08-23 12:50:00 [place] 12:28: [id number] 00 Respiratory dyspnea Respirator Active 2018-07 Mary present y 08-23 [place] 12:28: [id number] 00 Respiratory oxygen Respirator Active 2018-07 Mary treatments y 08-23 [place] in home 12:28: [id number] 00 Respiratory lung sounds Respirator Active 2018-07 Mary deficit y 08-23 [place] 12:28: [id number] 00 Endo/Carlos diabetic Endo/Carlos Resolve 2018-072019-07-30 Mary foot care d 08-23 10:45:00 [place] 12:28: [id number] Sensory impaired Sensory Active 2018-07 Mary hearing 08-23 [place] 12:28: [id number] 00 Integument skin Integument Active 2018-07 Mary integrity 08-23 [place] risk 12:28: [id number] 00 Nutrition nutritional Nutrition Resolve 2018-072019-07-30 Mary restriction d 08-23 10:45:00 [place] s 12:28: [id number] 00 Elimination catheter Eliminatio Active 2018-07 Mary present n 08-23 [place] 12:28: [id number] 00 Elimination ostomy Eliminatio Resolve 2018-072019-06-24 Mary present n d 08-23 14:35:00 [place] 12:28: [id number] 00 Neuro confusion Neuro/Emot Resolve 2018-072019-08-02 Mary present ion d 08-23 12:50:00 [place] 12:28: [id number] 00 Activity ADL Activity Resolve 2018-072019-08-02 Mary assistance d 2- 12:50:00 [place] required 12:28: [id number] 00 Activity self-care Activity Resolve 2018-072019-07-30 Mary deficit d 2-17 10:45:00 [place] 12:28: [id number] 00 Safety structural Safety Active 2018-07 Mary barriers 08-23 [place] present 12:28: [id number] 00 Safety fall risk Safety Active 2018-07 Mary factor 08-23 [place] present 12:28: [id number] 00 Safety risk for Safety Active 2018-07 Mary hospitaliza 08-23 [place] tion 12:28: [id number] 00 Safety can be left Safety Active 2018-07 Mary alone for 08-23 [place] only short 12:28: [id number] periods 00 Medication oral med Meds Resolve 2018-072019-08-02 Mary assistance d 2- 12:50:00 [place] required 12:28: [id number] 00 Medication knowledge/s Meds Resolve 2018-072019-08-02 Mary kill d 2- 12:50:00 [place] deficit: pt 12:28: [id number] 00 Medication knowledge/s Meds Resolve 2018-072019-08-02 Mary kill d 2- 12:50:00 [place] deficit: cg 12:28: [id number] 00 Medication potential Meds Resolve 2018-072019-08-02 Mary clinically d - 12:50:00 [place] significant 12:28: [id number] medication 00 issue Musculoskel transfer Musculoske Active 2018-07 Mary etal assistance letal 08-23 [place] required 12:28: [id number] 00 Musculoskel requires Musculoske Active 2018-07 Mary etal human letal 08-23 [place] assist to 12:28: [id number] leave home 00 Cardio edema Cardiovasc Active [...] Social 2-27 [place] deficit - Services 10:00: [id number] pt 00 Social knowledge/s SERGIO: Active 2018-07 Nancy Services kill Social 2- [place] deficit - Services 10:00: [id number] cg 00 Social knowledge/s SERGIO: Unknown 2018-07 Alicia Services kill Social 2-30 [place] deficit - Services 13:17: [id number] cg 00 Cardio knowledge/s Cardiovasc Active 2019-0 [...] (SIG) Name Name furosemide furosemide 2018-07 Yes [place] Unknown Unknown 20 mg 20 mg 2-17 Gokul SALAZAR tablet tablet thiamine thiamine 2018-07 Yes [place] Unknown Unknown HCl HCl 2- Gokul SALAZAR (vitamin (vitamin B1) 100 mg B1) 100 mg tablet tablet atorvastati atorvastati 2018-07 Yes Humza Unknown Unknown n 20 mg n 20 mg 2- ,Gokul tablet tablet carvedilol carvedilol 2018-07 Yes [place] Unknown Unknown 25 mg 25 mg 2- Gokul SALAZAR tablet tablet DILT-XR 120 DILT-XR 120 2018-07 Yes Humza Unknown Unknown mg capsule, mg capsule, 2- ,Gokul extended extended release release isosorbide isosorbide 2018-07 Yes [place] Unknown Unknown mononitrate mononitrate 2- ,Gokul ER 30 mg ER 30 mg tablet,exte tablet,exte nded nded release 24 release 24 hr hr Symbicort Symbicort 2018-07 Yes [place] Unknown Unknown 160 mcg-4.5 160 mcg-4.5 2- Gokul SALAZAR mcg/actuati mcg/actuati on HFA on HFA aerosol aerosol inhaler inhaler Spiriva Spiriva 2018-07 Yes [place] Unknown Unknown with with 2- Gokul SALAZAR HandiHaler HandiHaler 18 mcg and 18 mcg and inhalation inhalation capsules capsules ipratropium ipratropium 2018-07 Yes [place] Unknown Unknown -albuterol -albuterol 2- Gokul SALAZAR 0.5 mg-3 0.5 mg-3 mg(2.5 mg mg(2.5 mg base)/3 mL base)/3 mL nebulizatio nebulizatio n soln n soln finasteride finasteride 2018-07 Yes [place] Unknown Unknown 5 mg tablet 5 mg tablet 2- Gokul SALAZAR sertraline sertraline 2018-07 Yes Humza Unknown Unknown 100 mg 100 mg 2- Gokul SALAZAR tablet tablet tamsulosin tamsulosin 2018-07 Yes Humza Unknown Unknown 0.4 mg 0.4 mg 2- Gokul SALAZAR capsule capsule ondansetron ondansetron 2018-07 Yes [place] Unknown Unknown 4 mg 4 mg 2- Gokul SALAZAR disintegrat disintegrat ing tablet ing tablet simethicone simethicone 2018-07 Yes Humza Unknown Unknown 80 mg 80 mg 2- Gokul SALAZAR chewable chewable tablet tablet omeprazole omeprazole 2018-07 Yes [place] Unknown Unknown 20 mg 20 mg 2 Gokul SALAZAR capsule,del capsule,del ayed ayed release release metFORMIN metFORMIN 2018-07 Yes [place] Unknown Unknown 1,000 mg 1,000 mg 2 Gokul SALAZAR tablet tablet levothyroxi levothyroxi 2018-07 Yes [place] Unknown Unknown ne 50 mcg ne 50 mcg 2 Gokul SALAZAR tablet tablet Lactobac. Lactobac. 2018-07 Yes [place] Unknown Unknown acidophilus acidophilus 08-23 Gokul SALAZAR [...] magnesium) tablet tablet colchicine colchicine 2018-07 Yes [place] Unknown Unknown 0.6 mg 0.6 mg 08-23 Gokul SALAZAR tablet tablet cholecalcif cholecalcif 2018-07 Yes Humza Unknown Unknown murray murray 08-23 Gokul SALAZAR (vitamin (vitamin D3) 1,000 D3) 1,000 unit unit capsule capsule Tums 200 mg Tums 200 mg 2018-07 Yes Humza Unknown Unknown calcium calcium 08-23 Gokul SALAZAR (500 mg) (500 mg) chewable chewable tablet tablet oxygen oxygen 2018-07 Yes [place] Unknown Unknown 08-23 Gokul SALAZAR acetaminoph acetaminoph 2018-07 Yes [place] Unknown Unknown en 500 mg en 500 mg 08-29 Gokul SALAZAR tablet tablet azithromyci azithromyci 2018-07- Yes Humza Unknown Unknown n 250 mg n 250 mg 09-02 Gokul SALAZAR tablet tablet amoxicillin amoxicillin 2018-07- Yes [place] Unknown Unknown [id number] 09-02 Gokul SALAZAR [...]
--- OUTSIDE RECORDS SUMMARY | 2019-08-10 19:16 | XMS REPORT ---
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) Carrier [...] Pain Mgmt Active 2018-07 Mary pain 2-17 [place] 12:28: [id number] 00 Respiratory dyspnea Respirator Active 2018-07 Mary present y 08-23 [place] 12:28: [id number] 00 Respiratory oxygen Respirator Active 2018-07 Mary treatments y 08-23 [place] in home 12:28: [id number] Respiratory lung sounds Respirator Active 2018-07 Mary deficit y 08-23 [place] 12:28: [id number] 00 Endo/Carlos diabetic Endo/Carlos Active 2018-07 Mary foot care 08-23 [place] 12:28: [id number] Sensory impaired Sensory Active 2018-07 Mary hearing 08-23 [place] 12:28: [id number] 00 Integument skin Integument Active 2018-07 Mary integrity 08-23 [place] risk 12:28: [id number] 00 Nutrition nutritional Nutrition Active 2018-07 Mary restriction 08-23 [place] s 12:28: [id number] 00 Elimination catheter Eliminatio Active 2018-07 Mary present n 08-23 [place] 12:28: [id number] 00 Elimination ostomy Eliminatio Resolve 2018-072019-06-24 Mary present n d 08-23 14:35:00 [place] 12:28: [id number] 00 Neuro confusion Neuro/Emot Active 2018-07 Mary present ion 08-23 [place] 12:28: [id number] 00 Activity ADL Activity Active 2018-07 Mary assistance 08-23 [place] required 12:28: [id number] 00 Activity self-care Activity Active 2018-07 Mary deficit 08-23 [place] 12:28: [id number] 00 Safety structural Safety Active 2018-07 Mary barriers 08-23 [place] present 12:28: [id number] 00 Safety fall risk Safety Active 2018-07 Mary factor 08-23 [place] present 12:28: [id number] 00 Safety risk for Safety Active 2018-07 Mary hospitaliza 08-23 [place] tion 12:28: [id number] 00 Safety can be left Safety Active 2018-07 Mary alone for 08-23 [place] only short 12:28: [id number] periods 00 Medication oral med Meds Active 2018-07 Mary assistance 08-23 [place] required 12:28: [id number] 00 Medication knowledge/s Meds Active 2018-07 Mary kill 08-23 [place] deficit: pt 12:28: [id number] 00 Medication knowledge/s Meds Active 2018-07 Mary garcia 2-17 [place] deficit: cg 12:28: [id number] 00 Medication potential Meds Active 2018-07 Mary clinically 2-17 [place] significant 12:28: [id number] medication 00 issue Musculoskel transfer Musculoske Active 2018-07 Mary etal assistance letal 2-17 [place] required 12:28: [id number] 00 Musculoskel requires Musculoske Active 2018-07 Mary etal human letal 2-17 [place] assist to 12:28: [id number] leave home 00 Cardio edema Cardiovasc Active [...] Social 2-27 [place] deficit - Services 10:00: [id number] pt 00 Social knowledge/s SERGIO: Active 2018-07 Nancy Services kill Social 2-27 [place] deficit - Services 10:00: [id number] cg 00 Social knowledge/s SERGIO: Unknown 2018-07 Alicia Services kill Social 2-30 [place] deficit - Services 13:17: [id number] cg 00 Respiratory CPAP Respirator Active Abigail [...] mg tablet tablet atorvastati atorvastati 2018-07 Yes [place] Unknown Unknown n 20 mg n 20 mg 2- ,Gokul tablet tablet carvedilol carvedilol 2018-07 Yes [place] Unknown Unknown 25 mg 25 mg 2- Gokul SALAZAR tablet tablet DILT-XR 120 DILT-XR 120 2018-07 Yes [place] Unknown Unknown mg capsule, mg capsule, 2- ,Gokul extended extended release release isosorbide isosorbide 2018-07 Yes Humza Unknown Unknown mononitrate mononitrate 2- Gokul SALAZAR ER 30 mg ER 30 mg tablet,exte tablet,exte nded nded release 24 release 24 hr hr Symbicort Symbicort 2018-07 Yes [place] Unknown Unknown 160 mcg-4.5 160 mcg-4.5 2- Gokul SALAZAR mcg/actuati mcg/actuati on HFA on HFA aerosol aerosol inhaler inhaler Spiriva Spiriva 2018-07 Yes [place] Unknown Unknown with with 2- Gokul SALAZAR HandiHaler HandiHaler 18 mcg and 18 mcg and inhalation inhalation capsules capsules ipratropium ipratropium 2018-07 Yes [place] Unknown Unknown -albuterol -albuterol 2- Gokul SALAZAR 0.5 mg-3 0.5 mg-3 mg(2.5 mg mg(2.5 mg base)/3 mL base)/3 mL nebulizatio nebulizatio n soln n soln finasteride finasteride 2018-07 Yes [place] Unknown Unknown 5 mg tablet 5 mg [...] tablet ing tablet simethicone simethicone 2018-07 Yes [place] Unknown Unknown 80 mg 80 mg 2- Gokul SALAZAR chewable chewable tablet tablet omeprazole omeprazole 2018-07 Yes [place] Unknown Unknown 20 mg 20 mg 2 [...] magnesium) tablet tablet colchicine colchicine 2018-07 Yes [place] Unknown Unknown 0.6 mg 0.6 mg 08-23 Gokul SALAZAR tablet tablet cholecalcif cholecalcif 2018-07 Yes [place] Unknown Unknown murray murray 08-23 Gokul SALAZAR (vitamin (vitamin D3) 1,000 D3) 1,000 unit unit capsule capsule Tums 200 mg Tums 200 mg 2018-07 Yes [place] Unknown Unknown calcium calcium 08-23 Gokul SALAZAR (500 mg) (500 mg) chewable chewable tablet tablet oxygen oxygen 2018-07 Yes Humza Unknown Unknown 08-23 Gokul SALAZAR acetaminoph acetaminoph 2018-07 Yes [place] Unknown Unknown en 500 mg en 500 mg 08-29 Gokul SALAZAR tablet tablet azithromyci azithromyci 2018-07- Yes [place] Unknown Unknown n 250 mg n 250 mg 09-02 Gokul SALAZAR tablet tablet amoxicillin amoxicillin 2018-07 Yes [place] Unknown Unknown [phone] 09-02 Gokul SALAZAR mg-potassiu mg-potassiu m m clavulanate clavulanate 125 mg 125 mg tablet tablet diphenhydrA diphenhydrA 2018-07 Yes [place] Unknown Unknown MINE 25 mg MINE 25 mg 09-02 Gokul SALAZAR tablet tablet Zithromax Zithromax 2018-07 Yes [place] Unknown Unknown 250 mg 250 mg [...]
[2019-08-10] MEDS ORDERED: Albuterol/Ipratropium NEB.SOL* Albuterol 2.5 MG/Ipratropium 0.5 MG 3 ML INH ONE ×2 (19:18→20:15)
--- NOTE | 2019-08-10 19:24 | ED ---
Shortness of Breath - HPI Summary HPI Summary: Patient is a 74 y/o M w/ Hx of COPD, PNA, CHF, afib, HTN, low thyroid, diabetes , PTSD, and GERD who presents to [facility] via EMS with chief complaint of SOB. Patient reports that he has been "belly breathing". When asked if this presentation of Sx feels similar to previous COPD episodes, the patient replies , "Yeah I guess so". Patient states that he had some chest pressure earlier as well. No fevers noted, patient had flu shot this season. Patient is on 2 L o2 at home. 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 Home medications and allergies are reviewed. - History of Current Complaint Chief Complaint: EDShortnessOfBreath Time Seen by Provider: 08/10/19 19:12 Hx Obtained From: Patient Onset/Duration: Still Present Timing: Constant Dyspnea At: Rest Associated Signs & Symptoms: Chest Pain Unrelated to Cough - Allergy/Home Medications Allergies/Adverse Reactions: Allergies Allergy/AdvReac Type Severity Reaction Status Date / Time No Known Allergies Allergy Verified 06/04/19 09:17 PMH/Surg Hx/FS Hx/Imm Hx Endocrine/Hematology History: Reports: Hx Diabetes Denies: Hx Anticoagulant Therapy, Hx Thyroid Disease Cardiovascular History: Reports: Hx Atrial Fibrillation, Hx Congestive Heart Failure, Hx Hypertension, Other Cardiovascular Problems/Disorders - afib Denies: Hx Angina, Hx Pacemaker/ICD Respiratory History: Reports: Hx Asthma, Hx Chronic Obstructive Pulmonary Disease (COPD) - YES 02 DEPENDENT AT HOME, Other Respiratory Problems/Disorders - Agent orange exposure History: Reports: Hx Benign Prostatic Hyperplasia Denies: Hx Renal Disease Musculoskeletal History: Reports: Hx Gout Sensory History: Reports: Hx Contacts or Glasses Denies: Hx Cataracts, Hx Glaucoma, Hx Legally Blind, Hx Deafness, Hx Hearing Aid, Other Sensory Impairments Opthamlomology History: Reports: Hx Contacts or Glasses Denies: Hx Cataracts, Hx Glaucoma, Hx Legally Blind, Other Sensory Impairments Neurological History: Denies: Hx Dementia, Hx Seizures Psychiatric History: Reports: Hx Post Traumatic Stress Disorder - [place] war Denies: Hx Panic Disorder, Hx Substance Abuse - Surgical History Surgery Procedure, Year, and Place: None Hx Anesthesia Reactions: No Infectious Disease History: Yes Infectious Disease History: Denies: Hx Hepatitis, Hx Human Immunodeficiency Virus (HIV), Hx of Known/ Suspected MRSA, Traveled Outside the [place] in Last 30 Days - Family History Known Family History: Negative: Diabetes - Social History Alcohol Use: Occasionally Alcohol Amount: 4-5 per day Hx Substance Use: No Substance Use Type: Reports: None Hx Tobacco Use: Yes Smoking Status (MU): Former Smoker Review of Systems Negative: Fever Positive: Chest Pain Positive: Shortness Of Breath All Other Systems Reviewed And Are Negative: Yes Physical Exam - Summary Physical Exam Summary: Constitutional: Well-developed, Well-nourished, Alert. (-) Distressed Skin: Warm, Dry HENT: Normocephalic; Atraumatic Eyes: Conjunctiva normal Neck: Musculoskeletal ROM normal neck. (-) JVD, (-) Stridor, (-) Tracheal deviation Cardio: Rhythm regular, rate normal, Heart sounds normal; Intact distal pulses; Radial pulses are 2+ and symmetric. (-) Murmur Pulmonary/Chest wall: Mild expiratory wheezing, capable of speaking in full sentences. (-) Respiratory distress, (-) Rales Abd: Soft, (-) tenderness, (-) Distension, (-) Guarding, (-) Rebound Musculoskeletal: (-) Edema Lymph: (-) Cervical adenopathy Neuro: Alert, Oriented x3 Psych: Mood and affect Normal Triage Information Reviewed: Yes Vital Signs On Initial Exam: Initial Vitals Temp Pulse Resp BP Pulse Ox 98.2 F 95 25 211/112 95 08/10/19 19:08 08/10/19 19:08 08/10/19 19:08 08/10/19 19:08 08/10/19 19:08 Vital Signs Reviewed: Yes Procedures - Sedation Patient Received Moderate/Deep Sedation with Procedure: No Diagnostics - Vital Signs Vital Signs Temp Pulse Resp BP Pulse Ox 08/10/19 19:08 98.2 F 95 25 211/112 95 - Laboratory Result Diagrams: 08/11/19 06:44 08/11/19 06:44 Lab Statement: Any lab studies that have been ordered have been reviewed, and results considered in the medical decision making process. - Radiology CXR Radiology Interpretation Completed By: ED Physician Summary of Radiographic Findings: Right lower lobe infiltrate, pending official report. - EKG 1923 Cardiac Rate: Other Rate - afib with rate of 90 BPM EKG Rhythm: Atrial Fibrillation Summary of EKG Findings: EKG showed afib with rate of 90 BPM, no STEMI. ED physician has reviewed and interpreted this EKG. Re-Evaluation - Re-Evaluation First Eval Re-Evaluation Time: 20:15 Change: Improved Comment: Patient reports feeling slightly better, will do another breathing treatment. Course/Dx - Course Course Of Treatment: Patient is here with shortness of breath in the setting of known COPD. Patient is borderline hypoxemic on his typical oxygen level. Patient had a chest x-ray showed a right lower lobe pneumonia. Patient was influenza positive. Patient was given antibiotics and Tamiflu by myself. Patient was admitted to the hospital - Diagnoses Provider Diagnoses: Influenza, PNA (pneumonia), COPD (chronic obstructive pulmonary disease), Hypoxemia - Physician Notifications Discussed Care of Patient With: Kaity Pickens Time Discussed With Above Provider: 20:42 Instructed by Provider To: Other - Patient's case was discussed with Dr. Pickens , Dr. Pickens accepts for admission. Discharge ED - Sign-Out/Discharge Documenting (check all that apply): Patient Departure - admit - Discharge Plan Condition: Stable Disposition: ADMITTED TO [facility] - Billing Disposition and Condition Condition: STABLE Disposition: Admitted to [facility] - Attestation Statements Document Initiated by Scribe: Yes Documenting Scribe: YAMILETH HALE Provider For Whom Yaquelin is Documenting (Include Credential): BRIAN FELIX MD Scribe Attestation: YAMILETH Epps, scribed for BRIAN FELIX MD on 08/11/19 at 2134. Scribe Documentation Reviewed: Yes Provider Attestation: The documentation as recorded by the YAMILETH pal accurately reflects the service I personally performed and the decisions made by me, BRIAN FELIX MD Status of Scribe Document: Viewed
[2019-08-10] MEDS ORDERED: methylPREDNISolone 125 MG* 2 ML VIAL IV ONE (20:15)
[2019-08-10 20:16] LABS: Influenza B Molecular POSITIVE (Negative)
[2019-08-10 20:17] LABS: ABS Eosinophils 0.1 10^3/ul (0-0.6); ABS Lymphocytes 0.5 10^3/ul (1.0-4.8); ABS Monocytes 0.2 10^3/ul (0-0.8); Hematocrit 37 % (42-52); Hemoglobin 12.6 g/dL (14.0-18.0); Lymphocyte % 16.2 %; Mean Corpuscular HGB Conc 34 g/dL (31-36); Mean Corpuscular Hemoglobin 28 pg (27-31); Mean Corpuscular Volume 83 fL (80-94); Mean Platelet Volume 7.2 fL (7.4-10.4); Nucleated Red Blood Cells % 0.1; Platelet Count 221 10^3/uL (150-450); Red Blood Count 4.47 10^6 /uL (4.18-5.48); Red Cell Distribution Width 14 % (10-15); White Blood Count 2.8 10^3/uL (3.5-10.8)
[2019-08-10] MEDS ORDERED: Oseltamivir CAP* 75 MG CAP PO ONE (20:21)
[2019-08-10] MEDS ORDERED: Azithromycin 500 mg/250 ml NS 500 MG/250 ML BAG IVPB ONE (20:22)
[2019-08-10] MEDS ORDERED: cefTRIAXone(*) 1 GM in NS 0.9% 50 ML* 50 ML IVPB ONE (20:22)
[2019-08-10 20:35] LABS: Albumin 3.9 g/dL (3.2-5.2); Albumin/Globulin Ratio 1.3 (1-3); BUN/Creatinine Ratio 12.3 (8-20); EGFR African American 146.1 (>60); EGFR Non-African American 120.8 (>60); Total Bilirubin 0.4 mg/dL (0.2-1.0); Total Protein 6.9 g/dL (6.4-8.9)
[2019-08-10 20:36] LABS: Troponin I 0.01 ng/mL (<0.03)
[2019-08-10] MEDS ORDERED: hydrALAZINE IV* 20 MG/ML VIAL IV SLOW PU ONE (20:54)
[2019-08-10] MEDS ORDERED: Ondansetron INJ* 2 MG/ML VIAL IV PRN (21:14)
[2019-08-10] MEDS ORDERED: Senna TAB 8.6 mg* TAB PO PRN (21:14)
[2019-08-10] MEDS ORDERED: Al Hydrox/Mg Hydrox/Simet LIQ* 30 ML UDC PO PRN (21:14)
[2019-08-10] MEDS ORDERED: Acetaminophen TAB* 325 MG PO PRN (21:14)
[2019-08-10] MEDS ORDERED: Albuterol HFA INHALER* 8 gm MDI INH PRN (21:24)
[2019-08-10] MEDS ORDERED: Dextrose 50% Syringe 50 ML* 25 GM/50 ML SYRINGE IV PUSH PRN (21:41)
[2019-08-10] MEDS ORDERED: Acetaminophen TAB* 325 MG PO ONE (21:51)
[2019-08-10] MEDS ORDERED: Albuterol/Ipratropium NEB.SOL* Albuterol 2.5 MG/Ipratropium 0.5 MG 3 ML INH SCH (23:00)
[2019-08-10] MEDS: Enoxaparin(*) 40 MG/0.4 ML SYR SUBCUT SCH (23:24)
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
[2019-08-11] MEDS ORDERED: Albuterol/Ipratropium NEB.SOL* Albuterol 2.5 MG/Ipratropium 0.5 MG 3 ML INH SCH (01:00)
[2019-08-11] MEDS: Albuterol 2.5 MG/3 ML NEB.SOL* (0.083%) INH SCH ×4 (01:08→20:18)
[2019-08-11] MEDS: hydrALAZINE IV* 20 MG/ML VIAL IV SLOW PU PRN (03:29)
[2019-08-11] MEDS: Levothyroxine TAB* 50 MCG TAB PO SCH (05:31)
[2019-08-11 07:04] LABS: Hematocrit 39 % (42-52); Hemoglobin 13.1 g/dL (14.0-18.0); Mean Corpuscular HGB Conc 34 g/dL (31-36); Mean Corpuscular Hemoglobin 28 pg (27-31); Mean Corpuscular Volume 82 fL (80-94); Mean Platelet Volume 7.4 fL (7.4-10.4); Platelet Count 255 10^3/uL (150-450); Red Blood Count 4.69 10^6 /uL (4.18-5.48); Red Cell Distribution Width 14 % (10-15); White Blood Count 1.8 10^3/uL (3.5-10.8)
[2019-08-11 07:11] LABS: BUN/Creatinine Ratio 12.3 (8-20); Calcium 8.9 mg/dL (8.6-10.3); EGFR Non-African American 140.5 (>60); Potassium 3.9 mmol/L (3.5-5.0)
[2019-08-11 07:49] LABS: ABS Lymphocytes 0.4 10^3/ul (1.0-4.8); ABS Monocytes 0.2 10^3/ul (0-0.8); ABS Neutrophils 1.2 10^3/ul (1.5-7.7); Eosinophil % 0.1 %; Lymphocyte % 21.5 %; Nucleated Red Blood Cells % 0.2
[2019-08-11] MEDS: SPIRIVA Respimat* (tiotropium) 2.5 mcg/inh Inhaler INH SCH (08:27)
[2019-08-11] MEDS: Mometasone/Formoter 200/5 MDI INH SCH ×2 (08:28→20:17)
[2019-08-11] MEDS ORDERED: methylPREDNISolone SOD 40 MG* 1 ML VIAL IV SCH (09:00)
[2019-08-11] MEDS: Thiamine TAB* 100 MG TAB PO SCH (09:40)
[2019-08-11] MEDS: Isosorbide Mononitrate ER TAB* 30 MG PO SCH (09:41)
[2019-08-11] MEDS: Lactobacillus Acidophilus* 1 TAB PO SCH (09:41)
[2019-08-11] MEDS: Sertraline* 50 MG TAB PO SCH (09:41)
[2019-08-11] MEDS: Carvedilol TAB* 25 MG PO SCH ×2 (09:41→20:46)
[2019-08-11] MEDS: Atorvastatin* 10 MG TAB PO SCH (09:41)
[2019-08-11] MEDS: Furosemide TAB* 40 MG PO SCH (09:41)
[2019-08-11] MEDS: Folic Acid TAB* 1 MG PO SCH (09:41)
[2019-08-11] MEDS: Magnesium Oxide TAB* 400 MG PO SCH (09:41)
[2019-08-11] MEDS: Pantoprazole TAB * 40 MG TAB PO SCH (09:41)
[2019-08-11] MEDS: Finasteride TAB* 5 MG PO SCH (09:41)
[2019-08-11] MEDS: Oseltamivir CAP* 75 MG CAP PO SCH ×2 (09:41→20:46)
[2019-08-11] MEDS: Tamsulosin CAP* 0.4 MG PO SCH (09:41)
[2019-08-11] MEDS: Insulin LISPRO* 1 UNITS UNIT SUBCUT SCH ×3 (09:42→17:50)
[2019-08-11] MEDS: Diltiazem CD CAP* 120 MG PO SCH (09:42)
[2019-08-11] MEDS ORDERED: Benzocaine/Menthol LOZ* 1 LOZENGE PO PRN (10:00)
--- NOTE | 2019-08-11 14:25 | PN ---
Subjective Date of Service: 08/11/19 Interval History: Patient lying in bed. No dyspnea. Reading the paper and eating breakfast. Reports he feels much better today compared to last evening. He is currently on home rate of supplemental O2. Has not been up yet today to ambulate. Reports occasional cough. Denies cp, sob, n/v/d, fever, chills, weakness. Objective Active Medications: Acetaminophen (Tylenol Tab*) 650 mg PO Q4H PRN PRN Reason: MILD PAIN or TEMP > 100.4 Al Hydrox/Mg Hydrox/Simethicone (Maalox Plus*) 30 ml PO Q6H PRN PRN Reason: INDIGESTION Albuterol (Ventolin Hfa Inhaler*) 2 puff INH Q4H PRN PRN Reason: SOB/WHEEZING Albuterol (Ventolin 2.5 Mg/3 Ml Neb.Nya*) 2.5 mg INH [id number] AWAKE [facility] Last Admin: 08/11/19 13:34 Dose: Not Given Atorvastatin Calcium (Lipitor*) 10 mg PO DAILY [facility] Last Admin: 08/11/19 09:41 Dose: 10 mg Carvedilol (Coreg Tab*) 25 mg PO BID [facility] Last Admin: 08/11/19 09:41 Dose: 25 mg Dextrose (D50w Syringe 50 Ml*) 12.5 gm IV PUSH .FOR FS < 60 - SS PRN PRN Reason: FS < 60 Diltiazem HCl (Cardizem Cd Cap*) 120 mg PO DAILY [facility] Last Admin: 08/11/19 09:42 Dose: 120 mg Enoxaparin Sodium (Lovenox(*)) 40 mg SUBCUT BEDTIME [facility] Last Admin: 08/10/19 23:24 Dose: Not Given Finasteride (Proscar Tab*) 5 mg PO DAILY [facility] Last Admin: 08/11/19 09:41 Dose: 5 mg Folic Acid (Folvite Tab*) 1 mg PO DAILY [facility] Last Admin: 08/11/19 09:41 Dose: 1 mg Furosemide (Lasix Tab*) 40 mg PO DAILY [facility] Last Admin: 08/11/19 09:41 Dose: 40 mg Hydralazine HCl (Apresoline Iv*) 5 mg IV SLOW PU Q6H PRN PRN Reason: SYSTOLIC BP GREATER THAN: Last Admin: 08/11/19 03:29 Dose: 5 mg Ceftriaxone Sodium 1 gm/ (Sodium Chloride) 50 mls @ 100 mls/hr IVPB Q24H [facility] Azithromycin 250 mg/ Sodium (Chloride) 250 mls @ 250 mls/hr IVPB Q24H [facility] Insulin Human Lispro (Humalog*) 0 units SUBCUT AC [facility]; Protocol Last Admin: 08/11/19 13:26 Dose: 6 unit Isosorbide Mononitrate (Imdur Er Tab*) 30 mg PO DAILY [facility] Last Admin: 08/11/19 09:41 Dose: 30 mg Lactobacillus Rhamnosus (Lactobacillus Acidophilus*) 1 tab PO DAILY [facility] Last Admin: 08/11/19 09:41 Dose: 1 tab Levothyroxine Sodium (Synthroid Tab*) 50 mcg PO DAILY@0600 [facility] Last Admin: 08/11/19 05:31 Dose: 50 mcg Magnesium Oxide (Magox 400 Tab*) 800 mg PO DAILY [facility] Last Admin: 08/11/19 09:41 Dose: 800 mg Methylprednisolone Sodium Succinate (Solu-Medrol 40 Mg) 20 mg IV DAILY [facility] Last Admin: 08/11/19 09:40 Dose: 20 mg Mometasone Furoate/Formoterol Fumar (Dulera 200/5 Mdi*) 2 puff INH BID [facility]; Protocol Last Admin: 08/11/19 08:28 Dose: 2 puff Nystatin (Nystatin Top Powder*) 1 applic TOPICAL TID [facility] Ondansetron HCl (Zofran Inj*) 4 mg IV Q4H PRN PRN Reason: NAUSEA/VOMITING Oseltamivir Phosphate (Tamiflu Cap*) 75 mg PO BID [facility] Stop: 08/15/19 21:01 Last Admin: 08/11/19 09:41 Dose: 75 mg Pantoprazole Sodium (Protonix Tab*) 40 mg PO DAILY [facility] Last Admin: 08/11/19 09:41 Dose: 40 mg Senna (Senokot 8.6 Mg Tab*) 1 tab PO BID PRN PRN Reason: CONSTIPATION Sertraline HCl (Zoloft*) 50 mg PO DAILY [facility] Last Admin: 08/11/19 09:41 Dose: 50 mg Tamsulosin HCl (Flomax Cap*) 0.4 mg PO DAILY [facility] Last Admin: 08/11/19 09:41 Dose: 0.4 mg Thiamine HCl (Vitamin B-1 Tab*) 100 mg PO DAILY [facility] Last Admin: 08/11/19 09:40 Dose: 100 mg Throat Lozenges (Chloraseptic Adeline*) 1 adeline PO Q6H PRN PRN Reason: SORE THROAT Tiotropium [place] (Spiriva Respimat 2.5 Mcg) 2 puff INH DAILY [facility] Last Admin: 08/11/19 08:27 Dose: 2 puff Vital Signs - 8 hr 08/11/19 08/11/19 08/11/19 07:15 08:00 11:15 Temperature 97.5 F 97.7 F Pulse Rate 90 89 Respiratory 19 18 19 Rate Blood Pressure 166/94 152/89 (mmHg) O2 Sat by Pulse 97 98 Oximetry Oxygen Devices in Use Now: Nasal Cannula Appearance: Comfortable, NAD Eyes: No Scleral Icterus Ears/Nose/Mouth/Throat: Clear Oropharnyx, Mucous Membranes Moist Neck: NL Appearance and Movements; NL JVP Respiratory: Symmetrical Chest Expansion and Respiratory Effort, Clear to Auscultation Cardiovascular: NL Sounds; No Murmurs; No JVD, RRR, No Edema Abdominal: NL Sounds; No Tenderness; No Distention Lymphatic: No Cervical Adenopathy Extremities: No Edema Skin: No Rash or Ulcers Neurological: Alert and Oriented x 3, NL Muscle Strength and Tone Nutrition: Taking PO's Result Diagrams: 08/11/19 06:44 08/11/19 06:44 Additional Lab and Data: Laboratory Results - last 24 hr 08/10/19 08/10/19 08/10/19 19:48 20:01 20:10 WBC 2.8 L RBC 4.47 Hgb 12.6 L Hct 37 L MCV 83 MCH 28 MCHC 34 RDW 14 Plt Count 221 MPV 7.2 L Neut % (Auto) 71.1 Lymph % (Auto) 16.2 [place] % (Auto) 8.1 Eos % (Auto) 4.0 Baso % (Auto) 0.6 Absolute Neuts (auto) 2.0 Absolute Lymphs (auto) 0.5 L Absolute Monos (auto) 0.2 Absolute Eos (auto) 0.1 Absolute Basos (auto) 0.0 Absolute Nucleated RBC 0.0 Nucleated RBC % 0.1 Patient Temperature Not Reportable ABG pH 7.41 ABG pH (Temp Correct) Not Reportable ABG pCO2 53 H ABG pCO2 (Temp Corrct Not Reportable ABG pO2 77 L ABG pO2 (Temp Correct Not Reportable ABG HCO3 30.6 ABG O2 Saturation 97.5 ABG Base Excess 7.3 H Respiration Rate Not Reportable O2 Delivery Device N/c Ventilator Type Not Reportable Vent Mode Not Reportable FiO2 Not Reportable Inspiratory Time Not Reportable PEEP Not Reportable Pressure Support Not Reportable Pressure Control Not Reportable EPAP Not Reportable IPAP Not Reportable BiPAP Not Reportable Sodium Potassium Chloride Carbon Dioxide Anion Gap BUN Creatinine Est GFR ( Amer) Est GFR (Non-Af Amer) BUN/Creatinine Ratio Glucose POC Glucose (mg/dL) Lactic Acid Calcium Total Bilirubin AST ALT Alkaline Phosphatase Troponin I B-Natriuretic Peptide Total Protein Albumin Globulin Albumin/Globulin Ratio Influenza A (Rapid) Not Reportable Influenza B (Rapid) Positive A 08/10/19 08/10/19 08/10/19 20:10 20:10 21:21 WBC RBC Hgb Hct MCV MCH MCHC RDW Plt Count MPV Neut % (Auto) Lymph % (Auto) [place] % (Auto) Eos % (Auto) Baso % (Auto) Absolute Neuts (auto) Absolute Lymphs (auto) Absolute Monos (auto) Absolute Eos (auto) Absolute Basos (auto) Absolute Nucleated RBC Nucleated RBC % Patient Temperature ABG pH ABG pH (Temp Correct) ABG pCO2 ABG pCO2 (Temp Corrct ABG pO2 ABG pO2 (Temp Correct ABG HCO3 ABG O2 Saturation ABG Base Excess Respiration Rate O2 Delivery Device Ventilator Type Vent Mode FiO2 Inspiratory Time PEEP Pressure Support Pressure Control EPAP IPAP BiPAP Sodium 137 Potassium 4.0 Chloride 96 L Carbon Dioxide 35 H Anion Gap 6 BUN 8 Creatinine 0.65 L Est GFR ( Amer) 146.1 Est GFR (Non-Af Amer) 120.8 BUN/Creatinine Ratio 12.3 Glucose 156 H POC Glucose (mg/dL) Lactic Acid 1.1 Calcium 9.0 Total Bilirubin 0.40 AST 27 ALT 25 Alkaline Phosphatase 75 Troponin I 0.01 B-Natriuretic Peptide 235 H Total Protein 6.9 Albumin 3.9 Globulin 3.0 Albumin/Globulin Ratio 1.3 Influenza A (Rapid) Influenza B (Rapid) 08/11/19 08/11/19 08/11/19 06:44 06:44 07:42 WBC 1.8 L RBC 4.69 Hgb 13.1 L Hct 39 L MCV 82 MCH 28 MCHC 34 RDW 14 Plt Count 255 MPV 7.4 Neut % (Auto) 68.9 Lymph % (Auto) 21.5 [place] % (Auto) 9.1 Eos % (Auto) 0.1 Baso % (Auto) 0.4 Absolute Neuts (auto) 1.2 L Absolute Lymphs (auto) 0.4 L Absolute Monos (auto) 0.2 Absolute Eos (auto) 0.0 Absolute Basos (auto) 0.0 Absolute Nucleated RBC 0.0 Nucleated RBC % 0.2 Patient Temperature ABG pH ABG pH (Temp Correct) ABG pCO2 ABG pCO2 (Temp Corrct ABG pO2 ABG pO2 (Temp Correct ABG HCO3 ABG O2 Saturation ABG Base Excess Respiration Rate O2 Delivery Device Ventilator Type Vent Mode FiO2 Inspiratory Time PEEP Pressure Support Pressure Control EPAP IPAP BiPAP Sodium 138 Potassium 3.9 Chloride 99 L Carbon Dioxide 32 Anion Gap 7 BUN 7 Creatinine 0.57 L Est GFR ( Amer) 170.0 Est GFR (Non-Af Amer) 140.5 BUN/Creatinine Ratio 12.3 Glucose 215 H POC Glucose (mg/dL) 231 H Lactic Acid Calcium 8.9 Total Bilirubin AST ALT Alkaline Phosphatase Troponin I B-Natriuretic Peptide Total Protein Albumin Globulin Albumin/Globulin Ratio Influenza A (Rapid) Influenza B (Rapid) 08/11/19 12:02 WBC RBC Hgb Hct MCV MCH MCHC RDW Plt Count MPV Neut % (Auto) Lymph % (Auto) [place] % (Auto) Eos % (Auto) Baso % (Auto) Absolute Neuts (auto) Absolute Lymphs (auto) Absolute Monos (auto) Absolute Eos (auto) Absolute Basos (auto) Absolute Nucleated RBC Nucleated RBC % Patient Temperature ABG pH ABG pH (Temp Correct) ABG pCO2 ABG pCO2 (Temp Corrct ABG pO2 ABG pO2 (Temp Correct ABG HCO3 ABG O2 Saturation ABG Base Excess Respiration Rate O2 Delivery Device Ventilator Type Vent Mode FiO2 Inspiratory Time PEEP Pressure Support Pressure Control EPAP IPAP BiPAP Sodium Potassium Chloride Carbon Dioxide Anion Gap BUN Creatinine Est GFR ( Amer) Est GFR (Non-Af Amer) BUN/Creatinine Ratio Glucose POC Glucose (mg/dL) 225 H Lactic Acid Calcium Total Bilirubin AST ALT Alkaline Phosphatase Troponin I B-Natriuretic Peptide Total Protein Albumin Globulin Albumin/Globulin Ratio Influenza A (Rapid) Influenza B (Rapid) Microbiology and Other Data: . Assess/Plan/Problems-Billing Assessment: 74 yr old with pmh of copd (on 2L chronic), HFpEF, htn, hld, dm2, afib, gerd, brando; who presented to the ED with sob and was found to have flu and pneumonia - Patient Problems (1) Influenza Comment: - Flu B positive - Cont Tamiflu (2) Pneumonia Comment: - CXR right lower lobe - Cont Ceftriaxone and Azithro (3) Acute and chronic respiratory failure Comment: - Improving as he is on home rate of supplemental O2 - Cont steriods, but convert to po - Hx of chronic respi failure. On 2L at home - Secondary to pneumonia/flu/copd - Cont abx and tamiflu - Cont nebulizers (4) Sepsis Comment: - Received fluid bolus, abx, and was [place] cultures. - Continue to have leukopenia. - Lactic wnl - No longer tachy - Afebrile (5) DM2 (diabetes mellitus, type 2) Comment: - Hold home Metformin - Cont SS (6) (HFpEF) heart failure with preserved ejection fraction Comment: - Appears euvolemic - Continue BB, CCB, imdur, furosemide - Daily weights and Strict I&Os (7) Hypothyroidism Comment: - Continue levothyroxine (8) HTN (hypertension) Comment: - Was hypertensive in ED and received hydralazine. Last dose 0300 - Currently closer to goal - Continue to monitor as may benefit from adding BP med in future (9) Atrial fibrillation SNOMED Code(s): 23338277 Comment: - Rate controled. - Cont home medications of BB and CCB - Monitor eletrolytes (10) DVT prophylaxis Comment: - Lovenox Attending: Clyde [place]
[2019-08-11] MEDS: Nystatin TOP POWDER* 15 GM BTL TOPICAL SCH ×2 (16:29→20:48)
[2019-08-11] MEDS ORDERED: cefTRIAXone(*) 1 GM in NS 0.9% 50 ML* 50 ML IVPB SCH ×2 (20:00→21:00)
[2019-08-11] MEDS: Enoxaparin(*) 40 MG/0.4 ML SYR SUBCUT SCH (20:13)
[2019-08-11] MEDS ORDERED: Azithromycin IV(*) 250 MG in NS 0.9% 250 ML* 250 ML IVPB SCH (20:30)
[2019-08-12] MEDS: Albuterol 2.5 MG/3 ML NEB.SOL* (0.083%) INH SCH ×2 (00:45→07:07)
[2019-08-12] MEDS: Levothyroxine TAB* 50 MCG TAB PO SCH (06:08)
[2019-08-12] MEDS: Mometasone/Formoter 200/5 MDI INH SCH (07:04)
[2019-08-12] MEDS: SPIRIVA Respimat* (tiotropium) 2.5 mcg/inh Inhaler INH SCH (07:05)
[2019-08-12 07:12] LABS: ABS Lymphocytes 0.7 10^3/ul (1.0-4.8); ABS Monocytes 0.6 10^3/ul (0-0.8); ABS Neutrophils 2.8 10^3/ul (1.5-7.7); Hematocrit 38 % (42-52); Mean Corpuscular HGB Conc 34 g/dL (31-36); Mean Corpuscular Hemoglobin 28 pg (27-31); Mean Corpuscular Volume 82 fL (80-94); Mean Platelet Volume 7.5 fL (7.4-10.4); Nucleated Red Blood Cells % 0.1; Platelet Count 285 10^3/uL (150-450); Red Blood Count 4.63 10^6 /uL (4.18-5.48); Red Cell Distribution Width 14 % (10-15); White Blood Count 4.1 10^3/uL (3.5-10.8)
[2019-08-12 07:30] LABS: Calcium 8.8 mg/dL (8.6-10.3); EGFR African American 160.2 (>60); EGFR Non-African American 132.4 (>60); Magnesium 1.9 mg/dL (1.9-2.7); Potassium 3.7 mmol/L (3.5-5.0)
[2019-08-12] MEDS ORDERED: Potassium Chlor TAB* 20 MEQ TAB.ER PO ONE (08:31)
[2019-08-12] MEDS: Isosorbide Mononitrate ER TAB* 30 MG PO SCH (08:46)
[2019-08-12] MEDS: Folic Acid TAB* 1 MG PO SCH (08:46)
[2019-08-12] MEDS: Insulin LISPRO* 1 UNITS UNIT SUBCUT SCH (08:46)
[2019-08-12] MEDS: Diltiazem CD CAP* 120 MG PO SCH (08:47)
[2019-08-12] MEDS: Sertraline* 50 MG TAB PO SCH (08:47)
[2019-08-12] MEDS: Carvedilol TAB* 25 MG PO SCH (08:47)
[2019-08-12] MEDS: Magnesium Oxide TAB* 400 MG PO SCH (08:47)
[2019-08-12] MEDS: Atorvastatin* 10 MG TAB PO SCH (08:47)
[2019-08-12] MEDS: Pantoprazole TAB * 40 MG TAB PO SCH (08:47)
[2019-08-12] MEDS: Tamsulosin CAP* 0.4 MG PO SCH (08:47)
[2019-08-12] MEDS: Finasteride TAB* 5 MG PO SCH (08:47)
[2019-08-12] MEDS: Furosemide TAB* 40 MG PO SCH (08:47)
[2019-08-12] MEDS: Oseltamivir CAP* 75 MG CAP PO SCH (08:48)
[2019-08-12] MEDS: Thiamine TAB* 100 MG TAB PO SCH (08:48)
[2019-08-12] MEDS: Lactobacillus Acidophilus* 1 TAB PO SCH (08:48)
[2019-08-12] MEDS: Nystatin TOP POWDER* 15 GM BTL TOPICAL SCH (08:48)
[2019-08-12] MEDS: hydrALAZINE IV* 20 MG/ML VIAL IV SLOW PU PRN (09:06)
[2019-08-12] MEDS ORDERED: Azithromycin TAB* 250 MG PO ONE (10:10)
--- NOTE | 2019-08-12 12:13 | DS ---
CC: Sylvie Parish NP * DISCHARGE SUMMARY: DATE OF ADMISSION: 08/10/19 DATE OF DISCHARGE: 08/12/19 PRIMARY CARE PROVIDER: Sylvie Parish NP ATTENDING PHYSICIAN: Laury Huizar MD * (dictated by Lynnette Aguiar NP) PRIMARY DIAGNOSES: 1. Acute on chronic respiratory failure. 2. Sepsis. 3. Pneumonia. 4. Flu. 5. Diabetes. 6. Hypothyroid. 7. Diastolic heart failure. 8. Atrial fibrillation. 9. Hypertension. 10. Gastroesophageal reflux disease. 11. Depression. 12. Benign prostatic hyperplasia. STUDIES WHILE IN THE HOSPITAL: 1. Chest x-ray: Right lower lung zone airspace opacification, known pulmonary nodules, better characterized by comparison CT. 2. EKG: Atrial fibrillation. DISCHARGE HOME MEDICATIONS: Continued home medications: 1. Metformin 1000 mg p.o. b.i.d. 2. Spiriva 1 cap inhalation daily. 3. Thiamine 100 mg p.o. daily. 4. Flomax 0.4 mg p.o. daily. 5. Mylicon 80 mg p.o. q.6 hours p.r.n. 6. Zoloft 50 mg p.o. daily. 7. Zofran 4 mg p.o. q.6 hours p.r.n. 8. Omeprazole 20 mg p.o. daily. 9. Nystatin cream 1 application topical daily p.r.n. 10. Magnesium oxide 800 mg p.o. daily. 11. Levothyroxine 50 mcg p.o. daily. 12. Lactobacillus 1 cap p.o. daily. 13. Imdur ER tab 30 mg p.o. daily. 14. Lasix 40 mg p.o. daily. 15. Folic acid 1 mg p.o. daily. 16. Proscar 5 mg p.o. daily. 17. Diltiazem 120 mg p.o. daily. 18. Vitamin D3 at 2000 units p.o. daily. 19. Coreg 25 mg p.o. b.i.d. 20. Symbicort 160/4.5 mg 2 puffs inhalation b.i.d. 21. Atorvastatin 10 mg p.o. daily. 22. Ventolin 2 puffs inhalation q.4 hours p.r.n. [place] Medications: 1. Prednisone 20 mg p.o. daily x4 more days. 2. Tamiflu 75 mg p.o. b.i.d. for a total of 5 days. The patient has 4 more days including today. 3. Azithromycin 250 mg p.o. daily x3 more days including today. HISTORY OF PRESENT ILLNESS/HOSPITAL COURSE: Mr. Stone is a 74-year-old male with past medical history significant for COPD (on today's oxygen), heart failure, hypertension, diabetes, atrial fibrillation; who presented to the emergency department on 08/10/19 with complaints of respiratory distress x1 day. Please see history and physical dictated by Mar Clark, for complete summary of the events leading up to hospitalization, but in short, the patient was found to be requiring additional supplemental oxygen to maintain oxygen saturation. The patient had chest x-ray which revealed right lower lobe pneumonia. In addition he had a flu swab which revealed flu-B. The patient also met sepsis criteria at that time admission, given leukopenia, tachycardia and tachypnea. The patient received IV fluid, antibiotics, and was mujica cultured. The patient was admitted to the hospital and provided with steroids, DuoNeb, supplemental oxygen, antibiotics, Tamiflu. The patient has improved greatly over the past 24 to 48 hours. The patient is now currently on 2 L nasal cannula, which is his baseline. He is breathing without difficulty. He is no longer leukopenic. He is afebrile. His vital signs are stable. The patient is stable for discharge home. Vital Signs: 97.1, HR 85, RR 20, O2 saturation 97% on 2 L, BP 159/95. REVIEW OF SYSTEMS: The patient reports occasional cough. The patient denies shortness of breath, chest pain, nausea, vomiting, diaphoresis, fever, chills. A 14-point review of systems was completed and all others were negative. PHYSICAL EXAMINATION: General: Mr. Stone is a 74-year-old male who was sitting in the bed, appears to be in no acute distress, appears stated age. HEENT: EOMs intact. Sclerae without icterus. Oral mucosa is moist without lesion. Posterior pharynx is clear. Neck: No lymphadenopathy. Respiratory: Symmetrical chest expansion. No accessory muscle use. Lungs are clear to auscultation. No rhonchi, wheezes or rales. CV: Regular rate and rhythm. S1 , S2 present. No murmurs, rubs or gallops. Extremities: Skin is warm and smooth bilaterally. No edema. Pedal pulses 2+ bilaterally. Musculoskeletal: No pain or deformities. Abdomen: Soft, nontender to palpation. Bowel sounds normoactive. Neuro: Awake, alert and oriented x4. Motor strength is 5/5 in upper and lower extremities. Skin: Grossly intact without lesions. DIAGNOSTIC STUDIES/LAB DATA: WBC 4.1, hemoglobin 13.0, hematocrit 38, platelets 285. Sodium 139, potassium 3.7, chloride 99, carbon dioxide 33, BUN 12, creatinine 0.60, glucose 181. DISCHARGE PLAN/FOLLOWUP: 1. Acute on chronic respiratory failure: As mentioned above, the patient has improved greatly over the past 24 to 48 hours. He is currently on his baseline supplemental oxygen rate of 2 L. It is reported that the patient has poor compliance with his BiPAP. Therefore, we recommend that the patient follow up with his primary care and discuss ways to increase compliance. He will also be discharged to complete a steroid burst. 2. Sepsis secondary to pneumonia: The patient mets sepsis criteria on admission with leukopenia, tachypnea and tachycardia. The patient received IV fluids and antibiotics and was mujica cultured. The patient no longer meets sepsis criteria and has improved well. 3. Pneumonia: Suspected right lower lobe pneumonia seen on chest x-ray, suspected to be secondary to influenza B. The patient has been on azithromycin , ceftriaxone, here in the hospital. We will discharge patient on azithromycin to complete a 5 day course. The patient to continue his inhalers as needed. 4. Flu B. The patient is flu B positive. He will be discharged to complete 5 days of Tamiflu. 5. Diabetes: The patient is to resume his metformin on discharge and follow up with his primary care. 6. Hypothyroid. The patient can resume his Synthroid and followup with his primary care. 7. Diastolic heart failure: While in the hospital the patient has appeared euvolemic. He can continue his Lasix and carvedilol. 8. Atrial fibrillation: The patient is rate controlled. We will continue his diltiazem, Coreg, and magnesium supplement upon discharge. We see that he is not anticoagulated and we believe this is probably due to frequent falls. I would defer this conversation on anticoagulation to his primary care and the patient. 9. Hypertension: The patient was quite hypertensive in the emergency department upon admission and has received hydralazine while hospitalized. Currently his systolic BP is running in 150s to 160s. I will hold on adjusting the patient's medication at this time, given his acute illness and steroids. I would recommend patient follow up with his primary care in 1 to 3 days to readdress hypertension and adjustment of meds if necessary. 10. Gastroesophageal reflux disease. The patient to continue his PPI. 11. Depression: The patient continue Zoloft. 12. Benign prostatic hyperplasia. When the patient was admitted, he was noted to have an indwelling Bacon. He reports that this was placed due to retention. We did not change his Bacon given his sepsis was secondary to flu B/ pneumonia. We also discussed exchanging the Bacon and the patient refused. Therefore, his Bacon has not been replaced. I will defer this to his urologist who he states he will see in the next 1 to 3 days. 13. Followup: The patient should follow up with his primary care in 1 to 3 days. The patient should follow up with his urologist as previously scheduled. 14. Education: The patient was educated on signs and symptoms of worsening condition and when to return to the emergency department. The patient stated understanding. This is a summarized report of a complex medical history and hospital stay. For further details, please see the entire medical record. TIME SPENT: Approximately 40 minutes was spent on this discharge, greater than half that time was spent [id number] with the patient discussing discharge plans and instructions. This plan has been discussed with my attending, Dr. Laury Huizar, who is in agreement with my plan of care. LYNNETTE AGUIAR, BRITTANY [id number]/CPS #: [id number] SAMAN
[2019-08-12 12:25] VITALS: BP 116/72
== END 2019-08-12 12:20 | disposition home health service (06) | DRG 871 ==
LOC: ED 19:01 → MED 22:07
PROVIDERS: ADMIT Hospitalist; ATTEND Internal Medicine
DX: A41.89 Other specified sepsis (principal); J10.08 Influenza due to other identified influenza virus with other specified pneumonia; J96.20 Acute and chronic respiratory failure, unspecified whether with hypoxia or hypercapnia; J44.0 Chronic obstructive pulmonary disease with (acute) lower respiratory infection; I50.32 Chronic diastolic (congestive) heart failure; I11.0 Hypertensive heart disease with heart failure; E11.9 Type 2 diabetes mellitus without complications; I48.91 Unspecified atrial fibrillation; N40.0 Benign prostatic hyperplasia without lower urinary tract symptoms; M10.9 Gout, unspecified; F43.10 Post-traumatic stress disorder, unspecified; K21.9 Gastro-esophageal reflux disease without esophagitis; E03.9 Hypothyroidism, unspecified; F32.9 Major depressive disorder, single episode, unspecified; E78.5 Hyperlipidemia, unspecified; G47.33 Obstructive sleep apnea (adult) (pediatric); Z99.89 Dependence on other enabling machines and devices; Z79.51 Long term (current) use of inhaled steroids; Z99.81 Dependence on supplemental oxygen; Z87.891 Personal history of nicotine dependence; Z79.84 Long term (current) use of oral hypoglycemic drugs; Z79.890 Hormone replacement therapy; Z79.899 Other long term (current) drug therapy
CPT/HCPCS: 36415; 71045; 80048; 80053; 82803; 83605; 83735; 83880; 84484; 85025; 87040; 93005; 94640; 94660; 96374; 99285; A9270-GY; J0360; J0456; J0696; J1650; J2920; J3535; J7512

== ENCOUNTER 2019-09-03 09:08 | Emergency (ER) | payer OTHER ==
--- NOTE | 2019-09-03 09:23 | ED ---
Shortness of Breath - HPI Summary HPI Summary: This pt is a 74 Y/O M brought to [facility] by EMS with a CC of SOB following a recent diagnosis of PNA. Per his family the pt was increasing with SOB this morning. He currently denies any CP, cough, headaches, N/V, fevers, chills, and sore throat. He currently states that his SOB is intermittent and very mild but wants to make sure that his PNA has dissipated. He has no aggravating or alleviating factors. He has a PMHx of COPD and currently uses 2L of O2 while at home. - History of Current Complaint Chief Complaint: EDShortnessOfBreath Time Seen by Provider: 09/03/19 09:11 Hx Obtained From: Patient Onset/Duration: Sudden Onset, Resolved Timing: Constant Current Severity: Mild Dyspnea At: Exertion Aggravating Factors: Movement Alleviating Factors: Nothing Associated Signs & Symptoms: Negative - CP, cough, headaches, N/V, fevers, chills, and sore throat Related History: Similar Episode - states recent diagnosis of PNA 2 weeks ago - Allergy/Home Medications Allergies/Adverse Reactions: Allergies Allergy/AdvReac Type Severity Reaction Status Date / Time No Known Allergies Allergy Verified 06/04/19 09:17 Home Medications: Home Medications Atorvastatin* [Lipitor 20 MG*] 10 mg PO DAILY 04/29/19 [History Confirmed ] Folic Acid TAB* [Folvite TAB*] 1 mg PO DAILY 04/29/19 [History Confirmed ] Isosorbide Mononitrate ER TAB* [Imdur ER TAB*] 30 mg PO DAILY 04/29/19 [History Confirmed 09/03/19] Levothyroxine TAB* [Synthroid TAB*] 50 mcg PO DAILY 04/29/19 [History Confirmed 09/03/19] Omeprazole CAP (NF) [Prilosec CAP* 20 MG] 20 mg PO DAILY 04/29/19 [History Confirmed 09/03/19] metFORMIN* [Glucophage 1000 MG TAB *] 1,000 mg PO BID 04/29/19 [History Confirmed 09/03/19] Magnesium Oxide TAB* [MagOx 400 TAB*] 800 mg PO DAILY tab 05/10/19 [Rx Confirmed 09/03/19] Diltiazem CD CAP* [Cardizem CD CAP*] 120 mg PO DAILY 05/15/19 [History Confirmed 09/03/19] Sertraline* [Zoloft*] 50 mg PO DAILY 05/15/19 [History Confirmed 09/03/19] Carvedilol TAB* [Coreg TAB*] 25 mg PO BID #0 05/20/19 [Rx Confirmed 09/03/19] Lactobacillus Acidophilus* 1 cap PO DAILY #30 cap 05/20/19 [Rx Confirmed ] Tiotropium CAPSULE (NF) [Spiriva CAPSULE (NF)] 1 cap.inh INH DAILY #30 cap.inh 05/20/19 [Rx Confirmed 09/03/19] Budesonide/Formote 160/4.5(NF) [Symbicort 160/4.5 (NF)] 2 puff INH BID 06/04/19 [History Confirmed 09/03/19] Finasteride TAB* [Proscar TAB*] 5 mg PO DAILY 06/04/19 [History Confirmed ] Ondansetron ODT TAB* [Zofran 4 MG Odt TAB*] 4 mg PO Q6H PRN 06/04/19 [History Confirmed 09/03/19] Furosemide TAB* [Lasix TAB*] 40 mg PO DAILY tab 06/09/19 [Rx Confirmed 09/03/19 ] Thiamine TAB* [Vitamin B-1 TAB 100 MG*] 100 mg PO DAILY tab 06/09/19 [Rx Confirmed 09/03/19] Albuterol HFA INHALER* [Ventolin HFA Inhaler*] 2 puff INH Q4H PRN 07/15/19 [ History Confirmed 09/03/19] Cholecalciferol CAP/TAB(NF) [Vitamin D3 CAP/TAB (NF)] 2,000 unit PO DAILY [History Confirmed 09/03/19] Simethicone TAB* [Mylicon TAB*] 80 mg PO Q6H PRN 07/15/19 [History Confirmed ] Tamsulosin CAP* [Flomax CAP*] 0.4 mg PO DAILY 07/15/19 [History Confirmed ] Albuterol/Ipratropium NEB.ELOISA* [Duoneb (Albuterol 2.5 MG/Ipratropium 0.5 MG)] 1 neb INH Q6H PRN 09/03/19 [History Confirmed 09/03/19] Colchicine* [Colcrys*] 1.2 mg PO ONCE 09/03/19 [History Confirmed 09/03/19] Miconazole Nitrate [Desenex] 2 % TOPICAL BID 09/03/19 [History Confirmed ] hydrOXYzine HCL TAB* [Atarax 25 MG TAB*] 25 mg PO TID PRN 09/03/19 [History Confirmed 09/03/19] PMH/Surg Hx/FS Hx/Imm Hx Previously Healthy: Yes Endocrine/Hematology History: Reports: Hx Diabetes Denies: Hx Anticoagulant Therapy, Hx Thyroid Disease Cardiovascular History: Reports: Hx Atrial Fibrillation, Hx Congestive Heart Failure, Hx Hypertension, Other Cardiovascular Problems/Disorders - afib Denies: Hx Angina, Hx Pacemaker/ICD Respiratory History: Reports: Hx Asthma, Hx Chronic Obstructive Pulmonary Disease (COPD) - YES 02 DEPENDENT AT HOME, Other Respiratory Problems/Disorders - Agent orange exposure History: Reports: Hx Benign Prostatic Hyperplasia Denies: Hx Renal Disease Musculoskeletal History: Reports: Hx Gout Sensory History: Reports: Hx Contacts or Glasses Denies: Hx Cataracts, Hx Glaucoma, Hx Legally Blind, Hx Deafness, Hx Hearing Aid, Other Sensory Impairments Opthamlomology History: Reports: Hx Contacts or Glasses Denies: Hx Cataracts, Hx Glaucoma, Hx Legally Blind, Other Sensory Impairments Neurological History: Denies: Hx Dementia, Hx Seizures Psychiatric History: Reports: Hx Post Traumatic Stress Disorder - [place] war Denies: Hx Panic Disorder, Hx Substance Abuse - Cancer History Hx Chemotherapy: No Hx Radiation Therapy: No - Surgical History Surgical History: None Surgery Procedure, Year, and Place: None Hx Anesthesia Reactions: No - Immunization History Immunizations Up to Date: Yes Infectious Disease History: Denies: Hx Hepatitis, Hx Human Immunodeficiency Virus (HIV), Hx of Known/ Suspected MRSA - Family History Known Family History: Negative: Diabetes - Social History Occupation: Retired Lives: With Family Alcohol Use: Occasionally Alcohol Amount: 4-5 per day Hx Substance Use: No Substance Use Type: Reports: None Hx Tobacco Use: Yes Smoking Status (MU): Former Smoker Review of Systems Negative: Fever, Chills Negative: Sore Throat Negative: Chest Pain Positive: Shortness Of Breath. Negative: Cough Negative: Vomiting, Nausea Negative: Headache All Other Systems Reviewed And Are Negative: Yes Physical Exam - Summary Physical Exam Summary: VITAL SIGNS: Reviewed. GENERAL: Patient is a well-developed and nourished Male who is lying comfortable in the stretcher. Patient is not in any acute respiratory distress. HEAD AND FACE: No signs of trauma. No ecchymosis, hematomas or skull depressions. No sinus tenderness. EYES: PERRLA, EOMI x 2, No injected conjunctiva, no nystagmus. EARS: Hearing grossly intact. Ear canals and tympanic membranes are within normal limits. MOUTH: Oropharynx within normal limits. NECK: Supple, trachea is midline, no adenopathy, no JVD, no carotid bruit, no c- spine tenderness, neck with full ROM. CHEST: Symmetric, no tenderness at palpation. LUNGS: Clear to auscultation bilaterally. No wheezing or crackles. Using his prescribed and normal 2L O2 nasal cannula with good effect CVS: Regular rate and rhythm, S1 and S2 present, no murmurs or gallops appreciated. ABDOMEN: Soft, non-tender. No signs of distention. No rebound, no guarding, and no masses palpated. Bowel sounds are normal. EXTREMITIES: FROM in all major joints, no edema, no cyanosis or clubbing. NEURO: Alert and oriented x 3. No acute neurological deficits. Speech is normal and follows commands. SKIN: Dry and warm. Triage Information Reviewed: Yes Vital Signs On Initial Exam: Temp Pulse Resp BP SpO2 FiO2 Vital Signs Reviewed: Yes Procedures - Sedation Patient Received Moderate/Deep Sedation with Procedure: No Diagnostics - Laboratory Result Diagrams: 09/03/19 09:31 09/03/19 09:31 Lab Statement: Any lab studies that have been ordered have been reviewed, and results considered in the medical decision making process. - Radiology CXR Radiology Interpretation Completed By: Radiologist Summary of Radiographic Findings: No focal airspace opacification. Small pleural effusions. Subcentimeter circumscribed calcified pulmonary nodule left upper lobe (similar from. comparison CT). ED physician has reviewed this report. Course/Dx - Course Assessment/Plan: This pt is a 74 Y/O M brought to [facility] by EMS with a CC of SOB following a recent diagnosis of PNA. Per his family the pt was increasing with SOB this morning. He currently denies any CP, cough, headaches, N/V, fevers, chills, and sore throat. He currently states that his SOB is intermittent and very mild but wants to make sure that his PNA has dissipated. He has no aggravating or alleviating factors. He has a PMHx of COPD and currently uses 2L of O2 while at home. Blood test results without a significant abnormality except for slight anemia, chloride 95, carbon dioxide 39, glucose 134, CRP of 9.54. Chest x-ray impression: No focal airspace opacification. Small pleural effusion. Upper lobe nodule. Patient aware of the lung nodule. The patient continues to be asymptomatic and has no complaints. Blood work is within normal limits and a chest x-ray shows no pneumonia. Therefore, patient will be discharged home with follow-up with primary care physician. I discussed all the findings and test results with the patient. Patient was instructed to return to the emergency room immediately if any of the symptoms return or worsen . Plan of care was discussed with the patient and understands and agrees. All questions were answered at patient satisfaction. There were no further complaints or concerns. Lung exam before discharge: CTA B/L. Good air exchange. No wheezing or crackles heard. CVS: S1 and S2 present. No murmurs appreciated. Patient is alert and oriented x 3. Patient is hemodynamically stable. Patient will be discharged home with follow up PCP in the next 2-3 days - Diagnoses Provider Diagnoses: Dyspnea Discharge ED - Sign-Out/Discharge Documenting (check all that apply): Patient Departure - discharge - Discharge Plan Condition: Good Disposition: HOME Patient Education Materials: Dyspnea (ED) Referrals: Sylvie Parish [Primary Care Provider] - 2 Days Additional Instructions: PLEASE FOLLOW UP WITH YOUR PRIMARY CARE PHYSICIAN IN 1-3 DAYS AND RETURN TO THE EMERGENCY DEPARTMENT FOR ANY NEW OR WORSENING SYMPTOMS. - Billing Disposition and Condition Condition: GOOD Disposition: Home - Attestation Statements Document Initiated by Yaquelin: Yes Documenting Scribe: Troy Higgins Provider For Whom Yaquelin is Documenting (Include Credential): James Garza MD Scribe Attestation: Troy Epps, scribed for James Garza MD on 09/03/19 at 1823. Scribe Documentation Reviewed: Yes Provider Attestation: The documentation as recorded by the Troy pal accurately reflects the service I personally performed and the decisions made by James reyes MD Status of Scribe Document: Viewed
--- OUTSIDE RECORDS SUMMARY | 2019-09-03 09:26 | XMS REPORT ---
:1945 Author Organization [facility] Care Team Providers Name Role Phone Unavailable [...] mellitus without without complicatio complicatio ns ns Chronic Chronic Diagnosis Active Abigail atrial atrial Carrier RN fibrillatio fibrillatio n, n, unspecified unspecified Anemia, Anemia, Diagnosis Active Abigail unspecified unspecified [...] RN supplementa supplementa l oxygen l oxygen long term [facility] Diagnosis Active Abigail (current) (current) Carrier RN use of use of inhaled inhaled steroids steroids long term [facility] Diagnosis Active Abigail (current) (current) Carrier [...] Resolve 2018-072019-08-02 Mary pain d 08-23 12:50:00 [place] 12:28: [id number] 00 Respiratory dyspnea Respirator Active 2018-07 Mary present y 08-23 [place] 12:28: [id number] 00 Respiratory oxygen Respirator Active 2018-07 Mary treatments y 08-23 [place] in home 12:28: [id number] 00 Respiratory lung sounds Respirator Active 2018-07 Mary deficit y 08-23 [place] 12:28: [id number] 00 Endo/Carlos diabetic Endo/Carlos Resolve 2018-072019-07-30 Mary foot care d 08-23 10:45:00 [place] 12:28: [id number] 00 Sensory impaired Sensory Active 2018-07 Mary hearing 08-23 [place] 12:28: [id number] 00 Integument skin Integument Active 2018-07 Mary integrity 08-23 [place] risk 12:28: [id number] Nutrition nutritional Nutrition Resolve 2018-072019-07-30 Mary restriction d - 10:45:00 [place] s 12:28: [id number] 00 Elimination catheter Eliminatio Resolve 2018-072019-08-24 Mary present n d 08-23 15:02:00 [place] 12:28: [id number] 00 Elimination ostomy Eliminatio Resolve 2018-072019-06-24 Mary present n d 08-23 14:35:00 [place] 12:28: [id number] 00 Neuro confusion Neuro/Emot Resolve 2018-072019-08-02 Mary present ion d 2- 12:50:00 [place] 12:28: [id number] 00 Activity ADL Activity Resolve 2018-072019-08-02 Mary assistance d 2- 12:50:00 [place] required 12:28: [id number] 00 Activity self-care Activity Resolve 2018-072019-07-30 Mary deficit d 2- 10:45:00 [place] 12:28: [id number] 00 Safety structural Safety Active 2018-07 Mary barriers - [place] present 12:28: [id number] 00 Safety fall risk Safety Active 2018-07 Mary factor - [place] present 12:28: [id number] 00 Safety risk for Safety Active 2018-07 Mary hospitaliza 08-23 [place] tion 12:28: [id number] 00 Safety can be left Safety Active 2018-07 Mary alone for 08-23 [place] only short 12:28: [id number] periods 00 Medication oral med Meds Resolve 2018-072019-08-02 Mary assistance d 2- 12:50:00 [place] required 12:28: [id number] 00 Medication knowledge/s Meds Resolve 2018-072019-08-02 Mary kill d 08-23 12:50:00 [place] deficit: pt 12:28: [id number] 00 Medication knowledge/s Meds Resolve 2018-072019-08-02 Mary kill d - 12:50:00 [place] deficit: cg 12:28: [id number] 00 Medication potential Meds Resolve 2018-072019-08-02 Mary clinically d 08-23 12:50:00 [place] significant 12:28: [id number] medication 00 issue Musculoskel transfer Musculoske Active 2018-07 Mary etal assistance letal 08-23 [place] required 12:28: [id number] 00 Musculoskel requires Musculoske Active 2018-07 Mary etal human letal 08-23 [place] assist to 12:28: [id number] leave home 00 Cardio edema Cardiovasc Active 2018-07 Abigailjason teague 2-19 Carrier RN 14:35: 00 Cardio hypertensio Cardiovasc Active 2018-07 Abigailjason teague 2-19 Carrier RN 14:35: 00 Respiratory [...] Social 2-27 [place] deficit - Services 10:00: [id number] pt 00 Social knowledge/s SERGIO: Active 2018-07 Nancy Services kill Social 2-27 [place] deficit - Services 10:00: [id number] cg 00 Social knowledge/s SERGIO: Unknown 2018-07 Alicia Services kill Social 2-30 [place] deficit - Services 13:17: [id number] cg 00 Cardio knowledge/s Cardiovasc Active 2020-0 [...] days 14:45: 00 Medication inhalant Meds Resolve 2019-0 2019-08-16 Abigail med d 1-17 16:00:00 Carrier RN assistance 14:45: required 00 Respiratory BiPAP Respirator Active 2020-0 Abigail treatments y 1-24 Carrier RN in home 10:45: 00 Nutrition nutritional Nutrition Resolve 2019-2019-08-06 Abigail restriction d - 12:45:00 Carrier RN s 12:50: 00 Medication knowledge/s Meds Resolve 0 2019-08-06 Abigail kill d - 12:45:00 Carrier RN deficit: pt 16:00: 00 Medication knowledge/s Meds Active 2020-0 Abigail kill 2-03 Carrier RN deficit: pt 16:00: 00 Safety fire risk Safety Active Abigail present 2 Carrier RN 18:00: 00 Pain frequent Pain Mgmt Active Abigail pain 08-13 Carrier RN 12:00: 00 Endo/Carlos diabetic Endo/Carlos Active Abgiail foot care 2 Carrier RN 12:00: 00 Nutrition nutritional Nutrition Active Abigail restriction 2 Carrier RN s 12:00: 00 Neuro confusion Neuro/Emot Active Abigail present ion 2- Carrier RN 12:00: 00 Activity ADL Activity Active Abigail assistance 2 Carrier RN required 12:00: 00 Activity self-care Activity Active Abigail deficit 08-13 Carrier RN 12:00: 00 Medication oral med Meds Unknown Abigail assistance 2 Carrier RN required 12:00: 00 Medication oral med Meds Resolve 2019-08-16 Abigail assistance d 08-16 16:00:00 Carrier RN required 16:00: 00 Allergies, Adverse Reactions, Alerts Allergy Allergy Status Severity Reaction(s) Onset Inactive Treating Comments Name Type Date Date Clinician Unknown None Active Unknown None Unknown No Known Allergies For This Patient Medications Ordered Filled Start Stop Current Ordering Indication Dosage Frequency Signature Comments Components Medication Medication Date Date Medication? Clinician (SIG) Name Name furosemide furosemide 2018-07 Yes [place] Unknown Unknown 20 mg 20 mg 2-17 Gokul SALAZAR tablet tablet thiamine thiamine 2018-07 Yes Humza Unknown Unknown HCl HCl 2-17 Gokul SALAZAR (vitamin (vitamin B1) 100 mg B1) 100 mg tablet tablet atorvastati atorvastati 2018-07 Yes [place] Unknown Unknown n 20 mg n 20 mg 2-17 Gokul SALAZAR tablet tablet carvedilol carvedilol 2018-07 Yes [place] Unknown Unknown 25 mg 25 mg 2- Gokul SALAZAR tablet tablet DILT-XR 120 DILT-XR 120 2018-07 Yes [place] Unknown Unknown mg capsule, mg capsule, 2- Gokul SALAZAR extended extended release release isosorbide isosorbide 2018-07 Yes [place] Unknown Unknown mononitrate mononitrate 2-17 Gokul SALAZAR ER 30 mg ER 30 mg tablet,exte tablet,exte nded nded release 24 release 24 hr hr Symbicort Symbicort 2018-07 Yes [place] Unknown Unknown 160 mcg-4.5 160 mcg-4.5 2- Gokul SALAZAR mcg/actuati mcg/actuati on HFA on HFA aerosol aerosol inhaler inhaler Spiriva Spiriva 2018-07 Yes Humza Unknown Unknown with with 2- Gokul SALAZAR HandiHaler HandiHaler 18 mcg and 18 mcg and inhalation inhalation capsules capsules ipratropium ipratropium 2018-07 Yes [place] Unknown Unknown -albuterol -albuterol 2- Gokul SALAZAR 0.5 mg-3 0.5 mg-3 mg(2.5 mg mg(2.5 mg base)/3 mL base)/3 mL nebulizatio nebulizatio n soln n soln finasteride finasteride 2018-07 Yes [place] Unknown Unknown 5 mg tablet 5 mg tablet 2 Gokul SALAZAR sertraline sertraline 2018-07 Yes Humza Unknown Unknown 100 mg 100 mg 2 Gokul SALAZAR tablet tablet tamsulosin tamsulosin 2018-07 Yes [place] Unknown Unknown 0.4 mg 0.4 mg 2 [...] Unknown Unknown 1,000 mg 1,000 mg 2- Gokul SALAZAR tablet tablet levothyroxi levothyroxi 2018-07 Yes Humza Unknown Unknown ne 50 mcg ne 50 mcg 2 Gokul SALAZAR tablet tablet Lactobac. Lactobac. 2018-07 Yes [place] Unknown Unknown acidophilus acidophilus - Gokul SALAZAR -Bifido. -Bifido. animalis 10 animalis 10 billion billion cell cell chewable chewable tablet tablet folic acid folic acid 2018-07 Yes Humza Unknown Unknown 1 mg tablet 1 mg tablet 2- Gokul SALAZAR magnesium magnesium 2018-07 Yes [place] Unknown Unknown oxide 400 oxide 400 2- Gokul SALAZAR mg (241.3 mg (241.3 mg mg magnesium) magnesium) tablet tablet colchicine colchicine 2018-07 Yes Humza Unknown Unknown 0.6 mg 0.6 mg 2- Gokul SALAZAR tablet tablet cholecalcif cholecalcif 2018-07 Yes [place] Unknown Unknown murray murray 08-23 Gokul SALAZAR (vitamin (vitamin D3) 1,000 D3) 1,000 unit unit capsule capsule Tums 200 mg Tums 200 mg 2018-07 Yes Humza Unknown Unknown calcium calcium 2- Gokul SALAZAR (500 mg) (500 mg) chewable chewable tablet tablet oxygen oxygen 2018-07 Yes [place] Unknown Unknown 2 Gokul SALAZAR acetaminoph acetaminoph 2018-07 Yes Humza Unknown Unknown en 500 mg en 500 mg 08-29 Gokul SALAZAR tablet tablet azithromyci azithromyci 2018-07- Yes Humza Unknown Unknown n 250 mg n 250 mg 09-02 Gokul SALAZAR tablet tablet amoxicillin amoxicillin 2018-07- Yes [place] Unknown Unknown [id number] 09-02 Gokul SALAZAR mg-potassiu mg-potassiu m m clavulanate clavulanate 125 mg 125 mg tablet tablet diphenhydrA diphenhydrA 2018-07 Yes [place] Unknown Unknown MINE 25 mg MINE 25 mg 09-02 Gokul SALAZAR tablet tablet Zithromax Zithromax 2018-07- Yes [place] Unknown Unknown 250 mg 250 mg 09-03 Gokul SALAZAR tablet tablet oxygen oxygen Yes [place] Unknown Unknown 2 Gokul SALAZAR Vital Signs Vital Name Observation Time Observation Value Comments SYSTOLIC mm[Hg] 2019-08-24 18:10:27 134 mm[Hg] mm[Hg] Method: Sit SYSTOLIC mm[Hg] 2019-06-22 18:09:24 148 mm[Hg] mm[Hg] Method: Stand DIASTOLIC mm[Hg] 2019-08-24 18:10:27 80 mm[Hg] mm[Hg] Method: Sit DIASTOLIC mm[Hg] 2019-06-22 18:09:24 84 mm[Hg] mm[Hg] Method: Stand PULSE 2019-08-24 18:10:27 80 /min /min RESP RATE 2019-08-20 18:10:23 16 /min /min TEMP 2019-08-24 18:10:27 98.1 [degF] Procedures This patient has no known procedures. Results This patient has no known results.
--- OUTSIDE RECORDS SUMMARY | 2019-09-03 09:26 | XMS REPORT ---
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 RN [...] Resolve 2018-072019-08-02 Mary pain d 08-23 12:50:00 [place] 12:28: [id number] 00 Respiratory dyspnea Respirator Active 2018-07 Mary present y 08-23 [place] 12:28: [id number] 00 Respiratory oxygen Respirator Active 2018-07 Mary treatments y 08-23 [place] in home 12:28: [id number] 00 Respiratory lung sounds Respirator Active 2018-07 Mary deficit y 08-23 [place] 12:28: [id number] 00 Endo/Carlos diabetic Endo/Carlos Resolve 2018-072019-07-30 Mary foot care d 08-23 10:45:00 [place] 12:28: [id number] 00 Sensory impaired Sensory Active 2018-07 Mary hearing 08-23 [place] 12:28: [id number] 00 Integument skin Integument Resolve 2018-072019-08-24 Mary integrity d 08-23 15:02:00 [place] risk 12:28: [id number] 00 Nutrition nutritional Nutrition Resolve 2018-072019-07-30 Mary restriction d 08-23 10:45:00 [place] s 12:28: [id number] 00 Elimination catheter Eliminatio Resolve 2018-072019-08-24 Mary present n d 08-23 15:02:00 [place] 12:28: [id number] 00 Elimination ostomy Eliminatio Resolve 2018-072019-06-24 Mary present n d 08-23 14:35:00 [place] 12:28: [id number] 00 Neuro confusion Neuro/Emot Resolve 2018-072019-08-02 Mary present ion d 2- 12:50:00 [place] 12:28: [id number] 00 Activity ADL Activity Resolve 2018-072019-08-02 Mary assistance d 2- 12:50:00 [place] required 12:28: [id number] 00 Activity self-care Activity Resolve 2018-072019-07-30 Mary deficit d 2- 10:45:00 [place] 12:28: [id number] 00 Safety structural Safety Active 2018-07 Mary barriers - [place] present 12:28: [id number] 00 Safety fall risk Safety Active 2018-07 Mary factor 08-23 [place] present 12:28: [id number] 00 Safety risk for Safety Active 2018-07 Mary hospitaliza 08-23 [place] tion 12:28: [id number] 00 Safety can be left Safety Active 2018-07 Mary alone for 08-23 [place] only short 12:28: [id number] periods 00 Medication oral med Meds Resolve 2018-072019-08-02 Mary assistance d 2- 12:50:00 [place] required 12:28: [id number] 00 Medication knowledge/s Meds Resolve 2018-072019-08-02 Mary kill d 2- 12:50:00 [place] deficit: pt 12:28: [id number] 00 Medication knowledge/s Meds Resolve 2018-072019-08-02 Mary kill d 2-17 12:50:00 [place] deficit: cg 12:28: [id number] 00 Medication potential Meds Resolve 2018-072019-08-02 Mary clinically d 08-23 12:50:00 [place] significant 12:28: [id number] medication 00 issue Musculoskel transfer Musculoske Active 2018-07 Mary etal assistance letal 08-23 [place] required 12:28: [id number] 00 Musculoskel requires Musculoske Active 2018-07 Mary etal human letal 08-23 [place] assist to 12:28: [id number] leave home 00 Cardio edema Cardiovasc Active [...] Social 2-27 [place] deficit - Services 10:00: [id number] pt 00 Social knowledge/s SERGIO: Active 2018-07 Nancy Services kill Social 2-27 [place] deficit - Services 10:00: [id number] cg 00 Social knowledge/s SERGIO: Unknown 2018-07 Alicia Services kill Social 2-30 [place] deficit - Services 13:17: [id number] cg 00 Cardio knowledge/s Cardiovasc Active 2019- Abigail kill ular 1-17 Carrier RN deficit: pt 14:45: 00 Respiratory CPAP Respirator Active 2019- Abigail treatments y 1-17 Carrier RN in home 14:45: 00 Respiratory knowledge/s Respirator Active 2019-0 Abigail kill y 1-17 Carrier RN deficit: pt 14:45: 00 Respiratory knowledge/s Respirator Active 2019-0 Abigail kill y 1-17 Carrier RN deficit: cg 14:45: 00 Elimination recurring Eliminatio Resolve 2019-08-30 Abigail UTI n d -17 11:50:00 Carrier RN 14:45: 00 Elimination UTI within Eliminatio Resolve 2019-08-30 Abigail past 14 n d -17 11:50:00 Carrier RN days 14:45: 00 Medication inhalant Meds Resolve 2019-08-16 Abigail med d -17 16:00:00 Carrier RN assistance 14:45: required 00 Respiratory BiPAP Respirator Active 2019- Abigail treatments y 1-24 Carrier RN in home 10:45: 00 Nutrition nutritional Nutrition Resolve 2019-08-06 Abigail restriction d 08-02 12:45:00 Carrier RN s 12:50: 00 Medication knowledge/s Meds Resolve 2019-08-06 Abigail kill d 08-03 12:45:00 Carrier RN deficit: pt 16:00: 00 Medication knowledge/s Meds Active Abigail kill 2-03 Carrier RN deficit: pt 16:00: 00 Safety fire risk Safety Active Abigail present 2-05 Carrier RN 18:00: 00 Pain frequent Pain Mgmt Active Abigail pain 2- Carrier RN 12:00: 00 Endo/Carlos diabetic Endo/Carlos Active Abigail foot care 2- Carrier RN 12:00: 00 Nutrition nutritional Nutrition Resolve 2019-08-30 Abigail restriction d 2 11:50:00 Carrier RN s 12:00: 00 Neuro confusion Neuro/Emot Active Abigail present ion 2- Carrier RN 12:00: 00 Activity ADL Activity Active Abigail assistance 2- Carrier RN required 12:00: 00 Activity self-care Activity Active Abigail deficit 2- Carrier RN 12:00: 00 Medication oral med Meds Unknown Abigail assistance 2- Carrier RN required 12:00: 00 Medication oral [...] SALAZAR tablet tablet thiamine thiamine 2018-07 Yes [place] Unknown Unknown HCl HCl 2-17 Gokul SALAZAR [...] extended release release isosorbide isosorbide 2018-07 Yes [place] Unknown Unknown mononitrate mononitrate 2-17 Gokul SALAZAR ER 30 mg ER 30 mg tablet,exte tablet,exte nded nded release 24 release 24 hr hr Symbicort Symbicort 2018-07 Yes [place] Unknown Unknown 160 mcg-4.5 160 mcg-4.5 2-17 Gokul SALAZAR mcg/actuati mcg/actuati on HFA on HFA aerosol aerosol inhaler inhaler Spiriva Spiriva 2018-07 Yes [place] Unknown Unknown with with 2- Gokul SALAZAR [...] 2- Gokul SALAZAR sertraline sertraline 2018-07 Yes [place] Unknown Unknown 100 mg 100 mg 2- Gokul SALAZAR tablet tablet tamsulosin tamsulosin 2018-07 Yes Humza Unknown Unknown 0.4 mg 0.4 mg 2- Gokul SALAZAR capsule capsule ondansetron ondansetron 2018-07 Yes Humza Unknown Unknown 4 mg 4 mg 2- Gokul SALAZAR disintegrat disintegrat ing tablet ing tablet simethicone simethicone 2018-07 Yes [place] Unknown Unknown 80 mg 80 mg 2-17 Gokul SALAZAR chewable chewable tablet tablet omeprazole omeprazole 2018-07 Yes [place] Unknown Unknown 20 mg 20 mg 2-17 Gokul SALAZAR capsule,del capsule,del ayed ayed release release metFORMIN metFORMIN 2018-07 Yes Humza Unknown Unknown 1,000 mg 1,000 mg 2-17 ,Gokul tablet tablet levothyroxi levothyroxi 2018-07 Yes Humza Unknown Unknown ne 50 mcg ne 50 mcg 2-17 ,Gokul tablet tablet Lactobac. Lactobac. 2018-07 Yes Humza Unknown Unknown acidophilus acidophilus 2-17 Gokul SALAZAR -Bifido. -Bifido. animalis 10 animalis 10 billion billion cell cell chewable chewable tablet tablet folic acid folic acid 2018-07 Yes [place] Unknown Unknown 1 mg tablet 1 mg tablet 2 Gokul SALAZAR magnesium magnesium 2018-07 Yes Humza Unknown Unknown oxide 400 oxide 400 2 Gokul SALAZAR mg (241.3 mg (241.3 mg mg magnesium) magnesium) tablet tablet colchicine colchicine 2018-07 Yes Humza Unknown Unknown 0.6 mg 0.6 mg 2 Gokul SALAZAR tablet tablet cholecalcif cholecalcif 2018-07 Yes [place] Unknown Unknown murray murray 08-23 Gokul SALAZAR (vitamin (vitamin D3) 1,000 D3) 1,000 unit unit capsule capsule Tums 200 mg Tums 200 mg 2018-07 Yes Humza Unknown Unknown calcium calcium 08-23 Gokul SALAZAR (500 mg) (500 mg) chewable chewable tablet tablet oxygen oxygen 2018-07 Yes Humza Unknown Unknown 08-23 Gokul SALAZAR acetaminoph acetaminoph 2018-07 Yes [place] Unknown Unknown en 500 mg en 500 mg 08-29 Gokul SALAZAR tablet tablet azithromyci azithromyci 2018-07 Yes [place] Unknown Unknown n 250 mg n 250 mg 09-02 Gokul SALAZAR tablet tablet amoxicillin amoxicillin 2018-07- Yes [facility]za Unknown Unknown [id number] 09-02 Gokul SALAZAR mg-potassiu mg-potassiu m m clavulanate clavulanate 125 mg 125 mg tablet tablet diphenhydrA diphenhydrA 2018-07 Yes [place] Unknown Unknown MINE 25 mg MINE 25 mg 09-02 Gokul SALAZAR tablet tablet Zithromax Zithromax 2018-07 Yes [place] Unknown Unknown 250 mg 250 mg 09-03 Gokul SALAZAR tablet tablet oxygen oxygen Yes [place] Unknown Unknown 08-13 Gokul SALAZAR Vital Signs Vital Name Observation Time Observation Value Comments SYSTOLIC mm[Hg] 2019-08-30 18:10:33 134 mm[Hg] mm[Hg] Method: Sit SYSTOLIC mm[Hg] 2019-06-22 18:09:24 148 mm[Hg] mm[Hg] Method: Stand DIASTOLIC mm[Hg] 2019-08-30 18:10:33 78 mm[Hg] mm[Hg] Method: Sit DIASTOLIC mm[Hg] 2019-06-22 18:09:24 84 mm[Hg] mm[Hg] Method: Stand PULSE 2019-08-30 18:10:33 72 /min /min RESP RATE 2019-08-30 18:10:33 18 /min /min TEMP 2019-08-30 18:10:33 98.3 [degF] Procedures This patient has no known procedures. Results This patient has no known results.
--- OUTSIDE RECORDS SUMMARY | 2019-09-03 09:26 | XMS REPORT ---
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 operator [facility] Diagnosis Active Abigail (current) (current) Carrier [...] Resolve 2018-072019-08-02 Mary pain d 08-23 12:50:00 [place] 12:28: [id number] 00 Respiratory dyspnea Respirator Active 2018-07 Mary present y 08-23 [place] 12:28: [id number] Respiratory oxygen Respirator Active 2018-07 Mary treatments y 08-23 [place] in home 12:28: [id number] 00 Respiratory lung sounds Respirator Active 2018-07 Mary deficit y 08-23 [place] 12:28: [id number] 00 Endo/Carlos diabetic Endo/Carlos Resolve 2018-072019-07-30 Mary foot care d 08-23 10:45:00 [place] 12:28: [id number] 00 Sensory impaired Sensory Active 2018-07 Mary hearing 08-23 [place] 12:28: [id number] 00 Integument skin Integument Resolve 2018-072019-08-24 Mary integrity d 08-23 15:02:00 [place] risk 12:28: [id number] 00 Nutrition nutritional Nutrition Resolve 2018-072019-07-30 Mary restriction d 08-23 10:45:00 [place] s 12:28: [id number] 00 Elimination catheter Eliminatio Resolve 2018-072019-08-24 Mary present n d 08-23 15:02:00 [place] 12:28: [id number] 00 Elimination ostomy Eliminatio Resolve 2018-072019-06-24 Mary present n d 08-23 14:35:00 [place] 12:28: [id number] 00 Neuro confusion Neuro/Emot Resolve 2018-072019-08-02 Mary present ion d 2- 12:50:00 [place] 12:28: [id number] 00 Activity ADL Activity Resolve 2018-072019-08-02 Mary assistance d 2- 12:50:00 [place] required 12:28: [id number] 00 Activity self-care Activity Resolve 2018-072019-07-30 Mary deficit d 2- 10:45:00 [place] 12:28: [id number] 00 Safety structural Safety Active 2018-07 Mary barriers - [place] present 12:28: [id number] 00 Safety fall risk Safety Active 2018-07 Mary factor 08-23 [place] present 12:28: [id number] Safety risk for Safety Active 2018-07 Mary hospitaliza 08-23 [place] tion 12:28: [id number] 00 Safety can be left Safety Active 2018-07 Mary alone for 08-23 [place] only short 12:28: [id number] periods 00 Medication oral med Meds Resolve 2018-072019-08-02 Mary assistance d 2- 12:50:00 [place] required 12:28: [id number] 00 Medication knowledge/s Meds Resolve 2018-072019-08-02 Mary kill d 2- 12:50:00 [place] deficit: pt 12:28: [id number] 00 Medication knowledge/s Meds Resolve 2018-072019-08-02 Mary kill d 2-17 12:50:00 [place] deficit: cg 12:28: [id number] 00 Medication potential Meds Resolve 2018-072019-08-02 Mary clinically d 08-23 12:50:00 [place] significant 12:28: [id number] medication 00 issue Musculoskel transfer Musculoske Active 2018-07 Mary etal assistance letal 08-23 [place] required 12:28: [id number] Musculoskel requires Musculoske Active 2018-07 Mary etal human letal 08-23 [place] assist to 12:28: [id number] leave home 00 Cardio edema Cardiovasc Active [...] Social 2-27 [place] deficit - Services 10:00: [id number] pt 00 Social knowledge/s SERGIO: Active 2018-07 Nancy Services kill Social 2-27 [place] deficit - Services 10:00: [id number] cg 00 Social knowledge/s SERGIO: Unknown 2018-07 Alicia Services kill Social 2-30 [place] deficit - Services 13:17: [id number] cg 00 Cardio knowledge/s Cardiovasc Active 2019- [...] SALAZAR tablet tablet thiamine thiamine 2018-07 Yes [place] Unknown Unknown HCl HCl 2-17 Gokul SALAZAR [...] extended release release isosorbide isosorbide 2018-07 Yes [place] Unknown Unknown mononitrate mononitrate 2-17 Gokul SALAZAR ER 30 mg ER 30 mg tablet,exte tablet,exte nded nded release 24 release 24 hr hr Symbicort Symbicort 2018-07 Yes [place] Unknown Unknown 160 mcg-4.5 160 mcg-4.5 2-17 Gokul SALAZAR mcg/actuati mcg/actuati on HFA on HFA aerosol aerosol inhaler inhaler Spiriva Spiriva 2018-07 Yes [place] Unknown Unknown with with 2- Gokul SALAZAR [...] 2- Gokul SALAZAR sertraline sertraline 2018-07 Yes [place] Unknown Unknown 100 mg 100 mg 2- Gokul SALAZAR tablet tablet tamsulosin tamsulosin 2018-07 Yes Humza Unknown Unknown 0.4 mg 0.4 mg 2- Gokul SALAZAR capsule capsule ondansetron ondansetron 2018-07 Yes Humza Unknown Unknown 4 mg 4 mg 2- Gokul SALAZAR disintegrat disintegrat ing tablet ing tablet simethicone simethicone 2018-07 Yes [place] Unknown Unknown 80 mg 80 mg 2-17 Gokul SALAZAR chewable chewable tablet tablet omeprazole omeprazole 2018-07 Yes [place] Unknown Unknown 20 mg 20 mg 2-17 [...] tablet folic acid folic acid 2018-07 Yes [place] Unknown Unknown 1 mg tablet 1 mg tablet 2 Gokul SALAZAR magnesium magnesium 2018-07 Yes Humza Unknown Unknown oxide 400 oxide 400 2 Gokul SALAZAR mg (241.3 mg (241.3 mg mg magnesium) magnesium) tablet tablet colchicine colchicine 2018-07 Yes Humza Unknown Unknown 0.6 mg 0.6 mg 2 Gokul SALAZAR tablet tablet cholecalcif cholecalcif 2018-07 Yes [place] Unknown Unknown murray murray 08-23 Gokul SALAZAR (vitamin (vitamin D3) 1,000 D3) 1,000 unit unit capsule capsule Tums 200 mg Tums 200 mg 2018-07 Yes Humza Unknown Unknown calcium calcium 08-23 Gokul SALAZAR (500 mg) (500 mg) chewable chewable tablet tablet oxygen oxygen 2018-07 Yes Humza Unknown Unknown 08-23 Gokul SALAZAR acetaminoph acetaminoph 2018-07 Yes [place] Unknown Unknown en 500 mg en 500 mg 08-29 Gokul SALAZAR tablet tablet azithromyci azithromyci 2018-07 Yes [place] Unknown Unknown n 250 mg n 250 mg 09-02 Gokul SALAZAR tablet tablet amoxicillin amoxicillin 2018-07- Yes Humza Unknown Unknown [id number] 09-02 Gokul SALAZAR mg-potassiu mg-potassiu m m clavulanate clavulanate 125 mg 125 mg tablet tablet diphenhydrA diphenhydrA 2018-07 Yes [place] Unknown Unknown MINE 25 mg MINE 25 mg 09-02 Gokul SALAZAR tablet tablet Zithromax Zithromax 2018-07 Yes [place] Unknown Unknown 250 mg 250 mg 09-03 Gokul SALAZAR tablet tablet oxygen oxygen Yes [place] Unknown Unknown 08-13 Gokul SALAZAR Vital Signs [...]
--- OUTSIDE RECORDS SUMMARY | 2019-09-03 09:26 | XMS REPORT ---
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[employer] Diagnosis Active Abigail (current) (current) Carrier [...] Resolve 2018-072019-08-02 Mary pain d 08-23 12:50:00 [place] 12:28: [id number] 00 Respiratory dyspnea Respirator Active 2018-07 Mary present y 08-23 [place] 12:28: [id number] Respiratory oxygen Respirator Active 2018-07 Mary treatments y 08-23 [place] in home 12:28: [id number] Respiratory lung sounds Respirator Active 2018-07 Mary deficit y 08-23 [place] 12:28: [id number] 00 Endo/Carlos diabetic Endo/Carlos Resolve 2018-072019-07-30 Mary foot care d 08-23 10:45:00 [place] 12:28: [id number] 00 Sensory impaired Sensory Active 2018-07 Mary hearing 08-23 [place] 12:28: [id number] 00 Integument skin Integument Active 2018-07 Mary integrity 08-23 [place] risk 12:28: [id number] 00 Nutrition nutritional Nutrition Resolve 2018-072019-07-30 Mary restriction d - 10:45:00 [place] s 12:28: [id number] 00 Elimination catheter Eliminatio Resolve 2018-072019-08-24 Mary present n d 08-23 15:02:00 [place] 12:28: [id number] 00 Elimination ostomy Eliminatio Resolve 2018-072019-06-24 Mary present n d 08-23 14:35:00 [place] 12:28: [id number] 00 Neuro confusion Neuro/Emot Resolve 2018-072019-08-02 Mary present ion d 2- 12:50:00 [place] 12:28: [id number] 00 Activity ADL Activity Resolve 2018-072019-08-02 Mary assistance d 2- 12:50:00 [place] required 12:28: [id number] Activity self-care Activity Resolve 2018-072019-07-30 Mary deficit d 2- 10:45:00 [place] 12:28: [id number] 00 Safety structural Safety Active 2018-07 Mary barriers - [place] present 12:28: [id number] 00 Safety fall risk Safety Active 2018-07 Mary factor - [place] present 12:28: [id number] 00 Safety risk for Safety Active 2018-07 Mary hospitaliza 08-23 [place] tion 12:28: [id number] 00 Safety can be left Safety Active 2018-07 Mary alone for 08-23 [place] only short 12:28: [id number] periods 00 Medication oral med Meds Resolve 2018-072019-08-02 Mary assistance d 2- 12:50:00 [place] required 12:28: [id number] 00 Medication knowledge/s Meds Resolve 2018-072019-08-02 Mary kill d 08-23 12:50:00 [place] deficit: pt 12:28: [id number] 00 Medication knowledge/s Meds Resolve 2018-072019-08-02 Mary kill d - 12:50:00 [place] deficit: cg 12:28: [id number] 00 Medication potential Meds Resolve 2018-072019-08-02 Mary clinically d 08-23 12:50:00 [place] significant 12:28: [id number] medication 00 issue Musculoskel transfer Musculoske Active 2018-07 Mary etal assistance letal 08-23 [place] required 12:28: [id number] 00 Musculoskel requires Musculoske Active 2018-07 Mary etal human letal 08-23 [place] assist to 12:28: [id number] leave home 00 Cardio edema Cardiovasc Active [...] Social 2-27 [place] deficit - Services 10:00: [id number] pt 00 Social knowledge/s SERGIO: Active 2018-07 Nancy Services kill Social 2-27 [place] deficit - Services 10:00: [id number] cg 00 Social knowledge/s SERGIO: Unknown 2018-07 Alicia Services kill Social 2-30 [place] deficit - Services 13:17: [id number] cg 00 Cardio knowledge/s Cardiovasc Active 2020-0 [...] Endo/Carlos diabetic Endo/Carlos Active Abigail 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 care 2 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 12:00: 00 [...] (SIG) Name Name furosemide furosemide 2018-07 Yes [place] Unknown Unknown 20 mg 20 mg 2-17 Gokul SALAZAR tablet tablet thiamine thiamine 2018-07 Yes [facility]za Unknown Unknown HCl HCl 2-17 Gokul SALAZAR (vitamin (vitamin B1) 100 mg B1) 100 mg tablet tablet atorvastati atorvastati 2018-07 Yes [place] Unknown Unknown n 20 mg n 20 mg 2-17 Gokul SALAZAR tablet tablet carvedilol carvedilol 2018-07 Yes [place] Unknown Unknown 25 mg 25 mg 2- Gokul SALAZAR tablet tablet DILT-XR 120 DILT-XR 120 2018-07 Yes [place] Unknown Unknown mg capsule, mg capsule, 2- Gokul SALAZAR extended extended release release isosorbide isosorbide 2018-07 Yes [place] Unknown Unknown mononitrate mononitrate 2-17 Gokul SALAZAR ER 30 mg ER 30 mg tablet,exte tablet,exte nded nded release 24 release 24 hr hr Symbicort Symbicort 2018-07 Yes [place] Unknown Unknown 160 mcg-4.5 160 mcg-4.5 2- Gokul SALAZAR mcg/actuati mcg/actuati on HFA on HFA aerosol aerosol inhaler inhaler Spiriva Spiriva 2018-07 Yes Humza Unknown Unknown with with 2- Gokul SALAZAR HandiHaler HandiHaler 18 mcg and 18 mcg and inhalation inhalation capsules capsules ipratropium ipratropium 2018-07 Yes [place] Unknown Unknown -albuterol -albuterol 2- Gokul SALAZAR 0.5 mg-3 0.5 mg-3 mg(2.5 mg mg(2.5 mg base)/3 mL base)/3 mL nebulizatio nebulizatio n soln n soln finasteride finasteride 2018-07 Yes [place] Unknown Unknown 5 mg tablet 5 mg tablet 2 Gokul SALAZAR sertraline sertraline 2018-07 Yes [facility]za Unknown Unknown 100 mg 100 mg 2 Gokul SALAZAR tablet tablet tamsulosin tamsulosin 2018-07 Yes [place] Unknown Unknown 0.4 mg 0.4 mg 2 [...] SALAZAR tablet tablet Lactobac. Lactobac. 2018-07 Yes [place] Unknown Unknown acidophilus acidophilus - Gokul SALAZAR -Bifido. -Bifido. animalis 10 animalis 10 billion billion cell cell chewable chewable tablet tablet folic acid folic acid 2018-07 Yes [facility]za Unknown Unknown 1 mg tablet 1 mg tablet 2- Gokul SALAZAR magnesium magnesium 2018-07 Yes [place] Unknown Unknown oxide 400 oxide 400 2- Gokul SALAZAR mg (241.3 mg (241.3 mg mg magnesium) magnesium) tablet tablet colchicine colchicine 2018-07 Yes Humza Unknown Unknown 0.6 mg 0.6 mg 2- Gokul SALAZAR tablet tablet cholecalcif cholecalcif 2018-07 Yes [place] Unknown Unknown murray murray 08-23 Gokul SALAZAR (vitamin (vitamin D3) 1,000 D3) 1,000 unit unit capsule capsule Tums 200 mg Tums 200 mg 2018-07 Yes Humza Unknown Unknown calcium calcium 2- Gokul SALAZAR (500 mg) (500 mg) chewable chewable tablet tablet oxygen oxygen 2018-07 Yes [place] Unknown Unknown 2 Gokul SALAZAR acetaminoph acetaminoph 2018-07 Yes Humza Unknown Unknown en 500 mg en 500 mg 08-29 Gokul SALAZAR tablet tablet azithromyci azithromyci 2018-07- Yes Humza Unknown Unknown n 250 mg n 250 mg 09-02 Gokul SALAZAR tablet tablet amoxicillin amoxicillin 2018-07- Yes [place] Unknown Unknown [id number] 09-02 Gokul SALAZAR mg-potassiu mg-potassiu m m clavulanate clavulanate 125 mg 125 mg tablet tablet diphenhydrA diphenhydrA 2018-07 Yes [place] Unknown Unknown MINE 25 mg MINE 25 mg 09-02 Gokul SALAZAR tablet tablet Zithromax Zithromax 2018-07- Yes [place] Unknown Unknown 250 mg 250 mg 09-03 Gokul SALAZAR tablet tablet oxygen oxygen Yes [place] Unknown Unknown 2 Gokul SALAZAR Vital Signs [...]
--- OUTSIDE RECORDS SUMMARY | 2019-09-03 09:26 | XMS REPORT ---
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 intermodal truck driver long-term Diagnosis Active Abigail (current) (current) Carrier RN [...] Resolve 2018-072019-08-02 Mary pain d 08-23 12:50:00 [place] 12:28: [id number] 00 Respiratory dyspnea Respirator Active 2018-07 Mary present y 08-23 [place] 12:28: [id number] 00 Respiratory oxygen Respirator Active 2018-07 Mary treatments y 08-23 [place] in home 12:28: [id number] 00 Respiratory lung sounds Respirator Active 2018-07 Mary deficit y 08-23 [place] 12:28: [id number] 00 Endo/Carlos diabetic Endo/Carlos Resolve 2018-072019-07-30 Mary foot care d 08-23 10:45:00 [place] 12:28: [id number] 00 Sensory impaired Sensory Active 2018-07 Mary hearing 08-23 [place] 12:28: [id number] 00 Integument skin Integument Resolve 2018-072019-08-24 Mary integrity d 08-23 15:02:00 [place] risk 12:28: [id number] 00 Nutrition nutritional Nutrition Resolve 2018-072019-07-30 Mary restriction d 08-23 10:45:00 [place] s 12:28: [id number] 00 Elimination catheter Eliminatio Resolve 2018-072019-08-24 Mary present n d 08-23 15:02:00 [place] 12:28: [id number] 00 Elimination ostomy Eliminatio Resolve 2018-072019-06-24 Mary present n d 08-23 14:35:00 [place] 12:28: [id number] 00 Neuro confusion Neuro/Emot Resolve 2018-072019-08-02 Mary present ion d 2- 12:50:00 [place] 12:28: [id number] 00 Activity ADL Activity Resolve 2018-072019-08-02 Mary assistance d 2- 12:50:00 [place] required 12:28: [id number] 00 Activity self-care Activity Resolve 2018-072019-07-30 Mary deficit d 2- 10:45:00 [place] 12:28: [id number] 00 Safety structural Safety Active 2018-07 Mary barriers - [place] present 12:28: [id number] 00 Safety fall risk Safety Active 2018-07 Mary factor 08-23 [place] present 12:28: [id number] 00 Safety risk for Safety Active 2018-07 Mary hospitaliza 08-23 [place] tion 12:28: [id number] 00 Safety can be left Safety Active 2018-07 Mary alone for 08-23 [place] only short 12:28: [id number] periods 00 Medication oral med Meds Resolve 2018-072019-08-02 Mary assistance d 2- 12:50:00 [place] required 12:28: [id number] 00 Medication knowledge/s Meds Resolve 2018-072019-08-02 Mary kill d 2- 12:50:00 [place] deficit: pt 12:28: [id number] 00 Medication knowledge/s Meds Resolve 2018-072019-08-02 Mary kill d 2-17 12:50:00 [place] deficit: cg 12:28: [id number] 00 Medication potential Meds Resolve 2018-072019-08-02 Mary clinically d 08-23 12:50:00 [place] significant 12:28: [id number] medication 00 issue Musculoskel transfer Musculoske Active 2018-07 Mary etal assistance letal 08-23 [place] required 12:28: [id number] 00 Musculoskel requires Musculoske Active 2018-07 Mary etal human letal 08-23 [place] assist to 12:28: [id number] leave home 00 Cardio edema Cardiovasc Active [...] Social 2-27 [place] deficit - Services 10:00: [id number] pt 00 Social knowledge/s SERGIO: Active 2018-07 Nancy Services kill Social 2-27 [place] deficit - Services 10:00: [id number] cg 00 Social knowledge/s SERGIO: Unknown 2018-07 Alicia Services kill Social 2-30 [place] deficit - Services 13:17: [id number] cg 00 Cardio knowledge/s Cardiovasc Active 2020-0 [...] Medication knowledge/s Meds Active 2020-0 Abigail kill 2- 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 deficit: pt 16:00: 00 Safety fire risk Safety Active Abigail present 2-05 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 RN 18:00: 00 Pain frequent Pain Mgmt Active Abigail pain 2 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 RN 12:00: 00 Endo/Carlos diabetic Endo/Carlos Active Abigail foot care 2- 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 RN 12:00: 00 Nutrition nutritional Nutrition Active Abigail restriction 2 Carrier RN s 12:00: 00 Neuro confusion Neuro/Emot Active Abigail present ion 2- Carrier RN 12:00: 00 Activity ADL Activity Active Baigail assistance 2 Carrier RN required 12:00: 00 [...] mg tablet tablet atorvastati atorvastati 2018-07 Yes [place] Unknown Unknown n 20 mg n 20 mg 2- Gokul SALAZAR tablet tablet carvedilol carvedilol 2018-07 Yes [place] Unknown Unknown 25 mg 25 mg 2-17 Gokul SALAZAR tablet tablet DILT-XR 120 DILT-XR 120 2018-07 Yes [place] Unknown Unknown mg capsule, mg capsule, 2-17 Gokul SALAZAR extended extended release release isosorbide isosorbide 2018-07 Yes Humza Unknown Unknown mononitrate mononitrate 2-17 Gokul SALAZAR ER 30 mg ER 30 mg tablet,exte tablet,exte nded nded release 24 release 24 hr hr Symbicort Symbicort 2018-07 Yes [place] Unknown Unknown 160 mcg-4.5 160 mcg-4.5 2-17 Gokul SALAZAR mcg/actuati mcg/actuati on HFA on HFA aerosol aerosol inhaler inhaler Spiriva Spiriva 2018-07 Yes Humza Unknown Unknown with with 2- Gokul SALAZAR HandiHaler HandiHaler 18 mcg and 18 mcg and inhalation inhalation capsules capsules ipratropium ipratropium 2018-07 Yes [place] Unknown Unknown -albuterol -albuterol 2- Gokul SALAZAR 0.5 mg-3 0.5 mg-3 mg(2.5 mg mg(2.5 mg base)/3 mL base)/3 mL nebulizatio nebulizatio n soln n soln finasteride finasteride 2018-07 Yes [place] Unknown Unknown 5 mg tablet 5 mg tablet 2 Gokul SALAZAR sertraline sertraline 2018-07 Yes [place] Unknown Unknown 100 mg 100 mg 2 Gokul SALAZAR tablet tablet tamsulosin tamsulosin 2018-07 Yes [place] Unknown Unknown 0.4 mg 0.4 mg 2 ,Gokul capsule capsule ondansetron ondansetron 2018-07 Yes [place] Unknown Unknown 4 mg 4 mg 2 Gokul SALAZAR disintegrat disintegrat ing tablet ing tablet simethicone simethicone 2018-07 Yes [place] Unknown Unknown 80 mg 80 mg 2 Gokul SALAZAR chewable chewable tablet tablet omeprazole omeprazole 2018-07 Yes Humza Unknown Unknown 20 mg 20 mg 2- Gokul SALAZAR capsule,del capsule,del ayed ayed release release metFORMIN metFORMIN 2018-07 Yes [place] Unknown Unknown 1,000 mg 1,000 mg 2- ,Gokul tablet tablet levothyroxi levothyroxi 2018-07 Yes Humza Unknown Unknown ne 50 mcg ne 50 mcg 2- Gokul SALAZAR tablet tablet Lactobac. Lactobac. 2018-07 Yes [place] Unknown Unknown acidophilus acidophilus 2- Gokul SALAZAR -Bifido. -Bifido. animalis 10 animalis 10 billion billion cell cell chewable chewable tablet tablet folic acid folic acid 2018-07 Yes [place] Unknown Unknown 1 mg tablet 1 mg tablet 2- Gokul SALAZAR magnesium magnesium 2018-07 Yes Humza Unknown Unknown oxide 400 oxide 400 2 Gokul SALAZAR mg (241.3 mg (241.3 mg mg magnesium) magnesium) tablet tablet colchicine colchicine 2018-07 Yes [place] Unknown Unknown 0.6 mg 0.6 mg 2 Gokul SALAZAR tablet tablet cholecalcif cholecalcif 2018-07 Yes Humza Unknown Unknown murray murray 08-23 Gokul SALAZAR (vitamin (vitamin D3) 1,000 D3) 1,000 unit unit capsule capsule Tums 200 mg Tums 200 mg 2018-07 Yes [place] Unknown Unknown calcium calcium 2- Gokul SALAZAR (500 mg) (500 mg) chewable chewable tablet tablet oxygen oxygen 2018-07 Yes Humza Unknown Unknown 2 Gokul SALAZAR acetaminoph acetaminoph 2018-07 Yes Humza Unknown Unknown en 500 mg en 500 mg 08-29 Gokul SALAZAR tablet tablet azithromyci azithromyci 2018-07 Yes [place] Unknown Unknown n 250 mg n 250 mg 09-02 Gokul SALAZAR tablet tablet amoxicillin amoxicillin 2018-07- Yes [place] Unknown Unknown [id number] 09-02 Gokul SALAZAR mg-potassiu mg-potassiu m m clavulanate clavulanate 125 mg 125 mg tablet tablet diphenhydrA diphenhydrA 2018-07 Yes [place] Unknown Unknown MINE 25 mg MINE 25 mg 09-02 Gokul SALAZAR tablet tablet Zithromax Zithromax 2018-07- Yes Humza Unknown Unknown 250 mg 250 mg 09-03 Gokul SALAZAR tablet tablet oxygen oxygen Yes Humza Unknown Unknown 2 Gokul SALAZAR Vital Signs Vital Name Observation Time Observation Value Comments SYSTOLIC mm[Hg] 2019-08-24 18:10:27 134 mm[Hg] mm[Hg] Method: Sit SYSTOLIC mm[Hg] 2019-06-22 18:09:24 148 mm[Hg] mm[Hg] Method: Stand DIASTOLIC mm[Hg] 2019-08-24 18:10:27 80 mm[Hg] mm[Hg] Method: Sit DIASTOLIC mm[Hg] 2019-06-22 18:09:24 84 mm[Hg] mm[Hg] Method: Stand PULSE 2019-08-24 18:10:27 80 /min /min RESP RATE 2019-08-27 18:10:30 16 /min /min TEMP 2019-08-24 18:10:27 98.1 [degF] Procedures This patient has no known procedures. Results This patient has no known results.
--- OUTSIDE RECORDS SUMMARY | 2019-09-03 09:26 | XMS REPORT ---
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 Diagnosis Active Abigail (current) (current) Carrier [...] Resolve 2018-072019-08-02 Mary pain d 08-23 12:50:00 [place] 12:28: [id number] Respiratory dyspnea Respirator Active 2018-07 Mary present y 08-23 [place] 12:28: [id number] Respiratory oxygen Respirator Active 2018-07 Mary treatments y 08-23 [place] in home 12:28: [id number] Respiratory lung sounds Respirator Active 2018-07 Mary deficit y 08-23 [place] 12:28: [id number] 00 Endo/Carlos diabetic Endo/Carlos Resolve 2018-072019-07-30 Mary foot care d 08-23 10:45:00 [place] 12:28: [id number] 00 Sensory impaired Sensory Active 2018-07 Mary hearing 08-23 [place] 12:28: [id number] 00 Integument skin Integument Resolve 2018-072019-08-24 Mary integrity d 08-23 15:02:00 [place] risk 12:28: [id number] 00 Nutrition nutritional Nutrition Resolve 2018-072019-07-30 Mary restriction d 08-23 10:45:00 [place] s 12:28: [id number] 00 Elimination catheter Eliminatio Resolve 2018-072019-08-24 Mary present n d 08-23 15:02:00 [place] 12:28: [id number] 00 Elimination ostomy Eliminatio Resolve 2018-072019-06-24 Mary present n d 08-23 14:35:00 [place] 12:28: [id number] 00 Neuro confusion Neuro/Emot Resolve 2018-072019-08-02 Mary present ion d 2- 12:50:00 [place] 12:28: [id number] 00 Activity ADL Activity Resolve 2018-072019-08-02 Mary assistance d 2- 12:50:00 [place] required 12:28: [id number] 00 Activity self-care Activity Resolve 2018-072019-07-30 Mary deficit d 2- 10:45:00 [place] 12:28: [id number] 00 Safety structural Safety Active 2018-07 Mary barriers - [place] present 12:28: [id number] 00 Safety fall risk Safety Active 2018-07 Mary factor 08-23 [place] present 12:28: [id number] Safety risk for Safety Active 2018-07 Mary hospitaliza 08-23 [place] tion 12:28: [id number] Safety can be left Safety Active 2018-07 Mary alone for 08-23 [place] only short 12:28: [id number] periods 00 Medication oral med Meds Resolve 2018-072019-08-02 Mary assistance d 2- 12:50:00 [place] required 12:28: [id number] 00 Medication knowledge/s Meds Resolve 2018-072019-08-02 Mary kill d 2- 12:50:00 [place] deficit: pt 12:28: [id number] 00 Medication knowledge/s Meds Resolve 2018-072019-08-02 Mary kill d 2-17 12:50:00 [place] deficit: cg 12:28: [id number] 00 Medication potential Meds Resolve 2018-072019-08-02 Mary clinically d 08-23 12:50:00 [place] significant 12:28: [id number] medication 00 issue Musculoskel transfer Musculoske Active 2018-07 Mary etal assistance letal 08-23 [place] required 12:28: [id number] 00 Musculoskel requires Musculoske Active 2018-07 Mary etal human letal 08-23 [place] assist to 12:28: [id number] leave home 00 Cardio edema Cardiovasc Active [...] Social 2-27 [place] deficit - Services 10:00: [id number] pt 00 Social knowledge/s SERGIO: Active 2018-07 Nancy Services kill Social 2-27 [place] deficit - Services 10:00: [id number] cg 00 Social knowledge/s SERGIO: Unknown 2018-07 Alicia Services kill Social 2-30 [place] deficit - Services 13:17: [id number] cg 00 Cardio knowledge/s Cardiovasc Active 2020-0 [...] mg tablet tablet atorvastati atorvastati 2018-07 Yes [place] Unknown Unknown n 20 mg n 20 mg 2- Gokul SALAZAR tablet tablet carvedilol carvedilol 2018-07 Yes [place] Unknown Unknown 25 mg 25 mg 2-17 Gokul SALAZAR tablet tablet DILT-XR 120 DILT-XR 120 2018-07 Yes [place] Unknown Unknown mg capsule, mg capsule, 2-17 Gokul SALAZAR extended extended release release isosorbide isosorbide 2018-07 Yes Humza Unknown Unknown mononitrate mononitrate 2-17 Gokul SALAZAR ER 30 mg ER 30 mg tablet,exte tablet,exte nded nded release 24 release 24 hr hr Symbicort Symbicort 2018-07 Yes [place] Unknown Unknown 160 mcg-4.5 160 mcg-4.5 2-17 Gokul SALAZAR mcg/actuati mcg/actuati on HFA on HFA aerosol aerosol inhaler inhaler Spiriva Spiriva 2018-07 Yes Humza Unknown Unknown with with 2- Gokul SALAZAR HandiHaler HandiHaler 18 mcg and 18 mcg and inhalation inhalation capsules capsules ipratropium ipratropium 2018-07 Yes [place] Unknown Unknown -albuterol -albuterol 2- Gokul SALAZAR 0.5 mg-3 0.5 mg-3 mg(2.5 mg mg(2.5 mg base)/3 mL base)/3 mL nebulizatio nebulizatio n soln n soln finasteride finasteride 2018-07 Yes [place] Unknown Unknown 5 mg tablet 5 mg tablet 2 Gokul SALAZAR sertraline sertraline 2018-07 Yes [place] Unknown Unknown 100 mg 100 mg 2 Gokul SALAZAR tablet tablet tamsulosin tamsulosin 2018-07 Yes [place] Unknown Unknown 0.4 mg 0.4 mg 2 ,Gokul capsule capsule ondansetron ondansetron 2018-07 Yes [place] Unknown Unknown 4 mg 4 mg 2 Gokul SALAZAR disintegrat disintegrat ing tablet ing tablet simethicone simethicone 2018-07 Yes [place] Unknown Unknown 80 mg 80 mg 2 Gokul SALAZAR chewable chewable tablet tablet omeprazole omeprazole 2018-07 Yes Humza Unknown Unknown 20 mg 20 mg 2- Gokul SALAZAR capsule,del capsule,del ayed ayed release release metFORMIN metFORMIN 2018-07 Yes [place] Unknown Unknown 1,000 mg 1,000 mg 2- ,Gokul tablet tablet levothyroxi levothyroxi 2018-07 Yes Humza Unknown Unknown ne 50 mcg ne 50 mcg 2- Gokul SALAZAR tablet tablet Lactobac. Lactobac. 2018-07 Yes [place] Unknown Unknown acidophilus acidophilus 2- Gokul SALAZAR -Bifido. -Bifido. animalis 10 animalis 10 billion billion cell cell chewable chewable tablet tablet folic acid folic acid 2018-07 Yes [place] Unknown Unknown 1 mg tablet 1 mg tablet 2- Gokul SALAZAR magnesium magnesium 2018-07 Yes Humza Unknown Unknown oxide 400 oxide 400 2 Gokul SALAZAR mg (241.3 mg (241.3 mg mg magnesium) magnesium) tablet tablet colchicine colchicine 2018-07 Yes [place] Unknown Unknown 0.6 mg 0.6 mg 2 Gokul SALAZAR tablet tablet cholecalcif cholecalcif 2018-07 Yes Humza Unknown Unknown murray murray 08-23 Gokul SALAZAR (vitamin (vitamin D3) 1,000 D3) 1,000 unit unit capsule capsule Tums 200 mg Tums 200 mg 2018-07 Yes [place] Unknown Unknown calcium calcium 2- Gokul SALAZAR (500 mg) (500 mg) chewable chewable tablet tablet oxygen oxygen 2018-07 Yes Humza Unknown Unknown 2 Gokul SALAZAR acetaminoph acetaminoph 2018-07 Yes Humza Unknown Unknown en 500 mg en 500 mg 08-29 Gokul SALAZAR tablet tablet azithromyci azithromyci 2018-07 Yes [place] Unknown Unknown n 250 mg n 250 mg 09-02 Gokul SALAZAR tablet tablet amoxicillin amoxicillin 2018-07- Yes [place] Unknown Unknown [id number] 09-02 Gokul SALAZAR [...]
--- OUTSIDE RECORDS SUMMARY | 2019-09-03 09:26 | XMS REPORT ---
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 assembler retirement Diagnosis Active Abigail (current) (current) Carrier RN [...] Resolve 2018-072019-08-02 Mary pain d 08-23 12:50:00 [place] 12:28: [id number] 00 Respiratory dyspnea Respirator Active 2018-07 Mary present y 08-23 [place] 12:28: [id number] Respiratory oxygen Respirator Active 2018-07 Mary treatments y 08-23 [place] in home 12:28: [id number] 00 Respiratory lung sounds Respirator Active 2018-07 Mary deficit y 08-23 [place] 12:28: [id number] 00 Endo/Carlos diabetic Endo/Carlos Resolve 2018-072019-07-30 Mary foot care d 08-23 10:45:00 [place] 12:28: [id number] 00 Sensory impaired Sensory Active 2018-07 Mary hearing 08-23 [place] 12:28: [id number] 00 Integument skin Integument Resolve 2018-072019-08-24 Mary integrity d 08-23 15:02:00 [place] risk 12:28: [id number] Nutrition nutritional Nutrition Resolve 2018-072019-07-30 Mary restriction d 08-23 10:45:00 [place] s 12:28: [id number] 00 Elimination catheter Eliminatio Resolve 2018-072019-08-24 Mary present n d 08-23 15:02:00 [place] 12:28: [id number] 00 Elimination ostomy Eliminatio Resolve 2018-072019-06-24 Mary present n d 08-23 14:35:00 [place] 12:28: [id number] 00 Neuro confusion Neuro/Emot Resolve 2018-072019-08-02 Mary present ion d 2- 12:50:00 [place] 12:28: [id number] 00 Activity ADL Activity Resolve 2018-072019-08-02 Mary assistance d 2- 12:50:00 [place] required 12:28: [id number] 00 Activity self-care Activity Resolve 2018-072019-07-30 Mary deficit d 2- 10:45:00 [place] 12:28: [id number] 00 Safety structural Safety Active 2018-07 Mary barriers - [place] present 12:28: [id number] 00 Safety fall risk Safety Active 2018-07 Mary factor 08-23 [place] present 12:28: [id number] Safety risk for Safety Active 2018-07 Mary hospitaliza 08-23 [place] tion 12:28: [id number] 00 Safety can be left Safety Active 2018-07 Mary alone for 08-23 [place] only short 12:28: [id number] periods 00 Medication oral med Meds Resolve 2018-072019-08-02 Mary assistance d 2- 12:50:00 [place] required 12:28: [id number] 00 Medication knowledge/s Meds Resolve 2018-072019-08-02 Mary kill d 2- 12:50:00 [place] deficit: pt 12:28: [id number] 00 Medication knowledge/s Meds Resolve 2018-072019-08-02 Mary kill d 2-17 12:50:00 [place] deficit: cg 12:28: [id number] 00 Medication potential Meds Resolve 2018-072019-08-02 Mary clinically d 08-23 12:50:00 [place] significant 12:28: [id number] medication 00 issue Musculoskel transfer Musculoske Active 2018-07 Mary etal assistance letal 08-23 [place] required 12:28: [id number] 00 Musculoskel requires Musculoske Active 2018-07 Mary etal human letal 08-23 [place] assist to 12:28: [id number] leave home 00 Cardio edema Cardiovasc Active [...] Social 2-27 [place] deficit - Services 10:00: [id number] pt 00 Social knowledge/s SERGIO: Active 2018-07 Nancy Services kill Social 2-27 [place] deficit - Services 10:00: [id number] cg 00 Social knowledge/s SERGIO: Unknown 2018-07 Alicia Services kill Social 2-30 [place] deficit - Services 13:17: [id number] cg 00 Cardio knowledge/s Cardiovasc Active 2019- [...] SALAZAR tablet tablet thiamine thiamine 2018-07 Yes [place] Unknown Unknown HCl HCl 2-17 Gokul SALAZAR [...] extended release release isosorbide isosorbide 2018-07 Yes [place] Unknown Unknown mononitrate mononitrate 2-17 Gokul SALAZAR ER 30 mg ER 30 mg tablet,exte tablet,exte nded nded release 24 release 24 hr hr Symbicort Symbicort 2018-07 Yes [place] Unknown Unknown 160 mcg-4.5 160 mcg-4.5 2-17 Gokul SALAZAR mcg/actuati mcg/actuati on HFA on HFA aerosol aerosol inhaler inhaler Spiriva Spiriva 2018-07 Yes [place] Unknown Unknown with with 2- Gokul SALAZAR [...] 2- Gokul SALAZAR sertraline sertraline 2018-07 Yes [place] Unknown Unknown 100 mg 100 mg 2- Gokul SALAZAR tablet tablet tamsulosin tamsulosin 2018-07 Yes Humza Unknown Unknown 0.4 mg 0.4 mg 2- Gokul SALAZAR capsule capsule ondansetron ondansetron 2018-07 Yes Humza Unknown Unknown 4 mg 4 mg 2- Gokul SALAZAR disintegrat disintegrat ing tablet ing tablet simethicone simethicone 2018-07 Yes [place] Unknown Unknown 80 mg 80 mg 2-17 Gokul SALAZAR chewable chewable tablet tablet omeprazole omeprazole 2018-07 Yes [place] Unknown Unknown 20 mg 20 mg 2-17 [...] tablet folic acid folic acid 2018-07 Yes [place] Unknown Unknown 1 mg tablet 1 mg tablet 2 Goklu SALAZAR magnesium magnesium 2018-07 Yes Humza Unknown Unknown oxide 400 oxide 400 2 Gokul SALAZAR mg (241.3 mg (241.3 mg mg magnesium) magnesium) tablet tablet colchicine colchicine 2018-07 Yes Humza Unknown Unknown 0.6 mg 0.6 mg 2 Gokul SALAZAR tablet tablet cholecalcif cholecalcif 2018-07 Yes [place] Unknown Unknown murray murray 08-23 Gokul SALAZAR (vitamin (vitamin D3) 1,000 D3) 1,000 unit unit capsule capsule Tums 200 mg Tums 200 mg 2018-07 Yes Humza Unknown Unknown calcium calcium 08-23 Gokul SALAZAR (500 mg) (500 mg) chewable chewable tablet tablet oxygen oxygen 2018-07 Yes Humza Unknown Unknown 08-23 Gokul SALAZAR acetaminoph acetaminoph 2018-07 Yes [place] Unknown Unknown en 500 mg en 500 mg 08-29 Gokul SALAZAR tablet tablet azithromyci azithromyci 2018-07 Yes [place] Unknown Unknown n 250 mg n 250 mg 09-02 Gokul SALAZAR tablet tablet amoxicillin amoxicillin 2018-07- Yes Humza Unknown Unknown [id number] 09-02 Gokul SALAZAR mg-potassiu mg-potassiu m m clavulanate clavulanate 125 mg 125 mg tablet tablet diphenhydrA diphenhydrA 2018-07 Yes [place] Unknown Unknown MINE 25 mg MINE 25 mg 09-02 Gokul SALAZAR tablet tablet Zithromax Zithromax 2018-07 Yes [place] Unknown Unknown 250 mg 250 mg 09-03 Gokul SALAZAR tablet tablet oxygen oxygen Yes [place] Unknown Unknown 08-13 Gokul SALAZAR Vital Signs Vital Name Observation Time Observation Value Comments SYSTOLIC mm[Hg] 2019-09-02 18:10:36 134 mm[Hg] mm[Hg] Method: Sit SYSTOLIC mm[Hg] 2019-06-22 18:09:24 148 mm[Hg] mm[Hg] Method: Stand DIASTOLIC mm[Hg] 2019-09-02 18:10:36 78 mm[Hg] mm[Hg] Method: Sit DIASTOLIC mm[Hg] 2019-06-22 18:09:24 84 mm[Hg] mm[Hg] Method: Stand PULSE 2019-09-02 18:10:36 65 /min /min RESP RATE 2019-09-02 18:10:36 16 /min /min TEMP 2019-09-02 18:10:36 98.1 [degF] Procedures This patient has no known procedures. Results This patient has no known results.
--- OUTSIDE RECORDS SUMMARY | 2019-09-03 09:27 | XMS REPORT ---
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 petroleum terminal plant operator [facility] Diagnosis Active Abigail [...] Resolve 2018-072019-08-02 Mary pain d 08-23 12:50:00 [place] 12:28: [id number] 00 Respiratory dyspnea Respirator Active 2018-07 Mary present y 08-23 [place] 12:28: [id number] 00 Respiratory oxygen Respirator Active 2018-07 Mary treatments y 08-23 [place] in home 12:28: [id number] 00 Respiratory lung sounds Respirator Active 2018-07 Mary deficit y 08-23 [place] 12:28: [id number] 00 Endo/Carlos diabetic Endo/Carlos Resolve 2018-072019-07-30 Mary foot care d 08-23 10:45:00 [place] 12:28: [id number] 00 Sensory impaired Sensory Active 2018-07 Mary hearing 08-23 [place] 12:28: [id number] 00 Integument skin Integument Active 2018-07 Mary integrity 08-23 [place] risk 12:28: [id number] 00 Nutrition nutritional Nutrition Resolve 2018-072019-07-30 Mary restriction d 08-23 10:45:00 [place] s 12:28: [id number] 00 Elimination catheter Eliminatio Active 2018-07 Mary present n 08-23 [place] 12:28: [id number] 00 Elimination ostomy Eliminatio Resolve 2018-072019-06-24 Mary present n d 08-23 14:35:00 [place] 12:28: [id number] 00 Neuro confusion Neuro/Emot Resolve 2018-072019-08-02 Mary present ion d 08-23 12:50:00 [place] 12:28: [id number] 00 Activity ADL Activity Resolve 2018-072019-08-02 Mary assistance d 2- 12:50:00 [place] required 12:28: [id number] 00 Activity self-care Activity Resolve 2018-072019-07-30 Mary deficit d 2- 10:45:00 [place] 12:28: [id number] 00 Safety structural Safety Active 2018-07 Mary barriers 08-23 [place] present 12:28: [id number] 00 Safety fall risk Safety Active 2018-07 Mary factor 08-23 [place] present 12:28: [id number] 00 Safety risk for Safety Active 2018-07 Mary hospitaliza 08-23 [place] tion 12:28: [id number] 00 Safety can be left Safety Active 2018-07 Mary alone for 08-23 [place] only short 12:28: [id number] periods 00 Medication oral med Meds Resolve 2018-072019-08-02 Mary assistance d 2- 12:50:00 [place] required 12:28: [id number] 00 Medication knowledge/s Meds Resolve 2018-072019-08-02 Mary kill d 2- 12:50:00 [place] deficit: pt 12:28: [id number] 00 Medication knowledge/s Meds Resolve 2018-072019-08-02 Mary kill d 08-23 12:50:00 [place] deficit: cg 12:28: [id number] 00 Medication potential Meds Resolve 2018-072019-08-02 Mary clinically d 08-23 12:50:00 [place] significant 12:28: [id number] medication 00 issue Musculoskel transfer Musculoske Active 2018-07 Mary etal assistance letal 08-23 [place] required 12:28: [id number] 00 Musculoskel requires Musculoske Active 2018-07 Mary etal human letal 08-23 [place] assist to 12:28: [id number] leave home 00 Cardio edema Cardiovasc Active [...] Social 2-27 [place] deficit - Services 10:00: [id number] pt 00 Social knowledge/s SERGIO: Active 2018-07 Nancy Services kill Social 2- [place] deficit - Services 10:00: [id number] cg 00 Social knowledge/s SERGIO: Unknown 2018-07 Alicia Services kill Social 2-30 [place] deficit - Services 13:17: [id number] cg 00 Cardio knowledge/s Cardiovasc Active 2020-0 [...] home 10:45: 00 Nutrition nutritional Nutrition Resolve 2019-0 2019-08-06 Abigail restriction d - 12:45:00 Carrier RN s 12:50: 00 Medication knowledge/s Meds Resolve 2019-0 2019-08-06 Abigail kill d - 12:45:00 Carrier RN deficit: pt 16:00: 00 Medication knowledge/s Meds Active 2020-0 Abigail kill 2-03 Carrier RN deficit: pt 16:00: 00 Safety fire risk Safety Active 2020-0 Abigail present 2-05 Carrier RN 18:00: 00 Pain frequent Pain Mgmt Active Abigail pain 08-13 Carrier RN 12:00: 00 Endo/Carlos diabetic Endo/Carlos Active Abigail foot care 08-13 [place]rier RN 12:00: 00 Nutrition nutritional Nutrition Active Abigail restriction 08-13 Carrier RN s 12:00: 00 Neuro confusion Neuro/Emot Active Abigail present ion 08-13 [place]rier RN 12:00: 00 Activity ADL Activity Active Abigail assistance 08-13 [place]rier RN required 12:00: 00 Activity self-care Activity Active Abigail deficit 08-13 [place]rier RN 12:00: 00 Medication oral med Meds Resolve 2019-08-13 Abigail assistance d 08-13 12:00:00 [place] RN required 12:00: 00 Allergies, Adverse Reactions, Alerts Allergy Allergy [...] SALAZAR tablet tablet carvedilol carvedilol 2018-07 Yes [place] Unknown Unknown 25 mg 25 mg 2- Gokul SALAZAR tablet tablet DILT-XR 120 DILT-XR 120 2018-07 Yes Humza Unknown Unknown mg capsule, mg capsule, 2- Gokul SALAZAR extended extended release release isosorbide isosorbide 2018-07 Yes [place] Unknown Unknown mononitrate mononitrate 2-17 Gokul SALAZAR ER 30 mg ER 30 mg tablet,exte tablet,exte nded nded release 24 release 24 hr hr Symbicort Symbicort 2018-07 Yes [place] Unknown Unknown 160 mcg-4.5 160 mcg-4.5 2-17 Gokul SALAZAR mcg/actuati mcg/actuati on HFA on HFA aerosol aerosol inhaler inhaler Spiriva Spiriva 2018-07 Yes Humza Unknown Unknown with with 2- MD,Gokul HandiHaler HandiHaler 18 mcg and 18 mcg and inhalation inhalation capsules capsules ipratropium ipratropium 2018-07 Yes [place] Unknown Unknown -albuterol -albuterol 2- MD,Gokul 0.5 mg-3 0.5 mg-3 mg(2.5 mg mg(2.5 mg base)/3 mL base)/3 mL nebulizatio nebulizatio n soln n soln finasteride finasteride 2018-07 Yes Humza Unknown Unknown 5 mg tablet 5 mg tablet 2- MD,Gokul sertraline sertraline 2018-07 Yes Humza Unknown Unknown 100 mg 100 mg 2- MD,Gokul tablet tablet tamsulosin tamsulosin 2018-07 Yes [place] Unknown Unknown 0.4 mg 0.4 mg 2 MD,Gokul capsule capsule ondansetron ondansetron 2018-07 Yes Humza Unknown Unknown 4 mg 4 mg 2 MD,Gokul disintegrat disintegrat ing tablet ing tablet simethicone simethicone 2018-07 Yes Humza Unknown Unknown 80 mg 80 mg 2- MD,Gokul chewable chewable tablet tablet omeprazole omeprazole 2018-07 Yes [place] Unknown Unknown 20 mg 20 mg 2- MD,Gokul capsule,del capsule,del ayed ayed release release metFORMIN metFORMIN 2018-07 Yes [place] Unknown Unknown 1,000 mg 1,000 mg 2- MD,Gokul tablet tablet levothyroxi levothyroxi 2018-07 Yes [place] Unknown Unknown ne 50 mcg ne 50 mcg 2-17 MD,Gokul tablet tablet Lactobac. Lactobac. 2018-07 Yes Humza Unknown Unknown acidophilus acidophilus 2-17 MD,Gokul -Bifido. -Bifido. animalis 10 animalis 10 billion billion cell cell chewable chewable tablet tablet folic acid folic acid 2018-07 Yes [place] Unknown Unknown 1 mg tablet 1 mg tablet 2-17 MD,Gokul magnesium magnesium 2018-07 Yes [place] Unknown Unknown oxide 400 oxide 400 2- MD,Gokul mg (241.3 mg (241.3 mg mg magnesium) magnesium) tablet tablet colchicine colchicine 2018-07 Yes Humza Unknown Unknown 0.6 mg 0.6 mg 2-17 MD,Gokul tablet tablet cholecalcif cholecalcif 2018-07 Yes [place] Unknown Unknown murray murray - Gokul SALAZAR (vitamin (vitamin D3) 1,000 D3) 1,000 unit unit capsule capsule Tums 200 mg Tums 200 mg 2018-07 Yes Humza Unknown Unknown calcium calcium 08-23 Gokul SALAZAR (500 mg) (500 mg) chewable chewable tablet tablet oxygen oxygen 2018-07 Yes [place] Unknown Unknown 2 Gokul SALAZAR acetaminoph acetaminoph 2018-07 Yes Humza Unknown Unknown en 500 mg en 500 mg 08-29 ,Gokul tablet tablet azithromyci azithromyci 2018-07- Yes [place] Unknown Unknown n 250 mg n 250 mg 09-02 ,Gokul tablet tablet amoxicillin amoxicillin 2018-07- Yes Humza Unknown Unknown [id number] 09-02 Gokul SALAZAR mg-potassiu mg-potassiu m m clavulanate clavulanate 125 mg 125 mg tablet tablet diphenhydrA diphenhydrA 2018-07 Yes Humza Unknown Unknown MINE 25 mg MINE 25 mg 09-02 Gokul SALAZAR tablet tablet Zithromax Zithromax 2018-07- Yes [place] Unknown Unknown 250 mg 250 mg 09-03 Gokul SALAZAR tablet tablet Vital Signs Vital Name Observation Time Observation Value Comments SYSTOLIC mm[Hg] 2019-08-13 18:10:16 130 mm[Hg] mm[Hg] Method: Sit SYSTOLIC mm[Hg] 2019-06-22 18:09:24 148 mm[Hg] mm[Hg] Method: Stand DIASTOLIC mm[Hg] 2019-08-13 18:10:16 70 mm[Hg] mm[Hg] Method: Sit DIASTOLIC mm[Hg] 2019-06-22 18:09:24 84 mm[Hg] mm[Hg] Method: Stand PULSE 2019-08-13 18:10:16 80 /min /min RESP RATE 2019-08-13 18:10:16 16 /min /min TEMP 2019-08-13 18:10:16 97.9 [degF] Procedures This patient has no known procedures. Results This patient has no known results.
--- OUTSIDE RECORDS SUMMARY | 2019-09-03 09:27 | XMS REPORT ---
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 superintendent container terminal [employer] Diagnosis Active Abigail (current) (current) Carrier [...] Resolve 2018-072019-08-02 Mary pain d 08-23 12:50:00 [place] 12:28: [id number] Respiratory dyspnea Respirator Active 2018-07 Mary present y 08-23 [place] 12:28: [id number] Respiratory oxygen Respirator Active 2018-07 Mary treatments y 08-23 [place] in home 12:28: [id number] 00 Respiratory lung sounds Respirator Active 2018-07 Mary deficit y 08-23 [place] 12:28: [id number] 00 Endo/Carlos diabetic Endo/Carlos Resolve 2018-072019-07-30 Mary foot care d 08-23 10:45:00 [place] 12:28: [id number] 00 Sensory impaired Sensory Active 2018-07 Mary hearing 08-23 [place] 12:28: [id number] 00 Integument skin Integument Active 2018-07 Mary integrity 08-23 [place] risk 12:28: [id number] 00 Nutrition nutritional Nutrition Resolve 2018-072019-07-30 Mary restriction d 08-23 10:45:00 [place] s 12:28: [id number] 00 Elimination catheter Eliminatio Active 2018-07 Mary present n 08-23 [place] 12:28: [id number] 00 Elimination ostomy Eliminatio Resolve 2018-072019-06-24 Mary present n d 08-23 14:35:00 [place] 12:28: [id number] 00 Neuro confusion Neuro/Emot Resolve 2018-072019-08-02 Mary present ion d 08-23 12:50:00 [place] 12:28: [id number] 00 Activity ADL Activity Resolve 2018-072019-08-02 Mary assistance d 2- 12:50:00 [place] required 12:28: [id number] 00 Activity self-care Activity Resolve 2018-072019-07-30 Mary deficit d 2-17 10:45:00 [place] 12:28: [id number] 00 Safety structural Safety Active 2018-07 Mary barriers 08-23 [place] present 12:28: [id number] 00 Safety fall risk Safety Active 2018-07 Mary factor 08-23 [place] present 12:28: [id number] 00 Safety risk for Safety Active 2018-07 Mary hospitaliza 08-23 [place] tion 12:28: [id number] 00 Safety can be left Safety Active 2018-07 Mary alone for 08-23 [place] only short 12:28: [id number] periods 00 Medication oral med Meds Resolve 2018-072019-08-02 Mary assistance d 2- 12:50:00 [place] required 12:28: [id number] 00 Medication knowledge/s Meds Resolve 2018-072019-08-02 Mary kill d 2- 12:50:00 [place] deficit: pt 12:28: [id number] 00 Medication knowledge/s Meds Resolve 2018-072019-08-02 Mary kill d 2- 12:50:00 [place] deficit: cg 12:28: [id number] 00 Medication potential Meds Resolve 2018-072019-08-02 Mary clinically d - 12:50:00 [place] significant 12:28: [id number] medication 00 issue Musculoskel transfer Musculoske Active 2018-07 Mary etal assistance letal 08-23 [place] required 12:28: [id number] 00 Musculoskel requires Musculoske Active 2018-07 Mary etal human letal 08-23 [place] assist to 12:28: [id number] leave home 00 Cardio edema Cardiovasc Active [...] Social 2-27 [place] deficit - Services 10:00: [id number] pt 00 Social knowledge/s SERGIO: Active 2018-07 Nancy Services kill Social 2- [place] deficit - Services 10:00: [id number] cg 00 Social knowledge/s SERGIO: Unknown 2018-07 Alicia Services kill Social 2-30 [place] deficit - Services 13:17: [id number] cg 00 Cardio knowledge/s Cardiovasc Active 2019-0 [...] 14:45: required 00 Respiratory BiPAP Respirator Active 2019-0 Abigail treatments y 1-24 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 RN in home 10:45: 00 Nutrition nutritional Nutrition Resolve 2019-0 2019-08-06 Abigail restriction d - 12:45:00 Carrier RN s 12:50: 00 Medication knowledge/s Meds Resolve 2019-0 2019-08-06 Abigail kill d - 12:45:00 Carrier RN deficit: pt 16:00: 00 Medication knowledge/s Meds Active 2020-0 Abigail kill 2-03 Carrier RN deficit: pt 16:00: 00 Safety fire risk Safety Active 2019-0 Abigail present 2-05 Carrier RN 18:00: 00 Allergies, Adverse Reactions, Alerts Allergy Allergy [...] ,Gokul tablet tablet thiamine thiamine 2018-07 Yes [place] Unknown Unknown HCl HCl 2-17 Gokul SALAZAR (vitamin (vitamin B1) 100 mg B1) 100 mg tablet tablet atorvastati atorvastati 2018-07 Yes [place] Unknown Unknown n 20 mg n 20 mg 2- ,Gokul tablet tablet carvedilol carvedilol 2018-07 Yes Humza Unknown Unknown 25 mg 25 mg 2- ,Gokul tablet tablet DILT-XR 120 DILT-XR 120 2018-07 Yes [place] Unknown Unknown mg capsule, mg capsule, 2- [...] aerosol inhaler inhaler Spiriva Spiriva 2018-07 Yes [place] Unknown Unknown with with 2-17 Gokul SALAZAR [...] 2-17 Gokul SALAZAR sertraline sertraline 2018-07 Yes [place] Unknown Unknown 100 mg 100 mg 2-17 Gokul SALAZAR tablet tablet tamsulosin tamsulosin 2018-07 Yes Humza Unknown Unknown 0.4 mg 0.4 mg 08-23 Gokul SALAZAR capsule capsule ondansetron ondansetron 2018-07 Yes Humza Unknown Unknown 4 mg 4 mg 08-23 Gokul SALAZAR disintegrat disintegrat ing tablet ing tablet simethicone simethicone 2018-07 Yes Humza Unknown Unknown 80 mg 80 mg 08-23 [...] ,Gokul tablet tablet Lactobac. Lactobac. 2018-07 Yes [place] Unknown Unknown acidophilus acidophilus 08-23 Gokul SALAZAR -Bifido. -Bifido. animalis 10 animalis 10 billion billion cell cell chewable chewable tablet tablet folic acid folic acid 2018-07 Yes [place] Unknown Unknown 1 mg tablet 1 mg tablet 08-23 Gokul SALAZAR magnesium magnesium 2018-07 Yes Humza Unknown Unknown oxide 400 oxide 400 08-23 Gokul SALAZAR mg (241.3 mg (241.3 mg mg magnesium) magnesium) tablet tablet colchicine colchicine 2018-07 Yes [place] Unknown Unknown 0.6 mg 0.6 mg 08-23 Gokul SALAZAR tablet tablet cholecalcif cholecalcif 2018-07 Yes [place] Unknown Unknown murray murray 08-23 Gokul SALAZAR (vitamin (vitamin D3) 1,000 D3) 1,000 unit unit capsule capsule Tums 200 mg Tums 200 mg 2018-07 Yes [place] Unknown Unknown calcium calcium 08-23 Gokul SALAZAR (500 mg) (500 mg) chewable chewable tablet tablet oxygen oxygen 2018-07 Yes Humza Unknown Unknown 08-23 Gokul SALAZAR acetaminoph acetaminoph 2018-07 Yes [place] Unknown Unknown en 500 mg en 500 mg 08-29 Gokul SALAZAR tablet tablet azithromyci azithromyci 2018-07 Yes Humza Unknown Unknown n 250 mg n 250 mg 09-02 Gokul SALAZAR tablet tablet amoxicillin amoxicillin 2018-07 Yes [place] Unknown Unknown [id number] 09-02 Gokul SALAZAR mg-potassiu mg-potassiu shannan campbell clavulanate clavulanate 125 mg 125 mg tablet tablet diphenhydrA diphenhydrA 2018-07 Yes Humza Unknown Unknown MINE 25 mg MINE 25 mg 09-02 ,Gokul tablet tablet Zithromax Zithromax 2018-07 Yes [place] Unknown Unknown 250 mg 250 mg 09-03 [...]
--- OUTSIDE RECORDS SUMMARY | 2019-09-03 09:27 | XMS REPORT ---
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 Diagnosis Active Abigail (current) (current) [...] Resolve 2018-072019-08-02 Mary pain d 08-23 12:50:00 [place] 12:28: [id number] 00 Respiratory dyspnea Respirator Active 2018-07 Mary present y 08-23 [place] 12:28: [id number] 00 Respiratory oxygen Respirator Active 2018-07 Mary treatments y 08-23 [place] in home 12:28: [id number] Respiratory lung sounds Respirator Active 2018-07 Mary deficit y 08-23 [place] 12:28: [id number] 00 Endo/Carlos diabetic Endo/Carlos Resolve 2018-072019-07-30 Mary foot care d 08-23 10:45:00 [place] 12:28: [id number] 00 Sensory impaired Sensory Active 2018-07 Mary hearing 08-23 [place] 12:28: [id number] 00 Integument skin Integument Active 2018-07 Mary integrity 08-23 [place] risk 12:28: [id number] 00 Nutrition nutritional Nutrition Resolve 2018-072019-07-30 Mary restriction d 08-23 10:45:00 [place] s 12:28: [id number] 00 Elimination catheter Eliminatio Active 2018-07 Mary present n 08-23 [place] 12:28: [id number] 00 Elimination ostomy Eliminatio Resolve 2018-072019-06-24 Mary present n d 08-23 14:35:00 [place] 12:28: [id number] 00 Neuro confusion Neuro/Emot Resolve 2018-072019-08-02 Mary present ion d 08-23 12:50:00 [place] 12:28: [id number] 00 Activity ADL Activity Resolve 2018-072019-08-02 Mary assistance d 2- 12:50:00 [place] required 12:28: [id number] 00 Activity self-care Activity Resolve 2018-072019-07-30 Mary deficit d 2- 10:45:00 [place] 12:28: [id number] 00 Safety structural Safety Active 2018-07 Mary barriers 08-23 [place] present 12:28: [id number] 00 Safety fall risk Safety Active 2018-07 Mary factor 08-23 [place] present 12:28: [id number] 00 Safety risk for Safety Active 2018-07 Mary hospitaliza 08-23 [place] tion 12:28: [id number] 00 Safety can be left Safety Active 2018-07 Mary alone for 08-23 [place] only short 12:28: [id number] periods 00 Medication oral med Meds Resolve 2018-072019-08-02 Mary assistance d 2- 12:50:00 [place] required 12:28: [id number] 00 Medication knowledge/s Meds Resolve 2018-072019-08-02 Mary kill d 2- 12:50:00 [place] deficit: pt 12:28: [id number] 00 Medication knowledge/s Meds Resolve 2018-072019-08-02 Mary kill d 08-23 12:50:00 [place] deficit: cg 12:28: [id number] 00 Medication potential Meds Resolve 2018-072019-08-02 Mary clinically d 08-23 12:50:00 [place] significant 12:28: [id number] medication 00 issue Musculoskel transfer Musculoske Active 2018-07 Mary etal assistance letal 08-23 [place] required 12:28: [id number] Musculoskel requires Musculoske Active 2018-07 Mary etal human letal 08-23 [place] assist to 12:28: [id number] leave home 00 Cardio edema Cardiovasc Active [...] Social 2-27 [place] deficit - Services 10:00: [id number] pt 00 Social knowledge/s SERGIO: Active 2018-07 Nancy Services kill Social 2- [place] deficit - Services 10:00: [id number] cg 00 Social knowledge/s SERGIO: Unknown 2018-07 Alicia Services kill Social 2-30 [place] deficit - Services 13:17: [id number] cg 00 Cardio knowledge/s Cardiovasc Active 2020-0 [...] 00 Nutrition nutritional Nutrition Active Abigail restriction 2- Carrier RN s 12:00: 00 Neuro confusion Neuro/Emot Active Abigail present ion 2- Carrier RN 12:00: 00 Activity ADL Activity Active Abigail assistance 2 Carrier RN required 12:00: 00 Activity self-care Activity Active Abigail deficit 2- Carrier RN 12:00: 00 Medication oral med Meds Active Abigail assistance 08-13 Carrier RN required 12:00: 00 Medication oral [...] (SIG) Name Name furosemide furosemide 2018-07 Yes [place] Unknown Unknown 20 mg 20 mg 2-17 Gokul SALAAZR tablet tablet thiamine thiamine 2018-07 Yes [place] Unknown Unknown HCl HCl 2- Gokul SALAZAR (vitamin (vitamin B1) 100 mg B1) 100 mg tablet tablet atorvastati atorvastati 2018-07 Yes Humza Unknown Unknown n 20 mg n 20 mg 2- Gokul SALAZAR tablet tablet carvedilol carvedilol 2018-07 Yes [place] Unknown Unknown 25 mg 25 mg 2- [...] aerosol inhaler inhaler Spiriva Spiriva 2018-07 Yes [place] Unknown Unknown with with 2- Gokul SALAZAR [...] Unknown Unknown 100 mg 100 mg 2 ,Gokul tablet tablet tamsulosin tamsulosin 2018-07 Yes [place] Unknown Unknown 0.4 mg 0.4 mg 2 ,Gokul capsule capsule ondansetron ondansetron 2018-07 Yes Humza Unknown Unknown 4 mg 4 mg 08-23 Gokul SALAZAR disintegrat disintegrat ing tablet ing tablet simethicone simethicone 2018-07 Yes [place] Unknown Unknown 80 mg 80 mg 2- ,Gokul chewable chewable tablet tablet omeprazole omeprazole 2018-07 Yes [place] Unknown Unknown 20 mg 20 mg 2- [...] tablet folic acid folic acid 2018-07 Yes [place] Unknown Unknown 1 mg tablet 1 mg tablet 2- ,Gokul magnesium magnesium 2018-07 Yes [place]za Unknown Unknown oxide 400 oxide 400 2- ,Gokul mg (241.3 mg (241.3 mg mg magnesium) magnesium) tablet tablet colchicine colchicine 2018-07 Yes Humza Unknown Unknown 0.6 mg 0.6 mg 2 Gokul SALAZAR tablet tablet cholecalcif cholecalcif 2018-07 Yes Humza Unknown Unknown murray murray 08-23 Gokul SALAZAR (vitamin (vitamin D3) 1,000 D3) 1,000 unit unit capsule capsule Tums 200 mg Tums 200 mg 2018-07 Yes [place] Unknown Unknown calcium calcium 2 Gokul SALAZAR (500 mg) (500 mg) chewable chewable tablet tablet oxygen oxygen 2018-07 Yes [place] Unknown Unknown 2 Gokul SALAZAR acetaminoph acetaminoph 2018-07 Yes [place] Unknown Unknown en 500 mg en 500 mg 08-29 Gokul SALAZAR tablet tablet azithromyci azithromyci 2018-07- Yes [place] Unknown Unknown n 250 mg n 250 mg 09-02 Gokul SALAZAR tablet tablet amoxicillin amoxicillin 2018-07 Yes [place] Unknown Unknown [id number] 09-02 Gokul SALAZAR mg-potassiu mg-potassiu m m clavulanate clavulanate 125 mg 125 mg tablet tablet diphenhydrA diphenhydrA 2018-07 Yes [place] Unknown Unknown MINE 25 mg MINE 25 mg 09-02 Gokul SALAZAR tablet tablet Zithromax Zithromax 2018-07 Yes [place] Unknown Unknown 250 mg 250 mg 09-03 Gokul SALAZAR tablet tablet oxygen oxygen Yes [place] Unknown Unknown 2 Gokul SALAZAR Vital Signs Vital Name Observation Time Observation Value Comments SYSTOLIC mm[Hg] 2019-08-20 18:10:23 128 mm[Hg] mm[Hg] Method: Sit SYSTOLIC mm[Hg] 2019-06-22 18:09:24 148 mm[Hg] mm[Hg] Method: Stand DIASTOLIC mm[Hg] 2019-08-20 18:10:23 78 mm[Hg] mm[Hg] Method: Sit DIASTOLIC mm[Hg] 2019-06-22 18:09:24 84 mm[Hg] mm[Hg] Method: Stand PULSE 2019-08-20 18:10:23 78 /min /min RESP RATE 2019-08-20 18:10:23 16 /min /min TEMP 2019-08-20 18:10:23 98.3 [degF] Procedures This patient has no known procedures. Results This patient has no known results.
--- OUTSIDE RECORDS SUMMARY | 2019-09-03 09:27 | XMS REPORT ---
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 shelter Diagnosis Active Abigail (current) (current) Carrier [...] Resolve 2018-072019-08-02 Mary pain d 08-23 12:50:00 [place] 12:28: [id number] 00 Respiratory dyspnea Respirator Active 2018-07 Mary present y 08-23 [place] 12:28: [id number] 00 Respiratory oxygen Respirator Active 2018-07 Mary treatments y 08-23 [place] in home 12:28: [id number] 00 Respiratory lung sounds Respirator Active 2018-07 Mary deficit y 08-23 [place] 12:28: [id number] 00 Endo/Carlos diabetic Endo/Carlos Resolve 2018-072019-07-30 Mary foot care d 08-23 10:45:00 [place] 12:28: [id number] 00 Sensory impaired Sensory Active 2018-07 Mary hearing 08-23 [place] 12:28: [id number] 00 Integument skin Integument Active 2018-07 Mary integrity 08-23 [place] risk 12:28: [id number] 00 Nutrition nutritional Nutrition Resolve 2018-072019-07-30 Mary restriction d 08-23 10:45:00 [place] s 12:28: [id number] 00 Elimination catheter Eliminatio Active 2018-07 Mary present n 08-23 [place] 12:28: [id number] 00 Elimination ostomy Eliminatio Resolve 2018-072019-06-24 Mary present n d 08-23 14:35:00 [place] 12:28: [id number] 00 Neuro confusion Neuro/Emot Resolve 2018-072019-08-02 Mary present ion d 08-23 12:50:00 [place] 12:28: [id number] 00 Activity ADL Activity Resolve 2018-072019-08-02 Mary assistance d 2- 12:50:00 [place] required 12:28: [id number] 00 Activity self-care Activity Resolve 2018-072019-07-30 Mary deficit d 2-17 10:45:00 [place] 12:28: [id number] 00 Safety structural Safety Active 2018-07 Mary barriers 08-23 [place] present 12:28: [id number] 00 Safety fall risk Safety Active 2018-07 Mary factor 08-23 [place] present 12:28: [id number] 00 Safety risk for Safety Active 2018-07 Mary hospitaliza 08-23 [place] tion 12:28: [id number] 00 Safety can be left Safety Active 2018-07 Mary alone for 08-23 [place] only short 12:28: [id number] periods 00 Medication oral med Meds Resolve 2018-072019-08-02 Mary assistance d 2- 12:50:00 [place] required 12:28: [id number] 00 Medication knowledge/s Meds Resolve 2018-072019-08-02 Mary kill d 2- 12:50:00 [place] deficit: pt 12:28: [id number] 00 Medication knowledge/s Meds Resolve 2018-072019-08-02 Mary kill d 2- 12:50:00 [place] deficit: cg 12:28: [id number] 00 Medication potential Meds Resolve 2018-072019-08-02 Mary clinically d - 12:50:00 [place] significant 12:28: [id number] medication 00 issue Musculoskel transfer Musculoske Active 2018-07 Mary etal assistance letal 08-23 [place] required 12:28: [id number] 00 Musculoskel requires Musculoske Active 2018-07 Mary etal human letal 08-23 [place] assist to 12:28: [id number] leave home 00 Cardio edema Cardiovasc Active [...] Social 2-27 [place] deficit - Services 10:00: [id number] pt 00 Social knowledge/s SERGIO: Active 2018-07 Nancy Services kill Social 2- [place] deficit - Services 10:00: [id number] cg 00 Social knowledge/s SERGIO: Unknown 2018-07 Alicia Services kill Social 2-30 [place] deficit - Services 13:17: [id number] cg 00 Cardio knowledge/s Cardiovasc Active 2020-0 [...] 14:45: 00 Medication inhalant Meds Active 2019-0 Aibgail med 1-17 Carrier RN assistance 14:45: required 00 Respiratory BiPAP Respirator Active 2020-0 Abigail treatments y 1-24 Carrier RN in home 10:45: 00 Nutrition nutritional Nutrition Resolve 0 2019-08-06 Abigail restriction d - 12:45:00 Carrier RN s 12:50: 00 Medication knowledge/s Meds Resolve 2019-0 2019-08-06 Abigail kill d - 12:45:00 Carrier RN deficit: pt 16:00: 00 Medication knowledge/s Meds Active 2020-0 Abigail kill 2-03 Carrier RN deficit: pt 16:00: 00 Allergies, [...] SALAZAR tablet tablet thiamine thiamine 2018-07 Yes [place] Unknown Unknown HCl HCl 2- Gokul SALAZAR (vitamin (vitamin B1) 100 mg B1) 100 mg tablet tablet atorvastati atorvastati 2018-07 Yes Humza Unknown Unknown n 20 mg n 20 mg 2- ,Gokul tablet tablet carvedilol carvedilol 2018-07 Yes [place] Unknown Unknown 25 mg 25 mg 2- ,Gokul tablet tablet DILT-XR 120 DILT-XR 120 2018-07 Yes [place] Unknown Unknown mg capsule, mg capsule, 2- [...] 2- Gokul SALAZAR sertraline sertraline 2018-07 Yes [place] Unknown Unknown 100 mg 100 mg 2- Gokul SALAZAR tablet tablet tamsulosin tamsulosin 2018-07 Yes [place] Unknown Unknown 0.4 mg 0.4 mg 2- MD,Gokul capsule capsule ondansetron ondansetron 2018-07 Yes [...] ayed release release metFORMIN metFORMIN 2018-07 Yes [place] Unknown Unknown 1,000 mg 1,000 mg 08-23 Gokul SALAZAR tablet tablet levothyroxi levothyroxi 2018-07 Yes [place] Unknown Unknown ne 50 mcg ne 50 mcg 08-23 Gokul SALAZAR tablet tablet Lactobac. Lactobac. 2018-07 Yes [place] Unknown Unknown acidophilus acidophilus 08-23 Gokul SALAZAR -Bifido. -Bifido. animalis 10 animalis 10 billion billion cell cell chewable chewable tablet tablet folic acid folic acid 2018-07 Yes [place] Unknown Unknown 1 mg tablet 1 mg tablet 08-23 Gokul SALAZAR magnesium magnesium 2018-07 Yes [place] Unknown Unknown oxide 400 oxide 400 08-23 Gokul SALAZAR mg (241.3 mg (241.3 mg mg magnesium) magnesium) tablet tablet colchicine colchicine 2018-07 Yes [place] Unknown Unknown 0.6 mg 0.6 mg 08-23 Gokul SALAZAR tablet tablet cholecalcif cholecalcif 2018-07 Yes [place] Unknown Unknown murray murray 08-23 Gokul SALAZAR (vitamin (vitamin D3) 1,000 D3) 1,000 unit unit capsule capsule Tums 200 mg Tums 200 mg 2018-07 Yes [place] Unknown Unknown calcium calcium 08-23 Gokul SALAZAR (500 mg) (500 mg) chewable chewable tablet tablet oxygen oxygen 2018-07 Yes [place] Unknown Unknown 08-23 Gokul SALAZAR acetaminoph acetaminoph 2018-07 Yes Humza Unknown Unknown en 500 mg en 500 mg 08-29 Gokul SALAZAR tablet tablet azithromyci azithromyci 2018-07 Yes [place] Unknown Unknown n 250 mg n 250 mg 09-02 Gokul SALAZAR tablet tablet amoxicillin amoxicillin 2018-07 Yes [place] Unknown Unknown [id number] 09-02 Gokul SALAZAR mg-potassiu mg-potassiu m m clavulanate clavulanate 125 mg 125 mg tablet tablet diphenhydrA diphenhydrA 2018-07 Yes Humza Unknown Unknown MINE 25 mg MINE 25 mg 09-02 MD,Gokul tablet tablet Zithromax Zithromax 2018-07- Yes [place] Unknown Unknown 250 mg 250 mg 09-03 MD,Gokul tablet tablet Vital Signs Vital Name Observation [...]
--- OUTSIDE RECORDS SUMMARY | 2019-09-03 09:27 | XMS REPORT ---
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 Diagnosis Active Abigail (current) (current) [...] Resolve 2018-072019-08-02 Mary pain d 08-23 12:50:00 [place] 12:28: [id number] Respiratory dyspnea Respirator Active 2018-07 Mary present y 08-23 [place] 12:28: [id number] Respiratory oxygen Respirator Active 2018-07 Mary treatments y 08-23 [place] in home 12:28: [id number] Respiratory lung sounds Respirator Active 2018-07 Mary deficit y 08-23 [place] 12:28: [id number] 00 Endo/Carlos diabetic Endo/Carlos Resolve 2018-072019-07-30 Mary foot care d 08-23 10:45:00 [place] 12:28: [id number] 00 Sensory impaired Sensory Active 2018-07 Mary hearing 08-23 [place] 12:28: [id number] 00 Integument skin Integument Active 2018-07 Mary integrity 08-23 [place] risk 12:28: [id number] 00 Nutrition nutritional Nutrition Resolve 2018-072019-07-30 Mary restriction d 08-23 10:45:00 [place] s 12:28: [id number] 00 Elimination catheter Eliminatio Active 2018-07 Mary present n 08-23 [place] 12:28: [id number] 00 Elimination ostomy Eliminatio Resolve 2018-072019-06-24 Mary present n d 08-23 14:35:00 [place] 12:28: [id number] 00 Neuro confusion Neuro/Emot Resolve 2018-072019-08-02 Mary present ion d 08-23 12:50:00 [place] 12:28: [id number] 00 Activity ADL Activity Resolve 2018-072019-08-02 Mary assistance d 2- 12:50:00 [place] required 12:28: [id number] 00 Activity self-care Activity Resolve 2018-072019-07-30 Mary deficit d 2-17 10:45:00 [place] 12:28: [id number] 00 Safety structural Safety Active 2018-07 Mary barriers 08-23 [place] present 12:28: [id number] Safety fall risk Safety Active 2018-07 Mary factor 08-23 [place] present 12:28: [id number] 00 Safety risk for Safety Active 2018-07 Mary hospitaliza 08-23 [place] tion 12:28: [id number] 00 Safety can be left Safety Active 2018-07 Mary alone for 08-23 [place] only short 12:28: [id number] periods 00 Medication oral med Meds Resolve 2018-072019-08-02 Mary assistance d 2- 12:50:00 [place] required 12:28: [id number] 00 Medication knowledge/s Meds Resolve 2018-072019-08-02 Mary kill d 2- 12:50:00 [place] deficit: pt 12:28: [id number] 00 Medication knowledge/s Meds Resolve 2018-072019-08-02 Mary kill d 2- 12:50:00 [place] deficit: cg 12:28: [id number] 00 Medication potential Meds Resolve 2018-072019-08-02 Mary clinically d - 12:50:00 [place] significant 12:28: [id number] medication 00 issue Musculoskel transfer Musculoske Active 2018-07 Mary etal assistance letal 08-23 [place] required 12:28: [id number] 00 Musculoskel requires Musculoske Active 2018-07 Mary etal human letal 08-23 [place] assist to 12:28: [id number] leave home 00 Cardio edema Cardiovasc Active [...] Social 2-27 [place] deficit - Services 10:00: [id number] pt 00 Social knowledge/s SERGIO: Active 2018-07 Nancy Services kill Social 2- [place] deficit - Services 10:00: [id number] cg 00 Social knowledge/s SERGIO: Unknown 2018-07 Alicia Services kill Social 2-30 [place] deficit - Services 13:17: [id number] cg 00 Cardio knowledge/s Cardiovasc Active 2020-0 [...] SALAZAR tablet tablet thiamine thiamine 2018-07 Yes [place] Unknown Unknown HCl HCl 2- Gokul SALAZAR (vitamin (vitamin B1) 100 mg B1) 100 mg tablet tablet atorvastati atorvastati 2018-07 Yes Humza Unknown Unknown n 20 mg n 20 mg 2- ,Gokul tablet tablet carvedilol carvedilol 2018-07 Yes Humza Unknown Unknown 25 mg 25 mg 2- ,Gokul tablet tablet DILT-XR 120 DILT-XR 120 2018-07 Yes [place] Unknown Unknown mg capsule, mg capsule, 2- [...] 2- Gokul SALAZAR sertraline sertraline 2018-07 Yes [place] Unknown Unknown 100 mg 100 mg 2- Gokul SALAZAR tablet tablet tamsulosin tamsulosin 2018-07 Yes [place] Unknown Unknown 0.4 mg 0.4 mg 2- [...] ayed release release metFORMIN metFORMIN 2018-07 Yes [place] Unknown Unknown 1,000 mg 1,000 mg 08-23 Gokul SALAZAR tablet tablet levothyroxi levothyroxi 2018-07 Yes [place] Unknown Unknown ne 50 mcg ne 50 mcg 08-23 Gokul SALAZAR tablet tablet Lactobac. Lactobac. 2018-07 Yes [place] Unknown Unknown acidophilus acidophilus 08-23 Gokul SALAZAR -Bifido. -Bifido. animalis 10 animalis 10 billion billion cell cell chewable chewable tablet tablet folic acid folic acid 2018-07 Yes [place] Unknown Unknown 1 mg tablet 1 mg tablet 08-23 Gokul SALAZAR magnesium magnesium 2018-07 Yes [place] Unknown Unknown oxide 400 oxide 400 08-23 Gokul SALAZAR mg (241.3 mg (241.3 mg mg magnesium) magnesium) tablet tablet colchicine colchicine 2018-07 Yes [place] Unknown Unknown 0.6 mg 0.6 mg 08-23 Gokul SALAZAR tablet tablet cholecalcif cholecalcif 2018-07 Yes [place] Unknown Unknown murray murray 08-23 Gokul SALAZAR (vitamin (vitamin D3) 1,000 D3) 1,000 unit unit capsule capsule Tums 200 mg Tums 200 mg 2018-07 Yes [place] Unknown Unknown calcium calcium 08-23 Gokul SALAZAR (500 mg) (500 mg) chewable chewable tablet tablet oxygen oxygen 2018-07 Yes Humza Unknown Unknown 08-23 Gokul SALAZAR acetaminoph acetaminoph 2018-07 Yes Humza Unknown Unknown en 500 mg en 500 mg 08-29 Gokul SALAZAR tablet tablet azithromyci azithromyci 2018-07 Yes [place] Unknown Unknown n 250 mg n 250 mg 09-02 Gokul SALAZAR tablet tablet amoxicillin amoxicillin 2018-07 Yes [place] Unknown Unknown [id number] 09-02 Gokul SALAZAR mg-potassiu mg-potassiu m m clavulanate clavulanate 125 mg 125 mg tablet tablet diphenhydrA diphenhydrA 2018-07 Yes Humza Unknown Unknown MINE 25 mg MINE 25 mg 09-02 MD,Gokul tablet tablet Zithromax Zithromax 2018-07- Yes [place] Unknown Unknown 250 mg 250 mg 09-03 [...]
--- OUTSIDE RECORDS SUMMARY | 2019-09-03 09:27 | XMS REPORT ---
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 [...] Resolve 2018-072019-08-02 Mary pain d 08-23 12:50:00 [place] 12:28: [id number] Respiratory dyspnea Respirator Active 2018-07 Mary present y 08-23 [place] 12:28: [id number] 00 Respiratory oxygen Respirator Active 2018-07 Mary treatments y 08-23 [place] in home 12:28: [id number] 00 Respiratory lung sounds Respirator Active 2018-07 Mary deficit y 08-23 [place] 12:28: [id number] 00 Endo/Carlos diabetic Endo/Carlos Resolve 2018-072019-07-30 Mary foot care d 08-23 10:45:00 [place] 12:28: [id number] 00 Sensory impaired Sensory Active 2018-07 Mary hearing 08-23 [place] 12:28: [id number] 00 Integument skin Integument Active 2018-07 Mary integrity 08-23 [place] risk 12:28: [id number] Nutrition nutritional Nutrition Resolve 2018-072019-07-30 Mary restriction d 08-23 10:45:00 [place] s 12:28: [id number] 00 Elimination catheter Eliminatio Active 2018-07 Mary present n 08-23 [place] 12:28: [id number] 00 Elimination ostomy Eliminatio Resolve 2018-072019-06-24 Mary present n d 08-23 14:35:00 [place] 12:28: [id number] 00 Neuro confusion Neuro/Emot Resolve 2018-072019-08-02 Mary present ion d 08-23 12:50:00 [place] 12:28: [id number] 00 Activity ADL Activity Resolve 2018-072019-08-02 Mary assistance d 2- 12:50:00 [place] required 12:28: [id number] 00 Activity self-care Activity Resolve 2018-072019-07-30 Mary deficit d 2-17 10:45:00 [place] 12:28: [id number] 00 Safety structural Safety Active 2018-07 Mary barriers 08-23 [place] present 12:28: [id number] 00 Safety fall risk Safety Active 2018-07 Mary factor 08-23 [place] present 12:28: [id number] 00 Safety risk for Safety Active 2018-07 Mary hospitaliza 08-23 [place] tion 12:28: [id number] 00 Safety can be left Safety Active 2018-07 Mary alone for 08-23 [place] only short 12:28: [id number] periods 00 Medication oral med Meds Resolve 2018-072019-08-02 Mary assistance d 2- 12:50:00 [place] required 12:28: [id number] 00 Medication knowledge/s Meds Resolve 2018-072019-08-02 Mary kill d 2- 12:50:00 [place] deficit: pt 12:28: [id number] 00 Medication knowledge/s Meds Resolve 2018-072019-08-02 Mary kill d 2- 12:50:00 [place] deficit: cg 12:28: [id number] 00 Medication potential Meds Resolve 2018-072019-08-02 Mary clinically d - 12:50:00 [place] significant 12:28: [id number] medication 00 issue Musculoskel transfer Musculoske Active 2018-07 Mary etal assistance letal 08-23 [place] required 12:28: [id number] 00 Musculoskel requires Musculoske Active 2018-07 Mary etal human letal 08-23 [place] assist to 12:28: [id number] leave home 00 Cardio edema Cardiovasc Active [...] Social 2-27 [place] deficit - Services 10:00: [id number] pt 00 Social knowledge/s SERGIO: Active 2018-07 Nancy Services kill Social 2- [place] deficit - Services 10:00: [id number] cg 00 Social knowledge/s SERGIO: Unknown 2018-07 Alicia Services kill Social 2-30 [place] deficit - Services 13:17: [id number] cg 00 Cardio knowledge/s Cardiovasc Active 2019-0 [...] ,Gokul tablet tablet thiamine thiamine 2018-07 Yes [place] Unknown Unknown HCl HCl 2-17 Gokul SALAZAR (vitamin (vitamin B1) 100 mg B1) 100 mg tablet tablet atorvastati atorvastati 2018-07 Yes [place] Unknown Unknown n 20 mg n 20 mg 2- ,Gokul tablet tablet carvedilol carvedilol 2018-07 Yes Humza Unknown Unknown 25 mg 25 mg 2- ,Gokul tablet tablet DILT-XR 120 DILT-XR 120 2018-07 Yes [place] Unknown Unknown mg capsule, mg capsule, 2- [...] aerosol inhaler inhaler Spiriva Spiriva 2018-07 Yes [place] Unknown Unknown with with 2-17 Gokul SALAZAR [...] 2-17 Gokul SALAZAR sertraline sertraline 2018-07 Yes [place] Unknown Unknown 100 mg 100 mg 2-17 [...] ,Gokul tablet tablet Lactobac. Lactobac. 2018-07 Yes [place] Unknown Unknown acidophilus acidophilus 08-23 Gokul SALAZAR -Bifido. -Bifido. animalis 10 animalis 10 billion billion cell cell chewable chewable tablet tablet folic acid folic acid 2018-07 Yes [place] Unknown Unknown 1 mg tablet 1 mg tablet 08-23 Gokul SALAZAR magnesium magnesium 2018-07 Yes Humza Unknown Unknown oxide 400 oxide 400 08-23 Gokul SALAZAR mg (241.3 mg (241.3 mg mg magnesium) magnesium) tablet tablet colchicine colchicine 2018-07 Yes [place] Unknown Unknown 0.6 mg 0.6 mg 08-23 Gokul SALAZAR tablet tablet cholecalcif cholecalcif 2018-07 Yes [place] Unknown Unknown murray murray 08-23 Gokul SALAZAR (vitamin (vitamin D3) 1,000 D3) 1,000 unit unit capsule capsule Tums 200 mg Tums 200 mg 2018-07 Yes [place] Unknown Unknown calcium calcium 08-23 Gokul SALAZAR (500 mg) (500 mg) chewable chewable tablet tablet oxygen oxygen 2018-07 Yes Humza Unknown Unknown 08-23 Gokul SALAZAR acetaminoph acetaminoph 2018-07 Yes [place] Unknown Unknown en 500 mg en 500 mg 08-29 Gokul SALAZAR tablet tablet azithromyci azithromyci 2018-07 Yes Humza Unknown Unknown n 250 mg n 250 mg 09-02 Gokul SALAZAR tablet tablet amoxicillin amoxicillin 2018-07 Yes [place] Unknown Unknown [id number] 09-02 [place] SALAZARsantaassiu mg-dianaiu shannan campbell clavulanate clavulanate 125 mg 125 mg tablet tablet diphenhydrA diphenhydrA 2018-07 Yes Humza Unknown Unknown MINE 25 mg MINE 25 mg 09-02 Gokul SALAZAR tablet tablet Zithromax Zithromax 2018-07- Yes [place] Unknown Unknown 250 mg 250 mg 09-03 Gokul SALAZAR tablet tablet Vital Signs Vital Name Observation Time Observation Value Comments SYSTOLIC mm[Hg] 2019-06-22 18:09:24 148 mm[Hg] mm[Hg] Method: Stand DIASTOLIC mm[Hg] 2019-06-22 18:09:24 84 mm[Hg] mm[Hg] Method: Stand Procedures This patient has no known procedures. Results This patient has no known results.
--- OUTSIDE RECORDS SUMMARY | 2019-09-03 09:27 | XMS REPORT ---
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 use of use of inhaled inhaled steroids steroids shelter shelter Diagnosis Active Abigail (current) (current) Carrier [...] Resolve 2018-072019-08-02 Mary pain d 08-23 12:50:00 [place] 12:28: [id number] 00 Respiratory dyspnea Respirator Active 2018-07 Mary present y 08-23 [place] 12:28: [id number] 00 Respiratory oxygen Respirator Active 2018-07 Mary treatments y 08-23 [place] in home 12:28: [id number] 00 Respiratory lung sounds Respirator Active 2018-07 Mary deficit y 08-23 [place] 12:28: [id number] 00 Endo/Carlos diabetic Endo/Carlos Resolve 2018-072019-07-30 Mary foot care d 08-23 10:45:00 [place] 12:28: [id number] 00 Sensory impaired Sensory Active 2018-07 Mary hearing 08-23 [place] 12:28: [id number] 00 Integument skin Integument Active 2018-07 Mary integrity 08-23 [place] risk 12:28: [id number] 00 Nutrition nutritional Nutrition Resolve 2018-072019-07-30 Mary restriction d 08-23 10:45:00 [place] s 12:28: [id number] 00 Elimination catheter Eliminatio Active 2018-07 Mary present n 08-23 [place] 12:28: [id number] 00 Elimination ostomy Eliminatio Resolve 2018-072019-06-24 Mary present n d 08-23 14:35:00 [place] 12:28: [id number] 00 Neuro confusion Neuro/Emot Resolve 2018-072019-08-02 Mary present ion d 08-23 12:50:00 [place] 12:28: [id number] 00 Activity ADL Activity Resolve 2018-072019-08-02 Mary assistance d 2- 12:50:00 [place] required 12:28: [id number] 00 Activity self-care Activity Resolve 2018-072019-07-30 Mary deficit d 2-17 10:45:00 [place] 12:28: [id number] 00 Safety structural Safety Active 2018-07 Mary barriers 08-23 [place] present 12:28: [id number] 00 Safety fall risk Safety Active 2018-07 Mary factor 08-23 [place] present 12:28: [id number] Safety risk for Safety Active 2018-07 Mary hospitaliza 08-23 [place] tion 12:28: [id number] 00 Safety can be left Safety Active 2018-07 Mary alone for 08-23 [place] only short 12:28: [id number] periods 00 Medication oral med Meds Resolve 2018-072019-08-02 Mary assistance d 2- 12:50:00 [place] required 12:28: [id number] 00 Medication knowledge/s Meds Resolve 2018-072019-08-02 Mary kill d 2- 12:50:00 [place] deficit: pt 12:28: [id number] 00 Medication knowledge/s Meds Resolve 2018-072019-08-02 Mary kill d 2- 12:50:00 [place] deficit: cg 12:28: [id number] 00 Medication potential Meds Resolve 2018-072019-08-02 Mary clinically d - 12:50:00 [place] significant 12:28: [id number] medication 00 issue Musculoskel transfer Musculoske Active 2018-07 Mary etal assistance letal 08-23 [place] required 12:28: [id number] 00 Musculoskel requires Musculoske Active 2018-07 Mary etal human letal 08-23 [place] assist to 12:28: [id number] leave home 00 Cardio edema Cardiovasc Active [...] Social 2-27 [place] deficit - Services 10:00: [id number] pt 00 Social knowledge/s SERGIO: Active 2018-07 Nancy Services kill Social 2- [place] deficit - Services 10:00: [id number] cg 00 Social knowledge/s SERGIO: Unknown 2018-07 Alicia Services kill Social 2-30 [place] deficit - Services 13:17: [id number] cg 00 Cardio knowledge/s Cardiovasc Active 2019-0 [...] pt 16:00: 00 Medication knowledge/s Meds Active 2019-0 Abigail kill 2-03 Carrier RN deficit: pt 16:00: 00 Safety fire risk Safety Active 2019- Abigail present 2-05 Carrier RN 18:00: 00 Pain frequent Pain Mgmt Active Abigail pain 08-13 Carrier RN 12:00: 00 Endo/Carlos diabetic Endo/Carlos Active Abigail foot care - Carrier RN 12:00: 00 Nutrition nutritional Nutrition [...] (SIG) Name Name furosemide furosemide 2018-07 Yes [place] Unknown Unknown 20 mg 20 mg 2- Gokul SALAZAR tablet tablet thiamine thiamine 2018-07 Yes Humza Unknown Unknown HCl HCl 2- Gokul SALAZAR (vitamin (vitamin B1) 100 mg B1) 100 mg tablet tablet atorvastati atorvastati 2018-07 Yes Humza Unknown Unknown n 20 mg n 20 mg 2- Gokul SALAZAR tablet tablet carvedilol carvedilol 2018-07 Yes [place] Unknown Unknown 25 mg 25 mg 2- Gokul SALAZAR tablet tablet DILT-XR 120 DILT-XR 120 2018-07 Yes [place] Unknown Unknown mg capsule, mg capsule, 2- Gokul SALAZAR extended extended release release isosorbide isosorbide 2018-07 Yes [place] Unknown Unknown mononitrate mononitrate 2-17 Gokul SALAZAR ER 30 mg ER 30 mg tablet,exte tablet,exte nded nded release 24 release 24 hr hr Symbicort Symbicort 2018-07 Yes Humza Unknown Unknown 160 mcg-4.5 160 mcg-4.5 2-17 Gokul SALAZAR mcg/actuati mcg/actuati on HFA on HFA aerosol aerosol inhaler inhaler Spiriva Spiriva 2018-07 Yes [place] Unknown Unknown with with 2 Gokul SALAZAR HandiHaler HandiHaler 18 mcg and 18 mcg and inhalation inhalation capsules capsules ipratropium ipratropium 2018-07 Yes [place] Unknown Unknown -albuterol -albuterol 2- Gokul SALAZAR 0.5 mg-3 0.5 mg-3 mg(2.5 mg mg(2.5 mg base)/3 mL base)/3 mL nebulizatio nebulizatio n soln n soln finasteride finasteride 2018-07 Yes [place] Unknown Unknown 5 mg tablet 5 mg tablet 2 Gokul SALAZAR sertraline sertraline 2018-07 Yes Humza Unknown Unknown 100 mg 100 mg 2 ,Gokul tablet tablet tamsulosin tamsulosin 2018-07 Yes Humza Unknown Unknown 0.4 mg 0.4 mg 2 ,[place] capsule capsule ondansetron ondansetron 2018-07 Yes Humza Unknown Unknown 4 mg 4 mg 2 Gokul SALAZAR disintegrat disintegrat ing tablet ing tablet simethicone simethicone 2018-07 Yes Humza Unknown Unknown 80 mg 80 mg 2 Gokul SALAZAR chewable chewable tablet tablet omeprazole omeprazole 2018-07 Yes [place] Unknown Unknown 20 mg 20 mg 2- Gokul SALAZAR capsule,del capsule,del ayed ayed release release metFORMIN metFORMIN 2018-07 Yes [place] Unknown Unknown 1,000 mg 1,000 mg 2 ,Gokul tablet tablet levothyroxi levothyroxi 2018-07 Yes [place] Unknown Unknown ne 50 mcg ne 50 mcg 2- Gokul SALAZAR tablet tablet Lactobac. Lactobac. 2018-07 Yes Humza Unknown Unknown acidophilus acidophilus 2- Gokul SALAZAR -Bifido. -Bifido. animalis 10 animalis 10 billion billion cell cell chewable chewable tablet tablet folic acid folic acid 2018-07 Yes [place] Unknown Unknown 1 mg tablet 1 mg tablet 2- Gokul SALAZAR magnesium magnesium 2018-07 Yes [place] Unknown Unknown oxide 400 oxide 400 2- Gokul SALAZAR mg (241.3 mg (241.3 mg mg magnesium) magnesium) tablet tablet colchicine colchicine 2018-07 Yes [place] Unknown Unknown 0.6 mg 0.6 mg 2- ,Gokul tablet tablet cholecalcif cholecalcif 2018-07 Yes Humza Unknown Unknown murray murray 08-23 Gokul SALAZAR (vitamin (vitamin D3) 1,000 D3) 1,000 unit unit capsule capsule Tums 200 mg Tums 200 mg 2018-07 Yes Humza Unknown Unknown calcium calcium 08-23 Gokul SALAZAR (500 mg) (500 mg) chewable chewable tablet tablet oxygen oxygen 2018-07 Yes [place] Unknown Unknown 08-23 Gokul SALZAAR acetaminoph acetaminoph 2018-07 Yes Humza Unknown Unknown en 500 mg en 500 mg 08-29 ,Gokul tablet tablet azithromyci azithromyci 2018-07- Yes Humza [...]
--- OUTSIDE RECORDS SUMMARY | 2019-09-03 09:27 | XMS REPORT ---
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 Diagnosis Active Abigail (current) (current) Carrier RN [...] Resolve 2018-072019-08-02 Mary pain d 08-23 12:50:00 [place] 12:28: [id number] Respiratory dyspnea Respirator Active 2018-07 Mary present y 08-23 [place] 12:28: [id number] 00 Respiratory oxygen Respirator Active 2018-07 Mary treatments y 08-23 [place] in home 12:28: [id number] 00 Respiratory lung sounds Respirator Active 2018-07 Mary deficit y 08-23 [place] 12:28: [id number] 00 Endo/Carlos diabetic Endo/Carlos Resolve 2018-072019-07-30 Mary foot care d 08-23 10:45:00 [place] 12:28: [id number] 00 Sensory impaired Sensory Active 2018-07 Mary hearing 08-23 [place] 12:28: [id number] 00 Integument skin Integument Active 2018-07 Mary integrity 08-23 [place] risk 12:28: [id number] 00 Nutrition nutritional Nutrition Resolve 2018-072019-07-30 Mary restriction d 08-23 10:45:00 [place] s 12:28: [id number] 00 Elimination catheter Eliminatio Active 2018-07 Mary present n 08-23 [place] 12:28: [id number] 00 Elimination ostomy Eliminatio Resolve 2018-072019-06-24 Mary present n d 08-23 14:35:00 [place] 12:28: [id number] 00 Neuro confusion Neuro/Emot Resolve 2018-072019-08-02 Mary present ion d 08-23 12:50:00 [place] 12:28: [id number] 00 Activity ADL Activity Resolve 2018-072019-08-02 Mary assistance d 2- 12:50:00 [place] required 12:28: [id number] 00 Activity self-care Activity Resolve 2018-072019-07-30 Mary deficit d 2-17 10:45:00 [place] 12:28: [id number] 00 Safety structural Safety Active 2018-07 Mary barriers 08-23 [place] present 12:28: [id number] 00 Safety fall risk Safety Active 2018-07 Mary factor 08-23 [place] present 12:28: [id number] 00 Safety risk for Safety Active 2018-07 Mary hospitaliza 08-23 [place] tion 12:28: [id number] 00 Safety can be left Safety Active 2018-07 Mary alone for 08-23 [place] only short 12:28: [id number] periods 00 Medication oral med Meds Resolve 2018-072019-08-02 Mary assistance d 2- 12:50:00 [place] required 12:28: [id number] 00 Medication knowledge/s Meds Resolve 2018-072019-08-02 Mary kill d 2- 12:50:00 [place] deficit: pt 12:28: [id number] 00 Medication knowledge/s Meds Resolve 2018-072019-08-02 Mary kill d 2- 12:50:00 [place] deficit: cg 12:28: [id number] 00 Medication potential Meds Resolve 2018-072019-08-02 Mary clinically d - 12:50:00 [place] significant 12:28: [id number] medication 00 issue Musculoskel transfer Musculoske Active 2018-07 Mary etal assistance letal 08-23 [place] required 12:28: [id number] 00 Musculoskel requires Musculoske Active 2018-07 Mary etal human letal 08-23 [place] assist to 12:28: [id number] leave home 00 Cardio edema Cardiovasc Active [...] Social 2-27 [place] deficit - Services 10:00: [id number] pt 00 Social knowledge/s SERGIO: Active 2018-07 Nancy Services kill Social 2- [place] deficit - Services 10:00: [id number] cg 00 Social knowledge/s SERGIO: Unknown 2018-07 Alicia Services kill Social 2-30 [place] deficit - Services 13:17: [id number] cg 00 Cardio knowledge/s Cardiovasc Active 2019-0 [...] ,Gokul tablet tablet thiamine thiamine 2018-07 Yes [place] Unknown Unknown HCl HCl 2-17 Gokul SALAZAR (vitamin (vitamin B1) 100 mg B1) 100 mg tablet tablet atorvastati atorvastati 2018-07 Yes [place] Unknown Unknown n 20 mg n 20 mg 2- ,Gokul tablet tablet carvedilol carvedilol 2018-07 Yes Humza Unknown Unknown 25 mg 25 mg 2- ,Gokul tablet tablet DILT-XR 120 DILT-XR 120 2018-07 Yes [place] Unknown Unknown mg capsule, mg capsule, [...] aerosol inhaler inhaler Spiriva Spiriva 2018-07 Yes [place] Unknown Unknown with with 2-17 Gokul ASLAZAR HandiHaler HandiHaler 18 mcg and 18 mcg and inhalation inhalation capsules capsules ipratropium ipratropium 2018-07 Yes Humza Unknown Unknown -albuterol -albuterol 2-17 Gokul SALAZAR 0.5 mg-3 0.5 mg-3 mg(2.5 mg mg(2.5 mg base)/3 mL base)/3 mL nebulizatio nebulizatio n soln n soln finasteride finasteride 2018-07 Yes Humza Unknown Unknown 5 mg tablet 5 mg tablet 2-17 Gokul SALAZAR sertraline sertraline 2018-07 Yes [place] Unknown Unknown 100 mg 100 mg 2-17 [...] ,Gokul tablet tablet Lactobac. Lactobac. 2018-07 Yes [place] Unknown Unknown acidophilus acidophilus 08-23 Gokul SALAZAR -Bifido. -Bifido. animalis 10 animalis 10 billion billion cell cell chewable chewable tablet tablet folic acid folic acid 2018-07 Yes [place] Unknown Unknown 1 mg tablet 1 mg tablet 08-23 Gokul SALAZAR magnesium magnesium 2018-07 Yes Humza Unknown Unknown oxide 400 oxide 400 08-23 Gokul SALAZAR mg (241.3 mg (241.3 mg mg magnesium) magnesium) tablet tablet colchicine colchicine 2018-07 Yes [place] Unknown Unknown 0.6 mg 0.6 mg 08-23 Gokul SALAZAR tablet tablet cholecalcif cholecalcif 2018-07 Yes [place] Unknown Unknown murray murray 08-23 Gokul SALAZAR (vitamin (vitamin D3) 1,000 D3) 1,000 unit unit capsule capsule Tums 200 mg Tums 200 mg 2018-07 Yes [place] Unknown Unknown calcium calcium 08-23 Gokul SALAZAR (500 mg) (500 mg) chewable chewable tablet tablet oxygen oxygen 2018-07 Yes Humza Unknown Unknown 08-23 Gokul SALAZAR acetaminoph acetaminoph 2018-07 Yes [place] Unknown Unknown en 500 mg en 500 mg 08-29 Gokul SALAZAR tablet tablet azithromyci azithromyci 2018-07 Yes Humza Unknown Unknown n 250 mg n 250 mg 09-02 Gokul SALAZAR tablet tablet amoxicillin amoxicillin 2018-07 Yes [place] Unknown Unknown [id number] 09-02 Gokul SALAZAR mg-potassiu mg-potassiu shannan campbell clavulanate clavulanate 125 mg 125 mg tablet tablet diphenhydrA diphenhydrA 2018-07 Yes Humza Unknown Unknown MINE 25 mg MINE 25 mg 09-02 ,Gokul tablet tablet Zithromax Zithromax 2018-07 Yes [place] Unknown Unknown 250 mg 250 mg [...]
--- OUTSIDE RECORDS SUMMARY | 2019-09-03 09:27 | XMS REPORT ---
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 terminal supervisor residential Diagnosis Active Abigail (current) (current) Carrier RN [...] 2018-072019-08-02 Mary pain d 08-23 12:50:00 [place] 12:28: [id number] 00 Respiratory dyspnea Respirator Active 2018-07 Mary present y 08-23 [place] 12:28: [id number] Respiratory oxygen Respirator Active 2018-07 Mary treatments y 08-23 [place] in home 12:28: [id number] 00 Respiratory lung sounds Respirator Active 2018-07 Mary deficit y 08-23 [place] 12:28: [id number] Endo/Carlos diabetic Endo/Carlos Resolve 2018-072019-07-30 Mary foot care d 08-23 10:45:00 [place] 12:28: [id number] 00 Sensory impaired Sensory Active 2018-07 Mary hearing 08-23 [place] 12:28: [id number] 00 Integument skin Integument Active 2018-07 Mary integrity 08-23 [place] risk 12:28: [id number] 00 Nutrition nutritional Nutrition Resolve 2018-072019-07-30 Mary restriction d 08-23 10:45:00 [place] s 12:28: [id number] 00 Elimination catheter Eliminatio Active 2018-07 Mary present n 08-23 [place] 12:28: [id number] 00 Elimination ostomy Eliminatio Resolve 2018-072019-06-24 Mary present n d 08-23 14:35:00 [place] 12:28: [id number] 00 Neuro confusion Neuro/Emot Resolve 2018-072019-08-02 Mary present ion d 08-23 12:50:00 [place] 12:28: [id number] 00 Activity ADL Activity Resolve 2018-072019-08-02 Mary assistance d 2- 12:50:00 [place] required 12:28: [id number] 00 Activity self-care Activity Resolve 2018-072019-07-30 Mary deficit d 2- 10:45:00 [place] 12:28: [id number] 00 Safety structural Safety Active 2018-07 Mary barriers 08-23 [place] present 12:28: [id number] 00 Safety fall risk Safety Active 2018-07 Mary factor 08-23 [place] present 12:28: [id number] 00 Safety risk for Safety Active 2018-07 Mary hospitaliza 08-23 [place] tion 12:28: [id number] 00 Safety can be left Safety Active 2018-07 Mary alone for 08-23 [place] only short 12:28: [id number] periods 00 Medication oral med Meds Resolve 2018-072019-08-02 Mary assistance d 2- 12:50:00 [place] required 12:28: [id number] 00 Medication knowledge/s Meds Resolve 2018-072019-08-02 Mary kill d 2- 12:50:00 [place] deficit: pt 12:28: [id number] 00 Medication knowledge/s Meds Resolve 2018-072019-08-02 Mary kill d 08-23 12:50:00 [place] deficit: cg 12:28: [id number] 00 Medication potential Meds Resolve 2018-072019-08-02 Mary clinically d 08-23 12:50:00 [place] significant 12:28: [id number] medication 00 issue Musculoskel transfer Musculoske Active 2018-07 Mary etal assistance letal 08-23 [place] required 12:28: [id number] 00 Musculoskel requires Musculoske Active 2018-07 Mary etal human letal 08-23 [place] assist to 12:28: [id number] leave home 00 Cardio edema Cardiovasc Active [...] Social 2-27 [place] deficit - Services 10:00: [id number] pt 00 Social knowledge/s SERGIO: Active 2018-07 Nancy Services kill Social 2- [place] deficit - Services 10:00: [id number] cg 00 Social knowledge/s SERGIO: Unknown 2018-07 Alicia Services kill Social 2-30 [place] deficit - Services 13:17: [id number] cg 00 Cardio knowledge/s Cardiovasc Active 2020-0 [...] SALAZAR tablet tablet carvedilol carvedilol 2018-07 Yes [place] Unknown Unknown 25 mg 25 mg 2- Gokul SALAZAR tablet tablet DILT-XR 120 DILT-XR 120 2018-07 Yes Humza Unknown Unknown mg capsule, mg capsule, 2- Gokul SALAZAR extended extended release release isosorbide isosorbide 2018-07 Yes [place] Unknown Unknown mononitrate mononitrate 2-17 Gokul SALAZAR ER 30 mg ER 30 mg tablet,exte tablet,exte nded nded release 24 release 24 hr hr Symbicort Symbicort 2018-07 Yes [place] Unknown Unknown 160 mcg-4.5 160 mcg-4.5 2-17 Gokul SALAZAR mcg/actuati mcg/actuati on HFA on HFA aerosol aerosol inhaler inhaler Spiriva Spiriva 2018-07 Yes Humza Unknown Unknown with with 2- MD,Gokul HandiHaler HandiHaler 18 mcg and 18 mcg and inhalation inhalation capsules capsules ipratropium ipratropium 2018-07 Yes [place] Unknown Unknown -albuterol -albuterol 2- MD,Gokul 0.5 mg-3 0.5 mg-3 mg(2.5 mg mg(2.5 mg base)/3 mL base)/3 mL nebulizatio nebulizatio n soln n soln finasteride finasteride 2018-07 Yes Humza Unknown Unknown 5 mg tablet 5 mg tablet 2- MD,Gokul sertraline sertraline 2018-07 Yes Humza Unknown Unknown 100 mg 100 mg 2- MD,Gokul tablet tablet tamsulosin tamsulosin 2018-07 Yes [place] Unknown Unknown 0.4 mg 0.4 mg 2 MD,Gokul capsule capsule ondansetron ondansetron 2018-07 Yes Humza Unknown Unknown 4 mg 4 mg 2 MD,Gokul disintegrat disintegrat ing tablet ing tablet simethicone simethicone 2018-07 Yes Humza Unknown Unknown 80 mg 80 mg 2- MD,Gokul chewable chewable tablet tablet omeprazole omeprazole 2018-07 Yes [place] Unknown Unknown 20 mg 20 mg 2- MD,Gokul capsule,del capsule,del ayed ayed release release metFORMIN metFORMIN 2018-07 Yes [place] Unknown Unknown 1,000 mg 1,000 mg 2- MD,Gokul tablet tablet levothyroxi levothyroxi 2018-07 Yes [place] Unknown Unknown ne 50 mcg ne 50 mcg 2-17 MD,Gokul tablet tablet Lactobac. Lactobac. 2018-07 Yes Humza Unknown Unknown acidophilus acidophilus 2-17 MD,Gokul -Bifido. -Bifido. animalis 10 animalis 10 billion billion cell cell chewable chewable tablet tablet folic acid folic acid 2018-07 Yes [place] Unknown Unknown 1 mg tablet 1 mg tablet 2-17 MD,Gokul magnesium magnesium 2018-07 Yes [place] Unknown Unknown oxide 400 oxide 400 2- MD,Gokul mg (241.3 mg (241.3 mg mg magnesium) magnesium) tablet tablet colchicine colchicine 2018-07 Yes Humza Unknown Unknown 0.6 mg 0.6 mg 2-17 MD,Gokul tablet tablet cholecalcif cholecalcif 2018-07 Yes [place] Unknown Unknown murray murray - Gokul SALAZAR (vitamin (vitamin D3) 1,000 D3) 1,000 unit unit capsule capsule Tums 200 mg Tums 200 mg 2018-07 Yes Humza Unknown Unknown calcium calcium 08-23 Gokul SALAZAR (500 mg) (500 mg) chewable chewable tablet tablet oxygen oxygen 2018-07 Yes [place] Unknown Unknown 2 Gokul SALAZAR acetaminoph acetaminoph 2018-07 Yes Humza Unknown Unknown en 500 mg en 500 mg 08-29 ,Gokul tablet tablet azithromyci azithromyci 2018-07- Yes [place] Unknown Unknown n 250 mg n 250 mg 09-02 ,Gokul tablet tablet amoxicillin amoxicillin 2018-07- Yes Humza Unknown Unknown [id number] 09-02 Gokul SALAZAR mg-potassiu mg-potassiu m m clavulanate clavulanate 125 mg 125 mg tablet tablet diphenhydrA diphenhydrA 2018-07 Yes Humza Unknown Unknown MINE 25 mg MINE 25 mg 09-02 Gokul SALAZAR tablet tablet Zithromax Zithromax 2018-07- Yes [place] Unknown Unknown 250 mg 250 mg 09-03 [...]
--- OUTSIDE RECORDS SUMMARY | 2019-09-03 09:27 | XMS REPORT ---
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 use of use of inhaled inhaled steroids 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 Abigail (current) (current) Carrier [...] Resolve 2018-072019-08-02 Mary pain d 08-23 12:50:00 [place] 12:28: [id number] Respiratory dyspnea Respirator Active 2018-07 Mary present y 08-23 [place] 12:28: [id number] 00 Respiratory oxygen Respirator Active 2018-07 Mary treatments y 08-23 [place] in home 12:28: [id number] 00 Respiratory lung sounds Respirator Active 2018-07 Mary deficit y 08-23 [place] 12:28: [id number] 00 Endo/Carlos diabetic Endo/Carlos Resolve 2018-072019-07-30 Mary foot care d 08-23 10:45:00 [place] 12:28: [id number] 00 Sensory impaired Sensory Active 2018-07 Mary hearing 08-23 [place] 12:28: [id number] 00 Integument skin Integument Active 2018-07 Mary integrity 08-23 [place] risk 12:28: [id number] 00 Nutrition nutritional Nutrition Resolve 2018-072019-07-30 Mary restriction d 08-23 10:45:00 [place] s 12:28: [id number] 00 Elimination catheter Eliminatio Active 2018-07 Mary present n 08-23 [place] 12:28: [id number] 00 Elimination ostomy Eliminatio Resolve 2018-072019-06-24 Mary present n d 08-23 14:35:00 [place] 12:28: [id number] 00 Neuro confusion Neuro/Emot Resolve 2018-072019-08-02 Mary present ion d 08-23 12:50:00 [place] 12:28: [id number] 00 Activity ADL Activity Resolve 2018-072019-08-02 Mary assistance d 2- 12:50:00 [place] required 12:28: [id number] 00 Activity self-care Activity Resolve 2018-072019-07-30 Mary deficit d 2- 10:45:00 [place] 12:28: [id number] 00 Safety structural Safety Active 2018-07 Mary barriers 08-23 [place] present 12:28: [id number] 00 Safety fall risk Safety Active 2018-07 Mary factor 08-23 [place] present 12:28: [id number] 00 Safety risk for Safety Active 2018-07 Mary hospitaliza 08-23 [place] tion 12:28: [id number] 00 Safety can be left Safety Active 2018-07 Mary alone for 08-23 [place] only short 12:28: [id number] periods 00 Medication oral med Meds Resolve 2018-072019-08-02 Mary assistance d 2- 12:50:00 [place] required 12:28: [id number] 00 Medication knowledge/s Meds Resolve 2018-072019-08-02 Mary kill d 2- 12:50:00 [place] deficit: pt 12:28: [id number] 00 Medication knowledge/s Meds Resolve 2018-072019-08-02 Mary kill d 08-23 12:50:00 [place] deficit: cg 12:28: [id number] 00 Medication potential Meds Resolve 2018-072019-08-02 Mary clinically d 08-23 12:50:00 [place] significant 12:28: [id number] medication 00 issue Musculoskel transfer Musculoske Active 2018-07 Mary etal assistance letal 08-23 [place] required 12:28: [id number] 00 Musculoskel requires Musculoske Active 2018-07 Mary etal human letal 08-23 [place] assist to 12:28: [id number] leave home 00 Cardio edema Cardiovasc Active [...] Social 2-27 [place] deficit - Services 10:00: [id number] pt 00 Social knowledge/s SERGIO: Active 2018-07 Nancy Services kill Social 2- [place] deficit - Services 10:00: [id number] cg 00 Social knowledge/s SERGIO: Unknown 2018-07 Alicia Services kill Social 2-30 [place] deficit - Services 13:17: [id number] cg 00 Cardio knowledge/s Cardiovasc Active 2020-0 [...] (SIG) Name Name furosemide furosemide 2018-07 Yes [place] Unknown Unknown 20 mg 20 mg 2-17 Gokul SALAZAR tablet tablet thiamine thiamine 2018-07 Yes [place] Unknown Unknown HCl HCl 2- Gokul SALAZAR (vitamin (vitamin B1) 100 mg B1) 100 mg tablet tablet atorvastati atorvastati 2018-07 Yes Humza Unknown Unknown n 20 mg n 20 mg 2- Gokul SALAZAR tablet tablet carvedilol carvedilol 2018-07 Yes [place] Unknown Unknown 25 mg 25 mg 2- [...] aerosol inhaler inhaler Spiriva Spiriva 2018-07 Yes [place] Unknown Unknown with with 2- Gokul SALAZAR [...] tablet ing tablet simethicone simethicone 2018-07 Yes [place] Unknown Unknown 80 mg 80 mg 2- ,Gokul chewable chewable tablet tablet omeprazole omeprazole 2018-07 Yes [place] Unknown Unknown 20 mg 20 mg 2- [...] tablet folic acid folic acid 2018-07 Yes [place] Unknown Unknown 1 mg tablet 1 mg [...] 200 mg Tums 200 mg 2018-07 Yes [place] Unknown Unknown calcium calcium 2 Gokul SALAZAR (500 mg) (500 mg) chewable chewable tablet tablet oxygen oxygen 2018-07 Yes [place] Unknown Unknown 2 Gokul SALAZAR acetaminoph acetaminoph 2018-07 Yes Humza Unknown Unknown en 500 mg en 500 mg 08-29 Gokul SALAZAR tablet tablet azithromyci azithromyci 2018-07- Yes [place] Unknown Unknown n 250 mg n 250 mg 09-02 Gokul SALAZAR tablet tablet amoxicillin amoxicillin 2018-07 Yes [place] Unknown Unknown [id number] 09-02 Gokul SALAZAR mg-potassiu mg-potassiu m m clavulanate clavulanate 125 mg 125 mg tablet tablet diphenhydrA diphenhydrA 2018-07 Yes [place] Unknown Unknown MINE 25 mg MINE 25 mg 09-02 Gokul SALAZAR tablet tablet Zithromax Zithromax 2018-07 Yes Humza Unknown Unknown 250 mg 250 mg 09-03 Gokul SALAZAR tablet tablet oxygen oxygen Yes [place] Unknown Unknown 2 Gokul SALAZAR Vital Signs [...]
[2019-09-03 09:41] LABS: ABS Eosinophils 0.2 10^3/ul (0-0.6); ABS Lymphocytes 0.9 10^3/ul (1.0-4.8); ABS Monocytes 0.5 10^3/ul (0-0.8); ABS Neutrophils 5.4 10^3/ul (1.5-7.7); Eosinophil % 3.5 %; Hematocrit 38 % (42-52); Hemoglobin 12.6 g/dL (14.0-18.0); Lymphocyte % 12.3 %; Mean Corpuscular HGB Conc 33 g/dL (31-36); Mean Corpuscular Hemoglobin 28 pg (27-31); Mean Corpuscular Volume 83 fL (80-94); Mean Platelet Volume 7.7 fL (7.4-10.4); Platelet Count 180 10^3/uL (150-450); Red Blood Count 4.57 10^6 /uL (4.18-5.48); Red Cell Distribution Width 15 % (10-15); White Blood Count 7.1 10^3/uL (3.5-10.8)
[2019-09-03 09:55] LABS: Albumin 4.1 g/dL (3.2-5.2); Albumin/Globulin Ratio 1.4 (1-3); BUN/Creatinine Ratio 15.5 (8-20); C Reactive Protein 9.54 mg/L (<8.01); Calcium 9.4 mg/dL (8.6-10.3); EGFR Non-African American 109.1 (>60); Globulin 2.9 g/dL (2-4); Potassium 4.3 mmol/L (3.5-5.0); Total Bilirubin 0.4 mg/dL (0.2-1.0)
[2019-09-03 10:57] VITALS: BP 166/97
== END 2019-09-03 10:56 | disposition home or self-care (01) ==
LOC: ED 09:08
DX: R06.00 Dyspnea, unspecified (principal); J44.9 Chronic obstructive pulmonary disease, unspecified; Z99.81 Dependence on supplemental oxygen; E11.9 Type 2 diabetes mellitus without complications; E03.9 Hypothyroidism, unspecified; I48.91 Unspecified atrial fibrillation; I11.0 Hypertensive heart disease with heart failure; I50.9 Heart failure, unspecified; N40.0 Benign prostatic hyperplasia without lower urinary tract symptoms; F43.10 Post-traumatic stress disorder, unspecified; Z87.891 Personal history of nicotine dependence; Z79.84 Long term (current) use of oral hypoglycemic drugs; Z79.890 Hormone replacement therapy; Z79.899 Other long term (current) drug therapy
CPT/HCPCS: 36415; 71046; 80053; 85025; 86140; 99283

== ENCOUNTER 2020-01-05 04:07 | Observation (INO) ==
[2020-01-05] MEDS ORDERED: NS 0.9% 1000 ml BAG 1,000 ML IV ONE (04:10)
[2020-01-05] MEDS ORDERED: methylPREDNISolone 125 mg 2 ML VIAL IV ONE (04:18)
[2020-01-05] MEDS ORDERED: Albuterol/Ipratropium NEB.SOL (2.5/0.5 MG) 3 ML NEB.SOLN ONE (04:18)
[2020-01-05] MEDS ORDERED: Albuterol/Ipratropium NEB.SOL (2.5/0.5 MG) 3 ML NEB.SOLN INH ONE (04:18)
[2020-01-05 04:25] LABS: ABS Eosinophils 0.3 10^3/ul (0-0.6); ABS Lymphocytes 1.6 10^3/ul (1.0-4.8); ABS Monocytes 0.8 10^3/ul (0-0.8); Eosinophil % 2.7 %; Hematocrit 39 % (42-52); Hemoglobin 12.5 g/dL (14.0-18.0); Lymphocyte % 13.8 %; Mean Corpuscular HGB Conc 32 g/dL (31-36); Mean Corpuscular Hemoglobin 26 pg (27-31); Mean Corpuscular Volume 81 fL (80-94); Mean Platelet Volume 7.7 fL (7.4-10.4); Nucleated Red Blood Cells % 0.1; Platelet Count 286 10^3/uL (150-450); Red Blood Count 4.86 10^6 /uL (4.18-5.48); Red Cell Distribution Width 15 % (10-15); White Blood Count 11.4 10^3/uL (3.5-10.8)
[2020-01-05 04:33] LABS: Activated Partial Thrombo Time 26.2 seconds (26.0-38.0); INR 1.03 (0.82-1.09)
[2020-01-05 04:44] LABS: Albumin 4.3 g/dL (3.2-5.2); Albumin/Globulin Ratio 1.3 (1-3); BUN/Creatinine Ratio 14.9 (8-20); EGFR African American 95.5 (>60); EGFR Non-African American 78.9 (>60); Globulin 3.4 g/dL (2-4); Potassium 4.5 mmol/L (3.5-5.0); Total Bilirubin 0.5 mg/dL (0.2-1.0); Total Protein 7.7 g/dL (6.4-8.9)
[2020-01-05 04:47] LABS: Troponin I 0.01 ng/mL (<0.03)
[2020-01-05] MEDS ORDERED: Furosemide 40 mg/4 ml IV VIAL IV SLOW PU ONE (05:36)
[2020-01-05] MEDS ORDERED: Lorazepam PYXIS KEY PRN (06:19)
[2020-01-05] MEDS ORDERED: LORazepam 2 mg VIAL 1 ml IV PUSH ONE (06:19)
[2020-01-05 06:46] LABS: Urine Appearance Clear; Urine Bilirubin Negative (Negative); Urine Blood Negative (Negative); Urine Color Straw; Urine Glucose 2+(150 mg/dL) (Negative); Urine Ketones Negative (Negative); Urine Nitrite Negative (Negative); Urine Protein 2+(100 mg/dL) (Negative); Urine Specific Gravity 1.012 (1.010-1.030); Urine Urobilinogen Negative (Negative)
[2020-01-05 06:48] LABS: Urine Bacteria Absent (Absent); Urine Red Blood Cell Trace(0-2/hpf) (Absent); Urine Squamous Epithelial Cell Present (Absent); Urine White Blood Cell Trace(0-5/hpf) (Absent)
[2020-01-05] MEDS ORDERED: Albuterol/Ipratropium NEB.SOL (2.5/0.5 MG) 3 ML NEB.SOLN INH PRN (09:11)
[2020-01-05] MEDS ORDERED: Magnesium Hydroxide LIQ 30 ML UDC PO PRN (09:11)
[2020-01-05] MEDS ORDERED: Al Hydrox/Mg Hydrox/Simet LIQ 30 ML UDC PO PRN (09:11)
[2020-01-05] MEDS ORDERED: Dextrose 50% Syringe 50 ml 25 GM/50 ML SYRINGE IV PUSH PRN (09:18)
[2020-01-05 09:39] LABS: Magnesium 1.7 mg/dL (1.9-2.7)
[2020-01-05] MEDS ORDERED: Magnesium Sulfate 2 gm BAG 2 GM/50 ML BAG IVPB ONE (10:04)
[2020-01-05] MEDS ORDERED: Ondansetron ODT 4 mg TAB 4 MG TAB PO PRN (10:05)
[2020-01-05] MEDS: Enoxaparin 40 MG/0.4 ML SYR(*) SUBCUT SCH (10:43)
[2020-01-05] MEDS: Insulin LISPRO 100 units/ml(*) SUBCUT SCH ×2 (11:55→17:19)
[2020-01-05] MEDS: SPIRIVA Respimat (tiotropium) 2.5 mcg/inh Inhaler INH SCH (13:09)
[2020-01-05] MEDS: Mometasone/Formoter 200/5 MDI INH SCH ×2 (13:10→19:53)
[2020-01-05 13:58] LABS: Total Iron Binding Capacity 438 mcg/dL (250-450); Transferrin 313 mg/dL (203-362)
[2020-01-05 14:18] LABS: Ferritin 48.5 ng/mL (24-336)
[2020-01-05 15:42] LABS: BUN/Creatinine Ratio 22.6 (8-20); Calcium 9.2 mg/dL (8.6-10.3); EGFR African American 96.6 (>60); EGFR Non-African American 79.9 (>60); Potassium 3.9 mmol/L (3.5-5.0)
[2020-01-05] MEDS ORDERED: Potassium Chlor 20 meq TAB.ER PO ONE (16:24)
[2020-01-06] MEDS ORDERED: Iron Sucrose 200 MG in NS 0.9% 100 ml BAG 100 ML IVPB ONE (08:20)
[2020-01-06] MEDS: Mometasone/Formoter 200/5 MDI INH SCH (08:34)
[2020-01-06] MEDS: SPIRIVA Respimat (tiotropium) 2.5 mcg/inh Inhaler INH SCH (08:35)
[2020-01-06] MEDS ORDERED: Isosorbide Mononit ER 30mg TAB PO SCH (09:00)
[2020-01-06] MEDS: Insulin LISPRO 100 units/ml(*) SUBCUT SCH (09:11)
[2020-01-06] MEDS: Enoxaparin 40 MG/0.4 ML SYR(*) SUBCUT SCH (09:11)
[2020-01-06 11:20] VITALS: BP 143/82
== END 2020-01-06 12:14 | disposition home or self-care (01) ==
LOC: MEDTELE 04:07 → ED 04:07 → MEDTELE 09:40
PROVIDERS: ADMIT Internal Medicine; ATTEND Internal Medicine

== ENCOUNTER 2020-06-29 11:49 | Inpatient (IN) ==
[2020-06-29] MEDS ORDERED: NS 0.9% 1000 ml BAG 1,000 ML IV ONE (11:57)
[2020-06-29] MEDS ORDERED: methylPREDNISolone 125 mg 2 ML VIAL IV ONE (11:59)
[2020-06-29] MEDS ORDERED: Albuterol/Ipratropium NEB.SOL (2.5/0.5 MG) 3 ML NEB.SOLN INH ONE (11:59)
[2020-06-29 12:10] LABS: ABS Basophils 0.1 10^3/ul (0-0.2); ABS Eosinophils 0.5 10^3/ul (0-0.6); ABS Lymphocytes 2.8 10^3/ul (1.0-4.8); ABS Neutrophils 6.8 10^3/ul (1.5-7.7); Eosinophil % 4.7 %; Hematocrit 44 % (42-52); Hemoglobin 14.5 g/dL (14.0-18.0); Lymphocyte % 25.1 %; Mean Corpuscular HGB Conc 33 g/dL (31-36); Mean Corpuscular Hemoglobin 27 pg (27-31); Mean Corpuscular Volume 82 fL (80-94); Mean Platelet Volume 7.9 fL (7.4-10.4); Platelet Count 312 10^3/uL (150-450); Red Blood Count 5.41 10^6 /uL (4.18-5.48); Red Cell Distribution Width 14 % (10-15); White Blood Count 11.3 10^3/uL (3.5-10.8)
[2020-06-29] MEDS ORDERED: Diltiazem (ADVAN VIAL) 100 MG/100 ML ADDV.BAG IV ONE (12:10)
[2020-06-29] MEDS ORDERED: Diltiazem IV push/loading dose 5 MG/ML 5 ML vial (25 mg) IV SLOW PU ONE (12:10)
[2020-06-29 12:19] LABS: Activated Partial Thrombo Time 29.7 seconds (26.0-38.0); INR 1.01 (0.82-1.09)
[2020-06-29 12:29] LABS: Albumin 4.6 g/dL (3.2-5.2); Albumin/Globulin Ratio 1.3 (1-3); BUN/Creatinine Ratio 14.3 (8-20); Calcium 9.1 mg/dL (8.6-10.3); EGFR African American 108.4 (>60); EGFR Non-African American 89.6 (>60); Globulin 3.6 g/dL (2-4); Potassium 4.6 mmol/L (3.5-5.0); Total Bilirubin 0.3 mg/dL (0.2-1.0); Total Protein 8.2 g/dL (6.4-8.9)
[2020-06-29 12:35] LABS: BNP 312 pg/mL (<=100)
[2020-06-29 13:01] LABS: Ammonia 67 mcmol/L (16-53)
[2020-06-29] MEDS ORDERED: Furosemide 40 mg/4 ml IV VIAL IV ONE (13:13)
[2020-06-29] MEDS ORDERED: Albuterol/Ipratropium NEB.SOL (2.5/0.5 MG) 3 ML NEB.SOLN INH SCH (16:00)
[2020-06-29] MEDS ORDERED: Dextrose 50% Syringe 50 ml 25 GM/50 ML SYRINGE IV PUSH PRN (16:52)
[2020-06-29] MEDS: DOXYcycline 100 MG in NS 0.9% 250 ml 250 ML IVPB SCH (18:10)
[2020-06-29] MEDS: cefTRIAXone 2 GM ADDV.VIAL 2 GM in NS 0.9% 100 ml BAG 100 ML IV SCH (18:11)
[2020-06-29] MEDS ORDERED: Albuterol/Ipratropium NEB.SOL (2.5/0.5 MG) 3 ML NEB.SOLN INH PRN (18:28)
[2020-06-29] MEDS: Albuterol/Ipratropium NEB.SOL (2.5/0.5 MG) 3 ML NEB.SOLN INH SCH ×2 (19:05→22:51)
[2020-06-29] MEDS: Insulin GLARGINE 100 un/ml 10 ml VIAL SUBCUT SCH (21:13)
[2020-06-29] MEDS: Heparin 5000 UNITS/ML 1 mL VIAL SUBCUT SCH (21:14)
[2020-06-29] MEDS: methylPREDNISolone SOD 40 mg/ml 1 ml VIAL IV SCH (21:14)
[2020-06-30] MEDS: Albuterol/Ipratropium NEB.SOL (2.5/0.5 MG) 3 ML NEB.SOLN INH SCH ×3 (03:12→11:45)
[2020-06-30] MEDS: DOXYcycline 100 MG in NS 0.9% 250 ml 250 ML IVPB SCH ×2 (04:41→16:05)
[2020-06-30] MEDS: methylPREDNISolone SOD 40 mg/ml 1 ml VIAL IV SCH ×3 (04:41→20:44)
[2020-06-30] MEDS: Heparin 5000 UNITS/ML 1 mL VIAL SUBCUT SCH ×3 (05:21→20:46)
[2020-06-30 05:27] LABS: ABS Lymphocytes 0.6 10^3/ul (1.0-4.8); ABS Monocytes 0.1 10^3/ul (0-0.8); Hematocrit 38 % (42-52); Hemoglobin 12.5 g/dL (14.0-18.0); Lymphocyte % 6.5 %; Mean Corpuscular HGB Conc 33 g/dL (31-36); Mean Corpuscular Hemoglobin 27 pg (27-31); Mean Corpuscular Volume 81 fL (80-94); Mean Platelet Volume 8.1 fL (7.4-10.4); Platelet Count 261 10^3/uL (150-450); Red Cell Distribution Width 14 % (10-15); White Blood Count 8.7 10^3/uL (3.5-10.8)
[2020-06-30 05:42] LABS: BUN/Creatinine Ratio 18.5 (8-20); Calcium 8.7 mg/dL (8.6-10.3); EGFR Non-African American 93.4 (>60); Potassium 4.1 mmol/L (3.5-5.0)
[2020-06-30 05:58] LABS: TSH Ultra Thyroid Stim Horm 0.26 mcIU/mL (0.34-5.60)
[2020-06-30] MEDS ORDERED: Ipratropium HFA INHALER(NF) (ALTERNATIVE = NEBS) INH SCH (12:00)
[2020-06-30] MEDS: Albuterol HFA INHALER 8 gm MDI INH SCH ×3 (12:16→20:41)
[2020-06-30 12:52] LABS: Free T4 0.84 ng/dL (0.61-1.12)
[2020-06-30] MEDS ORDERED: Albuterol HFA INHALER 8 gm MDI INH ONE (12:57)
[2020-06-30] MEDS: cefTRIAXone 2 GM ADDV.VIAL 2 GM in NS 0.9% 100 ml BAG 100 ML IV SCH (16:04)
[2020-06-30] MEDS: Insulin GLARGINE 100 un/ml 10 ml VIAL SUBCUT SCH (20:46)
[2020-07-01] MEDS: Albuterol HFA INHALER 8 gm MDI INH SCH ×2 (01:34→03:04)
[2020-07-01] MEDS: DOXYcycline 100 MG in NS 0.9% 250 ml 250 ML IVPB SCH ×2 (04:10→17:21)
[2020-07-01] MEDS: methylPREDNISolone SOD 40 mg/ml 1 ml VIAL IV SCH ×2 (05:59→12:59)
[2020-07-01] MEDS: Heparin 5000 UNITS/ML 1 mL VIAL SUBCUT SCH ×2 (05:59→13:01)
[2020-07-01] MEDS: Albuterol HFA INHALER 8 gm MDI INH PRN ×2 (13:00→23:01)
[2020-07-01] MEDS: cefTRIAXone 2 GM ADDV.VIAL 2 GM in NS 0.9% 100 ml BAG 100 ML IV SCH (16:20)
[2020-07-01] MEDS: Enoxaparin 80 MG/0.8 ML SYR SUBCUT SCH (17:36)
[2020-07-01] MEDS ORDERED: Remdesivir 5 MG/ML LIQ IV Vial 200 MG in NS 0.9% 250 ml 210 ML IV ONE (19:20)
[2020-07-02] MEDS: Insulin GLARGINE 100 un/ml 10 ml VIAL SUBCUT SCH ×2 (00:18→23:20)
[2020-07-02] MEDS: Albuterol HFA INHALER 8 gm MDI INH PRN (04:36)
[2020-07-02] MEDS: Dexamethasone IV 4 MG/ML VIAL 1 ml VIAL IV SLOW PU SCH (05:08)
[2020-07-02] MEDS: Enoxaparin 80 MG/0.8 ML SYR SUBCUT SCH ×2 (05:09→17:32)
[2020-07-02] MEDS: DOXYcycline 100 MG in NS 0.9% 250 ml 250 ML IVPB SCH ×2 (05:11→17:33)
[2020-07-02 09:34] LABS: ABS Lymphocytes 0.6 10^3/ul (1.0-4.8); ABS Monocytes 0.6 10^3/ul (0-0.8); ABS Neutrophils 9.1 10^3/ul (1.5-7.7); Hematocrit 42 % (42-52); Hemoglobin 13.4 g/dL (14.0-18.0); Lymphocyte % 5.6 %; Mean Corpuscular HGB Conc 32 g/dL (31-36); Mean Corpuscular Hemoglobin 26 pg (27-31); Mean Corpuscular Volume 83 fL (80-94); Mean Platelet Volume 8.2 fL (7.4-10.4); Platelet Count 254 10^3/uL (150-450); Red Blood Count 5.07 10^6 /uL (4.18-5.48); Red Cell Distribution Width 14 % (10-15); White Blood Count 10.3 10^3/uL (3.5-10.8)
[2020-07-02 09:41] LABS: Albumin 4.2 g/dL (3.2-5.2); Calcium 9.6 mg/dL (8.6-10.3); Magnesium 1.9 mg/dL (1.9-2.7); Potassium 4.3 mmol/L (3.5-5.0); Total Bilirubin 0.3 mg/dL (0.2-1.0)
[2020-07-02 09:47] LABS: Albumin/Globulin Ratio 1.6 (1-3); EGFR African American 111.4 (>60); EGFR Non-African American 92.1 (>60); Globulin 2.7 g/dL (2-4); Total Protein 6.9 g/dL (6.4-8.9)
[2020-07-02] MEDS ORDERED: Furosemide 40 mg/4 ml IV VIAL IV ONE (13:15)
[2020-07-02] MEDS: cefTRIAXone 2 GM ADDV.VIAL 2 GM in NS 0.9% 100 ml BAG 100 ML IV SCH (17:33)
[2020-07-02] MEDS: Isosorbide Mononit ER 30mg TAB PO SCH (17:34)
[2020-07-02] MEDS: Remdesivir 100 mg Q24H MAINTENANCE DOSING (LIQ Vial) IV SCH (23:19)
[2020-07-03] MEDS: DOXYcycline 100 MG in NS 0.9% 250 ml 250 ML IVPB SCH ×2 (03:38→17:27)
[2020-07-03] MEDS: Dexamethasone IV 4 MG/ML VIAL 1 ml VIAL IV SLOW PU SCH (06:23)
[2020-07-03] MEDS: Enoxaparin 80 MG/0.8 ML SYR SUBCUT SCH ×2 (06:25→17:27)
[2020-07-03 07:49] LABS: ABS Monocytes 0.7 10^3/ul (0-0.8); Eosinophil % 0.1 %; Hematocrit 40 % (42-52); Hemoglobin 12.9 g/dL (14.0-18.0); Lymphocyte % 11.1 %; Mean Corpuscular HGB Conc 32 g/dL (31-36); Mean Corpuscular Hemoglobin 26 pg (27-31); Mean Corpuscular Volume 83 fL (80-94); Mean Platelet Volume 7.6 fL (7.4-10.4); Nucleated Red Blood Cells % 0.1; Platelet Count 241 10^3/uL (150-450); Red Blood Count 4.88 10^6 /uL (4.18-5.48); Red Cell Distribution Width 14 % (10-15); White Blood Count 8.7 10^3/uL (3.5-10.8)
[2020-07-03 08:15] LABS: Albumin/Globulin Ratio 1.5 (1-3); Calcium 9.1 mg/dL (8.6-10.3); EGFR African American 108.4 (>60); EGFR Non-African American 89.6 (>60); Globulin 2.7 g/dL (2-4); Potassium 3.8 mmol/L (3.5-5.0); Total Bilirubin 0.3 mg/dL (0.2-1.0); Total Protein 6.7 g/dL (6.4-8.9)
[2020-07-03] MEDS: Isosorbide Mononit ER 30mg TAB PO SCH (08:39)
[2020-07-03] MEDS: Albuterol HFA INHALER 8 gm MDI INH PRN (08:48)
[2020-07-03] MEDS ORDERED: Perflutren Lipid Microsphere 3 ML VIAL ONE (13:19)
[2020-07-03] MEDS: cefTRIAXone 2 GM ADDV.VIAL 2 GM in NS 0.9% 100 ml BAG 100 ML IV SCH (16:00)
[2020-07-03] MEDS ORDERED: Furosemide 20 mg/2 ml IV VIAL IV SLOW PU ONE (19:32)
[2020-07-03] MEDS: Insulin GLARGINE 100 un/ml 10 ml VIAL SUBCUT SCH (21:55)
[2020-07-03] MEDS: Remdesivir 100 mg Q24H MAINTENANCE DOSING (LIQ Vial) IV SCH (22:08)
[2020-07-04] MEDS: DOXYcycline 100 MG in NS 0.9% 250 ml 250 ML IVPB SCH (04:01)
[2020-07-04] MEDS: Enoxaparin 80 MG/0.8 ML SYR SUBCUT SCH ×2 (06:09→17:20)
[2020-07-04] MEDS: Dexamethasone IV 4 MG/ML VIAL 1 ml VIAL IV SLOW PU SCH (06:10)
[2020-07-04 06:14] LABS: ABS Monocytes 0.8 10^3/ul (0-0.8); ABS Neutrophils 5.8 10^3/ul (1.5-7.7); Hematocrit 41 % (42-52); Hemoglobin 13.2 g/dL (14.0-18.0); Lymphocyte % 13.1 %; Mean Corpuscular HGB Conc 32 g/dL (31-36); Mean Corpuscular Hemoglobin 27 pg (27-31); Mean Corpuscular Volume 83 fL (80-94); Mean Platelet Volume 7.7 fL (7.4-10.4); Platelet Count 234 10^3/uL (150-450); Red Blood Count 4.99 10^6 /uL (4.18-5.48); Red Cell Distribution Width 14 % (10-15); White Blood Count 7.6 10^3/uL (3.5-10.8)
[2020-07-04 06:31] LABS: Albumin 3.9 g/dL (3.2-5.2); Albumin/Globulin Ratio 1.3 (1-3); BUN/Creatinine Ratio 29.7 (8-20); Calcium 8.6 mg/dL (8.6-10.3); EGFR African American 125.5 (>60); EGFR Non-African American 103.7 (>60); Globulin 2.9 g/dL (2-4); Potassium 3.5 mmol/L (3.5-5.0); Total Bilirubin 0.4 mg/dL (0.2-1.0); Total Protein 6.8 g/dL (6.4-8.9)
[2020-07-04] MEDS: Isosorbide Mononit ER 30mg TAB PO SCH (08:10)
[2020-07-04] MEDS: Albuterol HFA INHALER 8 gm MDI INH PRN (08:16)
[2020-07-04] MEDS: Insulin GLARGINE 100 un/ml 10 ml VIAL SUBCUT SCH (19:58)
[2020-07-04] MEDS: Remdesivir 100 mg Q24H MAINTENANCE DOSING (LIQ Vial) IV SCH (19:58)
[2020-07-04] MEDS ORDERED: hydrALAZINE 20 mg/ml 1 ML Vial IV IV SLOW PU PRN (20:50)
[2020-07-05] MEDS: Enoxaparin 80 MG/0.8 ML SYR SUBCUT SCH ×2 (06:02→17:36)
[2020-07-05] MEDS: Dexamethasone IV 4 MG/ML VIAL 1 ml VIAL IV SLOW PU SCH (06:03)
[2020-07-05 08:01] LABS: ABS Lymphocytes 0.9 10^3/ul (1.0-4.8); ABS Monocytes 0.6 10^3/ul (0-0.8); ABS Neutrophils 6.9 10^3/ul (1.5-7.7); Eosinophil % 0.2 %; Hematocrit 43 % (42-52); Hemoglobin 13.7 g/dL (14.0-18.0); Lymphocyte % 10.2 %; Mean Corpuscular HGB Conc 32 g/dL (31-36); Mean Corpuscular Hemoglobin 27 pg (27-31); Mean Corpuscular Volume 83 fL (80-94); Mean Platelet Volume 7.8 fL (7.4-10.4); Nucleated Red Blood Cells % 0.1; Platelet Count 212 10^3/uL (150-450); Red Blood Count 5.16 10^6 /uL (4.18-5.48); Red Cell Distribution Width 14 % (10-15); White Blood Count 8.3 10^3/uL (3.5-10.8)
[2020-07-05] MEDS: Isosorbide Mononit ER 30mg TAB PO SCH (08:23)
[2020-07-05] MEDS: Albuterol HFA INHALER 8 gm MDI INH PRN (08:31)
[2020-07-05 08:32] LABS: Albumin 3.9 g/dL (3.2-5.2); Albumin/Globulin Ratio 1.4 (1-3); BUN/Creatinine Ratio 32.8 (8-20); EGFR African American 140.7 (>60); EGFR Non-African American 116.3 (>60); Globulin 2.7 g/dL (2-4); Potassium 3.6 mmol/L (3.5-5.0); Total Bilirubin 0.5 mg/dL (0.2-1.0); Total Protein 6.6 g/dL (6.4-8.9)
[2020-07-05] MEDS ORDERED: Insulin GLARGINE 100 un/ml 10 ml VIAL SUBCUT SCH (21:00)
[2020-07-05] MEDS: Remdesivir 100 mg Q24H MAINTENANCE DOSING (LIQ Vial) IV SCH (21:50)
[2020-07-06 05:11] LABS: ABS Lymphocytes 0.8 10^3/ul (1.0-4.8); ABS Monocytes 0.8 10^3/ul (0-0.8); ABS Neutrophils 6.4 10^3/ul (1.5-7.7); Eosinophil % 0.1 %; Hematocrit 41 % (42-52); Hemoglobin 13.2 g/dL (14.0-18.0); Lymphocyte % 10.4 %; Mean Corpuscular HGB Conc 32 g/dL (31-36); Mean Corpuscular Hemoglobin 27 pg (27-31); Mean Corpuscular Volume 83 fL (80-94); Mean Platelet Volume 7.8 fL (7.4-10.4); Platelet Count 205 10^3/uL (150-450); Red Blood Count 4.97 10^6 /uL (4.18-5.48); Red Cell Distribution Width 14 % (10-15); White Blood Count 8.1 10^3/uL (3.5-10.8)
[2020-07-06 05:32] LABS: Albumin 3.5 g/dL (3.2-5.2); Albumin/Globulin Ratio 1.4 (1-3); BUN/Creatinine Ratio 33.3 (8-20); Calcium 8.7 mg/dL (8.6-10.3); EGFR African American 129.5 (>60); Globulin 2.5 g/dL (2-4); Potassium 3.6 mmol/L (3.5-5.0); Total Bilirubin 0.4 mg/dL (0.2-1.0)
[2020-07-06] MEDS: Enoxaparin 80 MG/0.8 ML SYR SUBCUT SCH ×2 (06:09→18:26)
[2020-07-06] MEDS: Isosorbide Mononit ER 30mg TAB PO SCH (08:30)
[2020-07-06] MEDS: Albuterol HFA INHALER 8 gm MDI INH PRN (12:23)
[2020-07-06] MEDS: Insulin GLARGINE 100 un/ml 10 ml VIAL SUBCUT SCH (22:29)
[2020-07-07] MEDS: Enoxaparin 80 MG/0.8 ML SYR SUBCUT SCH (05:43)
[2020-07-07 07:29] LABS: BUN/Creatinine Ratio 34.7 (8-20); EGFR African American 123.5 (>60); EGFR Non-African American 102.1 (>60); Potassium 3.7 mmol/L (3.5-5.0)
[2020-07-07] MEDS: Isosorbide Mononit ER 30mg TAB PO SCH (09:37)
[2020-07-07] MEDS: Insulin GLARGINE 100 un/ml 10 ml VIAL SUBCUT SCH (21:21)
[2020-07-07] MEDS: Enoxaparin 40 MG/0.4 ML SYR SUBCUT SCH (21:23)
[2020-07-08 08:59] LABS: BUN/Creatinine Ratio 35.1 (8-20); Blood Urea Nitrogen 27 mg/dL (6-24); Calcium 8.9 mg/dL (8.6-10.3); Chloride 98 mmol/L (101-111); EGFR African American 119.8 (>60); Glucose 145 mg/dL (70-100); Sodium 142 mmol/L (135-145)
[2020-07-08 09:21] LABS: CO2 Carbon Dioxide 38 mmol/L (22-32)
[2020-07-08] MEDS: Isosorbide Mononit ER 30mg TAB PO SCH (10:05)
[2020-07-08 10:53] LABS: Anion Gap 6 mmol/L (2-11)
[2020-07-08] MEDS: Insulin GLARGINE 100 un/ml 10 ml VIAL SUBCUT SCH (23:20)
[2020-07-08] MEDS: Enoxaparin 40 MG/0.4 ML SYR SUBCUT SCH (23:22)
[2020-07-09] MEDS: Albuterol HFA INHALER 8 gm MDI INH PRN (03:52)
[2020-07-09 06:28] LABS: BUN/Creatinine Ratio 38.8 (8-20); Calcium 8.9 mg/dL (8.6-10.3); EGFR African American 114.7 (>60); EGFR Non-African American 94.8 (>60); Potassium 3.8 mmol/L (3.5-5.0)
[2020-07-09] MEDS: Isosorbide Mononit ER 30mg TAB PO SCH (09:26)
[2020-07-09] MEDS: Insulin GLARGINE 100 un/ml 10 ml VIAL SUBCUT SCH (21:12)
[2020-07-09] MEDS: Enoxaparin 40 MG/0.4 ML SYR SUBCUT SCH (21:12)
[2020-07-10] MEDS: Isosorbide Mononit ER 30mg TAB PO SCH (09:39)
[2020-07-10 09:59] LABS: BUN/Creatinine Ratio 34.2 (8-20); Calcium 8.6 mg/dL (8.6-10.3); EGFR African American 116.3 (>60); EGFR Non-African American 96.1 (>60); Potassium 3.6 mmol/L (3.5-5.0)
[2020-07-10] MEDS: Enoxaparin 40 MG/0.4 ML SYR SUBCUT SCH (20:37)
[2020-07-10] MEDS: Insulin GLARGINE 100 un/ml 10 ml VIAL SUBCUT SCH (20:38)
[2020-07-11] MEDS: Isosorbide Mononit ER 30mg TAB PO SCH (10:37)
[2020-07-11 12:11] VITALS: BP 116/91
== END 2020-07-11 12:55 | disposition home or self-care (01) | DRG 177 ==
LOC: ED 11:49 → ICU 14:07 → MED 06-30 13:53
PROVIDERS: ADMIT Internal Medicine; ATTEND Internal Medicine

== ENCOUNTER 2020-09-07 18:17 | Inpatient (IN) ==
[2020-09-07] MEDS ORDERED: Albuterol HFA INHALER 8 gm MDI INH ONE (19:59)
[2020-09-07 20:38] LABS: ABS Basophils 0.1 10^3/ul (0-0.2); ABS Eosinophils 0.4 10^3/ul (0-0.6); ABS Lymphocytes 1.3 10^3/ul (1.0-4.8); ABS Monocytes 0.8 10^3/ul (0-0.8); ABS Neutrophils 7.9 10^3/ul (1.5-7.7); Eosinophil % 3.7 %; Hematocrit 35 % (42-52); Hemoglobin 11.8 g/dL (14.0-18.0); Lymphocyte % 12.1 %; Mean Corpuscular HGB Conc 34 g/dL (31-36); Mean Corpuscular Hemoglobin 27 pg (27-31); Mean Corpuscular Volume 81 fL (80-94); Mean Platelet Volume 7.7 fL (7.4-10.4); Platelet Count 274 10^3/uL (150-450); Red Blood Count 4.32 10^6 /uL (4.18-5.48); Red Cell Distribution Width 14 % (10-15); White Blood Count 10.4 10^3/uL (3.5-10.8)
[2020-09-07 20:48] LABS: INR 1.1 (0.82-1.09)
[2020-09-07 20:56] LABS: Albumin/Globulin Ratio 1.3 (1-3); C Reactive Protein 34.53 mg/L (<8.01); Calcium 8.9 mg/dL (8.6-10.3); EGFR African American 70.5 (>60); EGFR Non-African American 58.2 (>60); Globulin 3.1 g/dL (2-4); Potassium 4.8 mmol/L (3.5-5.0); Total Bilirubin 0.4 mg/dL (0.2-1.0); Total Protein 7.1 g/dL (6.4-8.9)
[2020-09-07] MEDS ORDERED: Piperacillin/Tazobac ADVAN 3.375 GM in NS 0.9% 100 ml BAG 100 ML IVPB ONE (21:41)
[2020-09-07] MEDS ORDERED: methylPREDNISolone 125 mg 2 ML VIAL IV ONE (22:55)
[2020-09-07] MEDS ORDERED: Ondansetron 4 mg VIAL 2 MG/ML 2 ml VIAL IV PRN (23:52)
[2020-09-08] MEDS ORDERED: Albuterol/Ipratropium NEB.SOL (2.5/0.5 MG) 3 ML NEB.SOLN INH PRN (00:04)
[2020-09-08] MEDS ORDERED: Dextrose 50% Syringe 50 ml 25 GM/50 ML SYRINGE IV PUSH PRN (00:20)
[2020-09-08] MEDS ORDERED: Budesonide/Formote 160/4.5(NF) MDI INH SCH (01:00)
[2020-09-08] MEDS ORDERED: Zosyn per Pharmacy NOTE FOLLOW UP SCH (01:00)
[2020-09-08] MEDS: methylPREDNISolone SOD 40 mg/ml 1 ml VIAL IV SCH ×3 (01:20→21:32)
[2020-09-08 01:36] LABS: Urine Appearance Clear; Urine Bilirubin Negative (Negative); Urine Blood Negative (Negative); Urine Color Yellow; Urine Glucose 3+(>=500 mg/dL) (Negative); Urine Ketones Negative (Negative); Urine Nitrite Negative (Negative); Urine Protein 1+(30 mg/dL) (Negative); Urine Urobilinogen Negative (Negative)
[2020-09-08 01:43] LABS: Influenza A Molecular Negative (Negative); Influenza B Molecular Negative (Negative); Urine Bacteria Absent (Absent); Urine Granular Casts Present (Absent); Urine Red Blood Cell Trace(0-2/hpf) (Absent); Urine Squamous Epithelial Cell Present (Absent); Urine White Blood Cell Trace(0-5/hpf) (Absent)
[2020-09-08 02:10] LABS: Urine Creatinine Concentration 133.81 mg/dL
[2020-09-08] MEDS: Albuterol 2.5mg/3 ml (0.083%) NEB.SOLN INH SCH ×5 (02:40→21:06)
[2020-09-08] MEDS: ZOSYN 3.375 GM Q8H per EXTENDED INFUSION IV SCH ×3 (02:40→17:40)
[2020-09-08] MEDS: Heparin 5000 UNITS/ML 1 mL VIAL SUBCUT SCH ×3 (05:20→21:37)
[2020-09-08 06:53] LABS: ABS Lymphocytes 0.6 10^3/ul (1.0-4.8); ABS Monocytes 0.1 10^3/ul (0-0.8); ABS Neutrophils 7.6 10^3/ul (1.5-7.7); Eosinophil % 0.2 %; Hematocrit 39 % (42-52); Lymphocyte % 7.6 %; Mean Corpuscular HGB Conc 33 g/dL (31-36); Mean Corpuscular Hemoglobin 27 pg (27-31); Mean Corpuscular Volume 81 fL (80-94); Mean Platelet Volume 7.8 fL (7.4-10.4); Platelet Count 286 10^3/uL (150-450); Red Blood Count 4.87 10^6 /uL (4.18-5.48); Red Cell Distribution Width 14 % (10-15); White Blood Count 8.4 10^3/uL (3.5-10.8)
[2020-09-08] MEDS: Mometasone/Formoter 200/5 MDI INH SCH ×2 (07:11→21:08)
[2020-09-08] MEDS: SPIRIVA Respimat (tiotropium) 2.5 mcg/inh Inhaler INH SCH (07:12)
[2020-09-08 07:27] LABS: BUN/Creatinine Ratio 18.7 (8-20); Calcium 9.2 mg/dL (8.6-10.3); EGFR Non-African American 67.7 (>60)
[2020-09-08 07:47] LABS: Potassium 5.1 mmol/L (3.5-5.0)
[2020-09-08] MEDS: Isosorbide Mononit ER 30mg TAB PO SCH (08:56)
[2020-09-08] MEDS: Cholecalciferol (VIT D3) 1,000 unit TAB PO SCH (08:56)
[2020-09-08] MEDS ORDERED: Tiotropium Brom/Olodaterol MDI INH SCH (09:00)
[2020-09-08] MEDS ORDERED: Furosemide 20 mg/2 ml IV VIAL IV SLOW PU ONE (15:52)
[2020-09-09] MEDS: Albuterol 2.5mg/3 ml (0.083%) NEB.SOLN INH SCH ×4 (01:00→19:48)
[2020-09-09] MEDS: ZOSYN 3.375 GM Q8H per EXTENDED INFUSION IV SCH ×3 (02:13→18:15)
[2020-09-09 05:01] LABS: ABS Lymphocytes 0.6 10^3/ul (1.0-4.8); ABS Monocytes 0.3 10^3/ul (0-0.8); ABS Neutrophils 6.8 10^3/ul (1.5-7.7); Hematocrit 34 % (42-52); Hemoglobin 11.1 g/dL (14.0-18.0); Lymphocyte % 8.2 %; Mean Corpuscular HGB Conc 33 g/dL (31-36); Mean Corpuscular Hemoglobin 26 pg (27-31); Mean Corpuscular Volume 80 fL (80-94); Platelet Count 278 10^3/uL (150-450); Red Cell Distribution Width 14 % (10-15); White Blood Count 7.8 10^3/uL (3.5-10.8)
[2020-09-09 05:16] LABS: BUN/Creatinine Ratio 24.4 (8-20); C Reactive Protein 20.78 mg/L (<8.01); Calcium 8.8 mg/dL (8.6-10.3); EGFR African American 100.1 (>60); EGFR Non-African American 82.7 (>60); Potassium 4.2 mmol/L (3.5-5.0)
[2020-09-09] MEDS: Heparin 5000 UNITS/ML 1 mL VIAL SUBCUT SCH ×3 (05:19→20:38)
[2020-09-09] MEDS: methylPREDNISolone SOD 40 mg/ml 1 ml VIAL IV SCH ×3 (05:19→20:32)
[2020-09-09] MEDS: Mometasone/Formoter 200/5 MDI INH SCH ×2 (07:15→19:49)
[2020-09-09] MEDS: SPIRIVA Respimat (tiotropium) 2.5 mcg/inh Inhaler INH SCH (07:16)
[2020-09-09] MEDS: Furosemide 20 mg/2 ml IV VIAL IV SLOW PU SCH (09:25)
[2020-09-09] MEDS: Cholecalciferol (VIT D3) 1,000 unit TAB PO SCH (09:26)
[2020-09-09] MEDS: Isosorbide Mononit ER 30mg TAB PO SCH (09:26)
[2020-09-09] MEDS: Insulin GLARGINE 100 un/ml 10 ml VIAL SUBCUT SCH (20:37)
[2020-09-10] MEDS: Albuterol 2.5mg/3 ml (0.083%) NEB.SOLN INH SCH ×2 (00:48→08:00)
[2020-09-10] MEDS: Heparin 5000 UNITS/ML 1 mL VIAL SUBCUT SCH ×3 (05:22→21:23)
[2020-09-10] MEDS: Mometasone/Formoter 200/5 MDI INH SCH ×2 (08:00→19:33)
[2020-09-10] MEDS: SPIRIVA Respimat (tiotropium) 2.5 mcg/inh Inhaler INH SCH (08:01)
[2020-09-10] MEDS ORDERED: Albuterol 2.5mg/3 ml (0.083%) NEB.SOLN INH PRN (08:06)
[2020-09-10] MEDS: cefTRIAXone 1 gm/50 mL NS BAG 1 GM/50 ML BAG IVPB SCH (08:45)
[2020-09-10] MEDS: Furosemide 20 mg/2 ml IV VIAL IV SLOW PU SCH (08:45)
[2020-09-10] MEDS: Isosorbide Mononit ER 30mg TAB PO SCH (08:50)
[2020-09-10] MEDS: Cholecalciferol (VIT D3) 1,000 unit TAB PO SCH (08:50)
[2020-09-10] MEDS ORDERED: Furosemide 40 mg/4 ml IV VIAL IV ONE (15:11)
[2020-09-10 18:08] LABS: Glucose Confirmatory 509 mg/dL (70-100)
[2020-09-10] MEDS: Insulin GLARGINE 100 un/ml 10 ml VIAL SUBCUT SCH (21:28)
[2020-09-11] MEDS: Heparin 5000 UNITS/ML 1 mL VIAL SUBCUT SCH (05:39)
[2020-09-11] MEDS: Mometasone/Formoter 200/5 MDI INH SCH (07:42)
[2020-09-11 08:13] LABS: Hematocrit 41 % (42-52); Hemoglobin 13.5 g/dL (14.0-18.0); Mean Corpuscular HGB Conc 33 g/dL (31-36); Mean Corpuscular Hemoglobin 26 pg (27-31); Mean Corpuscular Volume 80 fL (80-94); Mean Platelet Volume 7.7 fL (7.4-10.4); Platelet Count 303 10^3/uL (150-450); Red Blood Count 5.11 10^6 /uL (4.18-5.48); Red Cell Distribution Width 14 % (10-15)
[2020-09-11 08:31] LABS: Calcium 8.8 mg/dL (8.6-10.3); EGFR African American 114.7 (>60); EGFR Non-African American 94.8 (>60); Potassium 3.4 mmol/L (3.5-5.0)
[2020-09-11] MEDS ORDERED: CMCS: SitaGLIPtin 25mg TAB (NF) 25 MG TAB PO SCH (09:00)
[2020-09-11] MEDS: Isosorbide Mononit ER 30mg TAB PO SCH (09:01)
[2020-09-11] MEDS: Cholecalciferol (VIT D3) 1,000 unit TAB PO SCH (09:02)
[2020-09-11] MEDS: cefTRIAXone 1 gm/50 mL NS BAG 1 GM/50 ML BAG IVPB SCH ×2 (09:12→09:52)
[2020-09-11] MEDS ORDERED: Potassium Chlor 20 meq TAB.ER PO ONE (09:32)
[2020-09-11] MEDS: SPIRIVA Respimat (tiotropium) 2.5 mcg/inh Inhaler INH SCH (10:42)
[2020-09-11 12:33] VITALS: BP 149/91
== END 2020-09-11 14:25 | disposition home or self-care (01) | DRG 190 ==
LOC: ED 18:17 → MED 23:52
PROVIDERS: ADMIT Internal Medicine; ATTEND Hospitalist

== ENCOUNTER 2020-09-25 08:25 | Observation (INO) ==
[2020-09-25 09:47] LABS: ABS Eosinophils 0.5 10^3/ul (0-0.6); ABS Lymphocytes 0.9 10^3/ul (1.0-4.8); ABS Monocytes 0.6 10^3/ul (0-0.8); ABS Neutrophils 6.7 10^3/ul (1.5-7.7); Eosinophil % 5.3 %; Hematocrit 37 % (42-52); Hemoglobin 12.4 g/dL (14.0-18.0); Lymphocyte % 10.3 %; Mean Corpuscular HGB Conc 33 g/dL (31-36); Mean Corpuscular Hemoglobin 27 pg (27-31); Mean Corpuscular Volume 79 fL (80-94); Mean Platelet Volume 7.9 fL (7.4-10.4); Platelet Count 242 10^3/uL (150-450); Red Blood Count 4.67 10^6 /uL (4.18-5.48); Red Cell Distribution Width 14 % (10-15); White Blood Count 8.7 10^3/uL (3.5-10.8)
[2020-09-25 09:59] LABS: Activated Partial Thrombo Time 27.7 seconds (26.0-38.0); INR 1.08 (0.82-1.09)
[2020-09-25 10:02] LABS: Influenza A Molecular Negative (Negative); Influenza B Molecular Negative (Negative)
[2020-09-25 10:04] LABS: Albumin/Globulin Ratio 1.3 (1-3); BUN/Creatinine Ratio 17.3 (8-20); C Reactive Protein 97.34 mg/L (<8.01); Calcium 9.1 mg/dL (8.6-10.3); EGFR Non-African American 93.4 (>60); Globulin 3.1 g/dL (2-4); Potassium 4.2 mmol/L (3.5-5.0); Total Bilirubin 0.5 mg/dL (0.2-1.0); Total Protein 7.1 g/dL (6.4-8.9)
[2020-09-25 10:09] LABS: CKMB ng/mL 1.7 ng/mL (0.6-6.3)
[2020-09-25 12:03] LABS: Troponin I 0.01 ng/mL (<0.03)
[2020-09-25] MEDS ORDERED: methylPREDNISolone 125 mg 2 ML VIAL IV ONE (12:53)
[2020-09-25] MEDS ORDERED: Ondansetron ODT 4 mg TAB 4 MG TAB PO PRN (13:07)
[2020-09-25] MEDS ORDERED: Albuterol/Ipratropium NEB.SOL (2.5/0.5 MG) 3 ML NEB.SOLN INH PRN (13:07)
[2020-09-25] MEDS ORDERED: Dextrose 50% Syringe 50 ml 25 GM/50 ML SYRINGE IV PUSH PRN (13:12)
[2020-09-25] MEDS: Albuterol/Ipratropium NEB.SOL (2.5/0.5 MG) 3 ML NEB.SOLN INH SCH ×4 (13:16→19:53)
[2020-09-25] MEDS: Isosorbide Mononit ER 30mg TAB PO SCH (16:06)
[2020-09-25] MEDS: Enoxaparin 40 MG/0.4 ML SYR SUBCUT SCH (16:06)
[2020-09-25] MEDS: Mometasone/Formoter 200/5 MDI INH SCH (20:23)
[2020-09-26] MEDS: Albuterol/Ipratropium NEB.SOL (2.5/0.5 MG) 3 ML NEB.SOLN INH SCH ×6 (01:58→19:13)
[2020-09-26 06:28] LABS: ABS Lymphocytes 0.6 10^3/ul (1.0-4.8); ABS Monocytes 0.2 10^3/ul (0-0.8); ABS Neutrophils 4.5 10^3/ul (1.5-7.7); Eosinophil % 0.1 %; Hematocrit 34 % (42-52); Hemoglobin 11.4 g/dL (14.0-18.0); Lymphocyte % 11.2 %; Mean Corpuscular HGB Conc 34 g/dL (31-36); Mean Corpuscular Hemoglobin 27 pg (27-31); Mean Corpuscular Volume 79 fL (80-94); Mean Platelet Volume 8.2 fL (7.4-10.4); Nucleated Red Blood Cells % 0.1; Platelet Count 255 10^3/uL (150-450); Red Cell Distribution Width 15 % (10-15); White Blood Count 5.2 10^3/uL (3.5-10.8)
[2020-09-26 06:42] LABS: Calcium 8.7 mg/dL (8.6-10.3); EGFR African American 116.3 (>60); EGFR Non-African American 96.1 (>60); Potassium 4.5 mmol/L (3.5-5.0)
[2020-09-26] MEDS: Mometasone/Formoter 200/5 MDI INH SCH ×2 (07:13→19:15)
[2020-09-26] MEDS: SPIRIVA Respimat (tiotropium) 2.5 mcg/inh Inhaler INH SCH (07:14)
[2020-09-26] MEDS: Isosorbide Mononit ER 30mg TAB PO SCH (09:42)
[2020-09-26] MEDS: DOXYcycline 100 MG in NS 0.9% 250 ml 250 ML IVPB SCH ×2 (09:46→20:32)
[2020-09-26] MEDS: Insulin GLARGINE 100 un/ml 10 ml VIAL SUBCUT SCH (10:15)
[2020-09-26] MEDS: Enoxaparin 40 MG/0.4 ML SYR SUBCUT SCH (12:10)
[2020-09-26] MEDS ORDERED: Albuterol/Ipratropium NEB.SOL (2.5/0.5 MG) 3 ML NEB.SOLN INH ONE (13:15)
[2020-09-27] MEDS: Albuterol/Ipratropium NEB.SOL (2.5/0.5 MG) 3 ML NEB.SOLN INH SCH ×2 (01:30→07:06)
[2020-09-27] MEDS: Mometasone/Formoter 200/5 MDI INH SCH (07:14)
[2020-09-27] MEDS: SPIRIVA Respimat (tiotropium) 2.5 mcg/inh Inhaler INH SCH (07:15)
[2020-09-27] MEDS: Insulin GLARGINE 100 un/ml 10 ml VIAL SUBCUT SCH (08:22)
[2020-09-27] MEDS: DOXYcycline 100 MG in NS 0.9% 250 ml 250 ML IVPB SCH (09:54)
[2020-09-27] MEDS: Isosorbide Mononit ER 30mg TAB PO SCH (09:55)
[2020-09-27 11:45] VITALS: BP 149/90
== END 2020-09-27 13:00 | disposition home or self-care (01) ==
LOC: ED 08:25 → MED 08:25
PROVIDERS: ADMIT Hospitalist; ATTEND Internal Medicine

== ENCOUNTER 2020-10-16 11:36 | Inpatient (IN) ==
[2020-10-16] MEDS ORDERED: NS 0.9% 1000 ml BAG 1,000 ML IV ONE ×3 (11:40→13:45)
[2020-10-16 11:50] LABS: ABS Eosinophils 0.2 10^3/ul (0-0.6); ABS Lymphocytes 1.2 10^3/ul (1.0-4.8); ABS Monocytes 0.7 10^3/ul (0-0.8); ABS Neutrophils 13.4 10^3/ul (1.5-7.7); Eosinophil % 1.3 %; Hematocrit 39 % (42-52); Hemoglobin 12.5 g/dL (14.0-18.0); Mean Corpuscular HGB Conc 32 g/dL (31-36); Mean Corpuscular Hemoglobin 26 pg (27-31); Mean Corpuscular Volume 81 fL (80-94); Mean Platelet Volume 8.1 fL (7.4-10.4); Nucleated Red Blood Cells % 0.1; Platelet Count 268 10^3/uL (150-450); Red Blood Count 4.85 10^6 /uL (4.18-5.48); Red Cell Distribution Width 14 % (10-15); White Blood Count 15.5 10^3/uL (3.5-10.8)
[2020-10-16] MEDS ORDERED: Atropine 0.1 MG/ML 10 ml SYR (1 mg) IV PUSH ONE (11:50)
[2020-10-16] MEDS ORDERED: Atropine 0.1 MG/ML 10 ml SYR (1 mg) ONE (11:50)
[2020-10-16 12:11] LABS: ALT 15 U/L (7-52); AST 14 U/L (13-39); Albumin 3.8 g/dL (3.2-5.2); Albumin/Globulin Ratio 1.5 (1-3); Alkaline Phosphatase 51 U/L (34-104); BUN/Creatinine Ratio 20.7 (8-20); Blood Urea Nitrogen 24 mg/dL (6-24); CO2 Carbon Dioxide 30 mmol/L (22-32); Chloride 98 mmol/L (101-111); EGFR African American 74.7 (>60); EGFR Non-African American 61.7 (>60); Globulin 2.6 g/dL (2-4); Glucose 381 mg/dL (70-100); Sodium 137 mmol/L (135-145); Total Protein 6.4 g/dL (6.4-8.9)
[2020-10-16 12:33] LABS: Anion Gap 9 mmol/L (2-11); Potassium 5.5 mmol/L (3.5-5.0)
[2020-10-16] MEDS ORDERED: Piperacillin/Tazobac ADVAN 3.375 GM in NS 0.9% 100 ml BAG 100 ML IV ONE (12:37)
[2020-10-16 12:59] LABS: TSH Ultra Thyroid Stim Horm 1.93 mcIU/mL (0.34-5.60)
[2020-10-16] MEDS ORDERED: Insulin Infusion 100unit/100mL 100 UNIT/100 ML BAG IV ONE (13:00)
[2020-10-16 13:01] LABS: Free T4 1.36 ng/dL (0.61-1.12)
[2020-10-16 13:52] LABS: Digoxin < 0.3 ng/ml (0.8-2.0)
[2020-10-16] MEDS ORDERED: Calcium Gluconate 3 GM in NS 0.9% 250 ml 250 ML IVPB ONE (13:55)
[2020-10-16] MEDS ORDERED: Perflutren Lipid Microsphere 3 ML VIAL ONE (15:50)
[2020-10-16] MEDS ORDERED: Iodixanol (CONTRAST) 320 MG/ML 100 ML SDV IV ONE (16:53)
[2020-10-16 16:58] LABS: Troponin I 0.01 ng/mL (<0.03)
[2020-10-16] MEDS ORDERED: Albuterol/Ipratropium NEB.SOL (2.5/0.5 MG) 3 ML NEB.SOLN INH PRN (18:15)
[2020-10-16] MEDS ORDERED: Dextrose 50% Syringe 50 ml 25 GM/50 ML SYRINGE IV PUSH PRN (18:30)
[2020-10-16 19:25] LABS: Albumin 3.7 g/dL (3.2-5.2); Albumin/Globulin Ratio 1.5 (1-3); BUN/Creatinine Ratio 23.1 (8-20); Calcium 9.3 mg/dL (8.6-10.3); EGFR African American 71.1 (>60); EGFR Non-African American 58.8 (>60); Globulin 2.5 g/dL (2-4); Potassium 4.4 mmol/L (3.5-5.0); Total Bilirubin 0.5 mg/dL (0.2-1.0); Total Protein 6.2 g/dL (6.4-8.9)
[2020-10-16] MEDS: Heparin 5000 UNITS/ML 1 mL VIAL SUBCUT SCH (21:03)
[2020-10-16] MEDS: Insulin GLARGINE 100 un/ml 10 ml VIAL SUBCUT SCH (21:03)
[2020-10-17] MEDS ORDERED: Succinylcholine 200 mg VIAL 20 mg/ml 10 ml VIAL (200 mg) ONE (04:13)
[2020-10-17] MEDS ORDERED: Rocuronium 50 mg VIAL 10 mg/ml 5 ml VIAL (50 mg) ONE (04:14)
[2020-10-17] MEDS ORDERED: Propofol 10 mg/ml 100 ML BTL 100 ML ONE (04:17)
[2020-10-17] MEDS ORDERED: Etomidate 40 mg/20 ml (2 MG/ML) 20 ml VIAL (40 mg) ONE (04:21)
[2020-10-17] MEDS: Heparin 5000 UNITS/ML 1 mL VIAL SUBCUT SCH ×3 (04:59→20:59)
[2020-10-17] MEDS ORDERED: fentaNYL INFUSION 50 MCG/ML 2,500 MCG/50 ML BAG IV SCH (05:00)
[2020-10-17] MEDS ORDERED: Propofol 10 mg/ml 100 ML BTL 100 ML IV SCH ×2 (05:00→05:02)
[2020-10-17 05:19] LABS: Urine Appearance Clear; Urine Bilirubin Negative (Negative); Urine Blood 1+ (Negative); Urine Color Yellow; Urine Glucose 2+(150 mg/dL) (Negative); Urine Ketones Negative (Negative); Urine Nitrite Negative (Negative); Urine Protein 1+(30 mg/dL) (Negative); Urine Specific Gravity 1.023 (1.002-1.030); Urine Urobilinogen Negative (Negative)
[2020-10-17 05:26] LABS: Urine Bacteria Absent (Absent); Urine Granular Casts Present (Absent); Urine Red Blood Cell Trace(0-2/hpf) (Absent); Urine Squamous Epithelial Cell Present (Absent); Urine White Blood Cell Trace(0-5/hpf) (Absent)
[2020-10-17 05:37] LABS: ABS Eosinophils 0.1 10^3/ul (0-0.6); ABS Lymphocytes 0.9 10^3/ul (1.0-4.8); ABS Monocytes 0.6 10^3/ul (0-0.8); ABS Neutrophils 11.3 10^3/ul (1.5-7.7); Eosinophil % 1.1 %; Hematocrit 36 % (42-52); Hemoglobin 11.5 g/dL (14.0-18.0); Lymphocyte % 6.8 %; Mean Corpuscular HGB Conc 32 g/dL (31-36); Mean Corpuscular Hemoglobin 26 pg (27-31); Mean Corpuscular Volume 82 fL (80-94); Mean Platelet Volume 7.8 fL (7.4-10.4); Platelet Count 202 10^3/uL (150-450); Red Blood Count 4.47 10^6 /uL (4.18-5.48); Red Cell Distribution Width 14 % (10-15); White Blood Count 12.9 10^3/uL (3.5-10.8)
[2020-10-17 05:52] LABS: Calcium 8.3 mg/dL (8.6-10.3); EGFR African American 104.1 (>60); Magnesium 1.3 mg/dL (1.9-2.7); Phosphorus 4.6 mg/dL (2.5-5.0)
[2020-10-17] MEDS ORDERED: Midazolam 2 mg/2 ml VIAL 1 mg/ml 2 ml VIAL (2 mg) ONE (05:52)
[2020-10-17 05:56] LABS: Potassium 4.3 mmol/L (3.5-5.0)
[2020-10-17] MEDS ORDERED: Midazolam 2 mg/2 ml VIAL 1 mg/ml 2 ml VIAL (2 mg) IV SLOW PU ONE ×2 (06:00)
[2020-10-17] MEDS ORDERED: Magnesium Sulf 4 GM/100 ML IV 4,000 MG/100 ML BAG IVPB ONE (07:05)
[2020-10-17] MEDS ORDERED: Multivitamins ADULT w/MIN LIQ 15 ML UDC PO SCH (09:00)
[2020-10-17] MEDS: Chlorhexidine MOUTHWASH 0.12% 15 ML UDC SWISH SPIT SCH ×4 (09:35→23:21)
[2020-10-17] MEDS: Furosemide 20 mg/2 ml IV VIAL IV SLOW PU SCH (09:35)
[2020-10-17] MEDS: Pantoprazole VIAL 40 MG VIAL IV SCH (09:35)
[2020-10-17] MEDS: Multivitamins/Minerals TAB PO SCH (10:48)
[2020-10-17] MEDS: Propofol 10 mg/ml 100 ML BTL 100 ML IV SCH ×3 (11:45→23:20)
[2020-10-17] MEDS: Insulin GLARGINE 100 un/ml 10 ml VIAL SUBCUT SCH (20:56)
[2020-10-18] MEDS: Propofol 10 mg/ml 100 ML BTL 100 ML IV SCH ×2 (01:38→04:00)
[2020-10-18] MEDS: Nystatin TOP POWDER 15 GM BTL TOPICAL SCH ×3 (01:39→20:48)
[2020-10-18] MEDS: Heparin 5000 UNITS/ML 1 mL VIAL SUBCUT SCH ×3 (03:59→20:43)
[2020-10-18] MEDS: Chlorhexidine MOUTHWASH 0.12% 15 ML UDC SWISH SPIT SCH ×2 (03:59→08:11)
[2020-10-18 04:23] LABS: Hematocrit 35 % (42-52); Hemoglobin 11.8 g/dL (14.0-18.0); Mean Corpuscular HGB Conc 34 g/dL (31-36); Mean Corpuscular Hemoglobin 27 pg (27-31); Mean Corpuscular Volume 81 fL (80-94); Red Blood Count 4.34 10^6 /uL (4.18-5.48); Red Cell Distribution Width 14 % (10-15)
[2020-10-18 04:24] LABS: Nucleated Red Blood Cells % 0.6
[2020-10-18 05:12] LABS: Anion Gap 5 mmol/L (2-11); BUN/Creatinine Ratio 21.7 (8-20); Blood Urea Nitrogen 13 mg/dL (6-24); CO2 Carbon Dioxide 28 mmol/L (22-32); Calcium 7.1 mg/dL (8.6-10.3); Chloride 102 mmol/L (101-111); EGFR African American 159.8 (>60); EGFR Non-African American 132.1 (>60); Glucose 81 mg/dL (70-100); Phosphorus 1.9 mg/dL (2.5-5.0); Sodium 135 mmol/L (135-145)
[2020-10-18 05:43] LABS: Magnesium 1.9 mg/dL (1.9-2.7); Potassium Redraw 3.4 mmol/L (3.5-5.0)
[2020-10-18 05:53] LABS: Mean Platelet Volume 8.5 fL (7.4-10.4); Platelet Count 219 10^3/uL (150-450)
[2020-10-18] MEDS ORDERED: KCL 20 MEQ/100 ML IVPREMIX 20 MEQ/100 ML BAG IV ONE ×2 (07:15→08:20)
[2020-10-18] MEDS ORDERED: Potassium Chlor 20 meq TAB.ER PO ONE (07:15)
[2020-10-18] MEDS ORDERED: Magnesium Sulfate 2 gm BAG 2 GM/50 ML BAG IVPB ONE (07:16)
[2020-10-18 07:35] LABS: White Blood Count 9.2 10^3/uL (3.5-10.8)
[2020-10-18] MEDS ORDERED: Potassium Phosphate IV 15 MMOLE in NS 0.9% 250 ml 250 ML IVPB ONE (08:00)
[2020-10-18] MEDS: Furosemide 20 mg/2 ml IV VIAL IV SLOW PU SCH (08:02)
[2020-10-18] MEDS: Multivitamins/Minerals TAB PO SCH (08:04)
[2020-10-18] MEDS: Pantoprazole VIAL 40 MG VIAL IV SCH (10:11)
[2020-10-18] MEDS: SPIRIVA Respimat (tiotropium) 2.5 mcg/inh Inhaler INH SCH (15:19)
[2020-10-18 15:54] LABS: Calcium 8.3 mg/dL (8.6-10.3); EGFR African American 101.4 (>60); EGFR Non-African American 83.8 (>60); Potassium 4.3 mmol/L (3.5-5.0)
[2020-10-18 16:51] LABS: Magnesium 2.3 mg/dL (1.9-2.7)
[2020-10-18 16:57] LABS: Phosphorus 3.5 mg/dL (2.5-5.0)
[2020-10-18] MEDS: Albuterol 2.5mg/3 ml (0.083%) NEB.SOLN INH SCH (19:39)
[2020-10-18] MEDS: Mometasone/Formoter 200/5 MDI INH SCH (19:39)
[2020-10-18] MEDS: Insulin GLARGINE 100 un/ml 10 ml VIAL SUBCUT SCH (20:43)
[2020-10-19] MEDS: Albuterol 2.5mg/3 ml (0.083%) NEB.SOLN INH SCH ×4 (02:17→19:07)
[2020-10-19] MEDS: Heparin 5000 UNITS/ML 1 mL VIAL SUBCUT SCH ×3 (05:00→21:02)
[2020-10-19] MEDS: Mometasone/Formoter 200/5 MDI INH SCH ×2 (07:31→19:17)
[2020-10-19 08:16] LABS: ABS Eosinophils 0.3 10^3/ul (0-0.6); ABS Monocytes 0.6 10^3/ul (0-0.8); ABS Neutrophils 6.1 10^3/ul (1.5-7.7); Eosinophil % 3.9 %; Hematocrit 42 % (42-52); Hemoglobin 13.6 g/dL (14.0-18.0); Lymphocyte % 12.1 %; Mean Corpuscular HGB Conc 32 g/dL (31-36); Mean Corpuscular Hemoglobin 26 pg (27-31); Mean Corpuscular Volume 80 fL (80-94); Mean Platelet Volume 7.9 fL (7.4-10.4); Platelet Count 202 10^3/uL (150-450); Red Blood Count 5.23 10^6 /uL (4.18-5.48); Red Cell Distribution Width 14 % (10-15); White Blood Count 8.1 10^3/uL (3.5-10.8)
[2020-10-19 08:34] LABS: BUN/Creatinine Ratio 21.6 (8-20); Calcium 8.8 mg/dL (8.6-10.3); EGFR African American 125.5 (>60); EGFR Non-African American 103.7 (>60); Phosphorus 2.4 mg/dL (2.5-5.0)
[2020-10-19] MEDS: Multivitamins/Minerals TAB PO SCH (09:18)
[2020-10-19] MEDS: Nystatin TOP POWDER 15 GM BTL TOPICAL SCH ×2 (09:19→21:09)
[2020-10-19] MEDS: SPIRIVA Respimat (tiotropium) 2.5 mcg/inh Inhaler INH SCH (09:55)
[2020-10-19] MEDS ORDERED: Potassium Phosphate IV 10 MMOLE in NS 0.9% 250 ml 250 ML IVPB ONE (16:15)
[2020-10-19] MEDS ORDERED: Insulin GLARGINE 100 un/ml 10 ml VIAL SUBCUT SCH (21:00)
[2020-10-20] MEDS: Albuterol 2.5mg/3 ml (0.083%) NEB.SOLN INH SCH ×4 (00:35→19:16)
[2020-10-20] MEDS: Heparin 5000 UNITS/ML 1 mL VIAL SUBCUT SCH ×3 (05:29→21:39)
[2020-10-20 07:08] LABS: BUN/Creatinine Ratio 21.3 (8-20); Calcium 8.4 mg/dL (8.6-10.3); EGFR African American 156.8 (>60); EGFR Non-African American 129.6 (>60); Magnesium 1.8 mg/dL (1.9-2.7); Phosphorus 2.5 mg/dL (2.5-5.0)
[2020-10-20] MEDS ORDERED: Magnesium Sulfate 2 gm BAG 2 GM/50 ML BAG IVPB ONE (07:18)
[2020-10-20] MEDS: Mometasone/Formoter 200/5 MDI INH SCH ×2 (07:38→21:06)
[2020-10-20] MEDS: SPIRIVA Respimat (tiotropium) 2.5 mcg/inh Inhaler INH SCH (07:38)
[2020-10-20] MEDS: Multivitamins/Minerals TAB PO SCH (08:06)
[2020-10-20] MEDS: Nystatin TOP POWDER 15 GM BTL TOPICAL SCH ×2 (08:07→19:56)
[2020-10-20] MEDS ORDERED: Insulin GLARGINE 100 un/ml 10 ml VIAL SUBCUT SCH (21:00)
[2020-10-21] MEDS: Albuterol 2.5mg/3 ml (0.083%) NEB.SOLN INH SCH ×3 (02:00→12:58)
[2020-10-21] MEDS: Heparin 5000 UNITS/ML 1 mL VIAL SUBCUT SCH ×2 (05:22→13:40)
[2020-10-21 06:13] LABS: BUN/Creatinine Ratio 23.5 (8-20); Calcium 8.7 mg/dL (8.6-10.3); EGFR African American 138.3 (>60); EGFR Non-African American 114.3 (>60); Magnesium 1.8 mg/dL (1.9-2.7); Potassium 3.8 mmol/L (3.5-5.0)
[2020-10-21] MEDS: SPIRIVA Respimat (tiotropium) 2.5 mcg/inh Inhaler INH SCH (07:42)
[2020-10-21] MEDS: Mometasone/Formoter 200/5 MDI INH SCH (07:42)
[2020-10-21] MEDS: Multivitamins/Minerals TAB PO SCH (08:46)
[2020-10-21] MEDS: Nystatin TOP POWDER 15 GM BTL TOPICAL SCH (08:47)
[2020-10-21 16:05] VITALS: BP 158/96
== END 2020-10-21 17:00 | disposition home health service (06) | DRG 917 ==
LOC: ED 11:36 → ICU 13:30 → MEDTELE 10-18 20:40
PROVIDERS: ADMIT Internal Medicine; ATTEND Pediatrics

== ENCOUNTER 2021-10-16 12:59 | Inpatient (IN) ==
[2021-10-16] MEDS ORDERED: methylPREDNISolone 125 mg 2 ML VIAL IV ONE (14:14)
[2021-10-16] MEDS ORDERED: Albuterol HFA INHALER 8 gm MDI INH ONE (14:14)
[2021-10-16 14:16] LABS: ABS Basophils 0.1 10^3/ul (0-0.2); ABS Eosinophils 0.3 10^3/ul (0-0.6); ABS Lymphocytes 0.9 10^3/ul (1.0-4.8); ABS Monocytes 0.7 10^3/ul (0-0.8); ABS Neutrophils 7.1 10^3/ul (1.5-7.7); Eosinophil % 3.3 %; Hematocrit 41 % (42-52); Hemoglobin 13.3 g/dL (14.0-18.0); Lymphocyte % 9.7 %; Mean Corpuscular HGB Conc 33 g/dL (31-36); Mean Corpuscular Hemoglobin 26 pg (27-31); Mean Corpuscular Volume 80 fL (80-94); Mean Platelet Volume 8.3 fL (7.4-10.4); Platelet Count 239 10^3/uL (150-450); Red Blood Count 5.08 10^6 /uL (4.18-5.48); Red Cell Distribution Width 14 % (10-15)
[2021-10-16] MEDS ORDERED: DOXYcycline 100 MG in NS 0.9% 250 ml 250 ML IVPB ONE (14:22)
[2021-10-16 14:36] LABS: PCO2 Arterial 58 mmHg (35-45); PO2 Arterial 74 mmHg (80-100)
[2021-10-16 14:57] LABS: Albumin 4.1 g/dL (3.2-5.2); Albumin/Globulin Ratio 1.6 (1-3); Calcium 9.5 mg/dL (8.6-10.3); Globulin 2.5 g/dL (2-4); Magnesium 1.2 mg/dL (1.9-2.7); Potassium 4.4 mmol/L (3.5-5.0); Total Bilirubin 0.4 mg/dL (0.2-1.0); Total Protein 6.6 g/dL (6.4-8.9); eGFR CKD-EPI 92.5 (>60)
[2021-10-16 15:39] LABS: High Sensitivity Troponin 1 Hr 5 pg/mL (<20)
[2021-10-16 16:06] LABS: Urine Appearance Clear; Urine Bilirubin Negative (Negative); Urine Blood Negative (Negative); Urine Color Straw; Urine Glucose 3+(>=500 mg/dL) (Negative); Urine Ketones Negative (Negative); Urine Nitrite Negative (Negative); Urine Protein Negative (Negative); Urine Specific Gravity 1.007 (1.002-1.030); Urine Urobilinogen Negative (Negative)
[2021-10-16] MEDS: Albuterol/Ipratropium NEB.SOL (2.5/0.5 MG) 3 ML NEB.SOLN INH ONE (20:16)
[2021-10-16] MEDS ORDERED: Magnesium Sulf 4 GM/100 ML IV 4,000 MG/100 ML BAG IVPB ONE (20:27)
[2021-10-16] MEDS ORDERED: Albuterol HFA INHALER 8 gm MDI INH PRN (20:43)
[2021-10-16] MEDS ORDERED: Albuterol/Ipratropium NEB.SOL (2.5/0.5 MG) 3 ML NEB.SOLN INH SCH ×2 (21:00→23:00)
[2021-10-16] MEDS ORDERED: Dextrose 50% Syringe 50 ml 25 GM/50 ML SYRINGE IV PUSH PRN (21:01)
[2021-10-16] MEDS: MICONAZOLE NITRATE 2% TOPICAL SCH (23:09)
[2021-10-16] MEDS: Enoxaparin 40 MG/0.4 ML SYR SUBCUT SCH (23:24)
[2021-10-16] MEDS: methylPREDNISolone SOD 40 mg/ml 1 ml VIAL IV SCH (23:24)
[2021-10-17] MEDS: Azithromycin 500 mg/250 ml NS 500 MG/250 ML BAG IVPB SCH ×2 (00:14→21:39)
[2021-10-17] MEDS: Albuterol/Ipratropium NEB.SOL (2.5/0.5 MG) 3 ML NEB.SOLN INH ONE (00:23)
[2021-10-17 00:35] LABS: TSH Ultra Thyroid Stim Horm 0.73 mcIU/mL (0.34-5.60)
[2021-10-17] MEDS: cefTRIAXone 1 gm/50 mL D5W 1 GM/50 ML BAG IV SCH ×2 (01:44→23:09)
[2021-10-17] MEDS: Albuterol HFA INHALER 8 gm MDI INH SCH ×5 (02:38→20:35)
[2021-10-17] MEDS: Ipratropium HFA INHALER(NF) (ALTERNATIVE = NEBS) INH SCH ×5 (02:39→20:34)
[2021-10-17] MEDS: methylPREDNISolone SOD 40 mg/ml 1 ml VIAL IV SCH ×3 (05:45→21:39)
[2021-10-17 06:23] LABS: ABS Lymphocytes 0.6 10^3/ul (1.0-4.8); ABS Monocytes 0.1 10^3/ul (0-0.8); ABS Neutrophils 6.9 10^3/ul (1.5-7.7); Hematocrit 40 % (42-52); Hemoglobin 13.3 g/dL (14.0-18.0); Mean Corpuscular HGB Conc 33 g/dL (31-36); Mean Corpuscular Hemoglobin 26 pg (27-31); Mean Corpuscular Volume 80 fL (80-94); Mean Platelet Volume 8.3 fL (7.4-10.4); Platelet Count 218 10^3/uL (150-450); Red Blood Count 5.03 10^6 /uL (4.18-5.48); Red Cell Distribution Width 14 % (10-15); White Blood Count 7.7 10^3/uL (3.5-10.8)
[2021-10-17 07:00] LABS: Calcium 8.9 mg/dL (8.6-10.3); Potassium 4.1 mmol/L (3.5-5.0); eGFR CKD-EPI 96.3 (>60)
[2021-10-17] MEDS ORDERED: Mometasone/Formoter 200/5 MDI INH SCH (07:00)
[2021-10-17] MEDS: Isosorbide Mononit ER 30mg TAB PO SCH (08:50)
[2021-10-17] MEDS: MICONAZOLE NITRATE 2% TOPICAL SCH (08:51)
[2021-10-17 12:13] LABS: Glucose Confirmatory 492 mg/dL (70-100)
[2021-10-17] MEDS: Miconazole TOPICAL CREAM 2% 30 GM TOPICAL SCH ×2 (14:09→22:15)
[2021-10-17 17:27] LABS: Glucose Confirmatory 469 mg/dL (70-100)
[2021-10-17] MEDS ORDERED: Insulin GLARGINE 100 un/ml 10 ml VIAL SUBCUT SCH (21:00)
[2021-10-17 21:03] LABS: Glucose Confirmatory 421 mg/dL (70-100)
[2021-10-17] MEDS: Enoxaparin 40 MG/0.4 ML SYR SUBCUT SCH (21:38)
[2021-10-18 05:27] LABS: ABS Lymphocytes 0.5 10^3/ul (1.0-4.8); ABS Monocytes 0.3 10^3/ul (0-0.8); Hematocrit 39 % (42-52); Hemoglobin 12.8 g/dL (14.0-18.0); Mean Corpuscular HGB Conc 33 g/dL (31-36); Mean Corpuscular Hemoglobin 26 pg (27-31); Mean Corpuscular Volume 79 fL (80-94); Mean Platelet Volume 8.3 fL (7.4-10.4); Platelet Count 225 10^3/uL (150-450); Red Blood Count 4.88 10^6 /uL (4.18-5.48); Red Cell Distribution Width 14 % (10-15); White Blood Count 8.8 10^3/uL (3.5-10.8)
[2021-10-18] MEDS: methylPREDNISolone SOD 40 mg/ml 1 ml VIAL IV SCH ×3 (05:33→22:28)
[2021-10-18] MEDS: Albuterol HFA INHALER 8 gm MDI INH SCH ×7 (05:34→22:38)
[2021-10-18] MEDS: Ipratropium HFA INHALER(NF) (ALTERNATIVE = NEBS) INH SCH ×7 (05:34→22:37)
[2021-10-18 06:04] LABS: Calcium 8.6 mg/dL (8.6-10.3); Magnesium 1.9 mg/dL (1.9-2.7); Potassium 3.9 mmol/L (3.5-5.0); eGFR CKD-EPI 93.2 (>60)
[2021-10-18] MEDS: Isosorbide Mononit ER 30mg TAB PO SCH (08:11)
[2021-10-18] MEDS: Miconazole TOPICAL CREAM 2% 30 GM TOPICAL SCH ×2 (08:11→21:00)
[2021-10-18] MEDS ORDERED: Dextrose 50% Syringe 50 ml 25 GM/50 ML SYRINGE IV PUSH PRN (11:31)
[2021-10-18 12:13] LABS: Glucose Confirmatory 448 mg/dL (70-100)
[2021-10-18] MEDS ORDERED: Insulin GLARGINE 100 un/ml 10 ml VIAL SUBCUT SCH (21:00)
[2021-10-18] MEDS: Azithromycin 500 mg/250 ml NS 500 MG/250 ML BAG IVPB SCH (21:10)
[2021-10-18] MEDS: Enoxaparin 40 MG/0.4 ML SYR SUBCUT SCH (21:12)
[2021-10-18] MEDS: Insulin GLARGINE 100 un/ml 10 ml VIAL SUBCUT SCH (21:13)
[2021-10-18] MEDS: cefTRIAXone 1 gm/50 mL D5W 1 GM/50 ML BAG IV SCH (22:27)
[2021-10-19] MEDS: Albuterol HFA INHALER 8 gm MDI INH SCH ×3 (03:59→11:22)
[2021-10-19] MEDS: Ipratropium HFA INHALER(NF) (ALTERNATIVE = NEBS) INH SCH ×3 (04:00→11:19)
[2021-10-19 06:06] LABS: ABS Lymphocytes 0.4 10^3/ul (1.0-4.8); ABS Monocytes 0.3 10^3/ul (0-0.8); ABS Neutrophils 7.1 10^3/ul (1.5-7.7); Hematocrit 37 % (42-52); Hemoglobin 12.6 g/dL (14.0-18.0); Lymphocyte % 5.5 %; Mean Corpuscular HGB Conc 34 g/dL (31-36); Mean Corpuscular Hemoglobin 27 pg (27-31); Mean Corpuscular Volume 79 fL (80-94); Mean Platelet Volume 8.4 fL (7.4-10.4); Nucleated Red Blood Cells % 0.1; Platelet Count 210 10^3/uL (150-450); Red Blood Count 4.71 10^6 /uL (4.18-5.48); Red Cell Distribution Width 14 % (10-15); White Blood Count 7.8 10^3/uL (3.5-10.8)
[2021-10-19 06:26] LABS: Calcium 8.8 mg/dL (8.6-10.3); Magnesium 2.1 mg/dL (1.9-2.7); Potassium 3.8 mmol/L (3.5-5.0); eGFR CKD-EPI 96.7 (>60)
[2021-10-19] MEDS: methylPREDNISolone SOD 40 mg/ml 1 ml VIAL IV SCH ×2 (06:31→17:41)
[2021-10-19] MEDS ORDERED: Potassium Chlor 20 meq TAB.ER PO ONE (07:19)
[2021-10-19] MEDS: Isosorbide Mononit ER 30mg TAB PO SCH (08:04)
[2021-10-19] MEDS: Miconazole TOPICAL CREAM 2% 30 GM TOPICAL SCH ×2 (08:06→20:26)
[2021-10-19] MEDS ORDERED: Furosemide 20 mg/2 ml IV VIAL IV SLOW PU ONE (10:00)
[2021-10-19 11:49] LABS: Glucose Confirmatory 428 mg/dL (70-100)
[2021-10-19] MEDS ORDERED: Perflutren Lipid Microsphere 3 ML VIAL ONE (13:54)
[2021-10-19] MEDS: Albuterol/Ipratropium NEB.SOL (2.5/0.5 MG) 3 ML NEB.SOLN INH SCH ×2 (14:48→19:23)
[2021-10-19] MEDS: Insulin GLARGINE 100 un/ml 10 ml VIAL SUBCUT SCH (20:20)
[2021-10-19] MEDS: Enoxaparin 40 MG/0.4 ML SYR SUBCUT SCH (20:29)
[2021-10-19] MEDS: cefTRIAXone 1 gm/50 mL D5W 1 GM/50 ML BAG IV SCH (21:44)
[2021-10-20] MEDS: Albuterol/Ipratropium NEB.SOL (2.5/0.5 MG) 3 ML NEB.SOLN INH SCH ×3 (00:54→13:03)
[2021-10-20] MEDS: methylPREDNISolone SOD 40 mg/ml 1 ml VIAL IV SCH (05:29)
[2021-10-20 05:58] LABS: ABS Lymphocytes 0.5 10^3/ul (1.0-4.8); ABS Monocytes 0.4 10^3/ul (0-0.8); ABS Neutrophils 6.1 10^3/ul (1.5-7.7); Hematocrit 41 % (42-52); Hemoglobin 13.3 g/dL (14.0-18.0); Lymphocyte % 6.8 %; Mean Corpuscular HGB Conc 33 g/dL (31-36); Mean Corpuscular Hemoglobin 26 pg (27-31); Mean Corpuscular Volume 80 fL (80-94); Mean Platelet Volume 8.4 fL (7.4-10.4); Platelet Count 208 10^3/uL (150-450); Red Blood Count 5.13 10^6 /uL (4.18-5.48); Red Cell Distribution Width 14 % (10-15); White Blood Count 6.9 10^3/uL (3.5-10.8)
[2021-10-20 06:12] LABS: Calcium 8.6 mg/dL (8.6-10.3); Magnesium 2.1 mg/dL (1.9-2.7); Potassium 3.6 mmol/L (3.5-5.0); eGFR CKD-EPI 99.8 (>60)
[2021-10-20] MEDS: Isosorbide Mononit ER 30mg TAB PO SCH (08:52)
[2021-10-20] MEDS: Miconazole TOPICAL CREAM 2% 30 GM TOPICAL SCH (08:53)
[2021-10-20 10:52] VITALS: BP 91/63
[2021-10-20 12:08] LABS: Glucose Confirmatory 416 mg/dL (70-100)
== END 2021-10-20 15:15 | disposition home or self-care (01) | DRG 133 ==
LOC: ED 12:59 → SUATTDRO 20:15 → EDHOLD 20:15 → MED 21:35
PROVIDERS: ADMIT Hospitalist; ATTEND Internal Medicine

== ENCOUNTER 2022-09-06 08:47 | Observation (INO) ==
[~2022-09-06 08:47] MED LIST: Mometasone/Formoter 200/5 MDI INH SCH
[2022-09-06 09:33] LABS: ABS Eosinophils 0.3 10^3/ul (0-0.6); ABS Lymphocytes 1.3 10^3/ul (1.0-4.8); ABS Monocytes 0.7 10^3/ul (0-0.8); ABS Neutrophils 8.3 10^3/ul (1.5-7.7); Eosinophil % 2.5 %; Hematocrit 44 % (42-52); Hemoglobin 13.9 g/dL (14.0-18.0); Lymphocyte % 11.7 %; Mean Corpuscular HGB Conc 32 g/dL (31-36); Mean Corpuscular Hemoglobin 26 pg (27-31); Mean Corpuscular Volume 83 fL (80-94); Mean Platelet Volume 7.9 fL (7.4-10.4); Platelet Count 263 10^3/uL (150-450); Red Blood Count 5.26 10^6 /uL (4.18-5.48); Red Cell Distribution Width 15 % (10-15); White Blood Count 10.6 10^3/uL (3.5-10.8)
[2022-09-06 09:44] LABS: INR 1.07 (0.88-1.18)
[2022-09-06 10:11] LABS: Albumin/Globulin Ratio 1.7 (1-3); Creatinine, Serum 0.77 mg/dL (0.67-1.17); Globulin 2.3 g/dL (2-4); Total Bilirubin 0.5 mg/dL (0.2-1.0); Total Protein 6.3 g/dL (6.4-8.9); eGFR CKD-EPI 93.4 (>60)
[2022-09-06] MEDS ORDERED: Dexamethasone IV 4 MG/ML VIAL 1 ml VIAL IV SLOW PU ONE (10:21)
[2022-09-06] MEDS ORDERED: Magnesium Sulfate 2 gm BAG 2 GM/50 ML BAG IVPB ONE (10:21)
[2022-09-06] MEDS: Albuterol/Ipratropium NEB.SOL (2.5/0.5 MG) 3 ML NEB.SOLN INH SCH ×3 (10:31→19:57)
[2022-09-06 10:58] LABS: High Sensitivity Troponin 1 Hr 7 pg/mL (<20)
[2022-09-06 11:45] LABS: PCO2 Arterial 65 mmHg (35-45); PO2 Arterial 73 mmHg (80-100)
[2022-09-06] MEDS ORDERED: Albuterol (2.5 MG) 0.5 % CONC 0.5 ML NEB.SOLN INH ONE (14:21)
[2022-09-06 16:01] LABS: C Reactive Protein 14.71 mg/L (<8.01)
[2022-09-06] MEDS ORDERED: Polyethylene Glycol 3350 17 GM PACKET PO PRN (16:18)
[2022-09-06] MEDS ORDERED: Dextrose 50% Syringe 50 ml 25 GM/50 ML SYRINGE IV PUSH PRN (16:25)
[2022-09-06] MEDS ORDERED: Albuterol/Ipratropium NEB.SOL (2.5/0.5 MG) 3 ML NEB.SOLN INH SCH (17:00)
[2022-09-06] MEDS: Enoxaparin 40 MG/0.4 ML SYR SUBCUT SCH (17:26)
[2022-09-06] MEDS: methylPREDNISolone SOD SUCC 40 mg/ml 1 ml VIAL IV SCH (17:26)
[2022-09-06 17:28] LABS: Glucose Confirmatory 448 mg/dL (70-100)
[2022-09-07] MEDS ORDERED: Metoprolol Tartrate 5 mg VIAL 5 ml VIAL (1 mg/ml) IV PRN (02:29)
[2022-09-07] MEDS ORDERED: Enalaprilat IV 1.25 mg/ml 1 ml VIAL (1.25 MG) IV PRN (02:30)
[2022-09-07] MEDS: methylPREDNISolone SOD SUCC 40 mg/ml 1 ml VIAL IV SCH ×3 (03:26→17:24)
[2022-09-07] MEDS: Mometasone/Formoter 200/5 MDI INH SCH ×2 (07:15→19:36)
[2022-09-07] MEDS: Albuterol/Ipratropium NEB.SOL (2.5/0.5 MG) 3 ML NEB.SOLN INH SCH ×4 (07:15→19:36)
[2022-09-07] MEDS: Cholecalciferol (VIT D3) 1,000 unit TAB PO SCH (08:56)
[2022-09-07] MEDS: Isosorbide Mononit ER 30mg TAB PO SCH (08:57)
[2022-09-07 09:11] LABS: ABS Lymphocytes 0.6 10^3/ul (1.0-4.8); ABS Monocytes 0.3 10^3/ul (0-0.8); ABS Neutrophils 9.5 10^3/ul (1.5-7.7); Hematocrit 45 % (42-52); Hemoglobin 14.3 g/dL (14.0-18.0); Lymphocyte % 5.6 %; Mean Corpuscular HGB Conc 32 g/dL (31-36); Mean Corpuscular Hemoglobin 27 pg (27-31); Mean Corpuscular Volume 83 fL (80-94); Mean Platelet Volume 8.2 fL (7.4-10.4); Platelet Count 254 10^3/uL (150-450); Red Blood Count 5.36 10^6 /uL (4.18-5.48); Red Cell Distribution Width 15 % (10-15); White Blood Count 10.4 10^3/uL (3.5-10.8)
[2022-09-07 09:25] LABS: Rapid COVID-19 Molecular Undetected (Undetected)
[2022-09-07 09:47] LABS: Calcium 9.1 mg/dL (8.6-10.3); Creatinine, Serum 0.79 mg/dL (0.67-1.17); Potassium 4.4 mmol/L (3.5-5.0); eGFR CKD-EPI 92.6 (>60)
[2022-09-07 14:31] LABS: Glucose Confirmatory 420 mg/dL (70-100)
[2022-09-07] MEDS: Enoxaparin 40 MG/0.4 ML SYR SUBCUT SCH (17:24)
[2022-09-08] MEDS: methylPREDNISolone SOD SUCC 40 mg/ml 1 ml VIAL IV SCH (04:05)
[2022-09-08] MEDS: Mometasone/Formoter 200/5 MDI INH SCH (07:04)
[2022-09-08] MEDS: Albuterol/Ipratropium NEB.SOL (2.5/0.5 MG) 3 ML NEB.SOLN INH SCH ×2 (07:04→11:33)
[2022-09-08 08:15] LABS: ABS Lymphocytes 0.8 10^3/ul (1.0-4.8); ABS Monocytes 0.5 10^3/ul (0-0.8); ABS Neutrophils 13.4 10^3/ul (1.5-7.7); Hematocrit 45 % (42-52); Hemoglobin 14.4 g/dL (14.0-18.0); Lymphocyte % 5.5 %; Mean Corpuscular HGB Conc 32 g/dL (31-36); Mean Corpuscular Hemoglobin 27 pg (27-31); Mean Corpuscular Volume 83 fL (80-94); Mean Platelet Volume 8.4 fL (7.4-10.4); Nucleated Red Blood Cells % 0.1; Platelet Count 281 10^3/uL (150-450); Red Blood Count 5.42 10^6 /uL (4.18-5.48); Red Cell Distribution Width 15 % (10-15); White Blood Count 14.8 10^3/uL (3.5-10.8)
[2022-09-08 08:34] LABS: Calcium 9.3 mg/dL (8.6-10.3); Creatinine, Serum 0.76 mg/dL (0.67-1.17); Potassium 4.5 mmol/L (3.5-5.0); eGFR CKD-EPI 93.7 (>60)
[2022-09-08] MEDS: Isosorbide Mononit ER 30mg TAB PO SCH (08:38)
[2022-09-08] MEDS: Cholecalciferol (VIT D3) 1,000 unit TAB PO SCH (08:39)
[2022-09-08 09:46] VITALS: BP 118/64
== END 2022-09-08 12:30 | disposition home or self-care (01) ==
LOC: EDHOLD 08:47 → ED 08:47 → SUATTDRO 16:18 → EDHOLD 09-07 12:24 → MED 09-07 13:39
PROVIDERS: ADMIT Internal Medicine; ATTEND Internal Medicine

== ENCOUNTER 2022-09-27 09:10 | Observation (INO) ==
[2022-09-27 09:52] LABS: PO2 Arterial 104 mmHg (80-100)
[2022-09-27 09:54] LABS: PCO2 Arterial 74 mmHg (35-45)
[2022-09-27 10:01] LABS: ABS Eosinophils 0.2 10^3/ul (0-0.6); ABS Lymphocytes 1.2 10^3/ul (1.0-4.8); ABS Monocytes 0.6 10^3/ul (0-0.8); ABS Neutrophils 6.6 10^3/ul (1.5-7.7); Eosinophil % 2.3 %; Hematocrit 44 % (42-52); Hemoglobin 14.2 g/dL (14.0-18.0); Lymphocyte % 14.2 %; Mean Corpuscular HGB Conc 32 g/dL (31-36); Mean Corpuscular Hemoglobin 27 pg (27-31); Mean Corpuscular Volume 85 fL (80-94); Mean Platelet Volume 7.9 fL (7.4-10.4); Platelet Count 189 10^3/uL (150-450); Red Blood Count 5.25 10^6 /uL (4.18-5.48); Red Cell Distribution Width 14 % (10-15); White Blood Count 8.7 10^3/uL (3.5-10.8)
[2022-09-27 10:09] LABS: INR 1.01 (0.88-1.18)
[2022-09-27 10:46] LABS: Albumin/Globulin Ratio 1.8 (1-3); C Reactive Protein 13.09 mg/L (<8.01); Calcium 9.4 mg/dL (8.6-10.3); Creatinine, Serum 0.76 mg/dL (0.67-1.17); Globulin 2.2 g/dL (2-4); Magnesium 1.8 mg/dL (1.9-2.7); Phosphorus 4.1 mg/dL (2.5-5.0); Potassium 4.2 mmol/L (3.5-5.0); Total Bilirubin 0.4 mg/dL (0.2-1.0); Total Protein 6.2 g/dL (6.4-8.9); eGFR CKD-EPI 93.7 (>60)
[2022-09-27 11:46] LABS: High Sensitivity Troponin 1 Hr 7 pg/mL (<20)
[2022-09-27 12:26] LABS: PO2 Arterial 370 mmHg (80-100)
[2022-09-27 12:34] LABS: PCO2 Arterial 77 mmHg (35-45)
[2022-09-27] MEDS ORDERED: Albuterol/Ipratropium NEB.SOL (2.5/0.5 MG) 3 ML NEB.SOLN INH ONE (14:32)
[2022-09-27] MEDS ORDERED: Albuterol HFA INHALER 8 gm MDI INH PRN (16:01)
[2022-09-27] MEDS ORDERED: Albuterol/Ipratropium NEB.SOL (2.5/0.5 MG) 3 ML NEB.SOLN INH PRN (16:01)
[2022-09-27] MEDS ORDERED: Enoxaparin 40 MG/0.4 ML SYR SUBCUT SCH (17:00)
[2022-09-27] MEDS: Mometasone/Formoter 200/5 MDI INH SCH (19:29)
[2022-09-27] MEDS ORDERED: Magnesium Sulfate 2 gm BAG 2 GM/50 ML BAG IVPB ONE (21:27)
[2022-09-28] MEDS: Mometasone/Formoter 200/5 MDI INH SCH (07:24)
[2022-09-28] MEDS ORDERED: SPIRIVA Respimat (tiotropium) 2.5 mcg/inh Inhaler INH SCH (09:00)
[2022-09-28] MEDS ORDERED: Isosorbide Mononit ER 30mg TAB PO SCH (09:00)
[2022-09-28 09:02] VITALS: BP 122/70
[2022-09-28 10:08] LABS: Urine Appearance Clear; Urine Bilirubin Negative (Negative); Urine Blood Negative (Negative); Urine Color Yellow; Urine Glucose Negative (Negative); Urine Ketones Trace (Negative); Urine Nitrite Negative (Negative); Urine Protein Negative (Negative); Urine Specific Gravity 1.026 (1.002-1.030); Urine Urobilinogen Negative (Negative)
== END 2022-09-28 14:19 | disposition home or self-care (01) ==
LOC: EDHOLD 09:10 → ED 09:10 → EDHOLD 16:35 → MEDTELE 16:59
PROVIDERS: ADMIT Student in an Organized Health Care Education/Training Program; ATTEND Student in an Organized Health Care Education/Training Program

== ENCOUNTER 2023-08-10 04:50 | Inpatient (IN) ==
[2023-08-10] MEDS ORDERED: Rocuronium 50 mg VIAL 10 mg/ml 5 ml VIAL (50 mg) ONE (05:24)
[2023-08-10] MEDS ORDERED: Succinylcholine 200 mg VIAL 20 mg/ml 10 ml VIAL (200 mg) ONE (05:25)
[2023-08-10 05:27] LABS: ABS Basophils 0.1 10^3/uL (0.0-0.1); ABS Eosinophils 0.1 10^3/uL (0.0-0.5); ABS Lymphocytes 2.5 10^3/uL (1.0-4.8); ABS Monocytes 0.8 10^3/uL (0.0-1.1); ABS Neutrophils 10.5 10^3/uL (1.5-7.6); ABS Nucleated RBC 0.02 10^3/ul; Eosinophil % 0.7 %; Hematocrit 46.3 % (38-53); Hemoglobin 15.2 g/dL (13.2-16.3); Lymphocyte % 17.6 %; Mean Corpuscular Hemoglobin 26.7 pg (27-33); Mean Corpuscular Hgb Conc 32.9 g/dL (31-36); Mean Corpuscular Volume 81.2 fL (80-97); Nucleated Red Blood Cells % 0.1 %/100WBC (0.0-0.8); Platelet Count 223 10^3/uL (150-450); Red Cell Distribution Width 14.9 % (12-17)
[2023-08-10 05:34] LABS: PO2 Arterial 112 mmHg (80-100)
[2023-08-10] MEDS: Piperacillin/Tazobac 3.375 BAG 3.375 GM/100 ML BAG IV ONE (05:36)
[2023-08-10 05:37] LABS: PCO2 Arterial > 100 mmHg (35-45)
[2023-08-10] MEDS ORDERED: Albuterol/Ipratropium NEB.SOL (2.5/0.5 MG) 3 ML NEB.SOLN ONE (05:39)
[2023-08-10] MEDS: Albuterol/Ipratropium NEB.SOL (2.5/0.5 MG) 3 ML NEB.SOLN INH ONE ×3 (05:42)
[2023-08-10 05:47] LABS: Albumin 4.3 g/dL (3.2-5.2); Albumin/Globulin Ratio 1.4 (1-3); C Reactive Protein 17.94 mg/L (<8.01); Calcium 9.1 mg/dL (8.6-10.3); Creatinine, Serum 1.03 mg/dL (0.67-1.17); Globulin 3.1 g/dL (2-4); Potassium 4.4 mmol/L (3.5-5.0); Total Bilirubin 0.5 mg/dL (0.2-1.0); Total Protein 7.4 g/dL (6.4-8.9); eGFR CKD-EPI 75.3 (>60)
[2023-08-10] MEDS: Acetaminophen IV 1 GM/100ML 1,000 MG/100 ML BAG IV ONE (06:01)
[2023-08-10 06:09] LABS: Urine Appearance Clear; Urine Bilirubin Negative (Negative); Urine Blood Negative (Negative); Urine Color Yellow; Urine Glucose 3+(>=500 mg/dL) (Negative); Urine Ketones Negative (Negative); Urine Nitrite Negative (Negative); Urine Protein Negative (Negative); Urine Specific Gravity 1.024 (1.002-1.030); Urine Urobilinogen Negative (Negative)
[2023-08-10 06:34] LABS: PCO2 Arterial 56 mmHg (35-45); PO2 Arterial 99 mmHg (80-100)
[2023-08-10 06:44] LABS: High Sensitivity Troponin 1 Hr 8 pg/mL (<20)
[2023-08-10] MEDS: Vancomycin 1,500 MG in NS 0.9% 250 ml 250 ML IVPB ONE (06:57)
[2023-08-10] MEDS: methylPREDNISolone SOD SUCC 125 mg 2 ML VIAL IV ONE (07:49)
[2023-08-10] MEDS: Iodixanol (CONTRAST) 320 MG/ML 100 ML SDV IV ONE (09:54)
[2023-08-10] MEDS ORDERED: Albuterol/Ipratropium NEB.SOL (2.5/0.5 MG) 3 ML NEB.SOLN INH PRN (12:25)
[2023-08-10] MEDS ORDERED: Dextrose 50% Syringe 50 ml 25 GM/50 ML SYRINGE IV PUSH PRN (12:32)
[2023-08-10 14:46] LABS: INR 1.09 (0.83-1.13)
[2023-08-10] MEDS: cefTRIAXone 1 gm/50 mL D5W 1 GM/50 ML BAG IV ONE (15:53)
[2023-08-10] MEDS: Enoxaparin 40 MG/0.4 ML SYR SUBCUT SCH (16:11)
[2023-08-10] MEDS: Remdesivir 100 mg Vial 200 MG in NS 0.9% 250 ml 210 ML IV ONE (18:10)
[2023-08-10] MEDS: DOXYcycline 100 MG in NS 0.9% 250 ml 250 ML IVPB ONE (18:11)
[2023-08-10] MEDS: methylPREDNISolone SOD SUCC 40 mg/ml 1 ml VIAL IV SCH (18:16)
[2023-08-11] MEDS: DOXYcycline 100 MG in NS 0.9% 250 ml 250 ML IVPB SCH (06:28)
[2023-08-11 06:40] LABS: ABS Lymphocytes 0.4 10^3/uL (1.0-4.8); ABS Monocytes 0.6 10^3/uL (0.0-1.1); ABS Neutrophils 12.1 10^3/uL (1.5-7.6); ABS Nucleated RBC 0.02 10^3/ul; Hematocrit 43.9 % (38-53); Hemoglobin 14.1 g/dL (13.2-16.3); Lymphocyte % 3.3 %; Mean Corpuscular Hemoglobin 25.9 pg (27-33); Mean Corpuscular Hgb Conc 32.1 g/dL (31-36); Mean Corpuscular Volume 80.6 fL (80-97); Mean Platelet Volume 8.3 fL (7.5-11.2); Nucleated Red Blood Cells % 0.2 %/100WBC (0.0-0.8); Platelet Count 183 10^3/uL (150-450); Red Blood Count 5.45 10^6/uL (4.06-5.63); Red Cell Distribution Width 14.9 % (12-17); White Blood Count 13.2 10^3/uL (3.6-10.2)
[2023-08-11 06:42] LABS: INR 1.19 (0.83-1.13)
[2023-08-11 06:59] LABS: Albumin 3.9 g/dL (3.2-5.2); Albumin/Globulin Ratio 1.3 (1-3); Calcium 9.2 mg/dL (8.6-10.3); Creatinine, Serum 0.92 mg/dL (0.67-1.17); Potassium 4.1 mmol/L (3.5-5.0); Total Bilirubin 0.6 mg/dL (0.2-1.0); Total Protein 6.9 g/dL (6.4-8.9); eGFR CKD-EPI 86.2 (>60)
[2023-08-11] MEDS: SPIRIVA Respimat (tiotropium) 2.5 mcg/inh Inhaler INH SCH (09:37)
[2023-08-11] MEDS: Isosorbide Mononit ER 30mg TAB PO SCH (09:53)
[2023-08-11] MEDS: Albuterol HFA INHALER 8 gm MDI INH PRN (15:12)
[2023-08-11] MEDS: cefTRIAXone 1 gm/50 mL D5W 1 GM/50 ML BAG IV SCH (15:48)
[2023-08-11] MEDS: Remdesivir 100 mg Vial 100 MG in NS 0.9% 250 ml 230 ML IV SCH (22:51)
[2023-08-12 06:58] LABS: ABS Lymphocytes 0.4 10^3/uL (1.0-4.8); ABS Monocytes 0.5 10^3/uL (0.0-1.1); Hematocrit 41.4 % (38-53); Hemoglobin 13.4 g/dL (13.2-16.3); Lymphocyte % 4.3 %; Mean Corpuscular Hemoglobin 26.2 pg (27-33); Mean Corpuscular Hgb Conc 32.4 g/dL (31-36); Mean Corpuscular Volume 80.8 fL (80-97); Mean Platelet Volume 8.1 fL (7.5-11.2); Platelet Count 191 10^3/uL (150-450); Red Blood Count 5.12 10^6/uL (4.06-5.63)
[2023-08-12 07:08] LABS: INR 1.17 (0.83-1.13)
[2023-08-12 07:15] LABS: Albumin 3.8 g/dL (3.2-5.2); Albumin/Globulin Ratio 1.4 (1-3); Creatinine, Serum 0.77 mg/dL (0.67-1.17); Globulin 2.8 g/dL (2-4); Potassium 4.2 mmol/L (3.5-5.0); Total Bilirubin 0.5 mg/dL (0.2-1.0); Total Protein 6.6 g/dL (6.4-8.9); eGFR CKD-EPI 92.8 (>60)
[2023-08-12] MEDS: Empagliflozin 25 MG TAB PO SCH (08:14)
[2023-08-13 07:38] LABS: INR 1.15 (0.83-1.13)
[2023-08-13 08:02] LABS: ABS Lymphocytes 0.3 10^3/uL (1.0-4.8); ABS Monocytes 0.5 10^3/uL (0.0-1.1); Hematocrit 43.2 % (38-53); Lymphocyte % 3.6 %; Mean Corpuscular Hemoglobin 26.1 pg (27-33); Mean Corpuscular Hgb Conc 32.5 g/dL (31-36); Mean Corpuscular Volume 80.3 fL (80-97); Mean Platelet Volume 8.5 fL (7.5-11.2); Platelet Count 218 10^3/uL (150-450); Red Blood Count 5.38 10^6/uL (4.06-5.63); Red Cell Distribution Width 14.7 % (12-17); White Blood Count 8.9 10^3/uL (3.6-10.2)
[2023-08-13 08:09] LABS: Albumin 3.8 g/dL (3.2-5.2); Albumin/Globulin Ratio 1.3 (1-3); Calcium 9.3 mg/dL (8.6-10.3); Creatinine, Serum 0.78 mg/dL (0.67-1.17); Globulin 2.9 g/dL (2-4); Total Bilirubin 0.5 mg/dL (0.2-1.0); Total Protein 6.7 g/dL (6.4-8.9); eGFR CKD-EPI 92.4 (>60)
[2023-08-14 07:40] LABS: INR 1.09 (0.83-1.13)
[2023-08-14 07:47] LABS: Albumin 3.6 g/dL (3.2-5.2); Albumin/Globulin Ratio 1.4 (1-3); Calcium 8.9 mg/dL (8.6-10.3); Creatinine, Serum 0.92 mg/dL (0.67-1.17); Globulin 2.6 g/dL (2-4); Potassium 3.4 mmol/L (3.5-5.0); Total Bilirubin 0.4 mg/dL (0.2-1.0); Total Protein 6.2 g/dL (6.4-8.9); eGFR CKD-EPI 86.2 (>60)
[2023-08-14] MEDS: Potassium EFFERVES 25 meq TAB PO ONE (11:50)
[2023-08-15 07:51] LABS: INR 1.09 (0.83-1.13)
[2023-08-15 08:04] LABS: Albumin 3.7 g/dL (3.2-5.2); Albumin/Globulin Ratio 1.4 (1-3); Creatinine, Serum 0.73 mg/dL (0.67-1.17); Globulin 2.7 g/dL (2-4); Potassium 3.4 mmol/L (3.5-5.0); Total Bilirubin 0.5 mg/dL (0.2-1.0); Total Protein 6.4 g/dL (6.4-8.9); eGFR CKD-EPI 94.3 (>60)
[2023-08-15 08:40] LABS: Magnesium 2.3 mg/dL (1.9-2.7)
[2023-08-15] MEDS: Potassium Chloride LIQUID 20 MEQ/15 ML LIQUID PO ONE (08:44)
[2023-08-16 08:12] LABS: Calcium 8.4 mg/dL (8.6-10.3); Creatinine, Serum 0.82 mg/dL (0.67-1.17); Magnesium 2.3 mg/dL (1.9-2.7); Potassium 3.6 mmol/L (3.5-5.0)
[2023-08-19 11:10] VITALS: BP 106/74
== END 2023-08-19 12:00 | disposition home or self-care (01) | DRG 871 ==
LOC: ED 04:50 → EDHOLD 12:03 → SUATTDRO 12:03 → MED 16:27
PROVIDERS: ADMIT Internal Medicine; ATTEND Hospitalist